=== PATIENT | female | born 1960 | race Caucasian/White ===

== ENCOUNTER 2024-02-24 10:11 | Outpatient (OUT) | payer OTHER, SELFPAY ==
--- NOTE | 2024-02-24 10:29 | XR_ITS ---
The [address] [address] Patient Name: ALBERT ABREU MRN: [id number] date: 1960 Sex: F Assigned Patient Location: [facility] Current Patient Location: Accession/Order Number: [id number] Exam Date: 02/24/2024 10:23 Report Date: 02/25/2024 11:29 At the request of: ROLAND GOMEZ Procedure: XR abdomen 1V EXAMINATION: XR abdomen 1V HISTORY: Kidney Stone COMPARISON: XR KUB 02/27/2022 FINDINGS: KIDNEY/URETER - RIGHT: 5 mm stone projecting over right kidney. KIDNEY/URETER - LEFT: No visible renal or ureteral calcifications. PELVIS: No visible ureteral stones. Stable pelvic calcifications compatible with phleboliths. BOWEL: No abnormal dilation or deviation. BONES: Scoliotic curvature of spine. No appreciable acute abnormality. OTHER: Negative. No abnormal gaseous collections. XR/XR abdomen 1V IMPRESSION: 1. Right nephrolithiasis (5 mm stone suspected within right kidney). Electronically authenticated by: ISRRAEL COOPER Date: 02/25/2024 11:29
== END 2024-02-24 10:12 | disposition home or self-care (01) ==
LOC: RAD 10:16
PROVIDERS: PCP Internal Medicine; Visit Provider Urology
DX: N20.0 Calculus of kidney (principal)
CPT/HCPCS: 74018

== ENCOUNTER 2024-04-04 07:58 | Outpatient (OUT) | payer OTHER, SELFPAY ==
--- NOTE | 2024-04-04 08:02 | ECG_ITS ---
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
--- OUTSIDE RECORDS SUMMARY | 2024-04-04 08:09 | XMS_ITS | CCD ---
Author Organization [facility] Care Team Providers Care Remarketing Rep Name Role Phone Adrian Oneal Jr Attending Provider Juma Buckner Primary Care Provider [phone] Samm Palmer Primary Care Provider [phone] JUMA BUCKNER Primary Care Physician PATRICIA, DR WATKINS Admitting Unavailable VELEZ, DR WATKINS Attending Unavailable VELEZ, DR WATKINS Consulting Unavailable VELEZ, DR WATKINS Attending Unavailable VELEZ, DR WATKINS Consulting Unavailable VELEZ, DR WATKINS Admitting Unavailable HARSH, DR GREEN Primary Care Unavailable KENNETH, DR ISRRAEL Barksdale Consulting Unavailable GILLES ROD Consulting Unavailable VELEZ, DR WATKINS Admitting Unavailable HARSH, DR GREEN Primary Care Unavailable VELEZ, DR WATKINS Attending Unavailable VELEZ, DR WATKINS Consulting Unavailable VELEZ, DR WATKINS Admitting Unavailable BALL, DR GREEN Primary Care Unavailable VELEZ, DR WATKINS Attending Unavailable VELEZ, DR WATKINS Consulting Unavailable BALL, DR GREEN Referring Unavailable BALL, DR GREEN Primary Care Unavailable VELEZ, DR WATKINS Admitting Unavailable VELEZ, DR WATKINS Attending Unavailable VELEZ, DR WATKINS Consulting Unavailable ZIEBER, DR ISRRAEL Barksdale Consulting Unavailable Juma Buckner DO Primary Care Provider Karina Carlson Unavailable Juma Buckner DO Primary Care Provider Juma Buckner Unavailable NAN SARABIA Attending Unavailable RYAN DANIELS Referring Unavailable JUMA BUCKNER Primary Care Unavailable RYAN DANIELS Referring Unavailable JUMA BUCKNER Primary Care Unavailable Wu VELEZ Attending Unavailable Wu VELEZ Attending Unavailable Wu VELEZ Attending Unavailable Allergies Allergy Classification Reported Allergen(s) Allergy Type Date of Onset Reaction(s) Facility Cephalosporins (antibiotic) (1 source) Cephalexin Drug Allergy 1 [facility] (10 sources) Cephalexin; Translations: [cephalexin] Drug Allergy 7 Unknown, Weal (disorder) [facility] (5 sources) Cephalexin; Translations: [Keflex] Drug Allergy [facility] Repository Medications Current Medications Medication Drug Class(es) Dates Sig (Normalized) Sig (Original) Calcium (6 sources) Phosphate Binder, Calcium Start: 10-27-2019 Calcium Calcium, Oral, Daily Start Date: 10/27/19 Status: Ordered Calcium Active calcium carbonate 1250 mg / cholecalciferol 0.01 mg oral tablet (1 source) Vitamin D Start: 02-14-2021 Calcium Carbonate-Vitamin D3 (Calcium 500 + D) 500 mg(1,250mg) -400 unit Tablet Active 2 TAB PO Daily at bedtime February 14, 2021 10:30am Dexamethasone / Neomycin / Polymyxin B (3 sources) Aminoglycoside Antibacterial, Polymyxin-class Antibacterial, Corticosteroid Start: 10-28-2022 Maxitrol 3.5-13374-8 .1 apply directly under left eyelashes Ophthalmic Three times a day for 5 days Oct, Active Start: 10-28-2022 Maxitrol 3.5-1 0000-0.1 apply directly under left eyelashes Ophthalmic Three times a day for 5 days Oct, Active ibuprofen 600 mg oral tablet (1 source) Nonsteroidal Anti-inflammatory Drug Start: 11-07-2019 take 400 mg by mouth once daily Ibuprofen Active 400 MG PO Daily November 07, 2019 4:08pm potassium citrate 10 meq extended release oral tablet (1 source) Start: 02-29-2024 End: 02-23-2025 potassium CITRATE 10 mEq ER Tab 20 mEq, 2 tab(s), Oral, BID for 30 day(s), 120 tab(s), Refill(s) , [id number], 165, cm, 02/29/24 11:29:00 EDT, Height/Length Dosing, 58.5, kg, 02/29/24 11:29:00 EDT, Weight Dosing Start Date: 02/29/24 Stop Date: 02/23/25 Status: Ordered Vitamin D (2 sources) Start: 08-06-2022 Vitamin D International_Un it, Oral, qWeek Start Date: 08/06/22 Status: Ordered Completed/Discontinued Medications Medication Drug Class(es) Dates Sig (Normalized) Sig (Original) anastrozole 1 mg oral tablet (5 sources) Aromatase Inhibitor Start: 11-07-2019 anastrozole (ARIMIDEX) 1 mg tablet TAKE 1 TABLET DAILY 90 tablet 3 01/30/2021 Active Comment on above: TAKE 1 TABLET DAILY Calcium Carbonate / vitamin D3 (4 sources) CALCIUM CARBONATE/VITAMIN D3 (CALCIUM + D ORAL) Take by mouth. 0 Active Comment on above: Take by mouth. cefuroxime 500 mg oral tablet (3 sources) Cephalosporin Antibacterial Start: 01-18-2016 take 1 tablet by mouth twice daily Ceftin 500 MG 1 tablet Orally Twice a day for 10 day(s) January, Not-Taking cephalexin 500 mg oral tablet (3 sources) Cephalosporin Antibacterial Start: 04-19-2015 take 1 capsule by mouth four times daily Keflex 500 MG 1 capsule Orally Four times a day with probiotics for 10 day(s) Apr, Not-Taking cetirizine hydrochloride 10 mg oral tablet (3 sources) Histamine-1 Receptor Antagonist Start: 01-18-2016 take 1 tablet by mouth once daily as needed ZyrTEC Allergy 10 MG 1 tablet as needed Orally Once a day for 30 day(s) January, Not-Taking ciprofloxacin 500 mg oral tablet (1 source) Quinolone Antimicrobial Start: 11-07-2019 End: 02-14-2021 take 500 mg by mouth every twelve hours Ciprofloxacin Hcl Discontinued 500 MG PO Q12H 6 November 07, 2019 6:27pm February 14, 2021 10:32am K-Effervescent 25 mEq oral tablet, effervescent (1 source) Start: 08-06-2022 take 1 tablet by mouth twice daily K-Effervescent 25 mEq oral tablet, effervescent 25 mEq = 1 tab(s), Oral, BID, # 180 tab(s), Refills(s) 3, Pharmacy: [facility] #[id number], 165, cm, 08/06/22 15:18:00 EST, Height/Length Dosing, 56, kg, 08/06/22 15:18:00 EST, Weight Dosing Start Date: 08/06/22 Status: Ordered ketorolac tromethamine 10 mg oral tablet (1 source) Nonsteroidal Anti-inflammatory Drug, Cyclooxygenase Inhibitor Start: 11-07-2019 End: 02-14-2021 take 10 mg by mouth every six hours Ketorolac Discontinued 10 MG PO Q6H 10 15 November 07, 2019 6:27pm February 14, 2021 10:31am nitrofurantoin, macrocrystals 25 mg / nitrofurantoin, monohydrate 75 mg oral capsule (1 source) Nitrofuran Antibacterial Start: 11-07-2019 End: 02-14-2021 take 100 mg by mouth twice daily Nitrofurantoin Monohyd/M-Cryst Discontinued 100 MG PO Twice daily November 07, 2019 4:08pm February 14, 2021 10:31am potassium bicarbonate 25 meq effervescent oral tablet (4 sources) Start: 03-30-2023 KLOR-CON/EF 25 mEq disintegrating tablet predniSONE (3 sources) prednisone Not-Taking tamsulosin hydrochloride 0.4 mg oral capsule (1 source) alpha-Adrenergic Baldo Start: 11-07-2019 End: 02-14-2021 take 0.4 mg by mouth once daily Tamsulosin Discontinued 0.4 MG PO Daily November 07, 2019 4:08pm February 14, 2021 10:31am Problems Active Problems Problem Classification Problem Date Documented Da te Episodic/Chronic Abdominal pain (3 sources) Lower abdominal pain 10-27-2019 Episodic Calculus of urinary tract (16 sources) Kidney stone; Translations: [Calculus of kidney] Onset: 03-12-2022 Episodic Cancer of breast (11 sources) Malignant neoplasm of upper-outer quadrant of female breast; Translations: [Malignant neoplasm of upper-outer quadrant of right female breast] Onset: 09-16-2018 09-16-2018 Chronic Genitourinary symptoms and ill-defined conditions (13 sources) Microscopic hematuria; Translations: [Asymptomatic microscopic hematuria] Onset: 04-15-2021 Episodic Inflammation; infection of eye (except that caused by tuberculosis or sexually transmitteddisease) (1 source) Unspecified acute conjunctivitis, left eye Episodic Joint disorders and dislocations; trauma-related (3 sources) Loose body in knee; Translations: [Loose body in knee, unspecified knee] Chronic Osteoporosis (2 sources) Senile osteoporosis; Translations: [Age-related osteoporosis without current pathological fracture] Chronic Other bone disease and musculoskeletal deformities (3 sources) Other specified disorders of bone density and structure, other site; Translations: [Osteopenia of lumbar spine] Episodic Other circulatory disease (1 source) Elevated blood-pressure reading, without diagnosis of hypertension Episodic Other diseases of kidney and ureters (3 sources) Hydronephrosis due to ureteral obstruction 11-03-2019 Episodic Other screening for suspected conditions (not mental disorders or infectious disease) (1 source) Patient encounter status; Translations: [Encounter for screening mammogram for malignant neoplasm of breast] 04-27-2023 Episodic Other skin disorders (1 source) Localized swelling, mass and lump, unspecified Episodic Residual codes; unclassified (1 source) Estrogen receptor positive status [ER+] Episodic Unclassified (3 sources) Asymptomatic microscopic hematuria 12-04-2020 Past or Other Problems Problem Classification Problem Date Documented Da te Episodic/Chronic Cancer of breast (1 source) Personal history of malignant neoplasm of breast; Translations: [PERS HX MALIGNANT NEOPLASM BREAST] Onset: 04-15-2021 Episodic Other bone disease and musculoskeletal deformities (4 sources) Osteopenia; Translations: [Other specified disorders of bone density and structure, unspecified site] Onset: 09-18-2018 09-18-2018 Episodic Results Test Name Value Interpretation Reference Range Facility Ambulatory Visit Summaryon 0 02-29-2024 Ambulatory Visit Summary JO-ANN ROBERTS :1960 Visit Date:02/29/2024 Ambulatory Visit Instructions Your Diagnosis Kidney stones Asymptomatic microscopic hematuria Tests Performed XR Abdomen 1 View -- Results Pending -- Please visit your patient portal for your results or contact your primary care physician. Your Care Team Attending Physician - Wu VELEZ MD Primary Care Physician - JUMA BUCKNER DO This Is Your Medications List potassium citrate (potassium CITRATE 10 mEq ER Tab) Contact prescribing physician if questions or concerns Non-Formulary Medication (Calcium) ergocalciferol (Vitamin D) [Image Removed: STOP]Stop taking these medications potassium bicarbonate (K-Effervescent 25 mEq oral tablet, effervescent) Procedures Performed ESWL of kidney (2021), Cystoscopy (11/07/2019), Appendectomy, Breast, Tonsillectomy. Discharge Vitals Temperature (Temporal Artery) 37 ?C Heart Rate (Peripheral) 69 Respiratory Rate 16 Blood Pressure 124/84 Height 165 cm Height 65 in Weight 58.5 kg Weight 128.7 lb BMI 21.49 What to do next You Need to Schedule the Following Appointments Follow Up with PATRICIA STRICKLAND, TIM Herbert When: Comments: 1 yr w/ PATRICIA Where: [facility] [address], [place] [address] [phone] Medications What How Much When Instructions New potassium citrate (potassium CITRATE 10 mEq ER Tab) 2 Tablets By Mouth 2 times a day Duration: 30 Days Refills: 11 Pickup at [facility] #[id number] Unchanged ergocalciferol (Vitamin D) By Mouth Every week Contact prescribing physician if questions or concerns Unchanged Non-Formulary Medication (Calcium) By Mouth Every day Contact prescribing physician if questions or concerns Pharmacy Information [facility] #[id number]: [id number], [place] [phone] What How Much When Comments Stop Taking potassium bicarbonate (K-Effervescent 25 mEq oral tablet, effervescent) 1 Tablets By Mouth 2 times a day Allergies Keflex (Hives) Problems Ongoing - Any problem that you are currently receiving treatment for. Asymptomatic microscopic hematuria Breast cancer Dysuria Gross hematuria Hydronephrosis with urinary obstruction due to ureteral calculus Kidney stones Lower abdominal pain Microscopic hematuria Ureteral stone Patient Survey You may receive a survey via text or e-mail asking about your office visit. Please share your experience with us by completing your survey. We appreciate your feedback and thank you for choosing us for your care. Education Materials Dietary Guidelines to Help Prevent Kidney Stones Kidney stones are deposits of minerals and salts that form inside your kidneys. Your risk of developing kidney stones may be greater depending on your diet, your lifestyle, the medicines you take, and whether you have certain medical conditions. Most people can lower their risks of developing kidney stones by following these dietary guidelines. Your dietitian may give you more specific instructions depending on your overall health and the type of kidney stones you tend to develop. What are tips for following this plan? Reading food labels ? Choose foods with no salt added or low-salt labels. Limit your salt (sodium) intake to less than 1,500 mg a day. ? Choose foods with calcium for each meal and snack. Try to eat about 300 mg of calcium at each meal. Foods that contain 200?500 mg of calcium a serving include: ? 8 oz (237 mL) of milk, calcium-fortifiednon -dairy milk, and calcium-fortifiedfru it juice. Calcium-fortified means that calcium has been added to these drinks. ? 8 oz (237 mL) of kefir, yogurt, and soy yogurt. ? 4 oz (114 g) of tofu. ? 1 oz (28 g) of cheese. ? 1 cup (150 g) of dried figs. ? 1 cup (91 g) of cooked broccoli. ? One 3 oz (85 g) can of sardines or mackerel. Most people need 1,000?1,500 mg of calcium a day. Talk to your dietitian about how much calcium is recommended for you. Shopping ? Buy plenty of fresh fruits and vegetables. Most people do not need to avoid fruits and vegetables, even if these foods contain nutrients that may contribute to kidney stones. ? When shopping for convenience foods, choose: ? Whole pieces of fruit. ? Pre-made salads with dressing on the side. ? Low-fat fruit and yogurt smoothies. ? Avoid buying frozen meals or prepared deli foods. These can be high in sodium. ? Look for foods with live cultures, such as yogurt and kefir. ? Choose high-fiber grains, such as whole-wheat breads, oat bran, and wheat cereals. Cooking ? Do not add salt to food when cooking. Place a salt shaker on the table and allow each person to add their own salt to taste. ? Use vegetable protein, such as beans, textured vegetable protein (TVP), or tofu, instead of meat in pasta, casseroles, and soups. Meal planning ? Eat (more content not included)... Normal [facility] Patient Educationon 02-29-20 Patient Education Nephrology Dietary Guidelines to Help Prevent Kidney Stones Kidney stones are deposits of minerals and salts that form inside your kidneys. Your risk of developing kidney stones may be greater depending on your diet, your lifestyle, the medicines you take, and whether you have certain medical conditions. Most people can lower their risks of developing kidney stones by following these dietary guidelines. Your dietitian may give you more specific instructions depending on your overall health and the type of kidney stones you tend to develop. What are tips for following this plan? Reading food labels ? Choose foods with no salt added or low-salt labels. Limit your salt (sodium) intake to less than 1,500 mg a day. ? Choose foods with calcium for each meal and snack. Try to eat about 300 mg of calcium at each meal. Foods that contain 200?500 mg of calcium a serving include: ? 8 oz (237 mL) of milk, calcium-fortifiednon -dairy milk, and calcium-fortifiedfru it juice. Calcium-fortified means that calcium has been added to these drinks. ? 8 oz (237 mL) of kefir, yogurt, and soy yogurt. ? 4 oz (114 g) of tofu. ? 1 oz (28 g) of cheese. ? 1 cup (150 g) of dried figs. ? 1 cup (91 g) of cooked broccoli. ? One 3 oz (85 g) can of sardines or mackerel. Most people need 1,000?1,500 mg of calcium a day. Talk to your dietitian about how much calcium is recommended for you. Shopping ? Buy plenty of fresh fruits and vegetables. Most people do not need to avoid fruits and vegetables, even if these foods contain nutrients that may contribute to kidney stones. ? When shopping for convenience foods, choose: ? Whole pieces of fruit. ? Pre-made salads with dressing on the side. ? Low-fat fruit and yogurt smoothies. ? Avoid buying frozen meals or prepared deli foods. These can be high in sodium. ? Look for foods with live cultures, such as yogurt and kefir. ? Choose high-fiber grains, such as whole-wheat breads, oat bran, and wheat cereals. Cooking ? Do not add salt to food when cooking. Place a salt shaker on the table and allow each person to add their own salt to taste. ? Use vegetable protein, such as beans, textured vegetable protein (TVP), or tofu, instead of meat in pasta, casseroles, and soups. Meal planning ? Eat less salt, if told by your dietitian. To do this: ? Avoid eating processed or pre-made food. ? Avoid eating fast food. ? Eat less animal protein, including cheese, meat, poultry, or fish, if told by your dietitian. To do this: ? Limit the number of times you have meat, poultry, fish, or cheese each week. Eat a diet free of meat at least 2 days a week. ? Eat only one serving each day of meat, poultry, fish, or seafood. ? When you prepare animal proteins, cut pieces into small portion sizes. For most meat and fish, one serving is about the size of the palm of your hand. ? Eat at least five servings of fresh fruits and vegetables each day. To do this: ? Keep fruits and vegetables on hand for snacks. ? Eat one piece of fruit or a handful of berries with breakfast. ? Have a salad and fruit at lunch. ? Have two kinds of vegetables at dinner. ? You may be told to limit foods that are high in a substance called oxalate. These include: ? Spinach (cooked), rhubarb, beets, sweet potatoes, and [place]i chard. ? Peanuts. ? Potato chips, tongan fries, and baked potatoes with skin on. ? Nuts and nut products. ? Chocolate. ? If you regularly take a diuretic medicine, make sure to eat at least 1 or 2 servings of fruits or vegetables that are high in potassium each day. These include: ? Avocado. ? Banana. ? [place], prune, carrot, or tomato juice. ? Baked potato. ? Cabbage. ? Beans and split peas. Lifestyle ? Drink enough fluid to keep your urine pale yellow. This is the most important thing you can do. Spread your fluid intake throughout the day. ? If you drink alcohol: ? Limit how much you have to: ? 0?1 drink a day for women who are not . ? 0?2 drinks a day for men. ? Know how much alcohol is in your drink. In the [place] one drink equals one 12 oz bottle of beer (355 mL), one 5 oz glass of wine (148 mL), or one 1? oz glass of hard liquor (44 mL). ? Lose weight if told by your health care provider. Work with your dietitian to find an eating plan and weight loss strategies that work best for you. General information ? Talk to your health care provider and dietitian about taking daily supplements. Depending on your health and the cause of your kidney stones, you may be told: ? Do not take high-dose supplements of vitamin C (1,000 mg a day or more). ? To take a calcium supplement. ? To take a daily probiotic supplement. ? To take other supplements such as magnesium, fish oil, or vitamin B6. ? Take uhna-eaf-zbhelhd and prescription medicines only as told by your health care provider. These include supplements. What foods sh (more content not included)... Normal [facility] Urology Office/Clinic Noteon 02-29-2024 Urology Office/Clinic Note Chief Complaint kidney stones and asymptomatic microhematuria HPI Staff 1 yr with KUB @ [facility] 02/24/24 due to kidney stones. Previous DX: asymptomatic microscopic hematuria, dysuria, gross hematuria, hydronephrosis with urinary obstruction due to ureteral calculus, kidney stones, lower abdominal pain, microscopic hematuria, ureteral stone. S/P ESWL 04/11/21. Started Effer-K 25mEq BID at prior OV. Electrolyte panel was not done. Could not find any pertaining labs from PCP ([facility], [facility], or [facility] [place] either. Dysuria: no Incomplete bladder emptying: no Hematuria: no Frequency: no Urgency: no Nocturia: 1x Stream: no straining or intermittency Leaking: no Post void dripping: no Wearing pads/ Depends: no Urge incontinence: no Stress incontinence: no Incontinence without Sensory Awareness: no Abdominal pain: no Flank pain: no Sexual complaints: no History of Present Illness Tests reviewed: reviewed UA, KUB I have reviewed the previous health record information and history for this patient from Dr. Velez. I have reviewed and verified the staff HPI to be accurate for this encounter. Review of Systems PHQ Score Initial Depression Screen Score: 0 SCORE ROS - Provider Constitutional: denies weight loss, denies hot flashes. Eyes: denies eye problems. Gastrointestinal: denies nausea, denies vomiting. Cardiovascular: denies chest pain or angina. Integumentary: no dryness Musculoskeletal: denies musculoskeletal symptoms. ENMT: denies otolaryngeal symptoms. Respiratory: no shortness of breath. Heme/Lymph: denies easy bleeding tendency, denies easy bruising tendency. Psychiatric: no confusion, no anxiety. Genitourinary: See HPI. Physical Exam Vitals & Measurements T: 37 ?C(Temporal Artery) HR: 69(Peripheral) RR: 16 BP: 124/84 HT: 65 in HT: 165 cm WT: 58.5 kg WT: 128.7 lb BMI: 21.49 General Appearance: alert , no acute distress, well nourished, well developed female. Assessment/Plan 1. Kidney stones (N20.0: Calculus of kidney) S/P L ESWL 04/11/21. KUB 02/28/22 - A small stone projecting over inferior pole of the right kidney, not measured. Met workup 04/01/22: Volume - 2024, slightly low. Citric acid - 265, low. Oxalates - 28. Calcium normal. KUB 02/24/24 TBH - 5 mm R renal stone. Started on Effer-K 25mEq bid at prior OV. Has only been taking this once per day. Eden bloated when she took bid. Advised pt this can be taken in pills vs effervescent tabs. States she is interested in trying this. Reviewed imaging results. Has stable R renal stone. No indication for intervention at this time but can consider if pt prefers more aggressive management. Drinks 4 cups of water per day. Recommended pt to increase fluid intake to ten to twelve 16oz bottles a day; preferably water, clear pop, and sugar free lemonade. -Switch Effer-K to potassium citrate 10mEq bid. Rx sent to [facility]. -Increase water intake -KUB in 1 year -Consider R ESWL in future. Pt to call if she wishes to proceed. The procedure risks, benefits, details and treatment alternatives have been discussed with the patient. These include blood in the urine, infection, bleeding around the kidney, kidney bruising, inability to break up the stone, need for blood transfusion, blockage from stone fragments, and need for additional procedures, among others. Full informed consent has been obtained. Will order General anesthesia. 2. Asymptomatic microscopic hematuria (R31.21: Asymptomatic microscopic hematuria) Chronic. UA today shows moderate (large) blood. Follow-up With When Contact Information PATRICIA STRICKLAND, Wu Barksdale, [facility] [address], [place] [phone] Additional Instructions: 1 yr w/ KUB Patient Education Dietary Guidelines to Help Prevent Kidney Stones Nella Guillory, personally scribed for Dr. Velez on 02/29/2024 11:56:08. . Documentation recorded by the scribe, Nella Carrillo, accurately reflects the services(s) I performed and decisions made by me. Authenticated by Dr. Velez on 02/29/2024 12:00:25. Problem List/Past Medical History Ongoing Asymptomatic microscopic hematuria Breast cancer Dysuria Gross hematuria Hydronephrosis with urinary obstruction due to ureteral calculus Kidney stones Lower abdominal pain Microscopic hematuria Ureteral stone Historical No qualifying data Procedure/Surgical History ESWL of kidney (2021), Cystoscopy (11/07/2019), Appendectomy, Breast, Tonsillectomy. Medications Calcium, Oral, Daily K-Effervescent 25 mEq oral tablet, effervescent, 25 mEq= 1 tab(s), Oral, BID, 3 refills Vitamin D, Oral, qWeek Allergies Keflex (Hives) Social History Alcohol - Denies Alcohol Use, 12/04/2020 Substance Abuse - Denies Substance Abuse, 12/04/2020 Tobacco - Denies Tobacco Use, 12/04/2020 Never (less than 100 in lifetime) Tobacco Use:. Never Smokeless Tobacco Use:. Household (more content not included)... [facility] Comment on above: Result Comment: Elec tronically Signed By: Wu VELEZ MD\.br\Date and Time Signed: 02/29/24 12:00 EDT\.br\Electronically Co-Signed By: Nella Carrillo\.br\Date and Time Co-Signed: 02/29/24 11:56 EDT [facility] - MIS [id number] #[id number] [facility] [facility] CNOVSP Visit (SP) Office ([place]) JO-ANN ROBERTS ([id number]) 1960 F Date Time Provider Department 07/16/23 3:15 PM NAN SARABIA During your visit today, we recorded the following information about you: Temperature Pulse Respiration Blood pressure 97.5 degrees 80/minute 16/minute 159/70 Weight Height 58.2 kg 1.651 m Nan Sarabia MD 07/17/2023 5:54 AM Signed PATIENT NAME: Jo-Ann Roberts DATE: 07/16/2023 PRIMARY CARE PHYSICIAN: Dr. Loi Rios OTHER PHYSICIANS: Dr. Harrison, Dr. White Portions of this encounter note have been copied from my note from 06/16/2022 and has been updated where appropriate, and reflect my current medical decision making from today. CC: This is a 63 year old female with a history of breast cancer, seen for scheduled follow-up (prior patient of Dr. Birmingham). INTERIM HISTORY: Since the patient's last visit here she noticed a cyst near the proximal joint of her right fifth finger several months ago. It is not tender and has no signs of infection. Otherwise she has had no significant medical changes. When seen by her PCP to discuss options for osteoporosis treatment it was elected to continue with vitamin D/calcium and exercise. Plans will be to consider adding an antiresorptive agent if her bone density worsens. The patient has noticed no changes in her breasts. No unusual pain or other systemic symptoms. MEDICATIONS: anastrozole (ARIMIDEX) 1 mg tablet TAKE 1 TABLET DAILY CALCIUM CARBONATE/VITAMIN D3 (CALCIUM + D ORAL) Take by mouth. ALLERGIES: Keflex [Cephalexin] PAST MEDICAL HISTORY: PAST MEDICAL HISTORY Diagnosis Date Breast cancer (HCC) Right; ER+ [place]- PAST SURGICAL HISTORY: PAST SURGICAL HISTORY Procedure Laterality Date APPENDECTOMY BREAST BIOPSY LUMPECTOMY/RADIOTHER APY DIAG MAMM/A10 TONSILLECTOMY HX REVIEW OF SYSTEMS: General: No weight loss, malaise or fevers. HEENT: Negative for frequent or significant headaches. No changes in hearing or vision, no nose bleeds or other nasal problems. Respiratory: Negative for cough, wheezing or shortness of breath. Cardiovascular: Negative for chest pain, leg swelling or palpitations. GI: Negative for abdominal discomfort, blood in stools or black stools or change in bowel habits. : No history of dysuria, frequency or incontinence. Musculoskeletal: Negative for: joint pain or swelling, back pain and muscle pain. Skin: Negative for lesions, rash and itching. Hematolgy/Lymphology : Negative for prolonged bleeding, bruising easily or swollen nodes. Neuro: No history of headaches, syncope, paralysis, seizures or tremors. PHYSICAL EXAM: Vitals: BP 159/70 Pulse 80 Temp 36.4 ?C (97.5 ?F) Resp 16 Ht 165.1 cm (5' 5 ) Wt 58.2 kg (128 lb 3.2 oz) SpO2 100% BMI 21.33 kg/m? Exam limited to gross visualization where appropriate due to COVID-19. Gen.: This is an age-appropriate patient in no acute distress. Head: Appears atraumatic with no visible lesions. Eyes: Pupils equally round and reactive to light, extraocular muscles are intact. Neck: Supple. Mouth: Mucous membranes appeared to be moist. Respiratory: Appears to be respiring comfortably. Neurologic: Nonfocal to gross visualization. Alert and oriented ?3. Psychiatric: No evidence of inappropriate anxiety or depression. Skin: Visible areas of skin without rash, lesions, wounds or petechiae. Breast examination revealed cystic breasts bilaterally, otherwise no suspicious findings LABORATORY DATA: Hemoglobin (g/dL) Date Value 06/17/2021 13.0 Hematocrit (%) Date Value 06/17/2021 39.1 WBC (k/uL) Date Value 06/17/2021 5.28 Platelet Count (k/uL) Date Value 06/17/2021 197 RADIOLOGY/OTHER STUDIES: 05/04/2023 Bilateral diagnostic mammogram ([facility]) Stable postsurgical change in the right breast. No mammographic evidence of malignancy.. Routine follow-up in 1 year recommended. 05/02/2022 Bone density DEXA ([facility]) Osteoporosis. Max T score -2.6 left femoral neck, left femur, and right femur. ASSESSMENT/PLAN: 1. 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 Status post lumpectomy and sentinel node procedure 01/06/2012. Final pathology: primary tumor 1 cm, 1 of 2 sentinel nodes involved with micrometastases. Postop the patient received adjuvant chemotherapy with docetaxel and cyclophosphamide ?4 cycles February 2012 through April 2012. She subsequently received adjuvant radiation therapy. Status post adjuvant hormonal therapy with Anastrozole x 9 years May 2012 through June 2021. Currently no evidence disease. At this time would recommend cont (more content not included)... Normal [facility] CNPNon 07-16-2023 CNPN Telephone (NCCAP) JO-ANN ROBERTS ([id number]) 1960 F Date Time Provider Department 07/16/23 NAN SARABIA During your visit today, we recorded the following information about you: Ayala James 07/16/2023 3:[address] new DEXA order. I believe the DXA Forearm is incorrect? Thanks! Ryan Chirinos APRN.HEIDI 07/17/2023 11:40 AM Signed New order placed. Ryan Daniels APRN.CNP Allergies As of Date: 07/16/2023 Noted Allergy Reaction KEFLEX (CEPHALEXIN) 01/14/2017 16 - Unknown Date Reviewed: 07/16/2023 Reviewed by: Akua Jorge MA - Fully Assessed Reason for Visit: Orders [681] Primary Visit Diagnosis:Osteopenia of multiple sites [M85.89] Order(s):DXA-AXIAL SKELETON [[id number]] Order #: [id number] FUTURE Prescriptions as of 07/17/2023 - KLOR-CON/EF 25 mEq disintegrating tablet - anastrozole (ARIMIDEX) 1 mg tablet TAKE 1 TABLET DAILY - CALCIUM CARBONATE/VITAMIN D3 (CALCIUM + D ORAL) Take by mouth. Problem List As Of Date 07/16/2023 Noted Resolved Breast CA (HCC) [C50.919] 09/02/2012 09/16/2018 Malignant neoplasm of upper-outer quadrant of r*09/16/2018 Osteopenia [M85.80] 09/18/2018 Encounter Status:Closed by [facility]) LOISJO-ANN MORENO ([id number]) 1960 F Date Time Provider Department 04/27/23 DIPTI ULLOA During your visit today, we recorded the following information about you: Dipti Ulloa RN 04/27/2023 1:21 PM Signed Patient is scheduled for aida diagnostic memo. Per their protocol since she is so far out from diagnosis they need a aida screening ordered with a screening dx. Dipti Ulloa RN ' BRM: Order pended for signature. PSS: Please fax to [phone] Thanks. KALEIGH Rodriguez Tiffany 04/27/2023 2:22 PM Signed Will fax over order thanks Ayala Schreiber 04/27/2023 4:23 PM Signed Received order at front desk person. Faxed order April 27, 2023 4:23 PM Ayala James Allergies As of Date: 04/27/2023 Noted Allergy Reaction KEFLEX (CEPHALEXIN) 01/14/2017 16 - Unknown Date Reviewed: 06/16/2022 Reviewed by: Arina Smith - Fully Assessed Reason for Visit: Orders [681] Primary Visit Diagnosis:Encounter for screening mammogram for malignant neoplasm of breast [Z12.31] Order(s):MEMO SCREENING [[id number]] Order #: [id number] FUTURE Prescriptions as of 04/27/2023 - anastrozole (ARIMIDEX) 1 mg tablet TAKE 1 TABLET DAILY - CALCIUM CARBONATE/VITAMIN D3 (CALCIUM + D ORAL) Take by mouth. Problem List As Of Date 04/27/2023 Noted Resolved Breast CA (HCC) [C50.919] 09/02/2012 09/16/2018 Malignant neoplasm of upper-outer quadrant of r*09/16/2018 Osteopenia [M85.80] 09/18/2018 Encounter Status:Closed by DIPTI ULLOA on 04/27/23 [facility] OX[facility]ATE 24HR URINEon 022 Oxalates, Urine 14 mg/L Normal Undefined [facility] Comment on above: Performed By: #### U NICHOLE 24 #### [facility] [address] [address] [address] Lizzette Braga Oxalates, Urine 24hr 28 mg/24 hr Normal 4-31 [facility] Comment on above: Performed By: #### U NICHOLE 24 #### [facility] [address] [place] [address] Dr. Lizzette Braga CITRATE URINE 24HRon 022 Citric Acid, U, 24hr 265 mg/24 hr Critically low 320-1240 [facility] Comment on above: Result Comment: This test was developed and its performance characteristics determined by [facility]. It has not been cleared or approved by the Food and Drug Administration. Performed By: #### U NICHOLE 24 #### [facility] [address] [address] [address] Lizzette Braga Citric Acid, Urine 131 mg/L Normal Undefined [facility] Comment on above: Performed By: #### U NICHOLE 24 #### [facility] [address] [address] [address] Lizzette Braga MAGNESIUM 24HR URINEon 04-03 Magnesium 24hr Urine 68.9 mg/24 hr Normal 12.0-293.0 [facility] Comment on above: Performed By: #### U NICHOLE 24 #### [facility] [address] [address] [address] Lizzette Braga Magnesium UR 3.4 mg/dL Normal Not Estab. [facility] Comment on above: Performed By: #### U NICHOLE 24 #### [facility] [address] [place] [address] Dr. Lizzette Braga PHOSPHORUS 24HR URINEon 07-2 8-2022 Phosphorus, Urine 21.6 mg/dL Normal Not Estab. [facility] Comment on above: Performed By: #### U NICHOLE 24 #### [facility] [address] [place] [address] Dr. Lizzette Braga Phosphorus, Urine 24hr 437 mg/24 hr Normal 261-1078 [facility] Comment on above: Performed By: #### U NICHOLE 24 #### [facility] [address] [place] [address] Dr. Lizzette Braga URIC ACID 24 HR URINEon 07- Uric Acid, Urine 19.0 mg/dL Normal Not Estab. [facility] Comment on above: Performed By: #### U NICHOLE 24 #### [facility] [address] [place] [address] Dr. Lizzette Braga Uric Acid, Urine 24hr 384.8 mg/24 hr Normal 142.3-713. 2 [facility] Comment on above: Performed By: #### U NICHOLE 24 #### [facility] [address] [place] [address] Dr. Lizzette Braga CALCIUM 24 HR URINEon 2021 CALC, 24 HR UR 141.8 mg/24 hr Normal 100.0-300.0 [facility] Comment on above: Performed By: #### U NICHOLE 24 #### [facility] [address] [place] [address] Dr. Lizzette Braga UR CALCIUM 7.0 mg/dL Normal 5.1-21.0 [facility] Comment on above: Performed By: #### U NICHOLE 24 #### [facility] [address] [place] [address] Dr. Lizzette Braga CREA 24 HR URINEon 2 CREA, 24 HR UR 896.06 mg/24 hr Normal 800.00-1,8 00.0 0 [facility] Comment on above: Performed By: #### U NICHOLE 24 #### [facility] [address] [place] [address] Dr. Lizzette Braga URINE CREAT 44.25 mg/dL Normal 20.00-300.00 [facility] Comment on above: Performed By: #### U NICHOLE 24 #### [facility] [address] [address] [address] Lizzette Braga PTH INTACTon 04-01-2022 PTH, Intact 36 pg/mL Normal 15-65 [facility] Comment on above: Performed By: #### U NICHOLE 24 #### [facility] [address] [place] [address] Dr. Lizzette Braga SODIUM 24 HR URINEon 022 NA, 24 HR UR 99 mmol/24 hr Normal 40-220 [facility] Comment on above: Performed By: #### U NICHOLE 24 #### [facility] [address] [place] [address] Dr. Lizzette Braga Sodium (U) [Moles/Vol] 49 mmol/L Normal 30-90 [facility] Comment on above: Performed By: #### U NICHOLE 24 #### [facility] [address] [place] [address] Dr. Lizzette Braga UR TOT VOL 2025 ml/24 HR Normal [facility] Comment on above: Performed By: #### U NICHOLE 24 #### [facility] [address] [place] [address] Dr. Lizzette Braga BUNon 03-31-2022 Urea nitrogen [Mass/Vol] 18.0 mg/dL Normal 7.0-18.0 [facility] Comment on above: Performed By: #### C O2, CA, URIC, NA, K, CREA, BUN, CL #### [facility] [address] [place] [address] Dr. Lizzette Braga CALCIUMon 03-31-2022 Calcium [Mass/Vol] 9.0 mg/dL Normal 8.5-10.1 [facility] Comment on above: Performed By: #### U NICHOLE 24 #### [facility] [address] [place] [address] Dr. Lizzette Braga CHLORIDEon 03-31-2022 Chloride [Moles/Vol] 105 mmol/L Normal 98-107 [facility] Comment on above: Performed By: #### C O2, CA, URIC, NA, K, CREA, BUN, CL #### [facility] [address] [address] [address] Lizzette Braga CO2on 03-31-2022 CO2 [Moles/Vol] 27.7 mmol/L Normal 21.0-32.0 [facility] Comment on above: Performed By: #### C O2, CA, URIC, NA, K, CREA, BUN, CL #### [facility] [address] [address] [address] Lizzette Braga CREATININEon 03-31-2022 Creatinine [Mass/Vol] 0.96 mg/dL Normal 0.55-1.02 [facility] Comment on above: Performed By: #### C O2, CA, URIC, NA, K, CREA, BUN, CL #### [facility] [address] [address] [address] Lizzette Braga EGFR-AF CANADIAN >60 Normal >=60 [facility] Comment on above: Performed By: #### C O2, CA, URIC, NA, K, CREA, BUN, CL #### [facility] [address] [place] [address] Dr. Lizzette Braga EGFR-NON AF CANADIAN 59 mL/min/1.73m2 Critically low >=60 [facility] Comment on above: Performed By: #### C O2, CA, URIC, NA, K, CREA, BUN, CL #### [facility] [address] [place] [address] Dr. Lizzette Braga NAon 03-31-2022 Sodium [Moles/Vol] 141 mmol/L Normal 136-145 [facility] Comment on above: Performed By: #### C O2, CA, URIC, NA, K, CREA, BUN, CL #### [facility] [address] [address] [address] Lizzette Braga POTASSIUMon 03-31-2022 Potassium [Moles/Vol] 4.1 mmol/L Normal 3.5-5.1 [facility] Comment on above: Performed By: #### C O2, CA, URIC, NA, K, CREA, BUN, CL #### [facility] [address] [place] [address] Dr. Lizzette Braga URIC ACID SERUMon 03-31-2022 Urate [Mass/Vol] 3.0 mg/dL Normal 2.6-6.0 [facility] Comment on above: Performed By: #### C O2, CA, URIC, NA, K, CREA, BUN, CL #### [facility] [address] [address] [address] Lizzette Braga XR KUB 1 VIEWon 02-28-2022 XR KUB 1 VIEW EXAMINATION: XR KUB 1 VIEW HISTORY: Kidney stone follow-up COMPARISON: XR KUB 2021 FINDINGS: KIDNEY/URETER - RIGHT: Small stone projecting over inferior pole of right kidney. KIDNEY/URETER - LEFT: No visible renal or ureteral calcifications. PELVIS: Stable pelvic calcifications compatible with phleboliths and atherosclerotic disease. BOWEL: No abnormal dilation or deviation. BONES: No acute abnormality. OTHER: Negative. No abnormal gaseous collections. IMPRESSION: 1. Right nephrolithiasis. Electronically authenticated by: ISRRAEL COOPER Date: 2022-02-28 06:17 Normal [facility] CALCULI, URINARYon 1 2,8 Dihydroxyadenine Normal [facility] Comment on above: Performed By: #### U NICHOLE 24 #### [facility] [address] [place] [address] Dr. Lizzette Braga Ammonium Acid Urate Normal [facility] Comment on above: Performed By: #### U NICHOLE 24 #### [facility] [address] [place] [address] Dr. Lizzette Braga Bilirubin Ql (U) Normal [facility] Comment on above: Performed By: #### U NICHOLE 24 #### [facility] [address] [place] [address] Dr. Lizzette Braga Ca Oxalate Dihydrate 20 % Normal [facility] Comment on above: Performed By: #### U NICHOLE 24 #### [facility] [address] [place] [address] Dr. Lizzette Braga CaHPO4 (Brushite) Normal [facility] Comment on above: Performed By: #### U NICHOLE 24 #### [facility] [address] [place] [address] Dr. Lizzette Braga Calcium Bilirubinate [facility] Comment on above: Performed By: #### U NICHOLE 24 #### [facility] [address] [address] [address] Lizzette Braga Calcium Carbonate [facility] Comment on above: Performed By: #### U NICHOLE 24 #### [facility] [address] [address] [address] Lizzette Braga Calcium Oxalate Monohydrate 80 % [facility] Comment on above: Performed By: #### U NICHOLE 24 #### [facility] [address] [address] [address] Lizzette Braga Calcium Palmitate [facility] Comment on above: Performed By: #### U NICHOLE 24 #### [facility] [address] [address] [address] Lizzette Braga Calcium Phosphate [facility] Comment on above: Performed By: #### U NICHOLE 24 #### [facility] [address] [address] [address] Lizzette Braga Calcium Stearate [facility] Comment on above: Performed By: #### U NICHOLE 24 #### [facility] [address] [address] [address] Lizzette Braga Carbonate Apatite [facility] Comment on above: Performed By: #### U NICHOLE 24 #### [facility] [address] [address] [address] Lizzette Braga Cellular Material [facility] Comment on above: Performed By: #### U NICHOLE 24 #### [facility] [address] [address] [address] Lizzette Braga Cholesterol [facility] Comment on above: Performed By: #### U NICHOLE 24 #### [facility] [address] [address] [address] Lizzette Andrews (U) Brown [facility] Comment on above: Performed By: #### U NICHOLE 24 #### [facility] [address] [address] [address] Lizzette Braga Comment [facility] Comment on above: Performed By: #### U NICHOLE 24 #### [facility] [address] [address] [address] Lizzette Braga Comment: Comment Normal [facility] Comment on above: Result Comment: Lyle carias questions regarding Calculi Analysis contact [facility] at: [phone]. Performed By: #### U NICHOLE 24 #### [facility] [address] [address] [address] Lizzette Braga Composition Comment Normal [facility] Comment on above: Result Comment: Perc entage (Represents the % composition) Performed By: #### U NICHOLE 24 #### [facility] [address] [address] [address] Lizzette Braga Cystine Normal [facility] Comment on above: Performed By: #### U NICHOLE 24 #### [facility] [address] [place] [address] Dr. Lizzette Braga Disclaimer: Comment Normal [facility] Comment on above: Result Comment: This test was developed and its performance characteristics determined by [facility]. It has not been cleared or approved by the Food and Drug Administration. Performed By: #### U NICHOLE 24 #### [facility] [address] [address] [address] Lizzette Braga Dried Blood Normal [facility] Comment on above: Performed By: #### U NICHOLE 24 #### [facility] [address] [place] [address] Dr. Lizzette Braga Drug or Metabolite Normal [facility] Comment on above: Performed By: #### U NICHOLE 24 #### [facility] [address] [address] [address] Lizzette Braga Hydroxyapatite Normal [facility] Comment on above: Performed By: #### U NICHOLE 24 #### [facility] [address] [place] [address] Dr. Lizzette Braga Mg NH4 PO4 (Struvite) Normal [facility] Comment on above: Performed By: #### U NICHOLE 24 #### [facility] [address] [place] [address] Dr. Lizzette Braga MgHPO4 (Newberyite) Normal [facility] Comment on above: Performed By: #### U NICHOLE 24 #### [facility] [address] [address] [address] Lizzette Braga Other component(s) Normal [facility] Comment on above: Performed By: #### U NICHOLE 24 #### [facility] [address] [address] [address] Lizzette Braga PDF . Normal [facility] Comment on above: Performed By: #### U NICHOLE 24 #### [facility] [address] [address] [address] Lizzette Braga Photo Comment [facility] Comment on above: Result Comment: Phot ograph will follow under a separate cover Performed By: #### U NICHOLE 24 #### [facility] [address] [place] [address] Dr. Lizzette Braga Please note: Comment [facility] Comment on above: Result Comment: Calc romelia report will follow via computer, mail or hookman delivery. Performed By: #### U NICHOLE 24 #### [facility] [address] [place] [address] Dr. Lizzette Braga Size 3x3 [facility] Comment on above: Result Comment: Mult iple pieces received. Dimensions of the largest piece reported. Performed By: #### U NICHOLE 24 #### [facility] [address] [place] [address] Dr. Lizzette Braga Sodium Acid Urate Normal [facility] Comment on above: Performed By: #### U NICHOLE 24 #### [facility] [address] [address] [address] Lizzette Braga Source Comment [facility] Comment on above: Result Comment: Not provided Performed By: #### U NICHOLE 24 #### [facility] [address] [address] [address] Lizzette Braga Triamterene [facility] Comment on above: Performed By: #### U NICHOLE 24 #### [facility] [address] [place] [address] Dr. Lizzette Braga Uric Acid [facility] Comment on above: Performed By: #### U NICHOLE 24 #### [facility] [address] [address] [address] Lizzette Braga Uric Acid Dihydrate Normal [facility] Comment on above: Performed By: #### U NICHOLE 24 #### [facility] [address] [address] [address] Lizzette Braga Weight 84 mg Normal [facility] Comment on above: Performed By: #### U NICHOLE 24 #### [facility] [address] [address] [address] Lizzette Braga Xanthine Normal [facility] Comment on above: Performed By: #### U NICHOLE 24 #### [facility] [address] [address] [address] Lizzette Braga XR KUB 1 VIEWon 2021 XR KUB 1 VIEW EXAMINATION: XR KUB 1 VIEW HISTORY: Urolithiasis ; left kidney stone COMPARISON: XR KUB 03/14/2021 FINDINGS: KIDNEY/URETER - RIGHT: A few small stones project over the right kidney. KIDNEY/URETER - LEFT: 7 mm stone versus collection of stones projecting over left kidney. PELVIS: No convincing ureteral stones. Pelvic calcifications favor phleboliths and atherosclerotic plaque. BOWEL: No abnormal dilation. Large amount of stool within colon. BONES: No acute abnormality. OTHER: Negative. No abnormal gaseous collections. IMPRESSION: 1. Bilateral nephrolithiasis, not significantly changed. Electronically authenticated by: ISRRAEL COOPER Date: 2021 07:38 Normal [facility] XR KUBon 02-27-2021 XR KUB [facility] [place] [address] [place] [address] XRay Report Signed Patient: Jo-Ann Roberts MR#: [id number] : 1960 Acct:[id number] Age/Sex: 60 / F ADM Date: 02/27/21 Loc: MD Room: Type: [facility] Attending Dr: Adrina Oneal Jr, MD Ordering Provider: Adrian Oneal Jr, MD, FACS Date of Service: 02/27/21 XR/XR KUB: Ureteral Stone, Kidney stone Copies to: Adrian Oneal Jr, MD, FACS XR KUB 02/27/2021 1:44 PM SIGNS AND SYMPTOMS: Microscopic hematuria, left-sided lithotripsyscheduled , left ureteral stone. PROTOCOL: Frontal radiograph of the abdomen COMPARISON: None FINDINGS: There is a dextro convex curvature of the lumbar spine. There is a radiodense stone adjacent to the left L4 transverse process measuring 11 mm in greatest dimension. Vascular consultation is are present in the pelvis. XR/XR KUB IMPRESSION: There is a radiodense stone adjacent to the left L4 transverse process measuring 11 mm. Impression dictated by: Eric White M.D.02/27/2021 2:07 PM Dictation Location: [facility]- Transcribed By: SANTIAGO 02/27/211406 Dictated By: Eric White II, MD 02/27/211405 Signed By: 02/27/211406 Normal [facility] COVID-19 FRon 02-25-2021 SARS-CoV-2 (COVID-19) RNA TREVOR+probe Ql (Unsp spec) Negative Normal Negative [facility] Comment on above: Order Comment: Healt hcare Worker?: N Result Comment: Testing for SARS-CoV-2 by RT-PCR This test was developed and its performance characteristics determined by [facility], [employer]) and validated at the [facility]. This test has not been FDA cleared or approved. This test has been authorized by FDA under an Emergency Use Authorization (EUA). This test has been validated in accordance with the FDA's Guidance Document (Policy for Diagnostics Testing in Laboratories Certified to Perform High Complexity Testing under CLIA prior to Emergency Use Authorization for Coronavirus Disease-2019 during the Public Health Emergency) issued on December 08, 2019. This test is only authorized for the duration of time the declaration that circumstances exist justifying the authorization of the emergency use of in vitro diagnostic tests for detection of SARS-CoV-2 virus and/or diagnosis of COVID-19 infection under section 564(b)(1) of the Act, 21 U.S.C. 360bbb-3(b)(1), unless the authorization is terminated or revoked sooner. PERFORMED BY: [place] [address] [place] [address] PATHOLOGIST SPECIALTIES OPERATOR DARIA JAQUEZ M.D. Performed By: #### C OVID 19 [facility] #### [facility] [address] COVID-19 Positive/Negativeon 02-25-2021 SARS-CoV-2 (COVID-19) N gene TREVOR+probe Ql (Resp) Negative Negative [facility] Comment on above: Testing for SARS-CoV -2 by RT-PCRThis test was developed and its performance characteristics determined by [facility], [employer] ([employer]) and validated at the [facility]. This test has not been FDA cleared or approved. This test has been authorized by FDA under an Emergency Use Authorization (EUA). This test has been validated in accordance with the FDA's Guidance Document (Policy for Diagnostics Testing in Laboratories Certified to Perform High Complexity Testing under CLIA prior to Emergency Use Authorization for Coronavirus Disease-2019 during the Public Health Emergency) issued on December 08, 2019. This test is only authorized for the duration of time the declaration that circumstances exist justifying the authorization of the emergency use of in vitro diagnostic tests for detection of SARS-CoV-2 virus and/or diagnosis of COVID-19 infection under section 564(b)(1) of the Act, 21 U.S.C. 360bbb-3(b)(1), unless the authorization is terminated or revoked sooner. Basic Metabolic Panelon 02-05 Calcium [Mass/Vol] 9.5 mg/dL Normal 8.2-10.2 [facility] Comment on above: Result Comment: PERF ORMED BY: [facility] [address] [place] [address] PATHOLOGIST SPECIALTIES OPERATOR DARIA JAQUEZ M.D. Performed By: #### B MP, CBC #### [facility] [address] [place] [address] [place] Chloride [Moles/Vol] 100 mmol/L Normal 95-[address] [facility] Comment on above: Performed By: #### B MP, CBC #### [facility] [address] [place] [id number] [place] CO2 [Moles/Vol] 24.7 mmol/L Normal 22.0-30.0 [facility] Comment on above: Performed By: #### B MP, CBC #### [facility] [address] Creatinine [Mass/Vol] 0.89 mg/dL Normal 0.44-1.03 [facility] Comment on above: Performed By: #### B MP, CBC #### [address] Estimated GFR ( Lori > 60 Normal [facility] Comment on above: Result Comment: GFR estimated reference range: According to KDOQI guidelines, <60 ml/min/1.73m2 is sufficient to diagnose a patient with chronic kidney disease. Performed By: #### B MP, CBC #### [facility] [address] Estimated GFR (Non- Am > 60 Normal [facility] Comment on above: Performed By: #### B MP, CBC #### [address] Glucose [Mass/Vol] 93 mg/dL Normal 70-100 [facility] Comment on above: Result Comment: [place] om Glucose Reference Range is dependent on time and content of last meal. Glucose of more than 200 mg/dL in a nonstressed, ambulatory subject supports the diagnosis of Diabetes Mellitus. ADA recommended reference range Performed By: #### B MP, CBC #### [place] [address] [place] Potassium [Moles/Vol] 4.2 mmol/L Normal 3.5-5.1 [facility] Comment on above: Performed By: #### B MP, CBC #### [facility] [address] [place] [id number] [place] Sodium [Moles/Vol] 139 mmol/L Normal 136-146 [facility] Comment on above: Performed By: #### B MP, CBC #### [address] Urea nitrogen [Mass/Vol] 20 mg/dL Normal 9-23 [facility] Comment on above: Performed By: #### B MP, CBC #### [facility] [address] [place] [address] [place] Basophils Auto (Bld) [#/Vol] on 02-14-2021 Basophils (Bld) [#/Vol] 0.0 10*3/uL 0.0-0.2 [facility] Basophils/100 WBC Auto (Bld) on 02-14-2021 Basophils/100 WBC (Bld) 0.5 % [facility] Blood hemoglobin measurement (mass/volume)on 02-14-2021 Hemoglobin (Bld) [Mass/Vol] 14.3 g/dL 11.8-15.4 [facility] Blood leukocytes automated c ount (number/volume)on 02-14-2021 WBC (Bld) [#/Vol] 5.0 10*3/uL 4.5-11.0 [facility] Complete Blood Count Auto Di ffon 02-14-2021 Basophils (Bld) [#/Vol] 0.0 10*3/uL Normal 0.0-0.2 [facility] Comment on above: Result Comment: PERF ORMED BY: [place] [address] PATHOLOGIST SPECIALTIES OPERATOR DARIA JAQUEZ M.D. Performed By: #### B MP, CBC #### [address] Basophils/100 WBC (Bld) 0.5 % Normal . [facility] Comment on above: Performed By: #### B MP, CBC #### [place] [address] [place] Eosinophils (Bld) [#/Vol] 0.1 10*3/uL Normal 0.0-0.45 [facility] Comment on above: Performed By: #### B MP, CBC #### [place] [address] [place] Eosinophils/100 WBC (Bld) 1.3 % Normal . [facility] Comment on above: Performed By: #### B MP, CBC #### [place] [address] [place] Erythrocyte distribution width (RBC) [Ratio] 12.8 % Normal 11.9-15.3 [facility] Comment on above: Performed By: #### B MP, CBC #### [address] Hematocrit (Bld) [Volume fraction] 42.9 % Normal 34.0-46.4 [facility] Comment on above: Performed By: #### B MP, CBC #### [address] Hemoglobin (Bld) [Mass/Vol] 14.3 g/dL Normal 11.8-15.4 [facility] Comment on above: Performed By: #### B MP, CBC #### [address] Lymphocytes (Bld) [#/Vol] 1.0 10*3/uL Normal 1.00-4.8 [facility] Comment on above: Performed By: #### B MP, CBC #### [address] Lymphocytes/100 WBC (Bld) 19.9 % Normal . [facility] Comment on above: Performed By: #### B MP, CBC #### [address] MCH (RBC) [Entitic mass] 31.1 pg Normal 24.7-34.3 [facility] Comment on above: Performed By: #### B MP, CBC #### [address] MCV (RBC) [Entitic vol] 93.0 fL Normal 80-100 [facility] Comment on above: Performed By: #### B MP, CBC #### [address] Mean Corpuscular HGB Conc 33.5 g/dL Normal 32.0-35.0 [facility] Comment on above: Performed By: #### B MP, CBC #### [address] Monocytes (Bld) [#/Vol] 0.4 10*3/uL Normal 0.0-0.8 [facility] Comment on above: Performed By: #### B MP, CBC #### [facility] [address] [place] [address] [place] Monocytes/100 WBC (Bld) 7.1 % Normal . [facility] Comment on above: Performed By: #### B MP, CBC #### [facility] [address] [place] [address] [place] Neutrophils (Bld) [#/Vol] 3.6 10*3/uL Normal 1.8-7.7 [facility] Comment on above: Performed By: #### B MP, CBC #### [facility] [address] Neutrophils/100 WBC (Bld) 71.2 % Normal . [facility] Comment on above: Performed By: #### B MP, CBC #### [facility] [address] [place] [address] [place] Nucleated RBC/100 WBC (Bld) [Ratio] 0.3 % Normal 0-0.5 [facility] Comment on above: Performed By: #### B MP, CBC #### [facility] [address] [place] [address] [place] Platelet mean volume (Bld) [Entitic vol] 10.2 fL Normal 6.3-10.7 [facility] Comment on above: Performed By: #### B MP, CBC #### [facility] [address] [place] [address] [place] Platelets (Bld) [#/Vol] 198 10*3/uL Normal 150-450 [facility] Comment on above: Performed By: #### B MP, CBC #### [facility] [address] [place] [address] [place] RBC (Bld) [#/Vol] 4.61 10*6/uL Normal 3.60-5.00 [facility] Comment on above: Performed By: #### B MP, CBC #### [facility] [address] [place] [address] [place] WBC (Bld) [#/Vol] 5.0 10*3/uL Normal 4.5-11.0 [facility] Comment on above: Performed By: #### B MP, CBC #### [address] Creatinine and Glomerular fi ltration rate.predicted panel (S/P/Bld)on 02-14-2021 Creatinine [Mass/Vol] 0.89 mg/dL 0.44-1.03 [facility] ECG 12 lead ECGon 02-14-2021 ECG 12 lead ECG [facility] [place] [address] [place] [address] Electrocardiograph Report Signed Patient: Jo-Ann Roberts MR#: [id number] : [id number] Acct:[id number] Age/Sex: 60 / F ADM Date: 02/14/21 Loc: Room: Type: [facility] Attending Dr: Adrian Oneal Jr, MD Ordering Provider: Adrian Oneal Jr, MD, [facility] Date of Service: 02/14/21 ECG/ECG 12 lead ECG: PST urology surgery Copies to: Test Reason : Blood Pressure : / mmHG Vent. Rate : 067 BPM Atrial Rate : 067 BPM P-R Int : 096 ms QRS Dur : 102 ms QT Int : 392 ms P-R-T Axes : 106 076 074 degrees QTc Int : 414 ms Sinus rhythm with short [place] Otherwise normal ECG When compared with ECG of 07-NOV-2019 14:31, No significant change was found Confirmed by RALEIGH VOGEL MD ([id number]) on 02/14/2021 9:41:34 PM Referred By: LUIS ENRIQUE Electronically Signed By:RALEIGH VOGEL MD Transcribed By: AZEB Dictated By: Raleigh Vogel MD 02/14/21 1029 Signed By: 02/14/21 5977 Normal [facility] Eosinophils Auto (Bld) [#/Vo l]on 02-14-2021 Eosinophils (Bld) [#/Vol] 0.1 10*3/uL 0.0-0.45 [facility] Eosinophils/100 WBC Auto (Bl d)on 02-14-2021 Eosinophils/100 WBC (Bld) 1.3 % [facility] Erythrocyte distribution wid th Auto (RBC) [Ratio]on 02-14-2021 Erythrocyte distribution width (RBC) [Ratio] 12.8 % 11.9-15.3 [facility] Estimated glomerular filtrat ion rate (GFR) non- Americanon 02-14-2021 GFR/1.73 sq M.predicted among non-blacks MDRD (S/P/Bld) [Vol rate/Area] > 60 mL/Min [facility] Hematocrit Auto (Bld) [Volum e fraction]on 02-14-2021 Hematocrit (Bld) [Volume fraction] 42.9 % 34.0-46.4 [facility] Laboratory - Hematology and Cell countson 02-14-2021 Nucleated RBC/100 WBC (Bld) [Ratio] 0.3 % 0-0.5 [facility] Lymphocytes Auto (Bld) [#/Vo l]on 02-14-2021 Lymphocytes (Bld) [#/Vol] 1.0 10*3/uL 1.00-4.8 [facility] Lymphocytes/100 WBC Auto (Bl d)on 02-14-2021 Lymphocytes/100 WBC (Bld) 19.9 % [facility] MCH Auto (RBC) [Entitic mass ]on 02-14-2021 MCH (RBC) [Entitic mass] 31.1 pg 24.7-34.3 [facility] MCHC Auto (RBC) [Mass/Vol]on 02-14-2021 MCHC (RBC) [Mass/Vol] 33.5 g/dL 32.0-35.0 [facility] MCV Auto (RBC) [Entitic vol] on 02-14-2021 MCV (RBC) [Entitic vol] 93.0 fL 80-100 [facility] Monocytes Auto (Bld) [#/Vol] on 02-14-2021 Monocytes (Bld) [#/Vol] 0.4 10*3/uL 0.0-0.8 [facility] Monocytes/100 WBC Auto (Bld) on 02-14-2021 Monocytes/100 WBC (Bld) 7.1 % [facility] Neutrophils Auto (Bld) [#/Vo l]on 02-14-2021 Neutrophils (Bld) [#/Vol] 3.6 10*3/uL 1.8-7.7 [facility] Neutrophils/100 WBC Auto (Bl d)on 02-14-2021 Neutrophils/100 WBC (Bld) 71.2 % [facility] No Panel Informationon 02-14 Estimated GFR () > 60 mL/Min [facility] Comment on above: GFR estimated refere nce range: According to KDOQI guidelines, <60 ml/min/1.73m2 is sufficient to diagnose a patient with chronic kidney disease. Pharmacy Creatinine Clearance (Chem N/A [facility] Platelet mean volume Auto (B ld) [Entitic vol]on 02-14-2021 Platelet mean volume (Bld) [Entitic vol] 10.2 fL 6.3-10.7 [facility] Platelets Auto (Bld) [#/Vol] on 02-14-2021 Platelets (Bld) [#/Vol] 198 10*3/uL 150-450 [facility] RBC Auto (Bld) [#/Vol]on RBC (Bld) [#/Vol] 4.61 10*6/uL 3.60-5.00 [facility] Serum or plasma calcium macario urement (mass/volume)on 02-14-2021 Calcium [Mass/Vol] 9.5 mg/dL 8.2-10.2 [facility] Serum or plasma chloride tylor surement (moles/volume)on 02-14-2021 Chloride [Moles/Vol] 100 mmol/L 95-114 [facility] Serum or plasma glucose macario urement (mass/volume)on 02-14-2021 Glucose [Mass/Vol] 93 mg/dL 70-100 [facility] Comment on above: ADA recommended refe rence rangeRandom Glucose Reference Range is dependent on time and content of last meal. Glucose of more than 200 mg/dL in a nonstressed, ambulatory subject supports the diagnosis of Diabetes Mellitus. Serum or plasma potassium me asurement (moles/volume)on 02-14-2021 Potassium [Moles/Vol] 4.2 mmol/L 3.5-5.1 [facility] Serum or plasma sodium measu rement (moles/volume)on 02-14-2021 Sodium [Moles/Vol] 139 mmol/L 136-146 [facility] Serum or plasma total carbon dioxide measurement (moles/volume)on 02-14-2021 CO2 [Moles/Vol] 24.7 mmol/L 22.0-30.0 [facility] Serum or plasma urea nitroge n measurement (mass/volume)on 02-14-2021 Urea nitrogen [Mass/Vol] 20 mg/dL 05-30 [facility] Vital Signs Date Time Vital Sign Value Performing Clinician Facility 02-29-2024 11:18-0400 Blood Pressure Location Wu VELEZ [facility] 02-29-2024 11:18-0400 Body temperature 98.6 [degF] Wu VELEZ [facility] 02-29-2024 11:18-0400 Diastolic blood pressure 84 mm[Hg] Wu VELEZ [facility] 02-29-2024 11:18-0400 Heart rate 69 /min Wu VELEZ [facility] 02-29-2024 11:18-0400 Respiratory rate 16 /min Wu VELEZ [facility] 02-29-2024 11:18-0400 Systolic blood pressure 124 mm[Hg] [facility] 07-16-2023 14:59-0500 Body height 165.1 cm Nan Sarabia MD Work Phone: [facility] 07-16-2023 14:59-0500 Body temperature 97.5 [degF] Nan Sarabia MD Work Phone: [facility] 07-16-2023 14:59-0500 Body weight 58.15 kg Nan Sarabia MD Work Phone: [facility] 07-16-2023 14:59-0500 Diastolic blood pressure 70 mm[Hg] Nan Sarabia MD Work Phone: [facility] 07-16-2023 14:59-0500 Heart rate 80 /min Nan Sarabia MD Work Phone: [facility] 07-16-2023 14:59-0500 Respiratory rate 16 /min Nan Sarabia MD Work Phone: [facility] 07-16-2023 14:59-0500 SaO2% (BldA) [Mass fraction] 100 % Nan Sarabia MD Work Phone: [facility] 07-16-2023 14:59-0500 Systolic blood pressure 159 mm[Hg] Nan Sarabia MD Work Phone: [facility] 06-19-2023 14:45-0400 Body height 161.29 cm Juma Ball Other [facility] Other 06-19-2023 14:45-0400 Body mass index (BMI) [Ratio] 22.14 kg/m2 Juma Ball Other [facility] Other 06-19-2023 14:45-0400 Body weight 57.61 kg Juma Ball Other [facility] Other 06-19-2023 14:45-0400 Diastolic blood pressure 79 mm[Hg] Juma Ball Other [facility] Other 06-19-2023 14:45-0400 Respiratory rate 12 /min Juma Ball Other [facility] Other 06-19-2023 14:45-0400 Systolic blood pressure 156 mm[Hg] Juma Ball Other [facility] Other 10-28-2022 16:30-0500 Body height 161.29 cm Karina Carlson Other [facility] Other 10-28-2022 16:30-0500 Body mass index (BMI) [Ratio] 21.97 kg/m2 Karina Carlson Other [facility] Other 10-28-2022 16:30-0500 Body temperature 97.3 [degF] Karina Carlson Other [facility] Other 10-28-2022 16:30-0500 Body weight 57.15 kg Karina Carlson Other [facility] Other 10-28-2022 16:30-0500 Respiratory rate 19 /min Karina Carlson Other [facility] Other 10-28-2022 16:30-0500 SaO2% (BldA) [Mass fraction] Karina Carlson Other [facility] Other 08-06-2022 15:15-0500 Blood Pressure Location [facility] 08-06-2022 15:15-0500 Diastolic blood pressure 80 mm[Hg] [facility] 08-06-2022 15:15-0500 Heart rate 72 /min Wu VELE[facility] 08-06-2022 15:15-0500 Systolic blood pressure 141 mm[Hg] Wu VELEZ [facility] 06-16-2022 15:31-0400 Body height 165.1 cm Nan Sarabia MD Work Phone: [facility] 06-16-2022 15:31-0400 Body temperature 97.39 [degF] Nan Sarabia MD Work Phone: [facility] 06-16-2022 15:31-0400 Body weight 55.97 kg Nan Sarabia MD Work Phone: [facility] 06-16-2022 15:31-0400 Diastolic blood pressure 67 mm[Hg] Nan Sarabia MD Work Phone: [facility] 06-16-2022 15:31-0400 Heart rate 82 /min Nan Sarabia MD Work Phone: [facility] 06-16-2022 15:31-0400 Respiratory rate 16 /min Nan Sarabia MD Work Phone: [facility] 06-16-2022 15:31-0400 SaO2% (BldA) [Mass fraction] 99 % Nan Sarabia MD Work Phone: [facility] 06-16-2022 15:31-0400 Systolic blood pressure 147 mm[Hg] Nan Sarabia MD Work Phone: [facility] 03-12-2022 10:42-0400 Blood Pressure Location Wu VELEZ [facility] 03-12-2022 10:42-0400 Diastolic blood pressure 89 mm[Hg] Wu VELEZ [facility] 03-12-2022 10:42-0400 Heart rate 85 /min Wu VELEZ [facility] 03-12-2022 10:42-0400 Respiratory rate 16 /min Wu VELEZ [facility] 03-12-2022 10:42-0400 Systolic blood pressure 139 mm[Hg] [facility] Candido Encounters Encounter Date Encounter Type Care Provider Facility Start: 03-03-2025 ambulatory Wu VELEZ Facili ty:[facility] Start: 04-14-2024 ambulatory Wu VELEZ Facili ty:[id number] Start: 02-29-2024 End: 02-29-2024 ambulatory Wu VELEZ Facility:[facility] Start: 02-29-2024 End: 02-29-2024 Patient encounter procedure [facility] Start: 07-17-2023 End: 07-17-2023 ambulatory Juma Buckner Other [facility] Other Start: 07-17-2023 Telephone encounter Juma Buckner [facility] Start: 07-16-2023 End: 07-17-2023 [facility] Start: 07-16-2023 End: 07-16-2023 ambulatory Nan Sarabia MD Work Phone: Hematology/Oncology Comment on above: Malignant neoplasm o f upper-outer quadrant of right breast in female, estrogen receptor positive (HCC) (Primary Dx); Age-related osteoporosis without current pathological fracture Start: 07-16-2023 End: 07-16-2023 Patient encounter procedure Nan Sarabia MD Work Phone: [facility] Start: 06-19-2023 End: 06-19-2023 ambulatory Juma Buckner Other [facility] Other Start: 06-19-2023 Encounter for genera l adult medical examination without abnormal findings Juma Buckner [facility] Start: 06-19-2023 Periodic preventive med est patient 40-64yrs Juma Buckner [facility] Start: 04-27-2023 Telephone encounter 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 Comment on above: Orders Start: 10-28-2022 End: 10-28-2022 ambulatory Karina Aldo Other [facility] Other Start: 10-28-2022 Office outpatient ne w 20 minutes Karina Aldo [facility] Start: 08-06-2022 End: 08-06-2022 Patient encounter procedure Wu VELEZ [facility] Start: 06-16-2022 End: 06-16-2022 ambulatory Nan Sarabia MD Work Phone: Hematology/Oncology Comment on above: Malignant neoplasm o f upper-outer quadrant of right breast in female, estrogen receptor positive (HCC) (Primary Dx); Age-related osteoporosis without current pathological fracture Start: 06-16-2022 End: 06-16-2022 Patient encounter procedure Nan Sarabia MD Work Phone: [facility] Start: 04-01-2022 End: 04-01-[address] WU VELEZ Facility:[facility] Start: 03-31-2022 End: 04-01-[address] WU VELEZ Facility:[facility] Start: 03-12-2022 End: 03-12-2022 Patient encounter procedure Wu VELEZ [facility] Start: 02-27-2022 End: 02-28-[address] JUMA BUCKNER Facility:[facility] Start: 01-27-2022 Refill yRan Daniels APRN.CNP Work Phone: Hematology/Oncology Comment on above: Refill Request Start: 04-26-2021 End: 04-26-[address] WU VELEZ Facility:[facility] Start: 2021 End: [address] WU VELEZ Facility:[facility] Start: 02-25-2021 End: 02-25-2021 Patient encounter procedure Adrian Oneal Jr Work Phone: -Pre-Surgical Testing Start: 02-14-2021 End: 02-14-2021 Patient encounter procedure Adrian Oneal Jr Work Phone: -Pre-Surgical Testing Procedures Date Procedure Procedure Detail Performing Clinician Start: 05-02-2022 Mammography Dipti shearer RN Start: 06-17-2021 Adult depression scr eening assessment Ryan Daniels SCREEN PRINTING PRESS OPERATOR.CONVEYOR LINE BAKERY WORKER Work Phone: Start: 04-30-2021 Mammography Ryan ledesma SCREEN PRINTING PRESS OPERATOR.CONVEYOR LINE BAKERY WORKER Work Phone: Start: 2021 Extracorporeal shock wave lithotripsy of calculus of kidney Wu VELEZ Start: 11-07-2019 Cystoscopy Wu MATHEWS Appendectomy Wu VELEZ Breast structure (cele dy structure) Wu VELEZ Tonsillectomy Wu VELEZ Plan of Treatment Date Care Activity Detail Author Start: 06-17-2024 DIABETES SCREEN DIABETES SCREEN [facility] Start: 06-17-2024 Diabetes Screening Diabetes Screenin g [facility] Start: 05-04-2024 Mammography Mammogram Screening [facility] Start: 05-08-2023 Influenza vaccination C [facility] Start: 05-02-2023 Mammography MAMMOGRAM [facility] Start: 09-07-2022 DEPRESSION ASSESSMENT DEPRESSION ASS [facility] Start: 06-17-2022 Adult depression screening assessment DEPRESSION SCREENING [facility] Start: 05-08-2022 Influenza vaccination C [facility] Start: 04-30-2022 Mammography MAMMOGRAM [facility] Start: 09-07-2021 [facility] Start: 2020 RSV Vaccine (1 - 1-d ose 60+ series) RSV Vaccine (1 - 1-dose 60+ series) [facility] Start: 2010 SHINGRIX VACCINE (1 of 2) SHINGRIX VACCINE (1 of 2) [facility] Start: 2005 COLOGUARD (FIT-DNA) COLOGUARD (FIT-D NA) [facility] Start: 2005 Colonoscopy COLONOSCOPY [facility] Start: 2005 COLORECTAL CANCER SCREENING COLORECTAL CANCER SCREENING [facility] Start: [address] COLONOGRAPHY [facility] Start: 2005 FECAL OCCULT BLOOD FECAL OCCULT BLOO D [facility] Start: 2005 Lipid 1996 panel - S gisell or Plasma Lipid Screening [facility] Start: 2005 LIPID SCREEN LIPID SCREEN [facility] Start: 2005 SIGMOIDOSCOPY SIGMOIDOSCOPY [facility] Start: 1990 HPV TESTING HPV TESTING [facility] Start: 1981 PAP TESTING PAP TESTING [facility] Start: 1979 Urine microalbumin profile [facility] Start: 1978 HEPATITIS C SCREENING HEPATITIS C SC REENING [facility] Start: 1978 HIV SCREENING HIV SCREENING [facility] Start: 1966 PNEUMOCOCCAL (1 - PCV) PNEUMOCOCCAL (1 - PCV) [facility] Start: 1965 COVID-19 VACCINE (#1) COVID-19 VACCI NE (#1) [facility] Start: 1960 COVID-19 VACCINE (#1) COVID-19 VACCI NE (#1) [facility] End: 07-16-2023 Diagnostic mammography computer-aided detcj bi [facility] DI[facility]NOST[facility]AT Radiology Routine Malignant neoplasm of upper-outer quadrant of right breast in female, estrogen receptor positive (HCC) 1 Occurrences starting 06/16/2022 until 07/16/2023 [facility] Work Phone: Comment on above: 1 Occurrences starti ng 06/16/2022 until 07/16/2023 End: 08-14-2024 DXA-FOREARM SKELETON DXA-FOREARM SKELETON Radiology Routine Age-related osteoporosis without current pathological fracture Malignant neoplasm of upper-outer quadrant of right breast in female, estrogen receptor positive (HCC) 1 Occurrences starting 07/16/2023 until 08/14/2024 [facility] Work Phone: Comment on above: 1 Occurrences starti ng 07/16/2023 until 08/14/2024 End: 05-26-2024 MEMO SCREENING MEMO SCREENING Radiology Routine Encounter for screening mammogram for malignant neoplasm of breast 1 Occurrences starting 04/27/2023 until 05/26/2024 [facility] Work Phone: Comment on above: 1 Occurrences starti ng 04/27/2023 until 05/26/2024 End: 08-14-2024 MEMO SCREENING W FAISAL MEMO SCREENING W FAISAL Radiology Routine Age-related osteoporosis without current pathological fracture Malignant neoplasm of upper-outer quadrant of right breast in female, estrogen receptor positive (HCC) 1 Occurrences starting 07/16/2023 until 08/14/2024 [facility] Work Phone: Comment on above: 1 Occurrences starti ng 07/16/2023 until 08/14/2024 [facility] Payers Date Payer Category Payer Unknown [id number] 2012 Unknown MMO MMO [employer] [id number] 2012-Present [phone] [address] [place] [address] PPO [id number] 1960 Unknown [id number] 1960 Unknown [id number] 1960 Unknown [id number] 1960 Unknown [id number] 1960 Unknown [id number] 1960 Unknown [id number] 1960 Unknown [id number] 1959 Unknown [id number] Self-pay Self Pay [id number] Social History Date Type Detail Facility Start: 02-14-2021 End: 02-29-2024 Tobacco smoking status NHIS Never smoked tobacco (finding) [facility] Start: 1960 Sex Assigned At Female F [facility] Start: 04-25-2014 Tobacco use and exposure Smokeless tobacco non-user [facility] Start: 06-17-2021 End: 06-16-2022 Alcohol intake Current non-drinker of alcohol (finding) [facility] Start: 1960 Sex Assigned At Not on file C [facility] Start: 06-16-2022 End: 07-16-2023 Sex Assigned At Female [facility] Start: 06-06-2022 End: 06-16-2022 Exposure to SARS-CoV-2 (event) Not sure [facility] Tobacco smoking status Never [facility] Start: 06-16-2022 End: 07-16-2023 History of Social function [facility] Functional Status Date Assessment Result Facility 02-29-2024 Functional Status N/A [facility] 08-06-2022 Functional Status N/A [facility] 03-12-2022 Functional Status N/A [facility] Clinical Notes 09-02-2012 to 02-29-2024 Note Date & Type Note Facility 02-29-2024 Hospital Discharg e instructions Patient Education 02/29/2024 11:52:33 Dietary Guidelines to Help Prevent Kidney Stones Dietary Guidelines to Help Prevent Kidney Stones Kidney stones are deposits of minerals and salts that form inside your kidneys. Your risk of developing kidney stones may be greater depending on your diet, your lifestyle, the medicines you take, and whether you have certain medical conditions. Most people can lower their risks of developing kidney stones by following these dietary guidelines. Your dietitian may give you more specific instructions depending on your overall health and the type of kidney stones you tend to develop. What are tips for following this plan? Reading food labels Choose foods with no salt added or low-salt labels. Limit your salt (sodium) intake to less than 1,500 mg a day. Choose foods with calcium for each meal and snack. Try to eat about 300 mg of calcium at each meal. Foods that contain 200 500 mg of calcium a serving include: ?8 oz (237 mL) of milk, xjlkcfo-peoeftbbiagq-cxjav milk, and calcium-fortifiedfruit juice. Calcium-fortified means that calcium has been added to these drinks. ?8 oz (237 mL) of kefir, yogurt, and soy yogurt. ?4 oz (114 g) of tofu. ?1 oz (28 g) of cheese. ?1 cup (150 g) of dried figs. ?1 cup (91 g) of cooked broccoli. ?One 3 oz (85 g) can of sardines or mackerel. Most people need 1,000 1,500 mg of calcium a day. Talk to your dietitian about how much calcium is recommended for you. Shopping Buy plenty of fresh fruits and vegetables. Most people do not need to avoid fruits and vegetables, even if these foods contain nutrients that may contribute to kidney stones. When shopping for convenience foods, choose: ?Whole pieces of fruit. ?Pre-made salads with dressing on the side. ?Low-fat fruit and yogurt smoothies. Avoid buying frozen meals or prepared deli foods. These can be high in sodium. Look for foods with live cultures, such as yogurt and kefir. Choose high-fiber grains, such as whole-wheat breads, oat bran, and wheat cereals. Cooking Do not add salt to food when cooking. Place a salt shaker on the table and allow each person to add their own salt to taste. Use vegetable protein, such as beans, textured vegetable protein (TVP), or tofu, instead of meat in pasta, casseroles, and soups. Meal planning Eat less salt, if told by your dietitian. To do this: ?Avoid eating processed or pre-made food. ?Avoid eating fast food. Eat less animal protein, including cheese, meat, poultry, or fish, if told by your dietitian. To do this: ?Limit the number of times you have meat, poultry, fish, or cheese each week. Eat a diet free of meat at least 2 days a week. ?Eat only one serving each day of meat, poultry, fish, or seafood. ?When you prepare animal proteins, cut pieces into small portion sizes. For most meat and fish, one serving is about the size of the palm of your hand. Eat at least five servings of fresh fruits and vegetables each day. To do this: ?Keep fruits and vegetables on hand for snacks. ?Eat one piece of fruit or a handful of berries with breakfast. ?Have a salad and fruit at lunch. ?Have two kinds of vegetables at dinner. You may be told to limit foods that are high in a substance called oxalate. These include: ?Spinach (cooked), rhubarb, beets, sweet potatoes, and [place]i chard. ?Peanuts. ?Potato chips, tongan fries, and baked potatoes with skin on. ?Nuts and nut products. ?Chocolate. If you regularly take a diuretic medicine, make sure to eat at least 1 or 2 servings of fruits or vegetables that are high in potassium each day. These include: ?Avocado. ?Banana. ?[place], prune, carrot, or tomato juice. ?Baked potato. ?Cabbage. ?Beans and split peas. Lifestyle Drink enough fluid to keep your urine pale yellow. This is the most important thing you can do. Spread your fluid intake throughout the day. If you drink alcohol: ?Limit how much you have to: ?0 1 drink a day for women who are not . ?0 2 drinks a day for men. ?Know how much alcohol is in your drink. In the [place] one drink equals one 12 oz bottle of beer (355 mL), one 5 oz glass of wine (148 mL), or one 1 oz glass of hard liquor (44 mL). Lose weight if told by your health care provider. Work with your dietitian to find an eating plan and weight loss strategies that work best for you. General information Talk to your health care provider and dietitian about taking daily supplements. Depending on your health and the cause of your kidney stones, you may be told: ?Do not take high-dose supplements of vitamin C (1,000 mg a day or more). ?To take a calcium supplement. ?To take a daily probiotic supplement. ?To take other supplements such as magnesium, fish oil, or vitamin B6. Take ewlr-dcy-vypucdq and prescription medicines only as told by your health care provider. These include supplements. What foods should I limit? Limit your intake of the following foods, or eat them as told by your dietitian. Vegetables Spinach. Rhubarb. Beets. Canned vegetables. Pickles. Olives. Baked potatoes with skin. Grains Wheat bran. Baked goods. Salted crackers. Cereals high in sugar. Meats and other proteins Nuts. Nut butters. Large portions of meat, poultry, or fish. Salted, precooked, or cured meats, such as sausages, meat loaves, and hot dogs. Dairy Cheeses. Beverages Regular soft drinks. Regular vegetable juice. Seasonings and condiments Seasoning blends with salt. Salad dressings. Soy sauce. Ketchup. Barbecue sauce. Other foods Canned soups. Canned pasta sauce. Casseroles. Pizza. Lasagna. Frozen meals. Potato chips. Haitian fries. The items listed above may not be a complete list of foods and beverages you should limit. Contact a dietitian for more information. What foods should I avoid? Talk to your dietitian about specific foods you should avoid based on the type of kidney stones you have and your overall health. Fruits Grapefruit. The item listed above may not be a complete list of foods and beverages you should avoid. Contact a dietitian for more information. Summary Kidney stones are deposits of minerals and salts that form inside your kidneys. You can lower your risk of kidney stones by making changes to your diet. The most important thing you can do is drink enough fluid. Drink enough fluid to keep your urine pale yellow. Talk to your dietitian about how much calcium you should have each day, and eat less salt and animal protein as told by your dietitian. This information is not intended to replace advice given to you by your health care provider. Make sure you discuss any questions you have with your health care provider. Document Revised: 12/04/2022 Document Reviewed: 12/04/2022 [employer] Patient Education 2022 [employer]. Follow Up Care 08/06/2022 16:16:25 With:PATRICIA STRICKLAND, TIM Herbert Address: [facility] [address] [place] [address]- [phone] When: Unknown Comments:1 yr w/ KUB [facility] 07-17-2023 Evaluation note Encounter Date Diagnosis Assessment Notes Jul, Malignant neoplasm of upper-outer quadrant of right female breast (ICD-10 - C50.411) Lumpectomy 2011, adjuvent chemotherapy, adjuvent radiation therapy, completed 9 years hormone therapy Jul, Estrogen receptor positive status [ER+] (ICD-10 - Z17.0) [facility] Other [id number] Nurse Note* Akua Jorge MA - 07/16/2023 3:02 PM EST Patient would like opinion on right hand pinky finger she has a bump her PCP looked at it said it was probably a cyst but she would still like your opinion, it has not changed at all. Akua Jorge MA documented [facility] NoteHNO ID: [id number] Author: Nan Sarabia MD Service: ? Author Type: Physician Type: Progress Notes Filed: 07/17/2023 5:54 AM Note Text: PATIENT NAME: Jo-Ann Roberts DATE: 07/16/2023 PRIMARY CARE PHYSICIAN: Dr. Loi Rios OTHER PHYSICIANS: Dr. Harrison, Dr. White Portions of this encounter note have been copied from my note from 06/16/2022 and has been updated where appropriate, and reflect my current medical decision making from today. CC: This is a 63 year old female with a history of breast cancer, seen for scheduled follow-up (prior patient of Dr. Birmingham). INTERIM HISTORY: Since the patient's last visit here she noticed a cyst near the proximal joint of her right fifth finger several months ago. It is not tender and has no signs of infection. Otherwise she has had no significant medical changes. When seen by her PCP to discuss options for osteoporosis treatment it was elected to continue with vitamin D/calcium and exercise. Plans will be to consider adding an antiresorptive agent if her bone density worsens. The patient has noticed no changes in her breasts. No unusual pain or other systemic symptoms. MEDICATIONS: anastrozole (ARIMIDEX) 1 mg tablet TAKE 1 TABLET DAILY CALCIUM CARBONATE/VITAMIN D3 (CALCIUM + D ORAL) Take by mouth. ALLERGIES: Keflex [Cephalexin] PAST MEDICAL HISTORY: PAST MEDICAL HISTORY Diagnosis Date Breast cancer (HCC) Right; ER+ [place]- PAST SURGICAL HISTORY: PAST SURGICAL HISTORY Procedure Laterality Date APPENDECTOMY BREAST BIOPSY LUMPECTOMY/RADIOTHERAPY DIAG MAMM/A10 TONSILLECTOMY HX REVIEW OF SYSTEMS: General: No weight loss, malaise or fevers. HEENT: Negative for frequent or significant headaches. No changes in hearing or vision, no nose bleeds or other nasal problems. Respiratory: Negative for cough, wheezing or shortness of breath. Cardiovascular: Negative for chest pain, leg swelling or palpitations. GI: Negative for abdominal discomfort, blood in stools or black stools or change in bowel habits. : No history of dysuria, frequency or incontinence. Musculoskeletal: Negative for: joint pain or swelling, back pain and muscle pain. Skin: Negative for lesions, rash and itching. Hematolgy/Lymphology: Negative for prolonged bleeding, bruising easily or swollen nodes. Neuro: No history of headaches, syncope, paralysis, seizures or tremors. PHYSICAL EXAM: Vitals: BP 159/70 Pulse 80 Temp 36.4 ?C (97.5 ?F) Resp 16 Ht 165.1 cm (5' 5 ) Wt 58.2 kg (128 lb 3.2 oz) SpO2 100% BMI 21.33 kg/m? Exam limited to gross visualization where appropriate due to COVID-19. Gen.: This is an age-appropriate patient in no acute distress. Head: Appears atraumatic with no visible lesions. Eyes: Pupils equally round and reactive to light, extraocular muscles are intact. Neck: Supple. Mouth: Mucous membranes appeared to be moist. Respiratory: Appears to be respiring comfortably. Neurologic: Nonfocal to gross visualization. Alert and oriented ?3. Psychiatric: No evidence of inappropriate anxiety or depression. Skin: Visible areas of skin without rash, lesions, wounds or petechiae. Breast examination revealed cystic breasts bilaterally, otherwise no suspicious findings LABORATORY DATA: Hemoglobin (g/dL) Date Value 06/17/2021 13.0 Hematocrit (%) Date Value 06/17/2021 39.1 WBC (k/uL) Date Value 06/17/2021 5.28 Platelet Count (k/uL) Date Value 06/17/2021 197 RADIOLOGY/OTHER STUDIES: 05/04/2023 Bilateral diagnostic mammogram ([facility]) Stable postsurgical change in the right breast. No mammographic evidence of malignancy.. Routine follow-up in 1 year recommended. 05/02/2022 Bone density DEXA ([facility]) Osteoporosis. Max T score -2.6 left femoral neck, left femur, and right femur. ASSESSMENT/PLAN: 1. 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 Status post lumpectomy and sentinel node procedure 01/06/2012. Final pathology: primary tumor 1 cm, 1 of 2 sentinel nodes involved with micrometastases. Postop the patient received adjuvant chemotherapy with docetaxel and cyclophosphamide ?4 cycles February 2012 through April 2012. She subsequently received adjuvant radiation therapy. Status post adjuvant hormonal therapy with Anastrozole x 9 years May 2012 through June 2021. Currently no evidence disease. At this time would recommend continued routine surveillance. Per patient request I will see her back in 1 year for follow-up. We will arrange for her yearly surveillance mammogram to be done in April 2024. We will further evaluate as needed if suspicious signs or symptoms develop. 2 Osteoporosis- ICD9: 733.90, ICD10: M85.80 Osteopenia (more content not included)...[facility]11-09-2023 History of Present illness Narrative* Nan Sarabia MD - 07/16/2023 7:56 AM EST PATIENT NAME: Jo-Ann Roberts DATE: 07/16/2023 PRIMARY CARE PHYSICIAN: Dr. Loi Rios OTHER PHYSICIANS: Dr. Harrison, Dr. White Portions of this encounter note have been copied from my note from 06/16/2022 and has been updated where appropriate, and reflect my current medical decision making from today. CC: This is a 63 year old female with a history of breast cancer, seen for scheduled follow-up (prior patient of Dr. Birmingham). INTERIM HISTORY: Since the patient's last visit here she noticed a cyst near the proximal joint of her right fifth finger several months ago. It is not tender and has no signs of infection. Otherwiseshe has had no significant medical changes. When seen by her PCP to discuss options for osteoporosis treatment it was elected to continue with vitamin D/calcium and exercise. Plans will be to consider adding an antiresorptive agent if her bonedensity worsens. The patient has noticed no changes in her breasts. No unusual pain or other systemic symptoms. MEDICATIONS: anastrozole (ARIMIDEX) 1 mg tablet TAKE 1 TABLET DAILY CALCIUM CARBONATE/VITAMIN D3 (CALCIUM + D ORAL) Take by mouth. ALLERGIES: Keflex [Cephalexin] PAST MEDICAL HISTORY: PAST MEDICAL HISTORY Diagnosis Date Breast cancer (HCC) Right; ER+ [place]- PAST SURGICAL HISTORY: PAST SURGICAL HISTORY Procedure Laterality Date APPENDECTOMY BREAST BIOPSY LUMPECTOMY/RADIOTHERAPY DIAG MAMM/A10 TONSILLECTOMY HX REVIEW OF SYSTEMS: General: No weight loss, malaise or fevers. HEENT: Negative for frequent or significant headaches. No changes in hearing or vision, no nose bleeds or other nasal problems. Respiratory: Negative for cough, wheezing or shortness of breath. Cardiovascular: Negative for chest pain, leg swelling or palpitations. GI: Negative for abdominal discomfort, blood in stools or black stools or change in bowel habits. : No history of dysuria, frequency or incontinence. Musculoskeletal: Negative for: joint pain or swelling, back pain and muscle pain. Skin: Negative for lesions, rash and itching. Hematolgy/Lymphology: Negative for prolonged bleeding, bruising easily or swollen nodes. Neuro: No history of headaches, syncope, paralysis, seizures or tremors. PHYSICAL EXAM: Vitals: BP 159/70 Pulse 80 Temp 36.4 C (97.5 F) Resp 16 Ht 165.1 cm (5' 5 ) Wt 58.2 kg (128 lb 3.2 oz) SpO2 100% BMI 21.33 kg/m Exam limited to gross visualization where appropriate due to COVID-19. Gen.: This is an age-appropriate patient in no acute distress. Head: Appears atraumatic with no visible lesions. Eyes: Pupils equally round and reactive to light, extraocular muscles are intact. Neck: Supple. Mouth: Mucous membranes appeared to be moist. Respiratory: Appears to be respiring comfortably. Neurologic: Nonfocal to gross visualization. Alert and oriented 3. Psychiatric: No evidence of inappropriate anxiety or depression. Skin: Visible areas of skin without rash, lesions, wounds or petechiae. Breast examination revealed cystic breasts bilaterally, otherwise no suspicious findings LABORATORY DATA: Hemoglobin (g/dL) Date Value 06/17/2021 13.0 Hematocrit (%) Date Value 06/17/2021 39.1 WBC (k/uL) Date Value 06/17/2021 5.28 Platelet Count (k/uL) Date Value 06/17/2021 197 RADIOLOGY/OTHER STUDIES: 05/04/2023 Bilateral diagnostic mammogram ([facility]) Stable postsurgical change in the right breast. No mammographic evidence of malignancy.. Routine follow-up in 1 year recommended. 05/02/2022 Bone density DEXA ([facility]) Osteoporosis. Max T score -2.6 left femoral neck, left femur, and right femur. ASSESSMENT/PLAN: 1. 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 Status post lumpectomy and sentinel node procedure 01/06/2012. Final pathology: primary tumor 1 cm, 1 of 2 sentinel nodes involved with micrometastases. Postop the patient received adjuvant chemotherapy with docetaxel and cyclophosphamide 4 cycles February2012 through April 2012. She subsequently received adjuvant radiation therapy. Status post adjuvant hormonal therapy with Anastrozole x 9 years May 2012 through June 2021. Currently no evidence disease. At this time would recommend continued routine surveillance. Per patient request I will see her back in 1 year for follow-up. We will arrange for her yearly surveillance mammogram to be done in April 2024. We will further evaluate as needed if suspicious signs or symptoms develop. 2 Osteoporosis- ICD9: 733.90, ICD10: M85.80 Osteopenia diagnosed September 2015 and the patient started Calcium and Vitamin D supplements plus weight bearing exercise as tolerated. Follow-up bone density exam April 2022 revealed progressive bone loss consistent with osteoporosis. Options for management were discussed including starting an oral antiresorptive agent such as Fosamax or Boniva, starting parenteral treatment with Reclast (given IV yearly) or Prolia (given subcu every 6 months), or starting Evista. The patient requested to holdoff on further intervention at this time. Repeat bone density April 2024. The patient appears to have a small cyst near the base of her right fifth finger. She will observe for now. She will contact her PCP for referral to hand surgery if the lesion increases in size or become symptomatic. Nan Sarabia MD CC: Dr. Buckner [facility] Evaluation note* Encounter Date Diagnosis Assessment Notes Treatment Notes Treatment Clinical Notes Jun, Wellness examination (ICD-10 - Z00.00) Healthy diet and exercise. Reviewed age-appropriate preventive testing recommended. Jun, Elevated BP without diagnosis of hypertension (ICD-10 - R03.0) This patient is instructed to consume a healthy, low-fat, low-salt diet. They are also encouraged to continue exercise to achieve/maintain a normal BMI. Patient is instructed on home BP measurements: - rest for 5 minutes w/o talking- positioned w/ feet on floor and arm supported- average best 2/3 readings w/ goal < 135/85 _update office w/ results Jun, Osteopenia of lumbar spine (ICD-10 - M85.88) Calcium and Vit D supplements. Weight bearing exercises Repeat DEXA and if worsening T score would initiate bisphosphonate therapy Jun, Nephrolithiasis (ICD-10 - N20.0) Push fliuds. No recent episodes of ureteral colic 13 Jun, 2023 Subcutaneous mass (ICD-10 - R22.9) Benign appearance but worrisome to the patient. Recommend referral for excision. [facility] Other 08-21-2023 Miscellaneous Notes* Telephone Encounter - Ayala James - 04/27/2023 4:23 PM EDT Received order at front desk person. Faxed order April 27, 2023 4:23 PM Ayala James * Telephone Encounter - Sheila Muir - 04/27/2023 2:22 PM EDT Will fax over order karen Camarena * Telephone Encounter - Dipti Ulloa RN - 04/27/2023 1:14 PM EDT Patient is scheduled for aida diagnostic memo. Per their protocol since she is so far out from diagnosis they need a aiad screening ordered with a screening dx. Dipti Ulloa RN ' BRM: Order pended for signature. PSS: Please fax to [phone] Thanks. Dipti Ulloa RN documented [facility] Evaluation note* Encounter Date Diagnosis Assessment Notes Treatment Notes Treatment Clinical Notes Oct, Acute bacterial conjunctivitis of left eye (ICD-10 - H10.32) Use medication as directed. Recommend discarding makeup if applicable. Need to wash linens on bed. If you wear contacts dispose of them or if not disposable then must thoroughly decontaminate the contacts before wearing them again. Contact eye doctor if symptoms are not improved by Thursday. If any changes in vision occurs then recommend going to ER immediately, Conjunctivitis material was printed [facility] Other 11-30-2022 Hospital Discharge instructions Patient Education 08/06/2022 13:10:54 Dietary Guidelines to Help Prevent Kidney Stones Dietary Guidelines to Help Prevent Kidney Stones Kidney stones are deposits of minerals and salts that form inside your kidneys. Your risk of developing kidney stones may be greater depending on your diet, your lifestyle, the medicines you take, and whether you have certain medical conditions. Most people can reduce their chances of developing kidney stones by following the instructions below. Depending on your overall health and the type of kidney stones you tend to develop, your dietitian may give you more specific instructions. What are tips for following this plan? Reading food labels Choose foods with no salt added or low-salt labels. Limit your sodium intake to less than 1500 mg per day. Choose foods with calcium for each meal and snack. Try to eat about 300 mg of calcium at each meal.Foods that contain 200 500 mg of calcium per serving include: ?8 oz (237 ml) of milk, fortified nondairy milk, and fortified fruit juice. ?8 oz (237 ml) of kefir, yogurt, and soy yogurt. ?4 oz (118 ml) of tofu. ?1 oz of cheese. ?1 cup (300 g) of dried figs. ?1 cup (91 g) of cooked broccoli. ?1 3 oz can of sardines or mackerel. Most people need 1000 to 1500 mg of calcium each day. Talk to your dietitian about how much calciumis recommended for you. Shopping Buy plenty of fresh fruits and vegetables. Most people do not need to avoid fruits and vegetables, even if they contain nutrients that may contribute to kidney stones. When shopping for convenience foods, choose: ?Whole pieces of fruit. ?Premade salads with dressing on the side. ?Low-fat fruit and yogurt smoothies. Avoid buying frozen meals or prepared deli foods. Look for foods with live cultures, such as yogurt and kefir. Cooking Do not add salt to food when cooking. Place a salt shaker on the table and allow each person to addhis or her own salt to taste. Use vegetable protein, such as beans, textured vegetable protein (TVP), or tofu instead of meat in pasta, casseroles, and soups. Meal planning Eat less salt, if told by your dietitian. To do this: ?Avoid eating processed or premade food. ?Avoid eating fast food. Eat less animal protein, including cheese, meat, poultry, or fish, if told by your dietitian. To dothis: ?Limit the number of times you have meat, poultry, fish, or cheese each week. Eat a diet free of meat at least 2 days a week. ?Eat only one serving each day of meat, poultry, fish, or seafood. ?When you prepare animal protein, cut pieces into small portion sizes. For most meat and fish, one serving is about the size of one deck of cards. Eat at least 5 servings of fresh fruits and vegetables each day. To do this: ?Keep fruits and vegetables on hand for snacks. ?Eat 1 piece of fruit or a handful of berries with breakfast. ?Have a salad and fruit at lunch. ?Have two kinds of vegetables at dinner. Limit foods that are high in a substance called oxalate. These include: ?Spinach. ?Rhubarb. ?Beets. ?Potato chips and tongan fries. ?Nuts. If you regularly take a diuretic medicine, make sure to eat at least 1 2 fruits or vegetables high in potassium each day. These include: ?Avocado. ?Banana. ?[place], prune, carrot, or tomato juice. ?Baked potato. ?Cabbage. ?Beans and split peas. General instructions Drink enough fluid to keep your urine clear or pale yellow. This is the most important thing you can do. Talk to your health care provider and dietitian about taking daily supplements. Depending on your health and the cause of your kidney stones, you may be advised: ?Not to take supplements with vitamin C. ?To take a calcium supplement. ?To take a daily probiotic supplement. ?To take other supplements such as magnesium, fish oil, or vitamin B6. Take all medicines and supplements as told by your health care provider. Limit alcohol intake to no more than 1 drink a day for non women and 2 drinks a day for men. One drink equals 12 oz of beer, 5 oz of wine, or 1 oz of hard liquor. Lose weight if told by your health care provider. Work with your dietitian to find strategies and an eating plan that works best for you. What foods are not recommended? Limit your intake of the following foods, or as told by your dietitian. Talk to your dietitian about specific foods you should avoid based on the type of kidney stones and your overall health. Grains Breads. Bagels. Rolls. Baked goods. Salted crackers. Cereal. Pasta. Vegetables Spinach. Rhubarb. Beets. Canned vegetables. Pickles. Olives. Meats and other protein foods Nuts. Nut butters. Large portions of meat, poultry, or fish. Salted or cured meats. Deli meats. Hotdogs. Sausages. Dairy Cheese. Beverages Regular soft drinks. Regular vegetable juice. Seasonings and other foods Seasoning blends with salt. Salad dressings. Canned soups. Soy sauce. Ketchup. Barbecue sauce. Canned pasta sauce. Casseroles. Pizza. Lasagna. Frozen meals. Potato chips. Haitian fries. Summary You can reduce your risk of kidney stones by making changes to your diet. The most important thing you can do is drink enough fluid. You should drink enough fluid to keep your urine clear or pale yellow. Ask your health care provider or dietitian how much protein from animal sources you should eat eachday, and also how much salt and calcium you should have each day. This information is not intended to replace advice given to you by your health care provider. Make sure you discuss any questions you have with your health care provider. Document Released: 12/19/2011 Document Revised: 12/14/2019 Document Reviewed: 08/04/2017 [employer] Patient Education 2020 [employer]. Follow Up Care 04/30/2022 15:39:48 With:PATRICIA STRICKLAND, Wu Barksdale, URL Address: [facility] [address], [place] [id number]- When: Unknown [facility] 10-10-2022 History of Present illness Narrative* Nan Sarabia MD - 06/16/2022 8:13 AM EDT PATIENT NAME: Jo-Ann Roberts DATE: 06/16/2022 PRIMARY CARE PHYSICIAN: Dr. Loi Rios OTHER PHYSICIANS: Dr. Harrison, Dr. White Portions of this encounter note have been copied from my note from 06/17/2021 and has been updated where appropriate, and reflect my current medical decision making from today. CC: This is a 62 year old female with a history of breast cancer, seen for scheduled follow-up (prior patient of Dr. Birmingham). INTERIM HISTORY: Since the patient's last visit here she discontinued anastrozole in June 2021 after 9 years of therapy. Clinically she feels well at this time. She denies any unusual bone pain orother systemic symptoms. Her recent surveillance recent mammogram was stable, but repeat bone density exam revealed progressive bone loss consistent with osteoporosis. MEDICATIONS: anastrozole (ARIMIDEX) 1 mg tablet TAKE 1 TABLET DAILY CALCIUM CARBONATE/VITAMIN D3 (CALCIUM + D ORAL) Take by mouth. ALLERGIES: Keflex [Cephalexin] PAST MEDICAL HISTORY: PAST MEDICAL HISTORY Diagnosis Date Breast cancer (HCC) Right; ER+ [place]- PAST SURGICAL HISTORY: PAST SURGICAL HISTORY Procedure Laterality Date APPENDECTOMY BREAST BIOPSY LUMPECTOMY/RADIOTHERAPY DIAG MAMM/A10 TONSILLECTOMY HX REVIEW OF SYSTEMS: General: No weight loss, malaise or fevers. HEENT: Negative for frequent or significant headaches. No changes in hearing or vision, no nose bleeds or other nasal problems. Respiratory: Negative for cough, wheezing or shortness of breath. Cardiovascular: Negative for chest pain, leg swelling or palpitations. GI: Negative for abdominal discomfort, blood in stools or black stools or change in bowel habits. : No history of dysuria, frequency or incontinence. Musculoskeletal: Negative for: joint pain or swelling, back pain and muscle pain. Skin: Negative for lesions, rash and itching. Hematolgy/Lymphology: Negative for prolonged bleeding, bruising easily or swollen nodes. Neuro: No history of headaches, syncope, paralysis, seizures or tremors. PHYSICAL EXAM: Vitals: BP 147/67 Pulse 82 Temp 36.3 C (97.4 F) (Temporal) Resp 16 Ht 165.1 cm (5' 5 ) Wt56 kg (123 lb 6.4 oz) SpO2 99% BMI 20.53 kg/m Exam limited to gross visualization where appropriate due to COVID-19. Gen.: This is an age-appropriate patient in no acute distress. Head: Appears atraumatic with no visible lesions. Eyes: Pupils equally round and reactive to light, extraocular muscles are intact. Neck: Supple. Mouth: Mucous membranes appeared to be moist. Respiratory: Appears to be respiring comfortably. Neurologic: Nonfocal to gross visualization. Alert and oriented 3. Psychiatric: No evidence of inappropriate anxiety or depression. Skin: Visible areas of skin without rash, lesions, wounds or petechiae. Breast examination revealed cystic breasts bilaterally, otherwise no suspicious findings LABORATORY DATA: Hemoglobin (g/dL) Date Value 06/17/2021 13.0 Hematocrit (%) Date Value 06/17/2021 39.1 WBC (k/uL) Date Value 06/17/2021 5.28 Platelet Count (k/uL) Date Value 06/17/2021 197 RADIOLOGY/OTHER STUDIES: 05/02/2022 Bone density DEXA ([facility]) Osteoporosis. Max T score -2.6 left femoral neck, left femur, and right femur. And left femur 05/02/2022 Bilateral diagnostic mammogram ([facility]) Stable postsurgical change in the right breast. No mammographic evidence of malignancy or significant change. Routine follow-up in 1 year recommended. ASSESSMENT/PLAN: 1. 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 Status post lumpectomy and sentinel node procedure 01/06/2012. Final pathology: primary tumor 1 cm, 1 of 2 sentinel nodes involved with micrometastases. Postop the patient received adjuvant chemotherapy with docetaxel and cyclophosphamide 4 cycles February2012 through April 2012. She subsequently received adjuvant radiation therapy. Adjuvant hormonal therapy with Anastrozole started May 2012 and discontinued June 2021. Currently no evidence d isease. At this time I will see the patient on a yearly basis for follow-up and labs. We will arrange for asurveillance mammogram to be done each April. We will further evaluate as needed if suspicious signs or symptoms develop. 2 Osteoporosis- ICD9: 733.90, ICD10: M85.80 Osteopenia diagnosed September 2015 and the patient started Calcium and Vitamin D supplements and weight bearing exercise as tolerated. Follow-up bone density exam April 2022 revealed progressive boneloss consistent with osteoporosis. Options for management were discussed including starting an oralantiresorptive agent such as Fosamax or Boniva, or starting parenteral treatment with Reclast (given IV yearly) or Prolia (given subcu every 6 months). I suggested that she contact her PCP to discussthese options and proceed with treatment. If parental therapy recommended we can arrange to be given at our office. Nan Sarabia MD CC: [facility] Buckner [facility] Discharge instructions Patient Education 03/12/2022 11:25:34 Kidney Stones Kidney Stones Kidney stones are solid, rock-like deposits that form inside of the kidneys. The kidneys are a pairof organs that make urine. A kidney stone may form in a kidney and move into other parts of the urinary tract, including the tubes that connect the kidneys to the bladder (ureters), the bladder, and the tube that carries urine out of the body (urethra). As the stone moves through these areas, it can cause intense pain and block the flow of urine. Kidney stones are created when high levels of certain minerals are found in the urine. The stones are usually passed out of the body through urination, but in some cases, medical treatment may be needed to remove them. What are the causes? Kidney stones may be caused by: A condition in which certain glands produce too much parathyroid hormone (primary hyperparathyroidism), which causes too much calcium buildup in the blood. A buildup of uric acid crystals in the bladder (hyperuricosuria). Uric acid is a chemical that the body produces when you eat certain foods. It usually exits the body in the urine. Narrowing (stricture) of one or both of the ureters. A kidney blockage that is present at (congenital obstruction). Past surgery on the kidney or the ureters, such as gastric bypass surgery. What increases the risk? The following factors may make you more likely to develop this condition: Having had a kidney stone in the past. Having a family history of kidney stones. Not drinking enough water. Eating a diet that is high in protein, salt (sodium), or sugar. Being overweight or obese. What are the signs or symptoms? Symptoms of a kidney stone may include: Pain in the side of the abdomen, right below the ribs (flank pain). Pain usually spreads (radiates)to the groin. Needing to urinate frequently or urgently. Painful urination. Blood in the urine (hematuria). Nausea. Vomiting. Fever and chills. How is this diagnosed? This condition may be diagnosed based on: Your symptoms and medical history. A physical exam. Blood tests. Urine tests. These may be done before and after the stone passes out of your body through urination. Imaging tests, such as a CT scan, abdominal X-ray, or ultrasound. A procedure to examine the inside of the bladder (cystoscopy). How is this treated? Treatment for kidney stones depends on the size, location, and makeup of the stones. Kidney stones will often pass out of the body through urination. You may need to: Increase your fluid intake to help pass the stone. In some cases, you may be given fluids through an IV and may need to be monitored at the hospital. Take medicine for pain. Make changes in your diet to help prevent kidney stones from coming back. Sometimes, medical procedures are needed to remove a kidney stone. This may involve: A procedure to break up kidney stones using: ?A focused beam of light (laser therapy). ?Shock waves (extracorporeal shock wave lithotripsy). Surgery to remove kidney stones. This may be needed if you have severe pain or have stones that block your urinary tract. Follow these instructions at home: Medicines Take qhet-pqv-jcyvnok and prescription medicines only as told by your health care provider. Ask your health care provider if the medicine prescribed to you requires you to avoid driving or using heavy machinery. Eating and drinking Drink enough fluid to keep your urine pale yellow. You may be instructed to drink at least 8 10 glasses of water each day. This will help you pass the kidney stone. If directed, change your diet. This may include: ?Limiting how much sodium you eat. ?Eating more fruits and vegetables. ?Limiting how much animal protein such as red meat, poultry, fish, and eggs you eat. Follow instructions from your health care provider about eating or drinking restrictions. General instructions Collect urine samples as told by your health care provider. You may need to collect a urine sample: ?24 hours after you pass the stone. ?8 12 weeks after passing the kidney stone, and every 6 12 months after that. Strain your urine every time you urinate, for as long as directed. Use the strainer that your health care provider recommends. Do not throw out the kidney stone after passing it. Keep the stone so it can be tested by your health care provider. Testing the makeup of your kidney stone may help prevent you from getting kidney stones in the future. Keep all follow-up visits as told by your health care provider. This is important. You may need follow-up X-rays or ultrasounds to make sure that your stone has passed. How is this prevented? To prevent another kidney stone: Drink enough fluid to keep your urine pale yellow. This is the best way to prevent kidney stones. Eat a healthy diet and follow recommendations from your health care provider about foods to avoid. You may be instructed to eat a low-protein diet. Recommendations vary depending on the type of kidney stone that you have. Maintain a healthy weight. Where to find more information National Kidney Foundation (NKF): www.kidney.org U[employer] Foundation (UCF): www.urologyhealth.org Contact a health care provider if: You have pain that gets worse or does not get better with medicine. Get help right away if: You have a fever or chills. You develop severe pain. You develop new abdominal pain. You faint. You are unable to urinate. Summary Kidney stones are solid, rock-like deposits that form inside of the kidneys. Kidney stones can cause nausea, vomiting, blood in the urine, abdominal pain, and the urge to urinate frequently. Treatment for kidney stones depends on the size, location, and makeup of the stones. Kidney stones will often pass out of the body through urination. Kidney stones can be prevented by drinking enough fluids, eating a healthy diet, and maintaining a healthy weight. This information is not intended to replace advice given to you by your health care provider. Make sure you discuss any questions you have with your health care provider. Document Released: 08/24/2006 Document Revised: 01/10/2020 Document Reviewed: 01/10/2020 [employer]IM Patient Education 2019 [employer]. Follow Up Care 02/13/2022 09:45:15 With:PATRICIA STRICKLAND, TIM Herbert Address: [facility] [address] , [place] [address]- When:3 months Comments:w/metabolic workup [facility] 05-23-2022 Miscellaneous Notes* Telephone Encounter - Ryan Daniels APRN.CNP - 01/27/2022 4:44 PM EDT The following approved medication requests have been refused. Refused Prescriptions Disp Refills anastrozole (ARIMIDEX) 1 mg tablet [Pharmacy Med Name: ANASTROZOLE TABS 1MG] 90 tablet 3 Sig: TAKE 1 TABLET DAILY OFELIA: No Refused By: RYAN DANIELS Reason for Refusal: A Refill not appropriate Ryan Daniels APRN.[employer] [facility] History of Past illness Narrative* Problem Noted Date Resolved Date Breast CA 09/02/2012 09/16/2018 Overview: Right; ER+ [place]-; HER2 - documented as of this encounter (statuses as of 01/28/2022) [facility] History of Past illness Narrative* Problem Noted Date Resolved Date Breast CA 09/02/2012 09/16/2018 Overview: Right; ER+ [place]-; HER2 - documented as of this encounter (statuses as of 06/17/2022) [address]27-2012 History of Past illness Narrative* Problem Noted Date Diagnosed Date Resolved Date Breast CA 09/02/2012 09/16/2018 Overview: Right; ER+ [place]-; HER2 - documented as of this encounter (statuses as of 04/28/2023) [place] [address]-27-2012 History of Past illness Narrative* Problem Noted Date Diagnosed Date Resolved Date Breast CA 09/02/2012 09/16/2018 Overview: Right; ER+ [place]-; HER2 - documented as of this encounter (statuses as of 07/17/2023) [facility] Future Appointments Appointment Date:06/23/2022 03:00:00 PM Scheduled Provider:Wu VELEZ MD Location:[facility] Appointment Type:URO Office Visit [facility] Evaluation + Plan note Future Appointments Appointment Date:08/10/2023 02:45:00 PM Scheduled Provider:Wu VELEZ MD Location:[facility] Appointment Type:URO Office Visit [facility] [place] [employer] Evaluation + Plan note Future Appointments Appointment Date:03/03/2025 08:45:00 AM Scheduled Provider:Wu VELEZ MD Location:[facility] Appointment Type:URO Office Visit [facility] evaluation noteNo assessment information available [facility] Diagnosis Malignant neoplasm of upper-outer quadrant of right breast in female, estrogen receptor positive (HCC)- Primary Age-related osteoporosis without current pathological fracture Senile osteoporosis documented in this encounter [facility] note* Diagnosis Encounter for screening mammogram for malignant neoplasm of breast- Primary Other screening mammogram documented in this encounter [facility] note* Diagnosis Malignant neoplasm of upper-outer quadrant of right breast in female, estrogen receptor positive (HCC)- Primary Age-related osteoporosis without current pathological fracture Senile osteoporosis documented in this encounter [facility] general Narrative - Reported* Type Description Date Medical History Breast cancer Surgical History appendectomy Surgical History tonsillectomy Surgical History lumpectomy, right breast x2 201 2 Hospitalization History see above surgical histo [employer] Other History general Narrative - Reported* Type Description Date Medical History Breast cancer Medical History Nephrolithiasis Medical History Osteopenia of lumbar spine Surgical History appendectomy Surgical History tonsillectomy Surgical History lumpectomy, right breast x2 201 2 Hospitalization History see above surgical histo ry [facility] Other Hospital course Narrative No data available for this section [facility] [employer] [facility] note No data available for this section [facility] [employer] Reason for referral (narrative)* Diagnostic Procedure Only (Routine) - Pending Review Specialty Diagnoses / Procedures Referred By Contac t Referred To Contact [facility] Diagnoses Malignant neoplasm of upper-outer quadrant of right breast in female, estrogen receptor positive (HCC) Procedures MEMO DIAGNOSTIC BILAT DIAGNOSTIC MAMMOGRAPHY COMPUTER-AIDED DETCJ Nan Miranda MD [address] [place] [address] [place] [address] [facility] [address] [place] [phone] Referral ID Status Reason Start Date Expiration Date Visits Requested Visits Authorized [id number] Pending Review Auto-Generat ed Referral 07/16/2023 1 1 T [facility] for referral (narrative)* Diagnostic Procedure Only (Routine) - Pending Review Specialty Diagnoses / Procedures Referred By Contac t Referred To Contact [facility] Diagnoses Encounter for screening mammogram for malignant neoplasm of breast Procedures MEMO SCREENING SCREENING MAMMOGRAPHY BI 2-VIEW BREAST INC Nan Chau MD [address] [place] [address] [place] [address] [facility] [address] [place] [phone] Referral ID Status Reason Start Date Expiration Date Visits Requested Visits Authorized [id number] Pending Review Auto-Generat ed Referral 04/27/2023 05/26/2024 1 1 T [facility] for referral (narrative)* Diagnostic Procedure Only (Routine) - Pending Review Specialty Diagnoses / Procedures Referred By Contac t Referred To Contact XR IMAGING Diagnoses Age-related osteoporosis without current pathological fracture Malignant neoplasm of upper-outer quadrant of right breast in female, estrogen receptor positive (HCC) Procedures DXA-FOREARM SKELETON DXA BONE DENSITY STUDY 1/>SITES APPENDICLR Nan Morales MD [address] [place] [address] [place] [address] X[facility] Imaging [facility] Referral ID Status Reason Start Date Expiration Date Visits Requested Visits Authorized [id number] Pending Review Auto-Generat ed Referral 07/16/2023 08/14/2024 1 1 * Diagnostic Procedure Only (Routine) - Pending Review Specialty Diagnoses / Procedures Referred By Contac t Referred To Contact [facility] Diagnoses Age-related osteoporosis without current pathological fracture Malignant neoplasm of upper-outer quadrant of right breast in female, estrogen receptor positive (HCC) Procedures MEMO SCREENING W FAISAL SCREENING DIGITAL BREAST TOMOSYNTHESIS BI SCREENING MAMMOGRAPHY BI 2-VIEW BREAST INC Nan Chau MD [address] [place] [address] [place] [address] [facility] [address] [place] [id number] Referral ID Status Reason Start Date Expiration Date Visits Requested Visits Authorized [id number] Pending Review Auto-Generat ed Referral 07/16/2023 08/14/2024 1 1 [facility] Chief Complaint and Reason for Visit Chief Complaint kidney stone kidney stone Family History No Family History Records Found Relationship Condition Age at Onset Recorded Date/T haylee father Hypertension Unknown Congestive heart failure Unknown Advance Directives No Advanced Directives Records Found Advance Directive Response Recorded Date/ Time Advance Directives No October 10:23am Summary Purpose Additional Source Comments Goals (unrecognized section and content) Goals may be documented in a n alternate section No data available for this section No data available for this sectionNo InformationNo InformationNo Information No data available for this section INFORMATION SOURCE (unrecogn ized section and content) DATE CREATED AUTHOR 10/24/2021 [facility] DATE CREATED AUTHOR AUTHOR'S ORGANIZ ATION 04/08/2022 [facility] DATE CREATED AUTHOR AUTHOR'S ORGANIZ ATION 07/18/2023 [facility] DATE CREATED AUTHOR AUTHOR'S ORGANIZ ATION 03/05/2024 [facility] Source Comments (unrecognize d section and content) In the event this informatio n is protected by the Federal Confidentiality of Alcohol and Drug Abuse Patient Records regulations: The Federal rules restrict any use of the information to criminally investigate or prosecute any alcohol or drug abuse patient.[facility] the event this information is protected by the Federal Confidentiality of Alcohol and Drug Abuse Patient Records regulations: The Federal rules restrict any use of the information to criminally investigate or prosecute any alcohol or drug abuse patient.[facility] the event this information is protected by the Federal Confidentiality of Alcohol and Drug Abuse Patient Records regulations: The Federal rules restrict any use of the information to criminally investigate or prosecute any alcohol or drug abuse patient.[facility] the event this information is protected by the Federal Confidentiality of Alcohol and Drug Abuse Patient Records regulations: The Federal rules restrict any use of the information to criminally investigate or prosecute any alcohol or drug abuse patient.[facility] Reason for Visit (unrecogniz ed section and content) Reason Comments Refill Request Reason Comments Breast Cancer Reason Comments Orders Reason Comments Breast Cancer 1 year follow up Care Teams (unrecognized sec tion and content) Remarketing Rep Relationship Specialty Start Date End Date Samm Palmer PCP - General Family Practice 01/15/12 Remarketing Rep Relationship Specialty Start Date End Date Juma Buckner, DO [address] [place] [address] PCP - General Internal Medicine 06/16/22 Remarketing Rep Relationship Specialty Start Date End Date Juma Buckner, DO [address] [place] [address] PCP - General Internal Medicine 06/16/22 Remarketing Rep Relationship Specialty Start Date End Date Juma Buckner DO [address] [place], [place] [id number] PCP - General Internal Medicine 06/16/22 FOR RECORDS PERTAINING TO PATIENTS WHO ARE OR HAVE BEEN ENROLLED IN A CHEMICAL DEPENDENCY/SUBSTANCEABUSE PROGRAM, SOME INFORMATION MAY BE OMITTED. This clinical summary was aggregated from multiple sources. Caution should be exercised in using it in the provision of clinical care. This summary normalizes information from multiple sources, and as a consequence, information in this document may materially change the coding, format and clinical context of patient data. In addition, data may be omitted in some cases. CLINICAL DECISIONS SHOULD BE BASED ON THE PRIMARY CLINICAL RECORDS. [employer] [facility]. provides no warranty or guarantee of the accuracy or completeness of information in this document.
--- NOTE | 2024-04-04 08:43 | P.GSHP_ITS ---
History of Present Illness History of Present Illness Chief complaint: right kidney stone Narrative: Patient presents for preadmission testing. The patient reports a history of kidney stones. The patient states she had a regularly scheduled follow-up and her KUB demonstrated a right-sided stone. The patient states she has no symptoms. She denies nausea, vomiting, dysuria, hematuria, flank pain, abdominal pain, or any other complaints. Review of Systems ROS Narrative REVIEW OF SYSTEMS: Negative except as stated in HPI, ten or more systems reviewed. Constitutional: No fever, chills, weakness ENT: No sore throat or epistaxis Cardiovascular: No edema, chest pain, palpitations, or activity intolerance Respiratory: No shortness of breath, cough, or wheezing Musculoskeletal: No joint pain or swelling Gastrointestinal: No abdominal pain, constipation, diarrhea, or vomiting Genitourinary: No dysuria or hematuria Neurological: No numbness, tingling, weakness, or headache Psychiatric: No mood changes PFSH PFSH Medical History (Updated 04/04/24 @ 08:27 by Malina Garcia NP) Breast cancer ?C50.919 - Malignant neoplasm of unspecified site of unspecified female breast (ICD-10) Menopause ?Z78.0 - Asymptomatic menopausal state (ICD-10) Kidney stones ?N20.0 - Calculus of kidney (ICD-10) S/P extracorporeal shock wave therapy ?Z98.890 - Other specified postprocedural states (ICD-10) Surgical History (Updated 04/04/24 @ 08:27 by Malina Garcia NP) History of tonsillectomy ?Z90.89 - Acquired absence of other organs (ICD-10) History of appendectomy ?Z90.49 - Acquired absence of other specified parts of digestive tract (ICD- 10) History of breast biopsy ?Z98.890 - Other specified postprocedural states (ICD-10) S/P breast lumpectomy ?Z98.890 - Other specified postprocedural states (ICD-10) Family History (Updated 04/04/24 @ 08:27 by Malina Garcia NP) Other Family history of COPD (chronic obstructive pulmonary disease) Family history of aneurysm Family history of heart disease Family history of hypertension Social History (Updated 04/04/24 @ 08:22 by Malina Garcia NP) Within the past year, how often did you have a drink containing alcohol: never Score interpretation: A score less than 3 is consistent with normal alcohol consumption. Smoking status: Never smoker Non-prescribed substance use: denies use Previous occupational history: [employer] Highest level of school completed/degree received: Bachelor's degree Meds Home Medications and Allergies Home Medications ?Medication ?Instructions ?Recorded ?Confirmed ?Type calcium 100 mg capsule mg PO 04/04/24 History cholecalciferol (vitamin D3) 25 25 mcg PO DAILY 04/04/24 04/04/24 History mcg (1,000 unit) capsule potassium citrate 10 mEq (1,080 20 meq PO BID 04/04/24 04/04/24 History mg) tablet,extended release Allergies Allergy/AdvReac Type Severity Reaction Status Date / Time cephalexin [From Keflex] Allergy Hives Verified 04/04/24 08:20 Exam Narrative Exam Narrative: Constitutional: Awake, alert, comfortable, well-appearing, nontoxic, interactive, vital signs as charted Head: Normocephalic, atraumatic Neck: Supple, normal appearance, normal range of motion, no meningeal signs, no lymphadenopathy Respiratory: No respiratory distress, breath sounds clear Cardiovascular: Regular rate and rhythm, strong and regular heart tones Abdomen: Nontender, normal bowel sounds, soft, no CVA tenderness Musculoskeletal: Normal gait, no swelling or edema Skin: No rashes or induration, no lesions, only visible skin inspected Neuro: No neurological deficits, normal sensation Psychiatric: Oriented ?3, normal affect Assessment and Plan Assessment and Plan (1) Kidney stones: Plan Right ESWL scheduled with Dr. Velez April 14, 2024.
[2024-04-04 08:46] LABS: Basophils Percent Auto 1.5 % (0.2-2.0); Eosinophils Absolute Auto 0.1 10^3/uL (0.0-0.7); Hematocrit 42.8 % (36.0-48.0); Hemoglobin 14.2 g/dL (12.0-16.0); Immature Granulocytes Abs Auto 0.01 10^3/uL (0.00-0.03); Immature Granulocytes Pct Auto 0.4 % (0.0-0.5); Lymphocytes Absolute Auto 0.9 10^3/uL (1.2-3.8); Lymphocytes Percent Auto 33.3 % (20.5-60.0); Mean Corpuscular HGB Conc 33.2 g/dL (29.9-35.2); Mean Corpuscular Volume 93.4 fL (81.0-99.0); Mean Platelet Volume 10.9 fL (9.5-13.5); Monocytes Absolute Auto 0.4 10^3/uL (0.3-0.8); Neutrophils Absolute Auto 1.3 10^3/uL (1.4-6.5); Neutrophils Percent Auto 46.8 % (43.0-75.0); Platelet Count 198 10^3/uL (150-450); Red Blood Count 4.58 10^6/uL (4.20-5.40); White Blood Count 2.7 10^3/uL (4.0-11.0)
[2024-04-04 09:04] LABS: INR 1.13; Partial Thromboplastin Time 29.7 sec (22.3-36.2); Prothrombin Time 11.8 sec (9.0-11.6)
[2024-04-04 09:12] LABS: Anion Gap 12.4; BUN Creatinine Ratio 25.8; Calcium 8.9 mg/dL (8.5-10.1); Carbon Dioxide 27.6 mmol/L (21.0-32.0); Chloride 104 mmol/L (98-107); Estimated GFR (African America >60 (>=60); Estimated GFR (Non-African Ame 58 (>=60); Glucose 92 mg/dL (74-106); Sodium 140 mmol/L (136-145)
== END 2024-04-04 07:59 | disposition home or self-care (01) ==
LOC: PST 07:59
PROVIDERS: PCP Internal Medicine; Visit Provider Urology
DX: Z01.810 Encounter for preprocedural cardiovascular examination (principal); Z01.812 Encounter for preprocedural laboratory examination; Z01.818 Encounter for other preprocedural examination; N20.0 Calculus of kidney
CPT/HCPCS: 80048; 85025; 85610; 85730; 93005; G0463

== ENCOUNTER 2024-04-13 13:49 | Outpatient (OUT) | payer OTHER, SELFPAY ==
[2024-04-13 14:06] LABS: Basophils Percent Auto 0.7 % (0.2-2.0); Eosinophils Absolute Auto 0.1 10^3/uL (0.0-0.7); Eosinophils Percent Auto 1.2 % (0.9-7.0); Hemoglobin 13.6 g/dL (12.0-16.0); Immature Granulocytes Abs Auto 0.01 10^3/uL (0.00-0.03); Immature Granulocytes Pct Auto 0.2 % (0.0-0.5); Lymphocytes Absolute Auto 1.1 10^3/uL (1.2-3.8); Lymphocytes Percent Auto 18.8 % (20.5-60.0); Mean Corpuscular HGB Conc 33.2 g/dL (29.9-35.2); Mean Corpuscular Hemoglobin 31.3 pg (26.7-34.0); Mean Corpuscular Volume 94.5 fL (81.0-99.0); Mean Platelet Volume 11.2 fL (9.5-13.5); Monocytes Absolute Auto 0.3 10^3/uL (0.3-0.8); Monocytes Percent Auto 5.4 % (1.7-12.0); Neutrophils Absolute Auto 4.2 10^3/uL (1.4-6.5); Neutrophils Percent Auto 73.7 % (43.0-75.0); Platelet Count 199 10^3/uL (150-450); Red Blood Count 4.34 10^6/uL (4.20-5.40); Red Cell Distribution Width 12.1 % (11.0-15.0); White Blood Count 5.7 10^3/uL (4.0-11.0)
[2024-04-13 14:17] LABS: Erythrocyte Sedimentation Rate 6 mm/hr (<=30)
[2024-04-13 14:32] LABS: C Reactive Protein <0.50 mg/dL (<=0.50)
[2024-04-14 14:09] LABS: ANA Direct Negative (Negative)
== END 2024-04-13 13:50 | disposition home or self-care (01) ==
LOC: LAB 13:51
PROVIDERS: PCP Internal Medicine; Visit Provider Internal Medicine
DX: D72.819 Decreased white blood cell count, unspecified (principal)
CPT/HCPCS: 36415; 85025; 85652; 86038; 86140

== ENCOUNTER 2024-04-14 08:31 | Day surgery (SDC) | payer OTHER, SELFPAY ==
[2024-04-04 08:41] VITALS: BP 145/80; PULSE 70; TEMP 36.6; O2SAT 100; BMI 21.9
[2024-04-14] VITALS (10 sets, daily range): BP systolic 126–174; BP diastolic 73–98; PULSE 67–82; TEMP 36.1–36.4; O2SAT 95–99; BMI 21.9
--- NOTE | 2024-04-14 08:30 | XR_ITS ---
The [address] [address] Patient Name: ALBERT ABREU MRN: [id number] date: 1960 Sex: F Assigned Patient Location: [facility] Current Patient Location: Accession/Order Number: [id number] Exam Date: 04/14/2024 08:40 Report Date: 04/18/2024 13:51 At the request of: ROLAND GOMEZ Procedure: XR abdomen 1V EXAMINATION: XR abdomen 1V HISTORY: kidney stones COMPARISON: 02/24/2024 FINDINGS: KIDNEY/URETER - RIGHT: Stable 5 mm right mid pole nephrolith KIDNEY/URETER - LEFT: No visible renal or ureteral calcifications. PELVIS: No visible ureteral calcifications. Any visible calcifications favor phleboliths. BOWEL: No abnormal dilation or deviation. BONES: Rotatory dextroscoliosis centered at L2. Degenerative spondylosis OTHER: Negative. No abnormal gaseous collections. XR/XR abdomen 1V IMPRESSION: Stable right 5 mm nephrolith Electronically authenticated by: JOSH MORTON Date: 04/18/2024 13:51
--- OUTSIDE RECORDS SUMMARY | 2024-04-14 08:35 | XMS_ITS | CCD ---
Author Organization [facility] Care Team Providers Care [employer] Name Role Phone Adrian Oneal Jr Attending Provider [phone] Juma Buckner Primary Care Provider Samm Palmer Primary Care Provider [phone] JUMA BUCKNER Primary Care Physician PATRICIA, DR [...] (antibiotic) (1 source) Cephalexin Drug Allergy 1 [facility] (10 sources) Cephalexin; Translations: [cephalexin] Drug Allergy 7 Unknown, Weal (disorder) [facility] (5 sources) Cephalexin; Translations: [Keflex] Drug Allergy [facility] Repository Medications Current Medications Medication Drug [...] Antibacterial, Polymyxin-class Antibacterial, Corticosteroid Start: 10-28-2022 Maxitrol 3.5-53395-2 .1 apply directly under left eyelashes Ophthalmic [...] for 30 day(s), 120 tab(s), Refill(s) , [id number], 165, cm, 02/29/24 11:29:00 EDT, Height/Length Dosing, [...] BID, # 180 tab(s), Refills(s) 3, Pharmacy: [facility] #[id number], 165, cm, 08/06/22 15:18:00 EST, Height/Length Dosing, [...] [facility] [address], [place] [address] [phone] Medications What How Much When Instructions New potassium citrate (potassium CITRATE 10 mEq ER Tab) 2 Tablets By Mouth 2 times a day Duration: 30 Days Refills: 11 Pickup at [facility] #[id number] Unchanged ergocalciferol (Vitamin D) By Mouth Every week Contact prescribing physician if questions or concerns Unchanged Non-Formulary Medication (Calcium) By Mouth Every day Contact prescribing physician if questions or concerns Pharmacy Information [facility] #[id number]: [address] [place], [place] [id number] [phone] What How Much When Comments Stop Taking [...] ? Eat (more content not included)... Normal [facility] Patient Educationon 02-29-20 Patient Education Nephrology Dietary [...] Spinach (cooked), rhubarb, beets, sweet potatoes, and Cymraes chard. ? Peanuts. ? Potato chips, israeli fries, and baked potatoes with skin on. ? Nuts and nut products. ? Chocolate. ? If you regularly take a diuretic medicine, make sure to eat at least 1 or 2 servings of fruits or vegetables that are high in potassium each day. These include: ? Avocado. ? Banana. ? Hyde, prune, carrot, or tomato juice. ? Baked [...] fish oil, or vitamin B6. ? Take xcot-paa-btudaix and prescription medicines only as told by your health care provider. These include supplements. What foods sh (more content not included)... Normal [facility] Urology Office/Clinic Noteon 02-29-2024 Urology Office/Clinic Note Chief Complaint kidney stones and asymptomatic microhematuria HPI Staff 1 yr with KUB @ [facility] 02/24/24 due to kidney stones. Previous DX: asymptomatic microscopic hematuria, dysuria, gross hematuria, hydronephrosis with urinary obstruction due to ureteral calculus, kidney stones, lower abdominal pain, microscopic hematuria, ureteral stone. S/P ESWL 04/11/21. Started Effer-K 25mEq BID at prior OV. Electrolyte panel was not done. Could not find any pertaining labs from PCP ([facility], [facility], or [facility] either. Dysuria: no Incomplete bladder emptying: no [...] only been taking this once per day. [place] bloated when she took bid. Advised pt [...] [facility] [address], [place] [address]- [phone] Additional Instructions: 1 yr w/ KUB Patient [...] Tobacco Use:. Household (more content not included)... [facility] Comment on above: Result Comment: Elec tronically Signed By: Wu VELEZ MD\.br\Date and Time Signed: 02/29/24 12:00 EDT\.br\Electronically Co-Signed By: Nella Carrillo\.br\Date and Time Co-Signed: 02/29/24 11:56 EDT [facility] - MIS [phone] [id number] #[id number] [facility] CNOVSPon 07-16-2023 CNOVSP Visit (SP) Office (HE[place]) JO-ANN ROBERTS ([id number]) 1960 F Date Time Provider Department 07/16/23 [...] Diagnosis Date Breast cancer (HCC) Right; ER+ DE- PAST SURGICAL HISTORY: PAST SURGICAL HISTORY Procedure [...] 197 RADIOLOGY/OTHER STUDIES: 05/04/2023 Bilateral diagnostic mammogram ([facility]) Stable postsurgical change in the right breast. No mammographic evidence of malignancy.. Routine follow-up in 1 year recommended. 05/02/2022 Bone density DEXA ([employer]) Osteoporosis. Max T score -2.6 left femoral neck, left femur, and right femur. ASSESSMENT/PLAN: 1. 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 Normal [facility] CNPNon 07-16-2023 CNPN Telephone (NCCAP) JO-ANN ROBERTS ([id number]) 1960 F Date Time Provider Department 07/16/23 [...] Diagnosis:Osteopenia of multiple sites [M85.89] Order(s):DXA-AXIAL SKELETON [2180125] Order #: [id number] FUTURE Prescriptions as of 07/17/2023 - KLOR-CON/EF 25 mEq disintegrating tablet - anastrozole (ARIMIDEX) 1 mg tablet TAKE 1 TABLET DAILY - CALCIUM CARBONATE/VITAMIN D3 (CALCIUM + D ORAL) Take by mouth. Problem List As Of Date 07/16/2023 Noted Resolved Breast CA (HCC) [C50.919] 09/02/2012 09/16/2018 Malignant neoplasm of upper-outer quadrant of r*09/16/2018 Osteopenia [M85.80] 09/18/2018 Encounter Status:Closed by [facility] (HE[facility]) LOISJO-ANN MORENO ([id number]) 1960 F Date Time Provider Department 04/27/23 [...] pended for signature. PSS: Please fax to [phone] Thanks. KALEIGH Rodriguez Tiffany 04/27/2023 2:22 PM Signed Will fax over order thanks Ayala Schreiber 04/27/2023 4:23 PM Signed Received order at front desk host. Faxed order April 27, 2023 4:23 PM Ayala James Allergies As of Date: 04/27/2023 Noted Allergy Reaction KEFLEX (CEPHALEXIN) 01/14/2017 16 - Unknown Date Reviewed: 06/16/2022 Reviewed by: Arina Smith - Fully Assessed Reason for Visit: Orders [681] Primary Visit Diagnosis:Encounter for screening mammogram for malignant neoplasm of breast [Z12.31] Order(s):MEMO SCREENING [5193981] Order #: [id number] FUTURE Prescriptions as of 04/27/2023 - anastrozole (ARIMIDEX) 1 mg tablet TAKE 1 TABLET DAILY - CALCIUM CARBONATE/VITAMIN D3 (CALCIUM + D ORAL) Take by mouth. Problem List As Of Date 04/27/2023 Noted Resolved Breast CA (HCC) [C50.919] 09/02/2012 09/16/2018 Malignant neoplasm of upper-outer quadrant of r*09/16/2018 Osteopenia [M85.80] 09/18/2018 Encounter Status:Closed by DIPTI ULLOA on 04/27/23 [facility] OXALATE 24HR URINEon 022 Oxalates, Urine 14 mg/L Normal Undefined [facility] Comment on above: Performed By: #### U NICHOLE 24 #### [facility] [address] [address] [address] Lizzette Braga Oxalates, Urine 24hr 28 mg/24 hr Normal 4-31 [facility] Comment on above: Performed By: #### U NICHOLE 24 #### [facility] [address] [place] [address] Dr. Lizzette Braga CITRATE URINE 24HRon 022 Citric Acid, U, 24hr 265 mg/24 hr Critically low 320-1240 [facility] Comment on above: Result Comment: This test was developed and its performance characteristics determined by [employer]. It has not been cleared or approved by the Food and Drug Administration. Performed By: #### U NICHOLE 24 #### [facility] [address] [address] [address] Lizzette Braga Citric Acid, Urine 131 mg/L Normal Undefined [facility] Comment on above: Performed By: #### U NICHOLE 24 #### [facility] [address] [address] [address] Lizzette Braga MAGNESIUM 24HR URINEon 04-03 Magnesium 24hr Urine 68.9 mg/24 hr Normal 12.0-293.0 [facility] Comment on above: Performed By: #### U NICHOLE 24 #### [facility] [address] [address] [address] Lizzette Braga Magnesium UR 3.4 mg/dL Normal Not Estab. [facility] Comment on above: Performed By: #### U NICHOLE 24 #### [facility] [address] [place] [address] Dr. Lizzette Braga PHOSPHORUS 24HR URINEon 07-2 8-2022 Phosphorus, Urine 21.6 mg/dL Normal Not Estab. The [facility] Comment on above: Performed By: #### U NICHOLE 24 #### [facility] [address] [place] [address] Dr. Lizzette Braga Phosphorus, Urine 24hr 437 mg/24 hr Normal 261-1078 [facility] Comment on above: Performed By: #### U NICHOLE 24 #### [facility] [address] [place] [address] Dr. Lizzette Braga URIC ACID 24 HR URINEon 07- Uric Acid, Urine 19.0 mg/dL Normal Not Estab. The [facility] Comment on above: Performed By: #### U NICHOLE 24 #### [facility] [address] [place] [address] Dr. Lizzette Braga Uric Acid, Urine 24hr 384.8 mg/24 hr Normal 142.3-713. 2 [facility] Comment on above: Performed By: #### U NICHOLE 24 #### [facility] [address] [place] [address] Dr. Lizzette Braga CALCIUM 24 HR URINEon 2021 CALC, 24 HR UR 141.8 mg/24 hr Normal 100.0-300.0 [facility] Comment on above: Performed By: #### U NICHOLE 24 #### [facility] [address] [place] [address] Dr. Lizzette Braga UR CALCIUM 7.0 mg/dL Normal 5.1-21.0 [facility] Comment on above: Performed By: #### U NICHOLE 24 #### [facility] [address] [place] [address] Dr. Lizzette Braga CREA 24 HR URINEon 2 CREA, 24 HR UR 896.06 mg/24 hr Normal 800.00-1,8 00.0 0 [facility] Comment on above: Performed By: #### U NICHOLE 24 #### [facility] [address] [place] [address] Dr. Lizzette Braga URINE CREAT 44.25 mg/dL Normal 20.00-300.00 [facility] Comment on above: Performed By: #### U NICHOLE 24 #### [facility] [address] [address] [address] Lizzette Braga PTH INTACTon 04-01-2022 PTH, Intact 36 pg/mL Normal 15-65 [facility] Comment on above: Performed By: #### U NICHOLE 24 #### [facility] [address] [place] [address] Dr. Lizzette Braga SODIUM 24 HR URINEon 022 NA, 24 HR UR 99 mmol/24 hr Normal 40-220 [facility] Comment on above: Performed By: #### U NICHOLE 24 #### [facility] [address] [place] [address] Dr. Lizzette Braga Sodium (U) [Moles/Vol] 49 mmol/L Normal 30-90 [facility] Comment on above: Performed By: #### U NICHOLE 24 #### [facility] [address] [place] [address] Dr. Lizzette Braga UR TOT VOL 2025 ml/24 HR Normal [facility] Comment on above: Performed By: #### U NICHOLE 24 #### [facility] [address] [place] [address] Dr. Lizzette Braga BUNon 03-31-2022 Urea nitrogen [Mass/Vol] 18.0 mg/dL Normal 7.0-18.0 [facility] Comment on above: Performed By: #### C O2, CA, URIC, NA, K, CREA, BUN, CL #### [facility] [address] [place] [address] Dr. Lizzette Braga CALCIUMon 03-31-2022 Calcium [Mass/Vol] 9.0 mg/dL Normal 8.5-10.1 [facility] Comment on above: Performed By: #### U NICHOLE 24 #### [facility] [address] [place] [address] Dr. Lizzette Braga CHLORIDEon 03-31-2022 Chloride [Moles/Vol] 105 mmol/L Normal 98-107 [facility] Comment on above: Performed By: #### C O2, CA, URIC, NA, K, CREA, BUN, CL #### [facility] [address] [address] [address] Lizzette Braga CO2on 03-31-2022 CO2 [Moles/Vol] 27.7 mmol/L Normal 21.0-32.0 [facility] Comment on above: Performed By: #### C O2, CA, URIC, NA, K, CREA, BUN, CL #### [facility] [address] [address] [address] Lizzette Braga CREATININEon 03-31-2022 Creatinine [Mass/Vol] 0.96 mg/dL Normal 0.55-1.02 [facility] Comment on above: Performed By: #### C O2, CA, URIC, NA, K, CREA, BUN, CL #### [facility] [address] [address] [address] Lizzette Braga EGFR-AF BELGIAN >60 Normal >=60 [facility] Comment on above: Performed By: #### C O2, CA, URIC, NA, K, CREA, BUN, CL #### [facility] [address] [place] [address] Dr. Lizzette Braga EGFR-NON AF BELGIAN 59 mL/min/1.73m2 Critically low >=60 [facility] Comment on above: Performed By: #### C O2, CA, URIC, NA, K, CREA, BUN, CL #### [facility] [address] [place] [address] Dr. Lizzette Braga NAon 03-31-2022 Sodium [Moles/Vol] 141 mmol/L Normal 136-145 [facility] Comment on above: Performed By: #### C O2, CA, URIC, NA, K, CREA, BUN, CL #### [facility] [address] [address] [address] Lizzette Braga POTASSIUMon 03-31-2022 Potassium [Moles/Vol] 4.1 mmol/L Normal 3.5-5.1 [facility] Comment on above: Performed By: #### C O2, CA, URIC, NA, K, CREA, BUN, CL #### [facility] [address] [place] [address] Dr. Lizzette Braga URIC ACID SERUMon 03-31-2022 Urate [Mass/Vol] 3.0 mg/dL Normal 2.6-6.0 [facility] Comment on above: Performed By: #### C O2, CA, URIC, NA, K, CREA, BUN, CL #### [facility] [address] [address] [address] Lizzette Braga XR KUB 1 VIEWon [...] by: ISRRAEL COOPER Date: 2022-02-28 06:17 Normal [facility] CALCULI, URINARYon 1 2,8 Dihydroxyadenine Normal [facility] Comment on above: Performed By: #### U NICHOLE 24 #### [facility] [address] [place] [address] Dr. Lizzette Braga Ammonium Acid Urate Normal [facility] Comment on above: Performed By: #### U NICHOLE 24 #### [facility] [address] [place] [address] Dr. Lizzette Braga Bilirubin Ql (U) Normal [facility] Comment on above: Performed By: #### U NICHOLE 24 #### [facility] [address] [place] [address] Dr. Lizzette Braga Ca Oxalate Dihydrate 20 % Normal [facility] Comment on above: Performed By: #### U NICHOLE 24 #### [facility] [address] [place] [address] Dr. Lizzette Braga CaHPO4 (Brushite) Normal [facility] Comment on above: Performed By: #### U NICHOLE 24 #### [facility] [address] [place] [address] Dr. Lizzette Braga Calcium Bilirubinate [facility] Comment on above: Performed By: #### U NICHOLE 24 #### [facility] [address] [address] [address] Lizzette Braga Calcium Carbonate [facility] Comment on above: Performed By: #### U NICHOLE 24 #### [facility] [address] [address] [address] Lizzette Braga Calcium Oxalate Monohydrate 80 % [facility] Comment on above: Performed By: #### U NICHOLE 24 #### [facility] [address] [address] [address] Lizzette Braga Calcium Palmitate [facility] Comment on above: Performed By: #### U NICHOLE 24 #### [facility] [address] [address] [address] Lizzette Braga Calcium Phosphate [facility] Comment on above: Performed By: #### U NICHOLE 24 #### [facility] [address] [address] [address] Lizzette Braga Calcium Stearate [facility] Comment on above: Performed By: #### U NICHOLE 24 #### [facility] [address] [address] [address] Lizzette Braga Carbonate Apatite [facility] Comment on above: Performed By: #### U NICHOLE 24 #### [facility] [address] [address] [address] Lizzette Braga Cellular Material [facility] Comment on above: Performed By: #### U NICHOLE 24 #### [facility] [address] [address] [address] Lizzette Braga Cholesterol [facility] Comment on above: Performed By: #### U NICHOLE 24 #### [facility] [address] [address] [address] Lizzette Andrews (U) Brown [facility] Comment on above: Performed By: #### U NICHOLE 24 #### [facility] [address] [address] [address] Lizzette Braga Comment [facility] Comment on above: Performed By: #### U NICHOLE 24 #### [facility] [address] [address] [address] Lizzette Braga Comment: Comment Normal [facility] Comment on above: Result Comment: Lyle carias questions regarding Calculi Analysis contact [facility] at: [phone]. Performed By: #### U NICHOLE 24 #### [facility] [address] [address] [address] Lizzette Braga Composition Comment Normal [facility] Comment on above: Result Comment: Perc entage (Represents the % composition) Performed By: #### U NICHOLE 24 #### [facility] [address] [address] [address] Lizzette Braga Cystine Normal [facility] Comment on above: Performed By: #### U NICHOLE 24 #### [facility] [address] [place] [address] Dr. Lizzette Braga Disclaimer: Comment Normal [facility] Comment on above: Result Comment: This test was developed and its performance characteristics determined by [employer]. It has not been cleared or approved by the Food and Drug Administration. Performed By: #### U NICHOLE 24 #### [facility] [address] [address] [address] Lizzette Braga Dried Blood Normal [facility] Comment on above: Performed By: #### U NICHOLE 24 #### [facility] [address] [place] [address] Dr. Lizzette Braga Drug or Metabolite Normal [facility] Comment on above: Performed By: #### U NICHOLE 24 #### [facility] [address] [address] [address] Lizzette Braga Hydroxyapatite Normal [facility] Comment on above: Performed By: #### U NICHOLE 24 #### [facility] [address] [place] [address] Dr. Lizzette Braga Mg NH4 PO4 (Struvite) Normal [facility] Comment on above: Performed By: #### U NICHOLE 24 #### [facility] [address] [place] [address] Dr. Lizzette Braga MgHPO4 (Newberyite) Normal [facility] Comment on above: Performed By: #### U NICHOLE 24 #### [facility] [address] [address] [address] Lizzette Braga Other component(s) Normal [facility] Comment on above: Performed By: #### U NICHOLE 24 #### [facility] [address] [address] [address] Lizzette Braga PDF . Normal [facility] Comment on above: Performed By: #### U NICHOLE 24 #### [facility] [address] [address] [address] Lizzette Braga Photo Comment [facility] Comment on above: Result Comment: Phot ograph will follow under a separate cover Performed By: #### U NICOHLE 24 #### [facility] [address] [place] [address] Dr. Lizzette Braga Please note: Comment [facility] Comment on above: Result Comment: Calc romelia report will follow via computer, mail or aviation metalsmith delivery. Performed By: #### U NICHOLE 24 #### [facility] [address] [place] [address] Dr. Lizzette Braga Size 3x3 [facility] Comment on above: Result Comment: Mult iple pieces received. Dimensions of the largest piece reported. Performed By: #### U NICHOLE 24 #### [facility] [address] [place] [address] Dr. Lizzette Braga Sodium Acid Urate Normal [facility] Comment on above: Performed By: #### U NICHOLE 24 #### [facility] [address] [address] [address] Lizzette Braga Source Comment [facility] Comment on above: Result Comment: Not provided Performed By: #### U NICHOLE 24 #### [facility] [address] [address] [address] Lizzette Braga [employer] [facility] Comment on above: Performed By: #### U NICHOLE 24 #### [facility] [address] [place] [address] Dr. Lizzette Braga Uric Acid [facility] Comment on above: Performed By: #### U NICHOLE 24 #### [facility] [address] [address] [address] Lizzette Braga Uric Acid Dihydrate Normal [facility] Comment on above: Performed By: #### U NICHOLE 24 #### [facility] [address] [address] [address] Lizzette Braga Weight 84 mg Normal [facility] Comment on above: Performed By: #### U NICHOLE 24 #### [facility] [address] [address] [address] Lizzette Braga Xanthine Normal [facility] Comment on above: Performed By: #### U NICHOLE 24 #### [facility] [address] [address] [address] Lizzette Braga XR KUB 1 VIEWon [...] by: ISRRAEL COOPER Date: 2021 07:38 Normal [facility] XR KUBon 02-27-2021 XR KUB [facility] [place] [address] [place] [address] XRay Report Signed Patient: Jo-Ann Roberts MR#: [id number] 822 : 1960 Acct:[id number] Age/Sex: 60 / F ADM Date: 02/27/21 Loc: [place] Room: Type: [facility] Attending Dr: Adrian Oneal Jr, MD Ordering [...] Eric White M.D.02/27/2021 2:07 PM Dictation Location: [facility]- Transcribed By: SANTIAGO 02/27/211406 Dictated By: Eric White II, MD 02/27/211405 Signed By: 02/27/211406 Normal [facility] COVID-19 FRon 02-25-2021 SARS-CoV-2 (COVID-19) RNA TREVOR+probe Ql (Unsp spec) Negative Normal Negative [facility] Comment on above: Order Comment: Healt hcare Worker?: N Result Comment: Testing for SARS-CoV-2 by RT-PCR This test was developed and its performance characteristics determined by [facility], [employer] and validated at the [facility]. This test has not been FDA cleared [...] is terminated or revoked sooner. PERFORMED BY: [address] [address] [place] [address] PATHOLOGIST PALLIATIVE CARE SPECIALIST DARIA JAQUEZ M.D. Performed By: #### C OVID 19 [facility] #### [facility] [address] COVID-19 Positive/Negativeon 02-25-2021 SARS-CoV-2 (COVID-19) N gene TREVOR+probe Ql (Resp) Negative Negative [facility] Comment on above: Testing for SARS-CoV -2 by RT-PCRThis test was developed and its performance characteristics determined by [facility], [employer] and validated at the [facility]. This test has not been FDA cleared [...] 02-05 Calcium [Mass/Vol] 9.5 mg/dL Normal 8.2-10.2 [facility] Comment on above: Result Comment: PERF ORMED BY: [facility] [address] [place] [address] PATHOLOGIST PALLIATIVE CARE SPECIALIST DARIA JAQUEZ M.D. Performed By: #### B MP, CBC #### [facility] [facility] [address] [place] [address] [place] Chloride [Moles/Vol] 100 mmol/L Normal 95-114 [facility] Comment on above: Performed By: #### B MP, CBC #### [facility] [address] [place] [id number] [place] CO2 [Moles/Vol] 24.7 mmol/L Normal 22.0-30.0 [facility] Comment on above: Performed By: #### B MP, CBC #### [facility] [address] Creatinine [Mass/Vol] 0.89 mg/dL Normal 0.44-1.03 [facility] Comment on above: Performed By: #### B MP, CBC #### [address] Estimated GFR ( Lori > 60 Normal [facility] Comment on above: Result Comment: GFR estimated reference range: According to KDOQI guidelines, <60 ml/min/1.73m2 is sufficient to diagnose a patient with chronic kidney disease. Performed By: #### B MP, CBC #### [facility] [address] Estimated GFR (Non- Am > 60 Normal [facility] Comment on above: Performed By: #### B MP, CBC #### [address] Glucose [Mass/Vol] 93 mg/dL Normal 70-100 [facility] Comment on above: Result Comment: Mobile om Glucose Reference Range is dependent on time and content of last meal. Glucose of more than 200 mg/dL in a nonstressed, ambulatory subject supports the diagnosis of Diabetes Mellitus. ADA recommended reference range Performed By: #### B MP, CBC #### [place] [address] [place] Potassium [Moles/Vol] 4.2 mmol/L Normal 3.5-5.1 [facility] Comment on above: Performed By: #### B MP, CBC #### [facility] [address] [place] [id number] [place] Sodium [Moles/Vol] 139 mmol/L Normal 136-146 [facility] Comment on above: Performed By: #### B MP, CBC #### [address] Urea nitrogen [Mass/Vol] 20 mg/dL Normal 9-23 [facility] Comment on above: Performed By: #### B MP, CBC #### [facility] [address] [place] [address] [place] Basophils Auto (Bld) [#/Vol] on 02-14-2021 Basophils (Bld) [#/Vol] 0.0 10*3/uL 0.0-0.2 [facility] Basophils/100 WBC Auto (Bld) on 02-14-2021 Basophils/100 WBC (Bld) 0.5 % [facility] Blood hemoglobin measurement (mass/volume)on 02-14-2021 Hemoglobin (Bld) [Mass/Vol] 14.3 g/dL 11.8-15.4 [facility] Blood leukocytes automated c ount (number/volume)on 02-14-2021 WBC (Bld) [#/Vol] 5.0 10*3/uL 4.5-11.0 [facility] Complete Blood Count Auto Di ffon 02-14-2021 Basophils (Bld) [#/Vol] 0.0 10*3/uL Normal 0.0-0.2 [facility] Comment on above: Result Comment: PERF ORMED BY: [place] [address] PATHOLOGIST PALLIATIVE CARE SPECIALIST DARIA JAQUEZ M.D. Performed By: #### B MP, CBC #### [address] Basophils/100 WBC (Bld) 0.5 % Normal . [facility] Comment on above: Performed By: #### B MP, CBC #### [place] [address] [place] Eosinophils (Bld) [#/Vol] 0.1 10*3/uL Normal 0.0-0.45 [facility] Comment on above: Performed By: #### B MP, CBC #### [place] [address] [place] Eosinophils/100 WBC (Bld) 1.3 % Normal . [facility] Comment on above: Performed By: #### B MP, CBC #### [place] [address] [place] Erythrocyte distribution width (RBC) [Ratio] 12.8 % Normal 11.9-15.3 [facility] Comment on above: Performed By: #### B MP, CBC #### [address] Hematocrit (Bld) [Volume fraction] 42.9 % Normal 34.0-46.4 [facility] Comment on above: Performed By: #### B MP, CBC #### [address] Hemoglobin (Bld) [Mass/Vol] 14.3 g/dL Normal 11.8-15.4 [facility] Comment on above: Performed By: #### B MP, CBC #### [address] Lymphocytes (Bld) [#/Vol] 1.0 10*3/uL Normal 1.00-4.8 [facility] Comment on above: Performed By: #### B MP, CBC #### [address] Lymphocytes/100 WBC (Bld) 19.9 % Normal . [facility] Comment on above: Performed By: #### B MP, CBC #### [address] MCH (RBC) [Entitic mass] 31.1 pg Normal 24.7-34.3 [facility] Comment on above: Performed By: #### B MP, CBC #### [address] MCV (RBC) [Entitic vol] 93.0 fL Normal 80-100 [facility] Comment on above: Performed By: #### B MP, CBC #### [address] Mean Corpuscular HGB Conc 33.5 g/dL Normal 32.0-35.0 [facility] Comment on above: Performed By: #### B MP, CBC #### [address] Monocytes (Bld) [#/Vol] 0.4 10*3/uL Normal 0.0-0.8 [facility] Comment on above: Performed By: #### B MP, CBC #### [facility] [address] [place] [address] [place] Monocytes/100 WBC (Bld) 7.1 % Normal . [facility] Comment on above: Performed By: #### B MP, CBC #### [facility] [address] [place] [address] [place] Neutrophils (Bld) [#/Vol] 3.6 10*3/uL Normal 1.8-7.7 [facility] Comment on above: Performed By: #### B MP, CBC #### [facility] [address] Neutrophils/100 WBC (Bld) 71.2 % Normal . [facility] Comment on above: Performed By: #### B MP, CBC #### [facility] [address] [place] [address] [place] Nucleated RBC/100 WBC (Bld) [Ratio] 0.3 % Normal 0-0.5 [facility] Comment on above: Performed By: #### B MP, CBC #### [facility] [address] [place] [address] [place] Platelet mean volume (Bld) [Entitic vol] 10.2 fL Normal 6.3-10.7 [facility] Comment on above: Performed By: #### B MP, CBC #### [facility] [address] [place] [address] [place] Platelets (Bld) [#/Vol] 198 10*3/uL Normal 150-450 [facility] Comment on above: Performed By: #### B MP, CBC #### [facility] [address] [place] [address] [place] RBC (Bld) [#/Vol] 4.61 10*6/uL Normal 3.60-5.00 [facility] Comment on above: Performed By: #### B MP, CBC #### [facility] [address] [place] [address] [place] WBC (Bld) [#/Vol] 5.0 10*3/uL Normal 4.5-11.0 [facility] Comment on above: Performed By: #### B MP, CBC #### [address] Creatinine and Glomerular fi ltration rate.predicted panel (S/P/Bld)on 02-14-2021 Creatinine [Mass/Vol] 0.89 mg/dL 0.44-1.03 [facility] ECG 12 lead ECGon 02-14-2021 ECG 12 lead ECG [facility] Main [place] [address] [place] [address] Electrocardiograph Report Signed Patient: Jo-Ann Roberts MR#: [id number] : [id number] Acct:[id number] Age/Sex: 60 / F ADM Date: 02/14/21 Loc: Room: Type: [facility] Attending Dr: Adrian Oneal Jr, MD Ordering Provider: Adrian Oneal Jr, MD, [facility] Date of Service: 02/14/21 ECG/ECG 12 lead ECG: PST urology surgery Copies to: Test Reason : Blood Pressure : / mmHG Vent. Rate : 067 BPM Atrial Rate : 067 BPM P-R Int : 096 ms QRS Dur : 102 ms QT Int : 392 ms P-R-T Axes : 106 076 074 degrees QTc Int : 414 ms Sinus rhythm with short DE Otherwise normal ECG When compared with ECG of 07-NOV-2019 14:31, No significant change was found Confirmed by RALEIGH VOGEL MD ([id number]) on 02/14/2021 9:41:34 PM Referred By: LUIS ENRIQUE Electronically Signed By:RALEIGH VOGEL MD Transcribed By: AZEB Dictated By: Raleigh Vogel MD 02/14/21 102 Signed By: 02/14/21 3423 Normal [facility] Eosinophils Auto (Bld) [#/Vo l]on 02-14-2021 Eosinophils (Bld) [#/Vol] 0.1 10*3/uL 0.0-0.45 [facility] Eosinophils/100 WBC Auto (Bl d)on 02-14-2021 Eosinophils/100 WBC (Bld) 1.3 % [facility] Erythrocyte distribution wid th Auto (RBC) [Ratio]on 02-14-2021 Erythrocyte distribution width (RBC) [Ratio] 12.8 % 11.9-15.3 [facility] Estimated glomerular filtrat ion rate (GFR) non- Americanon 02-14-2021 GFR/1.73 sq M.predicted among non-blacks MDRD (S/P/Bld) [Vol rate/Area] > 60 mL/Min [facility] Hematocrit Auto (Bld) [Volum e fraction]on 02-14-2021 Hematocrit (Bld) [Volume fraction] 42.9 % 34.0-46.4 [facility] Laboratory - Hematology and Cell countson 02-14-2021 Nucleated RBC/100 WBC (Bld) [Ratio] 0.3 % 0-0.5 [facility] Lymphocytes Auto (Bld) [#/Vo l]on 02-14-2021 Lymphocytes (Bld) [#/Vol] 1.0 10*3/uL 1.00-4.8 [facility] Lymphocytes/100 WBC Auto (Bl d)on 02-14-2021 Lymphocytes/100 WBC (Bld) 19.9 % [facility] MCH Auto (RBC) [Entitic mass ]on 02-14-2021 MCH (RBC) [Entitic mass] 31.1 pg 24.7-34.3 [facility] MCHC Auto (RBC) [Mass/Vol]on 02-14-2021 MCHC (RBC) [Mass/Vol] 33.5 g/dL 32.0-35.0 [facility] MCV Auto (RBC) [Entitic vol] on 02-14-2021 MCV (RBC) [Entitic vol] 93.0 fL 80-100 [facility] Monocytes Auto (Bld) [#/Vol] on 02-14-2021 Monocytes (Bld) [#/Vol] 0.4 10*3/uL 0.0-0.8 [facility] Monocytes/100 WBC Auto (Bld) on 02-14-2021 Monocytes/100 WBC (Bld) 7.1 % [facility] Neutrophils Auto (Bld) [#/Vo l]on 02-14-2021 Neutrophils (Bld) [#/Vol] 3.6 10*3/uL 1.8-7.7 [facility] Neutrophils/100 WBC Auto (Bl d)on 02-14-2021 Neutrophils/100 WBC (Bld) 71.2 % [facility] No Panel Informationon 02-14 Estimated GFR () > 60 mL/Min [facility] Comment on above: GFR estimated refere nce range: According to KDOQI guidelines, <60 ml/min/1.73m2 is sufficient to diagnose a patient with chronic kidney disease. Pharmacy Creatinine Clearance (Chem N/A [facility] Platelet mean volume Auto (B ld) [Entitic vol]on 02-14-2021 Platelet mean volume (Bld) [Entitic vol] 10.2 fL 6.3-10.7 [facility] Platelets Auto (Bld) [#/Vol] on 02-14-2021 Platelets (Bld) [#/Vol] 198 10*3/uL 150-450 [facility] RBC Auto (Bld) [#/Vol]on RBC (Bld) [#/Vol] 4.61 10*6/uL 3.60-5.00 [facility] Serum or plasma calcium macario urement (mass/volume)on 02-14-2021 Calcium [Mass/Vol] 9.5 mg/dL 8.2-10.2 [facility] Serum or plasma chloride tylor surement (moles/volume)on 02-14-2021 Chloride [Moles/Vol] 100 mmol/L 95-114 [facility] Serum or plasma glucose macario urement (mass/volume)on 02-14-2021 Glucose [Mass/Vol] 93 mg/dL 70-100 [facility] Comment on above: ADA recommended refe rence [...] (moles/volume)on 02-14-2021 Sodium [Moles/Vol] 139 mmol/L 136-146 [facility] Serum or plasma total carbon dioxide measurement (moles/volume)on 02-14-2021 CO2 [Moles/Vol] 24.7 mmol/L 22.0-30.0 [facility] Serum or plasma urea nitroge n measurement (mass/volume)on 02-14-2021 Urea nitrogen [Mass/Vol] 20 mg/dL 05-30 [facility] Vital Signs Date Time Vital Sign Value Performing Clinician Facility 02-29-2024 11:18-0400 Blood Pressure Location Wu VELEZ [facility] 02-29-2024 11:18-0400 Body temperature 98.6 [degF] Wu VELEZ [facility] 02-29-2024 11:18-0400 Diastolic blood pressure 84 mm[Hg] Wu VELEZ [facility] 02-29-2024 11:18-0400 Heart rate 69 /min Wu VELEZ [facility] 02-29-2024 11:18-0400 Respiratory rate 16 /min Wu VELEZ [facility] 02-29-2024 11:18-0400 Systolic blood pressure 124 mm[Hg] Wu VELE[facility] 07-16-2023 14:59-0500 Body height 165.1 cm Nan Sarabia MD Work Phone: [facility] 07-16-2023 14:59-0500 Body temperature 97.5 [degF] Nan Sarabia MD Work Phone: [facility] 07-16-2023 14:59-0500 Body weight 58.15 kg Nan Sarabia MD Work Phone: [facility] 07-16-2023 14:59-0500 Diastolic blood pressure 70 mm[Hg] Nan Sarabia MD Work Phone: [facility] 07-16-2023 14:59-0500 Heart rate 80 /min Nan Sarabia MD Work Phone: [facility] 07-16-2023 14:59-0500 Respiratory rate 16 /min Nan Sarabia MD Work Phone: [facility] 07-16-2023 14:59-0500 SaO2% (BldA) [Mass fraction] 100 % Nan Sarabia MD Work Phone: [facility] 07-16-2023 14:59-0500 Systolic blood pressure 159 mm[Hg] Nan Sarabia MD Work Phone: [facility] 06-19-2023 14:45-0400 Body height 161.29 cm Juma Ball Other [facility] Other 06-19-2023 14:45-0400 Body mass index (BMI) [Ratio] 22.14 kg/m2 Juma Ball Other [facility] Other 06-19-2023 14:45-0400 Body weight 57.61 kg Juma Ball Other [facility] Other 06-19-2023 14:45-0400 Diastolic blood pressure 79 mm[Hg] Juma Ball Other [facility] Other 06-19-2023 14:45-0400 Respiratory rate 12 /min Juma Ball Other [facility] Other 06-19-2023 14:45-0400 Systolic blood pressure 156 mm[Hg] Juma Ball Other [facility] Other 10-28-2022 16:30-0500 Body height 161.29 cm Karina Carlson Other [facility] Other 10-28-2022 16:30-0500 Body mass index (BMI) [Ratio] 21.97 kg/m2 Karina Carlson Other [facility] Other 10-28-2022 16:30-0500 Body temperature 97.3 [degF] Karina Carlson Other [facility] Other 10-28-2022 16:30-0500 Body weight 57.15 kg Karina Carlson Other [facility] Other 10-28-2022 16:30-0500 Respiratory rate 19 /min Karina Carlson Other [facility] Other 10-28-2022 16:30-0500 SaO2% (BldA) [Mass fraction] Karina Carlson Other [facility] Other 08-06-2022 15:15-0500 Blood Pressure Location Wu VELE[facility] 08-06-2022 15:15-0500 Diastolic blood pressure 80 mm[Hg] Wu VELEZ [facility] 08-06-2022 15:15-0500 Heart rate 72 /min Wu VELEZ [facility] 08-06-2022 15:15-0500 Systolic blood pressure 141 mm[Hg] Wu VELEZ [facility] 06-16-2022 15:31-0400 Body height 165.1 cm Nan Sarabia MD Work Phone: [facility] 06-16-2022 15:31-0400 Body temperature 97.39 [degF] Nan Sarabia MD Work Phone: [facility] 06-16-2022 15:31-0400 Body weight 55.97 kg Nan Sarabia MD Work Phone: [facility] 06-16-2022 15:31-0400 Diastolic blood pressure 67 mm[Hg] Nan Sarabia MD Work Phone: [facility] 06-16-2022 15:31-0400 Heart rate 82 /min Nan Sarabia MD Work Phone: [facility] 06-16-2022 15:31-0400 Respiratory rate 16 /min Nan Sarabia MD Work Phone: [facility] 06-16-2022 15:31-0400 SaO2% (BldA) [Mass fraction] 99 % Nan Sarabia MD Work Phone: [facility] 06-16-2022 15:31-0400 Systolic blood pressure 147 mm[Hg] Nan Sarabia MD Work Phone: [facility] 03-12-2022 10:42-0400 Blood Pressure Location Wu VELEZ [facility] 03-12-2022 10:42-0400 Diastolic blood pressure 89 mm[Hg] Wu VELEZ [facility] 03-12-2022 10:42-0400 Heart rate 85 /min Wu VELEZ [facility] 03-12-2022 10:42-0400 Respiratory rate 16 /min Wu VELEZ [facility] 03-12-2022 10:42-0400 Systolic blood pressure 139 mm[Hg] [facility] Encounters Encounter Date Encounter Type Care Provider Facility Start: 03-03-2025 ambulatory Wu VELEZ Facili ty:[facility] [place] Start: 04-14-2024 ambulatory Wu VELZE Facili ty:[id number] Start: 02-29-2024 End: 02-29-2024 ambulatory Wu VELEZ Facility:[facility] Start: 02-29-2024 End: 02-29-2024 Patient encounter procedure [facility] Start: 07-17-2023 End: 07-17-2023 ambulatory Juma Buckner Other [facility] Other Start: 07-17-2023 Telephone encounter Juma Buckner [facility] Start: 07-16-2023 End: 07-17-2023 [facility] Start: 07-16-2023 End: 07-16-2023 ambulatory Nan Sarabia MD Work Phone: Hematology/Oncology Comment on above: Malignant neoplasm o f upper-outer quadrant of right breast in female, estrogen receptor positive (HCC) (Primary Dx); Age-related osteoporosis without current pathological fracture Start: 07-16-2023 End: 07-16-2023 Patient encounter procedure Nan Sarabia MD Work Phone: [facility] Start: 06-19-2023 End: 06-19-2023 ambulatory Juma Buckner Other [facility] Other Start: 06-19-2023 Encounter for genera l adult medical examination without abnormal findings Juma Buckner [facility] Start: 06-19-2023 Periodic preventive med est patient 40-64yrs Juma Buckner [facility] Start: 04-27-2023 Telephone encounter Dipti Ulloa last repairer/Oncology Comment on above: Orders Start: 10-28-2022 End: 10-28-2022 ambulatory Karina Aldo Other [facility] Other Start: 10-28-2022 Office outpatient ne w 20 minutes Karina Aldo [facility] Start: 08-06-2022 End: 08-06-2022 Patient encounter procedure Wu VELEZ [facility] Start: 06-16-2022 End: 06-16-2022 ambulatory Nan Sarabia MD Work Phone: Hematology/Oncology Comment on above: Malignant neoplasm o f upper-outer quadrant of right breast in female, estrogen receptor positive (HCC) (Primary Dx); Age-related osteoporosis without current pathological fracture Start: 06-16-2022 End: 06-16-2022 Patient encounter procedure Nan Sarabia MD Work Phone: [facility] Start: 04-01-2022 End: 04-01-[address] WU VELEZ Facility:[facility] Start: 03-31-2022 End: 04-01-[address] WU VELEZ Facility:[facility] Start: 03-12-2022 End: 03-12-2022 Patient encounter procedure Wu VELEZ [facility] Start: 02-27-2022 End: 02-28-[address] JUMA BUCKNER Facility:[facility] Start: 01-27-2022 Refill Ryan Daniels APRN.CNP Work Phone: Hematology/Oncology Comment on above: Refill Request Start: 04-26-2021 End: 04-26-[address] WU VLEEZ Facility:[facility] Start: 2021 End: [address] WU VELEZ Facility:[facility] Start: 02-25-2021 End: 02-25-2021 Patient encounter procedure Adrian Oneal Jr Work Phone: -Pre-Surgical Testing Start: 02-14-2021 End: 02-14-2021 Patient encounter procedure Adrian Oneal Jr Work Phone: -Pre-Surgical Testing Procedures Date Procedure Procedure Detail Performing Clinician Start: 05-02-2022 Mammography Dipti shearer RN Start: 06-17-2021 Adult depression scr eening assessment Ryan Daniels AIRFRAME TECHNICAL OFFICER.COMPUTER NETWORKER Work Phone: Start: 04-30-2021 Mammography Ryan ledesma AIRFRAME TECHNICAL OFFICER.COMPUTER NETWORKER Work Phone: Start: 2021 Extracorporeal shock wave lithotripsy of calculus of kidney Wu VELEZ Start: 11-07-2019 Cystoscopy Wu MATHEWS Appendectomy Wu VELEZ Breast structure (cele dy structure) Wu VELEZ Tonsillectomy Wu VELEZ Plan of Treatment Date Care Activity Detail Author Start: 06-17-2024 DIABETES SCREEN DIABETES SCREEN [facility] Start: 06-17-2024 Diabetes Screening Diabetes Screenin g [facility] Start: 05-04-2024 Mammography Mammogram Screening [facility] Start: 05-08-2023 Influenza vaccination [facility] Start: 05-02-2023 Mammography MAMMOGRAM [facility] Start: 09-07-2022 DEPRESSION ASSESSMENT DEPRESSION ASS [facility] Start: 06-17-2022 Adult depression screening assessment DEPRESSION SCREENING [facility] Start: 05-08-2022 Influenza vaccination C [facility] Start: 04-30-2022 Mammography MAMMOGRAM [facility] Start: 09-07-2021 [facility] Start: 2020 RSV Vaccine (1 - 1-d ose 60+ series) RSV Vaccine (1 - 1-dose 60+ series) [facility] Start: 2010 SHINGRIX VACCINE (1 of 2) SHINGRIX VACCINE (1 of 2) [facility] Start: 2005 COLOGUARD (FIT-DNA) COLOGUARD (FIT-D NA) [facility] Start: 2005 Colonoscopy COLONOSCOPY [facility] Start: 2005 COLORECTAL CANCER SCREENING COLORECTAL CANCER SCREENING [facility] Start: [address] COLONOGRAPHY [facility] Start: 2005 FECAL OCCULT BLOOD FECAL OCCULT BLOO D [facility] Start: 2005 Lipid 1996 panel - S gisell or Plasma Lipid Screening [facility] Start: 2005 LIPID SCREEN LIPID SCREEN [facility] Start: 2005 SIGMOIDOSCOPY SIGMOIDOSCOPY [facility] Start: 1990 HPV TESTING HPV TESTING [facility] Start: 1981 PAP TESTING PAP TESTING [facility] Start: 1979 Urine microalbumin profile [facility] Start: 1978 HEPATITIS C SCREENING HEPATITIS C SC REENING [facility] Start: 1978 HIV SCREENING HIV SCREENING [facility] Start: 1966 PNEUMOCOCCAL (1 - PCV) PNEUMOCOCCAL (1 - PCV) [facility] Start: 1965 COVID-19 VACCINE (#1) COVID-19 VACCI NE (#1) [facility] Start: 1960 COVID-19 VACCINE (#1) COVID-19 VACCI NE (#1) [facility] End: 07-16-2023 Diagnostic mammography computer-aided detcj bi MEMO DIAGNOSTIC BILAT Radiology Routine Malignant neoplasm of upper-outer quadrant of right breast in female, estrogen receptor positive (HCC) 1 Occurrences starting 06/16/2022 until 07/16/2023 [facility] Work Phone: Comment on above: 1 Occurrences starti ng 06/16/2022 until 07/16/2023 End: 08-14-2024 DXA-FOREARM SKELETON DXA-FOREARM SKELETON Radiology Routine Age-related osteoporosis without current pathological fracture Malignant neoplasm of upper-outer quadrant of right breast in female, estrogen receptor positive (HCC) 1 Occurrences starting 07/16/2023 until 08/14/2024 [facility] Work Phone: Comment on above: 1 Occurrences starti ng 07/16/2023 until 08/14/2024 End: 05-26-2024 MEMO SCREENING MEMO SCREENING Radiology Routine Encounter for screening mammogram for malignant neoplasm of breast 1 Occurrences starting 04/27/2023 until 05/26/2024 [facility] Work Phone: Comment on above: 1 Occurrences starti ng 04/27/2023 until 05/26/2024 End: 08-14-2024 MEMO SCREENING W FAISAL MEMO SCREENING W FAISAL Radiology Routine Age-related osteoporosis without current pathological fracture Malignant neoplasm of upper-outer quadrant of right breast in female, estrogen receptor positive (HCC) 1 Occurrences starting 07/16/2023 until 08/14/2024 [facility] Work Phone: Comment on above: 1 Occurrences starti ng 07/16/2023 until 08/14/2024 [facility] Payers Date Payer Category Payer Unknown [id number] 2012 Unknown MMO MMO [employer] [id number] 2012-Present [phone] [address] [place] [address] PPO [id number] 1960 Unknown [id number] 1960 Unknown [id number] 1960 Unknown [id number] 1960 Unknown [id number] 1960 Unknown [id number] 1960 Unknown [id number] 1960 Unknown [id number] 1959 Unknown [id number] Self-pay Self Pay [id number] Social History Date Type Detail Facility Start: 02-14-2021 End: 02-29-2024 Tobacco smoking status NHIS Never smoked tobacco (finding) [facility] Start: 1960 Sex Assigned At Female F [facility] Start: 04-25-2014 Tobacco use and exposure Smokeless tobacco non-user [facility] Start: 06-17-2021 End: 06-16-2022 Alcohol intake Current non-drinker of alcohol (finding) [facility] Start: 1960 Sex Assigned At Not on file [facility] Start: 06-16-2022 End: 07-16-2023 Sex Assigned At Female [facility] Start: 06-06-2022 End: 06-16-2022 Exposure to SARS-CoV-2 (event) Not sure [facility] Tobacco smoking status Never [facility] Start: 06-16-2022 End: 07-16-2023 History of Social function [facility] Functional Status Date Assessment Result Facility 02-29-2024 Functional Status N/A [facility] 08-06-2022 Functional Status N/A [facility] 03-12-2022 Functional Status N/A [facility] Clinical Notes 09-02-2012 to 02-29-2024 Note [...] include: ?8 oz (237 mL) of milk, xymuaim-gqdapgmvabri-rcoqs milk, and calcium-fortifiedfruit juice. Calcium-fortified means that [...] ?Spinach (cooked), rhubarb, beets, sweet potatoes, and Cymraes chard. ?Peanuts. ?Potato chips, israeli fries, and baked potatoes with skin on. ?Nuts and nut products. ?Chocolate. If you regularly take a diuretic medicine, make sure to eat at least 1 or 2 servings of fruits or vegetables that are high in potassium each day. These include: ?Avocado. ?Banana. ?Hyde, prune, carrot, or tomato juice. ?Baked potato. [...] magnesium, fish oil, or vitamin B6. Take pzek-zpi-wgycisj and prescription medicines only as told by [...] Casseroles. Pizza. Lasagna. Frozen meals. Potato chips. Armenian fries. The items listed above may not [...] provider. Document Revised: 12/04/2022 Document Reviewed: 12/04/2022 [employer] Patient Education 2022 Biomedical Innovation. Follow Up Care 08/06/2022 16:16:25 With:PATRICIA STRICKLAND, TIM Herbert Address: [facility] [address] [place] [address]- [phone] When: Unknown Comments:1 yr w/ KUB [facility] 07-17-2023 Evaluation note Encounter Date Diagnosis Assessment Notes Jul, Malignant neoplasm of upper-outer quadrant of right female breast (ICD-10 - C50.411) Lumpectomy 2011, adjuvent chemotherapy, adjuvent radiation therapy, completed 9 years hormone therapy Jul, Estrogen receptor positive status [ER+] (ICD-10 - Z17.0) [facility] Other [id number] Nurse Note* Akua Jorge MA - 07/16/2023 3:02 PM EST Patient would like opinion on right hand pinky finger she has a bump her PCP looked at it said it was probably a cyst but she would still like your opinion, it has not changed at all. Akua Jorge MA documented [facility]23 NoteHNO ID: [id number] Author: Nan Sarabia MD Service: ? Author [...] Diagnosis Date Breast cancer (HCC) Right; ER+ DE- PAST SURGICAL HISTORY: PAST SURGICAL HISTORY Procedure [...] 197 RADIOLOGY/OTHER STUDIES: 05/04/2023 Bilateral diagnostic mammogram ([employer]) Stable postsurgical change in the right breast. No mammographic evidence of malignancy.. Routine follow-up in 1 year recommended. 05/02/2022 Bone density DEXA ([employer]) Osteoporosis. Max T score -2.6 left femoral neck, left femur, and right femur. ASSESSMENT/PLAN: 1. 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 No mammographic evidence of malignancy.. Routine follow-up in 1 year recommended. 05/02/2022 Bone density DEXA ([employer]) Osteoporosis. Max T score -2.6 left femoral neck, left femur, and right femur. ASSESSMENT/PLAN: 1. 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 Buckner documented in this encounterK[facility]-13-[facility]23 Evaluation note* Encounter Date Diagnosis Assessment Notes [...] to the patient. Recommend referral for excision. [facility] Other 08-21-2023 Miscellaneous Notes* Telephone Encounter - Ayala James - 04/27/2023 4:23 PM EDT Received order at front desk host. Faxed order April 27, 2023 4:23 PM [...] pended for signature. PSS: Please fax to [phone] Thanks. Dipti Ulloa RN documented in this encounterK[facility]02-21-2023 Evaluation note* Encounter Date Diagnosis Assessment Notes [...] to ER immediately, Conjunctivitis material was printed [facility] Other 11-30-2022 Hospital Discharge instructions Patient Education [...] include: ?Spinach. ?Rhubarb. ?Beets. ?Potato chips and israeli fries. ?Nuts. If you regularly take a diuretic medicine, make sure to eat at least 1 2 fruits or vegetables high in potassium each day. These include: ?Avocado. ?Banana. ?Hyde, prune, carrot, or tomato juice. ?Baked potato. [...] Casseroles. Pizza. Lasagna. Frozen meals. Potato chips. Armenian fries. Summary You can reduce your risk [...] 12/19/2011 Document Revised: 12/14/2019 Document Reviewed: 08/04/2017 [employer] Patient Education 2020 Biomedical Innovation. Follow Up Care 04/30/2022 15:39:48 With:PATRICIA STRICKLAND, Wu Barksdale, URL Address: [facility] [address], [place] [address]- When: Unknown [facility] 10-10-2022 History of Present illness Narrative* [...] Diagnosis Date Breast cancer (HCC) Right; ER+ DE- PAST SURGICAL HISTORY: PAST SURGICAL HISTORY Procedure [...] 197 RADIOLOGY/OTHER STUDIES: 05/02/2022 Bone density DEXA ([employer]) Osteoporosis. Max T score -2.6 left femoral neck, left femur, and right femur. And left femur 05/02/2022 Bilateral diagnostic mammogram ([employer]) Stable postsurgical change in the right breast. No mammographic evidence of malignancy or significant change. Routine follow-up in 1 year recommended. ASSESSMENT/PLAN: 1. 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 Buckner documented in this encounterK[facility]07-06-2022 Hospital Discharge instructions Patient Education 03/12/2022 11:25:34 [...] Follow these instructions at home: Medicines Take kbrj-wfd-mbdfmjb and prescription medicines only as told by [...] 08/24/2006 Document Revised: 01/10/2020 Document Reviewed: 01/10/2020 [employer] Patient Education 2019 Biomedical Innovation. Follow Up Care 02/13/2022 09:45:15 With:PATRICIA STRICKLAND, TIM Herbert Address: [facility] [address] , [place] [address]- When:3 months Comments:w/metabolic workup [facility] 05-23-2022 Miscellaneous Notes* Telephone Encounter - Ryan Daniels APRN.CNP - 01/27/2022 4:44 PM EDT The following approved medication requests have been refused. Refused Prescriptions Disp Refills anastrozole (ARIMIDEX) 1 mg tablet [Pharmacy Med Name: ANASTROZOLE TABS 1MG] 90 tablet 3 Sig: TAKE 1 TABLET DAILY OFELIA: No Refused By: RYAN DANIELS Reason for Refusal: A Refill not appropriate Ryan Daniels APRN.COMPUTER NETWORKER documented in this encounterK[facility]12-27-2012 History of Past illness Narrative* Problem Noted Date Resolved Date Breast CA 09/02/2012 09/16/2018 Overview: Right; ER+ DE-; HER2 - documented as of this encounter (statuses as of 01/28/2022) [facility] History of Past illness Narrative* Problem Noted Date Resolved Date Breast CA 09/02/2012 09/16/2018 Overview: Right; ER+ DE-; HER2 - documented as of this encounter (statuses as of 06/17/2022) [address]27-2012 History of Past illness Narrative* Problem Noted Date Diagnosed Date Resolved Date Breast CA 09/02/2012 09/16/2018 Overview: Right; ER+ DE-; HER2 - documented as of this encounter (statuses as of 04/28/2023) [place] [address]-27-2012 History of Past illness Narrative* Problem Noted Date Diagnosed Date Resolved Date Breast CA 09/02/2012 09/16/2018 Overview: Right; ER+ DE-; HER2 - documented as of this encounter (statuses as of 07/17/2023) [facility] Future Appointments Appointment Date:06/23/2022 03:00:00 PM Scheduled Provider:Wu VELEZ MD Location:[facility] Appointment Type:URO Office Visit [facility] Evaluation + Plan note Future Appointments Appointment Date:08/10/2023 02:45:00 PM Scheduled Provider:Wu VELEZ MD Location:[facility] Appointment Type:URO Office Visit [facility] [place] [facility] Evaluation + Plan note Future Appointments Appointment Date:03/03/2025 08:45:00 AM Scheduled Provider:Wu VELEZ MD Location:[facility] Appointment Type:URO Office Visit [facility] evaluation noteNo assessment information available [facility]* Diagnosis Malignant neoplasm of upper-outer quadrant of right breast in female, estrogen receptor positive (HCC)- Primary Age-related osteoporosis without current pathological fracture Senile osteoporosis documented in this encounter [facility] note* Diagnosis Encounter for screening mammogram for malignant neoplasm of breast- Primary Other screening mammogram documented in this encounter [facility] note* Diagnosis Malignant neoplasm of upper-outer quadrant of right breast in female, estrogen receptor positive (HCC)- Primary Age-related osteoporosis without current pathological fracture Senile osteoporosis documented in this encounter [facility] general Narrative - Reported* Type Description Date Medical History Breast cancer Surgical History appendectomy Surgical History tonsillectomy Surgical History lumpectomy, right breast x2 201 2 Hospitalization History see above surgical histo LISNR Other History general Narrative - Reported* Type Description Date Medical History Breast cancer Medical History Nephrolithiasis Medical History Osteopenia of lumbar spine Surgical History appendectomy Surgical History tonsillectomy Surgical History lumpectomy, right breast x2 201 2 Hospitalization History see above surgical histo ry [facility] Other Hospital course Narrative No data available for this section [facility] [place] [facility] Progress note No data available for this section [facility] [employer] Reason for referral (narrative)* Diagnostic Procedure Only (Routine) - Pending Review Specialty Diagnoses / Procedures Referred By Contac t Referred To Contact [facility] Diagnoses Malignant neoplasm of upper-outer quadrant of right breast in female, estrogen receptor positive (HCC) Procedures MEMO DIAGNOSTIC BILAT DIAGNOSTIC MAMMOGRAPHY COMPUTER-AIDED DETCJ Nan Miranda MD [address] [place] [address] [place] [address] [facility] [address] [place] [phone] Referral ID Status Reason Start Date Expiration Date Visits Requested Visits Authorized [id number] Pending Review Auto-Generat ed Referral 07/16/2023 1 1 T [facility] for referral (narrative)* Diagnostic Procedure Only (Routine) - Pending Review Specialty Diagnoses / Procedures Referred By Contac t Referred To Contact [facility] Diagnoses Encounter for screening mammogram for malignant neoplasm of breast Procedures MEMO SCREENING SCREENING MAMMOGRAPHY BI 2-VIEW BREAST INC Nan Chau MD [address] [place] [address] [place] [address] [facility] [address] [place] [phone] Referral ID Status Reason Start Date Expiration Date Visits Requested Visits Authorized [id number] Pending Review Auto-Generat ed Referral 04/27/2023 05/26/2024 1 1 T [facility] for referral (narrative)* Diagnostic Procedure Only (Routine) - Pending Review Specialty Diagnoses / Procedures Referred By Contac t Referred To Contact XR IMAGING Diagnoses Age-related osteoporosis without current pathological fracture Malignant neoplasm of upper-outer quadrant of right breast in female, estrogen receptor positive (HCC) Procedures DXA-FOREARM SKELETON DXA BONE DENSITY STUDY 1/>SITES APPENDICLR Nan Morales MD [address] [place] [address] [place] [address] [facility] Referral ID Status Reason Start Date Expiration Date Visits Requested Visits Authorized [id number] Pending Review Auto-Generat ed Referral 07/16/2023 08/14/2024 [...] BI 2-VIEW BREAST INC Nan Chau MD [address] [place] [address] [place] [address] [facility] [address] [place] [phone] Referral ID Status Reason Start Date Expiration Date Visits Requested Visits Authorized [id number] Pending Review Auto-Generat ed Referral 07/16/2023 08/14/2024 1 1 [facility] Chief Complaint and Reason for Visit Chief [...] section and content) DATE CREATED AUTHOR 10/24/2021 [facility] DATE CREATED AUTHOR AUTHOR'S ORGANIZ ATION 04/08/2022 [facility] DATE CREATED AUTHOR AUTHOR'S ORGANIZ ATION 07/18/2023 [facility] DATE CREATED AUTHOR AUTHOR'S ORGANIZ ATION 03/05/2024 [facility] Source Comments (unrecognize d section and content) In the event this informatio n is protected by the Federal Confidentiality of Alcohol and Drug Abuse Patient Records regulations: The Federal rules restrict any use of the information to criminally investigate or prosecute any alcohol or drug abuse patient.[facility] the event this information is protected by the Federal Confidentiality of Alcohol and Drug Abuse Patient Records regulations: The Federal rules restrict any use of the information to criminally investigate or prosecute any alcohol or drug abuse patient.[facility] the event this information is protected by the Federal Confidentiality of Alcohol and Drug Abuse Patient Records regulations: The Federal rules restrict any use of the information to criminally investigate or prosecute any alcohol or drug abuse patient.[facility] the event this information is protected by the Federal Confidentiality of Alcohol and Drug Abuse Patient Records regulations: The Federal rules restrict any use of the information to criminally investigate or prosecute any alcohol or drug abuse patient.[facility] Reason for Visit (unrecogniz ed section and content) Reason Comments Refill Request Reason Comments Breast Cancer Reason Comments Orders Reason Comments Breast Cancer 1 year follow up Care Teams (unrecognized sec tion and content) [employer] As[employer] Relationship Specialty Start Date End Date Samm Palmer PCP - General Family Practice 01/15/12 [employer] Relationship Specialty Start Date End Date Juma Buckner, DO [address] [place] [address] PCP - General Internal Medicine 06/16/22 [employer] Relationship Specialty Start Date End Date Juma Buckner, DO [address] [place] [address] PCP - General Internal Medicine 06/16/22 [employer] Relationship Specialty Start Date End Date Juma Buckner DO [address] [place], [place] [id number] PCP - General Internal Medicine 06/16/22 FOR [...] BE BASED ON THE PRIMARY CLINICAL RECORDS. [facility]. provides no warranty or guarantee of the accuracy or completeness of information in this document.
[2024-04-14] MEDS: CIPROFLOXACIN IN 5 % DEXTROSE 400 MG/200 ML PREMIX 200 MG IV (09:18)
[2024-04-14] MEDS: LACTATED RINGER'S SOLUTION 1,000 ML 50 ML IV (09:18)
--- NOTE | 2024-04-14 10:17 | P.URON_ITS ---
Urology Surgery Operative Note Operative Note Procedure Date: 04/14/24 Time Out Performed: yes Pre-op Diagnosis: Right nephrolithiasis Post-op Diagnosis: same as pre-op Procedures performed: 1. Right ESWL. Anesthesia: General-LMA Primary Surgeon: Wu Velez Complications: None Estimated blood loss (mL): 0 Findings: Nonobstructing right renal calculus; approximately 6 to 7 mm Specimens: None Drains: None Indications for Procedures: This lady has recurrent nephrolithiasis now on her right side. It is a nonobstructing 6 to 7 mm stone. She now presents for right ESWL. She has signed an informed consent after risks were explained. Some of these risks include bleeding, perinephric hematoma, infection and anesthesia to name a few. Detailed description of Procedure: The patient was brought to the Operating Room and placed on Siemens electromagnetic lithotripsy treatment table in the supine position. SCDs were placed on their lower extremities and turned on and functioning during the entire case. Timeout was done by all parties in the room. We all agreed upon the patient's identification and the planned procedures for this patient. General Anesthesia was then administered via LMA. Treatment head was then brought to the patient's right side. While using flourscopy the stone was identified and lined up into the crosshairs. We then began applying shocks at power level 2.0. We increased to a maximum power level of 3.5. 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 It did not start to actually fragment and dispersing until about 1500 shocks were administered. At around 2000 shocks she began experiencing ectopy. We change position but the ectopy persisted and therefore we stopped the procedure temporarily. We then started the procedure back up after she was fully gated. We then finished our last thousand shocks while being gated. This was very safe. Fluoroscopy revealed that the stone slowly was fragmenting. We applied a total of 3000 shocks. Our last fluoroscopic image revealed some remaining formed stone albeit very light in density. She was then transferred to a rkiel bed and wheeled to PACU in stable condition.
--- NOTE | 2024-04-14 11:28 | PC.NURSE ---
Denies urge to void
--- NOTE | 2024-04-14 11:48 | PC.NURSE ---
Up to bathroom and voided dark red urine with tiny clots noted; strained and negative fo calculi
== END 2024-04-14 11:47 | disposition home or self-care (01) ==
PROVIDERS: PCP Internal Medicine; Visit Provider Urology
PROC: (CPT 873; principal; 2024-04-14 09:40)
DX: N20.0 Calculus of kidney (principal); Z85.3 Personal history of malignant neoplasm of breast; R31.9 Hematuria, unspecified
CPT/HCPCS: 50590; 36415; 74018; J0744; J1885; J2250; J2405; J2704; J3010

== ENCOUNTER 2024-04-22 09:02 | Outpatient (OUT) | payer OTHER, SELFPAY ==
--- NOTE | 2024-04-22 09:10 | XR_ITS ---
The [address] [address] Patient Name: ALBERT ABREU MRN: [id number] date: 1960 Sex: F Assigned Patient Location: [facility] Current Patient Location: Accession/Order Number: [id number] Exam Date: 04/22/2024 09:10 Report Date: 04/25/2024 10:13 At the request of: ROLAND GOMEZ Procedure: XR abdomen 1V EXAMINATION: XR abdomen 1V HISTORY: Kidney Stones N20.0 COMPARISON: XR abdomen 04/14/2024 FINDINGS: KIDNEY/URETER - RIGHT: Stable 6 cm stone projecting over right kidney. KIDNEY/URETER - LEFT: No visible renal or ureteral calcifications. PELVIS: New 6 mm hyperdensity projecting over midline mid to lower pelvis. Stable lower right pelvic calcifications favoring phleboliths. BOWEL: No abnormal dilation or deviation. BONES: No acute abnormality. OTHER: Negative. No abnormal gaseous collections. XR/XR abdomen 1V IMPRESSION: 1. Grossly stable right nephrolithiasis. 2. New 6 mm calcification projecting over midline lower pelvis of uncertain etiology. This could represent a new bladder stone or bowel content. Electronically authenticated by: ISRRAEL COOPER Date: 04/25/2024 10:13
--- OUTSIDE RECORDS SUMMARY | 2024-04-22 09:12 | XMS_ITS | CCD ---
Author Organization [facility] Care Team Providers Care 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 Name Role Phone Adrian Oneal Jr Attending Provider [phone] Juma Buckner Primary Care Provider Samm Palmer Primary Care Provider [phone] JUMA BUCKNER Primary Care Physician PATRICIA, DR WATKINS Admitting Unavailable VELEZ, DR WATKINS Attending Unavailable VELEZ, DR WATKINS Consulting Unavailable VELEZ, DR WATKINS Attending Unavailable VELEZ, DR WATKINS Consulting Unavailable VELEZ, DR WATKINS Admitting Unavailable BALL, DR GREEN Primary Care Unavailable KENNETH, DR ISRRAEL Barksdale Consulting Unavailable GILLES ROD Consulting Unavailable VELEZ, DR WATKINS Admitting Unavailable DUDLEY, DR GREEN Primary Care Unavailable VELEZ, DR WATKINS Attending Unavailable PATRICIA, DR WATKINS Consulting Unavailable VELEZ, DR WATKINS [...] VELEZ Attending Unavailable Wu VELEZ Attending Unavailable DO Juma Buckner Primary Care Provider [phone] DO Juma Buckner Attending Provider Juma Buckner Attending Unavailable Juma Buckner Primary Care Unavailable Juma Buckner Admitting Unavailable Allergies Allergy Classification Reported Allergen(s) Allergy Type Date of Onset Reaction(s) Facility Cephalosporins (antibiotic) (1 source) Cephalexin Drug Allergy 1 [facility] (10 sources) Cephalexin; Translations: [cephalexin] Drug Allergy 7 Unknown, Weal (disorder) [facility] (5 sources) Cephalexin; Translations: [Keflex] Drug Allergy [facility] Repository (1 source) Cephalexin Drug Allergy 3 [facility] Repository Medications Current Medications Medication Drug Class(es) Dates Sig (Normalized) Sig (Original) Calcium (6 sources) Phosphate Binder, Calcium Start: 10-27-2019 Calcium Calcium, Oral, Daily Start Date: 10/27/19 Status: Ordered Calcium Active calcium carbonate 1250 mg / cholecalciferol 0.01 mg oral tablet (2 sources) Vitamin D Start: 02-14-2021 Calcium Carbonate-Vitamin D3 (Calcium 500 + D) 500 mg(1,250mg) -400 unit Tablet Active 2 TAB PO Daily at bedtime February 14, 2021 10:30am ciprofloxacin 500 mg oral tablet (3 sources) Quinolone Antimicrobial Start: 02-27-2021 take 1 tablet by mouth every twelve hours Ciprofloxacin Hcl (Cipro) 500 mg tablet Active 500 MG PO Q12H 6 February 27, 2021 12:00am Start: 11-07-2019 End: 02-14-2021 take 500 mg by mouth every twelve hours Ciprofloxacin Hcl Discontinued 500 MG PO Q12H November 07, 2019 6:27pm February 14, 2021 10:32am Dexamethasone / Neomycin / Polymyxin B (3 sources) Aminoglycoside Antibacterial, Polymyxin-class Antibacterial, Corticosteroid Start: 10-28-2022 Maxitrol 3.5-43405-1.1 apply directly under left eyelashes Ophthalmic Three times a day for 5 days Oct, Active Start: 10-28-2022 Maxitrol 3.5-1 0000-0.1 apply directly under left eyelashes Ophthalmic Three times a day for 5 days Oct, Active ibuprofen 600 mg oral tablet (2 sources) Nonsteroidal Anti-inflammatory Drug Start: 11-07-2019 take 400 mg by mouth once daily Ibuprofen Active 400 MG PO Daily November 07, 2019 4:08pm ketorolac tromethamine 10 mg oral tablet (3 sources) Nonsteroidal Anti-inflammatory Drug, Cyclooxygenase Inhibitor Start: 02-27-2021 take 10 mg by mouth every six hours Ketorolac Active 10 MG PO Q6H 20 5 February 27, 2021 12:00am Start: 11-07-2019 End: 02-14-2021 take 10 mg by mouth every six hours Ketorolac Discontinued 10 MG PO Q6H 10 15 November 07, 2019 6:27pm February 14, 2021 10:31am potassium citrate 10 meq extended release oral tablet (1 source) Start: 02-29-2024 End: 02-23-2025 potassium CITRATE 10 mEq ER Tab 20 mEq, 2 tab(s), Oral, BID for 30 day(s), 120 tab(s), Refill(s) 11, [id number], 165, cm, 02/29/24 11:29:00 EDT, Height/Length Dosing, 58.5, kg, 02/29/24 11:29:00 EDT, Weight Dosing Start Date: 02/29/24 Stop Date: 02/23/25 Status: Ordered Vitamin D (2 sources) Start: 08-06-2022 Vitamin D Inte rnational_Unit, Oral, qWeek Start Date: 08/06/22 Status: Ordered Completed/Discontinued Medications Medication Drug Class(es) Dates Sig (Normalized) Sig (Original) anastrozole 1 mg oral tablet (6 sources) Aromatase Inhibitor Start: 11-07-2019 anastrozole (ARIMIDEX) [...] a day for 30 day(s) January, Not-Taking K-Effervescent 25 mEq oral tablet, effervescent (1 source) Start: 08-06-2022 take 1 tablet by mouth twice daily K-Effervescent 25 mEq oral tablet, effervescent 25 mEq = 1 tab(s), Oral, BID, # 180 tab(s), Refills(s) 3, Pharmacy: [id number], 165, cm, 08/06/22 15:18:00 EST, Height/Length Dosing, 56, kg, 08/06/22 15:18:00 EST, Weight Dosing Start Date: 08/06/22 Status: Ordered nitrofurantoin, macrocrystals 25 mg / nitrofurantoin, monohydrate 75 mg oral capsule (2 sources) Nitrofuran Antibacterial Start: 11-07-2019 End: 02-14-2021 take 100 mg by mouth twice daily Nitrofurantoin Monohyd/M-Cryst Discontinued 100 MG PO Twice daily November 07, 2019 4:08pm February 14, 2021 10:31am potassium bicarbonate 25 meq effervescent oral tablet (4 sources) Start: 03-30-2023 KLOR-CON/EF 25 mEq disintegrating tablet predniSONE (3 sources) prednisone Not-Taking tamsulosin hydrochloride 0.4 mg oral capsule (2 sources) alpha-Adrenergic Baldo Start: 11-07-2019 End: 02-14-2021 take 0.4 mg by mouth once daily Tamsulosin Discontinued 0.4 MG PO Daily November 07, 2019 4:08pm February 14, 2021 10:31am Problems Active Problems Problem Classification Problem Date Documented Da te Episodic/Chronic Abdominal pain (3 sources) Lower abdominal pain 10-27-2019 Episodic Calculus of urinary tract (17 sources) Kidney stone; Translations: [Calculus of kidney] Onset: 03-12-2022 Episodic Cancer of breast (11 sources) Malignant neoplasm of upper-outer quadrant of female breast; Translations: [Malignant neoplasm of upper-outer quadrant of right female breast] Onset: 09-16-2018 09-16-2018 Chronic Diseases of white blood cells (1 source) Leukopenia; Translations: [Decreased white blood cell count, unspecified] 04-12-2024 Chronic Genitourinary symptoms and ill-defined conditions (13 [...] Test Name Value Interpretation Reference Range Facility Basophils Auto (Bld) [#/Vol] on 04-13-2024 Basophils (Bld) [#/Vol] 0.0 10 3/uL 0.0-0.1 [facility] Basophils/100 WBC Auto (Bld) on 04-13-2024 Basophils/100 WBC (Bld) 0.7 % 0.2-2.0 [facility] Eosinophils/100 WBC Auto (Bl d)on 04-13-2024 Eosinophils/100 WBC (Bld) 1.2 % 0.9-7.0 [facility] Erythrocyte distribution wid th Auto (RBC) [Ratio]on 04-13-2024 Erythrocyte distribution width (RBC) [Ratio] 12.1 % 11.0-15.0 [facility] Hematocrit Auto (Bld) [Volum e fraction]on 04-13-2024 Hematocrit (Bld) [Volume fraction] 41.0 % 36.0-48.0 [facility] Hemoglobin [Mass/volume] in Bloodon 04-13-2024 Hemoglobin (Bld) [Mass/Vol] 13.6 g/dL 12.0-16.0 [facility] Chip 04-13-2024 L Specimen: [id number] Received: 04/18/24 Status: GEMA Oneill Num: [id number] Spec Type: Impression Subm Dr: Juma Buckner DO Tissues: PATHPER Procedures: PATHREVIEW Age/ Patient Sex Location Account Attending Physician ArmandoJo-Ann 64/F LABELL [id number] Juma Buckner DO SPEC NUM: [id number] RECD: 04/18/24 STATUS: GEMA ONEILL NUM: [id number] GILA: 04/13/[address]: Juma Buckner DO ENTERED: 04/18/[address] [facility] DR: SPEC TYPE: Impression DEPT: MALENA Alvarez ENTERED BY: [id number] RECV BY: [id number] ORDERED: PATHREVIEW ORDERED: PATHREVIEW Pathologist Review Abnormal CBC for peripheral blood smear review: -Mild lymphocytopenia -No any other abnormality in all other hematologic indices -No morphological abnormality of the leukocyte population, and only occasional reactive lymphocytes seen Comment: -The smear review correspond well with the readings of the hematologic analyzer. -The cause of mild lymphocytopenia in this early elderly female patient is not clear in this case. Lymphocytopenia in general can be associated with leukemia, sepsis, immunodeficiency diseases, lupus, HIV infection, radiation therapy, and drug related changes including adrenocorticosteroids , and antineoplastics. Continuous clinical correlations are suggested CPT: 77690 -------- -------- Specimen: [id number] Received: 04/18/24 Status: GEMA Quintanaariel Num: [id number] Spec Type: Impression Subm Dr: Juma Buckner DO Tissues: PATHPER Procedures: PATHREVIEW -------- Patient: Jo-Ann Roberts [id number] (Continued) -------- Signed (signature on file) Yue Braga MD 04/18/242006 Normal [facility] Laboratory - Hematology and Cell countson 04-13-2024 ESR (Bld) [Velocity] 6 mm/h <=30 [facility] Immature granulocytes/100 WBC (Bld) 0.2 % 0.0-0.5 [facility] Leukocytes [#/volume] correc noe for nucleated erythrocytes in Blood by Automated counon 04-13-2024 WBC corrected for nucl RBC Auto (Bld) [#/Vol] 5.7 10 3/uL 4.0-11.0 [facility] Lymphocytes Auto (Bld) [#/Vo l]on 04-13-2024 Lymphocytes (Bld) [#/Vol] 1.1 10 3/uL Low 1.2-3.8 [facility] Lymphocytes/100 WBC Auto (Bl d)on 04-13-2024 Lymphocytes/100 WBC (Bld) 18.8 % Low 20.5-60.0 [facility] MCH Auto (RBC) [Entitic mass ]on 04-13-2024 MCH (RBC) [Entitic mass] 31.3 pg 26.7-34.0 [facility] MCHC Auto (RBC) [Mass/Vol]on 04-13-2024 MCHC (RBC) [Mass/Vol] 33.2 g/dL 29.9-35.[address] [facility] MCV Auto (RBC) [Entitic vol] on 04-13-2024 MCV (RBC) [Entitic vol] 94.5 fL 81.0-99.0 [facility] Monocytes Auto (Bld) [#/Vol] on 04-13-2024 Monocytes (Bld) [#/Vol] 0.3 10 3/uL 0.3-0.8 [facility] Monocytes/100 WBC Auto (Bld) on 04-13-2024 Monocytes/100 WBC (Bld) 5.4 % 1.7-12.0 [facility] Neutrophils Auto (Bld) [#/Vo l]on 04-13-2024 Neutrophils (Bld) [#/Vol] 4.2 10 3/uL 1.4-6.5 [facility] Neutrophils/100 WBC Auto (Bl d)on 04-13-2024 Neutrophils/100 WBC (Bld) 73.7 % 43.0-75.0 [facility] No Panel Informationon 04-13 C-Reactive Protein, Quantitative <0.50 mg/dL <=0.50 [facility] Eosinophils # (Auto) 0.1 10 3/uL 0.0-0.[address] [facility] Immature Granulocyte # (Auto) 0.01 10 3/uL 0.00-0.03 [facility] Platelet mean volume Auto (B ld) [Entitic vol]on 04-13-2024 Platelet mean volume (Bld) [Entitic vol] 11.2 fL 9.5-13.5 [facility] Platelets Auto (Bld) [#/Vol] on 04-13-2024 Platelets (Bld) [#/Vol] 199 10 3/uL 150-450 [facility] RBC Auto (Bld) [#/Vol]on RBC (Bld) [#/Vol] 4.34 10 6/uL 4.20-5.40 [facility] Serum or plasma free cefurox haylee measurement (mass/volume)on 04-13-2024 Cefuroxime free [Mass/Vol] Negative Negative [facility] Comment on above: Performed at: [facility] [employer] [address] [id number] Director: Dima Sosa PhD, Phone: [phone] Activated partial thrombopla stin time (aPTT) in platelet poor plasma by coagulation aon 04-04-2024 aPTT Coag (PPP) [Time] 29.7 s 22.3-36.2 [facility] Basophils Auto (Bld) [#/Vol] on 04-04-2024 Basophils (Bld) [#/Vol] 0.0 10 3/uL 0.0-0.1 [facility] Basophils/100 WBC Auto (Bld) on 04-04-2024 Basophils/100 WBC (Bld) 1.5 % 0.2-2.0 [facility] Eosinophils/100 WBC Auto (Bl d)on 04-04-2024 Eosinophils/100 WBC (Bld) 3.0 % 0.9-7.0 [facility] Erythrocyte distribution wid th Auto (RBC) [Ratio]on 04-04-2024 Erythrocyte distribution width (RBC) [Ratio] 12.0 % 11.0-15.0 [facility] Estimated glomerular filtrat ion rate (GFR) non- Americanon 04-04-2024 GFR/1.73 sq M.predicted among non-blacks MDRD (S/P/Bld) [Vol rate/Area] 58 mL/min/{1.73_m2} Low >=60 [facility] Hematocrit Auto (Bld) [Volum e fraction]on 04-04-2024 Hematocrit (Bld) [Volume fraction] 42.8 % 36.0-48.0 [facility] Hemoglobin [Mass/volume] in Bloodon 04-04-2024 Hemoglobin (Bld) [Mass/Vol] 14.2 g/dL 12.0-16.0 [facility] INR in Platelet poor plasma by Coagulation assayon 04-04-2024 INR Coag (PPP) [Relative time] 1.13 {INR} [facility] Comment on above: DESIRED INR:2.0-3.0 CONDITIONS NOT LISTED BELOW2.5-3.5 FOR PROSTHETIC HEART VALVE REPLACEMENT2.5-3.5 RECURRENT THROMBOSIS Laboratory - Chemistry and C hemistry - challengeon 04-04-2024 Calcium [Mass/Vol] 8.9 mg/dL 8.5-10.1 [facility] Chloride [Moles/Vol] 104 mmol/L 98-107 [facility] CO2 [Moles/Vol] 27.6 mmol/L 21.0-32.0 [facility] Creatinine [Mass/Vol] 0.97 mg/dL 0.55-1.[address] [facility] GFR/1.73 sq M.predicted MDRD (S/P/Bld) [Vol rate/Area] mL/min/{1.73_m2} >=60 [facility] Glucose [Mass/Vol] 92 mg/dL 74-106 [facility] Potassium [Moles/Vol] 4.0 mmol/L 3.5-5.[address] [facility] Sodium [Moles/Vol] 140 mmol/L 136-145 [facility] Urea nitrogen [Mass/Vol] 25.0 mg/dL High 7.0-18.0 [facility] Urea nitrogen/Creatinine [Mass ratio] 25.8 mg/mg [facility] Laboratory - Hematology and Cell countson 04-04-2024 Immature granulocytes/100 WBC (Bld) 0.4 % 0.0-0.5 [facility] Leukocytes [#/volume] correc noe for nucleated erythrocytes in Blood by Automated counon 04-04-2024 WBC corrected for nucl RBC Auto (Bld) [#/Vol] 2.7 10 3/uL Low 4.0-11.0 [facility] Lymphocytes Auto (Bld) [#/Vo l]on 04-04-2024 Lymphocytes (Bld) [#/Vol] 0.9 10 3/uL Low 1.2-3.8 [facility] Lymphocytes/100 WBC Auto (Bl d)on 04-04-2024 Lymphocytes/100 WBC (Bld) 33.3 % 20.5-60.0 [facility] MCH Auto (RBC) [Entitic mass ]on 04-04-2024 MCH (RBC) [Entitic mass] 31.0 pg 26.7-34.0 [facility] MCHC Auto (RBC) [Mass/Vol]on 04-04-2024 MCHC (RBC) [Mass/Vol] 33.2 g/dL 29.9-35.[address] [facility] MCV Auto (RBC) [Entitic vol] on 04-04-2024 MCV (RBC) [Entitic vol] 93.4 fL 81.0-99.0 [facility] Monocytes Auto (Bld) [#/Vol] on 04-04-2024 Monocytes (Bld) [#/Vol] 0.4 10 3/uL 0.3-0.8 [facility] Monocytes/100 WBC Auto (Bld) on 04-04-2024 Monocytes/100 WBC (Bld) 15.0 % High 1.7-12.0 [facility] Neutrophils Auto (Bld) [#/Vo l]on 04-04-2024 Neutrophils (Bld) [#/Vol] 1.3 10 3/uL Low 1.4-6.5 [facility] Neutrophils/100 WBC Auto (Bl d)on 04-04-2024 Neutrophils/100 WBC (Bld) 46.8 % 43.0-75.0 [facility] No Panel Informationon 04-04 Eosinophils # (Auto) 0.1 10 3/uL 0.0-0.[address] [facility] Immature Granulocyte # (Auto) 0.01 10 3/uL 0.00-0.03 [facility] Platelet mean volume Auto (B ld) [Entitic vol]on 04-04-2024 Platelet mean volume (Bld) [Entitic vol] 10.9 fL 9.5-13.5 [facility] Platelets Auto (Bld) [#/Vol] on 04-04-2024 Platelets (Bld) [#/Vol] 198 10 3/uL 150-450 [facility] Prothrombin time (PT)on 03-08 PT Coag (PPP) [Time] 11.8 s High 9.0-11.6 [facility] RBC Auto (Bld) [#/Vol]on RBC (Bld) [#/Vol] 4.58 10 6/uL 4.20-5.40 [facility] Serum or plasma anion gap de terminationon 04-04-2024 Anion gap [Moles/Vol] 12.4 mmol/L [facility] Ambulatory Visit Summaryon 0 02-29-2024 Ambulatory Visit Summary DONALD ROBERTSMarielle Barnett :1960 Visit Date:02/29/2024 Ambulatory Visit Instructions Your Diagnosis Kidney stones Asymptomatic microscopic hematuria Tests Performed XR Abdomen 1 View -- Results Pending -- Please visit your patient portal for your results or contact your primary care physician. Your Care Team Attending Physician - PATRICIA STRICKLAND, Wu Barksdale Primary Care Physician - JUMA BUCKNER DO [...] [facility] [address], [place] [phone] Medications What How Much When Instructions New potassium citrate (potassium CITRATE 10 mEq ER Tab) 2 Tablets By Mouth 2 times a day Duration: 30 Days Refills: 11 Pickup at [facility] #72288 Unchanged ergocalciferol (Vitamin D) By Mouth Every week Contact prescribing physician if questions or concerns Unchanged Non-Formulary Medication (Calcium) By Mouth Every day Contact prescribing physician if questions or concerns Pharmacy Information [facility] #[id number]: [address], [place] [phone] What How Much When Comments Stop Taking [...] ? 8 oz (237 mL) of milk, calcium-fortifiednon- dairy milk, and calcium-fortifiedfrui t juice. Calcium-fortified means that calcium has been [...] ? Eat (more content not included)... Normal [facility] Patient Educationon 02-29-20 Patient Education Nephrology [...] ? 8 oz (237 mL) of milk, calcium-fortifiednon- dairy milk, and calcium-fortifiedfrui t juice. Calcium-fortified means that calcium has been [...] Spinach (cooked), rhubarb, beets, sweet potatoes, and Angolan chard. ? Peanuts. ? Potato chips, sudanese fries, and baked potatoes with skin on. ? Nuts and nut products. ? Chocolate. ? If you regularly take a diuretic medicine, make sure to eat at least 1 or 2 servings of fruits or vegetables that are high in potassium each day. These include: ? Avocado. ? Banana. ? [place], prune, carrot, or tomato juice. ? Baked [...] fish oil, or vitamin B6. ? Take ajvw-pys-pxhiqqx and prescription medicines only as told by your health care provider. These include supplements. What foods sh (more content not included)... Normal [facility] Urology Office/Clinic Noteon 02-29-2024 Urology Office/Clinic Note Chief Complaint kidney stones and asymptomatic microhematuria HPI Staff 1 yr with [facility] @ [facility] 02/24/24 due to kidney stones. Previous DX: asymptomatic microscopic hematuria, dysuria, gross hematuria, hydronephrosis with urinary obstruction due to ureteral calculus, kidney stones, lower abdominal pain, microscopic hematuria, ureteral stone. S/P ESWL 04/11/21. Started Effer-K 25mEq BID at prior OV. Electrolyte panel was not done. Could not find any pertaining labs from PCP ([facility], [facility] either. Dysuria: no Incomplete bladder emptying: no [...] only been taking this once per day. [place] bloated when she took bid. Advised pt [...] [facility] [address], [place] [phone] Additional Instructions: 1 yr w/ [facility] Patient Education Dietary Guidelines to Help Prevent Kidney Stones INella, personally scribed for Dr. Velez on 02/29/2024 [...] Tobacco Use:. Household (more content not included)... [facility] Comment on above: Result Comment: Elec tronically Signed By: Wu VELEZ MD\.br\Date and Time Signed: 02/29/24 12:00 EDT\.br\Electronically Co-Signed By: Nella Carrillo.br\Date and Time Co-Signed: 02/29/24 11:56 EDT RAD - MISCon 02-25-2024 RAD - MISC [id number] .[id number] [facility] CNOVSPon 07-16-2023 CNOVSP Visit (SP) Office (HE[place]) JO-ANN [id number]) 1960 F Date Time Provider Department 07/16/23 3:15 PM NAN SARABIA During your visit today, we recorded the following information about you: Temperature Pulse Respiration Blood pressure 97.5 degrees 80/minute 16/minute 159/70 Weight Height 58.2 kg 1.651 maddi Nan Sarabia MD 07/17/2023 5:54 AM Signed [...] Diagnosis Date Breast cancer (HCC) Right; ER+ [place]- PAST SURGICAL HISTORY: PAST SURGICAL HISTORY Procedure Laterality Date APPENDECTOMY BREAST BIOPSY LUMPECTOMY/RADIOTHERA PY DIAG MAMM/A10 TONSILLECTOMY HX REVIEW OF SYSTEMS: [...] 197 RADIOLOGY/OTHER STUDIES: 05/04/2023 Bilateral diagnostic mammogram ([facility]) Stable postsurgical change in the right breast. No mammographic evidence of malignancy.. Routine follow-up in 1 year recommended. 05/02/2022 Bone density DEXA ([facility]) Osteoporosis. Max T score -2.6 left femoral neck, left femur, and right femur. ASSESSMENT/PLAN: 1. 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 Normal [facility] CNPNon 07-16-2023 CNPN Telephone (NCCAP) JO-ANN ROBERTS ([id number]) 1960 F Date Time Provider Department 07/16/23 NAN SARABIA During your visit today, we recorded the following information about you: Ayala James 07/16/2023 3:[address] new DEXA order. I believe the DXA Forearm is incorrect? Thanks! Ryan Chirinos APRN.BIOCHEMISTRY PROFESSOR 07/17/2023 11:40 AM Signed New order placed. Ryan Daniels APRN.BIOCHEMISTRY PROFESSOR Allergies As of Date: 07/16/2023 Noted Allergy Reaction KEFLEX (CEPHALEXIN) 01/14/2017 16 - Unknown Date Reviewed: 07/16/2023 Reviewed by: Akua Jorge MA - Fully Assessed Reason for Visit: Orders [681] Primary Visit Diagnosis:Osteopenia of multiple sites [M85.89] Order(s):DXA-AXIAL SKELETON [[id number]] Order #: [id number] FUTURE Prescriptions as of 07/17/2023 - KLOR-CON/EF 25 mEq disintegrating tablet - anastrozole (ARIMIDEX) 1 mg tablet TAKE 1 TABLET DAILY - CALCIUM CARBONATE/VITAMIN D3 (CALCIUM + D ORAL) Take by mouth. Problem List As Of Date 07/16/2023 Noted Resolved Breast CA (HCC) [C50.919] 09/02/2012 09/16/2018 Malignant neoplasm of upper-outer quadrant of r*09/16/2018 Osteopenia [M85.80] 09/18/2018 Encounter Status:Closed by AYALA JAMES on 07/17/23 [facility] CNPMerle 04-27-2023 CNPN Telephone (HEMT[facility]) JO-ANN ROBERTS ([id number]) 1960 F Date Time Provider Department 04/27/23 [...] pended for signature. PSS: Please fax to [phone] Thanks. 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 Faxed order April 27, 2023 4:23 PM Ayala James Allergies As of Date: 04/27/2023 Noted Allergy Reaction KEFLEX (CEPHALEXIN) 01/14/2017 16 - Unknown Date Reviewed: 06/16/2022 Reviewed by: Arina Smith - Fully Assessed Reason for Visit: Orders [681] Primary Visit Diagnosis:Encounter for screening mammogram for malignant neoplasm of breast [Z12.31] Order(s):MEMO SCREENING [[id number]] Order #: [id number] FUTURE Prescriptions as of 04/27/2023 - anastrozole (ARIMIDEX) 1 mg tablet TAKE 1 TABLET DAILY - CALCIUM CARBONATE/VITAMIN D3 (CALCIUM + D ORAL) Take by mouth. Problem List As Of Date 04/27/2023 Noted Resolved Breast CA (HCC) [C50.919] 09/02/2012 09/16/2018 Malignant neoplasm of upper-outer quadrant of r*09/16/2018 Osteopenia [M85.80] 09/18/2018 Encounter Status:Closed by DIPTI ULLOA on 04/27/23 Normal [facility] OXALATE 24HR URINEon 022 Oxalates, Urine 14 mg/L Normal Undefined [facility] Comment on above: Performed By: #### U NICHOLE 24 #### [facility] [address] [place] [address] Dr. Lizzette Braga Oxalates, Urine 24hr 28 mg/24 hr Normal 4-31 [facility] Comment on above: Performed By: #### U NICHOLE 24 #### [facility] [address] [place] [address] Dr. Lizzette Braga CITRATE URINE 24HRon 022 Citric Acid, U, 24hr 265 mg/24 hr Critically low 320-1240 [facility] Comment on above: Result Comment: This test was developed and its performance characteristics determined by [facility]. It has not been cleared or approved by the Food and Drug Administration. Performed By: #### U NICHOLE 24 #### [facility] [address] [place] [address] Dr. Lizzette Braga Citric Acid, Urine 131 mg/L Normal Undefined [facility] Comment on above: Performed By: #### U NICHOLE 24 #### [facility] [address] [place] [address] Dr. Lizzette Braga MAGNESIUM 24HR URINEon 04-03 Magnesium 24hr Urine 68.9 mg/24 hr Normal 12.0-293.0 [facility] Comment on above: Performed By: #### U NICHOLE 24 #### [facility] [address] [place] [address] Dr. Lizzette Braga Magnesium UR 3.4 mg/dL Normal Not Estab. [facility] Comment on above: Performed By: #### U NICHOLE 24 #### [facility] [address] [address] [address] Lizzette Braga PHOSPHORUS 24HR URINEon 03-08 Phosphorus, Urine 21.6 mg/dL Normal Not Estab. [facility] Comment on above: Performed By: #### U NICHOLE 24 #### [facility] [address] [place] [address] Dr. Lizzette Braga Phosphorus, Urine 24hr 437 mg/24 hr Normal 261-1078 [facility] Comment on above: Performed By: #### U NICHOLE 24 #### [facility] [address] [place] [address] Dr. Lizzette Braga URIC ACID 24 HR URINEon 03-08 Uric Acid, Urine 19.0 mg/dL Normal Not Estab. [facility] Comment on above: Performed By: #### U NICHOLE 24 #### [facility] [address] [place] [address] Dr. Lizzette Braga Uric Acid, Urine 24hr 384.8 mg/24 hr Normal 142.3-713. 2 [facility] Comment on above: Performed By: #### U NICHOLE 24 #### [facility] [address] [place] [address] Dr. Lizzette Braga CALCIUM 24 HR URINEon 2021 CALC, 24 HR UR 141.8 mg/24 hr Normal 100.0-300.0 [facility] Comment on above: Performed By: #### U NICHOLE 24 #### [facility] [address] [place] [address] Dr. Lizzette Braga UR CALCIUM 7.0 mg/dL Normal 5.1-21.0 [facility] Comment on above: Performed By: #### U NICHOLE 24 #### [facility] [address] [place] [address] Dr. Lizzette Braga CREA 24 HR URINEon 2 CREA, 24 HR UR 896.06 mg/24 hr Normal 800.00-1,8 00.0 0 [facility] Comment on above: Performed By: #### U NICHOLE 24 #### [facility] [address] [place] [address] Dr. Lizzette Braga URINE CREAT 44.25 mg/dL Normal 20.00-300.00 [facility] Comment on above: Performed By: #### U NICHOLE 24 #### [facility] [address] [place] [address] Dr. Lizzette Braga PTH INTACTon 04-01-2022 PTH, Intact 36 pg/mL Normal 15-65 [facility] Comment on above: Performed By: #### U NICHOLE 24 #### [facility] [address] [place] [address] Dr. Lizzette Braga SODIUM 24 HR URINEon 022 NA, 24 HR UR 99 mmol/24 hr Normal 40-220 [facility] Comment on above: Performed By: #### U NICHOLE 24 #### [facility] [address] [place] [address] Dr. Lizzette Braga Sodium (U) [Moles/Vol] 49 mmol/L Normal 30-90 [facility] Comment on above: Performed By: #### U NICHOLE 24 #### [facility] [address] [place] [address] Dr. Lizzette Braga UR TOT VOL 2025 ml/[address] [facility] Comment on above: Performed By: #### U NICHOLE 24 #### [facility] [address] [place] [address] Dr. Lizzette Braga BUNon 03-31-2022 Urea nitrogen [Mass/Vol] 18.0 mg/dL Normal 7.0-18.0 [facility] Comment on above: Performed By: #### C O2, CA, URIC, NA, K, CREA, BUN, CL #### [facility] [address] [place] [address] Dr. Lizzette Braga CALCIUMon 03-31-2022 Calcium [Mass/Vol] 9.0 mg/dL Normal 8.5-10.1 [facility] Comment on above: Performed By: #### U NICHOLE 24 #### [facility] [address] [place] [address] Dr. Lizzette Braga CHLORIDEon 03-31-2022 Chloride [Moles/Vol] 105 mmol/L Normal 98-107 [facility] Comment on above: Performed By: #### C O2, CA, URIC, NA, K, CREA, BUN, CL #### [facility] [address] [address] [address] Lizzette Braga CO2on 03-31-2022 CO2 [Moles/Vol] 27.7 mmol/L Normal 21.0-32.0 [facility] Comment on above: Performed By: #### C O2, CA, URIC, NA, K, CREA, BUN, CL #### [facility] [address] [address] [address] Lizzette Braga CREATININEon 03-31-2022 Creatinine [Mass/Vol] 0.96 mg/dL Normal 0.55-1.02 [facility] Comment on above: Performed By: #### C O2, CA, URIC, NA, K, CREA, BUN, CL #### [facility] [address] [place] [address] Dr. Lizzette Braga EGFR-AF AUSTRIAN >60 Normal >=60 [facility] Comment on above: Performed By: #### C O2, CA, URIC, NA, K, CREA, BUN, CL #### [facility] [address] [place] [address] Dr. Lizzette Braga EGFR-NON AF AUSTRIAN 59 mL/min/1.73m2 Critically low >=60 [facility] Comment on above: Performed By: #### C O2, CA, URIC, NA, K, CREA, BUN, CL #### [facility] [address] [place] [address] Dr. Lizzette Braga NAon 03-31-2022 Sodium [Moles/Vol] 141 mmol/L Normal 136-145 [facility] Comment on above: Performed By: #### C O2, CA, URIC, NA, K, CREA, BUN, CL #### [facility] [address] [place] [address] Dr. Lizzette Braga POTASSIUMon 03-31-2022 Potassium [Moles/Vol] 4.1 mmol/L Normal 3.5-5.1 [facility] Comment on above: Performed By: #### C O2, CA, URIC, NA, K, CREA, BUN, CL #### [facility] [address] [address] [address] Lizzette Braga URIC ACID SERUMon 03-31-2022 Urate [Mass/Vol] 3.0 mg/dL Normal 2.6-6.0 [facility] Comment on above: Performed By: #### C O2, CA, URIC, NA, K, CREA, BUN, CL #### [facility] [address] [address] [address] Lizzette Braga XR KUB 1 VIEWon [...] by: ISRRAEL COOPER Date: 2022-02-28 06:17 Normal [facility] CALCULI, URINARYon 1 2,8 Dihydroxyadenine Normal [facility] Comment on above: Performed By: #### U NICHOLE 24 #### [facility] [address] [place] [address] Dr. Lizzette Braga Ammonium Acid Urate Normal [facility] Comment on above: Performed By: #### U NICHOLE 24 #### [facility] [address] [address] [address] Lizzette Braga Bilirubin Ql (U) Normal [facility] Comment on above: Performed By: #### U NICHOLE 24 #### [facility] [address] [address] [address] Lizzette Braga Ca Oxalate Dihydrate 20 % Normal [facility] Comment on above: Performed By: #### U NICHOLE 24 #### [facility] [address] [address] [address] Lizzette Braga CaHPO4 (Brushite) Normal [facility] Comment on above: Performed By: #### U NICHOLE 24 #### [facility] [address] [address] [address] Lizzette Braga Calcium Bilirubinate Normal [facility] Comment on above: Performed By: #### U NICHOLE 24 #### [facility] [address] [address] [address] Lizzette Braga Calcium Carbonate Normal [facility] Comment on above: Performed By: #### U NICHOLE 24 #### [facility] [address] [address] [address] Lizzette Braga Calcium Oxalate Monohydrate 80 % [facility] Comment on above: Performed By: #### U NICHOLE 24 #### [facility] [address] [address] [address] Lizzette Braga Calcium Palmitate [facility] Comment on above: Performed By: #### U NICHOLE 24 #### [facility] [address] [address] [address] Lizzette Braga Calcium Phosphate [facility] Comment on above: Performed By: #### U NICHOLE 24 #### [facility] [address] [address] [address] Lizzette Braga Calcium Stearate [facility] Comment on above: Performed By: #### U NICHOLE 24 #### [facility] [address] [address] [address] Lizzette Braga Carbonate Apatite [facility] Comment on above: Performed By: #### U NICHOLE 24 #### [facility] [address] [address] [address] Lizzette Braga Cellular Material [facility] Comment on above: Performed By: #### U NICHOLE 24 #### [facility] [address] [address] [address] Lizzette Braga Cholesterol [facility] Comment on above: Performed By: #### U NICHOLE 24 #### [facility] [address] [address] [address] Lizzette Braga Color (U) Brown [facility] Comment on above: Performed By: #### U NICHOLE 24 #### [facility] [address] [address] [address] Lizzette Braga Comment Normal [facility] Comment on above: Performed By: #### U NICHOLE 24 #### [facility] [address] [address] [address] Lizzette Braga Comment: Comment Normal [facility] Comment on above: Result Comment: Lyle carias questions regarding Calculi Analysis contact [facility] at: [phone]. Performed By: #### U NICHOLE 24 #### [facility] [address] [address] [address] Lizzette Braga Composition Comment Normal [facility] Comment on above: Result Comment: Perc entage (Represents the % composition) Performed By: #### U NICHOLE 24 #### [facility] [address] [place] [address] Dr. Lizzette Braga Cystine Normal [facility] Comment on above: Performed By: #### U NICHOLE 24 #### [facility] [address] [address] [address] Lizzette Braga Disclaimer: Comment Normal [facility] Comment on above: Result Comment: This test was developed and its performance characteristics determined by [facility]. It has not been cleared or approved by the Food and Drug Administration. Performed By: #### U NICHOLE 24 #### [facility] [address] [place] [address] Dr. Lizzette Braga Dried Blood Normal [facility] Comment on above: Performed By: #### U NICHOLE 24 #### [facility] [address] [address] [address] Lizzette Braga Drug or Metabolite Normal [facility] Comment on above: Performed By: #### U NICHOLE 24 #### [facility] [address] [address] [address] Lizzette Braga Hydroxyapatite Normal [facility] Comment on above: Performed By: #### U NICHOLE 24 #### [facility] [address] [place] [address] Dr. Lizzette Braga Mg NH4 PO4 (Struvite) Normal [facility] Comment on above: Performed By: #### U NICHOLE 24 #### [facility] [address] [address] [address] Lizzette Braga MgHPO4 ([facility]) Normal [facility] Comment on above: Performed By: #### U NICHOLE 24 #### [facility] [address] [address] [address] Lizzette Braga Other component(s) Normal [facility] Comment on above: Performed By: #### U NICHOLE 24 #### [facility] [address] [address] [address] Lizzette Braga PDF . Normal [facility] Comment on above: Performed By: #### U NICHOLE 24 #### [facility] [address] [address] [address] Lizzette Braga Photo Comment [facility] Comment on above: Result Comment: Phot ograph will follow under a separate cover Performed By: #### U NICHOLE 24 #### [facility] [address] [place] [address] Dr. Lizzetet Braga Please note: Comment [facility] Comment on above: Result Comment: Calc romelia report will follow via computer, mail or national facilities manager delivery. Performed By: #### U NICHOLE 24 #### [facility] [address] [place] [address] Dr. Lizzette Braga Size 3x3 [facility] Comment on above: Result Comment: Mult iple pieces received. Dimensions of the largest piece reported. Performed By: #### U NICHOLE 24 #### [facility] [address] [place] [address] Dr. Lizzette Braga Sodium Acid Urate Normal [facility] Comment on above: Performed By: #### U NICHOLE 24 #### [facility] [address] [address] [address] Lizzette Braga Source Comment [facility] Comment on above: Result Comment: Not provided Performed By: #### U NICHOLE 24 #### [facility] [address] [place] [address] Dr. Lizzette Braga Triamterene [facility] Comment on above: Performed By: #### U NICHOLE 24 #### [facility] [address] [address] [address] Lizzette Braga Uric Acid Normal [facility] Comment on above: Performed By: #### U NICHOLE 24 #### [facility] [address] [place] [address] Dr. Lizzette Braga Uric Acid Dihydrate Normal [facility] Comment on above: Performed By: #### U NICHOLE 24 #### [facility] [address] [address] [address] Lizzette Braga Weight 84 mg Normal [facility] Comment on above: Performed By: #### U NICHOLE 24 #### [facility] [address] [place] [address] Dr. Lizzette Braga Xanthine Normal [facility] Comment on above: Performed By: #### U NICHOLE 24 #### [facility] [address] [place] [address] Dr. Lizzette Braga XR KUB 1 VIEWon [...] by: ISRRAEL COOPER Date: 2021 07:38 Normal [facility] COVID-19 Positive/Negativeon 02-25-2021 SARS-CoV-2 (COVID-19) N gene TREVOR+probe Ql (Resp) Negative Negative [facility] Comment on above: Testing for SARS-CoV -2 by RT-PCRThis test was developed and its performance characteristics determined by [employer] ([employer]) and validated at the [facility]. This test has not been FDA [...] the authorization is terminated or revoked sooner. Basophils Auto (Bld) [#/Vol] on 02-14-2021 Basophils (Bld) [#/Vol] 0.0 10*3/uL 0.0-0.2 [facility] Basophils/100 WBC Auto (Bld) on 02-14-2021 Basophils/100 WBC (Bld) 0.5 % [facility] Blood hemoglobin measurement (mass/volume)on 02-14-2021 Hemoglobin (Bld) [Mass/Vol] 14.3 g/dL 11.8-15.4 [facility] Blood leukocytes automated c ount (number/volume)on 02-14-2021 WBC (Bld) [#/Vol] 5.0 10*3/uL 4.5-11.[address] [facility] Creatinine and Glomerular fi ltration rate.predicted panel (S/P/Bld)on 02-14-2021 Creatinine [Mass/Vol] 0.89 mg/dL 0.44-1.03 [facility] Eosinophils Auto (Bld) [#/Vo l]on 02-14-2021 Eosinophils (Bld) [#/Vol] 0.1 10*3/uL 0.0-0.45 [facility] Eosinophils/100 WBC Auto (Bl d)on 02-14-2021 Eosinophils/100 WBC (Bld) 1.3 % [facility] Erythrocyte distribution wid th Auto (RBC) [Ratio]on 02-14-2021 Erythrocyte distribution width (RBC) [Ratio] 12.8 % 11.9-15.3 [facility] Estimated glomerular filtrat ion rate (GFR) non- Americanon 02-14-2021 GFR/1.73 sq M.predicted among non-blacks MDRD (S/P/Bld) [Vol rate/Area] > 60 mL/Min [facility] Hematocrit Auto (Bld) [Volum e fraction]on 02-14-2021 Hematocrit (Bld) [Volume fraction] 42.9 % 34.0-46.4 [facility] Laboratory - Hematology and Cell countson 02-14-2021 Nucleated RBC/100 WBC (Bld) [Ratio] 0.3 % 0-0.5 [facility] Lymphocytes Auto (Bld) [#/Vo l]on 02-14-2021 Lymphocytes (Bld) [#/Vol] 1.0 10*3/uL 1.00-4.8 [facility] Lymphocytes/100 WBC Auto (Bl d)on 02-14-2021 Lymphocytes/100 WBC (Bld) 19.9 % [facility] MCH Auto (RBC) [Entitic mass ]on 02-14-2021 MCH (RBC) [Entitic mass] 31.1 pg 24.7-34.3 [facility] MCHC Auto (RBC) [Mass/Vol]on 02-14-2021 MCHC (RBC) [Mass/Vol] 33.5 g/dL 32.0-35.0 [facility] MCV Auto (RBC) [Entitic vol] on 02-14-2021 MCV (RBC) [Entitic vol] 93.0 fL 80-100 [facility] Monocytes Auto (Bld) [#/Vol] on 02-14-2021 Monocytes (Bld) [#/Vol] 0.4 10*3/uL 0.0-0.8 [facility] Monocytes/100 WBC Auto (Bld) on 02-14-2021 Monocytes/100 WBC (Bld) 7.1 % [facility] Neutrophils Auto (Bld) [#/Vo l]on 02-14-2021 Neutrophils (Bld) [#/Vol] 3.6 10*3/uL 1.8-7.7 [facility] Neutrophils/100 WBC Auto (Bl d)on 02-14-2021 Neutrophils/100 WBC (Bld) 71.2 % [facility] No Panel Informationon 02-14 Estimated GFR () > 60 mL/Min [facility] Comment on above: GFR estimated refere nce range: According to KDOQI guidelines, <60 ml/min/1.73m2 is sufficient to diagnose a patient with chronic kidney disease. Pharmacy Creatinine Clearance (Chem N/A [facility] Platelet mean volume Auto (B ld) [Entitic vol]on 02-14-2021 Platelet mean volume (Bld) [Entitic vol] 10.2 fL 6.3-10.7 [facility] Platelets Auto (Bld) [#/Vol] on 02-14-2021 Platelets (Bld) [#/Vol] 198 10*3/uL 150-450 [facility] RBC Auto (Bld) [#/Vol]on RBC (Bld) [#/Vol] 4.61 10*6/uL 3.60-5.00 [facility] Serum or plasma calcium macario urement (mass/volume)on 02-14-2021 Calcium [Mass/Vol] 9.5 mg/dL 8.2-10.[address] [facility] Serum or plasma chloride tylor surement (moles/volume)on 02-14-2021 Chloride [Moles/Vol] 100 mmol/L 95-114 [facility] Serum or plasma glucose macario urement (mass/volume)on 02-14-2021 Glucose [Mass/Vol] 93 mg/dL 70-[address] [facility] Comment on above: ADA recommended refe rence rangeRandom Glucose Reference Range is dependent on time and content of last meal. Glucose of more than 200 mg/dL in a nonstressed, ambulatory subject supports the diagnosis of Diabetes Mellitus. Serum or plasma potassium me asurement (moles/volume)on 02-14-2021 Potassium [Moles/Vol] 4.2 mmol/L 3.5-5.1 [facility] Serum or plasma sodium measu rement (moles/volume)on 02-14-2021 Sodium [Moles/Vol] 139 mmol/L 136-[address] [facility] Serum or plasma total carbon dioxide measurement (moles/volume)on 02-14-2021 CO2 [Moles/Vol] 24.7 mmol/L 22.0-30.0 [facility] Serum or plasma urea nitroge n measurement (mass/volume)on 02-14-2021 Urea nitrogen [Mass/Vol] 20 mg/dL 05-30 [facility] Vital Signs Date Time Vital Sign Value Performing Clinician Facility 02-29-2024 11:18-0400 Blood Pressure Location Wu VELEZ [facility] 02-29-2024 11:18-0400 Body temperature 98.6 [degF] Wu VELEZ [facility] 02-29-2024 11:18-0400 Diastolic blood pressure 84 mm[Hg] Wu VELEZ [facility] 02-29-2024 11:18-0400 Heart rate 69 /min Wu VELEZ [facility] 02-29-2024 11:18-0400 Respiratory rate 16 /min Wu VELEZ [facility] 02-29-2024 11:18-0400 Systolic blood pressure 124 mm[Hg] Wu VELEZ [facility] 07-16-2023 14:59-0500 Body height 165.1 cm Nan Sarabia MD Work Phone: [facility] 07-16-2023 14:59-0500 Body temperature 97.5 [degF] Nan Sarabia MD Work Phone: [facility] 07-16-2023 14:59-0500 Body weight 58.15 kg Nan Sarabia MD Work Phone: [facility] 07-16-2023 14:59-0500 Diastolic blood pressure 70 mm[Hg] Nan Sarabia MD Work Phone: [facility] 07-16-2023 14:59-0500 Heart rate 80 /min Nan Sarabia MD Work Phone: [facility] 07-16-2023 14:59-0500 Respiratory rate 16 /min aNn Sarabia MD Work Phone: [facility] 07-16-2023 14:59-0500 SaO2% (BldA) [Mass fraction] 100 % Nan Sarabia MD Work Phone: [facility] 07-16-2023 14:59-0500 Systolic blood pressure 159 mm[Hg] Nan Sarabia MD Work Phone: [facility] 06-19-2023 14:45-0400 Body height 161.29 cm Juma Ball Other [facility] Other 06-19-2023 14:45-0400 Body mass index (BMI) [Ratio] 22.14 kg/m2 Juma Ball Other [facility] Other 06-19-2023 14:45-0400 Body weight 57.61 kg Juma Ball Other [facility] Other 06-19-2023 14:45-0400 Diastolic blood pressure 79 mm[Hg] Juma Ball Other [facility] Other 06-19-2023 14:45-0400 Respiratory rate 12 /min Juma Ball Other [facility] Other 06-19-2023 14:45-0400 Systolic blood pressure 156 mm[Hg] Juma Ball Other [facility] Other 10-28-2022 16:30-0500 Body height 161.29 cm Karina Carlson Other [facility] Other 10-28-2022 16:30-0500 Body mass index (BMI) [Ratio] 21.97 kg/m2 Karina Aldo Other [facility] Other 10-28-2022 16:30-0500 Body temperature 97.3 [degF] Karina Carlson Other [facility] Other 10-28-2022 16:30-0500 Body weight 57.15 kg Karina Carlson Other [facility] Other 10-28-2022 16:30-0500 Respiratory rate 19 /min Karina Carlson Other [facility] Other 10-28-2022 16:30-0500 SaO2% (BldA) [Mass fraction] Karina Carlson Other [facility] Other 08-06-2022 15:15-0500 Blood Pressure Location Wu [facility] 08-06-2022 15:15-0500 Diastolic blood pressure 80 mm[Hg] Wu VELEZ [facility] 08-06-2022 15:15-0500 Heart rate 72 /min Wu VELEZ [facility] 08-06-2022 15:15-0500 Systolic blood pressure 141 mm[Hg] Wu VELE[facility] 06-16-2022 15:31-0400 Body height 165.1 cm Nan Sarabia MD Work Phone: [facility] 06-16-2022 15:31-0400 Body temperature 97.39 [degF] Nan Sarabia MD Work Phone: [facility] 06-16-2022 15:31-0400 Body weight 55.97 kg Nan Sarabia MD Work Phone: [facility] 06-16-2022 15:31-0400 Diastolic blood pressure 67 mm[Hg] Nan Sarabia MD Work Phone: [facility] 06-16-2022 15:31-0400 Heart rate 82 /min Nan Sarabia MD Work Phone: [facility] 06-16-2022 15:31-0400 Respiratory rate 16 /min Nan Sarabia MD Work Phone: [facility] 06-16-2022 15:31-0400 SaO2% (BldA) [Mass fraction] 99 % Nan Sarabia MD Work Phone: [facility] 06-16-2022 15:31-0400 Systolic blood pressure 147 mm[Hg] Nan Sarabia MD Work Phone: [facility] 03-12-2022 10:42-0400 Blood Pressure Location Wu VELEZ [facility] 03-12-2022 10:42-0400 Diastolic blood pressure 89 mm[Hg] Wu VELEZ [facility] 03-12-2022 10:42-0400 Heart rate 85 /min Wu VELEZ [facility] 03-12-2022 10:42-0400 Respiratory rate 16 /min Wu VELEZ [facility] 03-12-2022 10:42-0400 Systolic blood pressure 139 mm[Hg] Wu VELEZ [facility] Encounters Encounter Date Encounter Type Care Provider Facility Start: 03-03-2025 ambulatory Wu Apolonia VELEZ Facili ty:MARSHA Nelson Start: 04-13-2024 Non-patient / Non-visit DO Loi Buckner Work Phone: [facility] Work Phone: Start: 04-13-2024 End: 04-13-2024 ambulatory Wu VELEZ [id number] Start: 04-13-2024 End: 04-13-2024 Departed Referred DO Juma Dudley Work Phone: [facility] Start: 04-04-2024 Non-patient / Non-visit DO Loi april Buckner Work Phone: [facility] [employer] Work Phone: Start: 02-29-2024 End: 02-29-2024 ambulatory Wu VELEZ Facility:[facility] [place] Start: 02-29-2024 End: 02-29-2024 Patient encounter procedure Wu VELEZ [facility] [place] Start: 07-17-2023 End: 07-17-2023 ambulatory Juma Dudley Other [facility] Other Start: 07-17-2023 Telephone encounter Juma Buckner [facility] Start: 07-16-2023 End: 07-17-2023 ambulatory RYAN DANIELS Facility:[facility] Start: 07-16-2023 End: 07-16-2023 ambulatory Nan Sarabia MD Work Phone: Hematology/Oncology Comment on above: Malignant neoplasm o f upper-outer quadrant of right breast in female, estrogen receptor positive (HCC) (Primary Dx); Age-related osteoporosis without current pathological fracture Start: 07-16-2023 End: 07-16-2023 Patient encounter procedure Nan Sarabia MD Work Phone: [facility] Start: 06-19-2023 End: 06-19-2023 ambulatory Juma Buckner Other [facility] Other Start: 06-19-2023 Encounter for genera l adult medical examination without abnormal findings Juma Buckner [facility] Start: 06-19-2023 Periodic preventive med est patient 40-64yrs Juma Dudley [facility] Start: 04-27-2023 Telephone encounter Dipti Ulloa RN Hematology/Oncology Comment on above: Orders Start: 10-28-2022 End: 10-28-2022 ambulatory Karina Aldo Other [facility] Other Start: 10-28-2022 Office outpatient ne w 20 minutes Karina Carlson [facility] Start: 08-06-2022 End: 08-06-2022 Patient encounter procedure Wu VELEZ [facility] Start: 06-16-2022 End: 06-16-2022 ambulatory Nan Sarabia MD Work Phone: Hematology/Oncology Comment on above: Malignant neoplasm o f upper-outer quadrant of right breast in female, estrogen receptor positive (HCC) (Primary Dx); Age-related osteoporosis without current pathological fracture Start: 06-16-2022 End: 06-16-2022 Patient encounter procedure Nan Sarabia MD Work Phone: [facility] Start: 04-01-2022 End: 04-01-[address] WU VELEZ Facility:[facility] Start: 03-31-2022 End: 04-01-[address] WU VELEZ Facility:[facility] Start: 03-12-2022 End: 03-12-2022 Patient encounter procedure Wu VELEZ [facility] Start: 02-27-2022 End: 02-28-[address] JUMA BUCKNER Facility:[facility] Start: 01-27-2022 Luz Daniels APRN.CNP Work Phone: Hematology/Oncology Comment on [...] Adult depression scr eening assessment Ryan Daniels AIRLINE COUNTER AGENT.BIOCHEMISTRY PROFESSOR Work Phone: Start: 04-30-2021 Mammography Ryan ledesma AIRLINE COUNTER AGENT.BIOCHEMISTRY PROFESSOR Work Phone: Start: 2021 Extracorporeal shock wave lithotripsy of calculus of kidney Wu VELEZ Start: 11-07-2019 Cystoscopy Wu MATHEWS Appendectomy Wu VELEZ Breast structure (cele dy structure) Wu VELEZ Tonsillectomy Wu VELEZ Plan of Treatment Date Care Activity Detail Author Start: 06-17-2024 DIABETES SCREEN DIABETES SCREEN [facility] Start: 06-17-2024 Diabetes Screening Diabetes Screenin g [facility] Start: 05-04-2024 Mammography Mammogram Screening [facility] Start: 05-08-2023 Influenza vaccination [facility] Start: 05-02-2023 Mammography MAMMOGRAM [facility] Start: 09-07-2022 DEPRESSION ASSESSMENT DEPRESSION ASS ESSMENT [facility] Start: 06-17-2022 Adult depression screening assessment DEPRESSION SCREENING [facility] Start: 05-08-2022 Influenza vaccination [facility] Start: 04-30-2022 Mammography MAMMOGRAM [facility] Start: 09-07-2021 DEPRESSION ASSESSMENT DEPRESSION ASS ESSMENT [facility] Start: 2020 RSV Vaccine (1 - 1-d ose 60+ series) RSV Vaccine (1 - 1-dose 60+ series) [facility] Start: 2010 SHINGRIX VACCINE (1 of 2) SHINGRIX VACCINE (1 of 2) [facility] Start: 2005 COLOGUARD (FIT-DNA) COLOGUARD (FIT-D NA) [facility] Start: 2005 Colonoscopy COLONOSCOPY [facility] Start: 2005 COLORECTAL CANCER SCREENING COLORECTAL CANCER SCREENING [facility] Start: [address] COLONOGRAPHY [facility] Start: 2005 FECAL OCCULT BLOOD FECAL OCCULT BLOO D [facility] Start: 2005 Lipid 1996 panel - S gisell or Plasma Lipid Screening [facility] Start: 2005 LIPID SCREEN LIPID SCREEN [facility] Start: 2005 SIGMOIDOSCOPY SIGMOIDOSCOPY [facility] Start: 1990 HPV TESTING HPV TESTING [facility] Start: 1981 PAP TESTING PAP TESTING [facility] Start: 1979 Urine microalbumin profile [facility] Start: 1978 HEPATITIS C SCREENING HEPATITIS C SC REENING [facility] Start: 1978 HIV SCREENING HIV SCREENING [facility] Start: 1966 PNEUMOCOCCAL (1 - PCV) PNEUMOCOCCAL (1 - PCV) [facility] Start: 1965 COVID-19 VACCINE (#1) COVID-19 VACCI NE (#1) [facility] Start: 1960 COVID-19 VACCINE (#1) COVID-19 VACCI NE (#1) [facility] End: 07-16-2023 Diagnostic mammography computer-aided detcj bi MEMO DIAGNOSTIC BILAT Radiology Routine Malignant neoplasm of upper-outer quadrant of right breast in female, estrogen receptor positive (HCC) 1 Occurrences starting 06/16/2022 until 07/16/2023 [facility] Work Phone: Comment on above: 1 Occurrences starti ng 06/16/2022 until 07/16/2023 End: 08-14-2024 DXA-FOREARM SKELETON DXA-FOREARM SKELETON Radiology Routine Age-related osteoporosis without current pathological fracture Malignant neoplasm of upper-outer quadrant of right breast in female, estrogen receptor positive (HCC) 1 Occurrences starting 07/16/2023 until 08/14/2024 [facility] Work Phone: Comment on above: 1 Occurrences starti ng 07/16/2023 until 08/14/2024 End: 05-26-2024 MEMO SCREENING MEMO SCREENING Radiology Routine Encounter for screening mammogram for malignant neoplasm of breast 1 Occurrences starting 04/27/2023 until 05/26/2024 [facility] Work Phone: Comment on above: 1 Occurrences starti ng 04/27/2023 until 05/26/2024 End: 08-14-2024 MEMO SCREENING W FAISAL MEMO SCREENING W FAISAL Radiology Routine Age-related osteoporosis without current pathological fracture Malignant neoplasm of upper-outer quadrant of right breast in female, estrogen receptor positive (HCC) 1 Occurrences starting 07/16/2023 until 08/14/2024 [facility] Work Phone: Comment on above: 1 Occurrences starti ng 07/16/2023 until 08/14/2024 [facility] Payers Date Payer Category Payer Self-pay [id number] 2016 Unknown [id number] 2012 Unknown MMO MMO [employer] [id number] 2012-Present [phone] [address] [place] [address] O [id number] 1960 Unknown [id number] 1960 Unknown [id number] 1960 Unknown [id number] 1960 Unknown [id number] 1960 Unknown [id number] 1960 Unknown [id number] 1960 Unknown [id number] 1959 Unknown [id number] Unknown [id number] Social History Date Type Detail Facility Start: 02-14-2021 End: 06-17-2023 Tobacco smoking status NHIS Never smoked tobacco (finding) [facility] Start: 1960 Sex Assigned At Female [facility] Start: 04-25-2014 Tobacco use and exposure Smokeless tobacco non-user [facility] Start: 06-17-2021 End: 06-16-2022 Alcohol intake Current non-drinker of alcohol (finding) [facility] Start: 1960 Sex Assigned At Not on file [facility] Start: 06-16-2022 End: 07-16-2023 Sex Assigned At Female [facility] Start: 06-06-2022 End: 06-16-2022 Exposure to SARS-CoV-2 (event) Not sure [facility] Tobacco smoking status Never [facility] Start: 06-16-2022 End: 07-16-2023 History of Social function [facility] Functional Status Date Assessment Result Facility 02-29-2024 Functional Status N/A [facility] 08-06-2022 Functional Status N/A [facility] 03-12-2022 Functional Status N/A [facility] Clinical Notes 09-02-2012 to 02-29-2024 Note Date [...] include: ?8 oz (237 mL) of milk, ustzbax-spciiqldxbkg-aujmd milk, and calcium-fortifiedfruit juice. Calcium-fortified means that [...] ?Spinach (cooked), rhubarb, beets, sweet potatoes, and Angolan chard. ?Peanuts. ?Potato chips, sudanese fries, and baked potatoes with skin on. ?Nuts and nut products. ?Chocolate. If you regularly take a diuretic medicine, make sure to eat at least 1 or 2 servings of fruits or vegetables that are high in potassium each day. These include: ?Avocado. ?Banana. ?[place], prune, carrot, or tomato juice. ?Baked potato. [...] magnesium, fish oil, or vitamin B6. Take hcem-tyz-qioupmq and prescription medicines only as told by [...] Casseroles. Pizza. Lasagna. Frozen meals. Potato chips. Thai fries. The items listed above may not [...] provider. Document Revised: 12/04/2022 Document Reviewed: 12/04/2022 [employer] Patient Education 2022 [employer]. Follow Up Care 08/06/2022 16:16:25 With:PATRICIA STRICKLAND, Wu Barksdale, URL Address: [facility] [address], [place] [address] [phone] When: Unknown Comments:1 yr w/ PATRICIA [facility] 07-17-2023 Evaluation note Encounter Date Diagnosis Assessment Notes Jul, Malignant neoplasm of upper-outer quadrant of right female breast (ICD-10 - C50.411) Lumpectomy 2011, adjuvent chemotherapy, adjuvent radiation therapy, completed 9 years hormone therapy Jul, Estrogen receptor positive status [ER+] (ICD-10 - Z17.0) [facility] Other [id number] Nurse Note* Akua Jorge MA - 07/16/2023 3:02 PM EST Patient would like opinion on right hand pinky finger she has a bump her PCP looked at it said it was probably a cyst but she would still like your opinion, it has not changed at all. Akua Jorge MA documented in this encounterH[facility]11-[facility]-2023 NoteHNO ID: [id number] Author: Nan Sarabia MD Service: ? Author [...] Diagnosis Date Breast cancer (HCC) Right; ER+ NJ- PAST SURGICAL HISTORY: PAST SURGICAL HISTORY Procedure [...] 197 RADIOLOGY/OTHER STUDIES: 05/04/2023 Bilateral diagnostic mammogram ([facility]) Stable postsurgical change in the right breast. No mammographic evidence of malignancy.. Routine follow-up in 1 year recommended. 05/02/2022 Bone density DEXA ([facility]) Osteoporosis. Max T score -2.6 left femoral neck, left femur, and right femur. ASSESSMENT/PLAN: 1. 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 No mammographic evidence of malignancy.. Routine follow-up in 1 year recommended. 05/02/2022 Bone density DEXA ([facility]) Osteoporosis. Max T score -2.6 left femoral neck, left femur, and right femur. ASSESSMENT/PLAN: 1. 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 Buckner documented in this encounterH[facility] Evaluation note* Encounter Date Diagnosis Assessment [...] fliuds. No recent episodes of ureteral colic Jun, Subcutaneous mass (ICD-10 - R22.9) Benign appearance but worrisome to the patient. Recommend referral for excision. 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 Faxed order April 27, 2023 4:23 PM [...] pended for signature. PSS: Please fax to [phone] Thanks. Dipti Ulloa RN documented in this encounterHocking [facility]02-21-2023 Evaluation note* Encounter Date Diagnosis Assessment [...] to ER immediately, Conjunctivitis material was printed [facility] Other 11-30-2022 Hospital Discharge instructions Patient Education [...] include: ?Spinach. ?Rhubarb. ?Beets. ?Potato chips and sudanese fries. ?Nuts. If you regularly take a diuretic medicine, make sure to eat at least 1 2 fruits or vegetables high in potassium each day. These include: ?Avocado. ?Banana. ?[place], prune, carrot, or tomato juice. ?Baked potato. [...] Casseroles. Pizza. Lasagna. Frozen meals. Potato chips. Thai fries. Summary You can reduce your risk [...] 12/19/2011 Document Revised: 12/14/2019 Document Reviewed: 08/04/2017 [employer] Patient Education 2020 [employer]. Follow Up Care 04/30/2022 15:39:48 With:PATRICIA STRICKLAND, Wu Barksdale, URL Address: [facility] [address] , [place] [address]- When: Unknown [facility] 10-10-2022 History of Present illness Narrative* Nan [...] Diagnosis Date Breast cancer (HCC) Right; ER+ NJ- PAST SURGICAL HISTORY: PAST SURGICAL HISTORY Procedure [...] 197 RADIOLOGY/OTHER STUDIES: 05/02/2022 Bone density DEXA ([facility]) Osteoporosis. Max T score -2.6 left femoral neck, left femur, and right femur. And left femur 05/02/2022 Bilateral diagnostic mammogram ([facility]) Stable postsurgical change in the right breast. No mammographic evidence of malignancy or significant change. Routine follow-up in 1 year recommended. ASSESSMENT/PLAN: 1. 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 Buckner documented in this encounterHocking [facility]07-[facility] Hospital Discharge instructions Patient Education 03/12/2022 [...] Follow these instructions at home: Medicines Take yjap-olh-ydjmctu and prescription medicines only as told by [...] 08/24/2006 Document Revised: 01/10/2020 Document Reviewed: 01/10/2020 [employer] Patient Education 2019 [employer]. Follow Up Care 02/13/2022 09:45:15 With:PATRICIA STRICKLAND, Wu Barksdale, URL Address: [facility] [address] , [place] [address]- When:3 months Comments:w/metabolic workup [facility] 05-23-2022 Miscellaneous Notes* Telephone Encounter - Ryan Daniels APRN.CNP - 01/27/2022 4:44 PM EDT The following approved medication requests have been refused. Refused Prescriptions Disp Refills anastrozole (ARIMIDEX) 1 mg tablet [Pharmacy Med Name: ANASTROZOLE TABS 1MG] 90 tablet 3 Sig: TAKE 1 TABLET DAILY OFELIA: No Refused By: RYAN DANIELS Reason for Refusal: A Refill not appropriate Ryan Daniels APRN.BIOCHEMISTRY PROFESSOR documented in this encounterHocking [facility]12-27-2012 History of Past illness Narrative* Problem Noted Date Resolved Date Breast CA 09/02/2012 09/16/2018 Overview: Right; ER+ NJ-; HER2 - documented as of this encounter (statuses as of 01/28/2022) [facility]12-27-2012 History of Past illness Narrative* Problem Noted Date Resolved Date Breast CA 09/02/2012 09/16/2018 Overview: Right; ER+ [place]-; HER2 - documented as of this encounter (statuses as of 06/17/2022) [facility]12-27-2012 History of Past illness Narrative* Problem Noted Date Diagnosed Date Resolved Date Breast CA 09/02/2012 09/16/2018 Overview: Right; ER+ [place]-; HER2 - documented as of this encounter (statuses as of 04/28/2023) [place] [id number] History of Past illness Narrative* Problem Noted Date Diagnosed Date Resolved Date Breast CA 09/02/2012 09/16/2018 Overview: Right; ER+ [place]-; HER2 - documented as of this encounter (statuses as of 07/17/2023) [facility] Appointment Date:06/23/2022 03:00:00 PM Scheduled Provider:Wu [facility]Z [facility] Office Visit [facility] Evaluation + Plan note Future Appointments Appointment Date:08/10/2023 02:45:00 PM Scheduled Provider:Wu VELEZ MD [facility] Type:URO Office Visit [facility] Evaluation + Plan note Future Appointments Appointment Date:03/03/2025 08:45:00 AM Scheduled Provider:Wu VELEZ MD Location:[facility] Appointment Type:URO Office Visit [facility] evaluation noteNo assessment information available [facility] Diagnosis Malignant neoplasm of upper-outer quadrant of right breast in female, estrogen receptor positive (HCC)- Primary Age-related osteoporosis without current pathological fracture Senile osteoporosis documented in this encounter [facility]* Diagnosis Encounter for screening mammogram for malignant neoplasm of breast- Primary Other screening mammogram [facility] Diagnosis Malignant neoplasm of upper-outer quadrant of right breast in female, estrogen receptor positive (HCC)- Primary Age-related osteoporosis without current pathological fracture Senile osteoporosis [facility] Narrative - Reported* Type Description Date Medical History Breast cancer Surgical History appendectomy Surgical History tonsillectomy Surgical History lumpectomy, right breast x2 201 2 Hospitalization History see above surgical histo ry [facility] Other History general Narrative - Reported* Type Description Date Medical History Breast cancer Medical History Nephrolithiasis Medical History Osteopenia of lumbar spine Surgical History appendectomy Surgical History tonsillectomy Surgical History lumpectomy, right breast x2 201 2 Hospitalization History see above surgical histo ry [place] [employer] Other Hospital course Narrative No data available for this section [facility] [facility] note No data available for this section [facility] Reason for referral (narrative)* Diagnostic Procedure Only (Routine) - Pending Review Specialty Diagnoses / Procedures Referred By Contac t Referred To Contact [facility] Diagnoses Malignant neoplasm of upper-outer quadrant of right breast in female, estrogen receptor positive (HCC) Procedures MEMO DIAGNOSTIC BILAT DIAGNOSTIC MAMMOGRAPHY COMPUTER-AIDED DETCJ Nan Miranda MD [address] [place] [address] [place] [address] [facility] [place] [address] Referral ID Status Reason Start Date Expiration Date Visits Requested Visits Authorized [id number] Pending Review Auto-Generat ed Referral 07/16/2023 1 1 T [facility] for referral (narrative)* Diagnostic Procedure Only (Routine) - Pending Review Specialty Diagnoses / Procedures Referred By Contac t Referred To Contact [facility] Diagnoses Encounter for screening mammogram for malignant neoplasm of breast Procedures MEMO SCREENING SCREENING MAMMOGRAPHY BI 2-VIEW BREAST INC CAD Nan Sarabia MD [address] [place] [address] [place] [address] [facility] [id number] Referral ID Status Reason Start Date Expiration Date Visits Requested Visits Authorized [id number] Pending Review Auto-Generat ed Referral 04/27/2023 05/26/2024 1 1 T [facility] for referral (narrative)* Diagnostic Procedure Only (Routine) - Pending Review Specialty Diagnoses / Procedures Referred By Contac t Referred To Contact XR IMAGING Diagnoses Age-related osteoporosis without current pathological fracture Malignant neoplasm of upper-outer quadrant of right breast in female, estrogen receptor positive (HCC) Procedures DXA-FOREARM SKELETON DXA BONE DENSITY STUDY 1/>SITES APPENDICLR Nan Morales MD [address] [place] [address] [place] [address] [place] [id number] Referral ID Status Reason Start Date Expiration Date Visits Requested Visits Authorized [id number] Pending Review Auto-Generat ed Referral 07/16/2023 08/14/2024 [...] BI 2-VIEW BREAST INC Nan Chau MD [address] [place] [address] [place] [address] [facility] [address] [place] [address] Referral ID Status Reason Start Date Expiration Date Visits Requested Visits Authorized [id number] Pending Review Auto-Generat ed Referral 07/16/2023 08/14/2024 1 1 [facility] Chief Complaint and Reason for Visit Chief Complaint kidney stone kidney stone Chief Complaint Unknown Family History No Family History Records Found Relationship Condition Age at Onset Recorded Date/T haylee father Hypertension Unknown Congestive heart failure Unknown Relationship Condition Age at Onset Recorded Date/T haylee father Hypertension Unknown Congestive heart failure Unknown father Heart disease Unknown Unknown Hernia Unknown Advance Directives No Advanced Directives Records Found Advance Directive Response Recorded Date/ Time Advance Directives No October 10:23am Summary Purpose Additional Source Comments Goals (unrecognized section and content) Goals may be documented in a n alternate section No data available for this section No data available for this sectionNo InformationNo InformationNo Information No data available for this sectionGoals may be documented in an alternate section Source Comments (unrecognize d section and content) In the event this informatio n is protected by the Federal Confidentiality of Alcohol and Drug Abuse Patient Records regulations: The Federal rules restrict any use of the information to criminally investigate or prosecute any alcohol or drug abuse patient.[facility] HospitalIn the event this information is protected by the Federal Confidentiality of Alcohol and Drug Abuse Patient Records regulations: The Federal rules restrict any use of the information to criminally investigate or prosecute any alcohol or drug abuse patient.[facility] HospitalIn the event this information is protected by the Federal Confidentiality of Alcohol and Drug Abuse Patient Records regulations: The Federal rules restrict any use of the information to criminally investigate or prosecute any alcohol or drug abuse patient.[facility] HospitalIn the event this information is protected by the Federal Confidentiality of Alcohol and Drug Abuse Patient Records regulations: The Federal rules restrict any use of the information to criminally investigate or prosecute any alcohol or drug abuse patient.[facility] Reason for Visit (unrecogniz ed section and content) Reason Comments Refill Request Reason Comments Breast Cancer Reason Comments Orders Reason Comments Breast Cancer 1 year follow up Care Teams (unrecognized sec tion and 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) 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 Relationship Specialty Start Date End Date Samm Palmer PCP - General Family Practice 01/15/12 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 Relationship Specialty Start Date End Date Juma Buckner DO [address] [place] [address] PCP - General Internal Medicine 06/16/22 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 Relationship Specialty Start Date End Date Juma Buckner DO [address] [place] [address] PCP - General Internal Medicine 06/16/22 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 Relationship Specialty Start Date End Date Juma Buckner DO [address] [place] [address] PCP - General Internal Medicine 06/16/22 Team Status: Active Member Role Status Dates Juma Buckner DO Primary Care Provider Active Team Status: Active Member Role Status Dates Juma Buckner DO Primary Care Provider Active Start: April 04, 2024 Wu Velez MD Attending Provider Active St art: April 04, 2024 Team Status: Inactive Member Role Status Dates Juma Buckner DO Primary Care Provide r, Attending Provider Active Start: April 13, 2024 End: April 13, 2024 Team Status: Active Member Role Status Dates Juma Buckner DO Primary Care Provide r, Attending Provider Active Start: April 13, 2024 INFORMATION SOURCE (unrecogn ized section and content) DATE CREATED AUTHOR 04/08/2022 [facility] DATE CREATED AUTHOR AUTHOR'S ORGANIZ ATION 07/18/2023 [facility] DATE CREATED AUTHOR AUTHOR'S ORGANIZ ATION 03/05/2024 [facility] DATE CREATED AUTHOR AUTHOR'S ORGANIZ ATION 04/20/2024 [facility] FOR RECORDS PERTAINING TO PATIENTS WHO ARE [...] BE BASED ON THE PRIMARY CLINICAL RECORDS. [facility] provides no warranty or guarantee of the accuracy or completeness of information in this document.
== END 2024-04-22 09:03 | disposition home or self-care (01) ==
LOC: RAD 09:04
PROVIDERS: PCP Internal Medicine; Visit Provider Urology
DX: N20.0 Calculus of kidney (principal)
CPT/HCPCS: 74018

== ENCOUNTER 2024-05-16 12:30 | Outpatient (OUT) | payer OTHER, SELFPAY ==
--- OUTSIDE RECORDS SUMMARY | 2024-05-16 12:41 | XMS_ITS | CCD ---
Author Organization [facility] Care Team Providers Care 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 Name Role Phone Adrian Oneal Jr Attending Provider [phone] Juma Buckner Primary Care Provider [phone] Samm Palmer Primary Care Provider JUMA BUCKNER Primary Care Physician PATRICIA, DR [...] Unavailable DO Juma Buckner Primary Care Provider DO Juma Buckner Attending Provider Juma Buckner Attending Unavailable Juma Buckner Primary Care Unavailable Juma Buckner Admitting Unavailable Allergies Allergy Classification Reported Allergen(s) Allergy Type Date of Onset Reaction(s) Facility Cephalosporins (antibiotic) (1 source) Cephalexin Drug Allergy 1 [facility] (10 sources) Cephalexin; Translations: [cephalexin] Drug Allergy 7 Unknown, Weal (disorder) [facility] (5 sources) Cephalexin; Translations: [Keflex] Drug Allergy [facility] (1 source) Cephalexin Drug Allergy 3 [facility] Rep[facility] Medications Current Medications Medication Drug [...] Antibacterial, Polymyxin-class Antibacterial, Corticosteroid Start: 10-28-2022 Maxitrol 3.5-23889-0.1 apply directly under left eyelashes Ophthalmic Three [...] for 30 day(s), 120 tab(s), Refill(s) 11, [id number], 165, cm, 02/29/24 11:29:00 EDT, Height/Length Dosing, [...] BID, # 180 tab(s), Refills(s) 3, Pharmacy: [facility] #[id number], 165, cm, 08/06/22 15:18:00 EST, Height/Length Dosing, [...] Basophils (Bld) [#/Vol] 0.0 10 3/uL 0.0-0.1 [facility] Basophils/100 WBC Auto (Bld) on 04-13-2024 Basophils/100 WBC (Bld) 0.7 % 0.2-2.0 [facility] Eosinophils/100 WBC Auto (Bl d)on 04-13-2024 Eosinophils/100 WBC (Bld) 1.2 % 0.9-7.0 [facility] Erythrocyte distribution wid th Auto (RBC) [Ratio]on 04-13-2024 Erythrocyte distribution width (RBC) [Ratio] 12.1 % 11.0-15.0 [facility] Hematocrit Auto (Bld) [Volum e fraction]on 04-13-2024 Hematocrit (Bld) [Volume fraction] 41.0 % 36.0-48.0 [facility] Hemoglobin [Mass/volume] in Bloodon 04-13-2024 Hemoglobin (Bld) [Mass/Vol] 13.6 g/dL 12.0-16.0 [facility] Chip 04-13-2024 L Specimen: [id number] Received: 04/18/24 Status: GEMA Oneill Num: [id number] Spec Type: Impression Subm Dr: Juma Buckner DO Tissues: PATHPER Procedures: PATHREVIEW Age/ Patient Sex Location Account Attending Physician ArmandoJo-Ann 64/F LABELL [id number] Juma Buckner DO SPEC NUM: [id number] RECD: 04/18/24 STATUS: GEMA ONEILL NUM: [id number] GILA: 04/13/[address]: Juma Buckner DO ENTERED: 04/18/[address] [facility] [address]: SPEC TYPE: Impression DEPT: MALENA Alvarez ENTERED BY: [id number] RECV BY: [id number] ORDERED: PATHREVIEW ORDERED: PATHREVIEW Pathologist Review Abnormal [...] antineoplastics. Continuous clinical correlations are suggested CPT: 62501 -------- -------- Specimen: [id number] Received: 04/18/24 Status: GEMA Quintanaariel Num: [id number] Spec Type: Impression Subm Dr: Juma Buckner DO Tissues: PATHPER Procedures: PATHREVIEW -------- Patient: Jo-Ann Roberts [id number] (Continued) -------- Signed (signature on file) Yue Braga MD 04/18/242006 Normal [facility] Laboratory - Hematology and Cell countson 04-13-2024 ESR (Bld) [Velocity] 6 mm/h <=30 [facility] Immature granulocytes/100 WBC (Bld) 0.2 % 0.0-0.5 [facility] Leukocytes [#/volume] correc noe for nucleated erythrocytes in Blood by Automated counon 04-13-2024 WBC corrected for nucl RBC Auto (Bld) [#/Vol] 5.7 10 3/uL 4.0-11.0 [facility] Lymphocytes Auto (Bld) [#/Vo l]on 04-13-2024 Lymphocytes (Bld) [#/Vol] 1.1 10 3/uL Low 1.2-3.8 [facility] Lymphocytes/100 WBC Auto (Bl d)on 04-13-2024 Lymphocytes/100 WBC (Bld) 18.8 % Low 20.5-60.0 [facility] MCH Auto (RBC) [Entitic mass ]on 04-13-2024 MCH (RBC) [Entitic mass] 31.3 pg 26.7-34.0 [facility] MCHC Auto (RBC) [Mass/Vol]on 04-13-2024 MCHC (RBC) [Mass/Vol] 33.2 g/dL 29.9-35.2 [facility] MCV Auto (RBC) [Entitic vol] on 04-13-2024 MCV (RBC) [Entitic vol] 94.5 fL 81.0-99.0 [facility] Monocytes Auto (Bld) [#/Vol] on 04-13-2024 Monocytes (Bld) [#/Vol] 0.3 10 3/uL 0.3-0.8 [facility] Monocytes/100 WBC Auto (Bld) on 04-13-2024 Monocytes/100 WBC (Bld) 5.4 % 1.7-12.0 [facility] Neutrophils Auto (Bld) [#/Vo l]on 04-13-2024 Neutrophils (Bld) [#/Vol] 4.2 10 3/uL 1.4-6.5 [facility] Neutrophils/100 WBC Auto (Bl d)on 04-13-2024 Neutrophils/100 WBC (Bld) 73.7 % 43.0-75.0 [facility] No Panel Informationon 04-13 C-Reactive Protein, Quantitative <0.50 mg/dL <=0.50 [facility] Eosinophils # (Auto) 0.1 10 3/uL 0.0-0.7 [facility] Immature Granulocyte # (Auto) 0.01 10 3/uL 0.00-0.03 [facility] Platelet mean volume Auto (B ld) [Entitic vol]on 04-13-2024 Platelet mean volume (Bld) [Entitic vol] 11.2 fL 9.5-13.5 [facility] Platelets Auto (Bld) [#/Vol] on 04-13-2024 Platelets (Bld) [#/Vol] 199 10 3/uL 150-450 [facility] RBC Auto (Bld) [#/Vol]on RBC (Bld) [#/Vol] 4.34 10 6/uL 4.20-5.40 [facility] Serum or plasma free cefurox haylee measurement (mass/volume)on 04-13-2024 Cefuroxime free [Mass/Vol] Negative Negative [facility] Comment on above: Performed at: [employer] [facility] [employer] [address] [id number] Director: Dima Sosa PhD, Phone: [phone] Activated partial thrombopla stin time (aPTT) in platelet poor plasma by coagulation aon 04-04-2024 aPTT Coag (PPP) [Time] 29.7 s 22.3-36.2 [facility] Basophils Auto (Bld) [#/Vol] on 04-04-2024 Basophils (Bld) [#/Vol] 0.0 10 3/uL 0.0-0.1 [facility] Basophils/100 WBC Auto (Bld) on 04-04-2024 Basophils/100 WBC (Bld) 1.5 % 0.2-2.0 [facility] Eosinophils/100 WBC Auto (Bl d)on 04-04-2024 Eosinophils/100 WBC (Bld) 3.0 % 0.9-7.0 [facility] Erythrocyte distribution wid th Auto (RBC) [Ratio]on 04-04-2024 Erythrocyte distribution width (RBC) [Ratio] 12.0 % 11.0-15.0 [facility] Estimated glomerular filtrat ion rate (GFR) non- Americanon 04-04-2024 GFR/1.73 sq M.predicted among non-blacks MDRD (S/P/Bld) [Vol rate/Area] 58 mL/min/{1.73_m2} Low >=60 [facility] Hematocrit Auto (Bld) [Volum e fraction]on 04-04-2024 Hematocrit (Bld) [Volume fraction] 42.8 % 36.0-48.0 [facility] Hemoglobin [Mass/volume] in Bloodon 04-04-2024 Hemoglobin (Bld) [Mass/Vol] 14.2 g/dL 12.0-16.0 [facility] INR in Platelet poor plasma by Coagulation assayon 04-04-2024 INR Coag (PPP) [Relative time] 1.13 {INR} [facility] Comment on above: DESIRED INR:2.0-3.0 CONDITIONS NOT LISTED BELOW2.5-3.5 FOR PROSTHETIC HEART VALVE REPLACEMENT2.5-3.5 RECURRENT THROMBOSIS Laboratory - Chemistry and C hemistry - challengeon 04-04-2024 Calcium [Mass/Vol] 8.9 mg/dL 8.5-10.1 [facility] Chloride [Moles/Vol] 104 mmol/L 98-107 [facility] CO2 [Moles/Vol] 27.6 mmol/L 21.0-32.0 [facility] Creatinine [Mass/Vol] 0.97 mg/dL 0.55-1.02 [facility] GFR/1.73 sq M.predicted MDRD (S/P/Bld) [Vol rate/Area] mL/min/{1.73_m2} >=60 [facility] Glucose [Mass/Vol] 92 mg/dL 74-106 [facility] Potassium [Moles/Vol] 4.0 mmol/L 3.5-5.1 [facility] Sodium [Moles/Vol] 140 mmol/L 136-145 [facility] Urea nitrogen [Mass/Vol] 25.0 mg/dL High 7.0-18.0 [facility] Urea nitrogen/Creatinine [Mass ratio] 25.8 mg/mg [facility] Laboratory - Hematology and Cell countson 04-04-2024 Immature granulocytes/100 WBC (Bld) 0.4 % 0.0-0.5 [facility] Leukocytes [#/volume] correc noe for nucleated erythrocytes in Blood by Automated counon 04-04-2024 WBC corrected for nucl RBC Auto (Bld) [#/Vol] 2.7 10 3/uL Low 4.0-11.0 [facility] Lymphocytes Auto (Bld) [#/Vo l]on 04-04-2024 Lymphocytes (Bld) [#/Vol] 0.9 10 3/uL Low 1.2-3.8 [facility] Lymphocytes/100 WBC Auto (Bl d)on 04-04-2024 Lymphocytes/100 WBC (Bld) 33.3 % 20.5-60.0 [facility] MCH Auto (RBC) [Entitic mass ]on 04-04-2024 MCH (RBC) [Entitic mass] 31.0 pg 26.7-34.0 [facility] MCHC Auto (RBC) [Mass/Vol]on 04-04-2024 MCHC (RBC) [Mass/Vol] 33.2 g/dL 29.9-35.2 [facility] MCV Auto (RBC) [Entitic vol] on 04-04-2024 MCV (RBC) [Entitic vol] 93.4 fL 81.0-99.0 [facility] Monocytes Auto (Bld) [#/Vol] on 04-04-2024 Monocytes (Bld) [#/Vol] 0.4 10 3/uL 0.3-0.8 [facility] Monocytes/100 WBC Auto (Bld) on 04-04-2024 Monocytes/100 WBC (Bld) 15.0 % High 1.7-12.0 [facility] Neutrophils Auto (Bld) [#/Vo l]on 04-04-2024 Neutrophils (Bld) [#/Vol] 1.3 10 3/uL Low 1.4-6.5 [facility] Neutrophils/100 WBC Auto (Bl d)on 04-04-2024 Neutrophils/100 WBC (Bld) 46.8 % 43.0-75.0 [facility] No Panel Informationon 04-04 Eosinophils # (Auto) 0.1 10 3/uL 0.0-0.7 [facility] Immature Granulocyte # (Auto) 0.01 10 3/uL 0.00-0.03 [facility] Platelet mean volume Auto (B ld) [Entitic vol]on 04-04-2024 Platelet mean volume (Bld) [Entitic vol] 10.9 fL 9.5-13.5 [facility] Platelets Auto (Bld) [#/Vol] on 04-04-2024 Platelets (Bld) [#/Vol] 198 10 3/uL 150-450 [facility] Prothrombin time (PT)on 03-08 PT Coag (PPP) [Time] 11.8 s High 9.0-11.6 [facility] RBC Auto (Bld) [#/Vol]on RBC (Bld) [#/Vol] 4.58 10 6/uL 4.20-5.40 [facility] Serum or plasma anion gap de terminationon 04-04-2024 Anion gap [Moles/Vol] 12.4 mmol/L [facility] Ambulatory Visit Summaryon 0 02-29-2024 Ambulatory [...] [facility] [address], [place] [address] [phone] Medications What How Much When Instructions New potassium citrate (potassium CITRATE 10 mEq ER Tab) 2 Tablets By Mouth 2 times a day Duration: 30 Days Refills: 11 Pickup at [facility] #[id number] Unchanged ergocalciferol (Vitamin D) By Mouth Every week Contact prescribing physician if questions or concerns Unchanged Non-Formulary Medication (Calcium) By Mouth Every day Contact prescribing physician if questions or concerns Pharmacy Information [facility] #[id number]: [address] [place], [place] [id number] [phone] What How Much When Comments Stop Taking [...] ? Eat (more content not included)... Normal [facility] Patient Educationon 02-29-20 Patient Education Nephrology Dietary [...] Spinach (cooked), rhubarb, beets, sweet potatoes, and Kittitian chard. ? Peanuts. ? Potato chips, central african fries, and baked potatoes with skin on. ? Nuts and nut products. ? Chocolate. ? If you regularly take a diuretic medicine, make sure to eat at least 1 or 2 servings of fruits or vegetables that are high in potassium each day. These include: ? Avocado. ? Banana. ? Sampson, prune, carrot, or tomato juice. ? Baked [...] fish oil, or vitamin B6. ? Take iccr-guf-dukncjf and prescription medicines only as told by your health care provider. These include supplements. What foods sh (more content not included)... Normal [facility] Urology Office/Clinic Noteon 02-29-2024 Urology Office/Clinic Note Chief Complaint kidney stones and asymptomatic microhematuria HPI Staff 1 yr with KUB @ [facility] 02/24/24 due to kidney stones. Previous DX: asymptomatic microscopic hematuria, dysuria, gross hematuria, hydronephrosis with urinary obstruction due to ureteral calculus, kidney stones, lower abdominal pain, microscopic hematuria, ureteral stone. S/P ESWL 04/11/21. Started Effer-K 25mEq BID at prior OV. Electrolyte panel was not done. Could not find any pertaining labs from PCP ([facility], [facility], [facility] either. Dysuria: no Incomplete bladder emptying: no [...] only been taking this once per day. [place] bloated when she took bid. Advised pt [...] [facility] [address], [place] [address] [phone] Additional Instructions: 1 yr w/ KUB Patient [...] Tobacco Use:. Household (more content not included)... [facility] Comment on above: Result Comment: Elec tronically Signed By: Wu VELEZ MD\.br\Date and Time Signed: 02/29/24 12:00 EDT\.br\Electronically Co-Signed By: Nella Carrillo.br\Date and Time Co-Signed: 02/29/24 11:56 EDT RAD - MISCon 02-25-2024 RAD - MISC [id number] [facility] CNOVSPon 07-16-2023 CNOVSP Visit (SP) Office (HEMASA) JO-ANN [id number]) 1960 F Date Time Provider Department 07/16/23 [...] Diagnosis Date Breast cancer (HCC) Right; ER+ WA- PAST SURGICAL HISTORY: PAST SURGICAL HISTORY Procedure [...] 197 RADIOLOGY/OTHER STUDIES: 05/04/2023 Bilateral diagnostic mammogram ([facility]) Stable postsurgical change in the right breast. No mammographic evidence of malignancy.. Routine follow-up in 1 year recommended. 05/02/2022 Bone density DEXA ([facility]) Osteoporosis. Max T score -2.6 left femoral neck, left femur, and right femur. ASSESSMENT/PLAN: 1. 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 Normal [facility] CNPNon 07-16-2023 CNPN Telephone (NCCAP) JO-ANN ROBERTS ([id number]) 1960 F Date Time Provider Department 07/16/23 NAN SARABIA During your visit today, we recorded the following information about you: Ayala James 07/16/2023 3:[address] new DEXA order. I believe the DXA Forearm is incorrect? Thanks! Ryan Chirinos APRN.COATER OPERATOR INSULATION BOARD 07/17/2023 11:40 AM Signed New order placed. Ryan Daniels APRN.COATER OPERATOR INSULATION BOARD Allergies As of Date: 07/16/2023 Noted Allergy Reaction KEFLEX (CEPHALEXIN) 01/14/2017 16 - Unknown Date Reviewed: 07/16/2023 Reviewed by: Akua Jorge MA - Fully Assessed Reason for Visit: Orders [681] Primary Visit Diagnosis:Osteopenia of multiple sites [M85.89] Order(s):DXA-AXIAL SKELETON [[id number]] Order #: [id number] FUTURE Prescriptions as of 07/17/2023 - KLOR-CON/EF 25 mEq disintegrating tablet - anastrozole (ARIMIDEX) 1 mg tablet TAKE 1 TABLET DAILY - CALCIUM CARBONATE/VITAMIN D3 (CALCIUM + D ORAL) Take by mouth. Problem List As Of Date 07/16/2023 Noted Resolved Breast CA (HCC) [C50.919] 09/02/2012 09/16/2018 Malignant neoplasm of upper-outer quadrant of r*09/16/2018 Osteopenia [M85.80] 09/18/2018 Encounter Status:Closed by AYALA JAMES on 07/17/23 [facility] CNPMerle 04-27-2023 CNPN Telephone (HEMTSA) JO-ANN ROBERTS ([id number]) 1960 F Date Time Provider Department 04/27/23 [...] pended for signature. PSS: Please fax to [phone] Thanks. 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 Faxed order April 27, 2023 4:23 PM Ayala James Allergies As of Date: 04/27/2023 Noted Allergy Reaction KEFLEX (CEPHALEXIN) 01/14/2017 16 - Unknown Date Reviewed: 06/16/2022 Reviewed by: Arina Smith - Fully Assessed Reason for Visit: Orders [681] Primary Visit Diagnosis:Encounter for screening mammogram for malignant neoplasm of breast [Z12.31] Order(s):MEMO SCREENING [[id number]] Order #: [id number] FUTURE Prescriptions as of 04/27/2023 - anastrozole (ARIMIDEX) 1 mg tablet TAKE 1 TABLET DAILY - CALCIUM CARBONATE/VITAMIN D3 (CALCIUM + D ORAL) Take by mouth. Problem List As Of Date 04/27/2023 Noted Resolved Breast CA (HCC) [C50.919] 09/02/2012 09/16/2018 Malignant neoplasm of upper-outer quadrant of r*09/16/2018 Osteopenia [M85.80] 09/18/2018 Encounter Status:Closed by DIPTI ULLOA on 04/27/23 [facility] OXALATE 24HR URINEon 022 Oxalates, Urine 14 mg/L Normal Undefined [facility] Comment on above: Performed By: #### U NICHOLE 24 #### [facility] [address] [place] [address] Dr. Lizzette Braga Oxalates, Urine 24hr 28 mg/24 hr Normal 4-31 [facility] Comment on above: Performed By: #### U NICHOLE 24 #### [facility] [address] [place] [address] Dr. Lizzette Braga CITRATE URINE 24HRon 022 Citric Acid, U, 24hr 265 mg/24 hr Critically low 320-1240 [facility] Comment on above: Result Comment: This test was developed and its performance characteristics determined by [facility]. It has not been cleared or approved by the Food and Drug Administration. Performed By: #### U NICHOLE 24 #### [facility] [address] [place] [address] Dr. Lizzette Braga Citric Acid, Urine 131 mg/L Normal Undefined [facility] Comment on above: Performed By: #### U NICHOLE 24 #### [facility] [address] [place] [address] Dr. Lizzette Braga MAGNESIUM 24HR URINEon 04-03 Magnesium 24hr Urine 68.9 mg/24 hr Normal 12.0-293.0 T [facility] Comment on above: Performed By: #### U NCIHOLE 24 #### [facility] [address] [place] [address] Dr. Lizzette Braga Magnesium UR 3.4 mg/dL Normal Not Estab. [facility] Comment on above: Performed By: #### U NICHOLE 24 #### [facility] [address] [address] [address] Lizzette Braga PHOSPHORUS 24HR URINEon 03-08 Phosphorus, Urine 21.6 mg/dL Normal Not Estab. [facility] Comment on above: Performed By: #### U NICHOLE 24 #### [facility] [address] [place] [address] Dr. Lizzette Braga Phosphorus, Urine 24hr 437 mg/24 hr Normal 261-1078 [facility] Comment on above: Performed By: #### U NICHOLE 24 #### [facility] [address] [place] [address] Dr. Lizzette Braga URIC ACID 24 HR URINEon 03-08 Uric Acid, Urine 19.0 mg/dL Normal Not Estab. The [facility] Comment on above: Performed By: #### U NICHOLE 24 #### [facility] [address] [place] [address] Dr. Lizzette Braga Uric Acid, Urine 24hr 384.8 mg/24 hr Normal 142.3-713. 2 [facility] Comment on above: Performed By: #### U NICHOLE 24 #### [facility] [address] [place] [address] Dr. Lizzette Braga CALCIUM 24 HR URINEon 2021 CALC, 24 HR UR 141.8 mg/24 hr Normal 100.0-300.0 [facility] Comment on above: Performed By: #### U NICHOLE 24 #### [facility] [address] [place] [address] Dr. Lizzette Braga UR CALCIUM 7.0 mg/dL Normal 5.1-21.0 [facility] Comment on above: Performed By: #### U NICHOLE 24 #### [facility] [address] [place] [address] Dr. Lizzette Braga CREA 24 HR URINEon 2 CREA, 24 HR UR 896.06 mg/24 hr Normal 800.00-1,8 00.0 0 [facility] Comment on above: Performed By: #### U NICHOLE 24 #### [facility] [address] [place] [address] Dr. Lizzette Braga URINE CREAT 44.25 mg/dL Normal 20.00-300.00 [facility] Comment on above: Performed By: #### U NICHOLE 24 #### [facility] [address] [place] [address] Dr. Lizzette Braga PTH INTACTon 04-01-2022 PTH, Intact 36 pg/mL Normal 15-65 [facility] Comment on above: Performed By: #### U NICHOLE 24 #### [facility] [address] [place] [address] Dr. Lizzette Braga SODIUM 24 HR URINEon 022 NA, 24 HR UR 99 mmol/24 hr Normal 40-220 [facility] Comment on above: Performed By: #### U NICHOLE 24 #### [facility] [address] [place] [address] Dr. Lizzette Braga Sodium (U) [Moles/Vol] 49 mmol/L Normal 30-90 [facility] Comment on above: Performed By: #### U NICHOLE 24 #### [facility] [address] [place] [address] Dr. Lizzette Braga UR TOT VOL 2025 ml/24 HR Normal [facility] Comment on above: Performed By: #### U NICHOLE 24 #### [facility] [address] [place] [address] Dr. Lizzette Braga BUNon 03-31-2022 Urea nitrogen [Mass/Vol] 18.0 mg/dL Normal 7.0-18.0 [facility] Comment on above: Performed By: #### C O2, CA, URIC, NA, K, CREA, BUN, CL #### [facility] [address] [place] [address] Dr. Lizzette Braga CALCIUMon 03-31-2022 Calcium [Mass/Vol] 9.0 mg/dL Normal 8.5-10.1 [facility] Comment on above: Performed By: #### U NICHOLE 24 #### [facility] [address] [place] [address] Dr. Lizzette Braga CHLORIDEon 03-31-2022 Chloride [Moles/Vol] 105 mmol/L Normal 98-107 [facility] Comment on above: Performed By: #### C O2, CA, URIC, NA, K, CREA, BUN, CL #### [facility] [address] [address] [address] Lizzette Braga CO2on 03-31-2022 CO2 [Moles/Vol] 27.7 mmol/L Normal 21.0-32.[address] [facility] Comment on above: Performed By: #### C O2, CA, URIC, NA, K, CREA, BUN, CL #### [facility] [address] [address] [address] Lizzette Braga CREATININEon 03-31-2022 Creatinine [Mass/Vol] 0.96 mg/dL Normal 0.55-1.02 [facility] Comment on above: Performed By: #### C O2, CA, URIC, NA, K, CREA, BUN, CL #### [facility] [address] [place] [address] Dr. Lizzette Braga EGFR-AF AUSTRIAN >60 Normal >=[address] [facility] Comment on above: Performed By: #### C O2, CA, URIC, NA, K, CREA, BUN, CL #### [facility] [address] [place] [address] Dr. Lizzette Braga EGFR-NON AF AUSTRIAN 59 mL/min/1.73m2 Critically low >=60 [facility] Comment on above: Performed By: #### C O2, CA, URIC, NA, K, CREA, BUN, CL #### [facility] [address] [place] [address] Dr. Lizzette Braga NAon 03-31-2022 Sodium [Moles/Vol] 141 mmol/L Normal 136-145 [facility] Comment on above: Performed By: #### C O2, CA, URIC, NA, K, CREA, BUN, CL #### [facility] [address] [place] [address] Dr. Lizzette Braga POTASSIUMon 03-31-2022 Potassium [Moles/Vol] 4.1 mmol/L Normal 3.5-5.1 [facility] Comment on above: Performed By: #### C O2, CA, URIC, NA, K, CREA, BUN, CL #### [facility] [address] [address] [address] Lizzette Braga URIC ACID SERUMon 03-31-2022 Urate [Mass/Vol] 3.0 mg/dL Normal 2.6-6.[address] [facility] Comment on above: Performed By: #### C O2, CA, URIC, NA, K, CREA, BUN, CL #### [facility] [address] [address] [address] Lizzette Braga XR KUB 1 VIEWon [...] ISRRAEL COOPER Date: 2022-02-28 06:17 Normal [facility] CALCULI, URINARYon 1 2,8 Dihydroxyadenine Normal [facility] Comment on above: Performed By: #### U NICHOLE 24 #### [facility] [address] [place] [address] Dr. Lizzette Braga Ammonium Acid Urate Normal [facility] Comment on above: Performed By: #### U NICHOLE 24 #### [facility] [address] [address] [address] Lizzette Braga Bilirubin Ql (U) Normal [facility] Comment on above: Performed By: #### U NICHOLE 24 #### [facility] [address] [address] [address] Lizzette Braga Ca Oxalate Dihydrate 20 % Normal [facility] Comment on above: Performed By: #### U NICHOLE 24 #### [facility] [address] [address] [address] Lizzette Braga CaHPO4 (Brushite) Normal [facility] Comment on above: Performed By: #### U NICHOLE 24 #### [facility] [address] [address] [address] Lizzette Braga Calcium Bilirubinate Normal [facility] Comment on above: Performed By: #### U NICHOLE 24 #### [facility] [address] [address] [address] Lizzette Braga Calcium Carbonate Normal [facility] Comment on above: Performed By: #### U NICHOLE 24 #### [facility] [address] [address] [address] Lizzette Braga Calcium Oxalate Monohydrate 80 % [facility] Comment on above: Performed By: #### U NICHOLE 24 #### [facility] [address] [address] [address] Lizzette Braga Calcium Palmitate [facility] Comment on above: Performed By: #### U NICHOLE 24 #### [facility] [facility] [address] [address] [address] Lizzette Braga Calcium Phosphate [facility] Comment on above: Performed By: #### U NICHOLE 24 #### [facility] [address] [address] [address] Lizzette Braga Calcium Stearate [facility] Comment on above: Performed By: #### U NICHOLE 24 #### [facility] [address] [address] [address] Lizzette Braga Carbonate Apatite [facility] Comment on above: Performed By: #### U NICHOLE 24 #### [facility] [address] [address] [address] Lizzette Braga Cellular Material [facility] Comment on above: Performed By: #### U NICHOLE 24 #### [facility] [address] [address] [address] Lizzette Braga Cholesterol [facility] Comment on above: Performed By: #### U NICHOLE 24 #### [facility] [address] [address] [address] Lizzette Braga Color (U) Brown [facility] Comment on above: Performed By: #### U NICHOLE 24 #### [facility] [address] [address] [address] Lizzette Braga Comment Normal [facility] Comment on above: Performed By: #### U NICHOLE 24 #### [facility] [address] [address] [address] Lizzette Braga Comment: Comment Normal [facility] Comment on above: Result Comment: Lyle carias questions regarding Calculi Analysis contact [facility] at: [phone]. Performed By: #### U NICHOLE 24 #### [facility] [address] [address] [address] Lizzette Braga Composition Comment Normal [facility] Comment on above: Result Comment: Perc entage (Represents the % composition) Performed By: #### U NICHOLE 24 #### [facility] [address] [place] [address] Dr. Lizzette Braga Cystine Normal [facility] Comment on above: Performed By: #### U NICHOLE 24 #### [facility] [address] [address] [address] Lizzette Braga Disclaimer: Comment Normal [facility] Comment on above: Result Comment: This test was developed and its performance characteristics determined by [facility]. It has not been cleared or approved by the Food and Drug Administration. Performed By: #### U NICHOLE 24 #### [facility] [address] [place] [address] Dr. Lizzette Braga Dried Blood Normal [facility] Comment on above: Performed By: #### U NICHOLE 24 #### [facility] [address] [address] [address] Lizzette Braga Drug or Metabolite Normal [facility] Comment on above: Performed By: #### U NICHOLE 24 #### [facility] [address] [address] [address] Lizzette Braga Hydroxyapatite Normal [facility] Comment on above: Performed By: #### U NICHOLE 24 #### [facility] [address] [place] [address] Dr. Lizzette Braga Mg NH4 PO4 (Struvite) Normal [facility] Comment on above: Performed By: #### U NICHOLE 24 #### [facility] [address] [address] [address] Lizzette Braga MgHPO4 (Formerly [facility]) Normal [facility] Comment on above: Performed By: #### U NICHOLE 24 #### [facility] [address] [address] [address] Lizzette Braga Other component(s) Normal [facility] Comment on above: Performed By: #### U NICHOLE 24 #### [facility] [address] [address] [address] Lizzette Braga PDF . Normal [facility] Comment on above: Performed By: #### U NICHOLE 24 #### [facility] [address] [address] [address] Lizzette Braga Photo Comment [facility] Comment on above: Result Comment: Phot ograph will follow under a separate cover Performed By: #### U NICHOLE 24 #### [facility] [address] [place] [address] Dr. Lizzette Braga Please note: Comment [facility] Comment on above: Result Comment: Calc romelia report will follow via computer, mail or look out tower fire watcher delivery. Performed By: #### U NICHOLE 24 #### [facility] [address] [place] [address] Dr. Lzizette Braga Size 3x3 [facility] Comment on above: Result Comment: Mult iple pieces received. Dimensions of the largest piece reported. Performed By: #### U NICHOLE 24 #### [facility] [address] [place] [address] Dr. Lizzette Braga Sodium Acid Urate Normal [facility] Comment on above: Performed By: #### U NICHOLE 24 #### [facility] [address] [address] [address] Lizzette Braga Source Comment [facility] Comment on above: Result Comment: Not provided Performed By: #### U NICHOLE 24 #### [facility] [address] [place] [address] Dr. Lizzette Braga Triamterene [facility] Comment on above: Performed By: #### U NICHOLE 24 #### [facility] [address] [address] [address] Lizzette Braga Uric Acid Normal [facility] Comment on above: Performed By: #### U NICHOLE 24 #### [facility] [address] [place] [address] Dr. Lizzette Braga Uric Acid Dihydrate Normal [facility] Comment on above: Performed By: #### U NICHOLE 24 #### [facility] [address] [address] [address] Lizzette Braga Weight 84 mg Normal [facility] Comment on above: Performed By: #### U NICHOLE 24 #### [facility] [address] [place] [address] Dr. Lizzette Braga Xanthine Normal [facility] Comment on above: Performed By: #### U NICHOLE 24 #### [facility] [address] [place] [address] Dr. Lizzette Braga XR KUB 1 VIEWon [...] by: ISRRAEL COOPER Date: 2021 07:38 Normal [facility] COVID-19 Positive/Negativeon 02-25-2021 SARS-CoV-2 (COVID-19) N gene TREVOR+probe Ql (Resp) Negative Negative [facility] Comment on above: Testing for SARS-CoV -2 by RT-PCRThis test was developed and its performance characteristics determined by [employer] ([employer]) and validated at the [facility]. This test has not been FDA [...] (Bld) [#/Vol] 0.0 10*3/uL 0.0-0.2 [facility] Basophils/100 WBC Auto (Bld) on 02-14-2021 Basophils/100 WBC (Bld) 0.5 % [facility] Blood hemoglobin measurement (mass/volume)on 02-14-2021 Hemoglobin (Bld) [Mass/Vol] 14.3 g/dL 11.8-15.4 [facility] Blood leukocytes automated c ount (number/volume)on 02-14-2021 WBC (Bld) [#/Vol] 5.0 10*3/uL 4.5-11.0 [facility] Creatinine and Glomerular fi ltration rate.predicted panel (S/P/Bld)on 02-14-2021 Creatinine [Mass/Vol] 0.89 mg/dL 0.44-1.03 [facility] Eosinophils Auto (Bld) [#/Vo l]on 02-14-2021 Eosinophils (Bld) [#/Vol] 0.1 10*3/uL 0.0-0.45 [facility] Eosinophils/100 WBC Auto (Bl d)on 02-14-2021 Eosinophils/100 WBC (Bld) 1.3 % [facility] Erythrocyte distribution wid th Auto (RBC) [Ratio]on 02-14-2021 Erythrocyte distribution width (RBC) [Ratio] 12.8 % 11.9-15.3 [facility] Estimated glomerular filtrat ion rate (GFR) non- Americanon 02-14-2021 GFR/1.73 sq M.predicted among non-blacks MDRD (S/P/Bld) [Vol rate/Area] > 60 mL/Min [facility] Hematocrit Auto (Bld) [Volum e fraction]on 02-14-2021 Hematocrit (Bld) [Volume fraction] 42.9 % 34.0-46.4 [facility] Laboratory - Hematology and Cell countson 02-14-2021 Nucleated RBC/100 WBC (Bld) [Ratio] 0.3 % 0-0.5 [facility] Lymphocytes Auto (Bld) [#/Vo l]on 02-14-2021 Lymphocytes (Bld) [#/Vol] 1.0 10*3/uL 1.00-4.8 [facility] Lymphocytes/100 WBC Auto (Bl d)on 02-14-2021 Lymphocytes/100 WBC (Bld) 19.9 % [facility] MCH Auto (RBC) [Entitic mass ]on 02-14-2021 MCH (RBC) [Entitic mass] 31.1 pg 24.7-34.3 [facility] MCHC Auto (RBC) [Mass/Vol]on 02-14-2021 MCHC (RBC) [Mass/Vol] 33.5 g/dL 32.0-35.0 [facility] MCV Auto (RBC) [Entitic vol] on 02-14-2021 MCV (RBC) [Entitic vol] 93.0 fL 80-100 [facility] Monocytes Auto (Bld) [#/Vol] on 02-14-2021 Monocytes (Bld) [#/Vol] 0.4 10*3/uL 0.0-0.8 [facility] Monocytes/100 WBC Auto (Bld) on 02-14-2021 Monocytes/100 WBC (Bld) 7.1 % [facility] Neutrophils Auto (Bld) [#/Vo l]on 02-14-2021 Neutrophils (Bld) [#/Vol] 3.6 10*3/uL 1.8-7.7 [facility] Neutrophils/100 WBC Auto (Bl d)on 02-14-2021 Neutrophils/100 WBC (Bld) 71.2 % [facility] No Panel Informationon 02-14 Estimated GFR () > 60 mL/Min [facility] Comment on above: GFR estimated refere nce range: According to KDOQI guidelines, <60 ml/min/1.73m2 is sufficient to diagnose a patient with chronic kidney disease. Pharmacy Creatinine Clearance (Chem N/A [facility] Platelet mean volume Auto (B ld) [Entitic vol]on 02-14-2021 Platelet mean volume (Bld) [Entitic vol] 10.2 fL 6.3-10.7 [facility] Platelets Auto (Bld) [#/Vol] on 02-14-2021 Platelets (Bld) [#/Vol] 198 10*3/uL 150-450 [facility] RBC Auto (Bld) [#/Vol]on RBC (Bld) [#/Vol] 4.61 10*6/uL 3.60-5.[address] [facility] Serum or plasma calcium macario urement (mass/volume)on 02-14-2021 Calcium [Mass/Vol] 9.5 mg/dL 8.2-10.2 [facility] Serum or plasma chloride tylor surement (moles/volume)on 02-14-2021 Chloride [Moles/Vol] 100 mmol/L 95-114 [facility] Serum or plasma glucose macario urement (mass/volume)on 02-14-2021 Glucose [Mass/Vol] 93 mg/dL 70-100 [facility] Comment on above: ADA recommended refe rence rangeRandom Glucose Reference Range is dependent on time and content of last meal. Glucose of more than 200 mg/dL in a nonstressed, ambulatory subject supports the diagnosis of Diabetes Mellitus. Serum or plasma potassium me asurement (moles/volume)on 02-14-2021 Potassium [Moles/Vol] 4.2 mmol/L 3.5-5.1 [facility] Serum or plasma sodium measu rement (moles/volume)on 02-14-2021 Sodium [Moles/Vol] 139 mmol/L 136-146 [facility] Serum or plasma total carbon dioxide measurement (moles/volume)on 02-14-2021 CO2 [Moles/Vol] 24.7 mmol/L 22.0-30.0 [facility] Serum or plasma urea nitroge n measurement (mass/volume)on 02-14-2021 Urea nitrogen [Mass/Vol] 20 mg/dL 05-30 [facility] Vital Signs Date Time Vital Sign Value Performing Clinician Facility 02-29-2024 11:18-0400 Blood Pressure Location Wu VELEZ [facility] 02-29-2024 11:18-0400 Body temperature 98.6 [degF] Wu VELEZ [facility] 02-29-2024 11:18-0400 Diastolic blood pressure 84 mm[Hg] Wu VELEZ [facility] 02-29-2024 11:18-0400 Heart rate 69 /min Wu VELEZ [facility] 02-29-2024 11:18-0400 Respiratory rate 16 /min Wu VELEZ [facility] 02-29-2024 11:18-0400 Systolic blood pressure 124 mm[Hg] Wu VELEZ [facility] 07-16-2023 14:59-0500 Body height 165.1 cm Nan Sarabia MD Work Phone: [facility] 07-16-2023 14:59-0500 Body temperature 97.5 [degF] Nan Sarabia MD Work Phone: [facility] 07-16-2023 14:59-0500 Body weight 58.15 kg Nan Sarabia MD Work Phone: [facility] 07-16-2023 14:59-0500 Diastolic blood pressure 70 mm[Hg] Nan Sarabia MD Work Phone: [facility] 07-16-2023 14:59-0500 Heart rate 80 /min Nan Sarabia MD Work Phone: [facility] 07-16-2023 14:59-0500 Respiratory rate 16 /min Nan Sarabia MD Work Phone: [facility] 07-16-2023 14:59-0500 SaO2% (BldA) [Mass fraction] 100 % Nan Sarabia MD Work Phone: [facility] 07-16-2023 14:59-0500 Systolic blood pressure 159 mm[Hg] Nan Sarabia MD Work Phone: [facility] 06-19-2023 14:45-0400 Body height 161.29 cm Juma Ball Other [employer] Other 06-19-2023 14:45-0400 Body mass index (BMI) [Ratio] 22.14 kg/m2 Juma Ball Other [employer] Other 06-19-2023 14:45-0400 Body weight 57.61 kg Juma Ball Other [employer] Other 06-19-2023 14:45-0400 Diastolic blood pressure 79 mm[Hg] Juma Ball Other [employer] Other 06-19-2023 14:45-0400 Respiratory rate 12 /min Juma Ball Other [employer] Other 06-19-2023 14:45-0400 Systolic blood pressure 156 mm[Hg] Juma Ball Other [employer] Other 10-28-2022 16:30-0500 Body height 161.29 cm Karina Carlson Other [employer] Other 10-28-2022 16:30-0500 Body mass index (BMI) [Ratio] 21.97 kg/m2 Karina Aldo Other [employer] Other 10-28-2022 16:30-0500 Body temperature 97.3 [degF] Karina Carlson Other [employer] Other 10-28-2022 16:30-0500 Body weight 57.15 kg Karina Carlson Other [employer] Other 10-28-2022 16:30-0500 Respiratory rate 19 /min Karina Carlson Other [employer] Other 10-28-2022 16:30-0500 SaO2% (BldA) [Mass fraction] Karina Carlson Other [employer] Other 08-06-2022 15:15-0500 Blood Pressure Location Wu VELEZ [facility] 08-06-2022 15:15-0500 Diastolic blood pressure 80 mm[Hg] Wu VELEZ [facility] 08-06-2022 15:15-0500 Heart rate 72 /min Wu VELEZ [facility] 08-06-2022 15:15-0500 Systolic blood pressure 141 mm[Hg] Wu VELEZ [facility] 06-16-2022 15:31-0400 Body height 165.1 cm Nan Sarabia MD Work Phone: [facility] 06-16-2022 15:31-0400 Body temperature 97.39 [degF] Nan Sarabia MD Work Phone: [facility] 06-16-2022 15:31-0400 Body weight 55.97 kg Nan Sarabia MD Work Phone: [facility] 06-16-2022 15:31-0400 Diastolic blood pressure 67 mm[Hg] Nan Sarabia MD Work Phone: [facility] 06-16-2022 15:31-0400 Heart rate 82 /min Nan Sarabia MD Work Phone: [facility] 06-16-2022 15:31-0400 Respiratory rate 16 /min Nan Sarabia MD Work Phone: [facility] 06-16-2022 15:31-0400 SaO2% (BldA) [Mass fraction] 99 % Nan Sarabia MD Work Phone: [facility] 06-16-2022 15:31-0400 Systolic blood pressure 147 mm[Hg] Nan Sarabia MD Work Phone: [facility] 03-12-2022 10:42-0400 Blood Pressure Location Wu VELEZ [facility] 03-12-2022 10:42-0400 Diastolic blood pressure 89 mm[Hg] Wu VELEZ [facility] 03-12-2022 10:42-0400 Heart rate 85 /min Wu VELEZ [facility] 03-12-2022 10:42-0400 Respiratory rate 16 /min Wu VELEZ [facility] 03-12-2022 10:42-0400 Systolic blood pressure 139 mm[Hg] Wu VELEZ [facility] Encounters Encounter Date Encounter Type Care Provider Facility Start: 03-03-2025 ambulatory Wu Apolonia VELEZ Facili ty:[facility] Start: 04-13-2024 Non-patient / Non-visit DO Loi Buckner Work Phone: [facility] Work Phone: Start: 04-13-2024 End: 04-13-2024 ambulatory Wu VELEZ Facility::[id number] Start: 04-13-2024 End: 04-13-2024 Departed Referred DO Juma Dudley Work Phone: [facility] Start: 04-04-2024 Non-patient / Non-visit DO Loi april Buckner Work Phone: [facility] Work Phone: Start: 02-29-2024 End: 02-29-2024 ambulatory Wu VELEZ Facility:[facility] Start: 02-29-2024 End: 02-29-2024 Patient encounter procedure Wu VELEZ [facility] Start: 07-17-2023 End: 07-17-2023 ambulatory Juma Dudley Other [facility] [email or web address] Other Start: 07-17-2023 Telephone encounter Juma Buckner [facility] Start: 07-16-2023 End: 07-17-2023 ambulatory RYAN DANIELS Facility:[facility] Start: 07-16-2023 End: 07-16-2023 ambulatory Nan Sarabia MD Work Phone: Hematology/Oncology Comment on above: Malignant neoplasm o f upper-outer quadrant of right breast in female, estrogen receptor positive (HCC) (Primary Dx); Age-related osteoporosis without current pathological fracture Start: 07-16-2023 End: 07-16-2023 Patient encounter procedure Nan Sarabia MD Work Phone: [facility] Start: 06-19-2023 End: 06-19-2023 ambulatory Juma Buckner Other [employer] Other Start: 06-19-2023 Encounter for genera l adult medical examination without abnormal findings Juma Buckner [facility] Start: 06-19-2023 Periodic preventive med est patient 40-64yrs Juma Dudley [facility] Start: 04-27-2023 Telephone encounter Dipti Ulloa RN Hematology/Oncology Comment on above: Orders Start: 10-28-2022 End: 10-28-2022 ambulatory Karina Aldo Other [employer] Other Start: 10-28-2022 Office outpatient ne w 20 minutes Karina Carlson [facility] Start: 08-06-2022 End: 08-06-2022 Patient encounter procedure Wu VELEZ [facility] Start: 06-16-2022 End: 06-16-2022 ambulatory Nan [...] encounter procedure Wu VELEZ [facility] Start: 02-27-2022 End: 02-28-[address] [...] Adult depression scr eening assessment Ryan Daniels CHIEF WRITER[employer] Work Phone: Start: 04-30-2021 Mammography Ryan ledesma CHIEF WRITER[employer] Work Phone: Start: 2021 Extracorporeal shock wave lithotripsy of calculus of kidney Wu VELEZ Start: 11-07-2019 Cystoscopy Wu MATHEWS Appendectomy Wu VELEZ Breast structure (cele dy structure) Wu VELEZ Tonsillectomy Wu VELEZ Plan of Treatment Date Care Activity Detail Author Start: 06-17-2024 DIABETES SCREEN DIABETES SCREEN [facility] Start: 06-17-2024 Diabetes Screening Diabetes Screenin g [facility] Start: 05-04-2024 Mammography Mammogram Screening [facility] Start: 05-08-2023 Influenza vaccination C [facility] Start: 05-02-2023 Mammography MAMMOGRAM [facility] Start: 09-07-2022 DEPRESSION ASSESSMENT DEPRESSION ASS ESSMENT [facility] Start: 06-17-2022 Adult depression screening assessment DEPRESSION SCREENING [facility] Start: 05-08-2022 Influenza vaccination C [facility] Start: 04-30-2022 Mammography MAMMOGRAM [facility] Start: 09-07-2021 DEPRESSION ASSESSMENT DEPRESSION ASS ESSMENT [facility] Start: 2020 RSV Vaccine (1 - 1-d ose 60+ series) RSV Vaccine (1 - 1-dose 60+ series) [facility] Start: 2010 SHINGRIX VACCINE (1 of 2) SHINGRIX VACCINE (1 of 2) [facility] Start: 2005 COLOGUARD (FIT-DNA) COLOGUARD (FIT-D NA) [facility] Start: 2005 Colonoscopy COLONOSCOPY [facility] Start: 2005 COLORECTAL CANCER SCREENING COLORECTAL CANCER SCREENING [facility] Start: [address] COLONOGRAPHY [facility] Start: 2005 FECAL OCCULT BLOOD FECAL OCCULT BLOO D [facility] Start: 2005 Lipid 1996 panel - S gisell or Plasma Lipid Screening [facility] Start: 2005 LIPID SCREEN LIPID SCREEN [facility] Start: 2005 SIGMOIDOSCOPY SIGMOIDOSCOPY [facility] Start: 1990 HPV TESTING HPV TESTING [facility] Start: 1981 PAP TESTING PAP TESTING [facility] Start: 1979 Urine microalbumin profile [facility] Start: 1978 HEPATITIS C SCREENING HEPATITIS C SC REENING [facility] Start: 1978 HIV SCREENING HIV SCREENING [facility] Start: 1966 PNEUMOCOCCAL (1 - PCV) PNEUMOCOCCAL (1 - PCV) [facility] Start: 1965 COVID-19 VACCINE (#1) COVID-19 VACCI NE (#1) [facility] Start: 1960 COVID-19 VACCINE (#1) COVID-19 VACCI NE (#1) [facility] End: 07-16-2023 Diagnostic mammography computer-aided detcj bi [facility] Radiology Routine Malignant neoplasm of upper-outer quadrant of right breast in female, estrogen receptor positive (HCC) 1 Occurrences starting 06/16/2022 until 07/16/2023 [facility] Work Phone: Comment on above: 1 Occurrences starti ng 06/16/2022 until 07/16/2023 End: 08-14-2024 DXA-FOREARM SKELETON DXA-FOREARM SKELETON Radiology Routine Age-related osteoporosis without current pathological fracture Malignant neoplasm of upper-outer quadrant of right breast in female, estrogen receptor positive (HCC) 1 Occurrences starting 07/16/2023 until 08/14/2024 [facility] Work Phone: Comment on above: 1 Occurrences starti ng 07/16/2023 until 08/14/2024 End: 05-26-2024 MEMO SCREENING MEMO SCREENING Radiology Routine Encounter for screening mammogram for malignant neoplasm of breast 1 Occurrences starting 04/27/2023 until 05/26/2024 [facility] Work Phone: Comment on above: 1 Occurrences starti ng 04/27/2023 until 05/26/2024 End: 08-14-2024 MEMO SCREENING W FAISAL MEMO SCREENING W FAISAL Radiology Routine Age-related osteoporosis without current pathological fracture Malignant neoplasm of upper-outer quadrant of right breast in female, estrogen receptor positive (HCC) 1 Occurrences starting 07/16/2023 until 08/14/2024 [facility] Work Phone: Comment on above: 1 Occurrences starti ng 07/16/2023 until 08/14/2024 [facility] Payers Date Payer Category Payer Self-pay [id number] 2016 Unknown [id number] 2012 Unknown MMO MMO [employer] [id number] 2012-Present [phone] [address] [place] [address] O [id number] 1960 Unknown [id number] 1960 Unknown [id number] 1960 Unknown [id number] 1960 Unknown [id number] 1960 Unknown [id number] 1960 Unknown [id number] 1960 Unknown [id number] 1959 Unknown [id number] Unknown [id number] Social History Date Type Detail Facility Start: 02-14-2021 End: 06-17-2023 Tobacco smoking status NHIS Never smoked tobacco (finding) [facility] Start: 1960 Sex Assigned At Female [facility] Start: 04-25-2014 Tobacco use and exposure Smokeless tobacco non-user [facility] Start: 06-17-2021 End: 06-16-2022 Alcohol intake Current non-drinker of alcohol (finding) [facility] Start: 1960 Sex Assigned At Not on file [facility] Start: 06-16-2022 End: 07-16-2023 Sex Assigned At Female [facility] Start: 06-06-2022 End: 06-16-2022 Exposure to SARS-CoV-2 (event) Not sure [facility] Tobacco smoking status Never [facility] Start: 06-16-2022 End: 07-16-2023 History of Social function [facility] Functional Status Date Assessment Result Facility 02-29-2024 Functional Status N/A [facility] 08-06-2022 Functional Status N/A [facility] 03-12-2022 Functional Status N/A [facility] Clinical Notes 09-02-2012 to 02-29-2024 Note [...] include: ?8 oz (237 mL) of milk, kpvlldf-nokwswzkzivq-wclpl milk, and calcium-fortifiedfruit juice. Calcium-fortified means that [...] ?Spinach (cooked), rhubarb, beets, sweet potatoes, and Kitt[place] chard. ?Peanuts. ?Potato chips, central african fries, and baked potatoes with skin on. ?Nuts and nut products. ?Chocolate. If you regularly take a diuretic medicine, make sure to eat at least 1 or 2 servings of fruits or vegetables that are high in potassium each day. These include: ?Avocado. ?Banana. ?Sampson, prune, carrot, or tomato juice. ?Baked potato. [...] magnesium, fish oil, or vitamin B6. Take xrtk-ozu-sijxfrn and prescription medicines only as told by [...] Casseroles. Pizza. Lasagna. Frozen meals. Potato chips. German fries. The items listed above may not [...] provider. Document Revised: 12/04/2022 Document Reviewed: 12/04/2022 [employer] Patient Education 2022 [employer]. Follow Up Care 08/06/2022 16:16:25 With:PATRICIA STRICKLAND, Wu Barksdale, URL Address: [facility] [address], [place] [address]- [phone] When: Unknown Comments:1 yr w/ PATRICIA [facility] 07-17-2023 Evaluation note Encounter Date Diagnosis Assessment Notes Jul, Malignant neoplasm of upper-outer quadrant of right female breast (ICD-10 - C50.411) Lumpectomy 2011, adjuvent chemotherapy, adjuvent radiation therapy, completed 9 years hormone therapy Jul, Estrogen receptor positive status [ER+] (ICD-10 - Z17.0) [facility] Other [id number] Nurse Note* Akua Jorge MA - 07/16/2023 3:02 PM EST Patient would like opinion on right hand pinky finger she has a bump her PCP looked at it said it was probably a cyst but she would still like your opinion, it has not changed at all. Akua Jogre MA documented in this [facility]23 NoteHNO ID: [id number] Author: Nan Sarabia MD Service: ? Author [...] Diagnosis Date Breast cancer (HCC) Right; ER+ WA- PAST SURGICAL HISTORY: PAST SURGICAL HISTORY Procedure [...] 197 RADIOLOGY/OTHER STUDIES: 05/04/2023 Bilateral diagnostic mammogram ([facility]) Stable postsurgical change in the right breast. No mammographic evidence of malignancy.. Routine follow-up in 1 year recommended. 05/02/2022 Bone density DEXA ([facility]) Osteoporosis. Max T score -2.6 left femoral neck, left femur, and right femur. ASSESSMENT/PLAN: 1. 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 No mammographic evidence of malignancy.. Routine follow-up in 1 year recommended. 05/02/2022 Bone density DEXA ([facility]) Osteoporosis. Max T score -2.6 left femoral neck, left femur, and right femur. ASSESSMENT/PLAN: 1. 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 Buckner documented in this encounterSal[facility]10-13-2023 Evaluation note* Encounter Date Diagnosis Assessment Notes [...] to the patient. Recommend referral for excision. 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 Faxed order April 27, 2023 4:23 PM [...] pended for signature. PSS: Please fax to [phone] Thanks. Dipti Ulloa RN documented in this encounterSalem [facility] Center02-21-2023 Evaluation note* Encounter Date Diagnosis Assessment Notes [...] to ER immediately, Conjunctivitis material was printed [facility] Other 11-30-2022 Hospital Discharge instructions Patient Education [...] include: ?Spinach. ?Rhubarb. ?Beets. ?Potato chips and central african fries. ?Nuts. If you regularly take a diuretic medicine, make sure to eat at least 1 2 fruits or vegetables high in potassium each day. These include: ?Avocado. ?Banana. ?Sampson, prune, carrot, or tomato juice. ?Baked potato. [...] Casseroles. Pizza. Lasagna. Frozen meals. Potato chips. German fries. Summary You can reduce your risk [...] 12/19/2011 Document Revised: 12/14/2019 Document Reviewed: 08/04/2017 [employer] Patient Education 2020 [employer] Benefits. Follow Up Care 04/30/2022 15:39:48 With:PATRICIA STRICKLAND, Wu Barksdale, URL Address: [facility] [address] , [place] [address]- When: Unknown [facility] History of Present illness Narrative* [...] Diagnosis Date Breast cancer (HCC) Right; ER+ WA- PAST SURGICAL HISTORY: PAST SURGICAL HISTORY Procedure [...] 197 RADIOLOGY/OTHER STUDIES: 05/02/2022 Bone density DEXA ([facility]) Osteoporosis. Max T score -2.6 left femoral neck, left femur, and right femur. And left femur 05/02/2022 Bilateral diagnostic mammogram ([facility]) Stable postsurgical change in the right breast. No mammographic evidence of malignancy or significant change. Routine follow-up in 1 year recommended. ASSESSMENT/PLAN: 1. 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 Buckner documented in this encounterSalem [facility]07-06-2022 Hospital Discharge instructions Patient Education 03/12/2022 11:25:34 [...] Follow these instructions at home: Medicines Take gtug-aai-jmcvayu and prescription medicines only as told by [...] 08/24/2006 Document Revised: 01/10/2020 Document Reviewed: 01/10/2020 [employer] Patient Education 2019 [employer] Benefits. Follow Up Care 02/13/2022 09:45:15 With:PATRICIA STRICKLAND, Wu Barksdale, URL Address: [facility] [address] , [place] [address]- When:3 months Comments:w/metabolic workup [facility] 05-23-2022 Miscellaneous Notes* Telephone Encounter - Ryan Daniels APRN.CNP - 01/27/2022 4:44 PM EDT The following approved medication requests have been refused. Refused Prescriptions Disp Refills anastrozole (ARIMIDEX) 1 mg tablet [Pharmacy Med Name: ANASTROZOLE TABS 1MG] 90 tablet 3 Sig: TAKE 1 TABLET DAILY OFELIA: No Refused By: RYAN DANIELS Reason for Refusal: A Refill not appropriate Ryan Daniels APRN.COATER OPERATOR INSULATION BOARD documented in this encounterSalem [facility] Center12-27-2012 History of Past illness Narrative* Problem Noted Date Resolved Date Breast CA 09/02/2012 09/16/2018 Overview: Right; ER+ WA-; HER2 - documented as of this encounter (statuses as of 01/28/2022) [facility] History of Past illness Narrative* Problem Noted Date Resolved Date Breast CA 09/02/2012 09/16/2018 Overview: Right; ER+ WA-; HER2 - documented as of this encounter (statuses as of 06/17/2022) [facility] History of Past illness Narrative* Problem Noted Date Diagnosed Date Resolved Date Breast CA 09/02/2012 09/16/2018 Overview: Right; ER+ WA-; HER2 - documented as of this encounter (statuses as of 04/28/2023) [place] [address]-27-2012 History of Past illness Narrative* Problem Noted Date Diagnosed Date Resolved Date Breast CA 09/02/2012 09/16/2018 Overview: Right; ER+ WA-; HER2 - documented as of this encounter (statuses as of 07/17/2023) [facility]ments Appointment Date:06/23/2022 03:00:00 PM Scheduled Provider:Wu VELEZ [facility] Office Visit [facility] Evaluation + Plan note Future Appointments Appointment Date:08/10/2023 02:45:00 PM Scheduled Provider:Wu VELEZ MD [facility] Type:URO Office Visit [facility] Evaluation + Plan note Future Appointments Appointment Date:03/03/2025 08:45:00 AM Scheduled Provider:Wu VELEZ MD Location:[facility] Appointment Type:URO Office Visit [facility] evaluation noteNo assessment information available [facility] Diagnosis Malignant neoplasm of upper-outer quadrant of right breast in female, estrogen receptor positive (HCC)- Primary Age-related osteoporosis without current pathological fracture Senile osteoporosis documented in this encounter [facility]* Diagnosis Encounter for screening mammogram for malignant neoplasm of breast- Primary Other screening mammogram [facility]* Diagnosis Malignant neoplasm of upper-outer quadrant of right breast in female, estrogen receptor positive (HCC)- Primary Age-related osteoporosis without current pathological fracture Senile osteoporosis [facility] Narrative - Reported* Type Description Date Medical History Breast cancer Surgical History appendectomy Surgical History tonsillectomy Surgical History lumpectomy, right breast x2 201 2 Hospitalization History see above surgical histo ry [facility] Other History general Narrative - Reported* Type Description Date Medical History Breast cancer Medical History Nephrolithiasis Medical History Osteopenia of lumbar spine Surgical History appendectomy Surgical History tonsillectomy Surgical History lumpectomy, right breast x2 201 2 Hospitalization History see above surgical histo ry [employer] Other Hospital course Narrative No data available for this section [facility] note No data available for this section [facility] Reason for referral (narrative)* Diagnostic Procedure Only (Routine) - Pending Review Specialty Diagnoses / Procedures Referred By Contac t Referred To Contact [facility] Diagnoses Malignant neoplasm of upper-outer quadrant of right breast in female, estrogen receptor positive (HCC) Procedures MEMO DIAGNOSTIC BILAT DIAGNOSTIC MAMMOGRAPHY COMPUTER-AIDED DETCJ Nan Miranda MD [address] [place] [address] [place] [address] [facility] [place] [address] Referral ID Status Reason Start Date Expiration Date Visits Requested Visits Authorized [id number] Pending Review Auto-Generat ed Referral 07/16/2023 1 1 T [facility] for referral (narrative)* Diagnostic Procedure Only (Routine) - Pending Review Specialty Diagnoses / Procedures Referred By Contac t Referred To Contact [facility] Diagnoses Encounter for screening mammogram for malignant neoplasm of breast Procedures MEMO SCREENING SCREENING MAMMOGRAPHY BI 2-VIEW BREAST INC CAD Nan Sarabia MD [address] [place] [address] [place] [address] [facility] [employer] [address] Referral ID Status Reason Start Date Expiration Date Visits Requested Visits Authorized [id number] Pending Review Auto-Generat ed Referral 04/27/2023 05/26/2024 1 1 T [facility] for referral (narrative)* Diagnostic Procedure Only (Routine) - Pending Review Specialty Diagnoses / Procedures Referred By Contac t Referred To Contact XR IMAGING Diagnoses Age-related osteoporosis without current pathological fracture Malignant neoplasm of upper-outer quadrant of right breast in female, estrogen receptor positive (HCC) Procedures DXA-FOREARM SKELETON DXA BONE DENSITY STUDY 1/>SITES APPENDICLR Nan Morales MD [address] [place] [address] [place] [address] [place] [address] Referral ID Status Reason Start Date Expiration Date Visits Requested Visits Authorized [id number] Pending Review Auto-Generat ed Referral 07/16/2023 08/14/2024 [...] BI 2-VIEW BREAST INC Nan Chau MD [address] [place] [address] [place] [address] [facility] [address] [place] [address] Referral ID Status Reason Start Date Expiration Date Visits Requested Visits Authorized [id number] Pending Review Auto-Generat ed Referral 07/16/2023 08/14/2024 1 1 [facility] Chief Complaint and Reason for Visit Chief [...] or prosecute any alcohol or drug abuse patient.[facility] CenterIn the event this information is protected by the Federal Confidentiality of Alcohol and Drug Abuse Patient Records regulations: The Federal rules restrict any use of the information to criminally investigate or prosecute any alcohol or drug abuse patient.[facility] CenterIn the event this information is protected by the Federal Confidentiality of Alcohol and Drug Abuse Patient Records regulations: The Federal rules restrict any use of the information to criminally investigate or prosecute any alcohol or drug abuse patient.[facility] CenterIn the event this information is protected by the Federal Confidentiality of Alcohol and Drug Abuse Patient Records regulations: The Federal rules restrict any use of the information to criminally investigate or prosecute any alcohol or drug abuse patient.[facility] Reason for Visit (unrecogniz ed section and content) Reason Comments Refill Request Reason Comments Breast Cancer Reason Comments Orders Reason Comments Breast Cancer 1 year follow up Care Teams (unrecognized sec tion and content) 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 Relationship Specialty Start Date End Date Samm Palmer PCP - General Family Practice 01/15/12 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 Relationship Specialty Start Date End Date Juma Buckner DO [address] [place] [address] PCP - General Internal Medicine 06/16/22 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 Relationship Specialty Start Date End Date Juma Buckner DO [address] [place] [address] PCP - General Internal Medicine 06/16/22 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 Relationship Specialty Start Date End Date Juma Buckner DO [address] [place] [address] PCP - General Internal Medicine 06/16/22 Team [...] DATE CREATED AUTHOR AUTHOR'S ORGANIZ ATION 07/18/2023 [facility] DATE CREATED AUTHOR AUTHOR'S ORGANIZ ATION 03/05/2024 [facility] DATE CREATED AUTHOR AUTHOR'S ORGANIZ ATION 04/20/2024 [facility] FOR RECORDS PERTAINING TO PATIENTS WHO [...] BE BASED ON THE PRIMARY CLINICAL RECORDS. [facility]. provides no warranty or guarantee of the accuracy or completeness of information in this document.
== END 2024-05-16 12:31 | disposition home or self-care (01) ==
LOC: PST 12:30
PROVIDERS: PCP Internal Medicine; Visit Provider Urology
DX: Z01.818 Encounter for other preprocedural examination (principal); N20.0 Calculus of kidney; R31.9 Hematuria, unspecified; Z85.3 Personal history of malignant neoplasm of breast

== ENCOUNTER 2024-05-26 10:00 | Day surgery (SDC) | payer OTHER, SELFPAY ==
[2024-05-26] VITALS (11 sets, daily range): BP systolic 125–158; BP diastolic 67–86; PULSE 74–90; TEMP 36.1–36.9; O2SAT 96–100; BMI 21.9
--- NOTE | 2024-05-26 | FL_ITS ---
[address] [address] Patient Name: ALBERT ABREU MRN: [id number] date: 1960 Sex: F Assigned Patient Location: SURGOUT Current Patient Location: ED.MAIN Accession/Order Number: [id number] Exam Date: 05/26/2024 12:10 Report Date: 06/01/2024 10:13 At the request of: ROLAND GOMEZ Procedure: FL fluoroscopy <1hr NON-READ EXAM: FL fluoroscopy <1hr NON-READ HISTORY: TECHNIQUE: FINDINGS: Please see Operative Report. Electronically authenticated by: RADIOLOGIST NO Date: 06/01/2024 10:13
--- OUTSIDE RECORDS SUMMARY | 2024-05-26 10:22 | XMS_ITS | CCD ---
Author Organization [facility] Care Team Providers Care Splash Line Operator Name Role Phone Adrian Oneal Jr Attending Provider Juma Buckner Primary Care Provider Samm Palmer Primary Care Provider JUMA BUCKNER [...] DO Primary Care Provider Juma Buckner Unavailable Roland VELEZ Attending Unavailable Roland VELEZ Attending Unavailable Roland VELEZ Attending Unavailable DO Juma Buckner Primary Care Provider DO Juma Buckner Attending Provider Juma Buckner Attending Unavailable Juma Buckner Primary Care Unavailable Juma Buckner Admitting Unavailable Juma Buckner DO Primary Care Provider JUMA BUCKNER Primary Care Unavailable LIBORIO SARABIA Attending Unavailable RYAN DANIELS Referring Unavailable JUMA BUCKNER Primary Care Unavailable RYAN DANIELS Referring Unavailable Allergies Allergy Classification Reported Allergen(s) Allergy Type Date of Onset Reaction(s) Facility Cephalosporins (antibiotic) (1 source) Cephalexin Drug Allergy 1 [facility] (12 sources) Cephalexin; Translations: [cephalexin] Drug Allergy 7 Unknown, Weal (disorder) [facility] (5 sources) Cephalexin; Translations: [Keflex] Drug Allergy [facility] Repository (1 source) Cephalexin Drug Allergy 3 [facility] Repository Medications Current Medications Medication Drug Class(es) Dates Sig (Normalized) Sig (Original) anastrozole 1 mg oral tablet (8 sources) Aromatase Inhibitor Start: 11-07-2019 anastrozole (ARIMIDEX) 1 mg tablet TAKE 1 TABLET DAILY 90 tablet 3 01/30/2021 Active Comment on above: TAKE 1 TABLET DAILY Calcium (6 sources) Phosphate Binder, Calcium Start: 10-27-2019 Calcium Calcium, Oral, Daily Start Date: 10/27/19 Status: Ordered Calcium Active calcium carbonate 1250 mg / cholecalciferol 0.01 mg oral tablet (2 sources) Vitamin D Start: 02-14-2021 Calcium Carbon ate-Vitamin D3 (Calcium 500 + D) 500 mg(1,250mg) -400 unit Tablet Active 2 TAB PO Daily at bedtime February 14, 2021 10:30am Calcium Carbonate / vitamin D3 (6 sources) CALCIUM CARBONAT E/VITAMIN D3 (CALCIUM + D ORAL) Take by mouth. Active CALCIUM CARBONAT E/VITAMIN D3 (CALCIUM + D ORAL) Take by mouth. 0 Active Comment on above: Take by mouth. ciprofloxacin 500 mg oral tablet (3 sources) Quinolone Antimicrobial Start: 02-28-20 take 1 tablet by mouth every twelve hours Ciprofloxacin Hcl (Cipro) 500 mg tablet Active 500 MG PO Q12H February 27, 2021 12:00am Start: 11-07-2019 End: 02-14-2021 take 500 mg by mouth every twelve hours Ciprofloxacin Hcl Discontinued 500 MG PO Q12H November 07, 2019 6:27pm February 14, 2021 10:32am Dexamethasone / Neomycin / Polymyxin B (3 sources) Aminoglycoside Antibacterial, Polymyxin-class Antibacterial, Corticosteroid Start: 10-28-2022 Maxitrol 3.5-52878-8.1 apply directly under left eyelashes Ophthalmic Three [...] Ketorolac Active 10 MG PO Q6H 20 February 27, 2021 12:00am Start: 11-07-2019 End: 02-14-2021 take 10 mg by mouth every six hours Ketorolac Discontinued 10 MG PO Q6H 10 November 07, 2019 6:27pm February 14, 2021 10:31am potassium bicarbonate 25 meq effervescent oral tablet (6 sources) Start: 03-30-2023 KLOR-CON/EF 25 mEq disintegrating tablet 03/30/2023 Active potassium citrate 10 meq extended release oral tablet (1 source) Start: 02-29-2024 End: 02-23-2025 potassium CITRATE 10 mEq ER Tab 20 mEq, 2 tab(s), Oral, BID for 30 day(s), 120 tab(s), Refill(s) [address] [place] [address] [id number], 165, cm, 02/29/24 11:29:00 EDT, Height/Length Dosing, 58.5, kg, 02/29/24 11:29:00 EDT, Weight Dosing Start Date: 02/29/24 Stop Date: 02/23/25 Status: Ordered Vitamin D (2 sources) Start: 08-06-2022 Vitamin D Inte rnational_Unit, Oral, qWeek Start Date: 08/06/22 Status: Ordered Completed/Discontinued Medications Medication Drug Class(es) Dates Sig (Normalized) Sig (Original) cefuroxime 500 mg oral tablet (3 sources) [...] BID, # 180 tab(s), Refills(s) 3, Pharmacy: [facility] #[id number], 165, cm, 08/06/22 15:18:00 EST, Height/Length Dosing, 56, kg, 08/06/22 15:18:00 EST, Weight Dosing Start Date: 08/06/22 Status: Ordered nitrofurantoin, macrocrystals 25 mg / nitrofurantoin, monohydrate 75 mg oral capsule (2 sources) Nitrofuran Antibacterial Start: 11-07-2019 End: 02-14-2021 take 100 mg by mouth twice daily Nitrofurantoin Monohyd/M-Cryst Discontinued 100 MG PO Twice daily November 07, 2019 4:08pm February 14, 2021 10:31am predniSONE (3 sources) prednisone Not-Taking tamsulosin hydrochloride [...] kidney] Onset: 03-12-2022 Episodic Cancer of breast (15 sources) Malignant neoplasm of upper-outer quadrant of female breast; Translations: [Malignant neoplasm of upper-outer quadrant of right female breast] Onset: 09-02-2012 Resolved: 09-16-2018 09-16-2018 Chronic Diseases of white blood [...] Episodic Other bone disease and musculoskeletal deformities (6 sources) Osteopenia; Translations: [Other specified disorders of bone density and structure, unspecified site] Onset: 09-18-2018 09-18-2018 Episodic Results Test Name Value Interpretation Reference Range [facility]MovieSet[facility] LOISALBERT Ericka ([id number]) 1960 F Date Time Provider Department 05/20/24 AUDRA ANDREWS During your visit today, we recorded the following information about you: Audra Andrews RN 05/20/2024 10:30 AM Signed [facility] called for DX code to be added to screening mammogram order. Z12.31 added and faxed to requested # [phone]. Pt is scheduled next week. Audra Andrews RN Allergies As of Date: 05/20/2024 Noted Allergy Reaction KEFLEX (CEPHALEXIN) 01/14/2017 16 - Unknown Date Reviewed: 07/17/2023 Reviewed by: Ryan Daniels APRN.PRESCHOOL ASSOCIATE TEACHER - Fully Assessed Reason for Visit: DX code for screening mammogram needed [Other] Prescriptions as of 05/20/2024 - KLOR-CON/EF 25 mEq disintegrating tablet - anastrozole (ARIMIDEX) 1 mg tablet TAKE 1 TABLET DAILY - CALCIUM CARBONATE/VITAMIN D3 (CALCIUM + D ORAL) Take by mouth. Problem List As Of Date 05/20/2024 Noted Resolved Breast CA (HCC) [C50.919] 09/02/2012 09/16/2018 Malignant neoplasm of upper-outer quadrant of r*09/16/2018 Osteopenia [M85.80] 09/18/2018 Encounter Status:Closed by AUDRA ANDREWS on 05/20/24 Normal [facility] Basophils Auto (Bld) [#/Vol] on 04-13-2024 Basophils (Bld) [#/Vol] 0.0 10 3/uL 0.0-0.1 [facility] Basophils/100 WBC Auto (Bld) on 04-13-2024 Basophils/100 WBC (Bld) 0.7 % 0.2-2.0 [facility] Eosinophils/100 WBC Auto (Bl d)on 04-13-2024 Eosinophils/100 WBC (Bld) 1.2 % 0.9-7.0 [facility] Erythrocyte distribution wid th Auto (RBC) [Ratio]on 04-13-2024 Erythrocyte distribution width (RBC) [Ratio] 12.1 % 11.0-15.0 [facility] Hematocrit Auto (Bld) [Volum e fraction]on 04-13-2024 Hematocrit (Bld) [Volume fraction] 41.0 % 36.0-48.0 [facility] Hemoglobin [Mass/volume] in Bloodon 04-13-2024 Hemoglobin (Bld) [Mass/Vol] 13.6 g/dL 12.0-16.0 [facility] Chip 04-13-2024 L Specimen: [id number] Received: 04/18/24 Status: GEAM Oneill Num: [id number] Spec Type: Impression Subm Dr: Juma Buckner DO Tissues: PATHPER Procedures: PATHREVIEW Age/ Patient Sex Location Account Attending Physician Albert Roberts 64/F LABELL [id number] Juma Buckner DO SPEC NUM: [id number] RECD: 04/18/24 STATUS: GEMA ONEILL NUM: [id number] GILA: 04/13/[address]: Juma Buckner DO ENTERED: 04/18/[address] [facility] [address]: SPEC TYPE: Impression DEPT: MALENA Alvarez ENTERED BY: [id number] RECV BY: [id number] ORDERED: PATHREVIEW ORDERED: PATHREVIEW Pathologist Review Abnormal [...] antineoplastics. Continuous clinical correlations are suggested CPT: 23856 -------- -------- Specimen: [id number] Received: 04/18/24 Status: GEMA Quintanaariel Num: [id number] Spec Type: Impression Subm Dr: Juma Buckner DO Tissues: PATHPER Procedures: PATHREVIEW -------- Patient: Albert Roberts [id number] (Continued) -------- Signed (signature on file) Yue Braga MD 04/18/242006 Normal [facility] - Hematology and Cell countson 04-13-2024 ESR (Bld) [Velocity] 6 mm/h <=30 [facility] Immature granulocytes/100 WBC (Bld) 0.2 % 0.0-0.5 [facility] Leukocytes [#/volume] correc noe for nucleated erythrocytes in Blood by Automated counon 04-13-2024 WBC corrected for nucl RBC Auto (Bld) [#/Vol] 5.7 10 3/uL 4.0-11.0 [facility] Lymphocytes Auto (Bld) [#/Vo l]on 04-13-2024 Lymphocytes (Bld) [#/Vol] 1.1 10 3/uL Low 1.2-3.8 [facility] Lymphocytes/100 WBC Auto (Bl d)on 04-13-2024 Lymphocytes/100 WBC (Bld) 18.8 % Low 20.5-60.0 [facility] MCH Auto (RBC) [Entitic mass ]on 04-13-2024 MCH (RBC) [Entitic mass] 31.3 pg 26.7-34.0 [facility] MCHC Auto (RBC) [Mass/Vol]on 04-13-2024 MCHC (RBC) [Mass/Vol] 33.2 g/dL 29.9-35.2 [facility] MCV Auto (RBC) [Entitic vol] on 04-13-2024 MCV (RBC) [Entitic vol] 94.5 fL 81.0-99.0 [facility] Monocytes Auto (Bld) [#/Vol] on 04-13-2024 Monocytes (Bld) [#/Vol] 0.3 10 3/uL 0.3-0.8 [facility] Monocytes/100 WBC Auto (Bld) on 04-13-2024 Monocytes/100 WBC (Bld) 5.4 % 1.7-12.0 [facility] Neutrophils Auto (Bld) [#/Vo l]on 04-13-2024 Neutrophils (Bld) [#/Vol] 4.2 10 3/uL 1.4-6.5 [facility] Neutrophils/100 WBC Auto (Bl d)on 04-13-2024 Neutrophils/100 WBC (Bld) 73.7 % 43.0-75.0 [facility] No Panel Informationon 04-13 C-Reactive Protein, Quantitative <0.50 mg/dL <=0.50 [facility] Eosinophils # (Auto) 0.1 10 3/uL 0.0-0.7 [facility] Immature Granulocyte # (Auto) 0.01 10 3/uL 0.00-0.03 [facility] Platelet mean volume Auto (B ld) [Entitic vol]on 04-13-2024 Platelet mean volume (Bld) [Entitic vol] 11.2 fL 9.5-13.5 [facility] Platelets Auto (Bld) [#/Vol] on 04-13-2024 Platelets (Bld) [#/Vol] 199 10 3/uL 150-450 [facility] RBC Auto (Bld) [#/Vol]on RBC (Bld) [#/Vol] 4.34 10 6/uL 4.20-5.[address] [facility] Serum or plasma free cefurox haylee measurement (mass/volume)on 04-13-2024 Cefuroxime free [Mass/Vol] Negative Negative [facility] Comment on above: Performed at: [facility] [place] [id number] Director: Dima Sosa PhD, Phone: [phone] Activated partial thrombopla stin time (aPTT) in platelet poor plasma by coagulation aon 04-04-2024 aPTT Coag (PPP) [Time] 29.7 s 22.3-36.2 [facility] Basophils Auto (Bld) [#/Vol] on 04-04-2024 Basophils (Bld) [#/Vol] 0.0 10 3/uL 0.0-0.1 [facility] Basophils/100 WBC Auto (Bld) on 04-04-2024 Basophils/100 WBC (Bld) 1.5 % 0.2-2.0 [facility] Eosinophils/100 WBC Auto (Bl d)on 04-04-2024 Eosinophils/100 WBC (Bld) 3.0 % 0.9-7.0 [facility] Erythrocyte distribution wid th Auto (RBC) [Ratio]on 04-04-2024 Erythrocyte distribution width (RBC) [Ratio] 12.0 % 11.0-15.0 [facility] Estimated glomerular filtrat ion rate (GFR) non- Americanon 04-04-2024 GFR/1.73 sq M.predicted among non-blacks MDRD (S/P/Bld) [Vol rate/Area] 58 mL/min/{1.73_m2} Low >=60 [facility] Hematocrit Auto (Bld) [Volum e fraction]on 04-04-2024 Hematocrit (Bld) [Volume fraction] 42.8 % 36.0-48.0 [facility] Hemoglobin [Mass/volume] in Bloodon 04-04-2024 Hemoglobin (Bld) [Mass/Vol] 14.2 g/dL 12.0-16.0 [facility] INR in Platelet poor plasma by Coagulation assayon 04-04-2024 INR Coag (PPP) [Relative time] 1.13 {INR} [facility] Comment on above: DESIRED INR:2.0-3.0 CONDITIONS NOT LISTED BELOW2.5-3.5 FOR PROSTHETIC HEART VALVE REPLACEMENT2.5-3.5 RECURRENT THROMBOSIS Laboratory - Chemistry and C hemistry - challengeon 04-04-2024 Calcium [Mass/Vol] 8.9 mg/dL 8.5-10.1 [facility] Chloride [Moles/Vol] 104 mmol/L 98-107 [facility] CO2 [Moles/Vol] 27.6 mmol/L 21.0-32.0 [facility] Creatinine [Mass/Vol] 0.97 mg/dL 0.55-1.02 [facility] GFR/1.73 sq M.predicted MDRD (S/P/Bld) [Vol rate/Area] mL/min/{1.73_m2} >=60 [facility] Glucose [Mass/Vol] 92 mg/dL 74-106 [facility] Potassium [Moles/Vol] 4.0 mmol/L 3.5-5.1 [facility] Sodium [Moles/Vol] 140 mmol/L 136-145 [facility] Urea nitrogen [Mass/Vol] 25.0 mg/dL High 7.0-18.0 [facility] Urea nitrogen/Creatinine [Mass ratio] 25.8 mg/mg [facility] Laboratory - Hematology and Cell countson 04-04-2024 Immature granulocytes/100 WBC (Bld) 0.4 % 0.0-0.5 [facility] Leukocytes [#/volume] correc noe for nucleated erythrocytes in Blood by Automated counon 04-04-2024 WBC corrected for nucl RBC Auto (Bld) [#/Vol] 2.7 10 3/uL Low 4.0-11.0 [facility] Lymphocytes Auto (Bld) [#/Vo l]on 04-04-2024 Lymphocytes (Bld) [#/Vol] 0.9 10 3/uL Low 1.2-3.8 [facility] Lymphocytes/100 WBC Auto (Bl d)on 04-04-2024 Lymphocytes/100 WBC (Bld) 33.3 % 20.5-60.0 [facility] MCH Auto (RBC) [Entitic mass ]on 04-04-2024 MCH (RBC) [Entitic mass] 31.0 pg 26.7-34.0 [facility] MCHC Auto (RBC) [Mass/Vol]on 04-04-2024 MCHC (RBC) [Mass/Vol] 33.2 g/dL 29.9-35.2 [facility] MCV Auto (RBC) [Entitic vol] on 04-04-2024 MCV (RBC) [Entitic vol] 93.4 fL 81.0-99.0 [facility] Monocytes Auto (Bld) [#/Vol] on 04-04-2024 Monocytes (Bld) [#/Vol] 0.4 10 3/uL 0.3-0.8 [facility] Monocytes/100 WBC Auto (Bld) on 04-04-2024 Monocytes/100 WBC (Bld) 15.0 % High 1.7-12.0 [facility] Neutrophils Auto (Bld) [#/Vo l]on 04-04-2024 Neutrophils (Bld) [#/Vol] 1.3 10 3/uL Low 1.4-6.5 [facility] Neutrophils/100 WBC Auto (Bl d)on 04-04-2024 Neutrophils/100 WBC (Bld) 46.8 % 43.0-75.0 [facility] No Panel Informationon 04-04 Eosinophils # (Auto) 0.1 10 3/uL 0.0-0.7 [facility] Immature Granulocyte # (Auto) 0.01 10 3/uL 0.00-0.03 [facility] Platelet mean volume Auto (B ld) [Entitic vol]on 04-04-2024 Platelet mean volume (Bld) [Entitic vol] 10.9 fL 9.5-13.5 [facility] Platelets Auto (Bld) [#/Vol] on 04-04-2024 Platelets (Bld) [#/Vol] 198 10 3/uL 150-450 [facility] Prothrombin time (PT)on 03-08 PT Coag (PPP) [Time] 11.8 s High 9.0-11.6 [facility] RBC Auto (Bld) [#/Vol]on RBC (Bld) [#/Vol] 4.58 10 6/uL 4.20-5.[address] [facility] Serum or plasma anion gap de terminationon 04-04-2024 Anion gap [Moles/Vol] 12.4 mmol/L [facility] Ambulatory Visit Summaryon 0 02-29-2024 Ambulatory Visit Summary ALBERT ROBERTS :1960 Visit Date:02/29/2024 Ambulatory Visit Instructions Your Diagnosis Kidney stones Asymptomatic microscopic hematuria Tests Performed XR Abdomen 1 View -- Results Pending -- Please visit your patient portal for your results or contact your primary care physician. Your Care Team Attending Physician - Roland VELEZ MD Primary Care Physician - JUMA [...] [facility] [address], [place] [address]- [phone] Medications What How Much When Instructions New potassium citrate (potassium CITRATE 10 mEq ER Tab) 2 Tablets By Mouth 2 times a day Duration: 30 Days Refills: 11 Pickup at [facility] #[id number] Unchanged ergocalciferol (Vitamin D) By Mouth Every week Contact prescribing physician if questions or concerns Unchanged Non-Formulary Medication (Calcium) By Mouth Every day Contact prescribing physician if questions or concerns Pharmacy Information [facility] #[id number]: [address] [place], [place] [phone] What How Much When Comments Stop Taking [...] ? Eat (more content not included)... Normal [facility] Patient Educationon 02-29-20 Patient Education Nephrology Dietary [...] Spinach (cooked), rhubarb, beets, sweet potatoes, and Wallisian chard. ? Peanuts. ? Potato chips, puerto rican fries, and baked potatoes with skin on. ? Nuts and nut products. ? Chocolate. ? If you regularly take a diuretic medicine, make sure to eat at least 1 or 2 servings of fruits or vegetables that are high in potassium each day. These include: ? Avocado. ? Banana. ? [place], prune, carrot, or tomato juice. ? Baked [...] fish oil, or vitamin B6. ? Take emmo-fez-dwfcpwi and prescription medicines only as told by your health care provider. These include supplements. What foods sh (more content not included)... Normal [facility] Urology Office/Clinic Noteon 02-29-2024 Urology Office/Clinic Note Chief Complaint kidney stones and asymptomatic microhematuria HPI Staff 1 yr with [facility] @ [facility] 02/24/24 due to kidney stones. Previous DX: asymptomatic microscopic hematuria, dysuria, gross hematuria, hydronephrosis with urinary obstruction due to ureteral calculus, kidney stones, lower abdominal pain, microscopic hematuria, ureteral stone. S/P ESWL 04/11/21. Started Effer-K 25mEq BID at prior OV. Electrolyte panel was not done. Could not find any pertaining labs from PCP ([facility], [facility], [facility] either. Dysuria: no Incomplete [...] only been taking this once per day. Egan bloated when she took bid. Advised pt [...] Follow-up With When Contact Information PATRICIA STRICKLAND, Roland Barksdale, URL [facility] [address], [place] [address]- [phone] Additional Instructions: 1 yr w/ [facility] Patient Education Dietary Guidelines to Help Prevent Kidney Stones Nella Guillory, personally scribed for Dr. Velez on 02/29/2024 11:56:08. . Documentation recorded by the scribeNella, accurately reflects the services(s) I performed and [...] Tobacco Use:. Household (more content not included)... [facility] Comment on above: Result Comment: Elec tronically Signed By: Roland VELEZ MD\.br\Date and Time Signed: 02/29/24 12:00 EDT\.br\Electronically Co-Signed By: Nella Carrillo\.br\Date and Time Co-Signed: 02/29/24 11:56 EDT RAD - MISCon 02-25-2024 RAD - MISC [id number] .[id number] [facility] CNOVSPon 07-16-2023 CNOVSP Visit (SP) Office ([place]) ALBERT ROBERTS ([id number]) 1960 F Date Time Provider Department 07/16/23 3:15 PM LIBORIO SARABIA During your visit today, we recorded the following information about you: Temperature Pulse Respiration Blood pressure 97.5 degrees 80/minute 16/minute 159/70 Weight Height 58.2 kg 1.651 m Liborio Sarabia MD 07/17/2023 5:54 AM Signed PATIENT NAME: Albert Roberts DATE: 07/16/2023 PRIMARY CARE PHYSICIAN: Dr. [...] Diagnosis Date Breast cancer (HCC) Right; ER+ TX- PAST SURGICAL HISTORY: PAST SURGICAL HISTORY Procedure [...] 197 RADIOLOGY/OTHER STUDIES: 05/04/2023 Bilateral diagnostic mammogram ([facility]) Stable postsurgical change in the right breast. No mammographic evidence of malignancy.. Routine follow-up in 1 year recommended. 05/02/2022 Bone density DEXA ([facility]) Osteoporosis. Max T score -2.6 left femoral neck, left femur, and right femur. ASSESSMENT/PLAN: 1. 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 Normal [facility] CNPNon 07-16-2023 CNPN Telephone (NCCAP) ALBERT ROBERTS ([id number]) 1960 F Date Time Provider Department 07/16/23 LIBORIO SARABIA NCCAMY During your visit today, we recorded the following information about you: Abiodun James 07/16/2023 3:[address] new DEXA order. I believe the DXA Forearm is incorrect? Thanks! Ryan Chirinos APRN.HEIDI 07/17/2023 11:40 AM Signed New order placed. Ryan Daniels APRN.HEIDI Allergies As of Date: 07/16/2023 Noted Allergy Reaction KEFLEX (CEPHALEXIN) 01/14/2017 16 - Unknown Date Reviewed: 07/16/2023 Reviewed by: Akua Jorge MA - Fully Assessed Reason for Visit: Orders [681] Primary Visit Diagnosis:Osteopenia of multiple sites [M85.89] Order(s):DXA-AXIAL SKELETON [[id number]] Order #: [id number] FUTURE Prescriptions as of 07/17/2023 - KLOR-CON/EF 25 mEq disintegrating tablet - anastrozole (ARIMIDEX) 1 mg tablet TAKE 1 TABLET DAILY - CALCIUM CARBONATE/VITAMIN D3 (CALCIUM + D ORAL) Take by mouth. Problem List As Of Date 07/16/2023 Noted Resolved Breast CA (HCC) [C50.919] 09/02/2012 09/16/2018 Malignant neoplasm of upper-outer quadrant of r*09/16/2018 Osteopenia [M85.80] 09/18/2018 Encounter Status:Closed by ABIODUN JAMES on 07/17/23 [facility] OXALATE 24HR URINEon 022 Oxalates, Urine 14 mg/L Normal Undefined [facility] Comment on above: Performed By: #### U NICHOLE 24 #### [facility] [address] [address] [address] Lizzette Braga Oxalates, Urine 24hr 28 mg/24 hr Normal 4-31 [facility] Comment on above: Performed By: #### U NICHOLE 24 #### [facility] [address] [address] [address] Lizzette Braga CITRATE URINE 24HRon 022 Citric Acid, U, 24hr 265 mg/24 hr Critically low 320-1240 [facility] Comment on above: Result Comment: This test was developed and its performance characteristics determined by [employer]. It has not been cleared or approved by the Food and Drug Administration. Performed By: #### U NICHOLE 24 #### [facility] [address] [address] [address] Lizzette Braga Citric Acid, Urine 131 mg/L Normal Undefined [facility] Comment on above: Performed By: #### U NICHOLE 24 #### [facility] [address] [place] [address] Dr. Lizzette Braga MAGNESIUM 24HR URINEon 04-03 Magnesium 24hr Urine 68.9 mg/24 hr Normal 12.0-293.0 T [facility] Comment on above: Performed By: #### U NICHOLE 24 #### [facility] [address] [place] [address] Dr. Lizzette Braga Magnesium UR 3.4 mg/dL Normal Not Estab. [facility] Comment on above: Performed By: #### U NICHOLE 24 #### [facility] [address] [place] [address] Dr. Lizzette Braga PHOSPHORUS 24HR URINEon 03-08 Phosphorus, Urine 21.6 mg/dL Normal Not Estab. [facility] Comment on above: Performed By: #### U NICHOLE 24 #### [facility] [address] [place] [address] Dr. Lizzette Braga Phosphorus, Urine 24hr 437 mg/24 hr Normal 261-1078 [facility] Comment on above: Performed By: #### U NICHOLE 24 #### [facility] [address] [place] [address] Dr. Lizzette Braga URIC ACID 24 HR URINEon 03-08 Uric Acid, Urine 19.0 mg/dL Normal Not Estab. [facility] Comment on above: Performed By: #### U NICHOLE 24 #### [facility] [address] [place] [address] Dr. Lizzette Braga Uric Acid, Urine 24hr 384.8 mg/24 hr Normal 142.3-713. 2 [facility] Comment on above: Performed By: #### U NICHOLE 24 #### [facility] [address] [place] [address] Dr. Lizzette Braga CALCIUM 24 HR URINEon 2021 CALC, 24 HR UR 141.8 mg/24 hr Normal 100.0-300.0 [facility] Comment on above: Performed By: #### U NICHOLE 24 #### [facility] [address] [place] [address] Dr. Lizzette Braga UR CALCIUM 7.0 mg/dL Normal 5.1-21.0 [facility] Comment on above: Performed By: #### U NICHOLE 24 #### [facility] [address] [place] [address] Dr. Lizzette Braga CREA 24 HR URINEon 2 CREA, 24 HR UR 896.06 mg/24 hr Normal 800.00-1,8 00.0 0 [facility] Comment on above: Performed By: #### U NICHOLE 24 #### [facility] [address] [place] [address] Dr. Lizzette Braga URINE CREAT 44.25 mg/dL Normal 20.00-300.00 [facility] Comment on above: Performed By: #### U NICHOLE 24 #### [facility] [address] [place] [address] Dr. Lizzette Braga PTH INTACTon 04-01-2022 PTH, Intact 36 pg/mL Normal 15-65 [facility] Comment on above: Performed By: #### U NICHOLE 24 #### [facility] [address] [place] [address] Dr. Lizzette Braga SODIUM 24 HR URINEon 022 NA, 24 HR UR 99 mmol/24 hr Normal 40-[address] [facility] Comment on above: Performed By: #### U NICHOLE 24 #### [facility] [address] [place] [address] Dr. Lizzette Braga Sodium (U) [Moles/Vol] 49 mmol/L Normal 30-90 [facility] Comment on above: Performed By: #### U NICHOLE 24 #### [facility] [address] [place] [address] Dr. Lizzette Braga UR TOT VOL 2025 ml/24 HR Normal [facility] Comment on above: Performed By: #### U NICHOLE 24 #### [facility] [address] [place] [address] Dr. Lizzette Braga BUNon 03-31-2022 Urea nitrogen [Mass/Vol] 18.0 mg/dL Normal 7.0-18.0 [facility] Comment on above: Performed By: #### C O2, CA, URIC, NA, K, CREA, BUN, CL #### [facility] [address] [place] [address] Dr. Lizzette Braga CALCIUMon 03-31-2022 Calcium [Mass/Vol] 9.0 mg/dL Normal 8.5-10.1 [facility] Comment on above: Performed By: #### U NICHOLE 24 #### [facility] [address] [place] [address] Dr. Lizzette Braga CHLORIDEon 03-31-2022 Chloride [Moles/Vol] 105 mmol/L Normal 98-107 [facility] Comment on above: Performed By: #### C O2, CA, URIC, NA, K, CREA, BUN, CL #### [facility] [address] [place] [address] Dr. Lizzette Braga CO2on 03-31-2022 CO2 [Moles/Vol] 27.7 mmol/L Normal 21.0-32.0 [facility] Comment on above: Performed By: #### C O2, CA, URIC, NA, K, CREA, BUN, CL #### [facility] [address] [place] [address] Dr. Lizzette Braga CREATININEon 03-31-2022 Creatinine [Mass/Vol] 0.96 mg/dL Normal 0.55-1.02 [facility] Comment on above: Performed By: #### C O2, CA, URIC, NA, K, CREA, BUN, CL #### [facility] [address] [address] [address] Lizzette Braga EGFR-AF RWANDAN >60 Normal >=60 [facility] Comment on above: Performed By: #### C O2, CA, URIC, NA, K, CREA, BUN, CL #### [facility] [address] [place] [address] Dr. Lizzette Braga EGFR-NON AF RWANDAN 59 mL/min/1.73m2 Critically low >=60 [facility] Comment on above: Performed By: #### C O2, CA, URIC, NA, K, CREA, BUN, CL #### [facility] [address] [place] [address] Dr. Lizzette Braga NAon 03-31-2022 Sodium [Moles/Vol] 141 mmol/L Normal 136-145 [facility] Comment on above: Performed By: #### C O2, CA, URIC, NA, K, CREA, BUN, CL #### [facility] [address] [place] [address] Dr. Lizzette Braga POTASSIUMon 03-31-2022 Potassium [Moles/Vol] 4.1 mmol/L Normal 3.5-5.1 [facility] Comment on above: Performed By: #### C O2, CA, URIC, NA, K, CREA, BUN, CL #### [facility] [address] [place] [address] Dr. Lizzette Braga URIC ACID SERUMon 03-31-2022 Urate [Mass/Vol] 3.0 mg/dL Normal 2.6-6.0 [facility] Comment on above: Performed By: #### C O2, CA, URIC, NA, K, CREA, BUN, CL #### [facility] [address] [place] [address] Dr. Lizzette Braga XR KUB 1 VIEWon [...] ISRRAEL COOPER Date: 2022-02-28 06:17 Normal [facility] CALCULI, URINARYon 1 2,8 Dihydroxyadenine Normal [facility] Comment on above: Performed By: #### U NICHOLE 24 #### [facility] [address] [place] [address] Dr. Lizzette Braga Ammonium Acid Urate Normal [facility] Comment on above: Performed By: #### U NICHOLE 24 #### [facility] [address] [place] [address] Dr. Lizzette Braga Bilirubin Ql (U) Normal [facility] Comment on above: Performed By: #### U NICHOLE 24 #### [facility] [address] [address] [address] Lizzette Braga Ca Oxalate Dihydrate 20 % Normal [facility] Comment on above: Performed By: #### U NICHOLE 24 #### [facility] [address] [address] [address] Lizzette Braga CaHPO4 (Brushite) Normal [facility] Comment on above: Performed By: #### U NICHOLE 24 #### [facility] [address] [place] [address] Dr. Lizzette Braga Calcium Bilirubinate Normal [facility] Comment on above: Performed By: #### U NICHOLE 24 #### [facility] [address] [address] [address] Lizzette Braga Calcium Carbonate Normal [facility] Comment on above: Performed By: #### U NICHLOE 24 #### [facility] [address] [place] [address] Dr. Lizzette Braga Calcium Oxalate Monohydrate 80 % [facility] Comment on above: Performed By: #### U NICHOLE 24 #### [facility] [address] [address] [address] Lizzette Braga Calcium Palmitate Normal [facility] Comment on above: Performed By: #### U NICHOLE 24 #### [facility] [address] [address] [address] Lizzette Braga Calcium Phosphate [facility] Comment on above: Performed By: #### U NICHOLE 24 #### [facility] [address] [place] [address] Dr. Lizzette Braga Calcium Stearate [facility] Comment on above: Performed By: #### U NICHOLE 24 #### [facility] [address] [place] [address] Dr. Lizzette Braga Carbonate Apatite [facility] Comment on above: Performed By: #### U NICHOLE 24 #### [facility] [address] [place] [address] Dr. Lizzette Braga Cellular Material [facility] Comment on above: Performed By: #### U NICHOLE 24 #### [facility] [address] [address] [address] Lizzette Braga Cholesterol [facility] Comment on above: Performed By: #### U NICHOLE 24 #### [facility] [address] [place] [address] Dr. Lizzette Braga Color (U) Brown Normal [facility] Comment on above: Performed By: #### U NICHOLE 24 #### [facility] [address] [place] [address] Dr. Lizzette Braga Comment [facility] Comment on above: Performed By: #### U NICHOLE 24 #### [facility] [address] [place] [address] Dr. Lizzette Braga Comment: Comment Normal [facility] Comment on above: Result Comment: Lyle carias questions regarding Calculi Analysis contact [facility] at: [phone]. Performed By: #### U NICHOLE 24 #### [facility] [address] [place] [address] Dr. Lizzette Braga Composition Comment Normal [facility] Comment on above: Result Comment: Perc entage (Represents the % composition) Performed By: #### U NICHOLE 24 #### [facility] [address] [place] [address] Dr. Lizzette Braga Cystine Normal [facility] Comment on above: Performed By: #### U NICHOLE 24 #### [facility] [address] [place] [address] Dr. Lizzette Braga Disclaimer: Comment Normal [facility] Comment on above: Result Comment: This test was developed and its performance characteristics determined by [facility]. It has not been cleared or approved by the Food and Drug Administration. Performed By: #### U NICHOLE 24 #### [facility] [address] [place] [address] Dr. Lizzette Braga Dried Blood Normal [facility] Comment on above: Performed By: #### U NICHOLE 24 #### [facility] [address] [place] [address] Dr. Lizzette Braga Drug or Metabolite Normal [facility] Comment on above: Performed By: #### U NICHOLE 24 #### [facility] [address] [place] [address] Dr. Lizzette Braga Hydroxyapatite Normal [facility] Comment on above: Performed By: #### U NICHOLE 24 #### [facility] [address] [place] [address] Dr. Lizzette Braga Mg NH4 PO4 (Struvite) [facility] Comment on above: Performed By: #### U NICHOLE 24 #### [facility] [address] [place] [address] Dr. Lizzette Braga MgHPO4 (Newberyite) Normal [facility] Comment on above: Performed By: #### U NICHOLE 24 #### [facility] [address] [address] [address] Lizzette Braga Other component(s) Normal [facility] Comment on above: Performed By: #### U NICHOLE 24 #### [facility] [address] [address] [address] Lizzette Braga PDF . Normal [facility] Comment on above: Performed By: #### U NICHOLE 24 #### [facility] [address] [address] [address] Lizzette Braga Photo Comment [facility] Comment on above: Result Comment: Phot ograph will follow under a separate cover Performed By: #### U NICHOLE 24 #### [facility] [address] [address] [address] Lizzette Braga Please note: Comment [facility] Comment on above: Result Comment: Calc romelia report will follow via computer, mail or catholic priest delivery. Performed By: #### U NICHOLE 24 #### [facility] [address] [place] [address] Dr. Lizzette Braga Size 3x3 [facility] Comment on above: Result Comment: Mult iple pieces received. Dimensions of the largest piece reported. Performed By: #### U NICHOLE 24 #### [facility] [address] [place] [address] Dr. Lizzette Braga Sodium Acid Urate Normal [facility] Comment on above: Performed By: #### U NICHOLE 24 #### [facility] [address] [address] [address] Lizzette Braga Source Comment [facility] Comment on above: Result Comment: Not provided Performed By: #### U NICHOLE 24 #### [facility] [address] [place] [address] Dr. Lizzette Braga Triamterene [facility] Comment on above: Performed By: #### U NICHOLE 24 #### [facility] [address] [place] [address] Dr. Lizzette Braga Uric Acid [facility] Comment on above: Performed By: #### U NICHOLE 24 #### [facility] [address] [place] [address] Dr. Lizzette Braga Uric Acid Dihydrate Normal [facility] Comment on above: Performed By: #### U NICHOLE 24 #### [facility] [address] [place], [place] [address] Dr. Lizzette Braga Weight 84 mg Normal [facility] Comment on above: Performed By: #### U NICHOLE 24 #### [facility] [address] [place], [place] [address] Dr. Lizzette Braga Xanthine Normal [facility] Comment on above: Performed By: #### U NICHOLE 24 #### [facility] [address] [place], [place] [address] Dr. Lizzette Braga XR KUB 1 VIEWon [...] by: ISRRAEL COOPER Date: 2021 07:38 Normal [facility] COVID-19 Positive/Negativeon 02-25-2021 SARS-CoV-2 (COVID-19) N gene TREVOR+probe Ql (Resp) Negative Negative [facility] Comment on above: Testing for SARS-CoV -2 by RT-PCRThis test was developed and its performance characteristics determined by [employer] ([employer]) and validated at the [facility]. This test has not been FDA [...] 10*3/uL 0.0-0.2 [facility] Basophils/100 WBC Auto (Bld) on 02-14-2021 Basophils/100 WBC (Bld) 0.5 % [facility] Blood hemoglobin measurement (mass/volume)on 02-14-2021 Hemoglobin (Bld) [Mass/Vol] 14.3 g/dL 11.8-15.4 [facility] Blood leukocytes automated c ount (number/volume)on 02-14-2021 WBC (Bld) [#/Vol] 5.0 10*3/uL 4.5-11.0 [facility] Creatinine and Glomerular fi ltration rate.predicted panel (S/P/Bld)on 02-14-2021 Creatinine [Mass/Vol] 0.89 mg/dL 0.44-1.03 [facility] Eosinophils Auto (Bld) [#/Vo l]on 02-14-2021 Eosinophils (Bld) [#/Vol] 0.1 10*3/uL 0.0-0.45 [facility] Eosinophils/100 WBC Auto (Bl d)on 02-14-2021 Eosinophils/100 WBC (Bld) 1.3 % [facility] Erythrocyte distribution wid th Auto (RBC) [Ratio]on 02-14-2021 Erythrocyte distribution width (RBC) [Ratio] 12.8 % 11.9-15.3 [facility] Estimated glomerular filtrat ion rate (GFR) non- Americanon 02-14-2021 GFR/1.73 sq M.predicted among non-blacks MDRD (S/P/Bld) [Vol rate/Area] > 60 mL/Min [facility] Hematocrit Auto (Bld) [Volum e fraction]on 02-14-2021 Hematocrit (Bld) [Volume fraction] 42.9 % 34.0-46.4 [facility] Laboratory - Hematology and Cell countson 02-14-2021 Nucleated RBC/100 WBC (Bld) [Ratio] 0.3 % 0-0.5 [facility] Lymphocytes Auto (Bld) [#/Vo l]on 02-14-2021 Lymphocytes (Bld) [#/Vol] 1.0 10*3/uL 1.00-4.8 [facility] Lymphocytes/100 WBC Auto (Bl d)on 02-14-2021 Lymphocytes/100 WBC (Bld) 19.9 % [facility] MCH Auto (RBC) [Entitic mass ]on 02-14-2021 MCH (RBC) [Entitic mass] 31.1 pg 24.7-34.3 [facility] MCHC Auto (RBC) [Mass/Vol]on 02-14-2021 MCHC (RBC) [Mass/Vol] 33.5 g/dL 32.0-35.0 [facility] MCV Auto (RBC) [Entitic vol] on 02-14-2021 MCV (RBC) [Entitic vol] 93.0 fL 80-100 [facility] Monocytes Auto (Bld) [#/Vol] on 02-14-2021 Monocytes (Bld) [#/Vol] 0.4 10*3/uL 0.0-0.8 [facility] Monocytes/100 WBC Auto (Bld) on 02-14-2021 Monocytes/100 WBC (Bld) 7.1 % [facility] Neutrophils Auto (Bld) [#/Vo l]on 02-14-2021 Neutrophils (Bld) [#/Vol] 3.6 10*3/uL 1.8-7.7 [facility] Neutrophils/100 WBC Auto (Bl d)on 02-14-2021 Neutrophils/100 WBC (Bld) 71.2 % [facility] No Panel Informationon 02-14 Estimated GFR () > 60 mL/Min [facility] Comment on above: GFR estimated refere nce range: According to KDOQI guidelines, <60 ml/min/1.73m2 is sufficient to diagnose a patient with chronic kidney disease. Pharmacy Creatinine Clearance (Chem N/A [facility] Platelet mean volume Auto (B ld) [Entitic vol]on 02-14-2021 Platelet mean volume (Bld) [Entitic vol] 10.2 fL 6.3-10.7 [facility] Platelets Auto (Bld) [#/Vol] on 02-14-2021 Platelets (Bld) [#/Vol] 198 10*3/uL 150-450 [facility] RBC Auto (Bld) [#/Vol]on RBC (Bld) [#/Vol] 4.61 10*6/uL 3.60-5.00 [facility] Serum or plasma calcium macario urement (mass/volume)on 02-14-2021 Calcium [Mass/Vol] 9.5 mg/dL 8.2-10.2 [facility] Serum or plasma chloride tylor surement (moles/volume)on 02-14-2021 Chloride [Moles/Vol] 100 mmol/L 95-114 [facility] Serum or plasma glucose macario urement (mass/volume)on 02-14-2021 Glucose [Mass/Vol] 93 mg/dL 70-100 [facility] Comment on above: ADA recommended refe rence rangeRandom Glucose Reference Range is dependent on time and content of last meal. Glucose of more than 200 mg/dL in a nonstressed, ambulatory subject supports the diagnosis of Diabetes Mellitus. Serum or plasma potassium me asurement (moles/volume)on 02-14-2021 Potassium [Moles/Vol] 4.2 mmol/L 3.5-5.1 [facility] Serum or plasma sodium measu rement (moles/volume)on 02-14-2021 Sodium [Moles/Vol] 139 mmol/L 136-146 [facility] Serum or plasma total carbon dioxide measurement (moles/volume)on 02-14-2021 CO2 [Moles/Vol] 24.7 mmol/L 22.0-30.0 [facility] Serum or plasma urea nitroge n measurement (mass/volume)on 02-14-2021 Urea nitrogen [Mass/Vol] 20 mg/dL 9-23 [facility] Vital Signs Date Time Vital Sign Value Performing Clinician Facility 02-29-2024 11:18-0400 Blood Pressure Location Roland VELEZ [facility] 02-29-2024 11:18-0400 Body temperature 98.6 [degF] Roland VELEZ [facility] 02-29-2024 11:18-0400 Diastolic blood pressure 84 mm[Hg] Roland VELEZ [facility] 02-29-2024 11:18-0400 Heart rate 69 /min Roland VELEZ [facility] 02-29-2024 11:18-0400 Respiratory rate 16 /min Roland VELEZ [facility] 02-29-2024 11:18-0400 Systolic blood pressure 124 mm[Hg] Roland VELEZ [facility] 07-16-2023 14:59-0500 Body height 165.1 cm Liborio Sarabia MD Work Phone: [facility] 07-16-2023 14:59-0500 Body temperature 97.5 [degF] Liborio Sarabia MD Work Phone: [facility] 07-16-2023 14:59-0500 Body weight 58.15 kg Liborio Sarabia MD Work Phone: [facility] 07-16-2023 14:59-0500 Diastolic blood pressure 70 mm[Hg] Liborio Sarabia MD Work Phone: [facility] 07-16-2023 14:59-0500 Heart rate 80 /min Liborio Sarabia MD Work Phone: [facility] 07-16-2023 14:59-0500 Respiratory rate 16 /min Liborio Sarabia MD Work Phone: [facility] 07-16-2023 14:59-0500 SaO2% (BldA) [Mass fraction] 100 % Liborio Sarabia MD Work Phone: [facility] 07-16-2023 14:59-0500 Systolic blood pressure 159 mm[Hg] Liborio Sarabia MD Work Phone: [facility] 06-19-2023 14:45-0400 Body height 161.29 cm Juma Ball Other [employer] Other 06-19-2023 14:45-0400 Body mass index (BMI) [Ratio] 22.14 kg/m2 Juma Ball Other [employer] Other 06-19-2023 14:45-0400 Body weight 57.61 kg Juma Ball Other [employer] Other 06-19-2023 14:45-0400 Diastolic blood pressure 79 mm[Hg] Juma Ball Other [employer] Other 06-19-2023 14:45-0400 Respiratory rate 12 /min Juma Ball Other [employer] Other 06-19-2023 14:45-0400 Systolic blood pressure 156 mm[Hg] Juma Ball Other [employer] Other 10-28-2022 16:30-0500 Body height 161.29 cm Karina Carlson Other [employer] Other 10-28-2022 16:30-0500 Body mass index (BMI) [Ratio] 21.97 kg/m2 Karina Carlson Other [employer] Other 10-28-2022 16:30-0500 Body temperature 97.3 [degF] Karina Carlson Other [employer] Other 10-28-2022 16:30-0500 Body weight 57.15 kg Karina Carlson Other [employer] Other 10-28-2022 16:30-0500 Respiratory rate 19 /min Karina Carlson Other [employer] Other 10-28-2022 16:30-0500 SaO2% (BldA) [Mass fraction] Karina Carlson Other [employer] Other 08-06-2022 15:15-0500 Blood Pressure Location Roland VELEZ [facility] 08-06-2022 15:15-0500 Diastolic blood pressure 80 mm[Hg] Roland VELEZ [facility] 08-06-2022 15:15-0500 Heart rate 72 /min Roland VELEZ [facility] 08-06-2022 15:15-0500 Systolic blood pressure 141 mm[Hg] Roland VELEZ [facility] 06-16-2022 15:31-0400 Body height 165.1 cm Liborio Sarabia MD Work Phone: [facility] 06-16-2022 15:31-0400 Body temperature 97.39 [degF] Liborio Sarabia MD Work Phone: [facility] 06-16-2022 15:31-0400 Body weight 55.97 kg Liborio Sarabia MD Work Phone: [facility] 06-16-2022 15:31-0400 Diastolic blood pressure 67 mm[Hg] Liborio Sarabia MD Work Phone: [facility] 06-16-2022 15:31-0400 Heart rate 82 /min Liborio Sarabia MD Work Phone: [facility] 06-16-2022 15:31-0400 Respiratory rate 16 /min Liborio Sarabia MD Work Phone: [facility] 06-16-2022 15:31-0400 SaO2% (BldA) [Mass fraction] 99 % Liborio Sarabia MD Work Phone: [facility] 06-16-2022 15:31-0400 Systolic blood pressure 147 mm[Hg] Liborio Sarabia MD Work Phone: [facility] 03-12-2022 10:42-0400 Blood Pressure Location Rolandmari VELEZ [facility] 03-12-2022 10:42-0400 Diastolic blood pressure 89 mm[Hg] Roland VELEZ [facility] 03-12-2022 10:42-0400 Heart rate 85 /min Roland VELEZ [facility] 03-12-2022 10:42-0400 Respiratory rate 16 /min Roland VELEZ [facility] 03-12-2022 10:42-0400 Systolic blood pressure 139 mm[Hg] Roland VELEZ [facility] Encounters Encounter Date Encounter Type Care Provider Facility Start: 03-03-2025 ambulatory Roland Dominguezi ty:[facility] Start: 05-20-2024 End: 05-20-2024 Patient encounter procedure [facility] Provider [facility] Department Start: 05-20-2024 End: 05-20-2024 Telephone encounter Audra Andrews nurse intern/Oncology Comment on above: DX code for screenin g mammogram needed Start: 04-13-2024 Non-patient / Non-visit DO Loi Buckner Work Phone: [facility] [employer] Work Phone: Start: 04-13-2024 End: 04-13-2024 ambulatory Roland VELEZ Facility:[id number] Start: 04-13-2024 End: 04-13-2024 Departed Referred DO Juma Harsh Work Phone: [facility] Start: 04-04-2024 Non-patient / Non-visit DO Loi Buckner Work Phone: [facility] [employer] Work Phone: Start: 02-29-2024 End: 02-29-2024 ambulatory Roland VELEZ Facility:[facility] [employer] Start: 02-29-2024 End: 02-29-2024 Patient encounter procedure Roland VELEZ [facility] Start: 07-17-2023 End: 07-17-2023 ambulatory Juma Harsh Other [facility] [employer] Other Start: 07-17-2023 Telephone encounter Juma Buckner [facility] Start: 07-16-2023 End: 07-16-2023 Patient encounter procedure Liborio Sarabia MD Work Phone: [facility] Start: 07-16-2023 End: 07-16-2023 ambulatory Liborio Sarabia MD Work Phone: Hematology/Oncology Comment on above: Malignant neoplasm o f upper-outer quadrant of right breast in female, estrogen receptor positive (HCC) (Primary Dx); Age-related osteoporosis without current pathological fracture Start: 06-19-2023 End: 06-19-2023 ambulatory Juma Buckner Other [employer] Other Start: 06-19-2023 Encounter for genera l adult medical examination without abnormal findings Juma Buckner [facility] Start: 06-19-2023 Periodic preventive med est patient 40-64yrs Juma Harsh [facility] Start: 04-27-2023 Telephone encounter Dipti Baumann RN Hematology/Oncology Comment on above: Orders Start: 10-28-2022 End: 10-28-2022 ambulatory Karina Carlson Other [employer] Other Start: 10-28-2022 Office outpatient ne w 20 minutes Karina Carlson [facility] Start: 08-06-2022 End: 08-06-2022 Patient encounter procedure Roland VELEZ [facility] [employer] Start: 06-16-2022 End: 06-16-2022 ambulatory Liborio Sarabia MD Work Phone: Hematology/Oncology Comment on above: Malignant neoplasm o f upper-outer quadrant of right breast in female, estrogen receptor positive (HCC) (Primary Dx); Age-related osteoporosis without current pathological fracture Start: 06-16-2022 End: 06-16-2022 Patient encounter procedure Liborio Sarabia MD Work Phone: [facility] Start: 04-01-2022 End: 04-01-2022 ambulatory DR ROLAND VELEZ Facility:H1 Start: 03-31-2022 End: 04-01-[address] ROLAND VELEZ Facility:[facility]1 Start: 03-12-2022 End: 03-12-2022 Patient encounter procedure Roland VELEZ [facility] [employer] Start: 02-27-2022 End: 02-28-[address] JUMA BUCKNER Facility:[facility]1 Start: 01-27-2022 Refill Ryna Daniels APRN.CNP Work Phone: Hematology/Oncology Comment on above: Refill Request Start: 04-26-2021 End: 04-26-[address] ROLAND VELEZ Facility:[facility]1 Start: 2021 End: [address] ROLAND VELEZ Facility:[facility]1 Start: 02-25-2021 End: 02-25-2021 Patient encounter procedure Adrian Oneal Jr Work Phone: -Pre-Surgical Testing Start: 02-14-2021 End: 02-14-2021 Patient encounter procedure Adrian Oneal Jr Work Phone: -Pre-Surgical Testing Procedures Date Procedure Procedure Detail Performing Clinician Start: 05-02-2022 Mammography Dipti shearer RN Start: 06-17-2021 Adult depression scr eening assessment Ryan Daniels DISTRIBUTION COLLECTION OPERATOR.PRESCHOOL ASSOCIATE TEACHER Work Phone: Start: 04-30-2021 Mammography Ryan ledesma DISTRIBUTION COLLECTION OPERATOR.PRESCHOOL ASSOCIATE TEACHER Work Phone: Start: 2021 Extracorporeal shock wave lithotripsy of calculus of kidney Roland VELEZ Start: 11-07-2019 Cystoscopy Roland MATHEWS Appendectomy Roland VELEZ Breast structure (cele dy structure) Roland VELEZ Tonsillectomy Roland VELEZ Plan of Treatment Date Care Activity Detail Author Start: 07-14-2024 End: 07-14-2024 Follow-up encounter 07/14/2024 3:45 PM EST Visit (SP) Office Hematology/Oncology [address] [place] [address] Liborio Sarabia MD [address] [place] [address] 1 year follow up Hematology/Oncology Comment on above: 1 year follow up Start: 07-14-2024 End: 07-14-2024 Patient encounter procedure 07/14/2024 3:30 PM EST Office Visit [facility] [address] [place] [address] 1 year follow up [facility] Comment on above: 1 year follow up Start: 06-17-2024 DIABETES SCREEN DIABETES SCREEN [facility] Start: 06-17-2024 Diabetes Screening Diabetes Screenin g [facility] Start: 05-08-2024 Covid-19 Vaccine ( season) Covid-19 Vaccine ( season) [facility] Start: 05-08-2024 Influenza vaccination Influenza Vacc ine (#1) [facility] Start: 05-04-2024 Mammography Mammogram Screening [facility] Start: 05-04-2024 Screening for malign ant neoplasm of breast Mammogram Screening [facility] Start: 04-10-2024 Screening for malign ant neoplasm of colon [facility] Start: 05-08-[address] [facility] Start: 05-02-2023 Mammography MAMMOGRAM [facility] Start: 09-07-2022 DEPRESSION ASSESSMENT DEPRESSION ASS [facility] Start: 06-17-2022 Adult depression screening assessment DEPRESSION SCREENING [facility] Start: 05-08-[address] [facility] Start: 04-30-2022 Mammography MAMMOGRAM [facility] Start: 09-07-2021 [facility] Start: 2020 RSV Vaccine (1 - 1-d ose 60+ series) RSV Vaccine (1 - 1-dose 60+ series) [facility] Start: 2010 SHINGRIX VACCINE (1 of 2) SHINGRIX VACCINE (1 of 2) [facility] Start: 2005 COLOGUARD (FIT-DNA) COLOGUARD (FIT-D NA) [facility] Start: 2005 Colonoscopy COLONOSCOPY [facility] Start: 2005 COLORECTAL CANCER SCREENING COLORECTAL CANCER SCREENING [facility] Start: [address] COLONOGRAPHY [facility] Start: 2005 FECAL OCCULT BLOOD FECAL OCCULT BLOO D [facility] Start: 2005 Lipid 1996 panel - S gisell or Plasma Lipid Screening [facility] Start: 2005 Lipid panel Lipid Screening [facility] Start: 2005 LIPID SCREEN LIPID SCREEN [facility] Start: 2005 Screening for malign ant neoplasm of colon [facility] Start: 2005 SIGMOIDOSCOPY SIGMOIDOSCOPY [facility] Start: 1990 HPV TESTING HPV TESTING [facility] Start: 1981 PAP TESTING PAP TESTING [facility] Start: 1981 Screening for malign ant neoplasm of cervix Cervical Cancer Screening [facility] Start: 1979 Urine microalbumin profile [facility] Start: 1978 Anxiety Screening Anxiety Screening [facility] Start: 1978 Depression Screening Depression Scre ening [facility] Start: 1978 HEPATITIS C SCREENING HEPATITIS C [facility] Start: 1978 Hepatitis C screening Hepatitis C [facility] Start: 1978 HIV SCREENING HIV SCREENING [facility] Start: 1978 HIV screening HIV Screening [facility] Start: 1966 PNEUMOCOCCAL (1 - PCV) PNEUMOCOCCAL (1 - PCV) [facility] Start: 1965 COVID-19 VACCINE (#1) COVID-19 VACCI NE (#1) [facility] Start: 1960 COVID-19 VACCINE (#1) COVID-19 VACCI NE (#1) [facility] End: 07-16-2023 Diagnostic mammography computer-aided detcj bi MEMO DIAGNOSTIC BILAT Radiology Routine Malignant neoplasm of upper-outer quadrant of right breast in female, estrogen receptor positive (HCC) 1 Occurrences starting 06/16/2022 until 07/16/2023 [facility] Work Phone: Comment on above: 1 Occurrences starti ng 06/16/2022 until 07/16/2023 End: 08-14-2024 DXA-FOREARM SKELETON DXA-FOREARM SKELETON Radiology Routine Age-related osteoporosis without current pathological fracture Malignant neoplasm of upper-outer quadrant of right breast in female, estrogen receptor positive (HCC) 1 Occurrences starting 07/16/2023 until 08/14/2024 [facility] Work Phone: Comment on above: 1 Occurrences starti ng 07/16/2023 until 08/14/2024 End: 05-26-2024 MEMO SCREENING MEMO SCREENING Radiology Routine Encounter for screening mammogram for malignant neoplasm of breast 1 Occurrences starting 04/27/2023 until 05/26/2024 [facility] Work Phone: Comment on above: 1 Occurrences starti ng 04/27/2023 until 05/26/2024 End: 08-14-2024 MEMO SCREENING W FAISAL MEMO SCREENING W FAISAL Radiology Routine Age-related osteoporosis without current pathological fracture Malignant neoplasm of upper-outer quadrant of right breast in female, estrogen receptor positive (HCC) 1 Occurrences starting 07/16/2023 until 08/14/2024 [facility] Work Phone: Comment on above: 1 Occurrences starti ng 07/16/2023 until 08/14/2024 [facility] Payers Date Payer Category Payer Self-pay [id number] 2016 Unknown [id number] 2012 Unknown MMO MMO [employer] [id number] 2012-Present [phone] [address] [place] [address] PPO [id number] 1960 Unknown [id number] 1960 Unknown [id number] 1960 Unknown [id number] 1960 Unknown [id number] 1960 Unknown [id number] 1960 Unknown [id number] 1960 Unknown [id number] 1959 Unknown [id number] Unknown [id number] Social History Date Type Detail Facility Start: 04-25-2014 End: 02-14-2021 Tobacco smoking status NHIS Never smoked tobacco (finding) [facility] Start: 1960 Sex Assigned At Female [facility] Start: 04-25-2014 Tobacco use and exposure Smokeless tobacco non-user [facility] Start: 06-17-2021 End: 06-16-2022 Alcohol intake Current non-drinker of alcohol (finding) [facility] Start: 1960 Sex Assigned At Not on file [facility] Start: 06-16-2022 End: 07-16-2023 Sex Assigned At Female [facility] Start: 06-06-2022 End: 06-16-2022 Exposure to SARS-CoV-2 (event) Not sure [facility] Tobacco smoking status Never [facility] Start: 06-16-2022 End: 07-16-2023 History of Social function [facility] Functional Status Date Assessment Result Facility 02-29-2024 Functional Status N/A [facility] 08-06-2022 Functional Status N/A [facility] 03-12-2022 Functional Status N/A [facility] Clinical Notes 09-02-2012 to 05-20-2024 Telephone Encounter - Audra Andrews RN - 05/20/2024 10:29 AM EDTTelephone Encounter - Audra Andrews RN - 05/20/2024 10:29 AM EDT Note Date & Type Note Facility 05-20-2024 Telephone encount er Note [facility] called for DX code to be added to screening mammogram order. Z12.31 added and faxed to requested # [phone]. Pt is scheduled next week. Audra Andrews RN [facility] 05-20-2024 Miscellaneous Notes Formattin g of this note might be different from the original. [facility] called for DX code to be added to screening mammogram order. Z12.31 added and faxed to requested # [phone]. Pt is scheduled next week. Audra Andrews RN documented in this encounter [facility] 02-29-2024 Hospital Discharg e instructions Patient Education [...] include: ?8 oz (237 mL) of milk, ypzzluw-ajpgkafjmjlu-gaxod milk, and calcium-fortifiedfruit juice. Calcium-fortified means that [...] ?Spinach (cooked), rhubarb, beets, sweet potatoes, and Wallisian chard. ?Peanuts. ?Potato chips, puerto rican fries, and baked potatoes with skin on. ?Nuts and nut products. ?Chocolate. If you regularly take a diuretic medicine, make sure to eat at least 1 or 2 servings of fruits or vegetables that are high in potassium each day. These include: ?Avocado. ?Banana. ?[place], prune, carrot, or tomato juice. ?Baked potato. [...] magnesium, fish oil, or vitamin B6. Take tezn-qkx-jbhgydz and prescription medicines only as told by [...] Casseroles. Pizza. Lasagna. Frozen meals. Potato chips. Latvian fries. The items listed above may not [...] provider. Document Revised: 12/04/2022 Document Reviewed: 12/04/2022 [employer] Patient Education 2022 [employer]. Follow Up Care 08/06/2022 16:16:25 With:PATRICIA STRICKLAND, Roland Barksdale, URL Address: [facility] [address] , [place] [address]- [phone] When: Unknown Comments:1 yr w/ PATRICIA [facility] 07-17-2023 Evaluation note Encounter Date Diagnosis Assessment Notes Jul, Malignant neoplasm of upper-outer quadrant of right female breast (ICD-10 - C50.411) Lumpectomy 2011, adjuvent chemotherapy, adjuvent radiation therapy, completed 9 years hormone therapy Jul, Estrogen receptor positive status [ER+] (ICD-10 - Z17.0) [employer] Other [id number] Nurse Note* Akua Jorge MA - 07/16/2023 3:02 PM EST Patient would like opinion on right hand pinky finger she has a bump her PCP looked at it said it was probably a cyst but she would still like your opinion, it has not changed at all. Akua Jorge MA documented [facility]23 NoteHNO ID: [id number] Author: Liborio Sarabia MD Service: ? Author Type: Physician Type: Progress Notes Filed: 07/17/2023 5:54 AM Note Text: PATIENT NAME: Albert Roberts DATE: 07/16/2023 PRIMARY CARE PHYSICIAN: Dr. [...] Diagnosis Date Breast cancer (HCC) Right; ER+ TX- PAST SURGICAL HISTORY: PAST SURGICAL HISTORY Procedure [...] 197 RADIOLOGY/OTHER STUDIES: 05/04/2023 Bilateral diagnostic mammogram ([employer]) Stable postsurgical change in the right breast. No mammographic evidence of malignancy.. Routine follow-up in 1 year recommended. 05/02/2022 Bone density DEXA ([employer]) Osteoporosis. Max T score -2.6 left femoral neck, left femur, and right femur. ASSESSMENT/PLAN: 1. 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 [...] Diagnosis Date Breast cancer (HCC) Right; ER+ TX- PAST SURGICAL HISTORY: PAST SURGICAL HISTORY Procedure [...] 197 RADIOLOGY/OTHER STUDIES: 05/04/2023 Bilateral diagnostic mammogram ([employer]) Stable postsurgical change in the right breast. No mammographic evidence of malignancy.. Routine follow-up in 1 year recommended. 05/02/2022 Bone density DEXA ([employer]) Osteoporosis. Max T score -2.6 left femoral neck, left femur, and right femur. ASSESSMENT/PLAN: 1. 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 Liborio Sarabia MD CC: Dr. Buckner documented in this encounterGlen[facility]10-13-2023 Evaluation note* Encounter Date Diagnosis Assessment [...] to the patient. Recommend referral for excision. [employer] Other 08-21-2023 Miscellaneous Notes* Telephone Encounter - Abiodun James - 04/27/2023 4:23 PM EDT Received order at front desk administrator. Faxed order April 27, 2023 4:23 PM Abiodun James * Telephone Encounter - Sheila Muir - 04/27/2023 2:22 PM EDT Will fax over kelle Camarena * Telephone Encounter - Dipti Baumann RN - 04/27/2023 1:14 PM EDT Patient is scheduled for aida diagnostic memo. Per their protocol since she is so far out from diagnosis they need a aida screening ordered with a screening dx. Dipti Baumann RN ' BRM: Order pended for signature. PSS: Please fax to [phone] Thanks. Dipti Baumann RN documented in this encounterGlen[facility] Hospital02-21-2023 Evaluation note* Encounter Date Diagnosis Assessment [...] to ER immediately, Conjunctivitis material was printed [employer] Other 11-30-2022 Hospital Discharge instructions Patient Education [...] include: ?Spinach. ?Rhubarb. ?Beets. ?Potato chips and puerto rican fries. ?Nuts. If you regularly take a diuretic medicine, make sure to eat at least 1 2 fruits or vegetables high in potassium each day. These include: ?Avocado. ?Banana. ?[place], prune, carrot, or tomato juice. ?Baked potato. [...] Casseroles. Pizza. Lasagna. Frozen meals. Potato chips. Latvian fries. Summary You can reduce your risk [...] 12/19/2011 Document Revised: 12/14/2019 Document Reviewed: 08/04/2017 [employer] Patient Education 2020 [employer]. Follow Up Care 04/30/2022 15:39:48 With:PATRICIA STRICKLAND, Roland Barksdale, URL Address: [facility] [address], [place] [address]- When: Unknown [facility] 10-10-2022 History of Present illness Narrative* Liborio Sarabia MD - 06/16/2022 8:13 AM EDT PATIENT NAME: Albert Roberts DATE: 06/16/2022 PRIMARY CARE PHYSICIAN: Dr. [...] Diagnosis Date Breast cancer (HCC) Right; ER+ TX- PAST SURGICAL HISTORY: PAST SURGICAL HISTORY Procedure [...] 197 RADIOLOGY/OTHER STUDIES: 05/02/2022 Bone density DEXA ([employer]) Osteoporosis. Max T score -2.6 left femoral neck, left femur, and right femur. And left femur 05/02/2022 Bilateral diagnostic mammogram ([employer]) Stable postsurgical change in the right breast. No mammographic evidence of malignancy or significant change. Routine follow-up in 1 year recommended. ASSESSMENT/PLAN: 1. Malignant neoplasm of upper-outer quadrant of right breast in female, estrogen receptor positive(HCC) - ICD9: 174.4, V86.0, ICD10: C50.411, Z17.0 Stage I (T1, N1mic, M0) high-grade, ER/TX positive HER-2 negative ductal carcinoma of the [...] arrange to be given at our office. Liborio Sarabia MD CC: Dr. Buckner documented in this encounterGlen[facility] Hospital07-06-[facility]22 Hospital Discharge instructions Patient Education 03/12/2022 [...] Follow these instructions at home: Medicines Take cvdw-sxk-gixddcr and prescription medicines only as told by [...] 08/24/2006 Document Revised: 01/10/2020 Document Reviewed: 01/10/2020 [employer] Patient Education 2020 [employer]. Follow Up Care 02/13/2022 09:45:15 With:PATRICIA STRICKLAND, TIM Herbert Address: [facility] [address] , [place] [address]- When:3 months Comments:w/metabolic workup [facility] 05-23-2022 Miscellaneous Notes* Telephone Encounter - Ryan Daniels APRN.CNP - 01/27/2022 4:44 PM EDT The following approved medication requests have been refused. 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 TEACHER documented in this encounterGlen[facility]12-27-2012 History of Past illness Narrative* Problem Noted Date Resolved Date Breast CA 09/02/2012 09/16/2018 Overview: Right; ER+ TX-; HER2 - documented as of this encounter (statuses as of 01/28/2022) [facility] History of Past illness Narrative* Problem Noted Date Resolved Date Breast CA 09/02/2012 09/16/2018 Overview: Right; ER+ TX-; HER2 - documented as of this encounter (statuses as of 06/17/2022) [facility] History of Past illness Narrative* Problem Noted Date Diagnosed Date Resolved Date Breast CA 09/02/2012 09/16/2018 Overview: Right; ER+ TX-; HER2 - documented as of this encounter (statuses as of 04/28/2023) [facility] History of Past illness Narrative* Problem Noted Date Diagnosed Date Resolved Date Breast CA 09/02/2012 09/16/2018 Overview: Right; ER+ TX-; HER2 - documented as of this encounter (statuses as of 07/17/2023) [facility] Future Appointments Appointment Date:06/23/2022 03:00:00 PM Scheduled Provider:Roland VELEZ MD Location:[facility] Appointment Type:URO Office Visit [facility] Evaluation + Plan note Future Appointments Appointment Date:08/10/2023 02:45:00 PM Scheduled Provider:Roland VELEZ MD Location:[facility] Appointment Type:URO Office Visit [facility] Evaluation + Plan note Future Appointments Appointment Date:03/03/2025 08:45:00 AM Scheduled Provider:Roland VELEZ MD Location:[facility] Appointment Type:URO Office Visit [facility] evaluation noteNo assessment information available [facility]* Diagnosis Malignant neoplasm of upper-outer quadrant of right breast in female, estrogen receptor positive (HCC)- Primary Age-related osteoporosis without current pathological fracture Senile osteoporosis documented in this encounter [facility]* Diagnosis Encounter for screening mammogram for malignant neoplasm of breast- Primary Other screening mammogram documented in this encounter [facility]* Diagnosis Malignant neoplasm of upper-outer quadrant of right breast in female, estrogen receptor positive (HCC)- Primary Age-related osteoporosis without current pathological fracture Senile osteoporosis documented in this encounter [facility] general Narrative - Reported* Type Description Date Medical History Breast cancer Surgical History appendectomy Surgical History tonsillectomy Surgical History lumpectomy, right breast x2 201 2 Hospitalization History see above surgical histo ry [employer] Other History general Narrative - Reported* Type Description Date Medical History Breast cancer Medical History Nephrolithiasis Medical History Osteopenia of lumbar spine Surgical History appendectomy Surgical History tonsillectomy Surgical History lumpectomy, right breast x2 201 2 Hospitalization History see above surgical histo ry [employer] Other Hospital course Narrative No data available for this section [facility] [employer] note No data available for this section [facility] [employer] Reason for referral (narrative)* Diagnostic Procedure Only (Routine) - Pending Review Specialty Diagnoses / Procedures Referred By Contac t Referred To Contact [facility] Diagnoses Malignant neoplasm of upper-outer quadrant of right breast in female, estrogen receptor positive (HCC) Procedures MEMO DIAGNOSTIC BILAT DIAGNOSTIC MAMMOGRAPHY COMPUTER-AIDED DETCJ Liborio Miranda MD [address] [place] [address] [place] [address] [place] [phone] Referral ID Status Reason Start Date Expiration Date Visits Requested Visits Authorized [id number] Pending Review Auto-Generat ed Referral 2 07/16/[address] [facility] for referral (narrative)* Diagnostic Procedure Only (Routine) - Pending Review Specialty Diagnoses / Procedures Referred By Eliezer augustine Referred To Contact [facility] Diagnoses Encounter for screening mammogram for malignant neoplasm of breast Procedures MEMO SCREENING SCREENING MAMMOGRAPHY BI 2-VIEW BREAST INC Liborio Chau MD [address] [place] [address] [place] [address] [facility] [address] [place] [address] Referral ID Status Reason Start Date Expiration Date Visits Requested Visits Authorized [id number] Pending Review Auto-Generat ed Referral 04/27/2023 05/26/[address] [facility] for referral (narrative)* Diagnostic Procedure Only (Routine) - Pending Review Specialty Diagnoses / Procedures Referred By Contac t Referred To Contact XR IMAGING Diagnoses Age-related osteoporosis without current pathological fracture Malignant neoplasm of upper-outer quadrant of right breast in female, estrogen receptor positive (HCC) Procedures DXA-FOREARM SKELETON DXA BONE DENSITY STUDY 1/>SITES APPENDICLR Liborio Morales MD [address] [place] [address] [place] [address] [place] [id number] Referral ID Status Reason Start Date Expiration Date Visits Requested Visits Authorized [id number] Pending Review Auto-Generat ed Referral 07/16/2023 08/14/2024 [...] BI SCREENING MAMMOGRAPHY BI 2-VIEW BREAST INC Liborio Chau MD [address] [place] [address] [place] [address] [facility] [address] [place] [address] Referral ID Status Reason Start Date Expiration Date Visits Requested Visits Authorized [id number] Pending Review Auto-Generat ed Referral 07/16/2023 08/14/2024 1 1 [facility] Chief Complaint and Reason for Visit [...] or prosecute any alcohol or drug abuse patient.[facility] HospitalIn the event this information is protected by the Federal Confidentiality of Alcohol and Drug Abuse Patient Records regulations: The Federal rules restrict any use of the information to criminally investigate or prosecute any alcohol or drug abuse patient.[facility] HospitalIn the event this information is protected by the Federal Confidentiality of Alcohol and Drug Abuse Patient Records regulations: The Federal rules restrict any use of the information to criminally investigate or prosecute any alcohol or drug abuse patient.[facility] HospitalIn the event this information is protected by the Federal Confidentiality of Alcohol and Drug Abuse Patient Records regulations: The Federal rules restrict any use of the information to criminally investigate or prosecute any alcohol or drug abuse patient.[facility] HospitalIn the event this information is protected by the Federal Confidentiality of Alcohol and Drug Abuse Patient Records regulations: The Federal rules restrict any use of the information to criminally investigate or prosecute any alcohol or drug abuse patient.[facility] HospitalIn the event this information is protected by the Federal Confidentiality of Alcohol and Drug Abuse Patient Records regulations: The Federal rules restrict any use of the information to criminally investigate or prosecute any alcohol or drug abuse patient.[facility] Reason for Visit (unrecogniz ed section and content) Reason Comments Refill Request Reason Comments Breast Cancer Reason Comments Orders Reason Comments Breast Cancer 1 year follow up Reason Comments DX code for screening mammogram needed Care Teams (unrecognized sec tion and content) Splash Line Operator Relationship Specialty Start Date End Date Samm Palmer PCP - General Family Practice 01/15/12 Splash Line Operator Relationship Specialty Start Date End Date Juma Buckner DO [address] [facility] [place] [address] PCP - General Internal Medicine 06/16/22 Splash Line Operator Relationship Specialty Start Date End Date Juma Buckner DO [address] [facility] [place] [address] PCP - General Internal Medicine 06/16/22 Splash Line Operator Relationship Specialty Start Date End Date Juma Buckner DO [address] [facility] [place] [address] PCP - General Internal Medicine 06/16/22 Team Status: Active Member Role Status Dates Juma Buckner DO Primary Care Provider Active Team Status: Active Member Role Status Dates Juma Buckner DO Primary Care Provider Active Start: April 04, 2024 Roland Velez MD Attending Provider Active St art: April 04, 2024 Team Status: Inactive Member Role Status Dates Juma Buckner DO Primary Care Provide r, Attending Provider Active Start: April 13, 2024 End: April 13, 2024 Team Status: Active Member Role Status Dates Juma Buckner DO Primary Care Provide r, Attending Provider Active Start: April 13, 2024 Splash Line Operator Relationship Specialty Start Date End Date Juma Buckner DO [address] [facility] [place] [address] PCP - General Internal Medicine 06/16/22 Splash Line Operator Relationship Specialty Start Date End Date Juma Buckner DO [address] [facility] [place] [address] PCP - General Internal Medicine 06/16/22 INFORMATION SOURCE (unrecogn ized section and content) DATE CREATED AUTHOR 04/08/2022 [facility] DATE CREATED AUTHOR AUTHOR'S ORGANIZ ATION 03/05/2024 [facility] DATE CREATED AUTHOR AUTHOR'S ORGANIZ ATION 04/20/2024 [facility] DATE CREATED AUTHOR AUTHOR'S GORGEJENARO ATION 05/22/2024 [facility] FOR RECORDS PERTAINING TO PATIENTS WHO ARE [...] BE BASED ON THE PRIMARY CLINICAL RECORDS. [facility]. provides no warranty or guarantee of the accuracy or completeness of information in this document.
[2024-05-26] MEDS: LACTATED RINGER'S SOLUTION 1,000 ML 50 ML IV (10:53)
[2024-05-26] MEDS: CIPROFLOXACIN 400 MG/200 ML D5W PREMIX 200 MG IV (11:56)
--- NOTE | 2024-05-26 12:48 | P.URON_ITS ---
Urology Surgery Operative Note Operative Note Procedure Date: 05/26/24 Time Out Performed: yes Pre-op Diagnosis: Right nephrolithiasis Post-op Diagnosis: same as pre-op Procedures performed: 1. Urethral dilation with Shilo sounds to 32 Albanian. 2. Cystoscopy. 3. Right ureteroscopy. 4. Right pyeloscopy. 5. Placement of 4.9 Albanian variable length right ureteral stent Anesthesia: General-LMA Primary Surgeon: Wu Velez Complications: None Estimated blood loss (mL): 5 Findings: 1. Severe urethral stenosis. 2. 5 to 6 mm right lower pole renal calculus embedded and not accessible Specimens: None Drains: 4.9 Albanian variable length right ureteral stent Indications for Procedures: This lady underwent a right ESWL for a 5 to 6 mm right renal calculus. The stone did not seem to fragment. She now presents for definitive ureteroscopic stone manipulation and possible stent placement. She has signed an informed consent after risks were explained. Detailed description of Procedure: The patient was brought to the operating room and placed on the operating room table in the supine position. SCDs were placed on the lower extremities and turned on and functioning during the entire case. Timeout was done by all parties in the room. We all agreed upon the patient's identification and the planned procedures for this patient. Genn. anesthesia was then administered. The patient was then repositioned into the modified dorsal lithotomy position. All pressure points were satisfactorily padded. Genitalia were sterilely prepped and draped in usual fashion. I started by attempting to pass a 22 Albanian Olympus cystoscope per urethra. I was unable due to her severe urethral stenosis. There was essentially no opening. I used Shilo sounds and dilated her up to 32 Albanian. The urethra bled because it was dry from atrophic vaginitis. I then passed the scope in the bladder. Panendoscopy revealed no evidence of any tumors or stones. While using fluoroscopy I could see a stone up in her kidney. I passed a Glidewire through the scope and up the ureter into the kidney. The scope was removed. I then passed a 10/12 ureteral access sheath over the wire and up the ureter to the L5 position. The stylette and wire were then removed. I then passed a flexible ureteroscope through the access sheath into the ureter and up into the kidney. I scoped within all of her upper mid and lower pole calyces. No stones were identified in the upper and mid calyces. While in the lower calyx I was able to get the scope right to the stone with fluoroscopic assistance. The stone was not visible through the scope but we could tell we are looking right towards it while using fluoroscopy. This stone was still embedded within the renal papilla and there was no access to it. I was unable to safely crack up and remove this stone. The scope was then removed. I then slid a Glidewire through the access sheath up into the kidney and removed the sheath. The cystoscope was backloaded over the wire and passed into the bladder. I then slid a 4.9 Albanian variable length stent over the wire up to the kidney. The wire was removed and there were good curls in the kidney and in the bladder. The bladder was drained of its contents and the scope was then removed. She was then transferred to a [facility] bed and wheeled to PACU in stable condition.
== END 2024-05-26 14:00 | disposition home or self-care (01) ==
PROVIDERS: PCP Internal Medicine; Visit Provider Urology
PROC: (CPT 910; principal; 2024-05-26 10:50)
DX: N20.0 Calculus of kidney (principal); N35.92 Unspecified urethral stricture, female; R31.9 Hematuria, unspecified; Z85.3 Personal history of malignant neoplasm of breast; Z87.442 Personal history of urinary calculi
CPT/HCPCS: 52332; 52351; 76000; J0744; J1100; J1885; J2250; J2405; J2704; J3010

== ENCOUNTER 2024-05-28 10:06 | Emergency (ER) | payer OTHER, SELFPAY ==
--- OUTSIDE RECORDS SUMMARY | 2024-05-28 10:12 | XMS_ITS | CCD ---
Author Organization [facility] Care Team Providers Care Mining Manager Name Role Phone Adrian Oneal Jr Attending Provider [phone] Juma Buckner Primary Care Provider [phone] Samm Palmer Primary Care Provider [phone] JUMA BUCKNER Primary Care Physician PATRICIA, DR [...] Unavailable DO Juma Buckner Primary Care Provider [phone] DO Juma Buckner Attending Provider [phone] Juma Buckner Attending Unavailable Juma Buckner Primary Care Unavailable Juma Buckner Admitting Unavailable Juma Buckner DO Primary Care Provider JUMA BUCKNER Primary Care Unavailable LIBORIO SARABIA Attending Unavailable RYAN DANIELS Referring Unavailable JUMA BUCKNER Primary Care Unavailable RYAN DANIELS Referring Unavailable Allergies Allergy Classification Reported Allergen(s) Allergy Type Date of Onset Reaction(s) Facility Cephalosporins (antibiotic) (1 source) Cephalexin Drug Allergy 1 [facility] (12 sources) Cephalexin; Translations: [cephalexin] Drug Allergy 7 Unknown, Weal (disorder) [facility] (5 sources) Cephalexin; Translations: [Keflex] Drug Allergy [facility]ository (1 source) Cephalexin Drug Allergy 3 [facility] Repository Medications Current Medications Medication Drug Class(es) [...] Antibacterial, Polymyxin-class Antibacterial, Corticosteroid Start: 10-28-2022 Maxitrol 3.5-84724-9.1 apply directly under left eyelashes Ophthalmic Three [...] BID for 30 day(s), 120 tab(s), Refill(s) [address] [place] [address] [facility] #[id number], 165, cm, 02/29/24 11:29:00 EDT, Height/Length Dosing, [...] BID, # 180 tab(s), Refills(s) 3, Pharmacy: [facility] #[id number], 165, cm, 08/06/22 15:18:00 EST, Height/Length Dosing, [...] Test Name Value Interpretation Reference Range [facility] ([email or web address].[id number]) LOISALBERT Ericka ([id number]) 1960 F Date Time Provider Department 05/20/24 AUDRA ANDREWS During your visit today, we recorded the following information about you: Audra Andrews RN 05/20/2024 10:30 AM Signed [facility] called for DX code to be added to screening mammogram order. Z12.31 added and faxed to requested # [phone]. Pt is scheduled next week. Audra Andrews RN Allergies As of Date: 05/20/2024 Noted Allergy Reaction KEFLEX (CEPHALEXIN) 01/14/2017 16 - Unknown Date Reviewed: 07/17/2023 Reviewed by: Ryan Daniels APRN.SHIRRING TENDER - Fully Assessed Reason for Visit: DX [...] Status:Closed by AUDRA ANDREWS on 05/20/24 Normal [facility] Basophils Auto (Bld) [#/Vol] on 04-13-2024 Basophils (Bld) [#/Vol] 0.0 10 3/uL 0.0-0.1 [facility] Basophils/100 WBC Auto (Bld) on 04-13-2024 Basophils/100 WBC (Bld) 0.7 % 0.2-2.0 [facility] Eosinophils/100 WBC Auto (Bl d)on 04-13-2024 Eosinophils/100 WBC (Bld) 1.2 % 0.9-7.0 [facility] Erythrocyte distribution wid th Auto (RBC) [Ratio]on 04-13-2024 Erythrocyte distribution width (RBC) [Ratio] 12.1 % 11.0-15.0 [facility] Hematocrit Auto (Bld) [Volum e fraction]on 04-13-2024 Hematocrit (Bld) [Volume fraction] 41.0 % 36.0-48.0 [facility] Hemoglobin [Mass/volume] in Bloodon 04-13-2024 Hemoglobin (Bld) [Mass/Vol] 13.6 g/dL 12.0-16.0 [facility] Chip 04-13-2024 L Specimen: [id number] Received: 04/18/24 Status: GEMA Oneill Num: [id number] Spec Type: Impression Subm Dr: Juma Buckner DO Tissues: PATHPER Procedures: PATHREVIEW Age/ Patient Sex Location Account Attending Physician Albert Roberts 64/F LABELL [id number] Juma Buckner DO SPEC NUM: [id number] RECD: 04/18/24 STATUS: GEMA ONEILL NUM: [id number] GILA: 04/13/[address]: Juma Buckner DO ENTERED: 04/18/[address] [facility] [address]: SPEC TYPE: Impression DEPT: MALENA Alvarez ENTERED BY: [id number] RECV BY: [id number] ORDERED: PATHREVIEW ORDERED: PATHREVIEW Pathologist Review Abnormal [...] antineoplastics. Continuous clinical correlations are suggested CPT: 35508 -------- -------- Specimen: [id number] Received: 04/18/24 Status: GEMA Quintanaariel Num: [id number] Spec Type: Impression Subm Dr: Juma Buckner DO Tissues: PATHPER Procedures: PATHREVIEW -------- Patient: Albert Roberts [id number] (Continued) -------- Signed (signature on file) Yue Braga MD 04/18/242006 Normal [facility] - Hematology and Cell countson 04-13-2024 ESR (Bld) [Velocity] 6 mm/h <=[address] [facility] Immature granulocytes/100 WBC (Bld) 0.2 % 0.0-0.5 [facility] Leukocytes [#/volume] correc noe for nucleated erythrocytes in Blood by Automated counon 04-13-2024 WBC corrected for nucl RBC Auto (Bld) [#/Vol] 5.7 10 3/uL 4.0-11.0 [facility] Lymphocytes Auto (Bld) [#/Vo l]on 04-13-2024 Lymphocytes (Bld) [#/Vol] 1.1 10 3/uL Low 1.2-3.8 [facility] Lymphocytes/100 WBC Auto (Bl d)on 04-13-2024 Lymphocytes/100 WBC (Bld) 18.8 % Low 20.5-60.0 [facility] MCH Auto (RBC) [Entitic mass ]on 04-13-2024 MCH (RBC) [Entitic mass] 31.3 pg 26.7-34.0 [facility] MCHC Auto (RBC) [Mass/Vol]on 04-13-2024 MCHC (RBC) [Mass/Vol] 33.2 g/dL 29.9-35.2 [facility] MCV Auto (RBC) [Entitic vol] on 04-13-2024 MCV (RBC) [Entitic vol] 94.5 fL 81.0-99.0 [facility] Monocytes Auto (Bld) [#/Vol] on 04-13-2024 Monocytes (Bld) [#/Vol] 0.3 10 3/uL 0.3-0.8 [facility] Monocytes/100 WBC Auto (Bld) on 04-13-2024 Monocytes/100 WBC (Bld) 5.4 % 1.7-12.0 [facility] Neutrophils Auto (Bld) [#/Vo l]on 04-13-2024 Neutrophils (Bld) [#/Vol] 4.2 10 3/uL 1.4-6.5 [facility] Neutrophils/100 WBC Auto (Bl d)on 04-13-2024 Neutrophils/100 WBC (Bld) 73.7 % 43.0-75.0 [facility] No Panel Informationon 04-13 C-Reactive Protein, Quantitative <0.50 mg/dL <=0.50 [facility] Eosinophils # (Auto) 0.1 10 3/uL 0.0-0.7 [facility] Immature Granulocyte # (Auto) 0.01 10 3/uL 0.00-0.03 [facility] Platelet mean volume Auto (B ld) [Entitic vol]on 04-13-2024 Platelet mean volume (Bld) [Entitic vol] 11.2 fL 9.5-13.5 [facility] Platelets Auto (Bld) [#/Vol] on 04-13-2024 Platelets (Bld) [#/Vol] 199 10 3/uL 150-450 [facility] RBC Auto (Bld) [#/Vol]on RBC (Bld) [#/Vol] 4.34 10 6/uL 4.20-5.40 [facility] Serum or plasma free cefurox haylee measurement (mass/volume)on 04-13-2024 Cefuroxime free [Mass/Vol] Negative Negative [facility] Comment on above: Performed at: [facility] [employer] [place] [id number] Director: Dima Sosa PhD, Phone: [phone] Activated partial thrombopla stin time (aPTT) in platelet poor plasma by coagulation aon 04-04-2024 aPTT Coag (PPP) [Time] 29.7 s 22.3-36.2 [facility] Basophils Auto (Bld) [#/Vol] on 04-04-2024 Basophils (Bld) [#/Vol] 0.0 10 3/uL 0.0-0.1 [facility] Basophils/100 WBC Auto (Bld) on 04-04-2024 Basophils/100 WBC (Bld) 1.5 % 0.2-2.0 [facility] Eosinophils/100 WBC Auto (Bl d)on 04-04-2024 Eosinophils/100 WBC (Bld) 3.0 % 0.9-7.0 [facility] Erythrocyte distribution wid th Auto (RBC) [Ratio]on 04-04-2024 Erythrocyte distribution width (RBC) [Ratio] 12.0 % 11.0-15.0 [facility] Estimated glomerular filtrat ion rate (GFR) non- Americanon 04-04-2024 GFR/1.73 sq M.predicted among non-blacks MDRD (S/P/Bld) [Vol rate/Area] 58 mL/min/{1.73_m2} Low >=60 [facility] Hematocrit Auto (Bld) [Volum e fraction]on 04-04-2024 Hematocrit (Bld) [Volume fraction] 42.8 % 36.0-48.0 [facility] Hemoglobin [Mass/volume] in Bloodon 04-04-2024 Hemoglobin (Bld) [Mass/Vol] 14.2 g/dL 12.0-16.0 [facility] INR in Platelet poor plasma by Coagulation assayon 04-04-2024 INR Coag (PPP) [Relative time] 1.13 {INR} [facility] Comment on above: DESIRED INR:2.0-3.0 CONDITIONS NOT LISTED BELOW2.5-3.5 FOR PROSTHETIC HEART VALVE REPLACEMENT2.5-3.5 RECURRENT THROMBOSIS Laboratory - Chemistry and C hemistry - challengeon 04-04-2024 Calcium [Mass/Vol] 8.9 mg/dL 8.5-10.1 [facility] Chloride [Moles/Vol] 104 mmol/L 98-[address] [facility] CO2 [Moles/Vol] 27.6 mmol/L 21.0-32.0 [facility] Creatinine [Mass/Vol] 0.97 mg/dL 0.55-1.02 [facility] GFR/1.73 sq M.predicted MDRD (S/P/Bld) [Vol rate/Area] mL/min/{1.73_m2} >=60 [facility] Glucose [Mass/Vol] 92 mg/dL 74-106 [facility] Potassium [Moles/Vol] 4.0 mmol/L 3.5-5.1 [facility] Sodium [Moles/Vol] 140 mmol/L 136-145 [facility] Urea nitrogen [Mass/Vol] 25.0 mg/dL High 7.0-18.0 [facility] Urea nitrogen/Creatinine [Mass ratio] 25.8 mg/mg [facility] Laboratory - Hematology and Cell countson 04-04-2024 Immature granulocytes/100 WBC (Bld) 0.4 % 0.0-0.5 [facility] Leukocytes [#/volume] correc noe for nucleated erythrocytes in Blood by Automated counon 04-04-2024 WBC corrected for nucl RBC Auto (Bld) [#/Vol] 2.7 10 3/uL Low 4.0-11.0 [facility] Lymphocytes Auto (Bld) [#/Vo l]on 04-04-2024 Lymphocytes (Bld) [#/Vol] 0.9 10 3/uL Low 1.2-3.8 [facility] Lymphocytes/100 WBC Auto (Bl d)on 04-04-2024 Lymphocytes/100 WBC (Bld) 33.3 % 20.5-60.0 [facility] MCH Auto (RBC) [Entitic mass ]on 04-04-2024 MCH (RBC) [Entitic mass] 31.0 pg 26.7-34.0 [facility] MCHC Auto (RBC) [Mass/Vol]on 04-04-2024 MCHC (RBC) [Mass/Vol] 33.2 g/dL 29.9-35.2 [facility] MCV Auto (RBC) [Entitic vol] on 04-04-2024 MCV (RBC) [Entitic vol] 93.4 fL 81.0-99.0 [facility] Monocytes Auto (Bld) [#/Vol] on 04-04-2024 Monocytes (Bld) [#/Vol] 0.4 10 3/uL 0.3-0.8 [facility] Monocytes/100 WBC Auto (Bld) on 04-04-2024 Monocytes/100 WBC (Bld) 15.0 % High 1.7-12.0 [facility] Neutrophils Auto (Bld) [#/Vo l]on 04-04-2024 Neutrophils (Bld) [#/Vol] 1.3 10 3/uL Low 1.4-6.5 [facility] Neutrophils/100 WBC Auto (Bl d)on 04-04-2024 Neutrophils/100 WBC (Bld) 46.8 % 43.0-75.0 [facility] No Panel Informationon 04-04 Eosinophils # (Auto) 0.1 10 3/uL 0.0-0.7 [facility] Immature Granulocyte # (Auto) 0.01 10 3/uL 0.00-0.03 [facility] Platelet mean volume Auto (B ld) [Entitic vol]on 04-04-2024 Platelet mean volume (Bld) [Entitic vol] 10.9 fL 9.5-13.5 [facility] Platelets Auto (Bld) [#/Vol] on 04-04-2024 Platelets (Bld) [#/Vol] 198 10 3/uL 150-450 [facility] Prothrombin time (PT)on 03-08 PT Coag (PPP) [Time] 11.8 s High 9.0-11.[address] [facility] RBC Auto (Bld) [#/Vol]on RBC (Bld) [#/Vol] 4.58 10 6/uL 4.20-5.40 [facility] Serum or plasma anion gap de terminationon 04-04-2024 Anion gap [Moles/Vol] 12.4 mmol/L [facility] Ambulatory Visit Summaryon 0 02-29-2024 Ambulatory [...] [facility] [address], [place] [address]- [phone] Medications What How Much When Instructions New potassium citrate (potassium CITRATE 10 mEq ER Tab) 2 Tablets By Mouth 2 times a day Duration: 30 Days Refills: 11 Pickup at [facility] #[id number] Unchanged ergocalciferol (Vitamin D) By Mouth Every week Contact prescribing physician if questions or concerns Unchanged Non-Formulary Medication (Calcium) By Mouth Every day Contact prescribing physician if questions or concerns Pharmacy Information [facility] #[id number]: [address], [place] [phone] What How Much When Comments Stop Taking [...] ? Eat (more content not included)... Normal [facility] Patient Educationon 02-29-20 Patient Education Nephrology [...] Spinach (cooked), rhubarb, beets, sweet potatoes, and Cambodian chard. ? Peanuts. ? Potato chips, qatari fries, and baked potatoes with skin on. ? Nuts and nut products. ? Chocolate. ? If you regularly take a diuretic medicine, make sure to eat at least 1 or 2 servings of fruits or vegetables that are high in potassium each day. These include: ? Avocado. ? Banana. ? Hardin, prune, carrot, or tomato juice. ? Baked [...] fish oil, or vitamin B6. ? Take qign-cho-nrqmved and prescription medicines only as told by your health care provider. These include supplements. What foods sh (more content not included)... Normal [facility] Urology Office/Clinic Noteon 02-29-2024 Urology Office/Clinic Note Chief Complaint kidney stones and asymptomatic microhematuria HPI Staff 1 yr with KUB @ [facility] 02/24/24 due to kidney stones. Previous DX: asymptomatic microscopic hematuria, dysuria, gross hematuria, hydronephrosis with urinary obstruction due to ureteral calculus, kidney stones, lower abdominal pain, microscopic hematuria, ureteral stone. S/P ESWL 04/11/21. Started Effer-K 25mEq BID at prior OV. Electrolyte panel was not done. Could not find any pertaining labs from PCP ([facility], [facility] [place] either. Dysuria: no Incomplete bladder emptying: no [...] only been taking this once per day. [place] bloated when she took bid. Advised pt [...] [facility] [address], [place] [address]- [phone] Additional Instructions: 1 yr w/ KUB Patient [...] Tobacco Use:. Household (more content not included)... [facility] Comment on above: Result Comment: Elec tronically Signed By: Roland VELEZ MD\.br\Date and Time Signed: 02/29/24 12:00 EDT\.br\Electronically Co-Signed By: Nella Carrillo\.br\Date and Time Co-Signed: 02/29/24 11:56 EDT RAD - MISCon 02-25-2024 RAD - MISC [id number] [facility] CNOVSPon 07-16-2023 CNOVSP Visit (SP) Office (HEMAS[facility]) ALBERT ROBERTS ([id number]) 1960 F Date Time Provider Department 07/16/23 [...] Diagnosis Date Breast cancer (HCC) Right; ER+ AL- PAST SURGICAL HISTORY: PAST SURGICAL HISTORY Procedure [...] 197 RADIOLOGY/OTHER STUDIES: 05/04/2023 Bilateral diagnostic mammogram ([employer]) Stable postsurgical change in the right breast. No mammographic evidence of malignancy.. Routine follow-up in 1 year recommended. 05/02/2022 Bone density DEXA ([employer]) Osteoporosis. Max T score -2.6 left femoral neck, left femur, and right femur. ASSESSMENT/PLAN: 1. 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 Normal [facility] CNPNon 07-16-2023 CNPN Telephone (NCCAP) ALBERT ROBERTS ([id number]) 1960 F Date Time Provider Department 07/16/23 LIBORIO SARABIA NCCAMY During your visit today, we recorded the following information about you: Abiodun James 07/16/2023 3:[address] new DEXA order. I believe the DXA Forearm is incorrect? Thanks! Ryan Chirinos APRN.HEIDI 07/17/2023 11:40 AM Signed New order placed. Ryan Daniesl APRN.HEIDI Allergies As of Date: 07/16/2023 Noted Allergy Reaction KEFLEX (CEPHALEXIN) 01/14/2017 16 - Unknown Date Reviewed: 07/16/2023 Reviewed by: Akua Jorge MA - Fully Assessed Reason for Visit: Orders [681] Primary Visit Diagnosis:Osteopenia of multiple sites [M85.89] Order(s):DXA-AXIAL SKELETON [[id number]] Order #: [id number] FUTURE Prescriptions as of 07/17/2023 - KLOR-CON/EF [...] Status:Closed by ABIODUN JAMES on 07/17/23 Normal [facility] OXALATE 24HR URINEon 022 Oxalates, Urine 14 mg/L Normal Undefined [facility] Comment on above: Performed By: #### U NICHOLE 24 #### [facility] [address] [place] [address] [address] Lizzette Braga Oxalates, Urine 24hr 28 mg/24 hr Normal 4-31 [facility] Comment on above: Performed By: #### U NICHOLE 24 #### [facility] [address] [place] [address] [address] Lizzette Braga CITRATE URINE 24HRon 022 Citric Acid, U, 24hr 265 mg/24 hr Critically low 320-1240 [facility] Comment on above: Result Comment: This test was developed and its performance characteristics determined by [employer]. It has not been cleared or approved by the Food and Drug Administration. Performed By: #### U NICHOLE 24 #### [facility] [address] [place] [address] [address] Lizzette Braga Citric Acid, Urine 131 mg/L Normal Undefined [facility] Comment on above: Performed By: #### U NICHOLE 24 #### [facility] [address] [place] [address] Dr. Lizzette Braga MAGNESIUM 24HR URINEon 04-03 Magnesium 24hr Urine 68.9 mg/24 hr Normal 12.0-293.0 T [facility] Comment on above: Performed By: #### U NICHOLE 24 #### [facility] [address] [place] [address] Dr. Lizzette Braga Magnesium UR 3.4 mg/dL Normal Not Estab. [facility] Comment on above: Performed By: #### U NICHOLE 24 #### [facility] [address] [place] [address] Dr. Lizzette Braga PHOSPHORUS 24HR URINEon 03-08 Phosphorus, Urine 21.6 mg/dL Normal Not Estab. [facility] Comment on above: Performed By: #### U NICHOLE 24 #### [facility] [address] [place] [address] Dr. Lizzette Braga Phosphorus, Urine 24hr 437 mg/24 hr Normal 261-1078 [facility] Comment on above: Performed By: #### U NICHOLE 24 #### [facility] [address] [place] [address] Dr. Lizzette Braga URIC ACID 24 HR URINEon 03-08 Uric Acid, Urine 19.0 mg/dL Normal Not Estab. [facility] Comment on above: Performed By: #### U NICHOLE 24 #### [facility] [address] [place] [address] Dr. Lizzette Braga Uric Acid, Urine 24hr 384.8 mg/24 hr Normal 142.3-713. 2 [facility] Comment on above: Performed By: #### U NICHOLE 24 #### [facility] [address] [place] [address] Dr. Lizzette Braga CALCIUM 24 HR URINEon 2021 CALC, 24 HR UR 141.8 mg/24 hr Normal 100.0-300.0 [facility] Comment on above: Performed By: #### U NICHOLE 24 #### [facility] [address] [place] [address] Dr. Lizzette Braga UR CALCIUM 7.0 mg/dL Normal 5.1-21.0 [facility] Comment on above: Performed By: #### U NICHOLE 24 #### [facility] [address] [place] [address] Dr. Lizzette Braga CREA 24 HR URINEon 2 CREA, 24 HR UR 896.06 mg/24 hr Normal 800.00-1,8 00.0 0 [facility] Comment on above: Performed By: #### U NICHOLE 24 #### [facility] [address] [place] [address] Dr. Lizzette Braga URINE CREAT 44.25 mg/dL Normal 20.00-300.[address] [facility] Comment on above: Performed By: #### U NICHOLE 24 #### [facility] [address] [place] [address] Dr. Lizzette Braga PTH INTACTon 04-01-2022 PTH, Intact 36 pg/mL Normal 15-65 [facility] Comment on above: Performed By: #### U NICHOLE 24 #### [facility] [address] [place] [address] Dr. iLzzette Braga SODIUM 24 HR URINEon 022 NA, 24 HR UR 99 mmol/24 hr Normal 40-220 [facility] Comment on above: Performed By: #### U NICHOLE 24 #### [facility] [address] [place] [address] Dr. Lizzette Braga Sodium (U) [Moles/Vol] 49 mmol/L Normal 30-90 [facility] Comment on above: Performed By: #### U NICHOLE 24 #### [facility] [address] [place] [address] Dr. Lizzette Braga UR TOT VOL 2025 ml/24 HR Normal [facility] Comment on above: Performed By: #### U NICHOLE 24 #### [facility] [address] [place] [address] Dr. Lizzette Braga BUNon 03-31-2022 Urea nitrogen [Mass/Vol] 18.0 mg/dL Normal 7.0-18.0 [facility] Comment on above: Performed By: #### C O2, CA, URIC, NA, K, CREA, BUN, CL #### [facility] [address] [place] [address] Dr. Lizzette Braga CALCIUMon 03-31-2022 Calcium [Mass/Vol] 9.0 mg/dL Normal 8.5-10.1 [facility] Comment on above: Performed By: #### U NICHOLE 24 #### [facility] [address] [place] [address] Dr. Lizzette Braga CHLORIDEon 03-31-2022 Chloride [Moles/Vol] 105 mmol/L Normal 98-107 [facility] Comment on above: Performed By: #### C O2, CA, URIC, NA, K, CREA, BUN, CL #### [facility] [address] [place] [address] Dr. Lizzette Braga CO2on 03-31-2022 CO2 [Moles/Vol] 27.7 mmol/L Normal 21.0-32.0 [facility] Comment on above: Performed By: #### C O2, CA, URIC, NA, K, CREA, BUN, CL #### [facility] [address] [place] [address] Dr. Lizzette Braga CREATININEon 03-31-2022 Creatinine [Mass/Vol] 0.96 mg/dL Normal 0.55-1.02 [facility] Comment on above: Performed By: #### C O2, CA, URIC, NA, K, CREA, BUN, CL #### [facility] [address] [address] [address] Lizzette Braga EGFR-AF MONGOLIAN >60 Normal >=60 [facility] Comment on above: Performed By: #### C O2, CA, URIC, NA, K, CREA, BUN, CL #### [facility] [address] [place] [address] Dr. Lizzette Braga EGFR-NON AF MONGOLIAN 59 mL/min/1.73m2 Critically low >=60 [facility] Comment on above: Performed By: #### C O2, CA, URIC, NA, K, CREA, BUN, CL #### [facility] [address] [place] [address] Dr. Lizzette Braga NAon 03-31-2022 Sodium [Moles/Vol] 141 mmol/L Normal 136-145 [facility] Comment on above: Performed By: #### C O2, CA, URIC, NA, K, CREA, BUN, CL #### [facility] [address] [place] [address] Dr. Lizzette Braga POTASSIUMon 03-31-2022 Potassium [Moles/Vol] 4.1 mmol/L Normal 3.5-5.1 [facility] Comment on above: Performed By: #### C O2, CA, URIC, NA, K, CREA, BUN, CL #### [facility] [address] [place] [address] Dr. Lizzette Braga URIC ACID SERUMon 03-31-2022 Urate [Mass/Vol] 3.0 mg/dL Normal 2.6-6.0 [facility] Comment on above: Performed By: #### C O2, CA, URIC, NA, K, CREA, BUN, CL #### [facility] [address] [place] [address] Dr. Lizzette Braga XR KUB 1 VIEWon [...] ISRRAEL COOPER Date: 2022-02-28 06:17 Normal [facility] CALCULI, URINARYon 1 2,8 Dihydroxyadenine Normal [facility] Comment on above: Performed By: #### U NICHOLE 24 #### [facility] [address] [place] [address] Dr. Lizzette Braga Ammonium Acid Urate Normal [facility] Comment on above: Performed By: #### U NICHOLE 24 #### [facility] [address] [place] [address] Dr. Lizzette Braga Bilirubin Ql (U) Normal [facility] Comment on above: Performed By: #### U NICHOLE 24 #### [facility] [address] [address] [address] Lizzette Braga Ca Oxalate Dihydrate 20 % Normal [facility] Comment on above: Performed By: #### U NICHOLE 24 #### [facility] [address] [address] [address] Lizzette Braga CaHPO4 (Brushite) Normal [facility] Comment on above: Performed By: #### U NICHOLE 24 #### [facility] [address] [place] [address] Dr. Lizzette Braga Calcium Bilirubinate Normal [facility] Comment on above: Performed By: #### U NICHOLE 24 #### [facility] [address] [address] [address] Lizzette rBaga Calcium Carbonate Normal [facility] Comment on above: Performed By: #### U NICHOLE 24 #### [facility] [address] [place] [address] Dr. Lizzette Braga Calcium Oxalate Monohydrate 80 % [facility] Comment on above: Performed By: #### U NICHOLE 24 #### [facility] [address] [address] [address] Lizzette Braga Calcium Palmitate Normal [facility] Comment on above: Performed By: #### U NICHOLE 24 #### [facility] [address] [address] [address] Lizzette Braga Calcium Phosphate [facility] Comment on above: Performed By: #### U NICHOLE 24 #### [facility] [address] [place] [address] Dr. Lizzette Braga Calcium Stearate [facility] Comment on above: Performed By: #### U NICHOLE 24 #### [facility] [address] [place] [address] Dr. Lizzette Braga Carbonate Apatite [facility] Comment on above: Performed By: #### U NICHOLE 24 #### [facility] [address] [place] [address] Dr. Lizzette Braga Cellular Material [facility] Comment on above: Performed By: #### U NICHOLE 24 #### [facility] [address] [address] [address] Lizz[address] Br[address] Cholesterol [facility] Comment on above: Performed By: #### U NICHOLE 24 #### [facility] [address] [place] [address] Dr. Lizzette Braga Color (U) Brown Normal [facility] Comment on above: Performed By: #### U NICHOLE 24 #### [facility] [address] [place] [address] Dr. L[address] Br[address] Comment [facility] Comment on above: Performed By: #### U NICHOLE 24 #### [facility] [address] [place] [address] Dr. Lizzette Braga Comment: Comment Normal [facility] Comment on above: Result Comment: Lyle carias questions regarding Calculi Analysis contact [facility] at: [phone]. Performed By: #### U NICHOLE 24 #### [facility] [address] [place] [address] Dr. Lizzette Braga Composition Comment Normal [facility] Comment on above: Result Comment: Perc entage (Represents the % composition) Performed By: #### U NICHOLE 24 #### [facility] [address] [place] [address] Dr. Lizzette Braga Cystine Normal [facility] Comment on above: Performed By: #### U NICHOLE 24 #### [facility] [address] [place] [address] Dr. Lizzette Braga Disclaimer: Comment Normal [facility] Comment on above: Result Comment: This test was developed and its performance characteristics determined by [facility]. It has not been cleared or approved by the Food and Drug Administration. Performed By: #### U NICHOLE 24 #### [facility] [address] [place] [address] Dr. Lizzette Braga Dried Blood Normal [facility] Comment on above: Performed By: #### U NICHOLE 24 #### [facility] [address] [place] [address] Dr. Lizzette Braga Drug or Metabolite Normal [facility] Comment on above: Performed By: #### U NICHOLE 24 #### [facility] [address] [place] [address] Dr. Lizzette Braga Hydroxyapatite Normal [facility] Comment on above: Performed By: #### U NICHOLE 24 #### [facility] [address] [place] [address] Dr. Lizzette Braga Mg NH4 PO4 (Struvite) [facility] Comment on above: Performed By: #### U NICHOLE 24 #### [facility] [address] [place] [address] Dr. Lizzette Braga MgHPO4 (Newberyite) Normal [facility] Comment on above: Performed By: #### U NICHOLE 24 #### [facility] [address] [address] [address] Lizzette Braga Other component(s) Normal [facility] Comment on above: Performed By: #### U NICHOLE 24 #### [facility] [address] [address] [address] Lizzette Braga PDF . Normal [facility] Comment on above: Performed By: #### U NICHOLE 24 #### [facility] [address] [address] [address] Lizzette Braga Photo Comment [facility] Comment on above: Result Comment: Phot ograph will follow under a separate cover Performed By: #### U NICHOLE 24 #### [facility] [address] [address] [address] Lizzette Braga Please note: Comment [facility] Comment on above: Result Comment: Calc romelia report will follow via computer, mail or acute care certified nursing assistant delivery. Performed By: #### U NICHOLE 24 #### [facility] [address] [place] [address] Dr. Lizzette Braga Size 3x3 [facility] Comment on above: Result Comment: Mult iple pieces received. Dimensions of the largest piece reported. Performed By: #### U NICHOLE 24 #### [facility] [address] [place] [address] Dr. Lizzette Braga Sodium Acid Urate Normal [facility] Comment on above: Performed By: #### U NICHOLE 24 #### [facility] [address] [address] [address] Lizzette Braga Source Comment [facility] Comment on above: Result Comment: Not provided Performed By: #### U NICHOLE 24 #### [facility] [address] [place] [address] Dr. [address] Braga Tri[address]terene [facility] Comment on above: Performed By: #### U NICHOLE 24 #### [facility] [address] [place] [address] Dr. Lizzette Braga Uric Acid [facility] Comment on above: Performed By: #### U NICHOLE 24 #### [facility] [address] [place] [address] Dr. Lizzette Braga Uric Acid Dihydrate Normal [facility] Comment on above: Performed By: #### U NICHOLE 24 #### [facility] [address] [place], [place] [address] Dr. Lizzette Braga Weight 84 mg Normal [facility] Comment on above: Performed By: #### U NICHOLE 24 #### [facility] [address] [place], [place] [address] Dr. Lizzette Braga Xanthine Normal [facility] Comment on above: Performed By: #### U NICHOLE 24 #### [facility] [address] [place], [place] [address] Dr. Lizzette Braga XR KUB 1 VIEWon [...] by: ISRRAEL COOPER Date: 2021 07:38 Normal [facility] COVID-19 Positive/Negativeon 02-25-2021 SARS-CoV-2 (COVID-19) N gene TREVOR+probe Ql (Resp) Negative Negative [facility] Comment on above: Testing for SARS-CoV -2 by RT-PCRThis test was developed and its performance characteristics determined by [employer] and validated at the [facility]. This test has not been [...] 02-14-2021 Basophils (Bld) [#/Vol] 0.0 10*3/uL 0.0-0.2 [facility] Basophils/100 WBC Auto (Bld) on 02-14-2021 Basophils/100 WBC (Bld) 0.5 % [facility] Blood hemoglobin measurement (mass/volume)on 02-14-2021 Hemoglobin (Bld) [Mass/Vol] 14.3 g/dL 11.8-15.4 [facility] Blood leukocytes automated c ount (number/volume)on 02-14-2021 WBC (Bld) [#/Vol] 5.0 10*3/uL 4.5-11.0 [facility] Creatinine and Glomerular fi ltration rate.predicted panel (S/P/Bld)on 02-14-2021 Creatinine [Mass/Vol] 0.89 mg/dL 0.44-1.03 [facility] Eosinophils Auto (Bld) [#/Vo l]on 02-14-2021 Eosinophils (Bld) [#/Vol] 0.1 10*3/uL 0.0-0.45 [facility] Eosinophils/100 WBC Auto (Bl d)on 02-14-2021 Eosinophils/100 WBC (Bld) 1.3 % [facility] Erythrocyte distribution wid th Auto (RBC) [Ratio]on 02-14-2021 Erythrocyte distribution width (RBC) [Ratio] 12.8 % 11.9-15.3 [facility] Estimated glomerular filtrat ion rate (GFR) non- Americanon 02-14-2021 GFR/1.73 sq M.predicted among non-blacks MDRD (S/P/Bld) [Vol rate/Area] > 60 mL/Min [facility] Hematocrit Auto (Bld) [Volum e fraction]on 02-14-2021 Hematocrit (Bld) [Volume fraction] 42.9 % 34.0-46.4 [facility] - Hematology and Cell countson 02-14-2021 Nucleated RBC/100 WBC (Bld) [Ratio] 0.3 % 0-0.5 [facility] Lymphocytes Auto (Bld) [#/Vo l]on 02-14-2021 Lymphocytes (Bld) [#/Vol] 1.0 10*3/uL 1.00-4.8 [facility] Lymphocytes/100 WBC Auto (Bl d)on 02-14-2021 Lymphocytes/100 WBC (Bld) 19.9 % [facility] MCH Auto (RBC) [Entitic mass ]on 02-14-2021 MCH (RBC) [Entitic mass] 31.1 pg 24.7-34.3 [facility] MCHC Auto (RBC) [Mass/Vol]on 02-14-2021 MCHC (RBC) [Mass/Vol] 33.5 g/dL 32.0-35.0 [facility] MCV Auto (RBC) [Entitic vol] on 02-14-2021 MCV (RBC) [Entitic vol] 93.0 fL 80-100 [facility] Monocytes Auto (Bld) [#/Vol] on 02-14-2021 Monocytes (Bld) [#/Vol] 0.4 10*3/uL 0.0-0.8 [facility] Monocytes/100 WBC Auto (Bld) on 02-14-2021 Monocytes/100 WBC (Bld) 7.1 % [facility] Neutrophils Auto (Bld) [#/Vo l]on 02-14-2021 Neutrophils (Bld) [#/Vol] 3.6 10*3/uL 1.8-7.7 [facility] Neutrophils/100 WBC Auto (Bl d)on 02-14-2021 Neutrophils/100 WBC (Bld) 71.2 % [facility] No Panel Informationon 02-14 Estimated GFR () > 60 mL/Min [facility] Comment on above: GFR estimated refere nce range: According to KDOQI guidelines, <60 ml/min/1.73m2 is sufficient to diagnose a patient with chronic kidney disease. Pharmacy Creatinine Clearance (Chem N/A [facility] Platelet mean volume Auto (B ld) [Entitic vol]on 02-14-2021 Platelet mean volume (Bld) [Entitic vol] 10.2 fL 6.3-10.7 [facility] Platelets Auto (Bld) [#/Vol] on 02-14-2021 Platelets (Bld) [#/Vol] 198 10*3/uL 150-450 [facility] RBC Auto (Bld) [#/Vol]on RBC (Bld) [#/Vol] 4.61 10*6/uL 3.60-5.00 [facility] Serum or plasma calcium macario urement (mass/volume)on 02-14-2021 Calcium [Mass/Vol] 9.5 mg/dL 8.2-10.2 [facility] Serum or plasma chloride tylor surement (moles/volume)on 02-14-2021 Chloride [Moles/Vol] 100 mmol/L 95-114 [facility] Serum or plasma glucose macario urement (mass/volume)on 02-14-2021 Glucose [Mass/Vol] 93 mg/dL 70-100 [facility] Comment on above: ADA recommended refe rence rangeRandom Glucose Reference Range is dependent on time and content of last meal. Glucose of more than 200 mg/dL in a nonstressed, ambulatory subject supports the diagnosis of Diabetes Mellitus. Serum or plasma potassium me asurement (moles/volume)on 02-14-2021 Potassium [Moles/Vol] 4.2 mmol/L 3.5-5.1 [facility] Serum or plasma sodium measu rement (moles/volume)on 02-14-2021 Sodium [Moles/Vol] 139 mmol/L 136-146 [facility] Serum or plasma total carbon dioxide measurement (moles/volume)on 02-14-2021 CO2 [Moles/Vol] 24.7 mmol/L 22.0-30.0 [facility] Serum or plasma urea nitroge n measurement (mass/volume)on 02-14-2021 Urea nitrogen [Mass/Vol] 20 mg/dL 9-23 [facility] Vital Signs Date Time Vital Sign Value Performing Clinician Facility 02-29-2024 11:18-0400 Blood Pressure Location Roland VELEZ [facility] 02-29-2024 11:18-0400 Body temperature 98.6 [degF] Roland VELEZ [facility] 02-29-2024 11:18-0400 Diastolic blood pressure 84 mm[Hg] Roland VELEZ [facility] 02-29-2024 11:18-0400 Heart rate 69 /min Roland VELEZ [facility] 02-29-2024 11:18-0400 Respiratory rate 16 /min Roland VELEZ [facility] 02-29-2024 11:18-0400 Systolic blood pressure 124 mm[Hg] Roland VELEZ [facility] 07-16-2023 14:59-0500 Body height 165.1 cm Liborio Sarabia MD Work Phone: [facility] 07-16-2023 14:59-0500 Body temperature 97.5 [degF] Liborio Sarabia MD Work Phone: [facility] 07-16-2023 14:59-0500 Body weight 58.15 kg Liborio Sarabia MD Work Phone: [facility] 07-16-2023 14:59-0500 Diastolic blood pressure 70 mm[Hg] Liborio Sarabia MD Work Phone: [facility] 07-16-2023 14:59-0500 Heart rate 80 /min Liborio Sarabia MD Work Phone: [facility] 07-16-2023 14:59-0500 Respiratory rate 16 /min Liborio Sarabia MD Work Phone: [facility] 07-16-2023 14:59-0500 SaO2% (BldA) [Mass fraction] 100 % Liborio Sarabia MD Work Phone: [facility] 07-16-2023 14:59-0500 Systolic blood pressure 159 mm[Hg] Liborio Sarabia MD Work Phone: [facility] 06-19-2023 14:45-0400 Body height 161.29 cm Juma Ball Other [facility] Other 06-19-2023 14:45-0400 Body mass index (BMI) [Ratio] 22.14 kg/m2 Juma Ball Other [facility] Other 06-19-2023 14:45-0400 Body weight 57.61 kg Juma Ball Other [facility] Other 06-19-2023 14:45-0400 Diastolic blood pressure 79 mm[Hg] Juma Ball Other [facility] Other 06-19-2023 14:45-0400 Respiratory rate 12 /min Juma Ball Other [facility] Other 06-19-2023 14:45-0400 Systolic blood pressure 156 mm[Hg] Juma Ball Other [facility] Other 10-28-2022 16:30-0500 Body height 161.29 cm Karina Carlson Other [facility] Other 10-28-2022 16:30-0500 Body mass index (BMI) [Ratio] 21.97 kg/m2 Karina Carlson Other [facility] Other 10-28-2022 16:30-0500 Body temperature 97.3 [degF] Karina Carlson Other [facility] Other 10-28-2022 16:30-0500 Body weight 57.15 kg Karina Carlson Other [facility] Other 10-28-2022 16:30-0500 Respiratory rate 19 /min Karina Carlson Other [facility] Other 10-28-2022 16:30-0500 SaO2% (BldA) [Mass fraction] Karina Carlson Other [facility] Other 08-06-2022 15:15-0500 Blood Pressure Location Roland VELEZ [facility] 08-06-2022 15:15-0500 Diastolic blood pressure 80 mm[Hg] Roland VELEZ [facility] 08-06-2022 15:15-0500 Heart rate 72 /min Roland VELEZ [facility] 08-06-2022 15:15-0500 Systolic blood pressure 141 mm[Hg] Roland VELEZ [facility] 06-16-2022 15:31-0400 Body height 165.1 cm Liborio Sarabia MD Work Phone: [facility] 06-16-2022 15:31-0400 Body temperature 97.39 [degF] Liborio Sarabia MD Work Phone: [facility] 06-16-2022 15:31-0400 Body weight 55.97 kg Liborio Sarabia MD Work Phone: [facility] 06-16-2022 15:31-0400 Diastolic blood pressure 67 mm[Hg] Liborio Sarabia MD Work Phone: [facility] 06-16-2022 15:31-0400 Heart rate 82 /min Liborio Sarabia MD Work Phone: [facility] 06-16-2022 15:31-0400 Respiratory rate 16 /min Liborio Sarabia MD Work Phone: [facility] 06-16-2022 15:31-0400 SaO2% (BldA) [Mass fraction] 99 % Liborio Sarabia MD Work Phone: [facility] 06-16-2022 15:31-0400 Systolic blood pressure 147 mm[Hg] Liborio Sarabia MD Work Phone: [facility] 03-12-2022 10:42-0400 Blood Pressure Location Rolandmari VELEZ [facility] 03-12-2022 10:42-0400 Diastolic blood pressure 89 mm[Hg] Roland VELEZ [facility] 03-12-2022 10:42-0400 Heart rate 85 /min Roland VELEZ [facility] 03-12-2022 10:42-0400 Respiratory rate 16 /min Roland VELEZ [facility] 03-12-2022 10:42-0400 Systolic blood pressure 139 mm[Hg] Roland VELEZ [facility] Encounters Encounter Date Encounter Type Care Provider Facility Start: 03-03-2025 ambulatory Roland Dominguezi ty:[facility] Start: 05-20-2024 End: 05-20-2024 Patient encounter procedure [facility] Provider [facility] Department Start: 05-20-2024 End: 05-20-2024 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 Comment on above: DX code for screenin g mammogram needed Start: 04-13-2024 Non-patient / Non-visit DO Loi Buckner Work Phone: [facility] [employer] Work Phone: Start: 04-13-2024 End: 04-13-2024 ambulatory Roland VELEZ Facility:[id number] Start: 04-13-2024 End: 04-13-2024 Departed Referred DO Juma Harsh Work Phone: [facility] Start: 04-04-2024 Non-patient / Non-visit DO Loi Buckner Work Phone: [facility] [employer] Work Phone: Start: 02-29-2024 End: 02-29-2024 ambulatory Roland VELEZ Facility:[facility] [place] Start: 02-29-2024 End: 02-29-2024 Patient encounter procedure Roland VELEZ [facility] Start: 07-17-2023 End: 07-17-2023 ambulatory Juma Harsh Other [facility] [employer] Other Start: 07-17-2023 Telephone encounter Juma Buckner [facility] Start: 07-16-2023 End: 07-16-2023 Patient encounter procedure Liborio Sarabia MD Work Phone: [facility] Start: 07-16-2023 End: 07-16-2023 ambulatory Liborio Sarabia MD Work Phone: Hematology/Oncology Comment on above: Malignant neoplasm o f upper-outer quadrant of right breast in female, estrogen receptor positive (HCC) (Primary Dx); Age-related osteoporosis without current pathological fracture Start: 06-19-2023 End: 06-19-2023 ambulatory Juma Buckner Other [facility] Other Start: 06-19-2023 Encounter for genera l adult medical examination without abnormal findings Juma Buckner [facility] Start: 06-19-2023 Periodic preventive med est patient 40-64yrs Juma Harsh [facility] Start: 04-27-2023 Telephone encounter Dipti Baumann RN Hematology/Oncology Comment on above: Orders Start: 10-28-2022 End: 10-28-2022 ambulatory Karina Carlson Other [facility] Other Start: 10-28-2022 Office outpatient ne w 20 minutes Karina Carlson [facility] Start: 08-06-2022 End: 08-06-2022 Patient encounter procedure Roland VELEZ [facility] [employer] Start: 06-16-2022 End: 06-16-2022 ambulatory Liborio Sarabia [...] encounter procedure Roland VELEZ [facility] [employer] Start: 02-27-2022 End: 02-28-[address] JUMA [...] Adult depression scr eening assessment Ryan Daniels NEWSPAPER MANAGER.SHIRRING TENDER Work Phone: Start: 04-30-2021 Mammography Ryan ledesma NEWSPAPER MANAGER.SHIRRING TENDER Work Phone: Start: 2021 Extracorporeal shock wave lithotripsy of calculus of kidney Roland VELEZ Start: 11-07-2019 Cystoscopy Roland MATHEWS Appendectomy Roland VELEZ Breast structure (cele dy structure) Roland VELEZ Tonsillectomy Roland VELEZ Plan of Treatment Date Care Activity Detail Author Start: 07-14-2024 End: 07-14-2024 Follow-up encounter 07/14/2024 3:45 PM EST Visit (SP) Office Hematology/Oncology [address] [place] [address] Liborio Sarabia MD [address] [place] [address] 1 year follow up Hematology/Oncology Comment on above: 1 year follow up Start: 07-14-2024 End: 07-14-2024 Patient encounter procedure 07/14/2024 3:30 PM EST Office Visit [facility] [address] [place] [address] 1 year follow up [facility] Comment on above: 1 year follow up Start: 06-17-2024 DIABETES SCREEN DIABETES SCREEN [facility] Start: 06-17-2024 Diabetes Screening Diabetes Screenin g [facility] Start: 05-08-2024 Covid-19 Vaccine ( season) Covid-19 Vaccine ( season) [facility] Start: 05-08-2024 Influenza vaccination Influenza Vacc ine (#1) [facility] Start: 05-04-2024 Mammography Mammogram Screening [facility] Start: 05-04-2024 Screening for malign ant neoplasm of breast Mammogram Screening [facility] Start: 04-10-2024 Screening for malign ant neoplasm of colon [facility] Start: 05-08-2023 Influenza vaccination C [facility] Start: 05-02-2023 Mammography MAMMOGRAM [facility] Start: 09-07-2022 DEPRESSION ASSESSMENT DEPRESSION ASS [facility] Start: 06-17-2022 Adult depression screening assessment DEPRESSION SCREENING [facility] Start: 05-08-2022 Influenza vaccination C [facility] Start: 04-30-2022 Mammography MAMMOGRAM [facility] Start: 09-07-2021 DEPRESSION ASSESSMENT DEPRESSION ASS [facility] Start: 2020 RSV Vaccine (1 - 1-d ose 60+ series) RSV Vaccine (1 - 1-dose 60+ series) [facility] Start: 2010 SHINGRIX VACCINE (1 of 2) SHINGRIX VACCINE (1 of 2) [facility] Start: 2005 COLOGUARD (FIT-DNA) COLOGUARD (FIT-D NA) [facility] Start: 2005 Colonoscopy COLONOSCOPY [facility] Start: 2005 COLORECTAL CANCER SCREENING COLORECTAL CANCER SCREENING [facility] Start: [address] COLONOGRAPHY [facility] Start: 2005 FECAL OCCULT BLOOD FECAL OCCULT BLOO D [facility] Start: 2005 Lipid 1996 panel - S gisell or Plasma Lipid Screening [facility] Start: 2005 Lipid panel Lipid Screening [facility] Start: 2005 LIPID SCREEN LIPID SCREEN [facility] Start: 2005 Screening for malign ant neoplasm of colon [facility] Start: 2005 SIGMOIDOSCOPY SIGMOIDOSCOPY [facility] Start: 1990 HPV TESTING HPV TESTING [facility] Start: 1981 PAP TESTING PAP TESTING [facility] Start: 1981 Screening for malign ant neoplasm of cervix Cervical Cancer Screening [facility] Start: 1979 Urine microalbumin profile [facility] Start: 1978 Anxiety Screening Anxiety Screening [facility] Start: 1978 Depression Screening Depression Scre ening [facility] Start: 1978 HEPATITIS C SCREENING HEPATITIS C [facility] Start: 1978 Hepatitis C screening Hepatitis C [facility] Start: 1978 HIV SCREENING HIV SCREENING [facility] Start: 1978 HIV screening HIV Screening [facility] Start: 1966 PNEUMOCOCCAL (1 - PCV) PNEUMOCOCCAL (1 - PCV) [facility] Start: 1965 COVID-19 VACCINE (#1) COVID-19 VACCI NE (#1) [facility] Start: 1960 COVID-19 VACCINE (#1) COVID-19 VACCI NE (#1) [facility] End: 07-16-2023 Diagnostic mammography computer-aided detcj bi MEMO DIAGNOSTIC BILAT Radiology Routine Malignant neoplasm of upper-outer quadrant of right breast in female, estrogen receptor positive (HCC) 1 Occurrences starting 06/16/2022 until 07/16/2023 [facility] [facility] Work Phone: Comment on above: 1 Occurrences starti ng 06/16/2022 until 07/16/2023 End: 08-14-2024 DXA-FOREARM SKELETON DXA-FOREARM SKELETON Radiology Routine Age-related osteoporosis without current pathological fracture Malignant neoplasm of upper-outer quadrant of right breast in female, estrogen receptor positive (HCC) 1 Occurrences starting 07/16/2023 until 08/14/2024 [facility] Work Phone: Comment on above: 1 Occurrences starti ng 07/16/2023 until 08/14/2024 End: 05-26-2024 MEMO SCREENING MEMO SCREENING Radiology Routine Encounter for screening mammogram for malignant neoplasm of breast 1 Occurrences starting 04/27/2023 until 05/26/2024 [facility] Work Phone: Comment on above: 1 Occurrences starti ng 04/27/2023 until 05/26/2024 End: 08-14-2024 MEMO SCREENING W FAISAL MEMO SCREENING W FAISAL Radiology Routine Age-related osteoporosis without current pathological fracture Malignant neoplasm of upper-outer quadrant of right breast in female, estrogen receptor positive (HCC) 1 Occurrences starting 07/16/2023 until 08/14/2024 [facility] Work Phone: Comment on above: 1 Occurrences starti ng 07/16/2023 until 08/14/2024 [facility] Payers Date Payer Category Payer Self-pay [id number] 2016 Unknown [id number] 2012 Unknown MMO MMO [employer] [id number] 2012-Present [phone] [address] [place] [address] PPO [id number] 1960 Unknown [id number] 1960 Unknown [id number] 1960 Unknown [id number] 1960 Unknown [id number] 1960 Unknown [id number] 1960 Unknown [id number] 1960 Unknown [id number] 1959 Unknown [id number] Unknown [id number] Social History Date Type Detail Facility Start: 04-25-2014 End: 02-14-2021 Tobacco smoking status NHIS Never smoked tobacco (finding) [facility] Start: 1960 Sex Assigned At Female [facility] Start: 04-25-2014 Tobacco use and exposure Smokeless tobacco non-user [facility] Start: 06-17-2021 End: 06-16-2022 Alcohol intake Current non-drinker of alcohol (finding) [facility] Start: 1960 Sex Assigned At Not on file [facility] Start: 06-16-2022 End: 07-16-2023 Sex Assigned At Female [facility] Start: 06-06-2022 End: 06-16-2022 Exposure to SARS-CoV-2 (event) Not sure [facility] Tobacco smoking status Never [facility] Start: 06-16-2022 End: 07-16-2023 History of Social function [facility] Functional Status Date Assessment Result Facility 02-29-2024 Functional Status N/A [facility] 08-06-2022 Functional Status N/A [facility] 03-12-2022 Functional Status N/A [facility] Clinical Notes 09-02-2012 to 05-20-2024 Telephone Encounter - Audra Andrews RN - 05/20/2024 10:29 AM EDTTelephone Encounter - Audra Andrews RN - 05/20/2024 10:29 AM EDT Note Date & Type Note Facility 05-20-2024 Telephone encount er Note [facility] called for DX code to be added to screening mammogram order. Z12.31 added and faxed to requested # [phone]. Pt is scheduled next week. Audra Andrews RN [facility] 05-20-2024 Miscellaneous Notes Formattin g of this note might be different from the original. [facility] called for DX code to be added to screening mammogram order. Z12.31 added and faxed to requested # [phone]. Pt is scheduled next week. Audra Andrews RN documented in this encounter [facility] 02-29-2024 Hospital Discharg e instructions Patient Education [...] include: ?8 oz (237 mL) of milk, gocvbiu-kjidjmzwrsol-tugvu milk, and calcium-fortifiedfruit juice. Calcium-fortified means that [...] ?Spinach (cooked), rhubarb, beets, sweet potatoes, and Cambodian chard. ?Peanuts. ?Potato chips, qatari fries, and baked potatoes with skin on. ?Nuts and nut products. ?Chocolate. If you regularly take a diuretic medicine, make sure to eat at least 1 or 2 servings of fruits or vegetables that are high in potassium each day. These include: ?Avocado. ?Banana. ?Hardin, prune, carrot, or tomato juice. ?Baked potato. [...] magnesium, fish oil, or vitamin B6. Take kvob-pub-eqbwrbw and prescription medicines only as told by [...] Casseroles. Pizza. Lasagna. Frozen meals. Potato chips. Samoan fries. The items listed above may not [...] provider. Document Revised: 12/04/2022 Document Reviewed: 12/04/2022 [employer] Patient Education 2022 [employer]. Follow Up Care 08/06/2022 16:16:25 With:PATRICIA STRICKLAND, Roland Barksdale, URL Address: [facility] [address] , [place] [address]- [phone] When: Unknown Comments:1 yr w/ PATRICIA [facility] 07-17-2023 Evaluation note Encounter Date Diagnosis Assessment Notes Jul, Malignant neoplasm of upper-outer quadrant of right female breast (ICD-10 - C50.411) Lumpectomy 2011, adjuvent chemotherapy, adjuvent radiation therapy, completed 9 years hormone therapy Jul, Estrogen receptor positive status [ER+] (ICD-10 - Z17.0) [facility] Other [id number] Nurse Note* Akua Jorge MA - 07/16/2023 3:02 PM EST Patient would like opinion on right hand pinky finger she has a bump her PCP looked at it said it was probably a cyst but she would still like your opinion, it has not changed at all. Akua Jorge MA documented in this encounterUniversity [facility]als [facility]11-09-2023 NoteHNO ID: [id number] Author: Liborio Sarabia MD Service: ? Author [...] Diagnosis Date Breast cancer (HCC) Right; ER+ AL- PAST SURGICAL HISTORY: PAST SURGICAL HISTORY Procedure [...] 197 RADIOLOGY/OTHER STUDIES: 05/04/2023 Bilateral diagnostic mammogram ([employer]) Stable postsurgical change in the right breast. No mammographic evidence of malignancy.. Routine follow-up in 1 year recommended. 05/02/2022 Bone density DEXA ([employer]) Osteoporosis. Max T score -2.6 left femoral neck, left femur, and right femur. ASSESSMENT/PLAN: 1. 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 No mammographic evidence of malignancy.. Routine follow-up in 1 year recommended. 05/02/2022 Bone density DEXA ([employer]) Osteoporosis. Max T score -2.6 left femoral neck, left femur, and right femur. ASSESSMENT/PLAN: 1. 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 Buckner documented in this encounterUniversity [facility]10-13-2023 Evaluation note* Encounter Date Diagnosis [...] to the patient. Recommend referral for excision. [facility] Other 08-21-2023 Miscellaneous Notes* Telephone Encounter - Abiodun James - 04/27/2023 4:23 PM EDT Received order at front desk coordinator. Faxed order April 27, 2023 4:23 PM [...] pended for signature. PSS: Please fax to [phone] Thanks. Dipti Baumann RN documented in this encounterUniversity Hospitals [facility]02-21-2023 Evaluation note* Encounter Date Diagnosis [...] to ER immediately, Conjunctivitis material was printed [facility] Other 11-30-2022 Hospital Discharge instructions Patient Education [...] include: ?Spinach. ?Rhubarb. ?Beets. ?Potato chips and qatari fries. ?Nuts. If you regularly take a diuretic medicine, make sure to eat at least 1 2 fruits or vegetables high in potassium each day. These include: ?Avocado. ?Banana. ?Hardin, prune, carrot, or tomato juice. ?Baked potato. [...] Casseroles. Pizza. Lasagna. Frozen meals. Potato chips. Samoan fries. Summary You can reduce your risk [...] 12/19/2011 Document Revised: 12/14/2019 Document Reviewed: 08/04/2017 [employer] Patient Education 2020 [employer]. Follow Up Care 04/30/2022 15:39:48 With:PATRICIA STRICKLAND, Roland Barksdale, URL Address: [facility] [address], [place] [address]- When: Unknown [facility] 10-10-2022 History of Present illness [...] Diagnosis Date Breast cancer (HCC) Right; ER+ AL- PAST SURGICAL HISTORY: PAST SURGICAL HISTORY Procedure [...] 197 RADIOLOGY/OTHER STUDIES: 05/02/2022 Bone density DEXA ([employer]) Osteoporosis. Max T score -2.6 left femoral neck, left femur, and right femur. And left femur 05/02/2022 Bilateral diagnostic mammogram ([employer]) Stable postsurgical change in the right breast. No mammographic evidence of malignancy or significant change. Routine follow-up in 1 year recommended. ASSESSMENT/PLAN: 1. 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 Buckner documented in this encounterUniversity Hospitals [facility]07-06-2022 Hospital Discharge instructions Patient Education [...] Follow these instructions at home: Medicines Take czzg-hvk-fncdrps and prescription medicines only as told by [...] 08/24/2006 Document Revised: 01/10/2020 Document Reviewed: 01/10/2020 [employer] Patient Education 2020 [employer]. Follow Up Care 02/13/2022 09:45:15 With:PATRICIA STRICKLAND, TIM Herbert Address: [facility] [address] , [place] [address]- When:3 months Comments:w/metabolic workup [facility] [place] 05-23-2022 Miscellaneous Notes* Telephone Encounter - Ryan Daniels APRN.CNP - 01/27/2022 4:44 PM EDT The following approved medication requests have been refused. Refused Prescriptions Disp Refills anastrozole (ARIMIDEX) 1 mg tablet [Pharmacy Med Name: ANASTROZOLE TABS 1MG] 90 tablet 3 Sig: TAKE 1 TABLET DAILY OFELIA: No Refused By: RYAN DANIELS Reason for Refusal: A Refill not appropriate Ryan Daniels APRN.SHIRRING TENDER documented in this encounterUniversity Hospitals Geneva [facility] Center12-27-2012 History of Past illness Narrative* Problem Noted Date Resolved Date Breast CA 09/02/2012 09/16/2018 Overview: Right; ER+ AL-; HER2 - documented as of this encounter (statuses as of 01/28/2022) [facility]12-27-[facility] History of Past illness Narrative* Problem Noted Date Resolved Date Breast CA 09/02/2012 09/16/2018 Overview: Right; ER+ AL-; HER2 - documented as of this encounter (statuses as of 06/17/2022) [facility]12-27-2012 History of Past illness Narrative* Problem Noted Date Diagnosed Date Resolved Date Breast CA 09/02/2012 09/16/2018 Overview: Right; ER+ AL-; HER2 - documented as of this encounter (statuses as of 04/28/2023) [facility]12-[facility] History of Past illness Narrative* Problem Noted Date Diagnosed Date Resolved Date Breast CA 09/02/2012 09/16/2018 Overview: Right; ER+ AL-; HER2 - documented as of this encounter (statuses as of 07/17/2023) [facility] Future Appointments Appointment Date:06/23/2022 03:00:00 PM Scheduled Provider:Roland VELEZ MD Location:[facility] Appointment Type:URO Office Visit [facility] Evaluation + Plan note Future Appointments Appointment Date:08/10/2023 02:45:00 PM Scheduled Provider:Roland VELEZ MD Location:[facility] Appointment Type:URO Office Visit [facility] Evaluation + Plan note Future Appointments Appointment Date:03/03/2025 08:45:00 AM Scheduled Provider:Roland VELEZ MD Location:[facility] Appointment Type:URO Office Visit [facility] evaluation noteNo assessment information available [facility] Diagnosis Malignant neoplasm of upper-outer quadrant of right breast in female, estrogen receptor positive (HCC)- Primary Age-related osteoporosis without current pathological fracture Senile osteoporosis documented in this encounter [facility]* Diagnosis Encounter for screening mammogram for malignant neoplasm of breast- Primary Other screening mammogram documented in this encounter [facility]* Diagnosis Malignant neoplasm of upper-outer quadrant of right breast in female, estrogen receptor positive (HCC)- Primary Age-related osteoporosis without current pathological fracture Senile osteoporosis documented in this encounter [facility] general Narrative - Reported* Type Description Date Medical History Breast cancer Surgical History appendectomy Surgical History tonsillectomy Surgical History lumpectomy, right breast x2 201 2 Hospitalization History see above surgical histo ry [facility] Other History general Narrative - Reported* Type Description Date Medical History Breast cancer Medical History Nephrolithiasis Medical History Osteopenia of lumbar spine Surgical History appendectomy Surgical History tonsillectomy Surgical History lumpectomy, right breast x2 201 2 Hospitalization History see above surgical histo ry [facility] Other Hospital course Narrative No data available for this section [facility] [employer] note No data available for this section [facility] [place] Ryla Reason for referral (narrative)* Diagnostic Procedure Only (Routine) - Pending Review Specialty Diagnoses / Procedures Referred By Contac t Referred To Contact [facility] Diagnoses Malignant neoplasm of upper-outer quadrant of right breast in female, estrogen receptor positive (HCC) Procedures MEMO DIAGNOSTIC BILAT DIAGNOSTIC MAMMOGRAPHY COMPUTER-AIDED DETCJ Liborio Miranda MD [address] [place] [address] [place] [address] [place] [phone] Referral ID Status Reason Start Date Expiration Date Visits Requested Visits Authorized [id number] Pending Review Auto-Generat ed Referral 2 07/16/2023 1 1 [facility] for referral (narrative)* Diagnostic Procedure Only (Routine) - Pending Review Specialty Diagnoses / Procedures Referred By Eliezer augustine Referred To Contact [facility] Diagnoses Encounter for screening mammogram for malignant neoplasm of breast Procedures MEMO SCREENING SCREENING MAMMOGRAPHY BI 2-VIEW BREAST INC Liborio Chau MD [address] [place] [address] [place] [address] [facility] [address] [place] [address] Referral ID Status Reason Start Date Expiration Date Visits Requested Visits Authorized [id number] Pending Review Auto-Generat ed Referral 04/27/2023 05/26/2024 1 1 [facility] for referral (narrative)* Diagnostic Procedure Only (Routine) - Pending Review Specialty Diagnoses / Procedures Referred By Contac t Referred To Contact XR IMAGING Diagnoses Age-related osteoporosis without current pathological fracture Malignant neoplasm of upper-outer quadrant of right breast in female, estrogen receptor positive (HCC) Procedures DXA-FOREARM SKELETON DXA BONE DENSITY STUDY 1/>SITES APPENDICLR Liborio Morales MD [address] [place] [address] [place] [address] [place] [address] Referral ID Status Reason Start Date Expiration Date Visits Requested Visits Authorized [id number] Pending Review Auto-Generat ed Referral 07/16/2023 08/14/2024 [...] BI 2-VIEW BREAST INC Liborio Chau MD [address] [place] [address] [place] [address] [facility] [address] [place] [address] Referral ID Status Reason Start Date Expiration Date Visits Requested Visits Authorized [id number] Pending Review Auto-Generat ed Referral 07/16/2023 08/14/2024 1 1 [facility] Chief Complaint and Reason for [...] or prosecute any alcohol or drug abuse patient.[facility] CenterIn the event this information is protected by the Federal Confidentiality of Alcohol and Drug Abuse Patient Records regulations: The Federal rules restrict any use of the information to criminally investigate or prosecute any alcohol or drug abuse patient.[facility] CenterIn the event this information is protected by the Federal Confidentiality of Alcohol and Drug Abuse Patient Records regulations: The Federal rules restrict any use of the information to criminally investigate or prosecute any alcohol or drug abuse patient.[facility] CenterIn the event this information is protected by the Federal Confidentiality of Alcohol and Drug Abuse Patient Records regulations: The Federal rules restrict any use of the information to criminally investigate or prosecute any alcohol or drug abuse patient.[facility] CenterIn the event this information is protected by the Federal Confidentiality of Alcohol and Drug Abuse Patient Records regulations: The Federal rules restrict any use of the information to criminally investigate or prosecute any alcohol or drug abuse patient.[facility] CenterIn the event this information is protected by the Federal Confidentiality of Alcohol and Drug Abuse Patient Records regulations: The Federal rules restrict any use of the information to criminally investigate or prosecute any alcohol or drug abuse patient.[facility] Reason for Visit (unrecogniz ed section and content) Reason Comments Refill Request Reason Comments Breast Cancer Reason Comments Orders Reason Comments Breast Cancer 1 year follow up Reason Comments DX code for screening mammogram needed Care Teams (unrecognized sec tion and content) Mining Manager Relationship Specialty Start Date End Date Samm Palmer PCP - General Family Practice 01/15/12 Mining Manager Relationship Specialty Start Date End Date Juma Buckner DO [address] [place] [address] PCP - General Internal Medicine 06/16/22 Mining Manager Relationship Specialty Start Date End Date Juma Buckner DO [address] [place] [address] PCP - General Internal Medicine 06/16/22 Mining Manager Relationship Specialty Start Date End Date Juma Buckner DO [address] [place] [address] PCP - General Internal Medicine 06/16/22 Team [...] Attending Provider Active Start: April 13, 2024 Mining Manager Relationship Specialty Start Date End Date Juma Buckner DO [address] [place] [address] PCP - General Internal Medicine 06/16/22 Mining Manager Relationship Specialty Start Date End Date Juma Buckner DO [address] [place] [address] PCP - General Internal Medicine 06/16/22 INFORMATION SOURCE (unrecogn ized section and content) DATE CREATED AUTHOR 04/08/2022 [facility] DATE CREATED AUTHOR AUTHOR'S ORGANIZ ATION 03/05/2024 [facility] DATE CREATED AUTHOR AUTHOR'S ORGANIZ ATION 04/20/2024 [facility] DATE CREATED AUTHOR AUTHOR'S GORGEJENARO ATION 05/22/2024 [facility] FOR RECORDS PERTAINING TO PATIENTS WHO [...] BE BASED ON THE PRIMARY CLINICAL RECORDS. [employer] [facility]. provides no warranty or guarantee of the accuracy or completeness of information in this document.
[2024-05-28 10:13] VITALS: BP 172/90; PULSE 87; TEMP 37.1; O2SAT 99; BMI 21.5
--- NOTE | 2024-05-28 10:14 | CT_ITS ---
[address] [address] Patient Name: ALBERT ABREU MRN: [id number] date: 1960 Sex: F Assigned Patient Location: ER Current Patient Location: .[facility] Accession/Order Number: [id number] Exam Date: 05/28/2024 10:35 Report Date: 05/28/2024 13:02 At the request of: MARCELLA DOWLING Procedure: CT abdomen pelvis wo con EXAM: CT abdomen pelvis wo con HISTORY: Stent placed 2 days ago, abdominal pain. COMPARISON: None. TECHNIQUE: Dose reduction techniques were achieved by using automated exposure control and/or adjustment of mA and/or kV according to patient size and/or use of iterative reconstruction technique. Noncontrast CT of the abdomen/pelvis. FINDINGS: Mild left basilar platelike atelectasis. Right lung base is clear. Heart size is normal. Multiple cysts of the liver. The largest cyst of the right lobe of the liver measures 3.5 cm. Spleen is normal. Right nephroureteral stent in expected position. No left hydronephrosis or hydroureter. Uterus and ovaries are unremarkable by this technique. Pancreas is normal. Gallbladder is normal. Distal esophagus, stomach, and duodenum are normal. Nonobstructive stone of the right kidney inferior pole measuring 6 mm. Punctate nonobstructive stone of the right kidney interpolar region (3/44). Small fat-containing periumbilical hernia. No acute osseous abnormality. Normal alignment of the bilateral hip joints. Moderate disc degeneration at L4-L5 and L5-S1. Moderate facet joint arthropathy at L4-L5. Vertebral body height is preserved. No acute osseous abnormality. CT/CT abdomen pelvis wo con IMPRESSION: 1. Right nephroureteral stent in expected position. No right hydronephrosis. 2. No left hydronephrosis. No left hydroureter. No left nephroureterolithiasis. 3. No bladder stones. 4. No acute osseous abnormality. Electronically authenticated by: CARLOTTA DAVID Date: 05/28/2024 13:02
--- NOTE | 2024-05-28 10:15 | ED_ITS ---
HPI - Abdominal Pain General Chief Complaint: Abdominal Pain Stated Complaint: RIGHT FLANK PAIN, VOMITING, POST OP Time Seen by Provider: 05/28/24 10:09 History of Present Illness HPI narrative: 64-year-old female presents to the emergency department for abdominal pain. She is complaining of pain going in the right lower part of her abdomen to her right lateral side. She had a ureteral stent placed on that side 2 days ago. No gross hematuria or fever or injury. She is not complaining of flank pain. She is taking an antibiotic, Macrobid. Related Data Home Medications ?Medication ?Instructions ?Recorded ?Confirmed calcium 100 mg capsule mg PO 04/04/24 cholecalciferol (vitamin D3) 25 25 mcg PO DAILY 04/04/24 05/26/24 mcg (1,000 unit) capsule potassium citrate 10 mEq (1,080 20 meq PO BID 04/04/24 05/26/24 mg) tablet,extended release Previous Rx's ?Medication ?Instructions ?Recorded nitrofurantoin 100 mg PO DAILY #14 caps 05/26/24 monohydrate/macrocrystals 100 mg capsule (Macrobid) ciprofloxacin HCl 250 mg tablet 250 mg PO BID #14 tabs 05/28/24 (Cipro) Allergies Allergy/AdvReac Type Severity Reaction Status Date / Time cephalexin [From Keflex] Allergy Hives Verified 05/28/24 10:15 Review of Systems ROS Narrative A ten point review of systems is negative except as noted above. [facility] Medical History (Updated 05/28/24 @ 12:00 by Gilbert Collazo MD) Breast cancer ?C50.919 - Malignant neoplasm of unspecified site of unspecified female breast (ICD-10) Menopause ?Z78.0 - Asymptomatic menopausal state (ICD-10) Kidney stones ?N20.0 - Calculus of kidney (ICD-10) S/P extracorporeal shock wave therapy ?Z98.890 - Other specified postprocedural states (ICD-10) Surgical History (Updated 04/14/24 @ 08:57 by Radha Iqbal) History of lithotripsy ?Z98.890 - Other specified postprocedural states (ICD-10) History of tonsillectomy ?Z90.89 - Acquired absence of other organs (ICD-10) History of appendectomy ?Z90.49 - Acquired absence of other specified parts of digestive tract (ICD- 10) History of breast biopsy ?Z98.890 - Other specified postprocedural states (ICD-10) S/P breast lumpectomy ?Z98.890 - Other specified postprocedural states (ICD-10) Family History (Updated 04/04/24 @ 08:27 by Malina Garcia NP) Other Family history of COPD (chronic obstructive pulmonary disease) Family history of aneurysm Family history of heart disease Family history of hypertension Social History (Updated 04/04/24 @ 08:22 by Malina Garcia NP) Within the past year, how often did you have a drink containing alcohol: never Score interpretation: A score less than 3 is consistent with normal alcohol consumption. Smoking status: Never smoker Non-prescribed substance use: denies use Previous occupational history: [employer] Highest level of school completed/degree received: Bachelor's degree Little interest or pleasure in doing things: not at all Feeling down, depressed, or hopeless: not at all Exam Narrative Exam Narrative: Nurses note and vital signs reviewed and patient is not hypoxic. General: The patient appears well and in no apparent distress. Skin: Warm, dry, no pallor noted. There is no rash noted. Head: Normocephalic, atraumatic Eye: Normal conjunctiva, no drainage Ears, Nose, Mouth, and Throat: oral mucosa is moist. Nares patent. Cardiovascular: Regular Rate and Rhythm Respiratory: Patient is in no distress, no accessory muscle use, lungs are clear to auscultation, no wheezing, rales or rhonchi Back: non-tender GI: Soft and nondistended. No apparent tenderness on palpation Musculoskeletal: The patient has no evidence of calf tenderness, no pitting edema, symmetrical pulses noted bilaterally Neurological: A&O, normal speech Psychiatric: Cooperative Constitutional Vital Signs, click to edit/add: Last Vital Signs Temp 98.7 F 05/28/24 10:13 Pulse 87 05/28/24 10:13 Resp 20 05/28/24 10:13 BP 146/76 H 05/28/24 11:07 Pulse Ox 99 05/28/24 10:13 O2 Del Method Room Air 05/28/24 10:13 Course Vital Signs Vital signs: Vital Signs Temperature 98.7 F 05/28/24 10:13 Pulse Rate 87 05/28/24 10:13 Respiratory Rate 05/28/24 10:13 Blood Pressure 172/90 H 05/28/24 10:13 Pulse Oximetry 99 05/28/24 10:13 Oxygen Delivery Method Room Air 05/28/24 10:13 Temperature 98.7 F 05/28/24 10:13 Pulse Rate 87 05/28/24 10:13 Respiratory Rate 05/28/24 10:13 Blood Pressure 146/76 H 05/28/24 11:07 Pulse Oximetry 99 05/28/24 10:13 Oxygen Delivery Method Room Air 05/28/24 10:13 MDM - Abdominal Pain MDM Narrative Medical decision making narrative: CAT scan shows appropriate stent placement and UA shows no evidence of UTI. The patient thinks that her symptoms might be due to the Macrobid that she has been taking because it seems to happen shortly after taking it. We will discontinue the Macrobid and switch to Cipro. She will follow-up with her established urologist. Treatment diagnosis and follow-up were discussed with the patient. Differential Diagnosis Differential diagnosis: Likely abdominal pain, calculus of kidney, constipation and other (UTI) Lab Data Attestation: I reviewed the patient's lab results. Labs: Lab Results 05/28/24 05/28/24 Range/Units 10:15 10:20 WBC 9.4 (4.0-11.0) 10^3/uL RBC 5.22 (4.20-5.40) 10^6/uL Hgb 15.9 (12.0-16.0) g/dL Hct 48.2 H (36.0-48.0) % MCV 92.3 (81.0-99.0) fL MCH 30.5 (26.7-34.0) pg MCHC 33.0 (29.9-35.2) g/dL RDW 11.9 (11.0-15.0) % Plt Count 268 (150-450) 10^3/uL MPV 11.5 (9.5-13.5) fL Neut % (Auto) 79.6 H (43.0-75.0) % Lymph % (Auto) 12.6 L (20.5-60.0) % [place] % (Auto) 7.2 (1.7-12.0) % Eos % (Auto) 0.0 L (0.9-7.0) % Baso % (Auto) 0.4 (0.2-2.0) % Neut # (Auto) 7.5 H (1.4-6.5) 10^3/uL Lymph # (Auto) 1.2 (1.2-3.8) 10^3/uL [place] # (Auto) 0.7 (0.3-0.8) 10^3/uL Eos # (Auto) 0.0 (0.0-0.7) 10^3/uL Baso # (Auto) 0.0 (0.0-0.1) 10^3/uL Abs Immat Gran (auto) 0.02 (0.00-0.03) 10^3/uL Imm/Tot Granulo (auto) 0.2 (0.0-0.5) % Sodium 138 (136-145) mmol/L Potassium 3.4 L (3.5-5.1) mmol/L Chloride 99 (98-107) mmol/L Carbon Dioxide 28.1 (21.0-32.0) mmol/L Anion Gap 14.3 BUN 20.0 H (7.0-18.0) mg/dL Creatinine 1.12 H (0.55-1.02) mg/dL Est GFR ( Amer) 59 L (>=60) Est GFR (Non-Af Amer) 49 L (>=60) BUN/Creatinine Ratio 17.9 Glucose 109 H (74-106) mg/dL Calcium 9.7 (8.5-10.1) mg/dL Urine Color Dk red A (YELLOW) Urine Clarity Clear (CLEAR) Urine pH Color interference A (5.0-9.0) Ur Specific [place] 1.025 (1.005-1.025) Urine Protein Color interference A (NEG/TRACE) mg/dL Urine Glucose (UA) Color interference A (NEGATIVE) mg/dL Urine Ketones Color interference A (NEGATIVE) mg/dL Urine Occult Blood Color interference A (NEGATIVE) Urine Nitrite Color interference A (NEGATIVE) Urine Bilirubin Color interference A (NEGATIVE) Urine Urobilinogen Color interference A (0.2-1.0) EU/dL Ur Leukocyte Esterase Color interference A (NEGATIVE) Urine RBC >100 A (0-2) #/HPF Urine WBC 2-5 A (NONE SEEN) #/HPF Ur Squamous Epith Cells Rare (NONE/RARE) #/LPF Urine Crystals None seen (None Seen) #/HPF Urine Bacteria Small A (NONE SEEN) #/HPF Urine Casts None seen (NONE SEEN) #/LPF Urine Mucus Trace A (NONE SEEN) Ur Culture Indicated? Yes Imaging Data CT scan - abdomen: Radiologist's impression: ITS Impressions Abdomen/Pelvis CT 05/28/24 10:14 IMPRESSION: 1. Right nephroureteral stent in expected position. No right hydronephrosis. 2. No left hydronephrosis. No left hydroureter. No left nephroureterolithiasis. 3. No bladder stones. 4. No acute osseous abnormality. Electronically authenticated by: CARLOTTA DAVID Date: 05/28/2024 11:56 Discharge Plan Discharge Chief Complaint: Abdominal Pain Clinical Impression: Abdominal pain Patient Disposition: Home, Self-Care Time of Disposition Decision: 12:00 Condition: Good Mode of Transportation: Private Vehicle Prescriptions / Home Meds: New ciprofloxacin HCl [Cipro] 250 mg tablet 250 mg PO BID Qty: 14 0RF No Action potassium citrate 10 mEq (1,080 mg) tablet extended release 20 meq PO BID calcium 100 mg capsule PO cholecalciferol (vitamin D3) 25 mcg (1,000 unit) capsule 25 mcg PO DAILY nitrofurantoin monohyd/m-cryst [Macrobid] 100 mg capsule 100 mg PO DAILY Qty: 14 0RF Print Language: Ghanaian Instructions: Abdominal Pain (ED) Additional Instructions: Discontinue the nitrofurantoin and follow-up with Dr. Velez. Referrals: Juma Buckner DO [Primary Care Provider] - 1 week
[2024-05-28] MEDS: ONDANSETRON PF 4 MG/2 ML VIAL IV (10:28)
[2024-05-28] MEDS: MORPHINE SULFATE 4 MG/ML VIAL IV (10:28)
[2024-05-28 10:40] LABS: Basophils Percent Auto 0.4 % (0.2-2.0); Hematocrit 48.2 % (36.0-48.0); Hemoglobin 15.9 g/dL (12.0-16.0); Immature Granulocytes Abs Auto 0.02 10^3/uL (0.00-0.03); Immature Granulocytes Pct Auto 0.2 % (0.0-0.5); Lymphocytes Absolute Auto 1.2 10^3/uL (1.2-3.8); Lymphocytes Percent Auto 12.6 % (20.5-60.0); Mean Corpuscular Hemoglobin 30.5 pg (26.7-34.0); Mean Corpuscular Volume 92.3 fL (81.0-99.0); Mean Platelet Volume 11.5 fL (9.5-13.5); Monocytes Absolute Auto 0.7 10^3/uL (0.3-0.8); Monocytes Percent Auto 7.2 % (1.7-12.0); Neutrophils Absolute Auto 7.5 10^3/uL (1.4-6.5); Neutrophils Percent Auto 79.6 % (43.0-75.0); Platelet Count 268 10^3/uL (150-450); Red Blood Count 5.22 10^6/uL (4.20-5.40); Red Cell Distribution Width 11.9 % (11.0-15.0); White Blood Count 9.4 10^3/uL (4.0-11.0)
[2024-05-28 10:43] LABS: Clarity Urine CLEAR (CLEAR); Specific Gravity Urine 1.025 (1.005-1.025)
[2024-05-28 10:44] LABS: Bilirubin Urine COLOR INTERFERENCE (NEGATIVE); Blood Urine COLOR INTERFERENCE (NEGATIVE); Color Urine DK RED (YELLOW); Glucose Urine UA COLOR INTERFERENCE mg/dL (NEGATIVE); Ketones Urine COLOR INTERFERENCE mg/dL (NEGATIVE); Leukocyte Esterase Urine COLOR INTERFERENCE (NEGATIVE); Nitrite Urine COLOR INTERFERENCE (NEGATIVE); Protein Urine COLOR INTERFERENCE mg/dL (NEG/TRACE); Urobilinogen Urine COLOR INTERFERENCE EU/dL (0.2-1.0); pH Urine COLOR INTERFERENCE (5.0-9.0)
[2024-05-28 10:51] LABS: RBC Urine >100 #/HPF (0-2)
[2024-05-28 10:52] LABS: Bacteria Urine SMALL #/HPF (NONE SEEN); Mucus Urine TRACE (NONE SEEN); Squamous Epithelial Cell Urine RARE #/LPF (NONE/RARE)
[2024-05-28 10:52] LABS: Anion Gap 14.3; BUN Creatinine Ratio 17.9; Calcium 9.7 mg/dL (8.5-10.1); Carbon Dioxide 28.1 mmol/L (21.0-32.0); Chloride 99 mmol/L (98-107); Estimated GFR (African America 59 (>=60); Estimated GFR (Non-African Ame 49 (>=60); Glucose 109 mg/dL (74-106); Potassium 3.4 mmol/L (3.5-5.1); Sodium 138 mmol/L (136-145)
[2024-05-28 10:53] LABS: Cast Seen? NONE SEEN #/LPF (NONE SEEN); Crystals Seen? None Seen #/HPF (None Seen); Urine Culture Indicated YES
[2024-05-28 11:07] VITALS: BP 146/76
--- NOTE | 2024-05-28 11:48 | PC.NURSE ---
pt resting in bed comfortably, at bedside. pt has no pain or nausea. awaiting CT scan results still. denies any needs, call light in reach
== END 2024-05-28 12:14 | disposition home or self-care (01) ==
PROVIDERS: Emergency Provider Emergency Medicine; PCP Internal Medicine
DX: R10.9 Unspecified abdominal pain (principal); Z96.0 Presence of urogenital implants; Z98.890 Other specified postprocedural states
CPT/HCPCS: 36415; 74176; 80048; 81001; 85025; 87086; 96374; 96375; 99285; J2270; J2405

== ENCOUNTER 2024-08-01 07:35 | Outpatient (OUT) | payer OTHER, SELFPAY ==
--- OUTSIDE RECORDS SUMMARY | 2024-07-30 09:39 | XMS_ITS | CCD ---
Author Organization [facility] Care Team Providers Care Printed Circuit Boards Inspector Name Role Phone Adrian Oneal Jr Attending Provider Juma Buckner Primary Care Provider Samm Palmer Primary Care Provider [phone] JUMA BUCKNER Primary Care Physician PATRICIA, DR [...] DO Primary Care Provider Juma Buckner Unavailable DO Juma Buckner Primary Care Provider [phone] DO Juma Buckner Attending Provider [phone] Juma uBckner Attending Unavailable Juma Buckner Primary Care Unavailable Juma Buckner Admitting Unavailable Juma Buckner DO Primary Care Provider RYAN DANIELS Referring Unavailable JUMA BUCKNER Primary Care Unavailable LIBORIO SARABIA Attending Unavailable LIBORIO SARABIA Referring Unavailable Roland VELEZ Attending Unavailable Roland VELEZ Attending Unavailable Roland VELEZ Attending Unavailable Roland VELEZ Referring Unavailable Roland VELEZ Attending Unavailable Roland VELEZ Attending Unavailable DIPTI TOVAR Attending Unavailable JUMA BUCKNER Primary Care Unavailable JUMA BUCKNER Primary Care Unavailable LIBORIO SARABIA Attending Unavailable Allergies Allergy Classification Reported Allergen(s) Allergy Type Date of Onset Reaction(s) Facility Cephalosporins (antibiotic) (1 source) Cephalexin Drug Allergy 1 [facility] (17 sources) Cephalexin; Translations: [cephalexin] Drug Allergy 7 Unknown, Weal (disorder) [facility] (5 sources) Cephalexin; Translations: [Keflex] Drug Allergy [facility] Repository (1 source) Cephalexin Drug Allergy 3 [facility] Repository Medications Current Medications Medication Drug Class(es) Dates Sig (Normalized) Sig (Original) anastrozole 1 mg oral tablet (11 sources) Aromatase Inhibitor Start: 11-07-2019 anastrozole (ARIMIDEX) 1 mg tablet TAKE 1 TABLET DAILY 90 tablet 3 01/30/2021 Active Comment on above: TAKE 1 TABLET DAILY Calcium (7 sources) Phosphate Binder, Calcium Start: 10-27-2019 Calcium Calcium, Oral, Daily Start Date: 10/27/19 Status: Ordered Calcium Active calcium carbonate 1250 mg / cholecalciferol 0.01 mg oral tablet (2 sources) Vitamin D Start: 02-14-2021 Calcium Carbon ate-Vitamin D3 (Calcium 500 + D) 500 mg(1,250mg) -400 unit Tablet Active 2 TAB PO Daily at bedtime February 14, 2021 10:30am Calcium Carbonate / vitamin D3 (9 sources) CALCIUM CARBONAT E/VITAMIN D3 (CALCIUM + [...] February 27, 2021 12:00am Start: 11-07-2019 End: 06-10-2021 take 500 mg by mouth every twelve hours Ciprofloxacin Hcl Discontinued 500 MG PO Q12H November 07, 2019 6:27pm February 14, 2021 10:32am Dexamethasone / Neomycin / Polymyxin B (3 sources) Aminoglycoside Antibacterial, Polymyxin-class Antibacterial, Corticosteroid Start: 10-28-2022 Maxitrol 3.5-05587-3.1 apply directly under left eyelashes Ophthalmic Three [...] potassium bicarbonate 25 meq effervescent oral tablet (9 sources) Start: 03-30-2023 KLOR-CON/EF 25 mEq disintegrating tablet 03/30/2023 Active potassium citrate 10 meq extended release oral tablet (2 sources) Start: 02-29-2024 End: 02-23-2025 potassium CITRATE 10 mEq ER Tab 20 mEq, 2 tab(s), Oral, BID for 30 day(s), 120 tab(s), [facility](s) , [id number], 165, cm, 02/29/24 11:29:00 EDT, Height/Length Dosing, 58.5, kg, 02/29/24 11:29:00 EDT, Weight Dosing Start Date: 02/29/24 Stop Date: 02/23/25 Status: Ordered Vitamin D (3 sources) Start: 08-06-2022 Vitamin D Inte rnational_Unit, [...] BID, # 180 tab(s), Refills(s) 3, Pharmacy: [id number], 165, cm, 08/06/22 15:18:00 EST, Height/Length Dosing, [...] Date Documented Da te Episodic/Chronic Abdominal pain (4 sources) Lower abdominal pain 10-27-2019 Episodic Calculus of urinary tract (20 sources) Kidney stone; Translations: [Calculus of kidney] Onset: 03-12-2022 Episodic Cancer of breast (20 sources) Malignant neoplasm of upper-outer quadrant of female breast; Translations: [Malignant neoplasm of upper-outer quadrant of right female breast] Onset: 09-02-2012 Resolved: 09-16-2018 09-16-2018 Chronic Diseases of white blood cells (1 source) Leukopenia; Translations: [Decreased white blood cell count, unspecified] 04-12-2024 Chronic Genitourinary symptoms and ill-defined conditions (16 sources) Microscopic hematuria; Translations: [Asymptomatic microscopic hematuria] Onset: 04-15-2021 Episodic Inflammation; infection of eye (except that caused by tuberculosis or sexually transmitteddisease) (1 source) Unspecified acute conjunctivitis, left eye Episodic Joint disorders and dislocations; trauma-related (3 sources) Loose body in knee; Translations: [Loose body in knee, unspecified knee] Chronic Menopausal disorders (2 sources) Atrophic vaginitis; Translations: [Postmenopausal atrophic vaginitis] Onset: 06-07-2024 Chronic Osteoporosis (2 sources) Senile osteoporosis; Translations: [Age-related osteoporosis without current pathological fracture] Chronic Other bone disease and musculoskeletal deformities (3 sources) Other specified disorders of bone density and structure, other site; Translations: [Osteopenia of lumbar spine] Episodic Other bone disease and musculoskeletal deformities (1 source) Other specified disorders of bone density and structure, multiple sites; Translations: [Other specified disorders of bone density and structure, multiple sites] Onset: 05-28-2024 Episodic Other circulatory disease (1 source) Elevated blood-pressure reading, without diagnosis of hypertension Episodic Other diseases of bladder and urethra (2 sources) Urethral stricture; Translations: [Unspecified urethral stricture, female] Onset: 06-07-2024 Episodic Other diseases of kidney and ureters (4 sources) Hydronephrosis due to ureteral obstruction 11-03-2019 Episodic Other injuries and conditions due to external causes (1 source) Foreign body in bladder; Translations: [Foreign body in bladder, initial encounter] Onset: 06-07-2024 Episodic Other screening for suspected conditions (not mental disorders or infectious disease) (3 sources) Patient encounter status; Translations: [Encounter for screening mammogram for malignant neoplasm of breast] Onset: 05-28-2024 04-27-2023 Episodic Other skin disorders (1 source) Localized swelling, mass and lump, unspecified Episodic Residual codes; unclassified (2 sources) Estrogen receptor positive status [ER+]; Translations: [Estrogen receptor positive status (ER+)] Onset: 05-28-2024 Episodic Unclassified (4 sources) Asymptomatic microscopic hematuria 12-04-2020 Past or Other Problems Problem Classification Problem Date Documented Da te Episodic/Chronic Cancer of breast (1 source) Personal history of malignant neoplasm of breast; Translations: [PERS HX MALIGNANT NEOPLASM BREAST] Onset: 04-15-2021 Episodic Other bone disease and musculoskeletal deformities (9 sources) Osteopenia; Translations: [Other specified disorders of bone density and structure, unspecified site] Onset: 09-18-2018 09-18-2018 Episodic Results Test Name Value Interpretation Reference Range Facility [facility] 07-15-2024 CNPN Telephone (HEMTSA) ALBERT ROBERTS ([id number]) 1960 F Date Time Provider Department 07/15/[address] [facility] During your visit today, we recorded the following information about you: Olivia Oneal RN 07/15/2024 1:27 PM Signed ----- Message from Liborio Sarabia MD sent at 07/15/2024 11:48 AM EST ----- Please inform the patient that surprisingly her tumor marker jumped slightly. Significance is unclear, and I would suggest that we repeat the lab in 4 weeks to document significance. Findings like this typically are false alarms. However, if the lab increases any further typically we would stage to rule out possible recurrence. Olivia Oneal RN 07/15/2024 1:28 PM Signed Called and left a VM message for patient to call back with results and Dr. Sarabia's recommendations. KALEIGH Michelle Tiffaney RN 07/15/2024 1:50 PM Signed Discussed results with patient. She verbalized understanding. PSS: Please schedule repeat CA27.29 for 08/11/24 at 4pm. Please put in comments patient gets out of school at 330 may be here before 4.(Patient is already aware of this appointment) BRM: Please sign pending lab order. KALEIGH Michelle Brittany 07/15/2024 3:33 PM Signed Patient has been added to schedule w/ notes documented. Ayala James Allergies As of Date: 07/15/2024 Noted Allergy Reaction KEFLEX (CEPHALEXIN) 01/14/2017 16 - Unknown Date Reviewed: 07/14/2024 Reviewed by: Julianne Oneal MA - Fully Assessed Primary Visit Diagnosis:Malignant neoplasm of upper-outer quadrant of right breast in female, estrogen receptor positive (HCC) [C50.411, Z17.0] Order(s):CA 27.29 BLOOD [[id number]] Order #: [id number] FUTURE Prescriptions as of 07/17/2024 - KLOR-CON/EF 25 mEq disintegrating tablet - anastrozole (ARIMIDEX) 1 mg tablet TAKE 1 TABLET DAILY - CALCIUM CARBONATE/VITAMIN D3 (CALCIUM + D ORAL) Take by mouth. Problem List As Of Date 07/15/2024 Noted Resolved Breast CA (HCC) [C50.919] 09/02/2012 09/16/2018 Malignant neoplasm of upper-outer quadrant of r*09/16/2018 Osteopenia [M85.80] 09/18/2018 Encounter Status:Closed by LIBORIO SARABIA on 07/17/24 Normal [facility] CBC W Auto Differential pane l (Bld)on 07-14-2024 Basophils (Bld) [#/Vol] 0.04 10*3/uL [facility] Basophils/100 WBC (Bld) 0.9 % [facility] Differential cell count method Nom (Bld) Auto [facility] Eosinophils (Bld) [#/Vol] 0.13 10*3/uL [facility] Eosinophils/100 WBC (Bld) 2.8 % [facility] Erythrocyte distribution width (RBC) [Ratio] 12.6 % 11.5 - 15.0 % [facility] Hematocrit (Bld) [Volume fraction] 42.0 % 36.0 - 46.0 % [facility] Hemoglobin (Bld) [Mass/Vol] 14.2 g/dL 11.5 - 15.5 g/dL [facility] Immature granulocytes (Bld) [#/Vol] [facility] Immature granulocytes/100 WBC (Bld) 0.2 % [facility] Lymphocytes (Bld) [#/Vol] 1.22 10*3/uL [facility] Lymphocytes/100 WBC (Bld) 26.6 % [facility] MCH (RBC) [Entitic mass] 30.9 pg 26.0 - 34.0 pg [facility] MCHC (RBC) [Mass/Vol] 33.8 g/dL 30.5 - 36.0 g/dL [facility] MCV (RBC) [Entitic vol] 91.5 fL 80.0 - 100.0 fL [facility] Monocytes (Bld) [#/Vol] 0.47 10*3/uL [facility] Monocytes/100 WBC (Bld) 10.3 % [facility] Neutrophils (Bld) [#/Vol] 2.71 10*3/uL [facility] Neutrophils/100 WBC (Bld) 59.2 % [facility] Nucleated RBC (Bld) [#/Vol] [facility] Nucleated RBC/100 WBC (Bld) [Ratio] 0.0 % /100 WBC [facility] Platelet mean volume (Bld) [Entitic vol] 10.6 fL 9.0 - 12.7 fL [facility] Platelets (Bld) [#/Vol] 220 10*3/uL [facility] RBC (Bld) [#/Vol] 4.59 10*6/uL 3.90 - 5.2 0 m/uL [facility] WBC (Bld) [#/Vol] 4.58 10*3/uL [facility] Basophils (Bld) [#/Vol] 0.04 10*3/uL Normal <0.11 [facility] Comment on above: Order Comment: Speci men Type: BLOOD SPECIMEN Ordering Facility: [facility] Address: [address] [place], [place] [address] Performed By: #### 5 7021-8 #### [facility] CLIA [id number] [address] [place] [address]051 Basophils/100 WBC (Bld) 0.9 % Normal [facility] Comment on above: Order Comment: Speci men Type: BLOOD SPECIMEN Ordering Facility: [facility] Address: [address] [place] [address] Performed By: #### 5 7021-8 #### [facility] CLIA [id number] [address] [place] [address]58 Differential cell count method Nom (Bld) Auto Normal [facility] Comment on above: Order Comment: Speci men Type: BLOOD SPECIMEN Ordering Facility: [facility] Address: [address] [place] [address] Performed By: #### 5 7021-8 #### [facility] CLIA [id number] [address] [place] [address] 33209 Eosinophils (Bld) [#/Vol] 0.13 10*3/uL Normal <0.46 [facility] Comment on above: Order Comment: Speci men Type: BLOOD SPECIMEN Ordering Facility: [facility] Address: [address] [place] [address] Performed By: #### 5 7021-8 #### [facility] CLIA [id number] [address] [place] [address] 94669 Eosinophils/100 WBC (Bld) 2.8 % Normal [facility] Comment on above: Order Comment: Speci men Type: BLOOD SPECIMEN Ordering Facility: [facility] Address: [address] [place] [address] Performed By: #### 5 7021-8 #### [facility] CLIA [id number] [address] [place] [address] 40268 Erythrocyte distribution width (RBC) [Ratio] 12.6 % Normal 11.5-15.0 [facility] Comment on above: Order Comment: Speci men Type: BLOOD SPECIMEN Ordering Facility: [facility] Address: [address] [place] [address] Performed By: #### 5 7021-8 #### [facility] CLIA [id number] [address] [place] [address] Hematocrit (Bld) [Volume fraction] 42.0 % Normal 36.0-46.0 [facility] Comment on above: Order Comment: Speci men Type: BLOOD SPECIMEN Ordering Facility: [facility] Address: [address] [place] [address] Performed By: #### 5 7021-8 #### [facility] CLIA [id number] [address] [place] [address] Hemoglobin (Bld) [Mass/Vol] 14.2 g/dL Normal 11.5-15.5 [facility] Comment on above: Order Comment: Speci men Type: BLOOD SPECIMEN Ordering Facility: [facility] Address: [address] [place] [address] Performed By: #### 5 7021-8 #### [facility] CLIA [id number] [address] [place] [address]8943 Immature granulocytes (Bld) [#/Vol] 10*3/uL Normal <0.10 [facility] Comment on above: Order Comment: Speci men Type: BLOOD SPECIMEN Ordering Facility: [facility] Address: [address] [place] [address] Performed By: #### 5 7021-8 #### [facility] CLIA [id number] [address] [place] [address] 23662 Immature granulocytes/100 WBC (Bld) 0.2 % Normal [facility] Comment on above: Order Comment: Speci men Type: BLOOD SPECIMEN Ordering Facility: [facility] Address: [address] [place] [address] Performed By: #### 5 7021-8 #### [facility] CLIA [id number] [address] [place] [address] 66253 Lymphocytes (Bld) [#/Vol] 1.22 10*3/uL Normal 1.00-4.00 [facility] Comment on above: Order Comment: Speci men Type: BLOOD SPECIMEN Ordering Facility: [facility] Address: [address] [place] [address] Performed By: #### 5 7021-8 #### [facility] CLIA [id number] [address] [place] [address] 74245 Lymphocytes/100 WBC (Bld) 26.6 % Normal [facility] Comment on above: Order Comment: Speci men Type: BLOOD SPECIMEN Ordering Facility: [facility] Address: [address] [place] [address] Performed By: #### 5 7021-8 #### [facility] CLIA [id number] [address] [place] [address] 79573 MCH (RBC) [Entitic mass] 30.9 pg Normal 26.0-34.0 [facility] Comment on above: Order Comment: Speci men Type: BLOOD SPECIMEN Ordering Facility: [facility] Address: [address] [place] [address] Performed By: #### 5 7021-8 #### [facility] CLIA [id number] [address] [place] [address] 35932 MCHC (RBC) [Mass/Vol] 33.8 g/dL Normal 30.5-36.0 [facility] Comment on above: Order Comment: Speci men Type: BLOOD SPECIMEN Ordering Facility: [facility] Address: [address] [place] [address] Performed By: #### 5 7021-8 #### [facility] CLIA [id number] [address] [place] [address] 90173 MCV (RBC) [Entitic vol] 91.5 fL Normal 80.0-100.0 [facility] Comment on above: Order Comment: Speci men Type: BLOOD SPECIMEN Ordering Facility: [facility] Address: [address] [place] [address] Performed By: #### 5 7021-8 #### [facility] CLIA [id number] [address] [place] [address] 88957 Monocytes (Bld) [#/Vol] 0.47 10*3/uL Normal <0.87 [facility] Comment on above: Order Comment: Speci men Type: BLOOD SPECIMEN Ordering Facility: [facility] Address: [address] [place] [id number] Performed By: #### 5 7021-8 #### [facility] CLIA [id number] [address] [place] [address] 59984 Monocytes/100 WBC (Bld) 10.3 % Normal [facility] Comment on above: Order Comment: Speci men Type: BLOOD SPECIMEN Ordering Facility: [facility] Address: [address] [place] [address] Performed By: #### 5 7021-8 #### [facility] CLIA [id number] [address] [place] [address] 74450 Neutrophils (Bld) [#/Vol] 2.71 10*3/uL Normal 1.45-7.50 [facility] Comment on above: Order Comment: Speci men Type: BLOOD SPECIMEN Ordering Facility: [facility] Address: [address] [place] [address] Performed By: #### 5 7021-8 #### [facility] CLIA [id number] [address] [place] [address] 83843 Neutrophils/100 WBC (Bld) 59.2 % Normal [facility] Comment on above: Order Comment: Speci men Type: BLOOD SPECIMEN Ordering Facility: [facility] Address: [address] [place] [address] Performed By: #### 5 7021-8 #### [facility] CLIA [id number] [address] [place] [address] 82015 Nucleated RBC (Bld) [#/Vol] 10*3/uL Normal <0.01 [facility] Comment on above: Order Comment: Speci men Type: BLOOD SPECIMEN Ordering Facility: [facility] Address: [address] [place] [address] Performed By: #### 5 7021-8 #### [facility] CLIA [id number] [address] [place] [address] Nucleated RBC/100 WBC (Bld) [Ratio] 0.0 /100 WBC Normal [facility] Comment on above: Order Comment: Speci men Type: BLOOD SPECIMEN Ordering Facility: [facility] Address: [address] [place] [address] Performed By: #### 5 7021-8 #### [facility] CLIA [id number] [address] [place] [address] Platelet mean volume (Bld) [Entitic vol] 10.6 fL Normal 9.0-12.7 [facility] Comment on above: Order Comment: Speci men Type: BLOOD SPECIMEN Ordering Facility: [facility] Address: [address] [place] [address] Performed By: #### 5 7021-8 #### [facility] CLIA [id number] [address] [place] [address] 49298 Platelets (Bld) [#/Vol] 220 10*3/uL Normal 150-400 [facility] Comment on above: Order Comment: Speci men Type: BLOOD SPECIMEN Ordering Facility: [facility] Address: [address] [place] [address] Performed By: #### 5 7021-8 #### [facility] CLIA [id number] [address] [place] [address] RBC (Bld) [#/Vol] 4.59 10*6/uL Normal 3.90-5.20 [facility] Comment on above: Order Comment: Speci men Type: BLOOD SPECIMEN Ordering Facility: [facility] Address: [address] [place] [address] Performed By: #### 5 7021-8 #### [facility] CLIA [id number] [address] [place] [address] WBC (Bld) [#/Vol] 4.58 10*3/uL Normal 3.70-11.00 [facility] Comment on above: Order Comment: Speci men Type: BLOOD SPECIMEN Ordering Facility: [facility] Address: [facility], [place] [address] Performed By: #### 5 7021-8 #### [facility] CLIA [id number] [address] [place] [address]70 CNOVSPon 07-14-2024 CNOVSP Visit (SP) Office ([place]) LOISALBERT MORENO ([id number]) 1960 F Date Time Provider Department 07/14/24 3:40 PM LIBORIO SARABIA During your visit today, we recorded the following information about you: Temperature Pulse Respiration Blood pressure 96.8 degrees 66/minute 16/minute 151/87 Weight Height 58.9 kg 1.651 m Liborio Sarabia MD 07/14/2024 9:26 PM Signed PATIENT NAME: Albert Roberts DATE: 07/14/2024 PRIMARY CARE PHYSICIAN: Dr. Loi Buckner OTHER PHYSICIANS: Dr. Harrison, Dr. White, Dr. Velez Portions of this encounter note have been copied from my note from 07/16/2023 and has been updated where appropriate, and reflect my current medical decision making from today. CC: This is a 64 year old female with a history of breast cancer, seen for scheduled follow-up (prior patient of Dr. Birmingham). INTERIM HISTORY: Since the patient's last visit here she apparently developed kidney stones. Currently asymptomatic with appropriate treatment. Otherwise she has had no significant medical changes. She has noticed no change in her breasts. No unusual pain or other systemic symptoms. MEDICATIONS: KLOR-CON/EF 25 mEq disintegrating tablet CALCIUM CARBONATE/VITAMIN D3 (CALCIUM + D ORAL) Take by mouth. anastrozole (ARIMIDEX) 1 mg tablet TAKE 1 TABLET DAILY (Patient not taking: Reported on 07/14/2024) ALLERGIES: Keflex [Cephalexin] PAST MEDICAL HISTORY: PAST MEDICAL HISTORY Diagnosis Date Breast cancer (HCC) Right; ER+ NV- PAST SURGICAL HISTORY: PAST SURGICAL HISTORY Procedure Laterality Date APPENDECTOMY BREAST BIOPSY LUMPECTOMY/RADIOTHERAP Y DIAG MAMM/A10 TONSILLECTOMY HX REVIEW OF SYSTEMS: [...] seizures or tremors. PHYSICAL EXAM: Vitals: BP 151/87 Pulse 66 Temp 36 ?C (96.8 ?F) (Temporal) Resp 16 Ht 165.1 cm (5' 5 ) Wt 58.9 kg (129 lb 13.6 oz) SpO2 100% BMI 21.61 kg/m? Exam limited to gross visualization where [...] findings LABORATORY DATA: Hemoglobin (g/dL) Date Value 07/14/2024 14.2 06/17/2021 13.0 Hematocrit (%) Date Value 07/14/2024 42.0 06/17/2021 39.1 WBC (k/uL) Date Value 07/14/2024 4.58 06/17/2021 5.28 Platelet Count (k/uL) Date Value 07/14/2024 220 06/17/2021 197 RADIOLOGY/OTHER STUDIES: 05/28/2024 Bilateral screening mammogram ([facility]) No mammographic evidence of malignancy.. Routine follow-up in 1 year recommended. 05/28/2024 Bone density DEXA ([facility]) Osteopenia. Max T score -2.4 left femoral neck, left femur, and right femur. ASSESSMENT/PLAN: 1. 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 Status post lumpectomy and sentinel node procedure 01/06/2012. Final pathology: primary tumor 1 cm, 1 of 2 sentinel nodes involved with micrometastases. Postop the patient received adjuvant chemotherapy with docetaxel plus cyclophosphamide ?4 cycles February 2012 through April 2012. She subsequently received adjuvant radiation therapy. Status post adjuvant hormonal therapy with Anastrozole x 9 years May 2012 through June 2021. Currently no evidence disease. At this time would recommend continued routine surveillance. Now that she is more than 12 years out from diagnosis she will follow-up with her PCP for further management. We did not (more content not included)... Normal [facility] Cancer Ag27-29 SerPl-aCncon 07-14-2024 Cancer Ag 27-29 Qn 48.5 [arb'U]/mL High <38.6 [facility] on above: Order Comment: Speci men Type: BLOOD SPECIMEN Ordering Facility: [facility] Address: [address] [place] [address] Result Comment: The CA27.29 test was performed using the Siemens [employer] XP chemiluminometric immunoassay method. Results obtained with different assay methods or kits cannot be used interchangeably. Performed By: #### 1 7842-6 #### [facility] CLIA [id number] [address] [place] [address] [place] [address] [place] Comprehensive metabolic 2000 panelOrdered By: Lisa Mayes on 07-14-2024 Albumin [Mass/Vol] 4.6 g/dL 3.9 - 4.9 g/dL [place] [facility] ALP [Catalytic activity/Vol] 87 U/L 34 - 123 U/L [facility] ALT [Catalytic activity/Vol] 14 U/L 7 - 38 U/L [facility] Anion gap [Moles/Vol] 11 mmol/L 8 - 15 mmol/L [facility] AST [Catalytic activity/Vol] 23 U/L 13 - 35 U/L [facility] Bilirubin [Mass/Vol] 0.4 mg/dL 0.2 - 1 .3 mg/dL [facility] Calcium [Mass/Vol] 9.7 mg/dL 8.5 - 10. 2 mg/dL [facility] Chloride [Moles/Vol] 102 mmol/L 98 - 10 7 mmol/L [facility] CO2 [Moles/Vol] 27 mmol/L 22 - 30 mmol/L [facility] Creatinine [Mass/Vol] 0.95 mg/dL 0.58 - 0.96 mg/dL [facility] GFR/1.73 sq M.predicted among non-blacks MDRD (S/P/Bld) [Vol rate/Area] 67 mL/min/{1.73_m2} - PINF [facility] Comment on above: Estimated Glomerular Filtration Rate (eGFR) is calculated using the 2020 CKD-EPI creatinine equation. This equation utilizes serum creatinine, sex, and age as parameters. The creatinine assay has traceable calibration to isotope dilution-mass spectrometry. Refer to KDIGO guidelines for clinical interpretation. In patients with unstable renal function, e.g. those with acute kidney injury, the eGFR may not accurately reflect actual GFR. Glucose [Mass/Vol] 97 mg/dL 74 - 99 mg/dL [facility] Comment on above: The [place] Diabete [place] Association (ADA) provides guidance for cutoff values for fasting glucose and random glucose. The ADA defines fasting as no caloric intake for at least 8 hours. Fasting plasma glucose results between 100 to 125 mg/dL indicate increased risk for diabetes (prediabetes). Fasting plasma glucose results greater than or equal to 126 mg/dL meet the criteria for diagnosis of diabetes. In the absence of unequivocal hyperglycemia, results should be confirmed by repeat testing. In a patient with classic symptoms of hyperglycemia or hyperglycemic crisis, random plasma glucose results greater than or equal to 200 mg/dL meet the criteria for diagnosis of diabetes. Reference: Standards of Medical Care in Diabetes 2016, [place] Diabetes Association. Diabetes Care. 2016.39(Suppl 1). Interpretation and review of laboratory results Normal [facility] Potassium [Moles/Vol] 4.2 mmol/L 3.7 - 5.1 mmol/L [facility] Protein [Mass/Vol] 6.6 g/dL 6.3 - 8.0 g/dL [facility] Sodium [Moles/Vol] 140 mmol/L 136 - 144 mmol/L [facility] Urea nitrogen [Mass/Vol] 20 mg/dL 7 - 21 mg/dL [facility] Comprehensive metabolic 2000 panelon 07-14-2024 Albumin [Mass/Vol] 4.6 g/dL Normal 3.9-4.9 [facility] Comment on above: Order Comment: Speci men Type: BLOOD SPECIMEN Ordering Facility: [facility] Address: [address] [place] [address] Performed By: #### 2 4323-8 #### [facility] CLIA [id number] [address] [place] [address] ALP [Catalytic activity/Vol] 87 U/L Normal 34-123 [facility] Comment on above: Order Comment: Speci men Type: BLOOD SPECIMEN Ordering Facility: [facility] Address: [address] [place] [address] Performed By: #### 2 4323-8 #### [facility] CLIA [id number] [address] [place] [address] ALT [Catalytic activity/Vol] 14 U/L Normal 7-38 [facility] Comment on above: Order Comment: Speci men Type: BLOOD SPECIMEN Ordering Facility: [facility] Address: [address] [place] [address] Performed By: #### 2 4323-8 #### [facility] CLIA [id number] [address] [place] [address] Anion gap [Moles/Vol] 11 mmol/L Normal 8-15 [facility] Comment on above: Order Comment: Speci men Type: BLOOD SPECIMEN Ordering Facility: [facility] Address: [address] [place] [address] Performed By: #### 2 4323-8 #### [facility] CLIA [id number] [address] [place] [address] AST [Catalytic activity/Vol] 23 U/L Normal 13-35 [facility] Comment on above: Order Comment: Speci men Type: BLOOD SPECIMEN Ordering Facility: [facility] Address: [address] [place] [id number] Performed By: #### 2 4323-8 #### [facility] CLIA [id number] [address] [place] [address] Bilirubin [Mass/Vol] 0.4 mg/dL Normal 0.2-1.3 [facility] Comment on above: Order Comment: Speci men Type: BLOOD SPECIMEN Ordering Facility: [facility] Address: [address] [place] [address] Performed By: #### 2 4323-8 #### [facility] CLIA [id number] [address] [place] [address] Calcium [Mass/Vol] 9.7 mg/dL Normal 8.5-10.2 [facility] Comment on above: Order Comment: Speci men Type: BLOOD SPECIMEN Ordering Facility: [facility] Address: [address] [place] [address] Performed By: #### 2 4323-8 #### [facility] CLIA [id number] [address] [place] [address] Chloride [Moles/Vol] 102 mmol/L Normal 98-107 [facility] Comment on above: Order Comment: Speci men Type: BLOOD SPECIMEN Ordering Facility: [facility] Address: [address] [place] [id number] Performed By: #### 2 4323-8 #### [facility] CLIA [id number] [address] [place] [address] CO2 [Moles/Vol] 27 mmol/L Normal 22-30 [facility] Comment on above: Order Comment: Speci men Type: BLOOD SPECIMEN Ordering Facility: [facility] Address: [address] [place] [address] Performed By: #### 2 4323-8 #### [facility] CLIA [id number] [address] [place] [address] Creatinine [Mass/Vol] 0.95 mg/dL Normal 0.58-0.96 [facility] Comment on above: Order Comment: Speci men Type: BLOOD SPECIMEN Ordering Facility: [facility] Address: [address] [place] [address] Performed By: #### 2 4323-8 #### [facility] CLIA [id number] [address] [place] [address] Creatinine and Glomerular filtration rate.predicted panel (S/P/Bld) 67 mL/min/1.73m??? Normal >=60 [facility] Comment on above: Order Comment: Igori men Type: BLOOD SPECIMEN Ordering Facility: [facility] Address: [address] [place] [address] Result Comment: Judy mated Glomerular Filtration Rate (eGFR) is calculated using the 2020 CKD-EPI creatinine equation. This equation utilizes serum creatinine, sex, and age as parameters. The creatinine assay has traceable calibration to isotope dilution-mass spectrometry. Refer to KDIGO guidelines for clinical interpretation. In patients with unstable renal function, e.g. those with acute kidney injury, the eGFR may not accurately reflect actual GFR. Performed By: #### 2 4323-8 #### [facility] CLIA [id number] [address] [place] [address] Glucose [Mass/Vol] 97 mg/dL Normal 74-99 [facility] Comment on above: Order Comment: Igori men Type: BLOOD SPECIMEN Ordering Facility: [facility] Address: [address] [id number] Result Comment: The [place] Diabetes Association (ADA) provides guidance for cutoff values for fasting glucose and random glucose. The ADA defines fasting as no caloric intake for at least 8 hours. Fasting plasma glucose results between 100 to 125 mg/dL indicate increased risk for diabetes (prediabetes). Fasting plasma glucose results greater than or equal to 126 mg/dL meet the criteria for diagnosis of diabetes. In the absence of unequivocal hyperglycemia, results should be confirmed by repeat testing. In a patient with classic symptoms of hyperglycemia or hyperglycemic crisis, random plasma glucose results greater than or equal to 200 mg/dL meet the criteria for diagnosis of diabetes. Reference: Standards of Medical Care in Diabetes 2016, [place] Diabetes Association. Diabetes Care. 2016.39(Suppl 1). Performed By: #### 2 4323-8 #### [facility] CLIA [id number] [address] [place] [address] Potassium [Moles/Vol] 4.2 mmol/L Normal 3.7-5.1 [facility] Comment on above: Order Comment: Speci men Type: BLOOD SPECIMEN Ordering Facility: [facility] Address: [address] [place] [address] Performed By: #### 2 4323-8 #### [facility] CLIA [id number] [address] [place] [address] Protein [Mass/Vol] 6.6 g/dL Normal 6.3-8.0 [facility] Comment on above: Order Comment: Speci men Type: BLOOD SPECIMEN Ordering Facility: [facility] Address: [address] [place], [place] [address] Performed By: #### 2 4323-8 #### [facility] CLIA [id number] [address] [place] [address] Sodium [Moles/Vol] 140 mmol/L Normal 136-144 [facility] Comment on above: Order Comment: Speci men Type: BLOOD SPECIMEN Ordering Facility: [facility] Address: [address] [place] [address] Performed By: #### 2 4323-8 #### [facility] CLIA [id number] [address] [place] [address] Urea nitrogen [Mass/Vol] 20 mg/dL Normal 7-21 [facility] Comment on above: Order Comment: Speci men Type: BLOOD SPECIMEN Ordering Facility: [facility] Address: [address] [place] [address] Performed By: #### 2 4323-8 #### [facility] CLIA [id number] [address] [place] [address] Ambulatory Visit Summaryon 1 Ambulatory Visit Summary Ambulatory Visit Summary ALBERT ROBERTS :1960 Visit Date:06/07/2024 Ambulatory Visit Instructions Your Diagnosis Foreign body in bladder Kidney stones Unspecified urethral stricture, female Vaginal atrophy Tests Performed XR Abdomen 1 View -- [...] concerns Non-Formulary Medication (Calcium) ergocalciferol (Vitamin D) Procedures Performed Cystoscopic removal of ureteric stent (06/07/2024), ESWL of kidney (2021), Cystoscopy (11/07/2019), Appendectomy, Breast, Tonsillectomy. Discharge Vitals Heart Rate (Peripheral) 96 Respiratory Rate 16 Blood Pressure 128/84 Weight 58.5 kg Weight 128.7 lb What to do next Scheduled Follow-Up Appointments Thursday 9:00 AM EST With: DIPTI TOVAR PA-C Where: [facility] [address] [id number]- Thursday 8:45 AM EDT With: Roland VELEZ MD Where: [facility] [address] [address]- You Need to Schedule the Following Appointments Follow Up with Roland VELEZ MD, URL When: Where: [facility] [address] [place] [phone] Medications What How Much When Instructions Unchanged potassium citrate (potassium CITRATE 10 mEq ER Tab) 2 Tablets By Mouth 2 times a day Duration: 30 Days Unchanged ergocalciferol (Vitamin D) By Mouth Every week Contact prescribing physician if questions or concerns Unchanged Non-Formulary Medication (Calcium) By Mouth Every day Contact prescribing physician if questions or concerns Medications and Immunizations Administered Given lidocaine Top 2% Gel w/Appl 6 mL, 6 mL, Topical. For: Foreign body in bladder Allergies Keflex (Hives) Problems Ongoing - Any problem that you are currently receiving treatment for. Asymptomatic microscopic hematuria Breast cancer Dysuria Gross hematuria Hydronephrosis with urinary obstruction due to ureteral calculus Kidney stones Lower abdominal pain Microscopic hematuria Unspecified urethral stricture, female Ureteral stone Vaginal atrophy Patient Survey You may receive a survey via text or e-mail asking about your office visit. Please share your experience with us by completing your survey. We appreciate your feedback and thank you for choosing us for your care. Education Materials 24-Hour Urine Collection Why am I having this test? A 24-hour urine specimen is a lab test that requires you to collect all of your urine for an entire day. This is sometimes called a timed urine test. It can provide more information than a single urine sample. There are many reasons to have this test. Your health care provider may order the test to check for or monitor the following conditions: ? High blood pressure. ? Kidney disease. ? Kidney stones. ? Urinary tract infections. ? . ? Diabetes. How do I prepare for this test? ? You may be asked to follow a special diet during or before the collection period. Follow any instructions from your health care provider. If no special instructions are given, you may eat and drink normally. ? Take hhbv-jqm-nsomcpw and prescription medicines only as told by your health care provider. ? Let your health care provider know about any medicines that you are taking, including tzgp-zwo-dzivvgt medicines, vitamins, herbs, and supplements. ? Choose a collection day when you can be at home or when you have a place to store the urine. All urine must be collected during the testing period. How do I do a 24-hour urine collection? ? When you get up in the morning, urinate in the toilet and flush. Write down the time. This will be your start time on the day of collection and your end time on the next morning. ? From the start time on, all of your urine should be kept in the collection jug that you received from the lab. ? If the jug that is given to you already has liquid in it, that is okay. Do not throw out the liquid or rinse out the jug. ? Urinate into a specimen container, such as a urinal or field that sits over the toilet. Pour the urine from the container into the collection jug. Be careful not to spill any of the urine. Use the equipment provided by the lab. ? Do not let any toilet paper or stool (feces) get into the jug. This will contaminate the sample. ? Stop collecting your urine 24 hours after you started. Collect the last specimen as close as possible to the end o (more content not included)... Normal [facility] Urology Office/Clinic Noteon 06-07-2024 Urology Office/Clinic Note Urology Office/Clinic Note Chief Complaint Cysto, right stent removal HPI Staff Cysto Rt stent removal ABX TAKEN History of Present Illness Tests reviewed: reviewed KUB, operative reports I have reviewed the previous health record [...] See HPI. Physical Exam Vitals & Measurements HR: 96(Peripheral) RR: 16 BP: 128/84 WT: 58.5 kg WT: 128.7 lb General Appearance: alert , no acute distress, well nourished, well developed female. Procedure Operative Information Anesthesia Type: Local Procedure: Local Cystoscopy with Stent Removal Complications: None Surgical risks, benefits, details of the procedure have been explained to the patient. Full informed consent has been obtained. Intraoperative Information Prepped: Patient is placed in modified dorso/lithotomy position. The patient was prepped with the Betadine solution. Anesthesia: 2% Xylocaine Jelly per urethra. Procedure: Cystoscopy and right stent removal. The flexible Cystoscope was passed in retrograde fashion into the bladder without difficulty. The bladder was viewed in entirety and found to be without tumors or stones. Mild inflammation was seen surrounding the orifice with the stent seen protruding from it. The stent was then grasped and removed in its entirety. Specimens Removed: None Postoperative Information The patient tolerated the procedure well and was subsequently discharged home. Assessment/Plan 1. Foreign body in bladder (T19.1XXA: Foreign body in bladder, initial encounter) S/p Cysto/UD, R URS, R pyeloscopy, R stent placement 05/26/24. Pt had IO cysto/R stent removal without complications today. Prophy abx taken prior. -See #2 2. Kidney stones (N20.0: Calculus of kidney) S/P L ESWL 04/11/21. KUB 02/28/22 - A small stone projecting over inferior pole of the right kidney, not measured. Met workup 04/01/22: Volume - 2024, slightly low. Citric acid - 265, low. Oxalates - 28. Calcium normal. KUB 02/24/24 [facility] - 5 mm R renal stone. [1] S/p R ESWL 04/14/24 (6-7mm nonobstructing R renal calculus). KUB 04/22/24 [facility] - Stable 6mm (vs 6cm on report) stone projecting over R kidney. S/p Cysto/UD, R URS, R pyeloscopy, R stent placement 05/26/24 - Severe urethral stenosis, 5-6mm RLP renal calculus embedded and not accessible. Switched from Effer-K to potassium citrate 10mEq bid at prior OV (felt bloated when she took Effer-K bid). Discussed repeating metabolic workup to evaluate efficacy of medical management for stone prevention. Pt willing to proceed. -Increase water intake -Cont potassium citrate -F/u in 4 mos w/ KUB and metabolic workup. 3. Unspecified urethral stricture, female (N35.92: Unspecified urethral stricture, female) S/p Cysto/UD, R URS, R pyeloscopy, R stent placement 05/26/24 - Severe urethral stenosis, dilated to 32Fr. 4. Vaginal atrophy (N95.2: Postmenopausal atrophic vaginitis) Noted at time of Cysto/UD, R URS, R pyeloscopy, R stent placement 05/26/24. Follow-up With When Contact Information Roland VELEZ MD, URL [facility] [address], [place] [address]- [phone] Additional Instructions: 4 mos w/ KUB and metabolic workup Patient Education 24-Hour Urine Collection Kidney Stones, Cdxz-xh-Xfek I, Nella Carrillo, personally scribed for Dr. Velez on 06/07/2024 15:59:39. . Documentation recorded by the scribeNella, accurately reflects the services(s) I performed and decisions made by me. Authenticated by Dr. Velez on 06/07/2024 16:02:14. Problem List/Past Medical History Ongoing Asymptomatic microscopic hematuria Breast cancer Dysuria Gross hematuria Hydronephrosis with urinary obstruction due to ureteral calculus Kidney stones Lower abdominal pain Microscopic hematuria Unspecified urethral stricture, female Ureteral stone Vaginal atrophy Historical No qualifying data Procedure/Surgical History Cystoscopic removal of ureteric stent (06/07/2024), ESWL of kidney (2021), Cystoscopy (11/07/2019), Appendectomy, Breast, Tonsillectomy. Medications Calcium, Oral, Daily potassium CITRATE 10 mEq ER Tab, 20 mEq= 2 tab(s), Oral, BID, 11 refills Vitamin D, Oral, qWeek Allergies Keflex (Hives) Social History Alcohol - De (more content not included)... 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 Computer aided detection was utilized. FINDINGS: The breasts are heterogeneously dense, which may obscure small masses. Stable post therapeutic changes right breast. Negative for malignancy. IMPRESSION: No mammographic evidence of malignancy. BI-RADS: BI-RADS 2 - Benign Recommendation: Routine screening mammogram in 1 year. Finalized by All Li MD on 05/30/2024 10:35 AM 2 c MAMM 1 YR Normal [facility] DEXA SCAN CENTRAL SKELETALon 05-29-2024 DEXA SCAN CENTRAL SKELETAL DEXA SCAN CENTRAL SKELETAL CLINICAL INFORMATION: Osteopenia of multiple sites. , Post menopausal, TECHNIQUE: Dual X-ray Absorptiometry (DXA) was performed. COMPARISON: 05/02/2022 FINDINGS: LUMBAR SPINE (L1-L4): BMD is 1 gm/cm2. T-score is -1.4. LEFT FEMORAL NECK: BMD is 0.74 gm/cm2. T-score is -2.2. LEFT TOTAL FEMUR: BMD is 0.71 gm/cm2. T-score is -2.4. RIGHT FEMORAL NECK: BMD is 0.76 gm/cm2. T-score is -2. RIGHT TOTAL FEMUR: BMD is 0.7 gm/cm2. T-score is -2.4. The estimated 10-year probability for a major osteoporotic fracture (utilizing FRAX) is 10.3% and for a hip fracture is 1.8%. IMPRESSION: The exam is considered to be osteopenic by the National Osteoporosis Foundation guidelines. Recommend consideration for initiation of therapy. WHO CLASSIFICATION: Normal: T-score -1.0 or above Osteopenia: T-score -1.1 to < 2.5 Osteoporosis: T-score -2.5 or lower Secondary causes of bone loss should be evaluated if clinically indicated since the etiology of low BMD cannot be determined by BMD measurement alone. The current National Osteoporosis Foundation guide recommends treating patients with FRAX ten year risk scores of greater than or equal to 3% for hip fracture or greater than or equal to 20% for major osteoporotic fracture, to reduce their fracture risk. Finalized by Prasanna Arellano MD on 05/29/2024 3:48 PM Normal [facility] CNPNon 05-20-2024 CNPN Telephone (HEMASA) ALBERT ROBERTS ([id number]) 1960 F Date Time Provider Department 05/20/24 AUDRA ANDREWS During your visit today, we recorded the following information about you: Audra Andrews RN 05/20/2024 10:30 AM Signed [facility] called for DX code to be added to screening mammogram order. Z12.31 added and faxed to requested # [phone]. Pt is scheduled next week. Audra Andrews RN Allergies As of Date: 05/20/2024 Noted Allergy Reaction KEFLEX (CEPHALEXIN) 01/14/2017 16 - Unknown Date Reviewed: 07/17/2023 Reviewed by: Ryan Daniels APRN.STRUCTURAL WELDER - Fully Assessed Reason for Visit: DX [...] Status:Closed by AUDRA ANDREWS on 05/20/24 Normal [facility] Basophils Auto (Bld) [#/Vol] on 04-13-2024 Basophils (Bld) [#/Vol] 0.0 10 3/uL 0.0-0.1 [facility] Basophils/100 WBC Auto (Bld) on 04-13-2024 Basophils/100 WBC (Bld) 0.7 % 0.2-2.0 [facility] Eosinophils/100 WBC Auto (Bl d)on 04-13-2024 Eosinophils/100 WBC (Bld) 1.2 % 0.9-7.0 [facility] Erythrocyte distribution wid th Auto (RBC) [Ratio]on 04-13-2024 Erythrocyte distribution width (RBC) [Ratio] 12.1 % 11.0-15.0 [facility] Hematocrit Auto (Bld) [Volum e fraction]on 04-13-2024 Hematocrit (Bld) [Volume fraction] 41.0 % 36.0-48.0 [facility] Hemoglobin [Mass/volume] in Bloodon 04-13-2024 Hemoglobin (Bld) [Mass/Vol] 13.6 g/dL 12.0-16.0 [facility] Chip 04-13-2024 L Specimen: [id number] Received: 04/18/24 Status: GEMA Oneill Num: [id number] Spec Type: Impression Subm Dr: Juma Buckner DO Tissues: PATHPER Procedures: PATHREVIEW Age/ Patient Sex Location Account Attending Physician Albert Roberts 64/F LABELL [id number] Juma Buckner DO SPEC NUM: [id number] RECD: 04/18/24 STATUS: DAVIDLeonela ONEILL NUM: [id number] GILA: 04/13/[address]: Juma Buckner DO ENTERED: 04/18/[address] [facility] [address]: SPEC TYPE: Impression DEPT: MALENA Alvarez ENTERED BY: [id number] RECV BY: [id number] ORDERED: PATHREVIEW ORDERED: PATHREVIEW Pathologist Review Abnormal [...] radiation therapy, and drug related changes including adrenocorticosteroids, and antineoplastics. Continuous clinical correlations are suggested CPT: 57350 ---- ---- Specimen: [id number] Received: 04/18/24 Status: GEMA Oneill Num: [id number] Spec Type: Impression Subm Dr: Juma Buckner DO Tissues: PATHPER Procedures: PATHREVIEW ---- Patient: Albert Roberts [id number] (Continued) ---- Signed (signature on file) Yue Braga MD 04/18/242006 Normal [facility] - Hematology and Cell countson 04-13-2024 ESR (Bld) [Velocity] 6 mm/h <=30 [facility] Immature granulocytes/100 WBC (Bld) 0.2 % 0.0-0.5 [facility] Leukocytes [#/volume] correc noe for nucleated erythrocytes in Blood by Automated counon 04-13-2024 WBC corrected for nucl RBC Auto (Bld) [#/Vol] 5.7 10 3/uL 4.0-11.0 [facility] Lymphocytes Auto (Bld) [#/Vo l]on 04-13-2024 Lymphocytes (Bld) [#/Vol] 1.1 10 3/uL Low 1.2-3.8 [facility] Lymphocytes/100 WBC Auto (Bl d)on 04-13-2024 Lymphocytes/100 WBC (Bld) 18.8 % Low 20.5-60.0 [facility] MCH Auto (RBC) [Entitic mass ]on 04-13-2024 MCH (RBC) [Entitic mass] 31.3 pg 26.7-34.0 [facility] [facility] Auto (RBC) [Mass/Vol]on 04-13-2024 MCHC (RBC) [Mass/Vol] 33.2 g/dL 29.9-35.2 [facility] MCV Auto (RBC) [Entitic vol] on 04-13-2024 MCV (RBC) [Entitic vol] 94.5 fL 81.0-99.0 [facility] Monocytes Auto (Bld) [#/Vol] on 04-13-2024 Monocytes (Bld) [#/Vol] 0.3 10 3/uL 0.3-0.8 [facility] Monocytes/100 WBC Auto (Bld) on 04-13-2024 Monocytes/100 WBC (Bld) 5.4 % 1.7-12.0 [facility] Neutrophils Auto (Bld) [#/Vo l]on 04-13-2024 Neutrophils (Bld) [#/Vol] 4.2 10 3/uL 1.4-6.5 [facility] Neutrophils/100 WBC Auto (Bl d)on 04-13-2024 Neutrophils/100 WBC (Bld) 73.7 % 43.0-75.0 [facility] No Panel Informationon 04-13 C-Reactive Protein, Quantitative <0.50 mg/dL <=0.50 [facility] Eosinophils # (Auto) 0.1 10 3/uL 0.0-0.7 [facility] Immature Granulocyte # (Auto) 0.01 10 3/uL 0.00-0.03 [facility] Platelet mean volume Auto (B ld) [Entitic vol]on 04-13-2024 Platelet mean volume (Bld) [Entitic vol] 11.2 fL 9.5-13.5 [facility] Platelets Auto (Bld) [#/Vol] on 04-13-2024 Platelets (Bld) [#/Vol] 199 10 3/uL 150-450 [facility] RBC Auto (Bld) [#/Vol]on RBC (Bld) [#/Vol] 4.34 10 6/uL 4.20-5.40 [facility] Serum or plasma free cefurox haylee measurement (mass/volume)on 04-13-2024 Cefuroxime free [Mass/Vol] Negative Negative [facility] Comment on above: Performed at: [facility] [place] [id number] Director: Dima Sosa PhD, Phone: [phone] Activated partial thrombopla stin time (aPTT) in platelet poor plasma by coagulation aon 04-04-2024 aPTT Coag (PPP) [Time] 29.7 s 22.3-36.2 [facility] Basophils Auto (Bld) [#/Vol] on 04-04-2024 Basophils (Bld) [#/Vol] 0.0 10 3/uL 0.0-0.1 [facility] Basophils/100 WBC Auto (Bld) on 04-04-2024 Basophils/100 WBC (Bld) 1.5 % 0.2-2.0 [facility] Eosinophils/100 WBC Auto (Bl d)on 04-04-2024 Eosinophils/100 WBC (Bld) 3.0 % 0.9-7.0 [facility] Erythrocyte distribution wid th Auto (RBC) [Ratio]on 04-04-2024 Erythrocyte distribution width (RBC) [Ratio] 12.0 % 11.0-15.0 [facility] Estimated glomerular filtrat ion rate (GFR) non- Americanon 04-04-2024 GFR/1.73 sq M.predicted among non-blacks MDRD (S/P/Bld) [Vol rate/Area] 58 mL/min/{1.73_m2} Low >=60 [facility] Hematocrit Auto (Bld) [Volum e fraction]on 04-04-2024 Hematocrit (Bld) [Volume fraction] 42.8 % 36.0-48.0 [facility] Hemoglobin [Mass/volume] in Bloodon 04-04-2024 Hemoglobin (Bld) [Mass/Vol] 14.2 g/dL 12.0-16.0 [facility] INR in Platelet poor plasma by Coagulation assayon 04-04-2024 INR Coag (PPP) [Relative time] 1.13 {INR} [facility] Comment on above: DESIRED INR:2.0-3.0 CONDITIONS NOT LISTED BELOW2.5-3.5 FOR PROSTHETIC HEART VALVE REPLACEMENT2.5-3.5 RECURRENT THROMBOSIS Laboratory - Chemistry and C hemistry - challengeon 04-04-2024 Calcium [Mass/Vol] 8.9 mg/dL 8.5-10.1 [facility] Chloride [Moles/Vol] 104 mmol/L 98-107 [facility] CO2 [Moles/Vol] 27.6 mmol/L 21.0-32.0 [facility] Creatinine [Mass/Vol] 0.97 mg/dL 0.55-1.02 [facility] GFR/1.73 sq M.predicted MDRD (S/P/Bld) [Vol rate/Area] mL/min/{1.73_m2} >=60 [facility] Glucose [Mass/Vol] 92 mg/dL 74-106 [facility] Potassium [Moles/Vol] 4.0 mmol/L 3.5-5.1 [facility] Sodium [Moles/Vol] 140 mmol/L 136-145 [facility] Urea nitrogen [Mass/Vol] 25.0 mg/dL High 7.0-18.0 [facility] Urea nitrogen/Creatinine [Mass ratio] 25.8 mg/mg [facility] Laboratory - Hematology and Cell countson 04-04-2024 Immature granulocytes/100 WBC (Bld) 0.4 % 0.0-0.5 [facility] Leukocytes [#/volume] correc noe for nucleated erythrocytes in Blood by Automated counon 04-04-2024 WBC corrected for nucl RBC Auto (Bld) [#/Vol] 2.7 10 3/uL Low 4.0-11.0 [facility] Lymphocytes Auto (Bld) [#/Vo l]on 04-04-2024 Lymphocytes (Bld) [#/Vol] 0.9 10 3/uL Low 1.2-3.8 [facility] Lymphocytes/100 WBC Auto (Bl d)on 04-04-2024 Lymphocytes/100 WBC (Bld) 33.3 % 20.5-60.0 [facility] MCH Auto (RBC) [Entitic mass ]on 04-04-2024 MCH (RBC) [Entitic mass] 31.0 pg 26.7-34.0 [facility] MCHC Auto (RBC) [Mass/Vol]on 04-04-2024 MCHC (RBC) [Mass/Vol] 33.2 g/dL 29.9-35.2 [facility] MCV Auto (RBC) [Entitic vol] on 04-04-2024 MCV (RBC) [Entitic vol] 93.4 fL 81.0-99.0 [facility] Monocytes Auto (Bld) [#/Vol] on 04-04-2024 Monocytes (Bld) [#/Vol] 0.4 10 3/uL 0.3-0.8 [facility] Monocytes/100 WBC Auto (Bld) on 04-04-2024 Monocytes/100 WBC (Bld) 15.0 % High 1.7-12.0 [facility] Neutrophils Auto (Bld) [#/Vo l]on 04-04-2024 Neutrophils (Bld) [#/Vol] 1.3 10 3/uL Low 1.4-6.5 [facility] Neutrophils/100 WBC Auto (Bl d)on 04-04-2024 Neutrophils/100 WBC (Bld) 46.8 % 43.0-75.0 [facility] No Panel Informationon 04-04 Eosinophils # (Auto) 0.1 10 3/uL 0.0-0.7 [facility] Immature Granulocyte # (Auto) 0.01 10 3/uL 0.00-0.03 [facility] Platelet mean volume Auto (B ld) [Entitic vol]on 04-04-2024 Platelet mean volume (Bld) [Entitic vol] 10.9 fL 9.5-13.5 [facility] Platelets Auto (Bld) [#/Vol] on 04-04-2024 Platelets (Bld) [#/Vol] 198 10 3/uL 150-450 [facility] Prothrombin time (PT)on 03-08 PT Coag (PPP) [Time] 11.8 s High 9.0-11.6 [facility] RBC Auto (Bld) [#/Vol]on RBC (Bld) [#/Vol] 4.58 10 6/uL 4.20-5.40 [facility] Serum or plasma anion gap de terminationon 04-04-2024 Anion gap [Moles/Vol] 12.4 mmol/L [facility] Ambulatory Visit Summaryon 0 02-29-2024 Ambulatory Visit Summary ALBERT ROBERTS :1960 Visit Date:02/29/2024 Ambulatory Visit Instructions Your Diagnosis Kidney stones Asymptomatic microscopic hematuria Tests Performed XR Abdomen 1 View -- Results Pending -- Please visit your patient portal for your results or contact your primary care physician. Your Care Team Attending Physician - PATRICIA STRICKLAND, Roland Barksdale Primary Care Physician - JUMA BUCKNER [...] [facility] [address], [place] [address] [phone] Medications What How Much When Instructions New potassium citrate (potassium CITRATE 10 mEq ER Tab) 2 Tablets By Mouth 2 times a day Duration: 30 Days Refills: 11 Pickup at [facility] #[id number] Unchanged ergocalciferol (Vitamin D) By Mouth Every week Contact prescribing physician if questions or concerns Unchanged Non-Formulary Medication (Calcium) By Mouth Every day Contact prescribing physician if questions or concerns Pharmacy Information [facility] #[id number]: [address] [place], [place] [id number] [phone] What How Much When Comments Stop Taking [...] ? 8 oz (237 mL) of milk, dlbgonb-qggvmsmmivjc-c airy milk, and calcium-fortifiedfruit juice. Calcium-fortified means that [...] included)... Normal [facility] Patient Educationon 02-29-20 Patient Education Nephrology Dietary [...] ? 8 oz (237 mL) of milk, statdvk-hzvbxyxjetzs-k airy milk, and calcium-fortifiedfruit juice. Calcium-fortified means that [...] Spinach (cooked), rhubarb, beets, sweet potatoes, and [place] chard. ? Peanuts. ? Potato chips, citizen of [place] fries, and baked potatoes with skin on. ? Nuts and nut products. ? Chocolate. ? If you regularly take a diuretic medicine, make sure to eat at least 1 or 2 servings of fruits or vegetables that are high in potassium each day. These include: ? Avocado. ? Banana. ? Vigo, prune, carrot, or tomato juice. ? Baked [...] fish oil, or vitamin B6. ? Take fufm-lcw-mbjantf and prescription medicines only as told by your health care provider. These include supplements. What foods sh (more content not included)... Normal [facility] Urology Office/Clinic Noteon 02-29-2024 Urology Office/Clinic Note Chief Complaint kidney stones and asymptomatic microhematuria HPI Staff 1 yr with KUB @ [facility] 02/24/24 due to kidney stones. Previous DX: asymptomatic microscopic hematuria, dysuria, gross hematuria, hydronephrosis with urinary obstruction due to ureteral calculus, kidney stones, lower abdominal pain, microscopic hematuria, ureteral stone. S/P ESWL 04/11/21. Started Effer-K 25mEq BID at prior OV. Electrolyte panel was not done. Could not find any pertaining labs from PCP ([facility], [facility], or [facility] either. Dysuria: no Incomplete bladder emptying: [...] only been taking this once per day. [place] bloated when she took bid. Advised pt [...] Roland Barksdale, URL [facility] [address] , [place] [address]- [phone] Additional Instructions: 1 yr w/ KUB Patient Education Dietary Guidelines to Help Prevent Kidney Stones I, Nella Carrillo, personally scribed for Dr. Velez on 02/29/2024 11:56:08. . Documentation recorded by the saqibibedd, Nella Carrillo, accurately reflects the services(s) I [...] Tobacco Use:. Household (more content not included)... Normal [facility] Comment on above: Result Comment: Elec tronically Signed By: Roland VELEZ MD\.br\Date and Time Signed: 02/29/24 12:00 EDT\.br\Electronically Co-Signed By: Nella Carrillobr\Date and Time Co-Signed: 02/29/24 11:56 EDT RAD - MISCon 02-25-2024 RAD - MISC [id number] Normal [facility] OXALATE 24HR URINEon 022 Oxalates, Urine 14 mg/L Normal Undefined [facility] Comment on above: Performed By: #### U NICHOLE 24 #### [facility] [address] [place] [address] Dr. Lizzette Braga Oxalates, Urine 24hr 28 mg/24 hr Normal 4- [facility] Comment on above: Performed By: #### U NICHOLE 24 #### [facility] [address] [address] [address] Lizzette Braga CITRATE URINE 24HRon 022 Citric Acid, U, 24hr 265 mg/24 hr Critically low 320-1240 [facility] Comment on above: Result Comment: This test was developed and its performance characteristics determined by [facility]. It has not been cleared or approved by the Food and Drug Administration. Performed By: #### U NICHOLE 24 #### [facility] [address] [address] [address] Lizzette Braga Citric Acid, Urine 131 mg/L Normal Undefined [facility] Comment on above: Performed By: #### U NICHOLE 24 #### [facility] [address] [place] [address] Dr. Lizzette Braga MAGNESIUM 24HR URINEon 04-03 Magnesium 24hr Urine 68.9 mg/24 hr Normal 12.0-293.0 [facility] Comment on above: Performed By: #### U NICHOLE 24 #### [facility] [address] [place] [address] Dr. Lizzette Braga Magnesium UR 3.4 mg/dL Normal Not Estab. [facility] Comment on above: Performed By: #### U NICHOLE 24 #### [facility] [address] [place] [address] Dr. Lizzette Braga PHOSPHORUS 24HR URINEon 03-08 Phosphorus, Urine 21.6 mg/dL Normal Not Estab. [facility] Comment on above: Performed By: #### U NICHOLE 24 #### [facility] [address] [place] [address] Dr. Lizzette Braga Phosphorus, Urine 24hr 437 mg/24 hr Normal 261-1078 [facility] Comment on above: Performed By: #### U NICHOLE 24 #### [facility] [address] [place] [address] Dr. Lizzette Braga URIC ACID 24 HR URINEon 03-08 Uric Acid, Urine 19.0 mg/dL Normal Not Estab. The [facility] Comment on above: Performed By: #### U NICHOLE 24 #### [facility] [address] [place] [address] Dr. Lizzette Brgaa Uric Acid, Urine 24hr 384.8 mg/24 hr Normal 142.3-713. 2 [facility] Comment on above: Performed By: #### U NICHOLE 24 #### [facility] [address] [place] [address] Dr. Lizzette Braga CALCIUM 24 HR URINEon 2021 CALC, 24 HR UR 141.8 mg/24 hr Normal 100.0-300.0 [place] Comment on above: Performed By: #### U NICHOLE 24 #### [facility] [address] [place] [address] Dr. Lizzette Braga UR CALCIUM 7.0 mg/dL Normal 5.1-21.0 [facility] Comment on above: Performed By: #### U NICHOLE 24 #### [facility] [address] [place] [address] Dr. Lizzette Braga CREA 24 HR URINEon 2 CREA, 24 HR UR 896.06 mg/24 hr Normal 800.00-1,8 00.0 0 [facility] Comment on above: Performed By: #### U NICHOLE 24 #### [facility] [address] [place] [address] Dr. Lizzette Braga URINE CREAT 44.25 mg/dL Normal 20.00-300.00 [facility] Comment on above: Performed By: #### U NICHOLE 24 #### [facility] [address] [place] [address] Dr. Lizzette Braga PTH INTACTon 04-01-2022 PTH, Intact 36 pg/mL Normal 15-65 [facility] Comment on above: Performed By: #### U NICHOLE 24 #### [facility] [address] [place] [address] Dr. Lizzette Braga SODIUM 24 HR URINEon 022 NA, 24 HR UR 99 mmol/24 hr Normal 40-220 [facility] Comment on above: Performed By: #### U NICHOLE 24 #### [facility] [address] [place] [address] Dr. Lizzette Braga Sodium (U) [Moles/Vol] 49 mmol/L Normal 30-90 [facility] Comment on above: Performed By: #### U NICHOLE 24 #### [facility] [address] [place] [address] Dr. Lizzette Braga UR TOT VOL 2025 ml/24 HR Normal [facility] Comment on above: Performed By: #### U NICHOLE 24 #### [facility] [address] [place] [address] Dr. Lizzette Braga BUNon 03-31-2022 Urea nitrogen [Mass/Vol] 18.0 mg/dL Normal 7.0-18.0 [facility] Comment on above: Performed By: #### C O2, CA, URIC, NA, K, CREA, BUN, CL #### [facility] [address] [place] [address] Dr. Lizzette Braga CALCIUMon 03-31-2022 Calcium [Mass/Vol] 9.0 mg/dL Normal 8.5-10.1 [facility] Comment on above: Performed By: #### U NICHOLE 24 #### [facility] [address] [place] [address] Dr. Lizzette Braga CHLORIDEon 03-31-2022 Chloride [Moles/Vol] 105 mmol/L Normal 98-107 [facility] Comment on above: Performed By: #### C O2, CA, URIC, NA, K, CREA, BUN, CL #### [facility] [address] [place] [address] Dr. Lizzette Braga CO2on 03-31-2022 CO2 [Moles/Vol] 27.7 mmol/L Normal 21.0-32.0 [facility] Comment on above: Performed By: #### C O2, CA, URIC, NA, K, CREA, BUN, CL #### [facility] [address] [place] [address] Dr. Lizzette Braga CREATININEon 03-31-2022 Creatinine [Mass/Vol] 0.96 mg/dL Normal 0.55-1.02 [facility] Comment on above: Performed By: #### C O2, CA, URIC, NA, K, CREA, BUN, CL #### [facility] [address] [address] [address] Lizzette Braga EGFR-AF BURKINAN >60 Normal >=60 [facility] Comment on above: Performed By: #### C O2, CA, URIC, NA, K, CREA, BUN, CL #### [facility] [address] [address] [address] Lizzette Braga EGFR-NON AF BURKINAN 59 mL/min/1.73m2 Critically low >=60 [facility] Comment on above: Performed By: #### C O2, CA, URIC, NA, K, CREA, BUN, CL #### [facility] [address] [place] [address] Dr. Lizzette Braga NAon 03-31-2022 Sodium [Moles/Vol] 141 mmol/L Normal 136-145 [facility] Comment on above: Performed By: #### C O2, CA, URIC, NA, K, CREA, BUN, CL #### [facility] [address] [place] [address] Dr. Lizzette Braga POTASSIUMon 03-31-2022 Potassium [Moles/Vol] 4.1 mmol/L Normal 3.5-5.1 [facility] Comment on above: Performed By: #### C O2, CA, URIC, NA, K, CREA, BUN, CL #### [facility] [address] [address] [address] Lizzette Braga URIC ACID SERUMon 03-31-2022 Urate [Mass/Vol] 3.0 mg/dL Normal 2.6-6.0 [facility] Comment on above: Performed By: #### C O2, CA, URIC, NA, K, CREA, BUN, CL #### [facility] [address] [place] [address] Dr. Lizzette Braga XR KUB 1 VIEWon [...] ISRRAEL COOPER Date: 2022-02-28 06:17 Normal [facility] CALCULI, URINARYon 1 2,8 Dihydroxyadenine Normal [facility] Comment on above: Performed By: #### U NICHOLE 24 #### [facility] [address] [address] [address] Lizzette Braga Ammonium Acid Urate Normal [place] Comment on above: Performed By: #### U NICHOLE 24 #### [facility] [address] [place] [address] Dr. Lizzette Braga Bilirubin Ql (U) Normal [facility] Comment on above: Performed By: #### U NICHOLE 24 #### [facility] [address] [address] [address] Lizzette Braga Ca Oxalate Dihydrate 20 % Normal [facility] Comment on above: Performed By: #### U NICHOLE 24 #### [facility] [address] [address] [address] Lizzette Braga CaHPO4 (Brushite) Normal [facility] Comment on above: Performed By: #### U NICHOLE 24 #### [facility] [address] [address] [address] Lizzette Braga Calcium Bilirubinate Normal [facility] Comment on above: Performed By: #### U NICHOLE 24 #### [facility] [address] [address] [address] Lizzette Braga Calcium Carbonate Normal [facility] Comment on above: Performed By: #### U NICHOLE 24 #### [facility] [address] [address] [address] Lizzette Braga Calcium Oxalate Monohydrate 80 % [facility] Comment on above: Performed By: #### U NICHOLE 24 #### [facility] [address] [place] [address] Dr. Lizzette Braga Calcium Palmitate Normal [facility] Comment on above: Performed By: #### U NICHOLE 24 #### [facility] [address] [address] [address] Lizzette Braga Calcium Phosphate Normal [facility] Comment on above: Performed By: #### U NICHOLE 24 #### [facility] [address] [address] [address] Lizzette Braga Calcium Stearate Normal [facility] Comment on above: Performed By: #### U NICHOLE 24 #### [facility] [address] [address] [address] Lizzette Braga Carbonate Apatite Normal [facility] Comment on above: Performed By: #### U NICHOLE 24 #### [facility] [address] [address] [address] Lizzette Braga Cellular Material Normal [facility] Comment on above: Performed By: #### U NICHOLE 24 #### [facility] [address] [address] [address] Lizzette Braga Cholesterol [facility] Comment on above: Performed By: #### U NICHOLE 24 #### [facility] [address] [address] [address] Lizzette Braga Color (U) Brown Normal [facility] Comment on above: Performed By: #### U NICHOLE 24 #### [facility] [address] [address] [address] Lizzette Braga Comment [facility] Comment on above: Performed By: #### U NICHOLE 24 #### [facility] [address] [address] [address] Lizzette Braga Comment: Comment Normal [facility] Comment on above: Result Comment: Lyle carias questions regarding Calculi Analysis contact [facility] at: [phone]. Performed By: #### U NICHOLE 24 #### [facility] [address] [place] [address] Dr. Lizzette Braga Composition Comment [facility] Comment on above: Result Comment: Perc entage (Represents the % composition) Performed By: #### U NICHOLE 24 #### [facility] [address] [address] [address] Lizzette Braga Cystine Normal [facility] Comment on above: Performed By: #### U NICHOLE 24 #### [facility] [address] [place] [address] Dr. Lizzette Braga Disclaimer: Comment Normal [facility] Comment on above: Result Comment: This test was developed and its performance characteristics determined by [facility]. It has not been cleared or approved by the Food and Drug Administration. Performed By: #### U NICHOLE 24 #### [facility] [address] [address] [address] Lizzette Braga Dried Blood [facility] Comment on above: Performed By: #### U NICHOLE 24 #### [facility] [address] [place] [address] Dr. Lizzette Braga Drug or Metabolite [facility] Comment on above: Performed By: #### U NICHOLE 24 #### [facility] [address] [place] [address] Dr. Lizzette Braga Hydroxyapatite [facility] Comment on above: Performed By: #### U NICHOLE 24 #### [facility] [address] [place] [address] Dr. Lizzette Braga Mg NH4 PO4 (Struvite) [facility] Comment on above: Performed By: #### U NICHOLE 24 #### [facility] [address] [place] [address] Dr. Lizzette Braga MgHPO4 (New[place]ite) Normal [place] Comment on above: Performed By: #### U NICHOLE 24 #### [facility] [address] [place] [address] Dr. Lizzette Braga Other component(s) Normal [facility] Comment on above: Performed By: #### U NICHOLE 24 #### [facility] [address] [place] [address] Dr. Lizzette Braga PDF . Normal [facility] Comment on above: Performed By: #### U NICHOLE 24 #### [facility] [address] [place] [address] Dr. Lizzette Braga Photo Comment Normal [facility] Comment on above: Result Comment: Phot ograph will follow under a separate cover Performed By: #### U NICHOLE 24 #### [facility] [address] [address] [address] Lizzette Braga Please note: Comment Normal [facility] Comment on above: Result Comment: Calc romelia report will follow via computer, mail or technology analyst delivery. Performed By: #### U NICHOLE 24 #### [facility] [address] [address] [address] Lizzette Braga Size 3x3 Normal [facility] Comment on above: Result Comment: Mult iple pieces received. Dimensions of the largest piece reported. Performed By: #### U NICHOLE 24 #### [facility] [address] [address] [address] Lizzette Braga Sodium Acid Urate [facility] Comment on above: Performed By: #### U NICHOLE 24 #### [facility] [address] [place] [address] Dr. Lizzette Braga Source Comment Normal [facility] Comment on above: Result Comment: Not provided Performed By: #### U NICHOLE 24 #### [facility] [address] [address] [address] Lizzette Braga Triamterene [facility] Comment on above: Performed By: #### U NICHOLE 24 #### [facility] [address] [address] [address] Lizzette Braga Uric Acid [facility] Comment on above: Performed By: #### U NICHOLE 24 #### [facility] [address] [address] [address] Lizzette Braga Uric Acid Dihydrate Normal [place] Comment on above: Performed By: #### U NICHOLE 24 #### [facility] [address] [address] [address] Lizzette Braga Weight 84 mg [facility] Comment on above: Performed By: #### U NICHOLE 24 #### [facility] [address] [address] [address] Lizzette Braga Xanthine [facility] Comment on above: Performed By: #### U NICHOLE 24 #### [facility] [id number] Lizzette Braga XR KUB 1 VIEWon [...] by: ISRRAEL COOPER Date: 2021 07:38 Normal [facility] COVID-19 Positive/Negativeon 02-25-2021 SARS-CoV-2 (COVID-19) N gene TREVOR+probe Ql (Resp) Negative Negative [facility] Comment on above: Testing for SARS-CoV -2 by RT-PCRThis test was developed and its performance characteristics determined by [employer] ([employer]) and validated at the [facility]. This test has not been FDA cleared [...] 02-14-2021 Basophils (Bld) [#/Vol] 0.0 10*3/uL 0.0-0.2 [facility] Basophils/100 WBC Auto (Bld) on 02-14-2021 Basophils/100 WBC (Bld) 0.5 % [facility] Blood hemoglobin measurement (mass/volume)on 02-14-2021 Hemoglobin (Bld) [Mass/Vol] 14.3 g/dL 11.8-15.4 [facility] Blood leukocytes automated c ount (number/volume)on 02-14-2021 WBC (Bld) [#/Vol] 5.0 10*3/uL 4.5-11.0 [facility] Creatinine and Glomerular fi ltration rate.predicted panel (S/P/Bld)on 02-14-2021 Creatinine [Mass/Vol] 0.89 mg/dL 0.44-1.03 [facility] Eosinophils Auto (Bld) [#/Vo l]on 02-14-2021 Eosinophils (Bld) [#/Vol] 0.1 10*3/uL 0.0-0.45 [facility] Eosinophils/100 WBC Auto (Bl d)on 02-14-2021 Eosinophils/100 WBC (Bld) 1.3 % [facility] Erythrocyte distribution wid th Auto (RBC) [Ratio]on 02-14-2021 Erythrocyte distribution width (RBC) [Ratio] 12.8 % 11.9-15.3 [facility] Estimated glomerular filtrat ion rate (GFR) non- Americanon 02-14-2021 GFR/1.73 sq M.predicted among non-blacks MDRD (S/P/Bld) [Vol rate/Area] > 60 mL/Min [facility] Hematocrit Auto (Bld) [Volum e fraction]on 02-14-2021 Hematocrit (Bld) [Volume fraction] 42.9 % 34.0-46.4 [facility] Laboratory - Hematology and Cell countson 02-14-2021 Nucleated RBC/100 WBC (Bld) [Ratio] 0.3 % 0-0.5 [facility] Lymphocytes Auto (Bld) [#/Vo l]on 02-14-2021 Lymphocytes (Bld) [#/Vol] 1.0 10*3/uL 1.00-4.8 [facility] Lymphocytes/100 WBC Auto (Bl d)on 02-14-2021 Lymphocytes/100 WBC (Bld) 19.9 % [facility] MCH Auto (RBC) [Entitic mass ]on 02-14-2021 MCH (RBC) [Entitic mass] 31.1 pg 24.7-34.3 [facility] MCHC Auto (RBC) [Mass/Vol]on 02-14-2021 MCHC (RBC) [Mass/Vol] 33.5 g/dL 32.0-35.0 [facility] MCV Auto (RBC) [Entitic vol] on 02-14-2021 MCV (RBC) [Entitic vol] 93.0 fL 80-100 [facility] Monocytes Auto (Bld) [#/Vol] on 02-14-2021 Monocytes (Bld) [#/Vol] 0.4 10*3/uL 0.0-0.8 [facility] Monocytes/100 WBC Auto (Bld) on 02-14-2021 Monocytes/100 WBC (Bld) 7.1 % [facility] Neutrophils Auto (Bld) [#/Vo l]on 02-14-2021 Neutrophils (Bld) [#/Vol] 3.6 10*3/uL 1.8-7.7 [facility] Neutrophils/100 WBC Auto (Bl d)on 02-14-2021 Neutrophils/100 WBC (Bld) 71.2 % [facility] No Panel Informationon 02-14 Estimated GFR () > 60 mL/Min [facility] Comment on above: GFR estimated refere nce range: According to KDOQI guidelines, <60 ml/min/1.73m2 is sufficient to diagnose a patient with chronic kidney disease. Pharmacy Creatinine Clearance (Chem N/A [facility] Platelet mean volume Auto (B ld) [Entitic vol]on 02-14-2021 Platelet mean volume (Bld) [Entitic vol] 10.2 fL 6.3-10.7 [facility] Platelets Auto (Bld) [#/Vol] on 02-14-2021 Platelets (Bld) [#/Vol] 198 10*3/uL 150-450 [facility] RBC Auto (Bld) [#/Vol]on RBC (Bld) [#/Vol] 4.61 10*6/uL 3.60-5.00 [facility] Serum or plasma calcium macario urement (mass/volume)on 02-14-2021 Calcium [Mass/Vol] 9.5 mg/dL 8.2-10.2 [facility] Serum or plasma chloride tylor surement (moles/volume)on 02-14-2021 Chloride [Moles/Vol] 100 mmol/L 95-114 [facility] Serum or plasma glucose macario urement (mass/volume)on 02-14-2021 Glucose [Mass/Vol] 93 mg/dL 70-100 [facility] Comment on above: ADA recommended refe rence rangeRandom Glucose Reference Range is dependent on time and content of last meal. Glucose of more than 200 mg/dL in a nonstressed, ambulatory subject supports the diagnosis of Diabetes Mellitus. Serum or plasma potassium me asurement (moles/volume)on 02-14-2021 Potassium [Moles/Vol] 4.2 mmol/L 3.5-5.1 [facility] Serum or plasma sodium measu rement (moles/volume)on 02-14-2021 Sodium [Moles/Vol] 139 mmol/L 136-146 [facility] Serum or plasma total carbon dioxide measurement (moles/volume)on 02-14-2021 CO2 [Moles/Vol] 24.7 mmol/L 22.0-30.0 [facility] Serum or plasma urea nitroge n measurement (mass/volume)on 02-14-2021 Urea nitrogen [Mass/Vol] 20 mg/dL 9- [facility] Vital Signs Date Time Vital Sign Value Performing Clinician Facility 07-14-2024 15:26-0500 Body height 165.1 cm Liborio Sarabia MD Work Phone: [facility] 07-14-2024 15:26-0500 Body mass index (BMI) [Ratio] 21.61 kg/m2 Liborio Sarabia MD Work Phone: [facility] 07-14-2024 15:26-0500 Body temperature 96.8 [degF] Liborio Sarabia MD Work Phone: [facility] 07-14-2024 15:26-0500 Body weight 58.9 kg Liborio Sarabia MD Work Phone: [facility] 07-14-2024 15:26-0500 Diastolic blood pressure 87 mm[Hg] Liborio Sarabia MD Work Phone: [facility] 07-14-2024 15:26-0500 Heart rate 66 /min Liborio Sarabia MD Work Phone: [facility] 07-14-2024 15:26-0500 Respiratory rate 16 /min Liborio Sarabia MD Work Phone: [facility] 07-14-2024 15:26-0500 SaO2% (BldA) [Mass fraction] 100 % Liborio Sarabia MD Work Phone: [facility] 07-14-2024 15:26-0500 Systolic blood pressure 151 mm[Hg] Liborio Sarabia MD Work Phone: [facility] 06-07-2024 15:31-0400 Blood Pressure Location Roland VELEZ [facility] 06-07-2024 15:31-0400 Diastolic blood pressure 84 mm[Hg] Roland VELEZ [facility] 06-07-2024 15:31-0400 Heart rate 96 /min Roland VELEZ [facility] 06-07-2024 15:31-0400 Respiratory rate 16 /min Roland VELEZ [facility] 06-07-2024 15:31-0400 Systolic blood pressure 128 mm[Hg] Roland VELEZ [facility] 02-29-2024 11:18-0400 Blood Pressure Location Roland VELEZ [facility] 02-29-2024 11:18-0400 Body temperature 98.6 [degF] Roland VELEZ [facility] 02-29-2024 11:18-0400 Diastolic blood pressure 84 mm[Hg] Roland VELEZ [facility] 02-29-2024 11:18-0400 Heart rate 69 /min Rolandmari VELEZ [facility] 02-29-2024 11:18-0400 Respiratory rate 16 /min Roland VELEZ [facility] 02-29-2024 11:18-0400 Systolic blood pressure 124 mm[Hg] Roland VELEZ [facility] 07-16-2023 14:59-0500 Body height 165.1 cm Liborio Sarabia MD Work Phone: [facility] 07-16-2023 14:59-0500 Body temperature 97.5 [degF] Lbiorio Sarabia MD Work Phone: [facility] 07-16-2023 14:59-0500 Body weight 58.15 kg Liborio Sarabia MD Work Phone: [facility] 07-16-2023 14:59-0500 Diastolic blood pressure 70 mm[Hg] Liborio Sarabia MD Work Phone: [facility] 07-16-2023 14:59-0500 Heart rate 80 /min Liborio Sarabia MD Work Phone: [facility] 07-16-2023 14:59-0500 Respiratory rate 16 /min Liborio Sarabia MD Work Phone: [facility] 07-16-2023 14:59-0500 SaO2% (BldA) [Mass fraction] 100 % Liborio Sarabia MD Work Phone: [facility] 07-16-2023 14:59-0500 Systolic blood pressure 159 mm[Hg] Liborio Sarabia MD Work Phone: [facility] 06-19-2023 14:45-0400 Body height 161.29 cm Juma Ball Other [employer] Other 06-19-2023 14:45-0400 Body mass index (BMI) [Ratio] 22.14 kg/m2 Juma Ball Other [employer] Other 06-19-2023 14:45-0400 Body weight 57.61 kg Juma Ball Other [employer] Other 06-19-2023 14:45-0400 Diastolic blood pressure 79 mm[Hg] Juma Ball Other [employer] Other 06-19-2023 14:45-0400 Respiratory rate 12 /min Juma Ball Other [employer] Other 06-19-2023 14:45-0400 Systolic blood pressure 156 mm[Hg] Juma Ball Other [employer] Other 10-28-2022 16:30-0500 Body height 161.29 cm Karina Carlson Other [employer] Other 10-28-2022 16:30-0500 Body mass index (BMI) [Ratio] 21.97 kg/m2 Karina Carlson Other [employer] Other 10-28-2022 16:30-0500 Body temperature 97.3 [degF] Karina Carlson Other [employer] Other 10-28-2022 16:30-0500 Body weight 57.15 kg Karina Carlson Other [employer] Other 10-28-2022 16:30-0500 Respiratory rate 19 /min Karina Carlson Other [employer] Other 10-28-2022 16:30-0500 SaO2% (BldA) [Mass fraction] Karina Carlson Other [employer] Other 08-06-2022 15:15-0500 Blood Pressure Location Roland VELEZ [facility] 08-06-2022 15:15-0500 Diastolic blood pressure 80 mm[Hg] Roland VELEZ [facility] 08-06-2022 15:15-0500 Heart rate 72 /min Roland VELEZ [facility] 08-06-2022 15:15-0500 Systolic blood pressure 141 mm[Hg] Roland VELEZ [facility] 06-16-2022 15:31-0400 Body height 165.1 cm Liborio Sarabia MD Work Phone: [facility] 06-16-2022 15:31-0400 Body temperature 97.39 [degF] Liborio Sarabia MD Work Phone: [facility] 06-16-2022 15:31-0400 Body weight 55.97 kg Liborio Sarabia MD Work Phone: [facility] 06-16-2022 15:31-0400 Diastolic blood pressure 67 mm[Hg] Liborio Sarabia MD Work Phone: [facility] 06-16-2022 15:31-0400 Heart rate 82 /min Liborio Sarabia MD Work Phone: [facility] 06-16-2022 15:31-0400 Respiratory rate 16 /min Liborio Sarabia MD Work Phone: [facility] 06-16-2022 15:31-0400 SaO2% (BldA) [Mass fraction] 99 % Liborio Sarabia MD Work Phone: [facility] 06-16-2022 15:31-0400 Systolic blood pressure 147 mm[Hg] Liborio Sarabia MD Work Phone: [facility] 03-12-2022 10:42-0400 Blood Pressure Location Roland VELEZ [facility] 03-12-2022 10:42-0400 Diastolic blood pressure 89 mm[Hg] Roland VELEZ [facility] 03-12-2022 10:42-0400 Heart rate 85 /min Roland VELEZ [facility] 03-12-2022 10:42-0400 Respiratory rate 16 /min Roland VELEZ [facility] 03-12-2022 10:42-0400 Systolic blood pressure 139 mm[Hg] Roland VELEZ [facility] Encounters Encounter Date Encounter Type Care Provider Facility Start: 03-03-2025 ambulatory Roland Dominguezi ty:[facility] Start: 08-30-2024 ambulatory DIPTI Andersen ty:[facility] Start: 07-15-2024 End: 07-15-2024 ambulatory Liborio Sarabia MD Work Phone: Hematology/Oncology Comment on above: Concern Start: 07-15-2024 End: 07-17-2024 Telephone encounter Olivia Oneal RN Hematology/Oncology Start: 07-14-2024 End: 07-14-2024 ambulatory JUMA BUCKNER Facility:[facility] Start: 07-14-2024 End: 07-14-2024 Office outpatient visit 15 minutes Liborio Sarabia MD Work Phone: Hematology/Oncology Comment on above: Malignant neoplasm o f upper-outer quadrant of right breast in female, estrogen receptor positive (HCC) (Primary Dx); Encounter for screening mammogram for malignant neoplasm of breast Start: 06-07-2024 End: 06-07-2024 ambulatory Roland VELEZ Facility:[facility] Start: 06-07-2024 End: 06-07-2024 Patient encounter procedure Roland VELEZ [facility] Start: 05-28-2024 End: 05-28-2024 ambulatory [facility] Start: 05-26-2024 End: 05-26-2024 ambulatory Roland VELEZ Facility:[facility]:[id number] Start: 05-20-2024 End: 05-20-2024 Patient encounter procedure [facility] Provider [facility] Start: 05-20-2024 End: 05-20-2024 Telephone encounter Audra Andrews RN Hematology/Oncology Comment on above: DX code for screenin g mammogram needed Start: 04-13-2024 Non-patient / Non-visit DO Loi Buckner [facility] Phone[facility] Work Phone: Start: 04-13-2024 End: 04-14-2024 ambulatory DO Juma Buckner Work Phone: [facility] Work Phone: Start: 04-13-2024 End: 04-13-2024 Departed Referred DO Juma Buckner Work Phone: [facility] Start: 04-04-2024 Non-patient / Non-visit DO Loi Buckner Work Phone: [facility] Work Phone: Start: 02-29-2024 End: 02-29-2024 ambulatory [facility] Start: 02-29-2024 End: 02-29-2024 Patient encounter procedure Roland VELEZ [facility] Start: 07-17-2023 End: 07-17-2023 ambulatory Juma Buckner Other [employer] Other Start: 07-17-2023 Telephone encounter Juma Buckner [facility] Start: 07-16-2023 End: 07-16-2023 ambulatory Liborio Sarabia MD Work Phone: Hematology/Oncology Comment on above: Malignant neoplasm o f upper-outer quadrant of right breast in female, estrogen receptor positive (HCC) (Primary Dx); Age-related osteoporosis without current pathological fracture Start: 07-16-2023 End: 07-16-2023 Patient encounter procedure Liborio Sarabia MD Work Phone: [facility] Start: 06-19-2023 End: 06-19-2023 ambulatory Juma Buckner Other [employer] Other Start: 06-19-2023 Encounter for genera l adult medical examination without abnormal findings Juma Buckner [facility] Start: 06-19-2023 Periodic preventive med est patient 40-64yrs Juma Buckner [facility] Start: 04-27-2023 Telephone encounter Dipti Baumann RN Hematology/Oncology Comment on above: Orders Start: 10-28-2022 End: 10-28-2022 ambulatory Karina Carlson Other [employer] Other Start: 10-28-2022 Office outpatient ne w 20 minutes Karina Carlson [facility] Start: 08-06-2022 End: 08-06-2022 Patient encounter procedure Roland VELEZ [facility] Start: 06-16-2022 End: 06-16-2022 ambulatory Liborio Sarabia [...] Patient encounter procedure Roland VELEZ [facility] Start: 02-27-2022 End: 02-28-[address] [...] Date Procedure Procedure Detail Performing Clinician Start: 06-07-2024 Cystoscopic removal of ureteric stent Roland VELEZ Start: 05-02-2022 Mammography Dipti shearer RN Start: 06-17-2021 Adult depression scr eening assessment Ryan Daniels ACCOUNT 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 MANAGER.STRU[employer]URAL WELDER Work Phone: Start: 04-30-2021 Mammography Ryan ledesma ACCOUNT GENERAL MANAGER.STRUCTURAL WELDER Work Phone: Start: 2021 Extracorporeal shock wave lithotripsy of calculus of kidney Roland VELEZ Start: 11-07-2019 Cystoscopy Roland JESUS JORGEKatherin Appendectomy Roland VELEZ Breast structure (cele dy structure) Roland VELEZ Tonsillectomy Roland VELEZ Plan of Treatment Date Care Activity Detail Author Start: 2035 RSV Vaccine (1 - 1-d ose 75+ series) RSV Vaccine (1 - 1-dose 75+ series) [facility] Start: 07-14-2027 Diabetes Screening Diabetes Screenin g [facility] Start: 05-28-2025 Screening for malign ant neoplasm of breast Mammogram Screening [facility] Start: 08-11-2024 End: 08-11-2024 Patient encounter procedure 08/11/2024 4:00 PM EST Office Visit [facility] [address] [place] [address] [place] [address] [facility] Comment on above: LAB Start: 08-11-2024 End: 11-10-2024 Cancer Ag 27-29 [Units/volume] in Serum or Plasma CA 27.29 BLOOD Lab Routine Malignant neoplasm of upper-outer quadrant of right breast in female, estrogen receptor positive (HCC) Expected: 08/11/2024, Expires: 11/10/2024 [facility] Work Phone: Comment on above: Expected: 08/11/2024 , Expires: 11/10/2024 Start: 07-14-2024 End: 07-14-2024 Follow-up encounter 07/14/2024 3:45 PM EST Visit (SP) Office Hematology/Oncology [address] [place] [address] Liborio Sarabia MD [address] [place] [address] [place] [address] 1 year follow up Hematology/Oncology Comment on above: 1 year follow up Start: 07-14-2024 End: 07-14-2024 Patient encounter procedure 07/14/2024 3:30 PM EST Office Visit [facility] [address] [place] [place] [address] 1 year follow up [facility] Comment on above: 1 year follow up Start: 07-14-2024 End: 10-13-2024 Cancer Ag 27-29 [Units/volume] in Serum or Plasma [facility] Work Phone: Comment on above: Expected: 07/14/2024 , Expires: 10/13/2024 Start: 06-17-2024 DIABETES SCREEN DIABETES SCREEN [facility] Start: 06-17-2024 Diabetes Screening Diabetes Screenin g [facility] Start: 05-08-2024 Covid-19 Vaccine ( season) Covid-19 Vaccine ( season) [facility] Start: 05-08-2024 Covid-19 Vaccine ( season) Covid-19 Vaccine ( season) [facility] Start: 05-08-2024 Influenza vaccination Influenza Vacc ine (#1) [facility] Start: 05-04-2024 Mammography Mammogram Screening [facility] Start: 05-04-2024 Screening for malign ant neoplasm of breast Mammogram Screening [facility] Start: 04-10-2024 Screening for malign ant neoplasm of colon [facility] Start: 05-08-2023 Influenza vaccination C [facility] Start: 05-02-2023 Mammography MAMMOGRAM [facility] Start: 09-07-2022 DEPRESSION ASSESSMENT DEPRESSION ASS [facility] Start: 06-17-2022 Adult depression screening assessment DEPRESSION SCREENING [facility] Start: 05-08-2022 Influenza vaccination C [facility] Start: 04-30-2022 Mammography MAMMOGRAM [facility] Start: 09-07-2021 [facility] Start: 2020 RSV Vaccine (1 - 1-d ose 60+ series) RSV Vaccine (1 - 1-dose 60+ series) [facility] Start: 2010 SHINGRIX VACCINE (1 of 2) SHINGRIX VACCINE (1 of 2) [facility] Start: 2005 COLOGUARD (FIT-DNA) COLOGUARD (FIT-D NA) [facility] Start: 2005 Colonoscopy COLONOSCOPY [facility] Start: 2005 COLORECTAL CANCER SCREENING COLORECTAL CANCER SCREENING [facility] Start: [address] COLONOGRAPHY [facility] Start: 2005 FECAL OCCULT BLOOD FECAL OCCULT BLOO D [facility] Start: 2005 Lipid 1996 panel - S gisell or Plasma Lipid Screening [facility] Start: 2005 Lipid panel Lipid Screening [facility] Start: 2005 LIPID SCREEN LIPID SCREEN [facility] Start: 2005 Screening for malign ant neoplasm of colon [facility] Start: 2005 SIGMOIDOSCOPY SIGMOIDOSCOPY [facility] Start: 1990 HPV TESTING HPV TESTING [facility] Start: 1981 PAP TESTING PAP TESTING [facility] Start: 1981 Screening for malign ant neoplasm of cervix Cervical Cancer Screening [facility] Start: 1979 Urine microalbumin profile [facility] Start: 1978 Anxiety Screening Anxiety Screening [facility] Start: 1978 Depression Screening Depression Scre ening [facility] Start: 1978 HEPATITIS C SCREENING HEPATITIS C [facility] Start: 1978 Hepatitis C screening Hepatitis C [facility] Start: 1978 HIV SCREENING HIV SCREENING [facility] Start: 1978 HIV screening HIV Screening [facility] Start: 1966 PNEUMOCOCCAL (1 - PCV) PNEUMOCOCCAL (1 - PCV) [facility] Start: 1965 COVID-19 VACCINE (#1) COVID-19 VACCI NE (#1) [facility] Start: 1960 COVID-19 VACCINE (#1) COVID-19 VACCI NE (#1) [facility] End: 07-16-2023 Diagnostic mammography computer-aided detcj bi [facility] Radiology Routine Malignant neoplasm of upper-outer quadrant of right breast in female, estrogen receptor positive (HCC) 1 Occurrences starting 06/16/2022 until 07/16/2023 [facility] Work Phone: Comment on above: 1 Occurrences starti ng 06/16/2022 until 07/16/2023 End: 08-14-2024 DXA-FOREARM SKELETON DXA-FOREARM SKELETON Radiology Routine Age-related osteoporosis without current pathological fracture Malignant neoplasm of upper-outer quadrant of right breast in female, estrogen receptor positive (HCC) 1 Occurrences starting 07/16/2023 until 08/14/2024 [facility] Work Phone: Comment on above: 1 Occurrences starti ng 07/16/2023 until 08/14/2024 End: 05-26-2024 MEMO SCREENING MEMO SCREENING Radiology Routine Encounter for screening mammogram for malignant neoplasm of breast 1 Occurrences starting 04/27/2023 until 05/26/2024 [facility] Work Phone: Comment on above: 1 Occurrences starti ng 04/27/2023 until 05/26/2024 End: 08-14-2024 MEMO SCREENING W FAISAL MEMO SCREENING W FAISAL Radiology Routine Age-related osteoporosis without current pathological fracture Malignant neoplasm of upper-outer quadrant of right breast in female, estrogen receptor positive (HCC) 1 Occurrences starting 07/16/2023 until 08/14/2024 [facility] Work Phone: Comment on above: 1 Occurrences starti ng 07/16/2023 until 08/14/2024 End: 08-13-2025 MG Breast Screening MEMO SCREENING Radiology Routine Encounter for screening mammogram for malignant neoplasm of breast 1 Occurrences starting 07/14/2024 until 08/13/2025 [facility] Comment on above: 1 Occurrences starti ng 07/14/2024 until 08/13/2025 [facility] Payers Date Payer Category Payer Self-pay [id number] 2016 Unknown [id number] 2012 Unknown MMO MMO [employer] [id number] 2012-Present [phone] [address] [place] [address] O [id number] 1960 Unknown [id number] 1960 Unknown [id number] 1960 Unknown [id number] 1960 Unknown [id number] 1960 Unknown [id number] [id number] 1960 Unknown [id number] [id number] 1960 Unknown [id number] [id number] 1960 Unknown [id number] [id number] 1960 Unknown [id number] [id number] 1960 Unknown [id number] [id number] 1960 Unknown [id number] [id number] 1960 Unknown [id number] [id number] 1960 Unknown [id number] [id number] 1959 Unknown [id number] Unknown [id number] Social History Date Type Detail Facility Start: 04-25-2014 End: 02-14-2021 Tobacco smoking status NHIS Never smoked tobacco (finding) [facility] [facility] Start: 1960 Sex Assigned At Female F [facility] Start: 04-25-2014 Tobacco use and exposure Smokeless tobacco non-user [facility] Start: 06-17-2021 End: 07-14-2024 Alcohol intake Current non-drinker of alcohol (finding) [facility] Start: 1960 Sex Assigned At Not on file [facility] Start: 06-16-2022 End: 07-16-2023 Sex Assigned At Female [facility] Start: 06-06-2022 End: 06-16-2022 Exposure to SARS-CoV-2 (event) Not sure [facility] Tobacco smoking status Never [facility] Start: 06-16-2022 End: 07-16-2023 History of Social function [facility] Functional Status Date Assessment Result Facility 06-07-2024 Functional Status N/A [facility] 02-29-2024 Functional Status N/A [facility] 08-06-2022 Functional Status N/A [facility] 03-12-2022 Functional Status N/A [facility] Clinical Notes 09-02-2012 to 07-15-2024 Telephone Encounter - Ayala James - 07/15/2024 3:33 PM ESTTelephone Encounter - Ayala James - 07/15/2024 3:33 PM ESTTelephone Encounter - Olivia Oneal RN - 07/15/2024 1:48 PM EST Note Date & Type Note Facility 07-15-2024 Telephone encounter Note Patient has been added to schedule w/ notes documented. Ayala James [facility] 07-15-2024 Miscellaneous Notes Patient has been added to schedule w/ notes documented. Ayala James Discussed results with patient. She verbalized understanding. PSS: Please schedule repeat CA27.29 for 08/11/24 at 4pm. Please put in comments patient gets out of school at 330 may be here before 4.(Patient is already aware of this appointment) BRM: Please sign pending lab order. Klever Oneal RN Called and left a VM message for patient to call back with results and Dr. Sarabia's recommendations. Klever Oneal RN ----- Message from Liborio Sarabia MD sent at 07/15/2024 11:48 AM EST ----- Please inform the patient that surprisingly her tumor marker jumped slightly. Significance is unclear, and I would suggest that we repeat the lab in 4 weeks to document significance. Findings like this typically are false alarms. However, if the lab increases any further typically we would stage to rule out possible recurrence. documented in this encounter [facility] 07-15-2024 Telephone encounter Note Discussed results with patient. She verbalized understanding. PSS: Please schedule repeat CA27.29 for 08/11/24 at 4pm. Please put in comments patient gets out of school at 330 may be here before 4.(Patient is already aware of this appointment) BRM: Please sign pending lab order. Klever Oneal RN [facility] 07-15-2024 Telephone encounter Note Called and left a VM message for patient to call back with results and Dr. Sarabia's recommendations. Klever Oneal RN [facility] 07-15-2024 Telephone encounter Note ----- Message from Liborio Sarabia MD sent at 07/15/2024 11:48 AM [facility] ----- Please inform the patient that surprisingly her tumor marker jumped slightly. Significance is unclear, and I would suggest that we repeat the lab in 4 weeks to document significance. Findings like this typically are false alarms. However, if the lab increases any further typically we would stage to rule out possible recurrence. [facility] 07-13-2024 Note HNO ID: [id number] Author: LIBORIO SARABIA MD Service: ? Author Type: Physician Type: Progress Notes Filed: 07/14/2024 21:26 Note Text: PATIENT NAME: Albert Roberts DATE: 07/14/2024 PRIMARY CARE PHYSICIAN: Dr. Loi Buckner OTHER PHYSICIANS: Dr. Harrison, Dr. White, Dr. Velez Portions of this encounter note have been copied from my note from 07/16/2023 and has been updated where appropriate, and reflect my current medical decision making from today. CC: This is a 64 year old female with a history of breast cancer, seen for scheduled follow-up (prior patient of Dr. Birmingham). INTERIM HISTORY: Since the patient's last visit here she apparently developed kidney stones. Currently asymptomatic with appropriate treatment. Otherwise she has had no significant medical changes. She has noticed no change in her breasts. No unusual pain or other systemic symptoms. MEDICATIONS: KLOR-CON/EF 25 mEq disintegrating tablet CALCIUM CARBONATE/VITAMIN D3 (CALCIUM + D ORAL) Take by mouth. anastrozole (ARIMIDEX) 1 mg tablet TAKE 1 TABLET DAILY (Patient not taking: Reported on 07/14/2024) ALLERGIES: Keflex [Cephalexin] PAST MEDICAL HISTORY: PAST MEDICAL HISTORY Diagnosis Date Breast cancer (HCC) Right; ER+ NV- PAST SURGICAL HISTORY: PAST SURGICAL HISTORY Procedure [...] seizures or tremors. PHYSICAL EXAM: Vitals: BP 151/87 Pulse 66 Temp 36 ?C (96.8 ?F) (Temporal) Resp 16 Ht 165.1 cm (5' 5 ) Wt 58.9 kg (129 lb 13.6 oz) SpO2 100% BMI 21.61 kg/m? Exam limited to gross visualization where [...] findings LABORATORY DATA: Hemoglobin (g/dL) Date Value 07/14/2024 14.2 06/17/2021 13.0 Hematocrit (%) Date Value 07/14/2024 42.0 06/17/2021 39.1 WBC (k/uL) Date Value 07/14/2024 4.58 06/17/2021 5.28 Platelet Count (k/uL) Date Value 07/14/2024 220 06/17/2021 197 RADIOLOGY/OTHER STUDIES: 05/28/2024 Bilateral screening mammogram ([facility]) No mammographic evidence of malignancy.. Routine follow-up in 1 year recommended. 05/28/2024 Bone density DEXA ([facility]) Osteopenia. Max T score -2.4 left femoral neck, left femur, and right femur. ASSESSMENT/PLAN: 1. 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 Status post lumpectomy and sentinel node procedure 01/06/2012. Final pathology: primary tumor 1 cm, 1 of 2 sentinel nodes involved with micrometastases. Postop the patient received adjuvant chemotherapy with docetaxel plus cyclophosphamide ?4 cycles February 2012 through April 2012. She subsequently received adjuvant radiation therapy. Status post adjuvant hormonal therapy with Anastrozole x 9 years May 2012 through June 2021. Currently no evidence disease. At this time would recommend continued routine surveillance. Now that she is more than 12 years out from diagnosis she will follow-up with her PCP for further management. We did not schedule return visit here, but would be happy to see her in the future if we can be of assistance. We will order her next mammogram to be done May 2025. The patient will request that her PCP order subsequent mammograms. 2 Osteoporosis- ICD9: 733.90, ICD10: M85.80 Osteopenia diagnosed September 2015 and the (more content not included)... [facility] 07-13-2024 History of Presen t illness Narrative PATIENT NAME: Albert Roberts DATE: 07/14/2024 PRIMARY CARE PHYSICIAN: Dr. Loi Buckner OTHER PHYSICIANS: Dr. Harrison, Dr. White, Dr. Velez Portions of this encounter note have been copied from my note from 07/16/2023 and has been updated where appropriate, and reflect my current medical decision making from today. CC: This is a 64 year old female with a history of breast cancer, seen for scheduled follow-up (prior patient of Dr. Birmingham). INTERIM HISTORY: Since the patient's last visit here she apparently developed kidney stones. Currently asymptomatic with appropriate treatment. Otherwise she has had no significant medical changes. She has noticed no change in her breasts. No unusual pain or other systemic symptoms. MEDICATIONS: KLOR-CON/EF 25 mEq disintegrating tablet CALCIUM CARBONATE/VITAMIN D3 (CALCIUM + D ORAL) Take by mouth. anastrozole (ARIMIDEX) 1 mg tablet TAKE 1 TABLET DAILY (Patient not taking: Reported on 07/14/2024) ALLERGIES: Keflex [Cephalexin] PAST MEDICAL HISTORY: PAST MEDICAL HISTORY Diagnosis Date Breast cancer (HCC) Right; ER+ NV- PAST SURGICAL HISTORY: PAST SURGICAL HISTORY Procedure [...] seizures or tremors. PHYSICAL EXAM: Vitals: BP 151/87 Pulse 66 Temp 36 C (96.8 F) (Temporal) Resp 16 Ht 165.1 cm (5' 5 ) Wt 58.9 kg (129 lb 13.6 oz) SpO2 100% BMI 21.61 kg/m Exam limited to gross visualization where [...] findings LABORATORY DATA: Hemoglobin (g/dL) Date Value 07/14/2024 14.2 06/17/2021 13.0 Hematocrit (%) Date Value 07/14/2024 42.0 06/17/2021 39.1 WBC (k/uL) Date Value 07/14/2024 4.58 06/17/2021 5.28 Platelet Count (k/uL) Date Value 07/14/2024 220 06/17/2021 197 RADIOLOGY/OTHER STUDIES: 05/28/2024 Bilateral screening mammogram ([facility]) No mammographic evidence of malignancy.. Routine follow-up in 1 year recommended. 05/28/2024 Bone density DEXA ([facility]) Osteopenia. Max T score -2.4 left femoral neck, left femur, and right femur. ASSESSMENT/PLAN: 1. 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 Status post lumpectomy and sentinel node procedure 01/06/2012. Final pathology: primary tumor 1 cm, 1 of 2 sentinel nodes involved with micrometastases. Postop the patient received adjuvant chemotherapy with docetaxel plus cyclophosphamide 4 cycles February 2012 through April 2012. She subsequently received adjuvant radiation therapy. Status post adjuvant hormonal therapy with Anastrozole x 9 years May 2012 through June 2021. Currently no evidence disease. At this time would recommend continued routine surveillance. Now that she is more than 12 years out from diagnosis she will follow-up with her PCP for further management. We did not schedule return visit here, but would be happy to see her in the future if we can be of assistance. We will order her next mammogram to be done May 2025. The patient will request that her PCP order subsequent mammograms. 2 Osteoporosis- ICD9: 733.90, ICD10: M85.80 Osteopenia [...] or starting Evista. The patient requested to hold off on further intervention at this time. Repeat bone density April 2024 slightly improved. For now she will continue observation with a repeat bone density in 2 to 3 years. Liborio Sarabia MD CC: Dr. Buckner documented in this encounter [facility] 06-07-2024 Hospital Discharg e instructions Patient Education 06/07/2024 15:59:18 24-Hour Urine Collection 24-Hour Urine Collection Why am I having this test? A 24-hour urine specimen is a lab test that requires you to collect all of your urine for an entire day. This is sometimes called a timed urine test. It can provide more information than a single urine sample. There are many reasons to have this test. Your health care provider may order the test to check for or monitor the following conditions: High blood pressure. Kidney disease. Kidney stones. Urinary tract infections. . Diabetes. How do I prepare for this test? You may be asked to follow a special diet during or before the collection period. Follow any instructions from your health care provider. If no special instructions are given, you may eat and drink normally. Take envt-rsn-rgoepbs and prescription medicines only as told by your health care provider. Let your health care provider know about any medicines that you are taking, including ilra-bsi-ygbkvku medicines, vitamins, herbs, and supplements. Choose a collection day when you can be at home or when you have a place to store the urine. All urine must be collected during the testing period. How do I do a 24-hour urine collection? When you get up in the morning, urinate in the toilet and flush. Write down the time. This will be your start time on the day of collection and your end time on the next morning. From the start time on, all of your urine should be kept in the collection jug that you received from the lab. If the jug that is given to you already has liquid in it, that is okay. Do not throw out the liquid or rinse out the jug. Urinate into a specimen container, such as a urinal or field that sits over the toilet. Pour the urine from the container into the collection jug. Be careful not to spill any of the urine. Use the equipment provided by the lab. Do not let any toilet paper or stool (feces) get into the jug. This will contaminate the sample. Stop collecting your urine 24 hours after you started. Collect the last specimen as close as possible to the end of the 24-hour period. Keep the jug cool in an ice chest or keep it in the refrigerator during collection. When the 24-hour collection is complete, take the jug to the lab as soon as possible. Keep the jug cool in an ice chest while you are bringing it to the lab. What do the results mean? Talk with your health care provider about what your results mean. Questions to ask your health care provider Ask your health care provider, or the department that is doing the test: When will my results be ready? How will I get my results? What are my treatment options? What other tests do I need? What are my next steps? Summary A 24-hour urine specimen is a lab test that requires you to collect all of your urine for an entire day. When you get up in the morning, urinate in the toilet and flush. Write down the time. For the next 24 hours, collect all of your urine in the collection jug that you received from the lab. Keep the jug cool while collecting the urine and while bringing it back to the lab. Take the jug of urine back to the lab as soon as possible after the collection period has ended. This information is not intended to replace advice given to you by your health care provider. Make sure you discuss any questions you have with your health care provider. Document Revised: 02/28/2022 Document Reviewed: 02/28/2022 [employer] Patient Education 2023 [employer]. 06/07/2024 15:56:06 Kidney Stones, Swou-if-Soio Kidney Stones Kidney stones are rock-like masses that form inside of the kidneys. Kidneys are organs that make pee (urine). A kidney stone may move into other parts of the urinary tract, including: The tubes that connect the kidneys to the bladder (ureters). The bladder. The tube that carries urine out of the body (urethra). Kidney stones can cause very bad pain and can block the flow of pee. The stone usually leaves your body through your pee. A doctor may need to take out the stone. What are the causes? Kidney stones may be caused by: Too much calcium in the body. This may be caused by too much parathyroid hormone in the blood. Uric acid crystals in the bladder. The body makes uric acid when you eat certain foods. Narrowing of one or both of the ureters. A kidney blockage that you were born with. Past surgery on the kidney or the ureters. What increases the risk? You are more likely to develop this condition if: You have had a kidney stone in the past. Other people in your family have had kidney stones. You do not drink enough water. You eat a diet that is high in protein, salt (sodium), or sugar. You are very overweight (obese). What are the signs or symptoms? Symptoms of a kidney stone may include: Pain in the side of the belly, right below the ribs. Pain usually spreads to the groin. Needing to pee often or right away. Pain when peeing. Blood in your pee. Feeling like you may vomit (nauseous). Vomiting. Fever and chills. How is this treated? Treatment depends on the size, location, and makeup of the kidney stones. The stones will often pass out of the body when you pee. You may need to: Drink more fluid to help pass the stone. ?In some cases, you may be given fluids through an IV tube at the hospital. Take medicine for pain. Change your diet to help keep kidney stones from coming back. Sometimes, you may need: A procedure to break up kidney stones using a beam of light (laser) or shock waves. Surgery to remove the kidney stones. Follow these instructions at home: Medicines Take wofv-jgz-muctxlg and prescription medicines only as told by your doctor. Ask your doctor if the medicine prescribed to you requires you to avoid driving or using machinery. Eating and drinking Drink enough fluid to keep your pee pale yellow. ?You may be told to drink at least 8 10 glasses of water each day. This will help you pass the stone. If told by your doctor, change your diet. You may be told to: ?Limit how much salt you eat. ?Eat more fruits and vegetables. ?Limit how much meat, poultry, fish, and eggs you eat. Follow instructions from your doctor about what you may eat and drink. General instructions Collect pee samples as told by your doctor. You may need to collect a pee sample: ?24 hours after a stone comes out. ?8 12 weeks after a stone comes out, and every 6 12 months after that. Strain your pee every time you pee. Use the strainer that your doctor recommends. Do not throw out the stone. Keep it so that it can be tested by your doctor. Keep all follow-up visits. You may need X-rays and ultrasounds to make sure the stone has come out. How is this prevented? To prevent another kidney stone: Drink enough fluid to keep your pee pale yellow. This is the best way to prevent kidney stones. Eat healthy foods. Avoid certain foods as told by your doctor. You may be told to eat less protein. Stay at a healthy weight. Where to find more information National Kidney Foundation (NKF): kidney.org [facility] (UCF): urologyhealth.org Contact a doctor if: You have pain that gets worse or does not get better with medicine. Get help right away if: You have a fever or chills. You get very bad pain. You get new pain in your belly. You faint. You cannot pee. This information is not intended to replace advice given to you by your health care provider. Make sure you discuss any questions you have with your health care provider. Document Revised: 04/17/2023 Document Reviewed: 04/17/2023 [employer] Patient Education 2023 [employer]. Follow Up Care 06/01/2024 11:18:05 With:PATRICIA STRICKLAND, Roland Barksdale, URL Address: [facility] [address] , [place] [phone] When: Unknown [facility] 06-07-2024 Note Patient Education Urology 24-Hour Urine Collection Why am I having this test? A 24-hour urine specimen is a lab test that requires you to collect all of your urine for an entire day. This is sometimes called a timed urine test. It can provide more information than a single urine sample. There are many reasons to have this test. Your health care provider may order the test to check for or monitor the following conditions: ? High blood pressure. ? Kidney disease. ? Kidney stones. ? Urinary tract infections. ? . ? Diabetes. How do I prepare for this test? ? You may be asked to follow a special diet during or before the collection period. Follow any instructions from your health care provider. If no special instructions are given, you may eat and drink normally. ? Take achd-fml-lhmvkcy and prescription medicines only as told by your health care provider. ? Let your health care provider know about any medicines that you are taking, including srjj-ibq-uzgfzgg medicines, vitamins, herbs, and supplements. ? Choose a collection day when you can be at home or when you have a place to store the urine. All urine must be collected during the testing period. How do I do a 24-hour urine collection? ? When you get up in the morning, urinate in the toilet and flush. Write down the time. This will be your start time on the day of collection and your end time on the next morning. ? From the start time on, all of your urine should be kept in the collection jug that you received from the lab. ? If the jug that is given to you already has liquid in it, that is okay. Do not throw out the liquid or rinse out the jug. ? Urinate into a specimen container, such as a urinal or field that sits over the toilet. Pour the urine from the container into the collection jug. Be careful not to spill any of the urine. Use the equipment provided by the lab. ? Do not let any toilet paper or stool (feces) get into the jug. This will contaminate the sample. ? Stop collecting your urine 24 hours after you started. Collect the last specimen as close as possible to the end of the 24-hour period. ? Keep the jug cool in an ice chest or keep it in the refrigerator during collection. ? When the 24-hour collection is complete, take the jug to the lab as soon as possible. Keep the jug cool in an ice chest while you are bringing it to the lab. What do the results mean? Talk with your health care provider about what your results mean. Questions to ask your health care provider Ask your health care provider, or the department that is doing the test: ? When will my results be ready? ? How will I get my results? ? What are my treatment options? ? What other tests do I need? ? What are my next steps? Summary ? A 24-hour urine specimen is a lab test that requires you to collect all of your urine for an entire day. ? When you get up in the morning, urinate in the toilet and flush. Write down the time. For the next 24 hours, collect all of your urine in the collection jug that you received from the lab. ? Keep the jug cool while collecting the urine and while bringing it back to the lab. ? Take the jug of urine back to the lab as soon as possible after the collection period has ended. This information is not intended to replace advice given to you by your health care provider. Make sure you discuss any questions you have with your health care provider. Document Revised: 02/28/2022 Document Reviewed: 02/28/2022 [employer] Patient Education ? 2023 [employer]. Kidney Stones Kidney stones are rock-like masses that form inside of the kidneys. Kidneys are organs that make pee (urine). A kidney stone may move into other parts of the urinary tract, including: ? The tubes that connect the kidneys to the bladder (ureters). ? The bladder. ? The tube that carries urine out of the body (urethra). Kidney stones can cause very bad pain and can block the flow of pee. The stone usually leaves your body through your pee. A doctor may need to take out the stone. What are the causes? Kidney stones may be caused by: ? Too much calcium in the body. This may be caused by too much parathyroid hormone in the blood. ? Uric acid crystals in the bladder. The body makes uric acid when you eat certain foods. ? Narrowing of one or both of the ureters. ? A kidney blockage that you were born with. ? Past surgery on the kidney or the ureters. What increases the risk? You are more likely to develop this condition if: ? You have had a kidney stone in the past. ? Other people in your family have had kidney stones. ? You do not drink enough water. ? You eat a diet that is high in protein, salt (sodium), or sugar. ? You are very overweight (obese). What are the signs or symptoms? Symptoms of a kidney stone may include: ? Pain in the side of the belly, right below the ribs. Pain usually spreads to (more content not included)... [facility] 05-20-2024 Telephone encounter Note [facility] called for DX code to be added to screening mammogram order. Z12.31 added and faxed to requested # [phone]. Pt is scheduled next week. Audra Andrews RN [facility] 05-20-2024 Miscellaneous Notes [facility] called for DX code to be added to screening mammogram order. Z12.31 added and faxed to requested # [phone]. Pt is scheduled next week. Audra Andrews RN documented in this encounter [facility] 02-29-2024 Hospital Discharg e instructions Patient [...] include: ?8 oz (237 mL) of milk, tsnqlyp-ysmezefqlydd-toewf milk, and calcium-fortifiedfruit juice. Calcium-fortified means that [...] ?Spinach (cooked), rhubarb, beets, sweet potatoes, and [place] chard. ?Peanuts. ?Potato chips, [place] fries, and baked potatoes with skin on. ?Nuts and nut products. ?Chocolate. If you regularly take a diuretic medicine, make sure to eat at least 1 or 2 servings of fruits or vegetables that are high in potassium each day. These include: ?Avocado. ?Banana. ?Vigo, prune, carrot, or tomato juice. ?Baked potato. [...] magnesium, fish oil, or vitamin B6. Take rkya-stw-aqnghqd and prescription medicines only as told by [...] Casseroles. Pizza. Lasagna. Frozen meals. Potato chips. [place] fries. The items listed above may not [...] provider. Document Revised: 12/04/2022 Document Reviewed: 12/04/2022 [employer] Patient Education 2022 [employer]. Follow Up Care 08/06/2022 16:16:25 With:PATRICIA STRICKLAND, Roland Barksdale, URL Address: [facility] [address], [place] [phone] When: Unknown Comments:1 yr w/ PATRICIA [facility] 07-17-2023 Evaluation note Encounter Date Diagnosis Assessment Notes Jul, Malignant neoplasm of upper-outer quadrant of right female breast (ICD-10 - C50.411) Lumpectomy 2011, adjuvent chemotherapy, adjuvent radiation therapy, completed 9 years hormone therapy Jul, Estrogen receptor positive status [ER+] (ICD-10 - Z17.0) [employer] Other [id number] Nurse Note* Akua Jorge MA - 07/16/2023 3:02 PM EST Patient would like opinion on right hand pinky finger she has a bump her PCP looked at it said it was probably a cyst but she would still like your opinion, it has not changed at all. Akua Jorge MA documented in [facility] History of Present illness Narrative* Liborio [...] Diagnosis Date Breast cancer (HCC) Right; ER+ NV- PAST SURGICAL HISTORY: PAST SURGICAL HISTORY Procedure [...] 197 RADIOLOGY/OTHER STUDIES: 05/04/2023 Bilateral diagnostic mammogram ([facility]) Stable postsurgical change in the right breast. No mammographic evidence of malignancy.. Routine follow-up in 1 year recommended. 05/02/2022 Bone density DEXA ([facility]) Osteoporosis. Max T score -2.6 left femoral neck, left femur, and right femur. ASSESSMENT/PLAN: 1. 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 Buckner documented in this encounterKeenan [facility]10-[facility]23 Evaluation note* Encounter Date Diagnosis Assessment [...] to the patient. Recommend referral for excision. [employer] Other 08-21-2023 Miscellaneous Notes* Telephone Encounter - Ayala James - 04/27/2023 4:23 PM EDT Received order at front desk auxiliary. Faxed order April 27, 2023 4:23 PM Ayala James * Telephone Encounter - Sheila Muir - 04/27/2023 2:22 PM EDT Will fax over order karen Camarena * Telephone Encounter - Dipti Baumann RN - 04/27/2023 1:14 PM EDT Patient is scheduled for aida diagnostic memo. Per their protocol since she is so far out from diagnosis they need a aida screening ordered with a screening dx. Dipti Baumann RN ' BRM: Order pended for signature. PSS: Please fax to [phone] Thanks. Dipti Baumann RN documented in this encounterKeenan [facility] Hospital02-21-2023 Evaluation note* Encounter Date Diagnosis Assessment [...] to ER immediately, Conjunctivitis material was printed [employer] Other 11-30-2022 Hospital Discharge instructions Patient [...] include: ?Spinach. ?Rhubarb. ?Beets. ?Potato chips and citizen of [place] fries. ?Nuts. If you regularly take a diuretic medicine, make sure to eat at least 1 2 fruits or vegetables high in potassium each day. These include: ?Avocado. ?Banana. ?Vigo, prune, carrot, or tomato juice. ?Baked potato. [...] Casseroles. Pizza. Lasagna. Frozen meals. Potato chips. [place] fries. Summary You can reduce your risk [...] 12/19/2011 Document Revised: 12/14/2019 Document Reviewed: 08/04/2017 [employer] Patient Education 2019 [employer]. Follow Up Care 04/30/2022 15:39:48 With:PATRICIA STRICKLAND, Roland Barksdale, URL Address: [facility] [address] [place] [address]- When: Unknown [facility] 10-10-2022 History of Present illness [...] Diagnosis Date Breast cancer (HCC) Right; ER+ NV- PAST SURGICAL HISTORY: PAST SURGICAL HISTORY Procedure [...] 197 RADIOLOGY/OTHER STUDIES: 05/02/2022 Bone density DEXA ([facility]) Osteoporosis. Max T score -2.6 left femoral neck, left femur, and right femur. And left femur 05/02/2022 Bilateral diagnostic mammogram ([facility]) Stable postsurgical change in the right breast. No mammographic evidence of malignancy or significant change. Routine follow-up in 1 year recommended. ASSESSMENT/PLAN: 1. 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 Buckner documented in this encounterKeenan [facility]07-[facility]22 Hospital Discharge instructions Patient Education 03/12/2022 [...] Follow these instructions at home: Medicines Take qsor-fiq-mzbrrew and prescription medicines only as told by [...] 08/24/2006 Document Revised: 01/10/2020 Document Reviewed: 01/10/2020 [employer] Patient Education 2019 [employer]. Follow Up Care 02/13/2022 09:45:15 With:PATRICIA STRICKLAND, Roland Barksdale, URL Address: [facility] [address] , [place] [address]- When:3 months Comments:w/metabolic workup [facility] 05-23-2022 Miscellaneous Notes* Telephone Encounter - Ryan Daniels APRN.CNP - 01/27/2022 4:44 PM EDT The following approved medication requests have been refused. Refused Prescriptions Disp Refills anastrozole (ARIMIDEX) 1 mg tablet [Pharmacy Med Name: ANASTROZOLE TABS 1MG] 90 tablet 3 Sig: TAKE 1 TABLET DAILY OFELIA: No Refused By: RYAN DANIELS Reason for Refusal: A Refill not appropriate Ryan Daniels APRN.CNP documented in this encounterKeenan [facility] Hospital12-27-2012 History of Past illness Narrative* Problem Noted Date Resolved Date Breast CA 09/02/2012 09/16/2018 Overview: Right; ER+ NV-; HER2 - documented as of this encounter (statuses as of 01/28/2022) [facility] of Past illness Narrative* Problem Noted Date Resolved Date Breast CA 09/02/2012 09/16/2018 Overview: Right; ER+ NV-; HER2 - documented as of this encounter (statuses as of 06/17/2022) [facility] of Past illness Narrative* Problem Noted Date Diagnosed Date Resolved Date Breast CA 09/02/2012 09/16/2018 Overview: Right; ER+ NV-; HER2 - documented as of this encounter (statuses as of 04/28/2023) [facility] of Past illness Narrative* Problem Noted Date Diagnosed Date Resolved Date Breast CA 09/02/2012 09/16/2018 Overview: Right; ER+ NV-; HER2 - documented as of this encounter (statuses as of 07/17/2023) [facility] Future Appointments Appointment Date:06/23/2022 03:00:00 PM Scheduled Provider:Roland VELEZ MD Location:[facility] Appointment Type:URO Office Visit [facility] Evaluation + Plan note Future Appointments Appointment Date:08/10/2023 02:45:00 PM Scheduled Provider:Roland VELEZ MD Location:[facility] Appointment Type:URO Office Visit [facility] Evaluation + Plan note Future Appointments Appointment Date:03/03/2025 08:45:00 AM Scheduled Provider:Roland VELEZ MD Location:[facility] Appointment Type:URO Office Visit [facility] evaluation + Plan note Future Appointments Appointment Date:08/30/2024 09:00:00 AM Scheduled Provider:DIPTI TOVAR PA-C Location:[facility] Appointment Type:URO Office Visit Appointment Date:03/03/2025 08:45:00 AM Scheduled Provider:Rol[facility]Z [facility] Office Visit [facility] Evaluation noteNo assessment information available [facility] Diagnosis Malignant neoplasm of upper-outer quadrant of right breast in female, estrogen receptor positive (HCC)- Primary Age-related osteoporosis without current pathological fracture Senile osteoporosis documented in this encounter [facility] note* Diagnosis Encounter for screening mammogram for malignant neoplasm of breast- Primary Other screening mammogram documented in this encounter [facility] note* Diagnosis Malignant neoplasm of upper-outer quadrant of right breast in female, estrogen receptor positive (HCC)- Primary Age-related osteoporosis without current pathological fracture Senile osteoporosis documented in this encounter [facility] note* Diagnosis Malignant neoplasm of upper-outer quadrant of right breast in female, estrogen receptor positive (HCC)- Primary Encounter for screening mammogram for malignant neoplasm of breast Other screening mammogram documented in this encounter [facility] note* Diagnosis Malignant neoplasm of upper-outer quadrant of right breast in female, estrogen receptor positive (HCC)- Primary documented in this encounter [facility] general Narrative - Reported* Type Description Date Medical History Breast cancer Surgical History appendectomy Surgical History tonsillectomy Surgical History lumpectomy, right breast x2 201 2 Hospitalization History see above surgical histo [facility] Other History general Narrative - Reported* Type Description Date Medical History Breast cancer Medical History Nephrolithiasis Medical History Osteopenia of lumbar spine Surgical History appendectomy Surgical History tonsillectomy Surgical History lumpectomy, right breast x2 201 2 Hospitalization History see above surgical histo [facility] Other Hospital course Narrative No data available for this section [facility] note No data available for this section [facility] Reason for referral (narrative)* Diagnostic Procedure Only (Routine) - Pending Review Specialty Diagnoses / Procedures Referred By Contac t Referred To Contact [facility] Diagnoses Malignant neoplasm of upper-outer quadrant of right breast in female, estrogen receptor positive (HCC) Procedures MEMO DIAGNOSTIC BILAT DIAGNOSTIC MAMMOGRAPHY COMPUTER-AIDED DETCJ Liborio Miranda MD [address] [place] [address] [place] [address] [facility] [address] [place] [phone] Referral ID Status Reason Start Date Expiration Date Visits Requested Visits Authorized [id number] Pending Review Auto-Generat ed Referral 07/16/2023 1 1 [facility] for referral (narrative)* Diagnostic Procedure Only (Routine) - Pending Review Specialty Diagnoses / Procedures Referred By Contac t Referred To Contact [facility] Diagnoses Encounter for screening mammogram for malignant neoplasm of breast Procedures MEMO SCREENING SCREENING MAMMOGRAPHY BI 2-VIEW BREAST INC Liborio Chau MD [address] [place] [address] [place] [address] [facility] [address] [place] [address] Referral ID Status Reason Start Date Expiration Date Visits Requested Visits Authorized [id number] Pending Review Auto-Generat ed Referral 04/27/2023 05/26/2024 1 1 [facility] for referral (narrative)* Diagnostic Procedure Only (Routine) - Pending Review Specialty Diagnoses / Procedures Referred By Contac t Referred To Contact XR IMAGING Diagnoses Age-related osteoporosis without current pathological fracture Malignant neoplasm of upper-outer quadrant of right breast in female, estrogen receptor positive (HCC) Procedures DXA-FOREARM SKELETON DXA BONE DENSITY STUDY 1/>SITES APPENDICLR Liborio Morales MD [address] [place] [address] [place] [address] [place] [address] Referral ID Status Reason Start Date Expiration Date Visits Requested Visits Authorized [id number] Pending Review Auto-Generat ed Referral 07/16/2023 08/14/2024 [...] BI 2-VIEW BREAST INC Liborio Chau MD [address] [place] [address] [place] [address] [facility] [address] [place] [address] Referral ID Status Reason Start Date Expiration Date Visits Requested Visits Authorized [id number] Pending Review Auto-Generat ed Referral 07/16/2023 08/14/[address] [facility] Diagnostic Procedure Only (Routine) - New Request Specialty Diagnoses / Procedures Referred By Contac t Referred To Contact [facility] Diagnoses Encounter for screening mammogram for malignant neoplasm of breast Procedures MEMO SCREENING SCREENING MAMMOGRAPHY BI 2-VIEW BREAST INC CAD Liborio Sarabia MD [address] [place] [address] [place] [address] [facility] [address] [place] [address] Referral ID Status Reason Start Date Expiration Date Visits Requested Visits Authorized [id number] New Request Auto-Generat ed Referral 07/14/2024 08/13/[address] [facility] Chief Complaint and Reason for Visit [...] may be documented in an alternate section No data available for this section Source Comments (unrecognize d section and content) In the event this informatio n is protected by the Federal Confidentiality of Alcohol and Drug Abuse Patient Records regulations: The Federal rules restrict any use of the information to criminally investigate or prosecute any alcohol or drug abuse patient.[facility] HospitalIn the event this information is protected by the Federal Confidentiality of Alcohol and Drug Abuse Patient Records regulations: The Federal rules restrict any use of the information to criminally investigate or prosecute any alcohol or drug abuse patient.[facility] HospitalIn the event this information is protected by the Federal Confidentiality of Alcohol and Drug Abuse Patient Records regulations: The Federal rules restrict any use of the information to criminally investigate or prosecute any alcohol or drug abuse patient.[facility] HospitalIn the event this information is protected by the Federal Confidentiality of Alcohol and Drug Abuse Patient Records regulations: The Federal rules restrict any use of the information to criminally investigate or prosecute any alcohol or drug abuse patient.[facility] HospitalIn the event this information is protected by the Federal Confidentiality of Alcohol and Drug Abuse Patient Records regulations: The Federal rules restrict any use of the information to criminally investigate or prosecute any alcohol or drug abuse patient.[facility] HospitalIn the event this information is protected by the Federal Confidentiality of Alcohol and Drug Abuse Patient Records regulations: The Federal rules restrict any use of the information to criminally investigate or prosecute any alcohol or drug abuse patient.[facility] HospitalIn the event this information is protected by the Federal Confidentiality of Alcohol and Drug Abuse Patient Records regulations: The Federal rules restrict any use of the information to criminally investigate or prosecute any alcohol or drug abuse patient.[facility] HospitalIn the event this information is protected by the Federal Confidentiality of Alcohol and Drug Abuse Patient Records regulations: The Federal rules restrict any use of the information to criminally investigate or prosecute any alcohol or drug abuse patient.[facility] HospitalIn the event this information is protected by the Federal Confidentiality of Alcohol and Drug Abuse Patient Records regulations: The Federal rules restrict any use of the information to criminally investigate or prosecute any alcohol or drug abuse patient.[facility] Reason for Visit (unrecogniz ed section and content) Reason Comments Refill Request Reason Comments Breast Cancer Reason Comments Orders Reason Comments Breast Cancer 1 year follow up Reason Comments DX code for screening mammogram needed Reason Comments Breast Cancer Follow up Care Teams (unrecognized sec tion and content) [employer] Relationship Specialty Start Date End Date Samm Palmer PCP - General Family Practice 01/15/12 [employer] Bo[employer] Inspector Relationship Specialty Start Date End Date Juma Buckner DO [address] [place] [address] PCP - General Internal Medicine 06/16/22 [employer] Bo[employer] Inspector Relationship Specialty Start Date End Date Juma Buckner DO [address] [place] [address] PCP - General Internal Medicine 06/16/22 [employer] Boards Inspector Relationship Specialty Start Date End Date Juma Buckner DO [address] [place] [address] PCP - General Internal Medicine 06/16/22 Team [...] Attending Provider Active Start: April 13, 2024 [employer] Boards Inspector Relationship Specialty Start Date End Date Juma Buckner DO [address] [place] [address] PCP - General Internal Medicine 06/16/22 [employer] Boards Inspector Relationship Specialty Start Date End Date Juma Buckner DO [address] [place] [address] PCP - General Internal Medicine 06/16/22 [employer] Boards Inspector Relationship Specialty Start Date End Date Juma Buckner DO [address] [place] [address] PCP - General Internal Medicine 06/16/22 [employer] Boards Inspector Relationship Specialty Start Date End Date Juma Buckner DO [address] [place] [address] PCP - General Internal Medicine 06/16/22 INFORMATION SOURCE (unrecogn ized section and content) DATE CREATED AUTHOR 04/08/2022 [facility] DATE CREATED AUTHOR AUTHOR'S ORGANIZ ATION 04/20/2024 [facility] DATE CREATED AUTHOR AUTHOR'S ORGANIZ ATION 05/30/2024 [facility] DATE CREATED AUTHOR AUTHOR'S ORGANIZ ATION 06/09/2024 [facility] DATE CREATED AUTHOR AUTHOR'S ORGANIZ ATION 07/18/2024 [facility] FOR RECORDS PERTAINING TO PATIENTS WHO [...] BE BASED ON THE PRIMARY CLINICAL RECORDS. [facility]. provides no warranty or guarantee of the accuracy or completeness of information in this document.
--- OUTSIDE RECORDS SUMMARY | 2024-08-01 07:56 | XMS_ITS | CCD ---
Author Organization [facility] Care Team Providers Care Glass Etcher Name Role Phone Adrian Oneal Jr Attending Provider Juma Buckner Primary Care Provider Samm Palmer Primary Care Provider [phone] JUMA BUCKNER Primary Care Physician [phone] PATRICIA, DR WATKINS Admitting Unavailable VELEZ, DR [...] (antibiotic) (1 source) Cephalexin Drug Allergy 1 [facility] (17 sources) Cephalexin; Translations: [cephalexin] Drug Allergy 7 Unknown, Weal (disorder) [facility] (5 sources) Cephalexin; Translations: [Keflex] Drug Allergy [facility] Repository (1 source) Cephalexin Drug Allergy 3 [facility] Repository Medications Current Medications Medication Drug [...] Antibacterial, Polymyxin-class Antibacterial, Corticosteroid Start: 10-28-2022 Maxitrol 3.5-96728-8.1 apply directly under left eyelashes Ophthalmic Three [...] for 30 day(s), 120 tab(s), [facility](s) , [id number], 165, cm, 02/29/24 11:29:00 EDT, Height/Length Dosing, [...] BID, # 180 tab(s), Refills(s) 3, Pharmacy: [facility] #[id number], 165, cm, 08/06/22 15:18:00 EST, Height/Length Dosing, [...] Test Name Value Interpretation Reference Range Facility [facility] 07-15-2024 CNPN Telephone (HEMTSA) ALBERT ROBERTS ([id number]) 1960 F Date Time Provider Department 07/15/24 [facility] During your visit today, we recorded the [...] positive (HCC) [C50.411, Z17.0] Order(s):CA 27.29 BLOOD [[id number]] Order #: [id number] FUTURE Prescriptions as of 07/17/2024 - KLOR-CON/EF [...] Status:Closed by LIBORIO SARABIA on 07/17/24 Normal [facility] CBC W Auto Differential pane l (Bld)on 07-14-2024 Basophils (Bld) [#/Vol] 0.04 10*3/uL [facility] Basophils/100 WBC (Bld) 0.9 % [facility] Differential cell count method Nom (Bld) Auto [facility] Eosinophils (Bld) [#/Vol] 0.13 10*3/uL [facility] Eosinophils/100 WBC (Bld) 2.8 % [facility] Erythrocyte distribution width (RBC) [Ratio] 12.6 % 11.5 - 15.0 % [facility] Hematocrit (Bld) [Volume fraction] 42.0 % 36.0 - 46.0 % [facility] Hemoglobin (Bld) [Mass/Vol] 14.2 g/dL 11.5 - 15.5 g/dL [facility] Immature granulocytes (Bld) [#/Vol] [facility] Immature granulocytes/100 WBC (Bld) 0.2 % [facility] Lymphocytes (Bld) [#/Vol] 1.22 10*3/uL [facility] Lymphocytes/100 WBC (Bld) 26.6 % [facility] MCH (RBC) [Entitic mass] 30.9 pg 26.0 - 34.0 pg [facility] MCHC (RBC) [Mass/Vol] 33.8 g/dL 30.5 - 36.0 g/dL [facility] MCV (RBC) [Entitic vol] 91.5 fL 80.0 - 100.0 fL [facility] Monocytes (Bld) [#/Vol] 0.47 10*3/uL [facility] Monocytes/100 WBC (Bld) 10.3 % [facility] Neutrophils (Bld) [#/Vol] 2.71 10*3/uL [facility] Neutrophils/100 WBC (Bld) 59.2 % [facility] Nucleated RBC (Bld) [#/Vol] [facility] Nucleated RBC/100 WBC (Bld) [Ratio] 0.0 % /100 WBC [facility] Platelet mean volume (Bld) [Entitic vol] 10.6 fL 9.0 - 12.7 fL [facility] Platelets (Bld) [#/Vol] 220 10*3/uL [facility] RBC (Bld) [#/Vol] 4.59 10*6/uL 3.90 - 5.2 0 m/uL [facility] WBC (Bld) [#/Vol] 4.58 10*3/uL [facility] Basophils (Bld) [#/Vol] 0.04 10*3/uL Normal <0.11 [facility] Comment on above: Order Comment: Speci men Type: BLOOD SPECIMEN [facility] Facility[facility] Address: [address] [place], [place] [address] Performed By: #### 5 7021-8 #### [facility] CLIA [id number] [address] [place] [address] 21736 Basophils/100 WBC (Bld) 0.9 % Normal [facility] Comment on above: Order Comment: Speci men Type: BLOOD SPECIMEN Ordering Facility: [facility] Address: [address] [place] [address] Performed By: #### 5 7021-8 #### [facility] CLIA [id number] [address] [place] [address] 37175 Differential cell count method Nom (Bld) Auto Normal [facility] Comment on above: Order Comment: Speci men Type: BLOOD SPECIMEN [facility] Address: [address] [place] [address] Performed By: #### 5 7021-8 #### [facility] CLIA [id number] [address] [place] [address] 32856 Eosinophils (Bld) [#/Vol] 0.13 10*3/uL Normal <0.46 [facility] Comment on above: Order Comment: Speci men Type: BLOOD SPECIMEN [facility]: [facility] Address: [address] [place] [address] Performed By: #### 5 7021-8 #### [facility] CLIA [id number] [address] [place] [address] 89946 Eosinophils/100 WBC (Bld) 2.8 % Normal [facility] Comment on above: Order Comment: Speci men Type: BLOOD SPECIMEN [facility]: [facility] Address: [address] [place] [address] Performed By: #### 5 7021-8 #### [facility] CLIA [id number] [address] [place] [address]122 Erythrocyte distribution width (RBC) [Ratio] 12.6 % Normal 11.5-15.0 [facility] Comment on above: Order Comment: Speci men Type: BLOOD SPECIMEN [facility] Address: [address] [place] [address] Performed By: #### 5 7021-8 #### [facility] CLIA [id number] [address] [place] [address] Hematocrit (Bld) [Volume fraction] 42.0 % Normal 36.0-46.0 [facility] Comment on above: Order Comment: Speci men Type: BLOOD SPECIMEN [facility] Address: [address] [place] [address] Performed By: #### 5 7021-8 #### [facility] CLIA [id number] [address] [place] [address]32 Hemoglobin (Bld) [Mass/Vol] 14.2 g/dL Normal 11.5-15.5 [facility] Comment on above: Order Comment: Speci men Type: BLOOD SPECIMEN [facility] Address: [address] [place] [address] Performed By: #### 5 7021-8 #### [facility] CLIA [id number] [address] [place] [address] 53525 Immature granulocytes (Bld) [#/Vol] 10*3/uL Normal <0.10 [facility] Comment on above: Order Comment: Speci men Type: BLOOD SPECIMEN [facility] Address: [address] [place] [address] Performed By: #### 5 7021-8 #### [facility] CLIA [id number] [address] [place] [address] 21294 Immature granulocytes/100 WBC (Bld) 0.2 % Normal [facility] Comment on above: Order Comment: Speci men Type: BLOOD SPECIMEN [facility] Address: [address] [place] [address] Performed By: #### 5 7021-8 #### [facility] CLIA [id number] [address] [place] [address] 99370 Lymphocytes (Bld) [#/Vol] 1.22 10*3/uL Normal 1.00-4.00 [facility] Comment on above: Order Comment: Speci men Type: BLOOD SPECIMEN Order[facility] Facility[facility] Address: [address] [place] [address] Performed By: #### 5 7021-8 #### [facility] CLIA [id number] [address] [place] [address] 38221 Lymphocytes/100 WBC (Bld) 26.6 % Normal [facility] Comment on above: Order Comment: Speci men Type: BLOOD SPECIMEN [facility] Address: [address] [place] [address] Performed By: #### 5 7021-8 #### [facility] CLIA [id number] [address] [place] [address] 65529 MCH (RBC) [Entitic mass] 30.9 pg Normal 26.0-34.0 [facility] Comment on above: Order Comment: Speci men Type: BLOOD SPECIMEN [facility] Address: [address] [place] [address] Performed By: #### 5 7021-8 #### [facility] CLIA [id number] [address] [place] [address] 11254 MCHC (RBC) [Mass/Vol] 33.8 g/dL Normal 30.5-36.0 [facility] Comment on above: Order Comment: Speci men Type: BLOOD SPECIMEN [facility] Address: [address] [place] [address] Performed By: #### 5 7021-8 #### [facility] CLIA [id number] [address] [place] [address] 02998 MCV (RBC) [Entitic vol] 91.5 fL Normal 80.0-100.0 [facility] Comment on above: Order Comment: Speci men Type: BLOOD SPECIMEN [facility] Address: [address] [place] [address] Performed By: #### 5 7021-8 #### [facility] CLIA [id number] [address] [place] [address] 30613 Monocytes (Bld) [#/Vol] 0.47 10*3/uL Normal <0.87 [facility] Comment on above: Order Comment: Speci men Type: BLOOD SPECIMEN [facility] Address: [address] [place] [id number] Performed By: #### 5 7021-8 #### [facility] CLIA [id number] [address] [place] [address] 77473 Monocytes/100 WBC (Bld) 10.3 % Normal [facility] Comment on above: Order Comment: Speci men Type: BLOOD SPECIMEN [facility] Address: [address] [place] [address] Performed By: #### 5 7021-8 #### [facility] CLIA [id number] [address] [place] [address] 00650 Neutrophils (Bld) [#/Vol] 2.71 10*3/uL Normal 1.45-7.50 [facility] Comment on above: Order Comment: Speci men Type: BLOOD SPECIMEN [facility] Address: [address] [place] [address] Performed By: #### 5 7021-8 #### [facility] CLIA [id number] [address] [place] [address] 63688 Neutrophils/100 WBC (Bld) 59.2 % Normal [facility] Comment on above: Order Comment: Speci men Type: BLOOD SPECIMEN [facility] Address: [address] [place] [address] Performed By: #### 5 7021-8 #### [facility] CLIA [id number] [address] [place] [address] 21992 Nucleated RBC (Bld) [#/Vol] 10*3/uL Normal <0.01 [facility] Comment on above: Order Comment: Speci men Type: BLOOD SPECIMEN [facility] Address: [address] [place] [address] Performed By: #### 5 7021-8 #### [facility] CLIA [id number] [address] [place] [address] Nucleated RBC/100 WBC (Bld) [Ratio] 0.0 /100 WBC Normal [facility] Comment on above: Order Comment: Speci men Type: BLOOD SPECIMEN [facility] Address: [address] [place] [address] Performed By: #### 5 7021-8 #### [facility] CLIA [id number] [address] [place] [address] Platelet mean volume (Bld) [Entitic vol] 10.6 fL Normal 9.0-12.7 [facility] Comment on above: Order Comment: Speci men Type: BLOOD SPECIMEN [facility] Address: [address] [place] [address] Performed By: #### 5 7021-8 #### [facility] CLIA [id number] [address] [place] [address] 41560 Platelets (Bld) [#/Vol] 220 10*3/uL Normal 150-400 [facility] Comment on above: Order Comment: Speci men Type: BLOOD SPECIMEN [facility] Address: [address] [place] [address] Performed By: #### 5 7021-8 #### [facility] CLIA [id number] [address] [place] [address] RBC (Bld) [#/Vol] 4.59 10*6/uL Normal 3.90-5.20 [facility] Comment on above: Order Comment: Speci men Type: BLOOD SPECIMEN [facility] Address: [address] [place] [address] Performed By: #### 5 7021-8 #### [facility] CLIA [id number] [address] [place] [address] WBC (Bld) [#/Vol] 4.58 10*3/uL Normal 3.70-11.00 [facility] Comment on above: Order Comment: Speci men Type: BLOOD SPECIMEN [facility] Address: [facility], [place] [address] Performed By: #### 5 7021-8 #### [facility] CLIA [id number] [address] [place] [address] 95524 CNOVSPon 07-14-2024 CNOVSP Visit (SP) Office (HEMASA) LOISALBERT MORENO ([id number]) 1960 F Date Time Provider Department 07/14/24 [...] Diagnosis Date Breast cancer (HCC) Right; ER+ NE- PAST SURGICAL HISTORY: PAST SURGICAL HISTORY Procedure [...] 197 RADIOLOGY/OTHER STUDIES: 05/28/2024 Bilateral screening mammogram ([facility]) No mammographic evidence of malignancy.. Routine follow-up in 1 year recommended. 05/28/2024 Bone density DEXA ([facility]) Osteopenia. Max T score -2.4 left femoral neck, left femur, and right femur. ASSESSMENT/PLAN: 1. 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 Normal [facility] Cancer Ag27-29 SerPl-aCncon 07-14-2024 Cancer Ag 27-29 Qn 48.5 [arb'U]/mL High <38.6 [facility] Comment on above: Order Comment: Speci men Type: BLOOD SPECIMEN [facility] Address: [address] [place] [address] Result Comment: The CA27.29 test was performed using the Siemens Undertoneaur XP chemiluminometric immunoassay method. Results obtained with different assay methods or kits cannot be used interchangeably. Performed By: #### 1 7842-6 #### [facility] CLIA [id number] [address] [place] [address] [place] [address] [place] Comprehensive metabolic 2000 panelOrdered By: Lisa Mayes on 07-14-2024 Albumin [Mass/Vol] 4.6 g/dL 3.9 - 4.9 g/dL [facility] ALP [Catalytic activity/Vol] 87 U/L 34 - 123 U/L [facility] ALT [Catalytic activity/Vol] 14 U/L 7 - 38 U/L [facility] Anion gap [Moles/Vol] 11 mmol/L 8 - 15 mmol/L [facility] AST [Catalytic activity/Vol] 23 U/L 13 - 35 U/L [facility] Bilirubin [Mass/Vol] 0.4 mg/dL 0.2 - 1 .3 mg/dL [facility] Calcium [Mass/Vol] 9.7 mg/dL 8.5 - 10. 2 mg/dL [facility] Chloride [Moles/Vol] 102 mmol/L 98 - 10 7 mmol/L [facility] CO2 [Moles/Vol] 27 mmol/L 22 - 30 mmol/L [facility] Creatinine [Mass/Vol] 0.95 mg/dL 0.58 - 0.96 mg/dL [facility] GFR/1.73 sq M.predicted among non-blacks MDRD (S/P/Bld) [Vol rate/Area] 67 mL/min/{1.73_m2} - PINF [facility] Comment on above: Estimated Glomerular Filtration [...] [Mass/Vol] 97 mg/dL 74 - 99 mg/dL [facility] Comment on above: The [place] Diab[employer] Association (ADA) provides guidance for [...] Standards of Medical Care in Diabetes 2016, [place] [employer]. Diabetes Care. 2016.39(Suppl 1). Interpretation and review of laboratory results Normal [facility] Potassium [Moles/Vol] 4.2 mmol/L 3.7 - 5.1 mmol/L [facility] Protein [Mass/Vol] 6.6 g/dL 6.3 - 8.0 g/dL [facility] Sodium [Moles/Vol] 140 mmol/L 136 - 144 mmol/L [facility] Urea nitrogen [Mass/Vol] 20 mg/dL 7 - 21 mg/dL [facility] Comprehensive metabolic 2000 panelon 07-14-2024 Albumin [Mass/Vol] 4.6 g/dL Normal 3.9-4.9 [facility] Comment on above: Order Comment: Speci men Type: BLOOD SPECIMEN [facility] Address: [address] [place] [address] Performed By: #### 2 4323-8 #### [facility] CLIA [id number] [address] [place] [address]7784 ALP [Catalytic activity/Vol] 87 U/L Normal 34-123 [facility] Comment on above: Order Comment: Speci men Type: BLOOD SPECIMEN [facility] Address: [address] [place] [address] Performed By: #### 2 4323-8 #### [facility] CLIA [id number] [address] [place] [address] 92095 ALT [Catalytic activity/Vol] 14 U/L Normal 7-38 [facility] Comment on above: Order Comment: Speci men Type: BLOOD SPECIMEN [facility] Address: [address] [place] [address] Performed By: #### 2 4323-8 #### [facility] CLIA [id number] [address] [place] [address] Anion gap [Moles/Vol] 11 mmol/L Normal 8-15 [facility] Comment on above: Order Comment: Speci men Type: BLOOD SPECIMEN [facility] Address: [address] [place] [address] Performed By: #### 2 4323-8 #### [facility] CLIA [id number] [address] [place] [address] AST [Catalytic activity/Vol] 23 U/L Normal 13-35 [facility] Comment on above: Order Comment: Speci men Type: BLOOD SPECIMEN [facility] Address: [address] [place] [place] [address] Performed By: #### 2 4323-8 #### [facility] CLIA [id number] [address] [place] [address] Bilirubin [Mass/Vol] 0.4 mg/dL Normal 0.2-1.3 [facility] Comment on above: Order Comment: Speci men Type: BLOOD SPECIMEN [facility] Address: [address] [place] [address] Performed By: #### 2 4323-8 #### [facility] CLIA [id number] [address] [place] [address] Calcium [Mass/Vol] 9.7 mg/dL Normal 8.5-10.2 [facility] Comment on above: Order Comment: Speci men Type: BLOOD SPECIMEN [facility] Address: [address] [place] [address] Performed By: #### 2 4323-8 #### [facility] CLIA [id number] [address] [place] [address] Chloride [Moles/Vol] 102 mmol/L Normal 98-107 [facility] Comment on above: Order Comment: Speci men Type: BLOOD SPECIMEN [facility] Address: [address] [place] [place] [id number] Performed By: #### 2 4323-8 #### [facility] CLIA [id number] [address] [place] [address] CO2 [Moles/Vol] 27 mmol/L Normal 22-30 [facility] Comment on above: Order Comment: Speci men Type: BLOOD SPECIMEN [facility] Address: [address] [place] [address] Performed By: #### 2 4323-8 #### [facility] CLIA [id number] [address] [place] [address] Creatinine [Mass/Vol] 0.95 mg/dL Normal 0.58-0.96 [facility] Comment on above: Order Comment: Speci men Type: BLOOD SPECIMEN [facility] Address: [address] [place] [address] Performed By: #### 2 4323-8 #### [facility] CLIA [id number] [address] [place] [address]65 Creatinine and Glomerular filtration rate.predicted panel (S/P/Bld) 67 mL/min/1.73m??? Normal >=60 [facility] Comment on above: Order Comment: Igori men Type: BLOOD SPECIMEN [facility] Address: [address] [place] [address] Result Comment: Judy mated Glomerular Filtration Rate [...] GFR. Performed By: #### 2 4323-8 #### [facility] CLIA [id number] [address] [place] [address] 17497 Glucose [Mass/Vol] 97 mg/dL Normal 74-99 [facility] Comment on above: Order Comment: Igori men Type: BLOOD SPECIMEN [facility] Address: [address] [id number] Result Comment: The [place] Diabetes Association (ADA) provides guidance for cutoff [...] Standards of Medical Care in Diabetes 2016, [place] [employer]. Diabetes Care. 2016.39(Suppl 1). Performed By: #### 2 4323-8 #### [facility] CLIA [id number] [address] [place] [address] Potassium [Moles/Vol] 4.2 mmol/L Normal 3.7-5.1 [facility] Comment on above: Order Comment: Speci men Type: BLOOD SPECIMEN [facility] Address: [address] [place] [address] Performed By: #### 2 4323-8 #### [facility] CLIA [id number] [address] [place] [address] 23814 Protein [Mass/Vol] 6.6 g/dL Normal 6.3-8.0 [facility] Comment on above: Order Comment: Speci men Type: BLOOD SPECIMEN [facility] Address: [address] [place], [place] [address] Performed By: #### 2 4323-8 #### [facility] CLIA [id number] [address] [place] [address] Sodium [Moles/Vol] 140 mmol/L Normal 136-144 [facility] Comment on above: Order Comment: Speci men Type: BLOOD SPECIMEN [facility] Address: [address] [place] [address] Performed By: #### 2 4323-8 #### [facility] CLIA [id number] [address] [place] [address] Urea nitrogen [Mass/Vol] 20 mg/dL Normal 7-21 [facility] Comment on above: Order Comment: Speci men Type: BLOOD SPECIMEN [facility] Address: [address] [place] [address] Performed By: #### 2 4323-8 #### [facility] CLIA [id number] [address] [place] [address] Ambulatory Visit Summaryon 1 Ambulatory Visit Summary [...] DIPTI TOVAR PA-C Where: [facility] [address] [id number]- Thursday 8:45 AM EDT With: Roland VELEZ MD Where: [facility] [address] [address]- You Need to Schedule the Following Appointments Follow Up with Roland VELEZ MD, URL When: Where: [facility] [address] [place] [phone] Medications What How Much When Instructions Unchanged [...] may eat and drink normally. ? Take ouxg-ncm-ynyrivj and prescription medicines only as told by your health care provider. ? Let your health care provider know about any medicines that you are taking, including mkvl-fdr-oxxrfkb medicines, vitamins, herbs, and supplements. ? Choose [...] o (more content not included)... Normal [facility] Urology Office/Clinic Noteon 06-07-2024 Urology Office/Clinic [...] [address], [place] [phone] Additional Instructions: 4 mos w/ KUB and metabolic workup Patient Education 24-Hour Urine Collection Kidney Stones, Zgme-ny-Pdfh I, Nella Carrillo, personally scribed for Dr. [...] - De (more content not included)... Normal [facility] Comment on above: Result Comment: Elec tronically Signed By: Roland VELEZ MD\.br\Date and Time Signed: 06/07/24 16:02 EDT\.br\Electronically Co-Signed By: Nella Carrillo\.br\Date and Time Co-Signed: 06/07/24 16:00 EDT MAMM SCREENING BILATERAL W C cane stripper 05-30-2024 MAMM SCREENING BILATERAL W CAD MAMM SCREENING BILATERAL W CAD ALBERT ROBERTS 1960 [id number] EXAM: MAMM SCREENING BILATERAL W CAD, 05/28/2024 9:30 AM CLINICAL INDICATIONS: Screening, Malignant neoplasm of upper-outer quadrant of right breast in female, estrogen receptor positive ([facility]); Screening mammogram for breast cancer COMPARISON: [...] AM 2 c MAMM 1 YR Normal [facility] DEXA SCAN CENTRAL SKELETALon 05-29-2024 DEXA SCAN [...] Arellano MD on 05/29/2024 3:48 PM Normal [facility] CNPNon 05-20-2024 CNPN Telephone (HEMASA) ALBERT ROBERTS ([id number]) 1960 F Date Time Provider Department 05/20/24 UADRA ANDREWS During your visit today, we recorded the following information about you: Audra Andrews RN 05/20/2024 10:30 AM Signed [facility] called for DX code to be added to screening mammogram order. Z12.31 added and faxed to requested # [phone]. Pt is scheduled next week. Audra Andrews RN Allergies As of Date: 05/20/2024 Noted Allergy Reaction KEFLEX (CEPHALEXIN) 01/14/2017 16 - Unknown Date Reviewed: 07/17/2023 Reviewed by: Ryan Daniels APRN.GLYCERIN SUPERVISOR - Fully Assessed Reason for Visit: DX [...] Status:Closed by AUDRA ANDREWS on 05/20/24 Normal [facility] Basophils Auto (Bld) [#/Vol] on 04-13-2024 Basophils (Bld) [#/Vol] 0.0 10 3/uL 0.0-0.1 [facility] Basophils/100 WBC Auto (Bld) on 04-13-2024 Basophils/100 WBC (Bld) 0.7 % 0.2-2.0 [facility] Eosinophils/100 WBC Auto (Bl d)on 04-13-2024 Eosinophils/100 WBC (Bld) 1.2 % 0.9-7.0 [facility] Erythrocyte distribution wid th Auto (RBC) [Ratio]on 04-13-2024 Erythrocyte distribution width (RBC) [Ratio] 12.1 % 11.0-15.0 [facility] Hematocrit Auto (Bld) [Volum e fraction]on 04-13-2024 Hematocrit (Bld) [Volume fraction] 41.0 % 36.0-48.0 [facility] Hemoglobin [Mass/volume] in Bloodon 04-13-2024 Hemoglobin (Bld) [Mass/Vol] 13.6 g/dL 12.0-16.0 [facility] Chip 04-13-2024 L Specimen: [id number] Received: 04/18/24 Status: GEMA Oneill Num: [id number] Spec Type: Impression Subm Dr: Juma Buckner DO Tissues: PATHPER Procedures: PATHREVIEW Age/ Patient Sex Location Account Attending Physician Albert Roberts 64/F [place] [id number] Juma Buckner DO SPEC NUM: [id number] RECD: 04/18/24 STATUS: DAVIDLeonela ONEILL NUM: [id number] GILA: 04/13/[address]: Juma Buckner DO ENTERED: 04/18/[address] [facility] [address]: SPEC TYPE: Impression DEPT: MALENA Alvarez ENTERED BY: [id number] RECV BY: [id number] ORDERED: PATHREVIEW ORDERED: PATHREVIEW Pathologist Review Abnormal [...] antineoplastics. Continuous clinical correlations are suggested CPT: 37182 ---- ---- Specimen: [id number] Received: 04/18/24 Status: GEMA Oneill Num: [id number] Spec Type: Impression Subm Dr: Juma Buckner DO Tissues: PATHPER Procedures: PATHREVIEW ---- Patient: Albert Roberts [id number] (Continued) ---- Signed (signature on file) Yue Braga MD 04/18/242006 Normal [facility] - Hematology and Cell countson 04-13-2024 ESR (Bld) [Velocity] 6 mm/h <=30 [facility] Immature granulocytes/100 WBC (Bld) 0.2 % 0.0-0.5 [facility] Leukocytes [#/volume] correc noe for nucleated erythrocytes in Blood by Automated counon 04-13-2024 WBC corrected for nucl RBC Auto (Bld) [#/Vol] 5.7 10 3/uL 4.0-11.0 [facility] Lymphocytes Auto (Bld) [#/Vo l]on 04-13-2024 Lymphocytes (Bld) [#/Vol] 1.1 10 3/uL Low 1.2-3.8 [facility] Lymphocytes/100 WBC Auto (Bl d)on 04-13-2024 Lymphocytes/100 WBC (Bld) 18.8 % Low 20.5-60.0 [facility] MCH Auto (RBC) [Entitic mass ]on 04-13-2024 MCH (RBC) [Entitic mass] 31.3 pg 26.7-34.0 [facility] MCHC Auto (RBC) [Mass/Vol]on 04-13-2024 MCHC (RBC) [Mass/Vol] 33.2 g/dL 29.9-35.2 [facility] MCV Auto (RBC) [Entitic vol] on 04-13-2024 MCV (RBC) [Entitic vol] 94.5 fL 81.0-99.0 [facility] Monocytes Auto (Bld) [#/Vol] on 04-13-2024 Monocytes (Bld) [#/Vol] 0.3 10 3/uL 0.3-0.8 [facility] Monocytes/100 WBC Auto (Bld) on 04-13-2024 Monocytes/100 WBC (Bld) 5.4 % 1.7-12.0 [facility] Neutrophils Auto (Bld) [#/Vo l]on 04-13-2024 Neutrophils (Bld) [#/Vol] 4.2 10 3/uL 1.4-6.5 [facility] Neutrophils/100 WBC Auto (Bl d)on 04-13-2024 Neutrophils/100 WBC (Bld) 73.7 % 43.0-75.0 [facility] No Panel Informationon 04-13 C-Reactive Protein, Quantitative <0.50 mg/dL <=0.50 [facility] Eosinophils # (Auto) 0.1 10 3/uL 0.0-0.7 [facility] Immature Granulocyte # (Auto) 0.01 10 3/uL 0.00-0.03 [facility] Platelet mean volume Auto (B ld) [Entitic vol]on 04-13-2024 Platelet mean volume (Bld) [Entitic vol] 11.2 fL 9.5-13.5 [facility] Platelets Auto (Bld) [#/Vol] on 04-13-2024 Platelets (Bld) [#/Vol] 199 10 3/uL 150-450 [facility] RBC Auto (Bld) [#/Vol]on RBC (Bld) [#/Vol] 4.34 10 6/uL 4.20-5.40 [facility] Serum or plasma free cefurox haylee measurement (mass/volume)on 04-13-2024 Cefuroxime free [Mass/Vol] Negative Negative [facility] Comment on above: Performed at: [facility] [place] [place] [id number] Director: Dima Sosa PhD, Phone: [phone] Activated partial thrombopla stin time (aPTT) in platelet poor plasma by coagulation aon 04-04-2024 aPTT Coag (PPP) [Time] 29.7 s 22.3-36.2 [facility] Basophils Auto (Bld) [#/Vol] on 04-04-2024 Basophils (Bld) [#/Vol] 0.0 10 3/uL 0.0-0.1 [facility] Basophils/100 WBC Auto (Bld) on 04-04-2024 Basophils/100 WBC (Bld) 1.5 % 0.2-2.0 [facility] Eosinophils/100 WBC Auto (Bl d)on 04-04-2024 Eosinophils/100 WBC (Bld) 3.0 % 0.9-7.0 [facility] Erythrocyte distribution wid th Auto (RBC) [Ratio]on 04-04-2024 Erythrocyte distribution width (RBC) [Ratio] 12.0 % 11.0-15.0 [facility] Estimated glomerular filtrat ion rate (GFR) non- Americanon 04-04-2024 GFR/1.73 sq M.predicted among non-blacks MDRD (S/P/Bld) [Vol rate/Area] 58 mL/min/{1.73_m2} Low >=60 [facility] Hematocrit Auto (Bld) [Volum e fraction]on 04-04-2024 Hematocrit (Bld) [Volume fraction] 42.8 % 36.0-48.0 [facility] Hemoglobin [Mass/volume] in Bloodon 04-04-2024 Hemoglobin (Bld) [Mass/Vol] 14.2 g/dL 12.0-16.0 [facility] INR in Platelet poor plasma by Coagulation assayon 04-04-2024 INR Coag (PPP) [Relative time] 1.13 {INR} [facility] Comment on above: DESIRED INR:2.0-3.0 CONDITIONS NOT LISTED BELOW2.5-3.5 FOR PROSTHETIC HEART VALVE REPLACEMENT2.5-3.5 RECURRENT THROMBOSIS Laboratory - Chemistry and C hemistry - challengeon 04-04-2024 Calcium [Mass/Vol] 8.9 mg/dL 8.5-10.1 [place] Chloride [Moles/Vol] 104 mmol/L 98-107 [facility] CO2 [Moles/Vol] 27.6 mmol/L 21.0-32.0 [facility] Creatinine [Mass/Vol] 0.97 mg/dL 0.55-1.02 [facility] GFR/1.73 sq M.predicted MDRD (S/P/Bld) [Vol rate/Area] mL/min/{1.73_m2} >=60 [facility] Glucose [Mass/Vol] 92 mg/dL 74-106 [place] Potassium [Moles/Vol] 4.0 mmol/L 3.5-5.1 [facility] Sodium [Moles/Vol] 140 mmol/L 136-145 [place] Urea nitrogen [Mass/Vol] 25.0 mg/dL High 7.0-18.0 [facility] Urea nitrogen/Creatinine [Mass ratio] 25.8 mg/mg [facility] Laboratory - Hematology and Cell countson 04-04-2024 Immature granulocytes/100 WBC (Bld) 0.4 % 0.0-0.5 [facility] Leukocytes [#/volume] correc noe for nucleated erythrocytes in Blood by Automated counon 04-04-2024 WBC corrected for nucl RBC Auto (Bld) [#/Vol] 2.7 10 3/uL Low 4.0-11.0 [facility] Lymphocytes Auto (Bld) [#/Vo l]on 04-04-2024 Lymphocytes (Bld) [#/Vol] 0.9 10 3/uL Low 1.2-3.8 [facility] Lymphocytes/100 WBC Auto (Bl d)on 04-04-2024 Lymphocytes/100 WBC (Bld) 33.3 % 20.5-60.0 [facility] MCH Auto (RBC) [Entitic mass ]on 04-04-2024 MCH (RBC) [Entitic mass] 31.0 pg 26.7-34.0 [facility] MCHC Auto (RBC) [Mass/Vol]on 04-04-2024 MCHC (RBC) [Mass/Vol] 33.2 g/dL 29.9-35.2 [facility] MCV Auto (RBC) [Entitic vol] on 04-04-2024 MCV (RBC) [Entitic vol] 93.4 fL 81.0-99.0 [facility] Monocytes Auto (Bld) [#/Vol] on 04-04-2024 Monocytes (Bld) [#/Vol] 0.4 10 3/uL 0.3-0.8 [facility] Monocytes/100 WBC Auto (Bld) on 04-04-2024 Monocytes/100 WBC (Bld) 15.0 % High 1.7-12.0 [facility] Neutrophils Auto (Bld) [#/Vo l]on 04-04-2024 Neutrophils (Bld) [#/Vol] 1.3 10 3/uL Low 1.4-6.5 [facility] Neutrophils/100 WBC Auto (Bl d)on 04-04-2024 Neutrophils/100 WBC (Bld) 46.8 % 43.0-75.0 [facility] No Panel Informationon 04-04 Eosinophils # (Auto) 0.1 10 3/uL 0.0-0.7 [facility] Immature Granulocyte # (Auto) 0.01 10 3/uL 0.00-0.03 [facility] Platelet mean volume Auto (B ld) [Entitic vol]on 04-04-2024 Platelet mean volume (Bld) [Entitic vol] 10.9 fL 9.5-13.5 [facility] Platelets Auto (Bld) [#/Vol] on 04-04-2024 Platelets (Bld) [#/Vol] 198 10 3/uL 150-450 [facility] Prothrombin time (PT)on 03-08 PT Coag (PPP) [Time] 11.8 s High 9.0-11.6 [facility] RBC Auto (Bld) [#/Vol]on RBC (Bld) [#/Vol] 4.58 10 6/uL 4.20-5.40 [facility] Serum or plasma anion gap de terminationon 04-04-2024 Anion gap [Moles/Vol] 12.4 mmol/L [facility] Ambulatory Visit Summaryon 0 02-29-2024 [...] [facility] [address], [place] [address]- [phone] Medications What How Much When Instructions New potassium citrate (potassium CITRATE 10 mEq ER Tab) 2 Tablets By Mouth 2 times a day Duration: 30 Days Refills: 11 Pickup at [facility] #[id number] Unchanged ergocalciferol (Vitamin D) By Mouth Every week Contact prescribing physician if questions or concerns Unchanged Non-Formulary Medication (Calcium) By Mouth Every day Contact prescribing physician if questions or concerns Pharmacy Information [facility] #[id number]: [address], [place] [id number] [phone] What How Much When Comments Stop Taking [...] ? 8 oz (237 mL) of milk, qlmymwc-uucbixhtaaql-e airy milk, and calcium-fortifiedfruit juice. Calcium-fortified means [...] ? Eat (more content not included)... Normal [facility] Patient Educationon 02-29-20 Patient Education [...] ? 8 oz (237 mL) of milk, lvbltpd-mltlyzznwmzf-f airy milk, and calcium-fortifiedfruit juice. Calcium-fortified means [...] Spinach (cooked), rhubarb, beets, sweet potatoes, and Spanish chard. ? Peanuts. ? Potato chips, namibian fries, and baked potatoes with skin on. ? Nuts and nut products. ? Chocolate. ? If you regularly take a diuretic medicine, make sure to eat at least 1 or 2 servings of fruits or vegetables that are high in potassium each day. These include: ? Avocado. ? Banana. ? [place], prune, carrot, or tomato juice. ? Baked [...] fish oil, or vitamin B6. ? Take wpod-akr-sdgmyyk and prescription medicines only as told by your health care provider. These include supplements. What foods sh (more content not included)... Normal [facility] Urology Office/Clinic Noteon 02-29-2024 Urology Office/Clinic Note Chief Complaint kidney stones and asymptomatic microhematuria HPI Staff 1 yr with KUB @ [facility] 02/24/24 due to kidney stones. Previous DX: asymptomatic microscopic hematuria, dysuria, gross hematuria, hydronephrosis with urinary obstruction due to ureteral calculus, kidney stones, lower abdominal pain, microscopic hematuria, ureteral stone. S/P ESWL 04/11/21. Started Effer-K 25mEq BID at prior OV. Electrolyte panel was not done. Could not find any pertaining labs from PCP ([facility], [facility], or [facility] either. Dysuria: no Incomplete bladder emptying: no [...] only been taking this once per day. [place] bloated when she took bid. Advised pt [...] [facility] [address] , [place] [address]- [phone] Additional Instructions: 1 yr w/ KUB Patient [...] Use:. Household (more content not included)... Normal [facility] Comment on above: Result Comment: Elec tronically Signed By: Roland VELEZ MD\.br\Date and Time Signed: 02/29/24 12:00 EDT\.br\Electronically Co-Signed By: Nella Carrillobr\Date and Time Co-Signed: 02/29/24 11:56 EDT RAD - MISCon 02-25-2024 RAD - MISC [id number] 0TIFF Normal [facility] OXALATE 24HR URINEon 022 Oxalates, Urine 14 mg/L Normal Undefined [facility] Comment on above: Performed By: #### U NICHOLE 24 #### [facility] [address] [place] [address] Dr. Lizzette Braga Oxalates, Urine 24hr 28 mg/24 hr Normal 4- [facility] Comment on above: Performed By: #### U NICHOLE 24 #### [facility] [address] [place] [address] [address] Lizzette Braga CITRATE URINE 24HRon 022 Citric Acid, U, 24hr 265 mg/24 hr Critically low 320-1240 [facility] Comment on above: Result Comment: This test was developed and its performance characteristics determined by [facility]. It has not been cleared or approved by the Food and Drug Administration. Performed By: #### U NICHOLE 24 #### [facility] [address] [place] [address] [address] Lizzette Braga Citric Acid, Urine 131 mg/L Normal Undefined [facility] Comment on above: Performed By: #### U NICHOLE 24 #### [facility] [address] [place] [address] Dr. Lizzette Braga MAGNESIUM 24HR URINEon 04-03 Magnesium 24hr Urine 68.9 mg/24 hr Normal 12.0-293.0 [facility] Comment on above: Performed By: #### U NICHOLE 24 #### [facility] [address] [place] [address] Dr. Lizzette Braga Magnesium UR 3.4 mg/dL Normal Not Estab. [facility] Comment on above: Performed By: #### U NICHOLE 24 #### [facility] [address] [place] [address] Dr. Lizzette Braga PHOSPHORUS 24HR URINEon 03-08 Phosphorus, Urine 21.6 mg/dL Normal Not Estab. [facility] Comment on above: Performed By: #### U NICHOLE 24 #### [facility] [address] [place] [address] Dr. Lizzette Braga Phosphorus, Urine 24hr 437 mg/24 hr Normal 261-1078 [facility] Comment on above: Performed By: #### U NICHOLE 24 #### [facility] [address] [place] [address] Dr. Lizzette Braga URIC ACID 24 HR URINEon 03-08 Uric Acid, Urine 19.0 mg/dL Normal Not Estab. [facility] Comment on above: Performed By: #### U NICHOLE 24 #### [facility] [address] [place] [address] Dr. Lizzette Braga Uric Acid, Urine 24hr 384.8 mg/24 hr Normal 142.3-713. 2 [facility] Comment on above: Performed By: #### U NICHOLE 24 #### [facility] [address] [place] [address] Dr. Lizzette Braga CALCIUM 24 HR URINEon 2021 CALC, 24 HR UR 141.8 mg/24 hr Normal 100.0-300.[address] [facility] Comment on above: Performed By: #### U NICHOLE 24 #### [facility] [address] [place] [address] Dr. Lizzette Braga UR CALCIUM 7.0 mg/dL Normal 5.1-21.0 [facility] Comment on above: Performed By: #### U NICHOLE 24 #### [facility] [address] [place] [address] Dr. Lizzette Braga CREA 24 HR URINEon 2 CREA, 24 HR UR 896.06 mg/24 hr Normal 800.00-1,8 00.0 0 [facility] Comment on above: Performed By: #### U NICHOLE 24 #### [facility] [address] [place] [address] Dr. Lizzette Braga URINE CREAT 44.25 mg/dL Normal 20.00-300.00 [facility] Comment on above: Performed By: #### U NICHOLE 24 #### [facility] [address] [place] [address] Dr. Lizzette Braga PTH INTACTon 04-01-2022 PTH, Intact 36 pg/mL Normal 15-65 [facility] Comment on above: Performed By: #### U NICHOLE 24 #### [facility] [address] [place] [address] Dr. Lizzette Braga SODIUM 24 HR URINEon 022 NA, 24 HR UR 99 mmol/24 hr Normal 40-220 [facility] Comment on above: Performed By: #### U NICHOLE 24 #### [facility] [address] [place] [address] Dr. Lizzette Braga Sodium (U) [Moles/Vol] 49 mmol/L Normal 30-90 [facility] Comment on above: Performed By: #### U NICHOLE 24 #### [facility] [address] [place] [address] Dr. Lizzette Braga UR TOT VOL 2025 ml/24 HR Normal [facility] Comment on above: Performed By: #### U NICHOLE 24 #### [facility] [address] [place] [address] Dr. Lizzette Braga BUNon 03-31-2022 Urea nitrogen [Mass/Vol] 18.0 mg/dL Normal 7.0-18.0 [facility] Comment on above: Performed By: #### C O2, CA, URIC, NA, K, CREA, BUN, CL #### [facility] [address] [place] [address] Dr. Lizzette Braga CALCIUMon 03-31-2022 Calcium [Mass/Vol] 9.0 mg/dL Normal 8.5-10.1 [facility] Comment on above: Performed By: #### U NICHOLE 24 #### [facility] [address] [place] [address] Dr. Lizzette Braga CHLORIDEon 03-31-2022 Chloride [Moles/Vol] 105 mmol/L Normal 98-107 [facility] Comment on above: Performed By: #### C O2, CA, URIC, NA, K, CREA, BUN, CL #### [facility] [address] [place] [address] Dr. Lizzette Braga CO2on 03-31-2022 CO2 [Moles/Vol] 27.7 mmol/L Normal 21.0-32.0 [facility] Comment on above: Performed By: #### C O2, CA, URIC, NA, K, CREA, BUN, CL #### [facility] [address] [place] [address] Dr. Lizzette Braga CREATININEon 03-31-2022 Creatinine [Mass/Vol] 0.96 mg/dL Normal 0.55-1.02 [facility] Comment on above: Performed By: #### C O2, CA, URIC, NA, K, CREA, BUN, CL #### [facility] [address] [place] [address] [address] Lizzette Braga EGFR-AF BARBADIAN >60 Normal >=60 [facility] Comment on above: Performed By: #### C O2, CA, URIC, NA, K, CREA, BUN, CL #### [facility] [address] [place] [address] [address] Lizzette Braga EGFR-NON AF BARBADIAN 59 mL/min/1.73m2 Critically low >=60 [facility] Comment on above: Performed By: #### C O2, CA, URIC, NA, K, CREA, BUN, CL #### [facility] [address] [place] [address] Dr. Lizzette Braga NAon 03-31-2022 Sodium [Moles/Vol] 141 mmol/L Normal 136-145 [facility] Comment on above: Performed By: #### C O2, CA, URIC, NA, K, CREA, BUN, CL #### [facility] [address] [place] [address] Dr. Lizzette Braga POTASSIUMon 03-31-2022 Potassium [Moles/Vol] 4.1 mmol/L Normal 3.5-5.1 [facility] Comment on above: Performed By: #### C O2, CA, URIC, NA, K, CREA, BUN, CL #### [facility] [address] [place] [address] [address] Lizzette Braga URIC ACID SERUMon 03-31-2022 Urate [Mass/Vol] 3.0 mg/dL Normal 2.6-6.0 [facility] Comment on above: Performed By: #### C O2, CA, URIC, NA, K, CREA, BUN, CL #### [facility] [address] [place] [address] Dr. Lizzette Braga XR KUB 1 VIEWon [...] ISRRAEL COOPER Date: 2022-02-28 06:17 Normal [facility] CALCULI, URINARYon 1 2,8 Dihydroxyadenine Normal [facility] Comment on above: Performed By: #### U NICHOLE 24 #### [facility] [address] [place] [address] [address] Lizzette Braga Ammonium Acid Urate Normal [facility] Comment on above: Performed By: #### U NICHOLE 24 #### [facility] [address] [place] [address] Dr. Lizzette Braga Bilirubin Ql (U) Normal [facility] Comment on above: Performed By: #### U NICHOLE 24 #### [facility] [address] [address] [address] Lizzette Braga Ca Oxalate Dihydrate 20 % Normal [facility] Comment on above: Performed By: #### U NICHOLE 24 #### [facility] [address] [address] [address] Lizzette Braga CaHPO4 (Brushite) Normal [facility] Comment on above: Performed By: #### U NICHOLE 24 #### [facility] [address] [address] [address] Lizzette Braga Calcium Bilirubinate Normal [facility] Comment on above: Performed By: #### U NICHOLE 24 #### [facility] [address] [address] [address] Lizzette Braga Calcium Carbonate Normal [facility] Comment on above: Performed By: #### U NICHOLE 24 #### [facility] [address] [address] [address] iLzzette Braga Calcium Oxalate Monohydrate 80 % [facility] Comment on above: Performed By: #### U NICHOLE 24 #### [facility] [address] [place] [address] Dr. Lizzette Braga Calcium Palmitate Normal [facility] Comment on above: Performed By: #### U NICHOLE 24 #### [facility] [address] [address] [address] Lizzette Braga Calcium Phosphate Normal [facility] Comment on above: Performed By: #### U NICHOLE 24 #### [facility] [address] [address] [address] Lizzette Braga Calcium Stearate Normal [facility] Comment on above: Performed By: #### U NICHOLE 24 #### [facility] [address] [address] [address] Lizzette Braga Carbonate Apatite Normal [facility] Comment on above: Performed By: #### U NICHOLE 24 #### [facility] [address] [address] [address] Lizzette Braga Cellular Material Normal [facility] Comment on above: Performed By: #### U NICHOLE 24 #### [facility] [address] [address] [address] Lizzette Braga Cholesterol [facility] Comment on above: Performed By: #### U NICHOLE 24 #### [facility] [address] [address] [address] Lizzette Braga Color (U) Brown Normal [facility] Comment on above: Performed By: #### U NICHOLE 24 #### [facility] [address] [address] [address] Lizzette Braga Comment [facility] Comment on above: Performed By: #### U NICHOLE 24 #### [facility] [address] [address] [address] Lizzette Braga Comment: Comment Normal [facility] Comment on above: Result Comment: Lyle carias questions regarding Calculi Analysis contact [facility] at: [phone]. Performed By: #### U NICHOLE 24 #### [facility] [address] [place] [address] Dr. Lizzette Braga Composition Comment [facility] Comment on above: Result Comment: Perc entage (Represents the % composition) Performed By: #### U NICHOLE 24 #### [facility] [address] [address] [address] Lizzette Braga Cystine Normal [facility] Comment on above: Performed By: #### U NICHOLE 24 #### [facility] [address] [place] [address] Dr. Lizzette Braga Disclaimer: Comment Normal [facility] Comment on above: Result Comment: This test was developed and its performance characteristics determined by [facility]. It has not been cleared or approved by the Food and Drug Administration. Performed By: #### U NICHOLE 24 #### [facility] [address] [address] [address] Lizzette Braga Dried Blood [facility] Comment on above: Performed By: #### U NICHOLE 24 #### [facility] [address] [place] [address] Dr. Lizzette Braga Drug or Metabolite [facility] Comment on above: Performed By: #### U NICHOLE 24 #### [facility] [address] [place] [address] Dr. Lizzette Braga Hydroxyapatite [facility] Comment on above: Performed By: #### U NICHOLE 24 #### [facility] [address] [place] [address] Dr. Lizzette Braga Mg NH4 PO4 (Struvite) [facility] Comment on above: Performed By: #### U NICHOLE 24 #### [facility] [address] [place] [address] Dr. Lizzette Braga MgHPO4 (Newberyite) Normal [facility] Comment on above: Performed By: #### U NICHOLE 24 #### [facility] [address] [place] [address] Dr. Lizzette Braga Other component(s) Normal [facility] Comment on above: Performed By: #### U NICHOLE 24 #### [facility] [address] [place] [address] Dr. Lizzette Braga PDF . Normal [facility] Comment on above: Performed By: #### U NICHOLE 24 #### [facility] [facility] [address] [place] [address] Dr. Lizzette Braga Photo Comment Normal [facility] Comment on above: Result Comment: Phot ograph will follow under a separate cover Performed By: #### U NICHOLE 24 #### [facility] [address] [address] [address] Lizzette Braga Please note: Comment Normal [facility] Comment on above: Result Comment: Calc romelia report will follow via computer, mail or data technical lead delivery. Performed By: #### U NICHOLE 24 #### [facility] [address] [address] [address] Lizzette Braga Size 3x3 [facility] Comment on above: Result Comment: Mult iple pieces received. Dimensions of the largest piece reported. Performed By: #### U NICHOLE 24 #### [facility] [address] [address] [address] Lizzette Braga Sodium Acid Urate [facility] Comment on above: Performed By: #### U NICHOLE 24 #### [facility] [address] [place] [address] Dr. Lizzette Braga Source Comment Normal [facility] Comment on above: Result Comment: Not provided Performed By: #### U NICHOLE 24 #### [facility] [address] [address] [address] Lizzette Braga Triamterene [facility] Comment on above: Performed By: #### U NICHOLE 24 #### [facility] [address] [address] [address] Lizzette Braga Uric Acid [facility] Comment on above: Performed By: #### U NICHOLE 24 #### [facility] [address] [address] [address] Lizzette Braga Uric Acid Dihydrate Normal [facility] Comment on above: Performed By: #### U NICHOLE 24 #### [facility] [address] [address] [address] Lizzette Braga Weight 84 mg [facility] Comment on above: Performed By: #### U NICHOLE 24 #### [facility] [address] [address] [address] Lizzette Braga Xanthine [facility] Comment on above: Performed By: #### U NICHOLE 24 #### [facility] [id number] Lizzette Braga XR KUB 1 VIEWon [...] ISRRAEL COOPER Date: 2021 07:38 Normal [facility] COVID-19 Positive/Negativeon 02-25-2021 SARS-CoV-2 (COVID-19) N gene TREVOR+probe Ql (Resp) Negative Negative [facility] Comment on above: Testing for SARS-CoV -2 by RT-PCRThis test was developed and its performance characteristics determined by [employer]) and validated at the [facility]. This test has not been FDA [...] 02-14-2021 Basophils (Bld) [#/Vol] 0.0 10*3/uL 0.0-0.2 [facility] Basophils/100 WBC Auto (Bld) on 02-14-2021 Basophils/100 WBC (Bld) 0.5 % [facility] Blood hemoglobin measurement (mass/volume)on 02-14-2021 Hemoglobin (Bld) [Mass/Vol] 14.3 g/dL 11.8-15.4 [facility] Blood leukocytes automated c ount (number/volume)on 02-14-2021 WBC (Bld) [#/Vol] 5.0 10*3/uL 4.5-11.0 [facility] Creatinine and Glomerular fi ltration rate.predicted panel (S/P/Bld)on 02-14-2021 Creatinine [Mass/Vol] 0.89 mg/dL 0.44-1.03 [facility] Eosinophils Auto (Bld) [#/Vo l]on 02-14-2021 Eosinophils (Bld) [#/Vol] 0.1 10*3/uL 0.0-0.45 [facility] Eosinophils/100 WBC Auto (Bl d)on 02-14-2021 Eosinophils/100 WBC (Bld) 1.3 % [facility] Erythrocyte distribution wid th Auto (RBC) [Ratio]on 02-14-2021 Erythrocyte distribution width (RBC) [Ratio] 12.8 % 11.9-15.3 [facility] Estimated glomerular filtrat ion rate (GFR) non- Americanon 02-14-2021 GFR/1.73 sq M.predicted among non-blacks MDRD (S/P/Bld) [Vol rate/Area] > 60 mL/Min [facility] Hematocrit Auto (Bld) [Volum e fraction]on 02-14-2021 Hematocrit (Bld) [Volume fraction] 42.9 % 34.0-46.4 [facility] Laboratory - Hematology and Cell countson 02-14-2021 Nucleated RBC/100 WBC (Bld) [Ratio] 0.3 % 0-0.5 [facility] Lymphocytes Auto (Bld) [#/Vo l]on 02-14-2021 Lymphocytes (Bld) [#/Vol] 1.0 10*3/uL 1.00-4.8 [facility] Lymphocytes/100 WBC Auto (Bl d)on 02-14-2021 Lymphocytes/100 WBC (Bld) 19.9 % [facility] MCH Auto (RBC) [Entitic mass ]on 02-14-2021 MCH (RBC) [Entitic mass] 31.1 pg 24.7-34.3 [facility] MCHC Auto (RBC) [Mass/Vol]on 02-14-2021 MCHC (RBC) [Mass/Vol] 33.5 g/dL 32.0-35.0 [facility] MCV Auto (RBC) [Entitic vol] on 02-14-2021 MCV (RBC) [Entitic vol] 93.0 fL 80-100 [facility] Monocytes Auto (Bld) [#/Vol] on 02-14-2021 Monocytes (Bld) [#/Vol] 0.4 10*3/uL 0.0-0.8 [facility] Monocytes/100 WBC Auto (Bld) on 02-14-2021 Monocytes/100 WBC (Bld) 7.1 % [facility] Neutrophils Auto (Bld) [#/Vo l]on 02-14-2021 Neutrophils (Bld) [#/Vol] 3.6 10*3/uL 1.8-7.7 [facility] Neutrophils/100 WBC Auto (Bl d)on 02-14-2021 Neutrophils/100 WBC (Bld) 71.2 % [facility] No Panel Informationon 02-14 Estimated GFR () > 60 mL/Min [facility] Comment on above: GFR estimated refere nce range: According to KDOQI guidelines, <60 ml/min/1.73m2 is sufficient to diagnose a patient with chronic kidney disease. Pharmacy Creatinine Clearance (Chem N/A [facility] Platelet mean volume Auto (B ld) [Entitic vol]on 02-14-2021 Platelet mean volume (Bld) [Entitic vol] 10.2 fL 6.3-10.7 [facility] Platelets Auto (Bld) [#/Vol] on 02-14-2021 Platelets (Bld) [#/Vol] 198 10*3/uL 150-450 [facility] RBC Auto (Bld) [#/Vol]on RBC (Bld) [#/Vol] 4.61 10*6/uL 3.60-5.00 [facility] Serum or plasma calcium macario urement (mass/volume)on 02-14-2021 Calcium [Mass/Vol] 9.5 mg/dL 8.2-10.2 [facility] Serum or plasma chloride tylor surement (moles/volume)on 02-14-2021 Chloride [Moles/Vol] 100 mmol/L 95-114 [facility] Serum or plasma glucose macario urement (mass/volume)on 02-14-2021 Glucose [Mass/Vol] 93 mg/dL 70-100 [facility] Comment on above: ADA recommended refe rence rangeRandom Glucose Reference Range is dependent on time and content of last meal. Glucose of more than 200 mg/dL in a nonstressed, ambulatory subject supports the diagnosis of Diabetes Mellitus. Serum or plasma potassium me asurement (moles/volume)on 02-14-2021 Potassium [Moles/Vol] 4.2 mmol/L 3.5-5.1 [facility] Serum or plasma sodium measu rement (moles/volume)on 02-14-2021 Sodium [Moles/Vol] 139 mmol/L 136-146 [facility] Serum or plasma total carbon dioxide measurement (moles/volume)on 02-14-2021 CO2 [Moles/Vol] 24.7 mmol/L 22.0-30.0 [facility] Serum or plasma urea nitroge n measurement (mass/volume)on 02-14-2021 Urea nitrogen [Mass/Vol] 20 mg/dL 9- [facility] Vital Signs Date Time Vital Sign Value Performing Clinician Facility 07-14-2024 15:26-0500 Body height 165.1 cm Liborio Sarabia MD Work Phone: [facility] 07-14-2024 15:26-0500 Body mass index (BMI) [Ratio] 21.61 kg/m2 Liborio Sarabia MD Work Phone: [facility] 07-14-2024 15:26-0500 Body temperature 96.8 [degF] Liborio Sarabia MD Work Phone: [facility] 07-14-2024 15:26-0500 Body weight 58.9 kg Liborio Sarabia MD Work Phone: [facility] 07-14-2024 15:26-0500 Diastolic blood pressure 87 mm[Hg] Liborio Sarabia MD Work Phone: [facility] 07-14-2024 15:26-0500 Heart rate 66 /min Liborio Sarabia MD Work Phone: [facility] 07-14-2024 15:26-0500 Respiratory rate 16 /min Liborio Sarabia MD Work Phone: [facility] 07-14-2024 15:26-0500 SaO2% (BldA) [Mass fraction] 100 % Liborio Sarabia MD Work Phone: [facility] 07-14-2024 15:26-0500 Systolic blood pressure 151 mm[Hg] Liborio Sarabia MD Work Phone: [facility] 06-07-2024 15:31-0400 Blood Pressure Location Roland VELEZ [facility] 06-07-2024 15:31-0400 Diastolic blood pressure 84 mm[Hg] Roland VELEZ [facility] 06-07-2024 15:31-0400 Heart rate 96 /min Roland VELEZ [facility] 06-07-2024 15:31-0400 Respiratory rate 16 /min Roland VELEZ [facility] 06-07-2024 15:31-0400 Systolic blood pressure 128 mm[Hg] Roland VELEZ [facility] 02-29-2024 11:18-0400 Blood Pressure Location Roland VELEZ [facility] 02-29-2024 11:18-0400 Body temperature 98.6 [degF] Roland VELEZ [facility] 02-29-2024 11:18-0400 Diastolic blood pressure 84 mm[Hg] Roland VELEZ [facility] 02-29-2024 11:18-0400 Heart rate 69 /min Rolandmari VELEZ [facility] 02-29-2024 11:18-0400 Respiratory rate 16 /min Roland VELEZ [facility] 02-29-2024 11:18-0400 Systolic blood pressure 124 mm[Hg] Roland VELEZ [facility] 07-16-2023 14:59-0500 Body height 165.1 cm Liborio Sarabia MD Work Phone: [facility] 07-16-2023 14:59-0500 Body temperature 97.5 [degF] Liborio Sarabia MD Work Phone: [facility] 07-16-2023 14:59-0500 Body weight 58.15 kg Liborio Sarabia MD Work Phone: [facility] 07-16-2023 14:59-0500 Diastolic blood pressure 70 mm[Hg] Liborio Sarabia MD Work Phone: [facility] 07-16-2023 14:59-0500 Heart rate 80 /min Liborio Sarabia MD Work Phone: [facility] 07-16-2023 14:59-0500 Respiratory rate 16 /min Liborio Sarabia MD Work Phone: [facility] 07-16-2023 14:59-0500 SaO2% (BldA) [Mass fraction] 100 % Liborio Sarabia MD Work Phone: [facility] 07-16-2023 14:59-0500 Systolic blood pressure 159 mm[Hg] Liborio Sarabia MD Work Phone: [facility] 06-19-2023 14:45-0400 Body height 161.29 cm Juma Ball Other [employer] Other 06-19-2023 14:45-0400 Body mass index (BMI) [Ratio] 22.14 kg/m2 Juma Ball Other [employer] Other 06-19-2023 14:45-0400 Body weight 57.61 kg Juma Ball Other [employer] Other 06-19-2023 14:45-0400 Diastolic blood pressure 79 mm[Hg] Juma Ball Other [employer] Other 06-19-2023 14:45-0400 Respiratory rate 12 /min Juma Ball Other [employer] Other 06-19-2023 14:45-0400 Systolic blood pressure 156 mm[Hg] Juma Ball Other [employer] Other 10-28-2022 16:30-0500 Body height 161.29 cm Karina Carlson Other [employer] Other 10-28-2022 16:30-0500 Body mass index (BMI) [Ratio] 21.97 kg/m2 Karina Carlson Other [employer] Other 10-28-2022 16:30-0500 Body temperature 97.3 [degF] Karina Carlson Other [employer] Other 10-28-2022 16:30-0500 Body weight 57.15 kg Karina Carlson Other [employer] Other 10-28-2022 16:30-0500 Respiratory rate 19 /min Karina Carlson Other [employer] Other 10-28-2022 16:30-0500 SaO2% (BldA) [Mass fraction] Karina Carlson Other [employer] Other 08-06-2022 15:15-0500 Blood Pressure Location Roland VELEZ [facility] 08-06-2022 15:15-0500 Diastolic blood pressure 80 mm[Hg] Roland VELEZ [facility] 08-06-2022 15:15-0500 Heart rate 72 /min Roland VELEZ [facility] 08-06-2022 15:15-0500 Systolic blood pressure 141 mm[Hg] Roland VELEZ [facility] 06-16-2022 15:31-0400 Body height 165.1 cm Liborio Sarabia MD Work Phone: [facility] 06-16-2022 15:31-0400 Body temperature 97.39 [degF] Liborio Sarabia MD Work Phone: [facility] 06-16-2022 15:31-0400 Body weight 55.97 kg Liborio Sarabia MD Work Phone: [facility] 06-16-2022 15:31-0400 Diastolic blood pressure 67 mm[Hg] Liborio Sarabia MD Work Phone: [facility] 06-16-2022 15:31-0400 Heart rate 82 /min Liborio Sarabia MD Work Phone: [facility] 06-16-2022 15:31-0400 Respiratory rate 16 /min Liborio Sarabia MD Work Phone: [facility] 06-16-2022 15:31-0400 SaO2% (BldA) [Mass fraction] 99 % Liborio Sarabia MD Work Phone: [facility] 06-16-2022 15:31-0400 Systolic blood pressure 147 mm[Hg] Liborio Sarabia MD Work Phone: [facility] 03-12-2022 10:42-0400 Blood Pressure Location Roland VELEZ [facility] 03-12-2022 10:42-0400 Diastolic blood pressure 89 mm[Hg] Roland VELEZ [facility] 03-12-2022 10:42-0400 Heart rate 85 /min Roland VELEZ [facility] 03-12-2022 10:42-0400 Respiratory rate 16 /min Roland VELEZ [facility] 03-12-2022 10:42-0400 Systolic blood pressure 139 mm[Hg] Roland VELEZ [facility] Encounters Encounter Date Encounter Type Care Provider Facility Start: 03-03-2025 ambulatory Roland Dominguezi ty:[facility] Start: 08-30-2024 ambulatory DIPTI Andersen ty:[facility] Start: 07-15-2024 End: 07-15-2024 ambulatory Liborio Sarabia MD Work Phone: Hematology/Oncology Comment on above: Concern Start: 07-15-2024 End: 07-17-2024 Telephone encounter Olivia Oneal RN Hematology/Oncology Start: 07-14-2024 End: 07-14-2024 ambulatory JUMA BUCKNER Facility:[facility] Start: 07-14-2024 End: 07-14-2024 Office outpatient visit 15 minutes Liborio Sarabia MD Work Phone: Hematology/Oncology Comment on above: Malignant neoplasm o f upper-outer quadrant of right breast in female, estrogen receptor positive (HCC) (Primary Dx); Encounter for screening mammogram for malignant neoplasm of breast Start: 06-07-2024 End: 06-07-2024 ambulatory Roland VELEZ Facility:[facility] Start: 06-07-2024 End: 06-07-2024 Patient encounter procedure Roland VELEZ [facility] Start: 05-28-2024 End: 05-28-2024 ambulatory [facility] Start: 05-26-2024 End: 05-26-2024 ambulatory Roland VELEZ Facility:CD:[id number] Start: 05-20-2024 End: 05-20-2024 Patient encounter procedure [facility] Start: 05-20-2024 End: 05-20-2024 Telephone encounter Audra Andrews RN Hematology/Oncology Comment on above: DX code for screenin g mammogram needed Start: 04-13-2024 Non-patient / Non-visit DO Loi Buckner [facility] Work Phone: Start: 04-13-2024 End: 04-14-2024 ambulatory DO Juma Buckner Work Phone: [facility] Work Phone: Start: 04-13-2024 End: 04-13-2024 Departed Referred DO Juma Buckner Work Phone: [facility] Start: 04-04-2024 Non-patient / Non-visit DO Loi Buckner Work Phone: [facility] [employer] Work Phone: Start: 02-29-2024 End: 02-29-2024 ambulatory [facility] Start: 02-29-2024 End: 02-29-2024 Patient encounter procedure Roland VELEZ [facility] Start: 07-17-2023 End: 07-17-2023 ambulatory Juma Buckner Other [employer] Other Start: 07-17-2023 Telephone encounter Juma Buckner [facility] Start: 07-16-2023 End: 07-16-2023 ambulatory Liborio Sarabia MD Work Phone: Hematology/Oncology Comment on above: Malignant neoplasm o f upper-outer quadrant of right breast in female, estrogen receptor positive (HCC) (Primary Dx); Age-related osteoporosis without current pathological fracture Start: 07-16-2023 End: 07-16-2023 Patient encounter procedure Liborio Sarabia MD Work Phone: [employer] Start: 06-19-2023 End: 06-19-2023 ambulatory Juma Buckner Other [employer] Other Start: 06-19-2023 Encounter for genera l adult medical examination without abnormal findings Juma Buckner [facility] Start: 06-19-2023 Periodic preventive med est patient 40-64yrs Juma Buckner [facility] Start: 04-27-2023 Telephone encounter Dipti Baumann RN Hematology/Oncology Comment on above: Orders Start: 10-28-2022 End: 10-28-2022 ambulatory Karina Carlson Other [employer] Other Start: 10-28-2022 Office outpatient ne w 20 minutes Karina Carlson [facility] Start: 08-06-2022 End: 08-06-2022 Patient encounter procedure Roland VELEZ [facility] Start: 06-16-2022 End: 06-16-2022 ambulatory [...] Patient encounter procedure Roland VELEZ [facility] Start: 02-27-2022 End: 02-28-2022 ambulatory [...] Adult depression scr eening assessment Ryan Daniels [employer] Work Phone: Start: 04-30-2021 Mammography Ryan ledesma [employer] Work Phone: Start: 2021 Extracorporeal shock wave lithotripsy of calculus of kidney Roland VELEZ Start: 11-07-2019 Cystoscopy Roland JESUS JORGEKatherin Appendectomy Roland VELEZ Breast structure (cele dy structure) Roland VELEZ Tonsillectomy Roland VELEZ Plan of Treatment Date Care Activity Detail Author Start: 2035 RSV Vaccine (1 - 1-d ose 75+ series) RSV Vaccine (1 - 1-dose 75+ series) [facility] Start: 07-14-2027 Diabetes Screening Diabetes Screenin g [facility] Start: 05-28-2025 Screening for malign ant neoplasm of breast Mammogram Screening [facility] Start: 08-11-2024 End: 08-11-2024 Patient encounter procedure 08/11/2024 4:00 PM EST Office Visit [facility] [address] [place] [address] [place] [address] LAB [facility] Comment on above: LAB Start: 08-11-2024 End: 11-10-2024 Cancer Ag 27-29 [Units/volume] in Serum or Plasma CA 27.29 BLOOD Lab Routine Malignant neoplasm of upper-outer quadrant of right breast in female, estrogen receptor positive (HCC) Expected: 08/11/2024, Expires: 11/10/2024 [facility] Work Phone: Comment on above: Expected: 08/11/2024 , Expires: 11/10/2024 Start: 07-14-2024 End: 07-14-2024 Follow-up encounter 07/14/2024 3:45 PM EST Visit (SP) Office Hematology/Oncology [address] [place] [address] Liborio Sarabia MD [address] [place] [address] [place] [address] 1 year follow up Hematology/Oncology Comment on above: 1 year follow up Start: 07-14-2024 End: 07-14-2024 Patient encounter procedure 07/14/2024 3:30 PM EST Office Visit [facility] [address] [place] [address] 1 year follow up [facility] Comment on above: 1 year follow up Start: 07-14-2024 End: 10-13-2024 Cancer Ag 27-29 [Units/volume] in Serum or Plasma [facility] Work Phone: Comment on above: Expected: 07/14/2024 , Expires: 10/13/2024 Start: 06-17-2024 DIABETES SCREEN DIABETES SCREEN [facility] Start: 06-17-2024 Diabetes Screening Diabetes Screenin g [facility] Start: 05-08-2024 Covid-19 Vaccine ( season) Covid-19 Vaccine ( season) [facility] Start: 05-08-2024 Covid-19 Vaccine ( season) Covid-19 Vaccine ( season) [facility] Start: 05-08-2024 Influenza vaccination Influenza Vacc ine (#1) [facility] Start: 05-04-2024 Mammography Mammogram Screening [facility] Start: 05-04-2024 Screening for malign ant neoplasm of breast Mammogram Screening [facility] Start: 04-10-2024 Screening for malign ant neoplasm of colon [facility] Start: 05-08-2023 Influenza vaccination C [facility] Start: 05-02-2023 Mammography MAMMOGRAM [facility] Start: 09-07-2022 DEPRESSION ASSESSMENT DEPRESSION ASS [facility] Start: 06-17-2022 Adult depression screening assessment DEPRESSION SCREENING [facility] Start: 05-08-2022 Influenza vaccination C [facility] Start: 04-30-2022 Mammography MAMMOGRAM [facility] Start: 09-07-2021 [facility] Start: 2020 RSV Vaccine (1 - 1-d ose 60+ series) RSV Vaccine (1 - 1-dose 60+ series) [facility] Start: 2010 SHINGRIX VACCINE (1 of 2) SHINGRIX VACCINE (1 of 2) [facility] Start: 2005 COLOGUARD (FIT-DNA) COLOGUARD (FIT-D NA) [facility] Start: 2005 Colonoscopy COLONOSCOPY [facility] Start: 2005 COLORECTAL CANCER SCREENING COLORECTAL CANCER SCREENING [facility] Start: [address] COLONOGRAPHY [facility] Start: 2005 FECAL OCCULT BLOOD FECAL OCCULT BLOO D [facility] Start: 2005 Lipid 1996 panel - S gisell or Plasma Lipid Screening [facility] Start: 2005 Lipid panel Lipid Screening [facility] Start: 2005 LIPID SCREEN LIPID SCREEN [facility] Start: 2005 Screening for malign ant neoplasm of colon [facility] Start: 2005 SIGMOIDOSCOPY SIGMOIDOSCOPY [facility] Start: 1990 HPV TESTING HPV TESTING [facility] Start: 1981 PAP TESTING PAP TESTING [facility] Start: 1981 Screening for malign ant neoplasm of cervix Cervical Cancer Screening [facility] Start: 1979 Urine microalbumin profile [facility] Start: 1978 Anxiety Screening Anxiety Screening [facility] Start: 1978 Depression Screening Depression Scre ening [facility] Start: 1978 HEPATITIS C SCREENING HEPATITIS C [facility] Start: 1978 Hepatitis C screening Hepatitis C [facility] Start: 1978 HIV SCREENING HIV SCREENING [facility] Start: 1978 HIV screening HIV Screening [facility] Start: 1966 PNEUMOCOCCAL (1 - PCV) PNEUMOCOCCAL (1 - PCV) [facility] Start: 1965 COVID-19 VACCINE (#1) COVID-19 VACCI NE (#1) [facility] Start: 1960 COVID-19 VACCINE (#1) COVID-19 VACCI NE (#1) [facility] End: 07-16-2023 Diagnostic mammography computer-aided detcj bi [facility] Radiology Routine Malignant neoplasm of upper-outer quadrant of right breast in female, estrogen receptor positive (HCC) 1 Occurrences starting 06/16/2022 until 07/16/2023 [facility] Work Phone: Comment on above: 1 Occurrences starti ng 06/16/2022 until 07/16/2023 End: 08-14-2024 DXA-FOREARM SKELETON DXA-FOREARM SKELETON Radiology Routine Age-related osteoporosis without current pathological fracture Malignant neoplasm of upper-outer quadrant of right breast in female, estrogen receptor positive (HCC) 1 Occurrences starting 07/16/2023 until 08/14/2024 [facility] Work Phone: Comment on above: 1 Occurrences starti ng 07/16/2023 until 08/14/2024 End: 05-26-2024 MEMO SCREENING MEMO SCREENING Radiology Routine Encounter for screening mammogram for malignant neoplasm of breast 1 Occurrences starting 04/27/2023 until 05/26/2024 [facility] Work Phone: Comment on above: 1 Occurrences starti ng 04/27/2023 until 05/26/2024 End: 08-14-2024 MEMO SCREENING W FAISAL MEMO SCREENING W FAISAL Radiology Routine Age-related osteoporosis without current pathological fracture Malignant neoplasm of upper-outer quadrant of right breast in female, estrogen receptor positive (HCC) 1 Occurrences starting 07/16/2023 until 08/14/2024 [facility] Work Phone: Comment on above: 1 Occurrences starti ng 07/16/2023 until 08/14/2024 End: 08-13-2025 MG Breast Screening MEMO SCREENING Radiology Routine Encounter for screening mammogram for malignant neoplasm of breast 1 Occurrences starting 07/14/2024 until 08/13/2025 [facility] Comment on above: 1 Occurrences starti ng 07/14/2024 until 08/13/2025 [facility] Payers Date Payer Category Payer Self-pay [id number] 2016 Unknown [id number] 2012 Unknown MMO MMO [employer] [id number] 2012-Present [phone] [address] [place] [address] O [id number] 1960 Unknown [id number] 2.16.840.1.052743.3.579.2.593 1960 Unknown [id number] 2.16.840.1.319956.3.579.2.593 1960 Unknown [id number] 2.16.840.1.474794.3.579.2.593 1960 Unknown [id number] 2.16.840.1.128944.3.579.2.593 1960 Unknown [id number] 2.16.840.1.654564.3.579.2.593 1960 Unknown [id number] 2.16.840.1.136718.3.579.2.1286 1960 Unknown [id number] 2.16.840.1.418006.3.579.2.1286 1960 Unknown [id number] 2.16.840.1.046619.3.579.2.727 1960 Unknown [id number] 2.16.840.1.726378.3.579.2.727 1960 Unknown [id number] 2.16.840.1.630957.3.579.2.727 1960 Unknown [id number] 2.16.840.1.406133.3.579.2.727 1960 Unknown [id number] 2.16.840.1.517324.3.579.2.727 1960 Unknown [id number] 2.16.840.1.352016.3.579.2.727 1959 Unknown [id number] Unknown [id number] Social History Date Type Detail Facility Start: 04-25-2014 End: 02-14-2021 Tobacco smoking status NHIS Never smoked tobacco (finding) [facility] Start: 1960 Sex Assigned At Female F [facility] Start: 04-25-2014 Tobacco use and exposure Smokeless tobacco non-user [facility] Start: 06-17-2021 End: 07-14-2024 Alcohol intake Current non-drinker of alcohol (finding) [facility] Start: 1960 Sex Assigned At Not on file C [facility] Start: 06-16-2022 End: 07-16-2023 Sex Assigned At Female [facility] Start: 06-06-2022 End: 06-16-2022 Exposure to SARS-CoV-2 (event) Not sure [facility] Tobacco smoking status Never [facility] Start: 06-16-2022 End: 07-16-2023 History of Social function [facility] Functional Status Date Assessment Result Facility 06-07-2024 Functional Status N/A [facility] 02-29-2024 Functional Status N/A [facility] 08-06-2022 Functional Status N/A [facility] 03-12-2022 Functional Status N/A [facility] Clinical Notes 09-02-2012 to 07-15-2024 Telephone Encounter - Ayala James - 07/15/2024 3:33 PM ESTTelephone Encounter - Ayala James - 07/15/2024 3:33 PM ESTTelephone Encounter - Olivia Oneal RN - 07/15/2024 1:48 PM EST Note Date & Type Note Facility 07-15-2024 Telephone encounter Note Patient has been added to schedule w/ notes documented. Ayala James [facility] 07-15-2024 Miscellaneous Notes Patient has been [...] to call back with results and Dr. Saraiba's recommendations. Klever Oneal RN ----- Message from [...] out possible recurrence. documented in this encounter [facility] 07-15-2024 Telephone encounter Note Discussed results with patient. She verbalized understanding. PSS: Please schedule repeat CA27.29 for 08/11/24 at 4pm. Please put in comments patient gets out of school at 330 may be here before 4.(Patient is already aware of this appointment) BRM: Please sign pending lab order. Klever Oneal RN [facility] 07-15-2024 Telephone encounter Note Called and left a VM message for patient to call back with results and Dr. Sarabia's recommendations. Klever Oneal RN [facility] 07-15-2024 Telephone encounter Note ----- Message from Liborio Sarabia MD sent at 07/15/2024 11:48 AM [facility] ----- Please inform the patient that surprisingly her tumor marker jumped slightly. Significance is unclear, and I would suggest that we repeat the lab in 4 weeks to document significance. Findings like this typically are false alarms. However, if the lab increases any further typically we would stage to rule out possible recurrence. [facility] 07-13-2024 Note HNO ID: [id number] Author: LIBORIO SARABIA MD Service: ? Author [...] Diagnosis Date Breast cancer (HCC) Right; ER+ NE- PAST SURGICAL HISTORY: PAST SURGICAL HISTORY Procedure [...] 197 RADIOLOGY/OTHER STUDIES: 05/28/2024 Bilateral screening mammogram ([facility]) No mammographic evidence of malignancy.. Routine follow-up in 1 year recommended. 05/28/2024 Bone density DEXA ([facility]) Osteopenia. Max T score -2.4 left femoral neck, left femur, and right femur. ASSESSMENT/PLAN: 1. 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 [facility] 07-13-2024 History of Presen t illness Narrative [...] Diagnosis Date Breast cancer (HCC) Right; ER+ NE- PAST SURGICAL HISTORY: PAST SURGICAL HISTORY Procedure [...] 197 RADIOLOGY/OTHER STUDIES: 05/28/2024 Bilateral screening mammogram ([facility]) No mammographic evidence of malignancy.. Routine follow-up in 1 year recommended. 05/28/2024 Bone density DEXA ([facility]) Osteopenia. Max T score -2.4 left femoral neck, left femur, and right femur. ASSESSMENT/PLAN: 1. 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 Buckner documented in this encounter [facility] 06-07-2024 Hospital Discharg e instructions Patient [...] you may eat and drink normally. Take dewh-agp-ssoalyc and prescription medicines only as told by your health care provider. Let your health care provider know about any medicines that you are taking, including tyrj-szo-sygqizz medicines, vitamins, herbs, and supplements. Choose a [...] provider. Document Revised: 02/28/2022 Document Reviewed: 02/28/2022 [employer] Patient Education 2023 [employer]. 06/07/2024 15:56:06 Kidney Stones, [place]k-ii-Oerf Kidney Stones Kidney stones are rock-like masses [...] Follow these instructions at home: Medicines Take buqj-hgh-hlqcpuk and prescription medicines only as told by [...] provider. Document Revised: 04/17/2023 Document Reviewed: 04/17/2023 [employer] Patient Education 2023 [employer]. Follow Up Care 06/01/2024 11:18:05 With:PATRICIA STRICKLAND, Roland Barksdale, URL Address: [facility] [address] , [place] [address] [phone] When: Unknown [facility] 06-07-2024 Note Patient Education Urology 24-Hour Urine [...] may eat and drink normally. ? Take nwnr-rwf-jnvtcww and prescription medicines only as told by your health care provider. ? Let your health care provider know about any medicines that you are taking, including iezi-wcm-hpldkzm medicines, vitamins, herbs, and supplements. ? Choose [...] provider. Document Revised: 02/28/2022 Document Reviewed: 02/28/2022 [employer] Patient Education ? 2023 [employer]. Kidney Stones Kidney stones are rock-like masses [...] usually spreads to (more content not included)... [facility] 05-20-2024 Telephone encounter Note [facility] called for DX code to be added to screening mammogram order. Z12.31 added and faxed to requested # [phone]. Pt is scheduled next week. Audra Andrews RN [facility] 05-20-2024 Miscellaneous Notes [facility] called for DX code to be added to screening mammogram order. Z12.31 added and faxed to requested # [phone]. Pt is scheduled next week. Audra Andrews RN documented in this encounter [facility] 02-29-2024 Hospital Discharg e instructions Patient [...] include: ?8 oz (237 mL) of milk, nuizeax-mldwjlmttziq-sljde milk, and calcium-fortifiedfruit juice. Calcium-fortified means that [...] ?Spinach (cooked), rhubarb, beets, sweet potatoes, and Spanish chard. ?Peanuts. ?Potato chips, namibian fries, and baked potatoes with skin on. ?Nuts and nut products. ?Chocolate. If you regularly take a diuretic medicine, make sure to eat at least 1 or 2 servings of fruits or vegetables that are high in potassium each day. These include: ?Avocado. ?Banana. ?[place], prune, carrot, or tomato juice. ?Baked potato. [...] magnesium, fish oil, or vitamin B6. Take wpum-wth-himtiuu and prescription medicines only as told by [...] Casseroles. Pizza. Lasagna. Frozen meals. Potato chips. [place] fries. The items listed above may not [...] provider. Document Revised: 12/04/2022 Document Reviewed: 12/04/2022 [employer] Patient Education 2022 [employer]. Follow Up Care 08/06/2022 16:16:25 With:PATRICIA STRICKLAND, Roland Barksdale, URL Address: [facility] [address], [place] [address] [phone] When: Unknown Comments:1 yr w/ PATRICIA [facility] 07-17-2023 Evaluation note Encounter Date Diagnosis Assessment Notes Jul, Malignant neoplasm of upper-outer quadrant of right female breast (ICD-10 - C50.411) Lumpectomy 2011, adjuvent chemotherapy, adjuvent radiation therapy, completed 9 years hormone therapy Jul, Estrogen receptor positive status [ER+] (ICD-10 - Z17.0) [facility] Other [id number] Nurse Note* Akua Jorge MA - 07/16/2023 3:02 PM EST Patient would like opinion on right hand pinky finger she has a bump her PCP looked at it said it was probably a cyst but she would still like your opinion, it has not changed at all. Akua Jorge MA [facility] History of Present illness Narrative* Liborio [...] Diagnosis Date Breast cancer (HCC) Right; ER+ NE- PAST SURGICAL HISTORY: PAST SURGICAL HISTORY Procedure [...] 197 RADIOLOGY/OTHER STUDIES: 05/04/2023 Bilateral diagnostic mammogram ([facility]) Stable postsurgical change in the right breast. No mammographic evidence of malignancy.. Routine follow-up in 1 year recommended. 05/02/2022 Bone density DEXA ([facility]) Osteoporosis. Max T score -2.6 left femoral neck, left femur, and right femur. ASSESSMENT/PLAN: 1. 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 Buckner documented in [facility] Evaluation note* Encounter Date Diagnosis Assessment [...] to the patient. Recommend referral for excision. [facility] Other 08-21-2023 Miscellaneous Notes* Telephone Encounter - Ayala James - 04/27/2023 4:23 PM EDT Received order at front attendant. Faxed order April 27, 2023 4:23 PM [...] pended for signature. PSS: Please fax to [phone] Thanks. Dipti Baumann RN documented in this encounterProm[facility]02-21-2023 Evaluation note* Encounter Date Diagnosis Assessment [...] to ER immediately, Conjunctivitis material was printed [facility] Other 11-30-2022 Hospital Discharge instructions Patient Education [...] include: ?Spinach. ?Rhubarb. ?Beets. ?Potato chips and namibian fries. ?Nuts. If you regularly take a diuretic medicine, make sure to eat at least 1 2 fruits or vegetables high in potassium each day. These include: ?Avocado. ?Banana. ?[place], prune, carrot, or tomato juice. ?Baked potato. [...] Casseroles. Pizza. Lasagna. Frozen meals. Potato chips. [place] fries. Summary You can reduce your risk [...] 12/19/2011 Document Revised: 12/14/2019 Document Reviewed: 08/04/2017 [employer] Patient Education 2019 [employer]. Follow Up Care 04/30/2022 15:39:48 With:PATRICIA STRICKLAND, Roland Barksdale, URL Address: [facility] [address] [place] [address]- When: Unknown [facility] James 10-10-2022 History of Present illness [...] Diagnosis Date Breast cancer (HCC) Right; ER+ NE- PAST SURGICAL HISTORY: PAST SURGICAL HISTORY Procedure [...] 197 RADIOLOGY/OTHER STUDIES: 05/02/2022 Bone density DEXA ([facility]) Osteoporosis. Max T score -2.6 left femoral neck, left femur, and right femur. And left femur 05/02/2022 Bilateral diagnostic mammogram ([facility]) Stable postsurgical change in the right breast. No mammographic evidence of malignancy or significant change. Routine follow-up in 1 year recommended. ASSESSMENT/PLAN: 1. 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 Buckner documented in this encounterProm[facility]07-[facility]22 Hospital Discharge instructions Patient Education 03/12/2022 [...] Follow these instructions at home: Medicines Take eghg-ova-yfovydc and prescription medicines only as told by [...] 08/24/2006 Document Revised: 01/10/2020 Document Reviewed: 01/10/2020 [employer] Patient Education 2019 [employer]. Follow Up Care 02/13/2022 09:45:15 With:PATRICIA STRICKLAND, Roland Barksdale, URL Address: [facility] [address] , [place] [address]- When:3 months Comments:w/metabolic workup [facility] James 05-23-2022 Miscellaneous Notes* Telephone Encounter [...] appropriate Ryan Daniels APRN.CNP documented in this encounterProm[facility]12-27-2012 History of Past illness Narrative* Problem Noted Date Resolved Date Breast CA 09/02/2012 09/16/2018 Overview: Right; ER+ NE-; HER2 - documented as of this encounter (statuses as of 01/28/2022) [facility]12-27-2012 History of Past illness Narrative* Problem Noted Date Resolved Date Breast CA 09/02/2012 09/16/2018 Overview: Right; ER+ NE-; HER2 - documented as of this encounter (statuses as of 06/17/2022) [facility]12-27-2012 History of Past illness Narrative* Problem Noted Date Diagnosed Date Resolved Date Breast CA 09/02/2012 09/16/2018 Overview: Right; ER+ NE-; HER2 - documented as of this encounter (statuses as of 04/28/2023) [facility]12-27-2012 History of Past illness Narrative* Problem Noted Date Diagnosed Date Resolved Date Breast CA 09/02/2012 09/16/2018 Overview: Right; ER+ NE-; HER2 - documented as of this encounter (statuses as of 07/17/2023) [facility] Future Appointments Appointment Date:06/23/2022 03:00:00 PM Scheduled Provider:Roland VELEZ MD Location:[facility] Appointment Type:URO Office Visit [facility] Evaluation + Plan note Future Appointments Appointment Date:08/10/2023 02:45:00 PM Scheduled Provider:Roland VELEZ MD Location:[facility] Appointment Type:URO Office Visit [facility] Evaluation + Plan note Future Appointments Appointment Date:03/03/2025 08:45:00 AM Scheduled Provider:Roland VELEZ MD Location:[facility] Appointment Type:URO Office Visit [facility] evaluation + Plan note Future Appointments Appointment Date:08/30/2024 09:00:00 AM Scheduled Provider:DIPTI TOVAR PA-C Location:[facility] Appointment Type:URO Office Visit Appointment Date:03/03/2025 08:45:00 AM Scheduled Provider:Roland VELEZ [facility] Type:[facility]O Office Visit [facility] Evaluation noteNo assessment information available [facility] Diagnosis Malignant neoplasm of upper-outer quadrant of right breast in female, estrogen receptor positive (HCC)- Primary Age-related osteoporosis without current pathological fracture Senile osteoporosis documented in this encounter [facility] note* Diagnosis Encounter for screening mammogram for malignant neoplasm of breast- Primary Other screening mammogram documented in this encounter [facility] note* Diagnosis Malignant neoplasm of upper-outer quadrant of right breast in female, estrogen receptor positive (HCC)- Primary Age-related osteoporosis without current pathological fracture Senile osteoporosis documented in this encounter [facility] note* Diagnosis Malignant neoplasm of upper-outer quadrant of right breast in female, estrogen receptor positive (HCC)- Primary Encounter for screening mammogram for malignant neoplasm of breast Other screening mammogram documented in this encounter [facility] note* Diagnosis Malignant neoplasm of upper-outer quadrant of right breast in female, estrogen receptor positive (HCC)- Primary documented in this encounter [facility] general Narrative - Reported* Type Description Date Medical History Breast cancer Surgical History appendectomy Surgical History tonsillectomy Surgical History lumpectomy, right breast x2 201 2 Hospitalization History see above surgical histo [facility] Other History general Narrative - Reported* Type Description Date Medical History Breast cancer Medical History Nephrolithiasis Medical History Osteopenia of lumbar spine Surgical History appendectomy Surgical History tonsillectomy Surgical History lumpectomy, right breast x2 201 2 Hospitalization History see above surgical histo [facility] Other Hospital course Narrative No data available for this section [facility] Progress note No data available for this section [facility] Reason for referral (narrative)* Diagnostic Procedure Only (Routine) - Pending Review Specialty Diagnoses / Procedures Referred By Contac t Referred To Contact [facility] Diagnoses Malignant neoplasm of upper-outer quadrant of right breast in female, estrogen receptor positive (HCC) Procedures MEMO DIAGNOSTIC BILAT DIAGNOSTIC MAMMOGRAPHY COMPUTER-AIDED DETCJ Liborio Miranda MD [address] [place] [address] [place] [address] [facility] [address] [place] [id number] Referral ID Status Reason Start Date Expiration Date Visits Requested Visits Authorized [id number] Pending Review Auto-Generat ed Referral 07/16/2023 1 1 [facility] for referral (narrative)* Diagnostic Procedure Only (Routine) - Pending Review Specialty Diagnoses / Procedures Referred By Contac t Referred To Contact [facility] Diagnoses Encounter for screening mammogram for malignant neoplasm of breast Procedures MEMO SCREENING SCREENING MAMMOGRAPHY BI 2-VIEW BREAST INC Liborio Chau MD [address] [place] [address] [place] [address] [facility] [address] [place] [address] Referral ID Status Reason Start Date Expiration Date Visits Requested Visits Authorized [id number] Pending Review Auto-Generat ed Referral 04/27/2023 05/26/2024 1 1 [facility] for referral (narrative)* Diagnostic Procedure Only (Routine) - Pending Review Specialty Diagnoses / Procedures Referred By Contac t Referred To Contact [facility] IMAGING Diagnoses Age-related osteoporosis without current pathological fracture Malignant neoplasm of upper-outer quadrant of right breast in female, estrogen receptor positive (HCC) Procedures DXA-FOREARM SKELETON DXA BONE DENSITY STUDY 1/>SITES APPENDICLR Liborio Morales MD [address] [place] [address] [place] [address] [place] [address] Referral ID Status Reason Start Date Expiration Date Visits Requested Visits Authorized [id number] Pending Review Auto-Generat ed Referral 07/16/2023 08/14/2024 [...] BI 2-VIEW BREAST INC Liborio Chau MD [address] [place] [address] [place] [address] [facility] [address] [place] [address] Referral ID Status Reason Start Date Expiration Date Visits Requested Visits Authorized [id number] Pending Review Auto-Generat ed Referral 07/16/2023 08/14/2024 1 1 [facility] Diagnostic Procedure Only (Routine) - New Request Specialty Diagnoses / Procedures Referred By Contac t Referred To Contact [facility] Diagnoses Encounter for screening mammogram for malignant neoplasm of breast Procedures MEMO SCREENING SCREENING MAMMOGRAPHY BI 2-VIEW BREAST INC CAD Liborio Sarabia MD [address] [place] [address] [place] [address] [facility] [address] [place] [address] Referral ID Status Reason Start Date Expiration Date Visits Requested Visits Authorized [id number] New Request Auto-Generat ed Referral 07/14/2024 08/13/2025 1 1 [facility] Chief Complaint and Reason for [...] or prosecute any alcohol or drug abuse patient.[facility] HospitalIn the event this information is protected by the Federal Confidentiality of Alcohol and Drug Abuse Patient Records regulations: The Federal rules restrict any use of the information to criminally investigate or prosecute any alcohol or drug abuse patient.[facility] HospitalIn the event this information is protected by the Federal Confidentiality of Alcohol and Drug Abuse Patient Records regulations: The Federal rules restrict any use of the information to criminally investigate or prosecute any alcohol or drug abuse patient.[facility] Hospital[facility] the event this information is protected by the Federal Confidentiality of Alcohol and Drug Abuse Patient Records regulations: The Federal rules restrict any use of the information to criminally investigate or prosecute any alcohol or drug abuse patient.[facility] Hospital[facility] the event this information is protected by the Federal Confidentiality of Alcohol and Drug Abuse Patient Records regulations: The Federal rules restrict any use of the information to criminally investigate or prosecute any alcohol or drug abuse patient.[facility] HospitalIn the event this information is protected by the Federal Confidentiality of Alcohol and Drug Abuse Patient Records regulations: The Federal rules restrict any use of the information to criminally investigate or prosecute any alcohol or drug abuse patient.[facility] HospitalIn the event this information is protected by the Federal Confidentiality of Alcohol and Drug Abuse Patient Records regulations: The Federal rules restrict any use of the information to criminally investigate or prosecute any alcohol or drug abuse patient.[facility] Hospital[facility] the event this information is protected by the Federal Confidentiality of Alcohol and Drug Abuse Patient Records regulations: The Federal rules restrict any use of the information to criminally investigate or prosecute any alcohol or drug abuse patient.[facility] HospitalIn the event this information is protected by the Federal Confidentiality of Alcohol and Drug Abuse Patient Records regulations: The Federal rules restrict any use of the information to criminally investigate or prosecute any alcohol or drug abuse patient.[facility] Reason for Visit (unrecogniz ed section and content) Reason Comments Refill Request Reason Comments Breast Cancer Reason Comments Orders Reason Comments Breast Cancer 1 year follow up Reason Comments DX code for screening mammogram needed Reason Comments Breast Cancer Follow up Care Teams (unrecognized sec tion and content) Glass Etcher Relationship Specialty Start Date End Date Samm Palmer PCP - General Family Practice 01/15/12 Glass Etcher Relationship Specialty Start Date End Date Juma Buckner DO [address] [place] [address] PCP - General Internal Medicine 06/16/22 Glass Etcher Relationship Specialty Start Date End Date Juma Buckner DO [address] [place] [address] PCP - General Internal Medicine 06/16/22 Glass Etcher Relationship Specialty Start Date End Date Juma Buckner DO [address] [place] [address] PCP - General Internal Medicine 06/16/22 Team [...] Attending Provider Active Start: April 13, 2024 Glass Etcher Relationship Specialty Start Date End Date Juma Buckner DO [address] [place] [address] PCP - General Internal Medicine 06/16/22 Glass Etcher Relationship Specialty Start Date End Date Juma Buckner DO [address] [place] [address] PCP - General Internal Medicine 06/16/22 Glass Etcher Relationship Specialty Start Date End Date Juma Buckner DO [address] [place] [address] PCP - General Internal Medicine 06/16/22 Glass Etcher Relationship Specialty Start Date End Date Juma Buckner DO [address] [place] [address] PCP - General Internal Medicine 06/16/22 INFORMATION SOURCE (unrecogn ized section and content) DATE CREATED AUTHOR 04/08/2022 [facility] DATE CREATED AUTHOR AUTHOR'S ORGANIZ ATION 04/20/2024 [facility] DATE CREATED AUTHOR AUTHOR'S ORGANIZ ATION 05/30/2024 [facility] DATE CREATED AUTHOR AUTHOR'S ORGANIZ ATION 06/09/2024 [facility] DATE CREATED AUTHOR AUTHOR'S ORGANIZ ATION 07/18/2024 [facility] FOR RECORDS PERTAINING TO PATIENTS WHO ARE [...] BE BASED ON THE PRIMARY CLINICAL RECORDS. [facility] provides no warranty or guarantee of the accuracy or completeness of information in this document.
[2024-08-01 08:03] LABS: Calcium 8.6 mg/dL (8.5-10.1); Carbon Dioxide 26.9 mmol/L (21.0-32.0); Chloride 104 mmol/L (98-107); Estimated GFR (African America >60 (>=60 mL/min/1.73m^2); Estimated GFR (Non-African Ame 54 (>=60 mL/min/1.73m^2); Phosphorus 3.9 mg/dL (2.6-4.7); Sodium 142 mmol/L (136-145); Uric Acid 3.7 mg/dL (2.6-6.0)
[2024-08-01 09:33] LABS: Calcium Urine Random 7.2 mg/dL (5.1-21.0); Creatinine Urine Random 40.45 mg/dL (20.00-300.00); Sodium Urine Random 53 mmol/L (30-90)
[2024-08-01 09:34] LABS: Total Volume 24 Hour Urine 2150 mL/24hr
[2024-08-01 09:39] LABS: Creatinine 24 Hour Urine 869.68 mg/24 hr (800.00-1800.00)
[2024-08-01 09:40] LABS: Calcium 24 Hour Urine 154.8 mg/24hr (100.0-300.0); Sodium 24 Hour Urine 114 mmol/24h (40-220)
[2024-08-02 04:07] LABS: Uric Acid, Urine 15.6 mg/dL (Not Estab.); Uric Acid,Urine 24hr 335.4 mg/24 hr (142.3-713.2)
[2024-08-02 09:09] LABS: Magnesium, U 4.9 mg/dL (Not Estab.); Magnesium,Urine 24hr 105.4 mg/24 hr (12.0-293.0); Phosphorus, Urine 30.9 mg/dL (Not Estab.); Phosphorus,Urine 24h 664 mg/24 hr (261-1078)
[2024-08-02 12:10] LABS: PTH, Intact 38 pg/mL (15-65)
[2024-08-02 14:09] LABS: Citric Acid, U, 24hr 677 mg/24 hr (320-1240); Citric Acid, Urine 315 mg/L (Undefined)
== END 2024-08-01 07:36 | disposition home or self-care (01) ==
PROVIDERS: PCP Internal Medicine; Visit Provider Urology
DX: N20.0 Calculus of kidney (principal)
CPT/HCPCS: 36415; 81050; 82310; 82340; 82374; 82435; 82507; 82565; 82570; 83735; 83945; 83970; 84100; 84105; 84295; 84300; 84520; 84550; 84560

== ENCOUNTER 2024-08-20 10:24 | Outpatient (OUT) | payer OTHER, SELFPAY ==
--- NOTE | 2024-08-20 | XR_ITS ---
The [address] [address] Patient Name: ALBERT ABREU MRN: [id number] date: 1960 Sex: F Assigned Patient Location: [facility] Current Patient Location: Accession/Order Number: [id number] Exam Date: 08/20/2024 11:05 Report Date: 08/22/2024 07:43 At the request of: ROLAND GOMEZ Procedure: XR abdomen 1V EXAMINATION: XR abdomen 1V HISTORY: KIDNEY STONE N20.0 COMPARISON: 04/22/2024 FINDINGS: KIDNEY/URETER - RIGHT: Stable 6 mm nephrolith KIDNEY/URETER - LEFT: No visible renal or ureteral calcifications. PELVIS: No visible ureteral calcifications. Any visible calcifications favor phleboliths. BOWEL: No abnormal dilation or deviation. Moderate stool BONES: No acute abnormality. Rotatory dextroscoliosis OTHER: Negative. No abnormal gaseous collections. XR/XR abdomen 1V IMPRESSION: Suspected right 6 mm nephrolith Electronically authenticated by: JOSH MORTON Date: 08/22/2024 07:43
--- OUTSIDE RECORDS SUMMARY | 2024-08-20 10:29 | XMS_ITS | CCD ---
Author Organization [facility] Care Team Providers Care Gaggerman Name Role Phone Adrian Oneal Jr Attending Provider [phone] Juma Buckner Primary Care Provider [phone] Samm Palmer Primary Care Provider JUMA BUCKNER [...] Care Provider DO Juma Buckner Attending Provider [phone] Juma Buckner Attending Unavailable Juma Buckner Primary [...] source) Cephalexin Drug Allergy 1 [facility] (19 sources) Cephalexin; Translations: [cephalexin] Drug Allergy 7 Unknown, Weal (disorder) [facility] (5 sources) Cephalexin; Translations: [Keflex] Drug Allergy [facility] (1 source) Cephalexin Drug Allergy 3 [facility] Repository Medications Current Medications Medication Drug Class(es) Dates Sig (Normalized) Sig (Original) anastrozole 1 mg oral tablet (13 sources) Aromatase Inhibitor Start: 11-07-2019 anastrozole (ARIMIDEX) [...] 2021 10:30am Calcium Carbonate / vitamin D3 (11 sources) CALCIUM CARBONAT E/VITAMIN D3 (CALCIUM + [...] Antibacterial, Polymyxin-class Antibacterial, Corticosteroid Start: 10-28-2022 Maxitrol 3.5-99522-0.1 apply directly under left eyelashes Ophthalmic Three [...] potassium bicarbonate 25 meq effervescent oral tablet (11 sources) Start: 03-30-2023 KLOR-CON/EF 25 mEq disintegrating tablet 03/30/2023 Active potassium citrate 10 meq extended release oral tablet (2 sources) Start: 02-29-2024 End: 02-23-2025 potassium CITRATE 10 mEq ER Tab 20 mEq, 2 tab(s), Oral, BID for 30 day(s), 120 tab(s), Refill(s) [address] [place], [place] [id number], 165, cm, 02/29/24 11:29:00 EDT, Height/Length Dosing, [...] 3, Pharmacy: [facility] #[id number], 165, cm, 08/06/22 15:18:00 EST, Height/Length Dosing, [...] Episodic Other bone disease and musculoskeletal deformities (11 sources) Osteopenia; Translations: [Other specified disorders of bone density and structure, unspecified site] Onset: 09-18-2018 09-18-2018 Episodic Results Test Name Value Interpretation Reference Range Facility [facility] 07-15-2024 CNPN Telephone (HEMTSA) ALBERT ROBERTS ([id number]) 1960 F Date Time Provider Department 07/15/24 [facility] During your visit today, we recorded the [...] positive (HCC) [C50.411, Z17.0] Order(s):CA 27.29 BLOOD [[id number]] Order #: [id number] FUTURE Prescriptions as of 07/17/2024 - KLOR-CON/EF [...] Status:Closed by LIBORIO SARABIA on 07/17/[address] [facility] CBC W Auto Differential pane l (Bld)on 07-14-2024 Basophils (Bld) [#/Vol] 0.04 10*3/uL [facility] Basophils/100 WBC (Bld) 0.9 % [facility] Differential cell count method Nom (Bld) Auto [facility] Eosinophils (Bld) [#/Vol] 0.13 10*3/uL [facility] Eosinophils/100 WBC (Bld) 2.8 % [facility] Erythrocyte distribution width (RBC) [Ratio] 12.6 % 11.5 - 15.0 % [facility] Hematocrit (Bld) [Volume fraction] 42.0 % 36.0 - 46.0 % [facility] Hemoglobin (Bld) [Mass/Vol] 14.2 g/dL 11.5 - 15.5 g/dL [facility] Immature granulocytes (Bld) [#/Vol[facility] Immature granulocytes/100 WBC (Bld) 0.2 % [facility] Lymphocytes (Bld) [#/Vol] 1.22 10*3/uL [facility] Lymphocytes/100 WBC (Bld) 26.6 % [facility] MCH (RBC) [Entitic mass] 30.9 pg 26.0 - 34.[address] [facility] MCHC (RBC) [Mass/Vol] 33.8 g/dL 30.5 - 36.0 g/dL [facility] MCV (RBC) [Entitic vol] 91.5 fL 80.0 - 100.[address] [facility] Monocytes (Bld) [#/Vol] 0.47 10*3/uL [facility] Monocytes/100 WBC (Bld) 10.3 % [facility] Neutrophils (Bld) [#/Vol] 2.71 10*3/uL [facility] Neutrophils/100 WBC (Bld) 59.2 % [facility] Nucleated RBC (Bld) [#/Vol] [facility] Nucleated RBC/100 WBC (Bld) [Ratio] 0.0 % /[address] [facility] Platelet mean volume (Bld) [Entitic vol] 10.6 fL 9.0 - 12.[address] [facility] Platelets (Bld) [#/Vol] 220 10*3/uL [facility] RBC (Bld) [#/Vol] 4.59 10*6/uL 3.90 - 5.2 0 m/uL [facility] WBC (Bld) [#/Vol] 4.58 10*3/uL [facility] Basophils (Bld) [#/Vol] 0.04 10*3/uL Normal <0.11 [facility] Comment on above: Order Comment: Speci men Type: BLOOD SPECIMEN Ordering Facility: [facility] Address: [address] [place], [place] [address] Performed By: #### 5 7021-8 #### [facility] CLIA [id number] [address] [place] [address]262 Basophils/100 WBC (Bld) 0.9 % Normal [facility] Comment on above: Order Comment: Speci men Type: BLOOD SPECIMEN Ordering Facility: [facility] Address: [address] [place] [address] Performed By: #### 5 7021-8 #### [facility] CLIA [id number] [address] [place] [address]87 Differential cell count method Nom (Bld) Auto Normal [facility] Comment on above: Order Comment: Speci men Type: BLOOD SPECIMEN Ordering Facility: [facility] Address: [address] [place] [address] Performed By: #### 5 7021-8 #### [facility] CLIA [id number] [address] [place] [address] 26766 Eosinophils (Bld) [#/Vol] 0.13 10*3/uL Normal <0.46 [facility] Comment on above: Order Comment: Speci men Type: BLOOD SPECIMEN Ordering Facility: [facility] Address: [address] [place] [address] Performed By: #### 5 7021-8 #### [facility] CLIA [id number] [address] [place] [address] 92228 Eosinophils/100 WBC (Bld) 2.8 % Normal [facility] Comment on above: Order Comment: Speci men Type: BLOOD SPECIMEN Ordering Facility: [facility] Address: [address] [place] [address] Performed By: #### 5 7021-8 #### [facility] CLIA [id number] [address] [place] [address]258 Erythrocyte distribution width (RBC) [Ratio] 12.6 % Normal 11.5-15.0 [facility] Comment on above: Order Comment: Speci men Type: BLOOD SPECIMEN Ordering Facility: [facility] Address: [address] [place] [address] Performed By: #### 5 7021-8 #### [facility] CLIA [id number] [address] [place] [address] Hematocrit (Bld) [Volume fraction] 42.0 % Normal 36.0-46.0 [facility] Comment on above: Order Comment: Speci men Type: BLOOD SPECIMEN Ordering Facility: [facility] Address: [address] [place] [address] Performed By: #### 5 7021-8 #### [facility] CLIA [id number] [address] [place] [address]60 Hemoglobin (Bld) [Mass/Vol] 14.2 g/dL Normal 11.5-15.5 [facility] Comment on above: Order Comment: Speci men Type: BLOOD SPECIMEN Ordering Facility: [facility] Address: [address] [place] [address] Performed By: #### 5 7021-8 #### [facility] CLIA [id number] [address] [place] [address] 86377 Immature granulocytes (Bld) [#/Vol] 10*3/uL Normal <0.10 [facility] Comment on above: Order Comment: Speci men Type: BLOOD SPECIMEN Ordering Facility: [facility] Address: [address] [place] [address] Performed By: #### 5 7021-8 #### [facility] CLIA [id number] [address] [place] [address] 79507 Immature granulocytes/100 WBC (Bld) 0.2 % Normal [facility] Comment on above: Order Comment: Speci men Type: BLOOD SPECIMEN Ordering Facility: [facility] Address: [address] [place] [address] Performed By: #### 5 7021-8 #### [facility] CLIA [id number] [address] [place] [address] 86676 Lymphocytes (Bld) [#/Vol] 1.22 10*3/uL Normal 1.00-4.00 [facility] Comment on above: Order Comment: Speci men Type: BLOOD SPECIMEN Ordering Facility: [facility] Address: [address] [place] [address] Performed By: #### 5 7021-8 #### [facility] CLIA [id number] [address] [place] [address] 75305 Lymphocytes/100 WBC (Bld) 26.6 % Normal [facility] Comment on above: Order Comment: Speci men Type: BLOOD SPECIMEN Ordering Facility: [facility] Address: [address] [place] [address] Performed By: #### 5 7021-8 #### [facility] CLIA [id number] [address] [place] [address] 57911 MCH (RBC) [Entitic mass] 30.9 pg Normal 26.0-34.0 [facility] Comment on above: Order Comment: Speci men Type: BLOOD SPECIMEN Ordering Facility: [facility] Address: [address] [place] [address] Performed By: #### 5 7021-8 #### [facility] CLIA [id number] [address] [place] [address]82 MCHC (RBC) [Mass/Vol] 33.8 g/dL Normal 30.5-36.0 [facility] Comment on above: Order Comment: Speci men Type: BLOOD SPECIMEN Ordering Facility: [facility] Address: [address] [place] [address] Performed By: #### 5 7021-8 #### [facility] CLIA [id number] [address] [place] [address] 75439 MCV (RBC) [Entitic vol] 91.5 fL Normal 80.0-100.0 [facility] Comment on above: Order Comment: Speci men Type: BLOOD SPECIMEN Ordering Facility: [facility] Address: [address] [place] [address] Performed By: #### 5 7021-8 #### [facility] CLIA [id number] [address] [place] [address] 35755 Monocytes (Bld) [#/Vol] 0.47 10*3/uL Normal <0.87 [facility] Comment on above: Order Comment: Speci men Type: BLOOD SPECIMEN Ordering Facility: [facility] Address: [address] [place] [id number] Performed By: #### 5 7021-8 #### [facility] CLIA [id number] [address] [place] [address] 78245 Monocytes/100 WBC (Bld) 10.3 % Normal [facility] Comment on above: Order Comment: Speci men Type: BLOOD SPECIMEN Ordering Facility: [facility] Address: [address] [place] [address] Performed By: #### 5 7021-8 #### [facility] CLIA [id number] [address] [place] [address] 16137 Neutrophils (Bld) [#/Vol] 2.71 10*3/uL Normal 1.45-7.50 [facility] Comment on above: Order Comment: Speci men Type: BLOOD SPECIMEN Ordering Facility: [facility] Address: [address] [place] [address] Performed By: #### 5 7021-8 #### [facility] CLIA [id number] [address] [place] [address] 80510 Neutrophils/100 WBC (Bld) 59.2 % Normal [facility] Comment on above: Order Comment: Speci men Type: BLOOD SPECIMEN Ordering Facility: [facility] Address: [address] [place] [address] Performed By: #### 5 7021-8 #### [facility] CLIA [id number] [address] [place] [address] 27843 Nucleated RBC (Bld) [#/Vol] 10*3/uL Normal <0.01 [facility] Comment on above: Order Comment: Speci men Type: BLOOD SPECIMEN Ordering Facility: [facility] Address: [address] [place] [address] Performed By: #### 5 7021-8 #### [facility] CLIA [id number] [address] [place] [address] Nucleated RBC/100 WBC (Bld) [Ratio] 0.0 /[address] [facility] Comment on above: Order Comment: Speci men Type: BLOOD SPECIMEN Ordering Facility: [facility] Address: [address] [place] [address] Performed By: #### 5 7021-8 #### [facility] CLIA [id number] [address] [place] [address] Platelet mean volume (Bld) [Entitic vol] 10.6 fL Normal 9.0-12.7 [facility] Comment on above: Order Comment: Speci men Type: BLOOD SPECIMEN Ordering Facility: [facility] Address: [address] [place] [address] Performed By: #### 5 7021-8 #### [facility] CLIA [id number] [address] [place] [address] 91487 Platelets (Bld) [#/Vol] 220 10*3/uL Normal 150-400 [facility] Comment on above: Order Comment: Speci men Type: BLOOD SPECIMEN Ordering Facility: [facility] Address: [address] [place] [address] Performed By: #### 5 7021-8 #### [facility] CLIA [id number] [address] [place] [address] RBC (Bld) [#/Vol] 4.59 10*6/uL Normal 3.90-5.20 [facility] Comment on above: Order Comment: Speci men Type: BLOOD SPECIMEN Ordering Facility: [facility] Address: [address] [place] [address] Performed By: #### 5 7021-8 #### [facility] CLIA [id number] [address] [place] [address] WBC (Bld) [#/Vol] 4.58 10*3/uL Normal 3.70-11.00 [facility] Comment on above: Order Comment: Speci men Type: BLOOD SPECIMEN Ordering Facility: [facility] Address: [facility], [place] [address] Performed By: #### 5 7021-8 #### [facility] CLIA [id number] [address] [place] [address] 45021 CNOVSPon 07-14-2024 CNOVSP Visit (SP) Office (HEMAS[place]) LOISALBERT MORENO ([id number]) 1960 F Date Time Provider Department 07/14/24 [...] Diagnosis Date Breast cancer (HCC) Right; ER+ [facility]- PAST SURGICAL HISTORY: PAST SURGICAL HISTORY Procedure [...] 197 RADIOLOGY/OTHER STUDIES: 05/28/2024 Bilateral screening mammogram ([facility] [employer]) No mammographic evidence of malignancy.. Routine follow-up in 1 year recommended. 05/28/2024 Bone density DEXA ([facility]) Osteopenia. Max T score -2.4 left femoral neck, left femur, and right femur. ASSESSMENT/PLAN: 1. 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 Normal [facility] Cancer Ag27-29 SerPl-aCncon 07-14-2024 Cancer Ag 27-29 Qn 48.5 [arb'U]/mL High [facility].6 [facility] on above: Order Comment: Speci men Type: BLOOD SPECIMEN Ordering Facility: [facility] Address: [address] [place] [address] Result Comment: The CA27.29 test was performed using the Siemens NeuroQuestaur XP chemiluminometric immunoassay method. Results obtained with different assay methods or kits cannot be used interchangeably. Performed By: #### 1 7842-6 #### [facility] CLIA [id number] [address] [place] [address] [place] [address] [place] Comprehensive metabolic 2000 panelOrdered By: Lisa Mayes on 07-14-2024 Albumin [Mass/Vol] 4.6 g/dL 3.9 - 4.9 g/dL [facility] ALP [Catalytic activity/Vol] 87 U/L 34 - 123 U/L [facility] ALT [Catalytic activity/Vol] 14 U/L 7 - 38 U/L [facility] Anion gap [Moles/Vol] 11 mmol/L 8 - 15 mmol/L [facility] AST [Catalytic activity/Vol] 23 U/L 13 - 35 U/L [facility] Bilirubin [Mass/Vol] 0.4 mg/dL 0.2 - 1 .3 mg/dL [facility] Calcium [Mass/Vol] 9.7 mg/dL 8.5 - 10. 2 mg/dL [facility] Chloride [Moles/Vol] 102 mmol/L 98 - 10 7 mmol/L [facility] CO2 [Moles/Vol] 27 mmol/L 22 - 30 mmol/L [facility] Creatinine [Mass/Vol] 0.95 mg/dL 0.58 - 0.96 mg/dL [facility] GFR/1.73 sq M.predicted among non-blacks MDRD (S/P/Bld) [Vol rate/Area] 67 mL/min/{1.73_m2} - PINF [facility] Comment on above: Estimated Glomerular Filtration [...] [Mass/Vol] 97 mg/dL 74 - 99 mg/dL [facility] Comment on above: The [place] Diabete s Association (ADA) provides guidance for [...] Standards of Medical Care in Diabetes 2016, [place] Diabetes Association. Diabetes Care. 2016.39(Suppl 1). Interpretation and review of laboratory results Normal [facility] Potassium [Moles/Vol] 4.2 mmol/L 3.7 - 5.1 mmol/L [facility] Protein [Mass/Vol] 6.6 g/dL 6.3 - 8.0 g/dL [facility] Sodium [Moles/Vol] 140 mmol/L 136 - 144 mmol/L [facility] Urea nitrogen [Mass/Vol] 20 mg/dL 7 - 21 mg/dL [facility] Comprehensive metabolic 2000 panelon 07-14-2024 Albumin [Mass/Vol] 4.6 g/dL Normal 3.9-4.9 [facility] Comment on above: Order Comment: Speci men Type: BLOOD SPECIMEN Ordering Facility: [facility] Address: [address] [place] [address] Performed By: #### 2 4323-8 #### [facility] CLIA [id number] [address] [place] [address]48 ALP [Catalytic activity/Vol] 87 U/L Normal 34-123 [facility] Comment on above: Order Comment: Speci men Type: BLOOD SPECIMEN Ordering Facility: [facility] Address: [address] [place] [address] Performed By: #### 2 4323-8 #### [facility] CLIA [id number] [address] [place] [address] 08297 ALT [Catalytic activity/Vol] 14 U/L Normal 7-38 [facility] Comment on above: Order Comment: Speci men Type: BLOOD SPECIMEN Ordering Facility: [facility] Address: [address] [place] [address] Performed By: #### 2 4323-8 #### [facility] CLIA [id number] [address] [place] [address] 31437 Anion gap [Moles/Vol] 11 mmol/L Normal 8-15 [facility] Comment on above: Order Comment: Speci men Type: BLOOD SPECIMEN Ordering Facility: [facility] Address: [address] [place] [address] Performed By: #### 2 4323-8 #### [facility] CLIA [id number] [address] [place] [address] AST [Catalytic activity/Vol] 23 U/L Normal 13-35 [facility] Comment on above: Order Comment: Speci men Type: BLOOD SPECIMEN Ordering Facility: [facility] Address: [address] [place] [place] [id number] Performed By: #### 2 4323-8 #### [facility] CLIA [id number] [address] [place] [address] Bilirubin [Mass/Vol] 0.4 mg/dL Normal 0.2-1.[address] [facility] Comment on above: Order Comment: Speci men Type: BLOOD SPECIMEN Ordering Facility: [facility] Address: [address] [place] [address] Performed By: #### 2 4323-8 #### [facility] CLIA [id number] [address] [place] [address] Calcium [Mass/Vol] 9.7 mg/dL Normal 8.5-10.2 [facility] Comment on above: Order Comment: Speci men Type: BLOOD SPECIMEN Ordering Facility: [facility] Address: [address] [place] [address] Performed By: #### 2 4323-8 #### [facility] CLIA [id number] [address] [place] [address] Chloride [Moles/Vol] 102 mmol/L Normal 98-[address] [facility] Comment on above: Order Comment: Speci men Type: BLOOD SPECIMEN Ordering Facility: [facility] Address: [address] [place] [place] [id number] Performed By: #### 2 4323-8 #### [facility] CLIA [id number] [address] [place] [address] CO2 [Moles/Vol] 27 mmol/L Normal 22-30 [facility] Comment on above: Order Comment: Speci men Type: BLOOD SPECIMEN Ordering Facility: [facility] Address: [address] [place] [address] Performed By: #### 2 4323-8 #### [facility] CLIA [id number] [address] [place] [address] 67856 Creatinine [Mass/Vol] 0.95 mg/dL Normal 0.58-0.96 [facility] Comment on above: Order Comment: Speci men Type: BLOOD SPECIMEN Ordering Facility: [facility] Address: [address] [place] [address] Performed By: #### 2 4323-8 #### [facility] CLIA [id number] [address] [place] [address]208 Creatinine and Glomerular filtration rate.predicted panel (S/P/Bld) 67 mL/min/1.73m??? Normal >=60 [facility] Comment on above: Order Comment: Igori men Type: BLOOD SPECIMEN Ordering Facility: [facility] Address: [address] [place] [address] Result Comment: Judy mated Glomerular Filtration Rate [...] GFR. Performed By: #### 2 4323-8 #### [facility] CLIA [id number] [address] [place] [address]805 Glucose [Mass/Vol] 97 mg/dL Normal 74-99 [facility] Comment on above: Order Comment: Igori men Type: BLOOD SPECIMEN Ordering Facility: [facility] Address: [address] [id number] Result Comment: The [place] Diabetes Association (ADA) provides guidance for cutoff [...] Standards of Medical Care in Diabetes 2016, [place] Diabetes Association. Diabetes Care. 2016.39(Suppl 1). Performed By: #### 2 4323-8 #### [facility] CLIA [id number] [address] [place] [address] Potassium [Moles/Vol] 4.2 mmol/L Normal 3.7-5.1 [facility] Comment on above: Order Comment: Speci men Type: BLOOD SPECIMEN Ordering Facility: [facility] Address: [address] [place] [address] Performed By: #### 2 4323-8 #### [facility] CLIA [id number] [address] [place] [address]403 Protein [Mass/Vol] 6.6 g/dL Normal 6.3-8.0 [facility] Comment on above: Order Comment: Speci men Type: BLOOD SPECIMEN Ordering Facility: [facility] Address: [address] [place], [place] [address] Performed By: #### 2 4323-8 #### [facility] CLIA [id number] [address] [place] [address] 47715 Sodium [Moles/Vol] 140 mmol/L Normal 136-144 [facility] Comment on above: Order Comment: Speci men Type: BLOOD SPECIMEN Ordering Facility: [facility] Address: [address] [place] [address] Performed By: #### 2 4323-8 #### [facility] CLIA [id number] [address] [place] [address] 31613 Urea nitrogen [Mass/Vol] 20 mg/dL Normal 7-21 [facility] Comment on above: Order Comment: Speci men Type: BLOOD SPECIMEN Ordering Facility: [facility] Address: [address] [place] [address] Performed By: #### 2 4323-8 #### [facility] CLIA [id number] [address] [place] [address] Ambulatory Visit Summaryon 1 Ambulatory Visit Summary [...] DIPTI TOVAR PA-C Where: [facility] [address] [id number]- Thursday 8:45 AM EDT With: Roland VELEZ MD Where: [facility] [address] [address]- You Need to Schedule the Following Appointments Follow Up with Roland VELEZ MD, URL When: Where: [facility] [address] [place] [phone]- [phone] Medications What How Much When Instructions Unchanged [...] may eat and drink normally. ? Take schy-btu-dllhsuy and prescription medicines only as told by your health care provider. ? Let your health care provider know about any medicines that you are taking, including rptb-ulv-ezwrssi medicines, vitamins, herbs, and supplements. ? Choose [...] Urology [address], [place] [address]- [phone] Additional Instructions: 4 mos w/ KUB and metabolic workup Patient Education 24-Hour Urine Collection Kidney Stones, Gtsr-jh-Psux I, Nella Carrillo, personally scribed for Dr. [...] - De (more content not included)... Normal [facility] Comment on above: Result Comment: Elec tronically Signed By: Roland VELEZ MD\.br\Date and Time Signed: 06/07/24 16:02 EDT\.br\Electronically Co-Signed By: Nella Carrillo\.br\Date and Time Co-Signed: 06/07/24 16:00 EDT MAMM SCREENING BILATERAL W C opthalmic tech 05-30-2024 MAMM SCREENING BILATERAL W CAD MAMM SCREENING BILATERAL W CAD ALBERT ROBERTS 1960 [id number] EXAM: MAMM SCREENING BILATERAL W CAD, 05/28/2024 9:30 AM CLINICAL INDICATIONS: Screening, Malignant neoplasm of upper-outer quadrant of right breast in female, estrogen receptor positive ([facility]); Screening mammogram for breast cancer COMPARISON: 05/04/2023 [...] AM 2 c MAMM 1 YR Normal [facility] DEXA SCAN CENTRAL SKELETALon 05-29-2024 DEXA [...] Arellano MD on 05/29/2024 3:48 PM Normal [facility] CNPNon 05-20-2024 CNPN Telephone (HEMASA) ALBERT ROBERTS ([id number]) 1960 F Date Time Provider Department 05/20/24 AUDRA ANDREWS During your visit today, we recorded the following information about you: Audra Andrews RN 05/20/2024 10:30 AM Signed [facility] called for DX code to be added to screening mammogram order. Z12.31 added and faxed to requested # [phone]. Pt is scheduled next week. Audra Andrews RN Allergies As of Date: 05/20/2024 Noted Allergy Reaction KEFLEX (CEPHALEXIN) 01/14/2017 16 - Unknown Date Reviewed: 07/17/2023 Reviewed by: Ryan Daniels APRN.MANAGER OF CONSTRUCTION - Fully Assessed Reason for Visit: DX [...] Status:Closed by AUDRA ANDREWS on 05/20/[address] [facility] Basophils Auto (Bld) [#/Vol] on 04-13-2024 Basophils (Bld) [#/Vol] 0.0 10 3/uL 0.0-0.1 [facility] Basophils/100 WBC Auto (Bld) on 04-13-2024 Basophils/100 WBC (Bld) 0.7 % 0.2-2.0 [facility] Eosinophils/100 WBC Auto (Bl d)on 04-13-2024 Eosinophils/100 WBC (Bld) 1.2 % 0.9-7.0 [facility] Erythrocyte distribution wid th Auto (RBC) [Ratio]on 04-13-2024 Erythrocyte distribution width (RBC) [Ratio] 12.1 % 11.0-15.0 [facility] Hematocrit Auto (Bld) [Volum e fraction]on 04-13-2024 Hematocrit (Bld) [Volume fraction] 41.0 % 36.0-48.0 [facility] Hemoglobin [Mass/volume] in Bloodon 04-13-2024 Hemoglobin (Bld) [Mass/Vol] 13.6 g/dL 12.0-16.0 [facility] Chip 04-13-2024 L Specimen: [id number] Received: 04/18/24 Status: GEMA Oneill Num: [id number] Spec Type: Impression Subm Dr: Juma Buckner DO Tissues: PATHPER Procedures: PATHREVIEW Age/ Patient Sex Location Account Attending Physician Albert Roberts 64/F LABELL [id number] Juma Buckner DO SPEC NUM: [id number] RECD: 04/18/24 STATUS: DAVIDLeonela ONEILL NUM: [id number] GILA: 04/13/[address]: Juma Buckner DO ENTERED: 04/18/[address] [facility] [address]: SPEC TYPE: Impression DEPT: MALENA Alvarez ENTERED BY: [id number] RECV BY: [id number] ORDERED: PATHREVIEW ORDERED: PATHREVIEW Pathologist Review Abnormal [...] antineoplastics. Continuous clinical correlations are suggested CPT: 25003 ---- ---- Specimen: [id number] Received: 04/18/24 Status: GEMA Oneill Num: [id number] Spec Type: Impression Subm Dr: Juma Buckner DO Tissues: PATHPER Procedures: PATHREVIEW ---- Patient: Albert Roberts [id number] (Continued) ---- Signed (signature on file) Yue Braga MD 04/18/242006 Normal [facility] Laboratory - Hematology and Cell countson 04-13-2024 ESR (Bld) [Velocity] 6 mm/h <=30 [facility] Immature granulocytes/100 WBC (Bld) 0.2 % 0.0-0.5 [facility] Leukocytes [#/volume] correc noe for nucleated erythrocytes in Blood by Automated counon 04-13-2024 WBC corrected for nucl RBC Auto (Bld) [#/Vol] 5.7 10 3/uL 4.0-11.0 [facility] Lymphocytes Auto (Bld) [#/Vo l]on 04-13-2024 Lymphocytes (Bld) [#/Vol] 1.1 10 3/uL Low 1.2-3.8 [facility] Lymphocytes/100 WBC Auto (Bl d)on 04-13-2024 Lymphocytes/100 WBC (Bld) 18.8 % Low 20.5-60.0 [facility] MCH Auto (RBC) [Entitic mass ]on 04-13-2024 MCH (RBC) [Entitic mass] 31.3 pg 26.7-34.0 [facility] MCHC Auto (RBC) [Mass/Vol]on 04-13-2024 MCHC (RBC) [Mass/Vol] 33.2 g/dL 29.9-35.2 [facility] MCV Auto (RBC) [Entitic vol] on 04-13-2024 MCV (RBC) [Entitic vol] 94.5 fL 81.0-99.0 [facility] Monocytes Auto (Bld) [#/Vol] on 04-13-2024 Monocytes (Bld) [#/Vol] 0.3 10 3/uL 0.3-0.8 [facility] Monocytes/100 WBC Auto (Bld) on 04-13-2024 Monocytes/100 WBC (Bld) 5.4 % 1.7-12.0 [facility] Neutrophils Auto (Bld) [#/Vo l]on 04-13-2024 Neutrophils (Bld) [#/Vol] 4.2 10 3/uL 1.4-6.5 [facility] Neutrophils/100 WBC Auto (Bl d)on 04-13-2024 Neutrophils/100 WBC (Bld) 73.7 % 43.0-75.0 [facility] No Panel Informationon 04-13 C-Reactive Protein, Quantitative <0.50 mg/dL <=0.50 [facility] Eosinophils # (Auto) 0.1 10 3/uL 0.0-0.7 [facility] Immature Granulocyte # (Auto) 0.01 10 3/uL 0.00-0.03 [facility] Platelet mean volume Auto (B ld) [Entitic vol]on 04-13-2024 Platelet mean volume (Bld) [Entitic vol] 11.2 fL 9.5-13.5 [facility] Platelets Auto (Bld) [#/Vol] on 04-13-2024 Platelets (Bld) [#/Vol] 199 10 3/uL 150-450 [facility] RBC Auto (Bld) [#/Vol]on RBC (Bld) [#/Vol] 4.34 10 6/uL 4.20-5.40 [facility] Serum or plasma free cefurox haylee measurement (mass/volume)on 04-13-2024 Cefuroxime free [Mass/Vol] Negative Negative [facility] Comment on above: Performed at: [facility] [employer] [place] [id number] Director: Dima Sosa PhD, Phone: [phone] Activated partial thrombopla stin time (aPTT) in platelet poor plasma by coagulation aon 04-04-2024 aPTT Coag (PPP) [Time] 29.7 s 22.3-36.2 [facility] Basophils Auto (Bld) [#/Vol] on 04-04-2024 Basophils (Bld) [#/Vol] 0.0 10 3/uL 0.0-0.1 [facility] Basophils/100 WBC Auto (Bld) on 04-04-2024 Basophils/100 WBC (Bld) 1.5 % 0.2-2.0 [facility] Eosinophils/100 WBC Auto (Bl d)on 04-04-2024 Eosinophils/100 WBC (Bld) 3.0 % 0.9-7.0 [facility] Erythrocyte distribution wid th Auto (RBC) [Ratio]on 04-04-2024 Erythrocyte distribution width (RBC) [Ratio] 12.0 % 11.0-15.0 [facility] Estimated glomerular filtrat ion rate (GFR) non- Americanon 04-04-2024 GFR/1.73 sq M.predicted among non-blacks MDRD (S/P/Bld) [Vol rate/Area] 58 mL/min/{1.73_m2} Low >=60 [facility] Hematocrit Auto (Bld) [Volum e fraction]on 04-04-2024 Hematocrit (Bld) [Volume fraction] 42.8 % 36.0-48.0 [facility] Hemoglobin [Mass/volume] in Bloodon 04-04-2024 Hemoglobin (Bld) [Mass/Vol] 14.2 g/dL 12.0-16.0 [facility] INR in Platelet poor plasma by Coagulation assayon 04-04-2024 INR Coag (PPP) [Relative time] 1.13 {INR} [facility] Comment on above: DESIRED INR:2.0-3.0 CONDITIONS NOT LISTED BELOW2.5-3.5 FOR PROSTHETIC HEART VALVE REPLACEMENT2.5-3.5 RECURRENT THROMBOSIS Laboratory - Chemistry and C hemistry - challengeon 04-04-2024 Calcium [Mass/Vol] 8.9 mg/dL 8.5-10.1 [facility] Chloride [Moles/Vol] 104 mmol/L 98-107 [facility] CO2 [Moles/Vol] 27.6 mmol/L 21.0-32.0 [facility] Creatinine [Mass/Vol] 0.97 mg/dL 0.55-1.02 [facility] GFR/1.73 sq M.predicted MDRD (S/P/Bld) [Vol rate/Area] mL/min/{1.73_m2} >=60 [facility] Glucose [Mass/Vol] 92 mg/dL 74-106 [facility] Potassium [Moles/Vol] 4.0 mmol/L 3.5-5.1 [facility] Sodium [Moles/Vol] 140 mmol/L 136-145 [facility] Urea nitrogen [Mass/Vol] 25.0 mg/dL High 7.0-18.0 [facility] Urea nitrogen/Creatinine [Mass ratio] 25.8 mg/mg [facility] Laboratory - Hematology and Cell countson 04-04-2024 Immature granulocytes/100 WBC (Bld) 0.4 % 0.0-0.5 [facility] Leukocytes [#/volume] correc noe for nucleated erythrocytes in Blood by Automated counon 04-04-2024 WBC corrected for nucl RBC Auto (Bld) [#/Vol] 2.7 10 3/uL Low 4.0-11.0 [facility] Lymphocytes Auto (Bld) [#/Vo l]on 04-04-2024 Lymphocytes (Bld) [#/Vol] 0.9 10 3/uL Low 1.2-3.8 [facility] Lymphocytes/100 WBC Auto (Bl d)on 04-04-2024 Lymphocytes/100 WBC (Bld) 33.3 % 20.5-60.0 [facility] MCH Auto (RBC) [Entitic mass ]on 04-04-2024 MCH (RBC) [Entitic mass] 31.0 pg 26.7-34.0 [facility] MCHC Auto (RBC) [Mass/Vol]on 04-04-2024 MCHC (RBC) [Mass/Vol] 33.2 g/dL 29.9-35.2 [facility] MCV Auto (RBC) [Entitic vol] on 04-04-2024 MCV (RBC) [Entitic vol] 93.4 fL 81.0-99.0 [facility] Monocytes Auto (Bld) [#/Vol] on 04-04-2024 Monocytes (Bld) [#/Vol] 0.4 10 3/uL 0.3-0.8 [facility] Monocytes/100 WBC Auto (Bld) on 04-04-2024 Monocytes/100 WBC (Bld) 15.0 % High 1.7-12.0 [facility] Neutrophils Auto (Bld) [#/Vo l]on 04-04-2024 Neutrophils (Bld) [#/Vol] 1.3 10 3/uL Low 1.4-6.5 [facility] Neutrophils/100 WBC Auto (Bl d)on 04-04-2024 Neutrophils/100 WBC (Bld) 46.8 % 43.0-75.0 [facility] No Panel Informationon 04-04 Eosinophils # (Auto) 0.1 10 3/uL 0.0-0.7 [facility] Immature Granulocyte # (Auto) 0.01 10 3/uL 0.00-0.03 [facility] Platelet mean volume Auto (B ld) [Entitic vol]on 04-04-2024 Platelet mean volume (Bld) [Entitic vol] 10.9 fL 9.5-13.5 [facility] Platelets Auto (Bld) [#/Vol] on 04-04-2024 Platelets (Bld) [#/Vol] 198 10 3/uL 150-450 [facility] Prothrombin time (PT)on 03-08 PT Coag (PPP) [Time] 11.8 s High 9.0-11.6 [facility] RBC Auto (Bld) [#/Vol]on RBC (Bld) [#/Vol] 4.58 10 6/uL 4.20-5.40 [facility] Serum or plasma anion gap de terminationon 04-04-2024 Anion gap [Moles/Vol] 12.4 mmol/L [facility] Ambulatory Visit Summaryon 0 02-29-2024 Ambulatory Visit Summary ALBERT ROBERTS :1960 Visit Date:02/29/2024 Ambulatory Visit Instructions Your Diagnosis Kidney stones Asymptomatic microscopic hematuria Tests Performed XR Abdomen 1 View -- Results Pending -- Please visit your patient portal for your results or contact your primary care physician. Your Care Team Attending Physician - PATRICIA STRICKLAND, Roland Barksdale Primary Care Physician - JMUA BUCKNER DO This Is Your Medications List [...] [facility] [address], [place] [address]- [phone] Medications What How Much When Instructions New potassium citrate (potassium CITRATE 10 mEq ER Tab) 2 Tablets By Mouth 2 times a day Duration: 30 Days Refills: 11 Pickup at [facility] #[id number] Unchanged ergocalciferol (Vitamin D) By Mouth Every week Contact prescribing physician if questions or concerns Unchanged Non-Formulary Medication (Calcium) By Mouth Every day Contact prescribing physician if questions or concerns Pharmacy Information [facility] #[id number]: [address], [place] [id number] [phone] What How Much When Comments Stop Taking [...] ? 8 oz (237 mL) of milk, ctyhfjv-qukcncqbadka-d airy milk, and calcium-fortifiedfruit juice. Calcium-fortified means [...] ? Eat (more content not included)... Normal [facility] Patient Educationon 02-29-20 Patient Education Nephrology [...] ? 8 oz (237 mL) of milk, iivztdw-jenkqnpgeiib-v airy milk, and calcium-fortifiedfruit juice. Calcium-fortified means [...] Spinach (cooked), rhubarb, beets, sweet potatoes, and Vietnamese chard. ? Peanuts. ? Potato chips, chinese fries, and baked potatoes with skin on. ? Nuts and nut products. ? Chocolate. ? If you regularly take a diuretic medicine, make sure to eat at least 1 or 2 servings of fruits or vegetables that are high in potassium each day. These include: ? Avocado. ? Banana. ? Dolores, prune, carrot, or tomato juice. ? Baked [...] fish oil, or vitamin B6. ? Take ifov-spu-bwwqahu and prescription medicines only as told by your health care provider. These include supplements. What foods sh (more content not included)... Normal [facility] Urology Office/Clinic Noteon 02-29-2024 Urology Office/Clinic Note Chief Complaint kidney stones and asymptomatic microhematuria HPI Staff 1 yr with KUB @ [facility] 02/24/24 due to kidney stones. Previous DX: asymptomatic microscopic hematuria, dysuria, gross hematuria, hydronephrosis with urinary obstruction due to ureteral calculus, kidney stones, lower abdominal pain, microscopic hematuria, ureteral stone. S/P ESWL 04/11/21. Started Effer-K 25mEq BID at prior OV. Electrolyte panel was not done. Could not find any pertaining labs from PCP ([facility], [facility], or [facility] either. Dysuria: no Incomplete bladder emptying: no [...] only been taking this once per day. Mayer bloated when she took bid. Advised pt [...] [facility] [address] , [place] [address]- [phone] Additional Instructions: 1 yr w/ KUB Patient [...] Use:. Household (more content not included)... Normal [facility] Comment on above: Result Comment: Elec tronically Signed By: Roland VELEZ MD\.br\Date and Time Signed: 02/29/24 12:00 EDT\.br\Electronically Co-Signed By: Nella Carrillobr\Date and Time Co-Signed: 02/29/24 11:56 EDT RAD - MISCon 02-25-2024 RAD - MISC [id number] 0TIFF Normal [facility] OXALATE 24HR URINEon 022 Oxalates, Urine 14 mg/L Normal Undefined [facility] Comment on above: Performed By: #### U NICHOLE 24 #### [facility] [address] [place] [address] Dr. Lizzette Braga Oxalates, Urine 24hr 28 mg/24 hr Normal 4- [facility] Comment on above: Performed By: #### U NICHOLE 24 #### [facility] [address] [place] [address] [address] Lizzette Braga CITRATE URINE 24HRon 022 Citric Acid, U, 24hr 265 mg/24 hr Critically low 320-1240 [facility] Comment on above: Result Comment: This test was developed and its performance characteristics determined by [facility]. It has not been cleared or approved by the Food and Drug Administration. Performed By: #### U NICHOLE 24 #### [facility] [address] [place] [address] [address] Lizzette Braga Citric Acid, Urine 131 mg/L Normal Undefined [facility] Comment on above: Performed By: #### U NICHOLE 24 #### [facility] [address] [place] [address] Dr. Lizzette Braga MAGNESIUM 24HR URINEon 04-03 Magnesium 24hr Urine 68.9 mg/24 hr Normal 12.0-293.0 [facility] Comment on above: Performed By: #### U NICHOLE 24 #### [facility] [address] [place] [address] Dr. Lizzette Braga Magnesium UR 3.4 mg/dL Normal Not Estab. [facility] Comment on above: Performed By: #### U NICHOLE 24 #### [facility] [address] [place] [address] Dr. Lizzette Braga PHOSPHORUS 24HR URINEon 03-08 Phosphorus, Urine 21.6 mg/dL Normal Not Estab. [facility] Comment on above: Performed By: #### U NICHOLE 24 #### [facility] [address] [place] [address] Dr. Lizzette Braga Phosphorus, Urine 24hr 437 mg/24 hr Normal 261-1078 [facility] Comment on above: Performed By: #### U NICHOLE 24 #### [facility] [address] [place] [address] Dr. Lizzette Braga URIC ACID 24 HR URINEon 03-08 Uric Acid, Urine 19.0 mg/dL Normal Not Estab. The [facility] Comment on above: Performed By: #### U NICHOLE 24 #### [facility] [address] [place] [address] Dr. Lizzette Braga Uric Acid, Urine 24hr 384.8 mg/24 hr Normal 142.3-713. 2 [facility] Comment on above: Performed By: #### U NICHOLE 24 #### [facility] [address] [place] [address] Dr. Lizzette Braga CALCIUM 24 HR URINEon 2021 CALC, 24 HR UR 141.8 mg/24 hr Normal 100.0-300.0 [facility] Comment on above: Performed By: #### U NICHOLE 24 #### [facility] [address] [place] [address] Dr. Lizzette Braga UR CALCIUM 7.0 mg/dL Normal 5.1-21.0 [facility] Comment on above: Performed By: #### U NICHOLE 24 #### [facility] [address] [place] [address] Dr. Lizzette Braga CREA 24 HR URINEon 2 CREA, 24 HR UR 896.06 mg/24 hr Normal 800.00-1,8 00.0 0 [facility] Comment on above: Performed By: #### U NICHOLE 24 #### [facility] [address] [place] [address] Dr. Lizzette Barga URINE CREAT 44.25 mg/dL Normal 20.00-300.00 [facility] Comment on above: Performed By: #### U NICHOLE 24 #### [facility] [address] [place] [address] Dr. Lizzette Braga PTH INTACTon 04-01-2022 PTH, Intact 36 pg/mL Normal 15-65 [facility] Comment on above: Performed By: #### U NICHOLE 24 #### [facility] [address] [place] [address] Dr. Lizzette Braga SODIUM 24 HR URINEon 022 NA, 24 HR UR 99 mmol/24 hr Normal 40-[address] [facility] Comment on above: Performed By: #### U NICHOLE 24 #### [facility] [address] [place] [address] Dr. Lizzette Braga Sodium (U) [Moles/Vol] 49 mmol/L Normal 30-90 [facility] Comment on above: Performed By: #### U NICHOLE 24 #### [facility] [address] [place] [address] Dr. Lizzette Braga UR TOT VOL 2025 ml/24 HR Normal [facility] Comment on above: Performed By: #### U NICHOLE 24 #### [facility] [address] [place] [address] Dr. Lizzette Braga BUNon 03-31-2022 Urea nitrogen [Mass/Vol] 18.0 mg/dL Normal 7.0-18.0 [facility] Comment on above: Performed By: #### C O2, CA, URIC, NA, K, CREA, BUN, CL #### [facility] [address] [place] [address] Dr. Lizzette Braga CALCIUMon 03-31-2022 Calcium [Mass/Vol] 9.0 mg/dL Normal 8.5-10.1 [facility] Comment on above: Performed By: #### U NICHOLE 24 #### [facility] [address] [place] [address] Dr. Lizzette Braga CHLORIDEon 03-31-2022 Chloride [Moles/Vol] 105 mmol/L Normal 98-107 [facility] Comment on above: Performed By: #### C O2, CA, URIC, NA, K, CREA, BUN, CL #### [facility] [address] [place] [address] Dr. Lizzette Braga CO2on 03-31-2022 CO2 [Moles/Vol] 27.7 mmol/L Normal 21.0-32.0 [facility] Comment on above: Performed By: #### C O2, CA, URIC, NA, K, CREA, BUN, CL #### [facility] [address] [place] [address] Dr. Lizzette Braga CREATININEon 03-31-2022 Creatinine [Mass/Vol] 0.96 mg/dL Normal 0.55-1.02 [facility] Comment on above: Performed By: #### C O2, CA, URIC, NA, K, CREA, BUN, CL #### [facility] [address] [address] [address] Lizzette Braga EGFR-AF SRI LANKAN >60 Normal >=60 [facility] Comment on above: Performed By: #### C O2, CA, URIC, NA, K, CREA, BUN, CL #### [facility] [address] [address] [address] Lizzette Braga EGFR-NON AF SRI LANKAN 59 mL/min/1.73m2 Critically low >=60 [facility] Comment on above: Performed By: #### C O2, CA, URIC, NA, K, CREA, BUN, CL #### [facility] [address] [place] [address] Dr. Lizzette Braga NAon 03-31-2022 Sodium [Moles/Vol] 141 mmol/L Normal 136-145 [facility] Comment on above: Performed By: #### C O2, CA, URIC, NA, K, CREA, BUN, CL #### [facility] [address] [place] [address] Dr. Lizzette Braga POTASSIUMon 03-31-2022 Potassium [Moles/Vol] 4.1 mmol/L Normal 3.5-5.1 [facility] Comment on above: Performed By: #### C O2, CA, URIC, NA, K, CREA, BUN, CL #### [facility] [address] [address] [address] Lizzette Braga URIC ACID SERUMon 03-31-2022 Urate [Mass/Vol] 3.0 mg/dL Normal 2.6-6.0 [facility] Comment on above: Performed By: #### C O2, CA, URIC, NA, K, CREA, BUN, CL #### [facility] [address] [place] [address] Dr. Lizzette Braga XR KUB 1 VIEWon [...] ISRRAEL COOPER Date: 2022-02-28 06:17 Normal [facility] CALCULI, URINARYon 1 2,8 Dihydroxyadenine Normal [facility] Comment on above: Performed By: #### U NICHOLE 24 #### [facility] [address] [address] [address] Lizzette Braga Ammonium Acid Urate Normal [facility] Comment on above: Performed By: #### U NICHOLE 24 #### [facility] [address] [place] [address] Dr. Lizzette Braga Bilirubin Ql (U) Normal [facility] Comment on above: Performed By: #### U NICHOLE 24 #### [facility] [address] [address] [address] Lizzette Braga Ca Oxalate Dihydrate 20 % Normal [facility] Comment on above: Performed By: #### U NICHOLE 24 #### [facility] [address] [address] [address] Lizzette Braga CaHPO4 (Brushite) Normal [facility] Comment on above: Performed By: #### U NICHOLE 24 #### [facility] [address] [address] [address] Lizzette Braga Calcium Bilirubinate Normal [facility] Comment on above: Performed By: #### U NICHOLE 24 #### [facility] [address] [address] [address] Lizzette Braga Calcium Carbonate Normal [facility] Comment on above: Performed By: #### U NICHOLE 24 #### [facility] [address] [address] [address] Lizzette Braga Calcium Oxalate Monohydrate 80 % [facility] Comment on above: Performed By: #### U NICHOLE 24 #### [facility] [address] [place] [address] Dr. Lizzette Braga Calcium Palmitate Normal [facility] Comment on above: Performed By: #### U NICHOLE 24 #### [facility] [address] [address] [address] Lizzette Braga Calcium Phosphate Normal [facility] Comment on above: Performed By: #### U NICHOLE 24 #### [facility] [address] [address] [address] Lizzette Braga Calcium Stearate Normal [facility] Comment on above: Performed By: #### U NICHOLE 24 #### [facility] [address] [address] [address] Lizzette Braga Carbonate Apatite Normal [facility] Comment on above: Performed By: #### U NICHOLE 24 #### [facility] [address] [address] [address] Lizzette Braga Cellular Material Normal [facility] Comment on above: Performed By: #### U NICHOLE 24 #### [facility] [address] [address] [address] Lizzette Braga Cholesterol [facility] Comment on above: Performed By: #### U NICHOLE 24 #### [facility] [address] [address] [address] Lizzette Braga Color (U) Brown Normal [facility] Comment on above: Performed By: #### U NICHOLE 24 #### [facility] [address] [address] [address] Lizzette Braga Comment [facility] Comment on above: Performed By: #### U NICHOLE 24 #### [facility] [address] [address] [address] Lizzette Braga Comment: Comment Normal [facility] Comment on above: Result Comment: Lyle carias questions regarding Calculi Analysis contact [facility] at: [phone]. Performed By: #### U NICHOLE 24 #### [facility] [address] [place] [address] Dr. Lizzette Braga Composition Comment [facility] Comment on above: Result Comment: Perc entage (Represents the % composition) Performed By: #### U NICHOLE 24 #### [facility] [address] [address] [address] Lizzette Braga Cystine Normal [facility] Comment on above: Performed By: #### U NICHOLE 24 #### [facility] [address] [place] [address] Dr. Lizzette Braga Disclaimer: Comment Normal [facility] Comment on above: Result Comment: This test was developed and its performance characteristics determined by [facility]. It has not been cleared or approved by the Food and Drug Administration. Performed By: #### U NICHOLE 24 #### [facility] [address] [address] [address] Lizzette Braga Dried Blood [facility] Comment on above: Performed By: #### U NICHOLE 24 #### [facility] [address] [place] [address] Dr. Lizzette Braga Drug or Metabolite [facility] Comment on above: Performed By: #### U NICHOLE 24 #### [facility] [address] [place] [address] Dr. Lizzette Braga Hydroxyapatite [facility] Comment on above: Performed By: #### U NICHOLE 24 #### [facility] [address] [place] [address] Dr. Lizzette Braga Mg NH4 PO4 (Struvite) [facility] Comment on above: Performed By: #### U NICHOLE 24 #### [facility] [address] [place] [address] Dr. Lizzette Braga MgHPO4 (Newberyite) Normal [facility] Comment on above: Performed By: #### U NICHOLE 24 #### [facility] [address] [place] [address] Dr. Lizzette Braga Other component(s) Normal [facility] Comment on above: Performed By: #### U NICHOLE 24 #### [facility] [address] [place] [address] Dr. Lizzette Braga PDF . Normal [facility] Comment on above: Performed By: #### U NICHOLE 24 #### [facility] [address] [place] [address] Dr. Lizzette Braga Photo Comment Normal [facility] Comment on above: Result Comment: Phot ograph will follow under a separate cover Performed By: #### U NICHOLE 24 #### [facility] [address] [address] [address] Lizzette Braga Please note: Comment Normal [facility] Comment on above: Result Comment: Calc romelia report will follow via computer, mail or assembler unit delivery. Performed By: #### U NICHOLE 24 #### [facility] [address] [address] [address] Lizzette Braga Size 3x3 Normal [facility] Comment on above: Result Comment: Mult iple pieces received. Dimensions of the largest piece reported. Performed By: #### U NICHOLE 24 #### [facility] [address] [address] [address] Lizzette Braga Sodium Acid Urate [facility] Comment on above: Performed By: #### U NICHOLE 24 #### [facility] [address] [place] [address] Dr. Lizzette Braga Source Comment Normal [facility] Comment on above: Result Comment: Not provided Performed By: #### U NICHOLE 24 #### [facility] [address] [address] [address] Lizzette Braga Triamterene [facility] Comment on above: Performed By: #### U NICHOLE 24 #### [facility] [address] [address] [address] Lizzette Braga Uric Acid [facility] Comment on above: Performed By: #### U NICHOLE 24 #### [facility] [address] [address] [address] Lizzette Braga Uric Acid Dihydrate Normal [facility] Comment on above: Performed By: #### U NICHOLE 24 #### [facility] [address] [address] [address] Lizzette Braga Weight 84 mg [facility] Comment on above: Performed By: #### U NICHOLE 24 #### [facility] [address] [address] [address] Lizzette Braga Xanthine [facility] Comment on above: Performed By: #### U NICHOLE 24 #### [facility] [id number] Lizzette Braga XR KUB 1 VIEWon [...] ISRRAEL COOPER Date: 2021 07:38 Normal [facility] COVID-19 Positive/Negativeon 02-25-2021 SARS-CoV-2 (COVID-19) N gene TREVOR+probe Ql (Resp) Negative Negative [facility] Comment on above: Testing for SARS-CoV -2 by RT-PCRThis test was developed and its performance characteristics determined by [employer] and validated at the [facility]. This test has not been [...] 02-14-2021 Basophils (Bld) [#/Vol] 0.0 10*3/uL 0.0-0.2 [facility] Basophils/100 WBC Auto (Bld) on 02-14-2021 Basophils/100 WBC (Bld) 0.5 % [facility] Blood hemoglobin measurement (mass/volume)on 02-14-2021 Hemoglobin (Bld) [Mass/Vol] 14.3 g/dL 11.8-15.4 [facility] Blood leukocytes automated c ount (number/volume)on 02-14-2021 WBC (Bld) [#/Vol] 5.0 10*3/uL 4.5-11.0 [facility] Creatinine and Glomerular fi ltration rate.predicted panel (S/P/Bld)on 02-14-2021 Creatinine [Mass/Vol] 0.89 mg/dL 0.44-1.03 [facility] Eosinophils Auto (Bld) [#/Vo l]on 02-14-2021 Eosinophils (Bld) [#/Vol] 0.1 10*3/uL 0.0-0.45 [facility] Eosinophils/100 WBC Auto (Bl d)on 02-14-2021 Eosinophils/100 WBC (Bld) 1.3 % [facility] Erythrocyte distribution wid th Auto (RBC) [Ratio]on 02-14-2021 Erythrocyte distribution width (RBC) [Ratio] 12.8 % 11.9-15.3 [facility] Estimated glomerular filtrat ion rate (GFR) non- Americanon 02-14-2021 GFR/1.73 sq M.predicted among non-blacks MDRD (S/P/Bld) [Vol rate/Area] > 60 mL/Min [facility] Hematocrit Auto (Bld) [Volum e fraction]on 02-14-2021 Hematocrit (Bld) [Volume fraction] 42.9 % 34.0-46.4 [facility] Laboratory - Hematology and Cell countson 02-14-2021 Nucleated RBC/100 WBC (Bld) [Ratio] 0.3 % 0-0.5 [facility] Lymphocytes Auto (Bld) [#/Vo l]on 02-14-2021 Lymphocytes (Bld) [#/Vol] 1.0 10*3/uL 1.00-4.8 [facility] Lymphocytes/100 WBC Auto (Bl d)on 02-14-2021 Lymphocytes/100 WBC (Bld) 19.9 % [facility] MCH Auto (RBC) [Entitic mass ]on 02-14-2021 MCH (RBC) [Entitic mass] 31.1 pg 24.7-34.3 [facility] MCHC Auto (RBC) [Mass/Vol]on 02-14-2021 MCHC (RBC) [Mass/Vol] 33.5 g/dL 32.0-35.0 [facility] MCV Auto (RBC) [Entitic vol] on 02-14-2021 MCV (RBC) [Entitic vol] 93.0 fL 80-100 [facility] Monocytes Auto (Bld) [#/Vol] on 02-14-2021 Monocytes (Bld) [#/Vol] 0.4 10*3/uL 0.0-0.8 [facility] Monocytes/100 WBC Auto (Bld) on 02-14-2021 Monocytes/100 WBC (Bld) 7.1 % [facility] Neutrophils Auto (Bld) [#/Vo l]on 02-14-2021 Neutrophils (Bld) [#/Vol] 3.6 10*3/uL 1.8-7.7 [facility] Neutrophils/100 WBC Auto (Bl d)on 02-14-2021 Neutrophils/100 WBC (Bld) 71.2 % [facility] No Panel Informationon 02-14 Estimated GFR () > 60 mL/Min [facility] Comment on above: GFR estimated refere nce range: According to KDOQI guidelines, <60 ml/min/1.73m2 is sufficient to diagnose a patient with chronic kidney disease. Pharmacy Creatinine Clearance (Chem N/A [facility] Platelet mean volume Auto (B ld) [Entitic vol]on 02-14-2021 Platelet mean volume (Bld) [Entitic vol] 10.2 fL 6.3-10.7 [facility] Platelets Auto (Bld) [#/Vol] on 02-14-2021 Platelets (Bld) [#/Vol] 198 10*3/uL 150-450 [facility] RBC Auto (Bld) [#/Vol]on RBC (Bld) [#/Vol] 4.61 10*6/uL 3.60-5.00 [facility] Serum or plasma calcium macario urement (mass/volume)on 02-14-2021 Calcium [Mass/Vol] 9.5 mg/dL 8.2-10.2 [facility] Serum or plasma chloride tylor surement (moles/volume)on 02-14-2021 Chloride [Moles/Vol] 100 mmol/L 95-114 [facility] Serum or plasma glucose macario urement (mass/volume)on 02-14-2021 Glucose [Mass/Vol] 93 mg/dL 70-100 [facility] Comment on above: ADA recommended refe rence rangeRandom Glucose Reference Range is dependent on time and content of last meal. Glucose of more than 200 mg/dL in a nonstressed, ambulatory subject supports the diagnosis of Diabetes Mellitus. Serum or plasma potassium me asurement (moles/volume)on 02-14-2021 Potassium [Moles/Vol] 4.2 mmol/L 3.5-5.1 [facility] Serum or plasma sodium measu rement (moles/volume)on 02-14-2021 Sodium [Moles/Vol] 139 mmol/L 136-146 [facility] Serum or plasma total carbon dioxide measurement (moles/volume)on 02-14-2021 CO2 [Moles/Vol] 24.7 mmol/L 22.0-30.0 [facility] Serum or plasma urea nitroge n measurement (mass/volume)on 02-14-2021 Urea nitrogen [Mass/Vol] 20 mg/dL 9- [facility] Vital Signs Date Time Vital Sign Value Performing Clinician Facility 07-14-2024 15:26-0500 Body height 165.1 cm Liborio Sarabia MD Work Phone: [facility] 07-14-2024 15:26-0500 Body mass index (BMI) [Ratio] 21.61 kg/m2 Liborio Sarabia MD Work Phone: [facility] 07-14-2024 15:26-0500 Body temperature 96.8 [degF] Liborio Sarabia MD Work Phone: [facility] 07-14-2024 15:26-0500 Body weight 58.9 kg Liborio Sarabia MD Work Phone: [facility] 07-14-2024 15:26-0500 Diastolic blood pressure 87 mm[Hg] Liborio Sarabia MD Work Phone: [facility] 07-14-2024 15:26-0500 Heart rate 66 /min Liborio Sarabia MD Work Phone: [facility] 07-14-2024 15:26-0500 Respiratory rate 16 /min Liborio Sarabia MD Work Phone: [facility] 07-14-2024 15:26-0500 SaO2% (BldA) [Mass fraction] 100 % Liborio Sarabia MD Work Phone: [facility] 07-14-2024 15:26-0500 Systolic blood pressure 151 mm[Hg] Liborio Sarabia MD Work Phone: [facility] 06-07-2024 15:31-0400 Blood Pressure Location Roland VELEZ [facility] 06-07-2024 15:31-0400 Diastolic blood pressure 84 mm[Hg] Roland VELEZ [facility] 06-07-2024 15:31-0400 Heart rate 96 /min Roland VELEZ [facility] 06-07-2024 15:31-0400 Respiratory rate 16 /min Roland VELEZ [facility] 06-07-2024 15:31-0400 Systolic blood pressure 128 mm[Hg] Roland VELEZ [facility] 02-29-2024 11:18-0400 Blood Pressure Location Roland VELEZ [facility] 02-29-2024 11:18-0400 Body temperature 98.6 [degF] Roland VELEZ [facility] 02-29-2024 11:18-0400 Diastolic blood pressure 84 mm[Hg] Roland VELEZ [facility] 02-29-2024 11:18-0400 Heart rate 69 /min Rolandmari VELEZ [facility] 02-29-2024 11:18-0400 Respiratory rate 16 /min Roland VELEZ [facility] 02-29-2024 11:18-0400 Systolic blood pressure 124 mm[Hg] Roland VELEZ [facility] 07-16-2023 14:59-0500 Body height 165.1 cm Liborio Sarabia MD Work Phone: [facility] 07-16-2023 14:59-0500 Body temperature 97.5 [degF] Liborio Sarabia MD Work Phone: [facility] 07-16-2023 14:59-0500 Body weight 58.15 kg Liborio Sarabia MD Work Phone: [facility] 07-16-2023 14:59-0500 Diastolic blood pressure 70 mm[Hg] Liborio Sarabia MD Work Phone: [facility] 07-16-2023 14:59-0500 Heart rate 80 /min Liborio Sarabia MD Work Phone: [facility] 07-16-2023 14:59-0500 Respiratory rate 16 /min Liborio Sarabia MD Work Phone: [facility] 07-16-2023 14:59-0500 SaO2% (BldA) [Mass fraction] 100 % Liborio Sarabia MD Work Phone: [facility] 07-16-2023 14:59-0500 Systolic blood pressure 159 mm[Hg] Liborio Sarabia MD Work Phone: [facility] 06-19-2023 14:45-0400 Body height 161.29 cm Juma Ball Other [employer] Other 06-19-2023 14:45-0400 Body mass index (BMI) [Ratio] 22.14 kg/m2 Juma Ball Other [employer] Other 06-19-2023 14:45-0400 Body weight 57.61 kg Juma Ball Other [employer] Other 06-19-2023 14:45-0400 Diastolic blood pressure 79 mm[Hg] Juma Ball Other [employer] Other 06-19-2023 14:45-0400 Respiratory rate 12 /min Juma Ball Other [employer] Other 06-19-2023 14:45-0400 Systolic blood pressure 156 mm[Hg] Juma Ball Other [employer] Other 10-28-2022 16:30-0500 Body height 161.29 cm Karina Carlson Other [employer] Other 10-28-2022 16:30-0500 Body mass index (BMI) [Ratio] 21.97 kg/m2 Karina Carlson Other [facility] Other 10-28-2022 16:30-0500 Body temperature 97.3 [degF] Karina Carlson Other [employer] Other 10-28-2022 16:30-0500 Body weight 57.15 kg Karina Carlson Other [employer] Other 10-28-2022 16:30-0500 Respiratory rate 19 /min Karina Carlson Other [employer] Other 10-28-2022 16:30-0500 SaO2% (BldA) [Mass fraction] Karina Carlson Other [employer] Other 08-06-2022 15:15-0500 Blood Pressure Location Roland VELEZ [facility] 08-06-2022 15:15-0500 Diastolic blood pressure 80 mm[Hg] Roland VELEZ [facility] 08-06-2022 15:15-0500 Heart rate 72 /min Roland VELEZ [facility] 08-06-2022 15:15-0500 Systolic blood pressure 141 mm[Hg] Roland VELEZ [facility] 06-16-2022 15:31-0400 Body height 165.1 cm Liborio Sarabia MD Work Phone: [facility] 06-16-2022 15:31-0400 Body temperature 97.39 [degF] Liborio Sarabia MD Work Phone: [facility] 06-16-2022 15:31-0400 Body weight 55.97 kg Liborio Sarabia MD Work Phone: [facility] 06-16-2022 15:31-0400 Diastolic blood pressure 67 mm[Hg] Liborio Sarabia MD Work Phone: [facility] 06-16-2022 15:31-0400 Heart rate 82 /min Liborio Sarabia MD Work Phone: [facility] 06-16-2022 15:31-0400 Respiratory rate 16 /min Liborio Sarabia MD Work Phone: [facility] 06-16-2022 15:31-0400 SaO2% (BldA) [Mass fraction] 99 % Liborio Sarabia MD Work Phone: [facility] 06-16-2022 15:31-0400 Systolic blood pressure 147 mm[Hg] Liborio Sarabia MD Work Phone: [facility] 03-12-2022 10:42-0400 Blood Pressure Location Roland VELEZ [facility] 03-12-2022 10:42-0400 Diastolic blood pressure 89 mm[Hg] Roland VELEZ [facility] 03-12-2022 10:42-0400 Heart rate 85 /min Roland VELEZ [facility] 03-12-2022 10:42-0400 Respiratory rate 16 /min Roland VELEZ [facility] 03-12-2022 10:42-0400 Systolic blood pressure 139 mm[Hg] Roland VELEZ [facility] Encounters Encounter Date Encounter Type Care Provider Facility Start: 03-03-2025 ambulatory Roland Dominguezi ty:[facility] Start: 08-30-2024 ambulatory DIPTI Andersen ty:[facility] Start: 08-17-2024 End: 08-17-2024 Telephone encounter Audra Andrews RN Hematology/Oncology Comment on above: Results Start: 08-15-2024 End: 08-16-2024 ambulatory Liborio Sarabia MD Work Phone: Hematology/Oncology Comment on above: Test Start: 07-15-2024 End: 07-15-2024 ambulatory Liborio Sarabia MD Work Phone: Hematology/Oncology Comment on above: Concern Start: 07-15-2024 End: 07-17-2024 Telephone encounter Olivia Oneal RN Hematology/Oncology Start: 07-14-2024 End: 07-14-2024 ambulatory JUMA BUCKNER Facility:[facility] Start: 07-14-2024 End: 07-14-2024 Office outpatient [...] encounter procedure Roland VELEZ [facility] Start: 05-28-2024 End: 05-28-2024 ambulatory [facility] Start: 05-26-2024 End: 05-26-2024 ambulatory Roland VELEZ Facility:[id number] Start: 05-20-2024 End: 05-20-2024 Patient encounter procedure [facility] Provider [facility] Department Start: 05-20-2024 End: 05-20-2024 Telephone encounter Audra Andrews RN Hematology/Oncology Comment on above: DX code for screenin g mammogram needed Start: 04-13-2024 Non-patient / Non-visit DO Loi Buckner [facility] Work Phone: Start: 04-13-2024 End: 04-14-2024 ambulatory DO Juma Buckner Work Phone: [facility] Work Phone: Start: 04-13-2024 End: 04-13-2024 Departed Referred DO Juma Buckner Work Phone: [facility] Start: 04-04-2024 Non-patient / Non-visit DO Loi Buckner Work Phone: [facility] Work Phone: Start: 02-29-2024 End: 02-29-2024 ambulatory Roland VELEZ Facility:[facility] Start: 02-29-2024 End: 02-29-2024 Patient encounter procedure Roland VELEZ [facility] Start: 07-17-2023 End: 07-17-2023 ambulatory Juma Dudley Other [facility] Other Start: 07-17-2023 Telephone encounter Juma Buckner [facility] Start: 07-16-2023 End: 07-16-2023 ambulatory Liborio Sarabia MD Work Phone: Hematology/Oncology Comment on above: Malignant neoplasm o f upper-outer quadrant of right breast in female, estrogen receptor positive (HCC) (Primary Dx); Age-related osteoporosis without current pathological fracture Start: 07-16-2023 End: 07-16-2023 Patient encounter procedure Liborio Sarabia MD Work Phone: [facility] Start: 06-19-2023 End: 06-19-2023 ambulatory Juma Buckner Other [facility] Other Start: 06-19-2023 Encounter for genera l adult medical examination without abnormal findings Juma Buckner [facility] Start: 06-19-2023 Periodic preventive med est patient 40-64yrs Juma Dudley [facility] Start: 04-27-2023 Telephone encounter Dipti Baumann RN Hematology/Oncology Comment on above: Orders Start: 10-28-2022 End: 10-28-2022 ambulatory Karina Carlson Other [facility] Other Start: 10-28-2022 Office outpatient ne w 20 minutes Karina Carlson [facility] Start: 08-06-2022 End: 08-06-2022 Patient encounter procedure Roland VELEZ [facility] Start: 06-16-2022 End: 06-16-2022 ambulatory Liborio Sarabia MD Work Phone: Hematology/Oncology Comment on above: Malignant neoplasm o f upper-outer quadrant of right breast in female, estrogen receptor positive (HCC) (Primary Dx); Age-related osteoporosis without current pathological fracture Start: 06-16-2022 End: 06-16-2022 Patient encounter procedure Liborio Sarabia MD Work Phone: [facility] Start: 04-01-2022 End: 04-01-[address] ROLAND VELEZ Facility:[facility] Start: 03-31-2022 End: 04-01-[address] ROLAND VELEZ Facility:[facility] Start: 03-12-2022 End: 03-12-2022 Patient encounter procedure Roland VELEZ [facility] Start: 02-27-2022 End: 02-28-[address] JUMA [...] Adult depression scr eening assessment Ryan Daniels [employer] PROFESSIONAL[employer]GER [employer]STRUCTION Work Phone: Start: 04-30-2021 Mammography Ryan ledesma [employer] PROFESSIONAL.MANAGER [employer]STRUCTION Work Phone: Start: 2021 Extracorporeal shock wave lithotripsy of calculus of kidney Roland VELEZ Start: 11-07-2019 Cystoscopy Roland JESUS JORGEKatherin Appendectomy Roland VELEZ Breast structure (cele dy structure) Roland VELEZ Tonsillectomy Roland VELEZ Plan of Treatment Date Care Activity Detail Author Start: 2035 RSV Vaccine (1 - 1-d ose 75+ series) RSV Vaccine (1 - 1-dose 75+ series) [facility] Start: 07-14-2027 Diabetes Screening Diabetes Screenin g [facility] Start: 05-28-2025 Screening for malign ant neoplasm of breast Mammogram Screening [facility] Start: 08-11-2024 End: 08-11-2024 Patient encounter procedure 08/11/2024 4:00 PM EST Office Visit [facility] [address] [place] [address] [place] [address] LAB [facility] Comment on above: LAB Start: 08-11-2024 End: 11-10-2024 Cancer Ag 27-29 [Units/volume] in Serum or Plasma CA 27.29 BLOOD Lab Routine Malignant neoplasm of upper-outer quadrant of right breast in female, estrogen receptor positive (HCC) Expected: 08/11/2024, Expires: 11/10/2024 [facility] Work Phone: Comment on above: Expected: 08/11/2024 , Expires: 11/10/2024 Start: 07-14-2024 End: 07-14-2024 Follow-up encounter 07/14/2024 3:45 PM EST Visit (SP) Office Hematology/Oncology [address] [place] [address] Liborio Sarabia MD [address] [place] [address] 1 year follow up Hematology/Oncology Comment on above: 1 year follow up Start: 07-14-2024 End: 07-14-2024 Patient encounter procedure 07/14/2024 3:30 PM EST Office Visit [facility] [address] [place] [address] 1 year follow up [facility] Comment on above: 1 year follow up Start: 07-14-2024 End: 10-13-2024 Cancer Ag 27-29 [Units/volume] in Serum or Plasma [facility] Work Phone: Comment on above: Expected: 07/14/2024 , Expires: 10/13/2024 Start: 06-17-2024 DIABETES SCREEN DIABETES SCREEN [facility] Start: 06-17-2024 Diabetes Screening Diabetes Screenin g [facility] Start: 05-08-2024 Covid-19 Vaccine ( season) Covid-19 Vaccine ( season) [facility] Start: 05-08-2024 Covid-19 Vaccine ( season) Covid-19 Vaccine ( season) [facility] Start: 05-08-2024 Influenza vaccination Influenza Vacc ine (#1) [facility] Start: 05-04-2024 Mammography Mammogram Screening [facility] Start: 05-04-2024 Screening for malign ant neoplasm of breast Mammogram Screening [facility] Start: 04-10-2024 Screening for malign ant neoplasm of colon [facility] Start: 05-08-2023 Influenza vaccination C [facility] Start: 05-02-2023 Mammography MAMMOGRAM [facility] Start: 09-07-2022 DEPRESSION ASSESSMENT DEPRESSION ASS ESSMENT [facility] Start: 06-17-2022 Adult depression screening assessment DEPRESSION SCREENING [facility] Start: 05-08-2022 Influenza vaccination C [facility] Start: 04-30-2022 Mammography MAMMOGRAM [facility] Start: 09-07-2021 DEPRESSION ASSESSMENT DEPRESSION ASS ESSMENT [facility] Start: 2020 RSV Vaccine (1 - 1-d ose 60+ series) RSV Vaccine (1 - 1-dose 60+ series) [facility] Start: 2010 SHINGRIX VACCINE (1 of 2) SHINGRIX VACCINE (1 of 2) [facility] Start: 2005 COLOGUARD (FIT-DNA) COLOGUARD (FIT-D NA) [facility] Start: 2005 Colonoscopy COLONOSCOPY [facility] Start: 2005 COLORECTAL CANCER SCREENING COLORECTAL CANCER SCREENING [facility] Start: [address] COLONOGRAPHY [facility] Start: 2005 FECAL OCCULT BLOOD FECAL OCCULT BLOO D [facility] Start: 2005 Lipid 1996 panel - S gisell or Plasma Lipid Screening [facility] Start: 2005 Lipid panel Lipid Screening [facility] Start: 2005 LIPID SCREEN LIPID SCREEN [facility] Start: 2005 Screening for malign ant neoplasm of colon [facility] Start: 2005 SIGMOIDOSCOPY SIGMOIDOSCOPY [facility] Start: 1990 HPV TESTING HPV TESTING [facility] Start: 1981 PAP TESTING PAP TESTING [facility] Start: 1981 Screening for malign ant neoplasm of cervix Cervical Cancer Screening [facility] Start: 1979 Urine microalbumin profile [facility] Start: 1978 Anxiety Screening Anxiety Screening [facility] Start: 1978 Depression Screening Depression Scre ening [facility] Start: 1978 HEPATITIS C SCREENING HEPATITIS C [facility] Start: 1978 Hepatitis C screening Hepatitis C [facility] Start: 1978 HIV SCREENING HIV SCREENING [facility] Start: 1978 HIV screening HIV Screening [facility] Start: 1966 PNEUMOCOCCAL (1 - PCV) PNEUMOCOCCAL (1 - PCV) [facility] Start: 1965 COVID-19 VACCINE (#1) COVID-19 VACCI NE (#1) [facility] Start: 1960 COVID-19 VACCINE (#1) COVID-19 VACCI NE (#1) [facility] End: 07-16-2023 Diagnostic mammography computer-aided detcj bi MEMO DIAGNOSTIC BILAT Radiology Routine Malignant neoplasm of upper-outer quadrant of right breast in female, estrogen receptor positive (HCC) 1 Occurrences starting 06/16/2022 until 07/16/2023 [facility] Work Phone: Comment on above: 1 Occurrences starti ng 06/16/2022 until 07/16/2023 End: 08-14-2024 DXA-FOREARM SKELETON DXA-FOREARM SKELETON Radiology Routine Age-related osteoporosis without current pathological fracture Malignant neoplasm of upper-outer quadrant of right breast in female, estrogen receptor positive (HCC) 1 Occurrences starting 07/16/2023 until 08/14/2024 [facility] Work Phone: Comment on above: 1 Occurrences starti ng 07/16/2023 until 08/14/2024 End: 05-26-2024 MEMO SCREENING MEMO SCREENING Radiology Routine Encounter for screening mammogram for malignant neoplasm of breast 1 Occurrences starting 04/27/2023 until 05/26/2024 [facility] Work Phone: Comment on above: 1 Occurrences starti ng 04/27/2023 until 05/26/2024 End: 08-14-2024 MEMO SCREENING W FAISAL MEMO SCREENING W FAISAL Radiology Routine Age-related osteoporosis without current pathological fracture Malignant neoplasm of upper-outer quadrant of right breast in female, estrogen receptor positive (HCC) 1 Occurrences starting 07/16/2023 until 08/14/2024 [facility] Work Phone: Comment on above: 1 Occurrences starti ng 07/16/2023 until 08/14/2024 End: 08-13-2025 MG Breast Screening MEMO SCREENING Radiology Routine Encounter for screening mammogram for malignant neoplasm of breast 1 Occurrences starting 07/14/2024 until 08/13/[address] [facility] Comment on above: 1 Occurrences starti ng 07/14/2024 until 08/13/2025 [facility] Payers Date Payer Category Payer Self-pay [id number] 2016 Unknown [id number] 2012 Unknown MMO MMO [employer] [id number] 2012-Present [phone] [address] [place] [address] PPO [id number] 1960 Unknown [id number] 1960 Unknown [id number] 1960 Unknown [id number] 1960 Unknown [id number] 1960 Unknown [id number] 1960 Unknown [id number] 1960 Unknown [id number] 1960 Unknown [id number] [id number] 1960 Unknown [id number] [id number] 1960 Unknown [id number] [id number] 1960 Unknown [id number] [id number] 1960 Unknown [id number] [id number] 1960 Unknown [id number] [id number] 1959 Unknown [id number] Unknown [id number] Social History Date Type Detail Facility Start: 04-25-2014 End: 02-14-2021 Tobacco smoking status NHIS Never smoked tobacco (finding) [facility] Start: 1960 Sex Assigned At Female F [facility] Start: 04-25-2014 Tobacco use and exposure Smokeless tobacco non-user [facility] Start: 06-17-2021 End: 07-14-2024 Alcohol intake Current non-drinker of alcohol (finding) [facility] Start: 1960 Sex Assigned At Not on file C [facility] Start: 06-16-2022 End: 07-16-2023 Sex Assigned At Female [facility] Start: 06-06-2022 End: 06-16-2022 Exposure to SARS-CoV-2 (event) Not sure [facility] Tobacco smoking status Never [facility] Start: 06-16-2022 End: 07-16-2023 History of Social function [facility] Functional Status Date Assessment Result Facility 06-07-2024 Functional Status N/A [facility] 02-29-2024 Functional Status N/A [facility] 08-06-2022 Functional Status N/A [facility] 03-12-2022 Functional Status N/A [facility] Clinical Notes 09-02-2012 to 08-17-2024 Telephone Encounter - Audra Andrews RN - 08/17/2024 11:17 AM ESTTelephone Encounter - Audra Andrews RN - 08/17/2024 11:17 AM ESTTelephone Encounter - Ayala James - 07/15/2024 3:33 PM EST Note Date & Type Note Facility 08-17-2024 Telephone encounter Note VM left for pt with BRM message below. Encouraged to call with any questions, needs or concerns. Audra Andrews RN [facility] 08-17-2024 Miscellaneous Notes VM left for pt with BRM message below. Encouraged to call with any questions, needs or concerns. Audra Andrews RN ----- Message from Liborio Sarabia MD sent at 08/17/2024 11:09 AM EST ----- Please inform the patient that her follow-up tumor marker is normal. I believe the lab obtained 07/14 was a false alarm. No need for further follow-up at this time. Call if symptoms develop. documented in this encounter [facility] 08-17-2024 Telephone encounter Note ----- Message from Liborio Sarabia MD sent at 08/17/2024 11:09 AM EST ----- Please inform the patient that her follow-up tumor marker is normal. I believe the lab obtained 07/14 was a false alarm. No need for further follow-up at this time. Call if symptoms develop. [facility] 07-15-2024 Telephone encounter Note Patient has been added to schedule w/ notes documented. Ayala James [facility] 07-15-2024 Miscellaneous Notes Patient has been added to schedule w/ notes documented. Ayala Jacob Discussed results with patient. She verbalized understanding. [...] out possible recurrence. documented in this encounter [facility] 07-15-2024 Telephone encounter Note Discussed results with patient. She verbalized understanding. PSS: Please schedule repeat CA27.29 for 08/11/24 at 4pm. Please put in comments patient gets out of school at 330 may be here before 4.(Patient is already aware of this appointment) BRM: Please sign pending lab order. Klever Oneal RN [facility] 07-15-2024 Telephone encounter Note Called and left a VM message for patient to call back with results and Dr. Sarabia's recommendations. Klever Oneal RN [facility] 07-15-2024 Telephone encounter Note ----- Message from Liborio Sarabia MD sent at 07/15/2024 11:48 AM [facility] ----- Please inform the patient that surprisingly her tumor marker jumped slightly. Significance is unclear, and I would suggest that we repeat the lab in 4 weeks to document significance. Findings like this typically are false alarms. However, if the lab increases any further typically we would stage to rule out possible recurrence. [facility] 07-13-2024 Note HNO ID: [id number] Author: LIBORIO SARABIA MD Service: ? Author [...] Diagnosis Date Breast cancer (HCC) Right; ER+ VA- PAST SURGICAL HISTORY: PAST SURGICAL HISTORY Procedure [...] 197 RADIOLOGY/OTHER STUDIES: 05/28/2024 Bilateral screening mammogram ([employer]) No mammographic evidence of malignancy.. Routine follow-up in 1 year recommended. 05/28/2024 Bone density DEXA ([employer]) Osteopenia. Max T score -2.4 left femoral neck, left femur, and right femur. ASSESSMENT/PLAN: 1. 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 [facility] 07-13-2024 History of Presen t illness Narrative [...] Diagnosis Date Breast cancer (HCC) Right; ER+ [facility]- PAST SURGICAL HISTORY: PAST SURGICAL HISTORY Procedure [...] 197 RADIOLOGY/OTHER STUDIES: 05/28/2024 Bilateral screening mammogram ([employer]) No mammographic evidence of malignancy.. Routine follow-up in 1 year recommended. 05/28/2024 Bone density DEXA ([employer]) Osteopenia. Max T score -2.4 left femoral neck, left femur, and right femur. ASSESSMENT/PLAN: 1. 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 Buckner documented in this encounter [facility] 06-07-2024 Hospital Discharg e instructions Patient [...] you may eat and drink normally. Take eflv-ack-blgqrsp and prescription medicines only as told by your health care provider. Let your health care provider know about any medicines that you are taking, including eyxi-fnp-xpydkci medicines, vitamins, herbs, and supplements. Choose a [...] provider. Document Revised: 02/28/2022 Document Reviewed: 02/28/2022 [employer] Patient Education 2023 [employer]. 06/07/2024 15:56:06 Kidney Stones, Zsud-an-Lehp Kidney Stones Kidney stones are rock-like masses [...] Follow these instructions at home: Medicines Take yknz-obn-pnglprr and prescription medicines only as told by [...] provider. Document Revised: 04/17/2023 Document Reviewed: 04/17/2023 [employer] Patient Education 2023 [employer]. Follow Up Care 06/01/2024 11:18:05 With:PATRICIA STRICKLAND, Roland Barksdale, URL Address: [facility] [address] [place] [address] [phone] When: Unknown [facility] 06-07-2024 Note Patient Education Urology 24-Hour Urine [...] may eat and drink normally. ? Take lxyy-cih-isgqign and prescription medicines only as told by your health care provider. ? Let your health care provider know about any medicines that you are taking, including lycm-pyl-htgmpnr medicines, vitamins, herbs, and supplements. ? Choose [...] provider. Document Revised: 02/28/2022 Document Reviewed: 02/28/2022 [employer] Patient Education ? 2023 [employer]. Kidney Stones Kidney stones are rock-like masses [...] usually spreads to (more content not included)... [facility] 05-20-2024 Telephone encounter Note [facility] called for DX code to be added to screening mammogram order. Z12.31 added and faxed to requested # [phone]. Pt is scheduled next week. Audra Andrews RN [facility] 05-20-2024 Miscellaneous Notes [facility] called for DX code to be added to screening mammogram order. Z12.31 added and faxed to requested # [phone]. Pt is scheduled next week. Audra Andrews RN documented in this encounter [facility] 02-29-2024 Hospital Discharg e instructions Patient [...] include: ?8 oz (237 mL) of milk, sjutogn-cwczhztwvoxd-vnryu milk, and calcium-fortifiedfruit juice. Calcium-fortified means that [...] ?Spinach (cooked), rhubarb, beets, sweet potatoes, and Vietnamese chard. ?Peanuts. ?Potato chips, chinese fries, and baked potatoes with skin on. ?Nuts and nut products. ?Chocolate. If you regularly take a diuretic medicine, make sure to eat at least 1 or 2 servings of fruits or vegetables that are high in potassium each day. These include: ?Avocado. ?Banana. ?Dolores, prune, carrot, or tomato juice. ?Baked potato. [...] magnesium, fish oil, or vitamin B6. Take ptvx-cdf-qfbvaoq and prescription medicines only as told by [...] Casseroles. Pizza. Lasagna. Frozen meals. Potato chips. Indonesian fries. The items listed above may not [...] provider. Document Revised: 12/04/2022 Document Reviewed: 12/04/2022 [employer] Patient Education 2022 [employer]. Follow Up Care 08/06/2022 16:16:25 With:PATRICIA STRICKLAND, Roland Barksdale, URL Address: [facility] [address] [place] [address] [id number] When: Unknown Comments:1 yr w/ PATRICIA [facility] 07-17-2023 Evaluation note Encounter Date Diagnosis Assessment Notes Jul, Malignant neoplasm of upper-outer quadrant of right female breast (ICD-10 - C50.411) Lumpectomy 2011, adjuvent chemotherapy, adjuvent radiation therapy, completed 9 years hormone therapy Jul, Estrogen receptor positive status [ER+] (ICD-10 - Z17.0) [employer] Other [id number] Nurse Note* Akua Jorge MA - 07/16/2023 3:02 PM EST Patient would like opinion on right hand pinky finger she has a bump her PCP looked at it said it was probably a cyst but she would still like your opinion, it has not changed at all. Akua Jorge MA [facility] History of Present illness Narrative* Liborio [...] Diagnosis Date Breast cancer (HCC) Right; ER+ VA- PAST SURGICAL HISTORY: PAST SURGICAL HISTORY Procedure [...] 197 RADIOLOGY/OTHER STUDIES: 05/04/2023 Bilateral diagnostic mammogram ([employer]) Stable postsurgical change in the right breast. No mammographic evidence of malignancy.. Routine follow-up in 1 year recommended. 05/02/2022 Bone density DEXA ([employer]) Osteoporosis. Max T score -2.6 left femoral neck, left femur, and right femur. ASSESSMENT/PLAN: 1. 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 Buckner [facility] note* Encounter Date Diagnosis Assessment [...] to the patient. Recommend referral for excision. 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 Faxed order April 27, 2023 4:23 PM Ayala James * Telephone Encounter - Sheila Muir - 04/27/2023 2:22 PM EDT Will fax over order thanks Nicol * Telephone Encounter - Dipti Baumann RN - 04/27/2023 1:14 PM EDT Patient is scheduled for aida diagnostic memo. Per their protocol since she is so far out from diagnosis they need a aida screening ordered with a screening dx. Dipti Baumann RN ' BRM: Order pended for signature. PSS: Please fax to [phone] Thanks. Dipti Baumann RN [facility] Evaluation note* Encounter Date Diagnosis Assessment [...] to ER immediately, Conjunctivitis material was printed [employer] Other 11-30-2022 Hospital Discharge instructions Patient Education [...] include: ?Spinach. ?Rhubarb. ?Beets. ?Potato chips and chinese fries. ?Nuts. If you regularly take a diuretic medicine, make sure to eat at least 1 2 fruits or vegetables high in potassium each day. These include: ?Avocado. ?Banana. ?Dolores, prune, carrot, or tomato juice. ?Baked potato. [...] Casseroles. Pizza. Lasagna. Frozen meals. Potato chips. Indonesian fries. Summary You can reduce your risk [...] 12/19/2011 Document Revised: 12/14/2019 Document Reviewed: 08/04/2017 [employer] Patient Education 2020 [employer]. Follow Up Care 04/30/2022 15:39:48 With:PATRICIA STRICKLANDRoland, URL Address: [facility] [address] [place] [address]- When: Unknown [facility] 10-10-2022 History of Present illness [...] Diagnosis Date Breast cancer (HCC) Right; ER+ [facility]- PAST SURGICAL HISTORY: PAST SURGICAL HISTORY Procedure [...] 197 RADIOLOGY/OTHER STUDIES: 05/02/2022 Bone density DEXA ([employer]) Osteoporosis. Max T score -2.6 left femoral neck, left femur, and right femur. And left femur 05/02/2022 Bilateral diagnostic mammogram ([employer]) Stable postsurgical change in the right breast. No mammographic evidence of malignancy or significant change. Routine follow-up in 1 year recommended. ASSESSMENT/PLAN: 1. 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 Buckner documented [facility] Discharge instructions Patient Education 03/12/2022 [...] Follow these instructions at home: Medicines Take tbgl-xlq-ycsguev and prescription medicines only as told by [...] 08/24/2006 Document Revised: 01/10/2020 Document Reviewed: 01/10/2020 [employer] Patient Education 2020 [employer]. Follow Up Care 02/13/2022 09:45:15 With:PATRICIA STRICKLAND, Roland Barksdale, URL Address: [facility] [address], [place] [address]- When:3 months Comments:w/metabolic workup [facility] 05-23-2022 Miscellaneous Notes* Telephone Encounter - Ryan Daniels APRN.CNP - 01/27/2022 4:44 PM EDT The following approved medication requests have been refused. Refused Prescriptions Disp Refills anastrozole (ARIMIDEX) 1 mg tablet [Pharmacy Med Name: ANASTROZOLE TABS 1MG] 90 tablet 3 Sig: TAKE 1 TABLET DAILY OFELIA: No Refused By: RYAN DANIELS Reason for Refusal: A Refill not appropriate Ryan Daniels APRN.MANAGER OF CONSTRUCTION documented [facility] History of Past illness Narrative* Problem Noted Date Resolved Date Breast CA 09/02/2012 09/16/2018 Overview: Right; ER+ [facility]-; HER2 - documented as of this encounter (statuses as of 01/28/2022) [place] [address]-27-2012 History of Past illness Narrative* Problem Noted Date Resolved Date Breast CA 09/02/2012 09/16/2018 Overview: Right; ER+ [facility]-; HER2 - documented as of this encounter (statuses as of 06/17/2022) [place] [address]-27-2012 History of Past illness Narrative* Problem Noted Date Diagnosed Date Resolved Date Breast CA 09/02/2012 09/16/2018 Overview: Right; ER+ [facility]-; HER2 - documented as of this encounter (statuses as of 04/28/2023) [facility]12-27[facility]2012 History of Past illness Narrative* Problem Noted Date Diagnosed Date Resolved Date Breast CA 09/02/2012 09/16/2018 Overview: Right; ER+ [facility]-; HER2 - documented as of this encounter (statuses as of 07/17/2023) [facility] Future Appointments Appointment Date:06/23/2022 03:00:00 PM Scheduled Provider:Roland VELEZ MD Location:[facility] [place] Appointment Type:URO Office Visit [facility] Evaluation + Plan note Future Appointments Appointment Date:08/10/2023 02:45:00 PM Scheduled Provider:Roland VELEZ MD Location:[facility] [place] Appointment Type:URO Office Visit [facility] Evaluation + Plan note Future Appointments Appointment Date:03/03/2025 08:45:00 AM Scheduled Provider:Roland VELEZ MD Location:[facility] [place] Appointment Type:URO Office Visit [facility] [place] evaluation + Plan note Future Appointments Appointment Date:08/30/2024 09:00:00 AM Scheduled Provider:DIPTI TOVAR PA-C Location:[facility] [place] Appointment Type:URO Office Visit Appointment Date:03/03/2025 08:45:00 AM Scheduled Provider:Roland VELEZ MD Location:[facility] [place] Appointment Type:URO Office Visit [facility] Evaluation noteNo assessment information available [facility]* Diagnosis Malignant neoplasm of upper-outer quadrant of right breast in female, estrogen receptor positive (HCC)- Primary Age-related osteoporosis without current pathological fracture Senile osteoporosis [facility] Diagnosis Encounter for screening mammogram for malignant neoplasm of breast- Primary Other screening mammogram [facility]* Diagnosis Malignant neoplasm of upper-outer quadrant of right breast in female, estrogen receptor positive (HCC)- Primary Age-related osteoporosis without current pathological fracture Senile osteoporosis documented in this encounter [facility] note* Diagnosis Malignant neoplasm of upper-outer quadrant of right breast in female, estrogen receptor positive (HCC)- Primary Encounter for screening mammogram for malignant neoplasm of breast Other screening mammogram [facility] Hospital note* Diagnosis Malignant neoplasm of upper-outer quadrant of right breast in female, estrogen receptor positive (HCC)- Primary documented in this encounter [facility] general Narrative - Reported* Type Description Date Medical History Breast cancer Surgical History appendectomy Surgical History tonsillectomy Surgical History lumpectomy, right breast x2 201 2 Hospitalization History see above surgical [employer] Other History general Narrative - Reported* Type Description Date Medical History Breast cancer Medical History Nephrolithiasis Medical History Osteopenia of lumbar spine Surgical History appendectomy Surgical History tonsillectomy Surgical History lumpectomy, right breast x2 201 2 Hospitalization History see above surgical histo [employer] Other Hospital course Narrative No data available for this section [facility] Progress note No data available for this section [facility] Reason for referral (narrative)* Diagnostic Procedure Only (Routine) - Pending Review Specialty Diagnoses / Procedures Referred By Estebanac t Referred To Contact [facility] Diagnoses Malignant neoplasm of upper-outer quadrant of right breast in female, estrogen receptor positive (HCC) Procedures MEMO DIAGNOSTIC BILAT DIAGNOSTIC MAMMOGRAPHY COMPUTER-AIDED DETCJ Liborio Miranda MD [address] [place] [address] [place] [address] [facility] [address] [place] [phone] Referral ID Status Reason Start Date Expiration Date Visits Requested Visits Authorized [id number] Pending Review Auto-Generat ed Referral 2 07/16/2023 1 1 [facility] for referral (narrative)* Diagnostic Procedure Only (Routine) - Pending Review Specialty Diagnoses / Procedures Referred By Contac t Referred To Contact [facility] Diagnoses Encounter for screening mammogram for malignant neoplasm of breast Procedures MEMO SCREENING SCREENING MAMMOGRAPHY BI 2-VIEW BREAST INC Liborio Chau MD [address] [place] [address] [place] [address] [facility] [address] [place] [phone] Referral ID Status Reason Start Date Expiration Date Visits Requested Visits Authorized [id number] Pending Review Auto-Generat ed Referral 04/27/2023 05/26/2024 1 1 [facility] for referral (narrative)* Diagnostic Procedure Only (Routine) - Pending Review Specialty Diagnoses / Procedures Referred By Contac t Referred To Contact XR IMAGING Diagnoses Age-related osteoporosis without current pathological fracture Malignant neoplasm of upper-outer quadrant of right breast in female, estrogen receptor positive (HCC) Procedures DXA-FOREARM SKELETON DXA BONE DENSITY STUDY 1/>SITES APPENDICLR Liborio Morales MD [address] [place] [address] [place] [address] [id number] Referral ID Status Reason Start Date Expiration Date Visits Requested Visits Authorized [id number] Pending Review Auto-Generat ed Referral 07/16/2023 08/14/2024 [...] BI 2-VIEW BREAST INC Liborio Chau MD [address] [place] [address] [place] [address] [facility] [place] [address] Referral ID Status Reason Start Date Expiration Date Visits Requested Visits Authorized [id number] Pending Review Auto-Generat ed Referral 07/16/2023 08/14/2024 1 [facility] Diagnostic Procedure Only (Routine) - New Request Specialty Diagnoses / Procedures Referred By Contac t Referred To Contact [facility] Diagnoses Encounter for screening mammogram for malignant neoplasm of breast Procedures MEMO SCREENING SCREENING MAMMOGRAPHY BI 2-VIEW BREAST INC Liborio Chau MD [address] [place] [address] [place] [address] [facility] [address] [place] [address] Referral ID Status Reason Start Date Expiration Date Visits Requested Visits Authorized [id number] New Request Auto-Generat ed Referral 07/14/2024 08/13/2025 1 1 [facility] Chief Complaint and Reason for Visit Chief Complaint kidney stone kidney stone Chief Complaint Unknown Family History Relationship Condition Age at Onset Recorded Date/T haylee father Hypertension Unknown Congestive heart failure Unknown Relationship Condition Age at Onset Recorded Date/T haylee father Hypertension Unknown Congestive heart failure Unknown father Heart disease Unknown Unknown Hernia Unknown Advance Directives Advance Directive Response Recorded Date/ Time Advance [...] or prosecute any alcohol or drug abuse patient.[facility] the event this information is protected by the Federal Confidentiality of Alcohol and Drug Abuse Patient Records regulations: The Federal rules restrict any use of the information to criminally investigate or prosecute any alcohol or drug abuse patient.[facility] the event this information is protected by the Federal Confidentiality of Alcohol and Drug Abuse Patient Records regulations: The Federal rules restrict any use of the information to criminally investigate or prosecute any alcohol or drug abuse patient.[facility] the event this information is protected by the Federal Confidentiality of Alcohol and Drug Abuse Patient Records regulations: The Federal rules restrict any use of the information to criminally investigate or prosecute any alcohol or drug abuse patient.[facility]In the event this information is protected by the Federal Confidentiality of Alcohol and Drug Abuse Patient Records regulations: The Federal rules restrict any use of the information to criminally investigate or prosecute any alcohol or drug abuse patient.[facility] the event this information is protected by the Federal Confidentiality of Alcohol and Drug Abuse Patient Records regulations: The Federal rules restrict any use of the information to criminally investigate or prosecute any alcohol or drug abuse patient.[facility] Hospital[facility] the event this information is protected by the Federal Confidentiality of Alcohol and Drug Abuse Patient Records regulations: The Federal rules restrict any use of the information to criminally investigate or prosecute any alcohol or drug abuse patient.[facility] HospitalIn the event this information is protected by the Federal Confidentiality of Alcohol and Drug Abuse Patient Records regulations: The Federal rules restrict any use of the information to criminally investigate or prosecute any alcohol or drug abuse patient.[facility] HospitalIn the event this information is protected by the Federal Confidentiality of Alcohol and Drug Abuse Patient Records regulations: The Federal rules restrict any use of the information to criminally investigate or prosecute any alcohol or drug abuse patient.[facility] HospitalIn the event this information is protected by the Federal Confidentiality of Alcohol and Drug Abuse Patient Records regulations: The Federal rules restrict any use of the information to criminally investigate or prosecute any alcohol or drug abuse patient.[facility] HospitalIn the event this information is protected by the Federal Confidentiality of Alcohol and Drug Abuse Patient Records regulations: The Federal rules restrict any use of the information to criminally investigate or prosecute any alcohol or drug abuse patient.[facility] Reason for Visit (unrecogniz ed section and content) Reason Comments Refill Request Reason Comments Breast Cancer Reason Comments Orders Reason Comments Breast Cancer 1 year follow up Reason Comments DX code for screening mammogram needed Reason Comments Breast Cancer Follow up Reason Comments Results Care Teams (unrecognized sec tion and content) Gaggerman Relationship Specialty Start Date End Date Samm Palmer PCP - General Family Practice 01/15/12 Gaggerman Relationship Specialty Start Date End Date Juma Buckner DO [address] [place] [address] PCP - General Internal Medicine 06/16/22 Gaggerman Relationship Specialty Start Date End Date Juma Buckner DO [address] [place] [address] PCP - General Internal Medicine 06/16/22 Gaggerman Relationship Specialty Start Date End Date Juma Buckner DO [address] [place] [address] PCP - General Internal Medicine 06/16/22 Team [...] Attending Provider Active Start: April 13, 2024 Gaggerman Relationship Specialty Start Date End Date Juma Buckner DO [address] [place] [address] PCP - General Internal Medicine 06/16/22 Gaggerman Relationship Specialty Start Date End Date Juma Buckner DO [address] [place] [address] PCP - General Internal Medicine 06/16/22 Gaggerman Relationship Specialty Start Date End Date Juma Buckner DO [address] [place] [address] PCP - General Internal Medicine 06/16/22 Gaggerman Relationship Specialty Start Date End Date Juma Buckner DO [address] [place] [address] PCP - General Internal Medicine 06/16/22 Gaggerman Relationship Specialty Start Date End Date Juma BucknerDO [address] [facility] [place] [address] PCP - General Internal Medicine 06/16/22 INFORMATION SOURCE (unrecogn ized section and content) DATE CREATED AUTHOR 04/08/2022 [facility] DATE CREATED AUTHOR AUTHOR'S ORGANIZ ATION 04/20/2024 [facility] DATE CREATED AUTHOR AUTHOR'S ORGANIZ ATION 05/30/2024 [facility] DATE CREATED AUTHOR AUTHOR'S ORGANIZ ATION 06/09/2024 [facility] DATE CREATED AUTHOR AUTHOR'S ORGANIZ ATION 07/18/2024 [facility] FOR RECORDS PERTAINING TO PATIENTS WHO ARE [...] BE BASED ON THE PRIMARY CLINICAL RECORDS. [employer] provides no warranty or guarantee of the accuracy or completeness of information in this document.
== END 2024-08-20 10:25 | disposition home or self-care (01) ==
LOC: RAD 10:26
PROVIDERS: PCP Internal Medicine; Visit Provider Urology
DX: N20.0 Calculus of kidney (principal)
CPT/HCPCS: 74018

== ENCOUNTER 2024-10-14 12:05 | Outpatient (OUT) | payer OTHER, SELFPAY ==
[2024-10-13 10:20] LABS: Cholesterol 188 mg/dL (<=200); HDL Cholesterol 63 mg/dL (40-60); Triglycerides 49 mg/dL (<=150); VLDL CHOLESTEROL 9.8 mg/dL
== END 2024-10-14 12:06 | disposition home or self-care (01) ==
LOC: LAB 12:05
PROVIDERS: PCP Internal Medicine; Visit Provider Internal Medicine
DX: Z00.00 Encounter for general adult medical examination without abnormal findings (principal); R03.0 Elevated blood-pressure reading, without diagnosis of hypertension; E55.9 Vitamin D deficiency, unspecified
CPT/HCPCS: 36415; 80061; 82306

== ENCOUNTER 2025-01-10 16:11 | Outpatient (OUT) | payer OTHER, SELFPAY | END 2025-01-10 16:12 | disposition home or self-care (01) | LOC: LAB 16:12 | PROVIDERS: PCP Internal Medicine; Visit Provider Internal Medicine | DX: E55.9 Vitamin D deficiency, unspecified (principal) | CPT/HCPCS: 36415; 82306 ==

== ENCOUNTER 2025-02-24 09:20 | Outpatient (OUT) | payer OTHER, SELFPAY ==
--- NOTE | 2025-02-24 | XR_ITS ---
[facility] [place] [id number] Patient Name: ALBERT ABREU MRN: [id number] date: 1960 Sex: F Assigned Patient Location: [facility] Current Patient Location: [facility] Accession/Order Number: [id number] Exam Date: 02/24/2025 10:15 Report Date: 02/24/2025 10:18 At the request of: ROLAND GOMEZ MD Procedure: XR abdomen 1V SINGLE VIEW ABDOMEN COMPARISON: CT 05/28/2024 and plain films 08/20/2024 CLINICAL DATA: Follow-up of kidney stones. Supine view of the abdomen and pelvis was obtained. There is air within the stomach. There is mild air as well as stool within the colon, greater on the right where the kidney is partially obscured. No dilated small bowel is visualized. There is a right renal stone measuring approximately 5 mm in size. No suspect left renal or ureteral stones are identified. There are pelvic phleboliths. No soft tissue masses are noted. There is dextroscoliotic curvature and degenerative change at the spine. XR/XR abdomen 1V IMPRESSION: RIGHT NEPHROLITHIASIS. Impression dictated by: Tasha Liz M.D. 02/24/2025 10:18 AM Dictation Location: [place] [address] Electronically authenticated by: [id number] Y Date: 02/24/2025 10:18
--- OUTSIDE RECORDS SUMMARY | 2025-02-24 09:40 | XMS_ITS | CCD ---
Author Organization [facility] Informat ion Partnership [facility] Care Team Providers Care Miller Supervisor Name Role Phone Adrian Oneal Jr Attending [...] Unavailable BALL, DR GREEN Primary Care Unavailable PATRICIA, DR WATKINS Attending Unavailable VELEZ, DR WATKINS Consulting Unavailable VELEZ, DR WATKINS Admitting Unavailable BALL, DR GREEN Primary Care Unavailable VELEZ, DR WATKINS Attending Unavailable VELEZ, DR WATKINS Consulting Unavailable BALL, DR GREEN Referring Unavailable BALL, DR GREEN Primary Care Unavailable PATRICIA, DR WATKINS Admitting Unavailable VELEZ, DR WATKINS Attending Unavailable VELEZ, DR WATKINS Consulting Unavailable ZIEBTIFFANIE, DR ISRRAEL [place] Consulting Unavailable Juma Buckner DO Primary Care Provider Karina Carlson Unavailable Juma Buckner DO Primary Care Provider Juma Buckner Unavailable DO Juma Buckner Primary Care Provider [phone] DO Juma Buckner Attending Provider Juma Buckner Attending Unavailable Juma Buckner Primary Care Unavailable Juma Buckner Admitting Unavailable Juma Buckner DO Primary Care Provider RYAN DANIELS Referring Unavailable JUMA BUCKNER Primary Care Unavailable LIBORIO SARABIA Attending Unavailable LIBORIO SARABIA Referring Unavailable JUMA BUCKNER Primary Care Unavailable JUMA BUCKNER Primary Care Unavailable JUMA BUCKNER Primary Care Unavailable LIBORIO SARABIA Attending Unavailable DIPTI TOVAR Attending Unavailable DIPTI TOVAR Admitting Unavailable Roland VELEZ Attending Unavailable Roland VELEZ Attending Unavailable Roland VELEZ Attending Unavailable DIPTI TOVAR Attending Unavailable DIPTI TOVAR Admitting Unavailable DIPTI TOVAR Attending Unavailable Roland VELEZ Attending Unavailable Roland VELEZ Referring Unavailable Roland VELEZ Attending Unavailable Allergies Allergy Classification Reported Allergen(s) Allergy Type Date of Onset Reaction(s) Facility Cephalosporins (antibiotic) (1 source) Cephalexin Drug Allergy 1 [facility] (20 sources) Cephalexin; Translations: [cephalexin] Drug Allergy 7 Unknown, Weal (disorder) [facility] (5 sources) Cephalexin; Translations: [Keflex] Drug Allergy [facility] Repository (1 source) Cephalexin Drug Allergy 3 [facility] Repository Medications Current Medications Medication Drug [...] Antibacterial, Polymyxin-class Antibacterial, Corticosteroid Start: 10-28-2022 Maxitrol 3.5-51097-1.1 apply directly under left eyelashes Ophthalmic Three [...] citrate 10 meq extended release oral tablet (4 sources) Start: 02-29-2024 End: 08-25-2025 potassium CITRATE 10 mEq ER Tab 20 mEq, 2 tab(s), Oral, BID for 30 day(s), 120 tab(s), Refill(s) 11, [facility]/pharmacy #[id number], 165, cm, 02/29/24 11:29:00 EDT, Height/Length Dosing, 58.5, kg, 06/07/24 15:33:00 EDT, Weight Dosing Start Date: 08/30/24 Stop Date: 08/25/25 Status: Ordered Vitamin D (5 sources) Start: 08-06-2022 Vitamin D Inte rnational_Unit, [...] tab(s), Refills(s) 3, Pharmacy: [facility] #[id number], 165, cm, 08/06/22 15:18:00 EST, Height/Length Dosing, [...] Date Documented Da te Episodic/Chronic Abdominal pain (6 sources) Lower abdominal pain 10-27-2019 Episodic Calculus [...] 04-12-2024 Chronic Genitourinary symptoms and ill-defined conditions (20 sources) Microscopic hematuria; Translations: [Asymptomatic microscopic hematuria] Onset: 04-15-2021 Episodic Inflammation; infection of eye (except that caused by tuberculosis or sexually transmitteddisease) (1 source) Unspecified acute conjunctivitis, left eye Episodic Joint disorders and dislocations; trauma-related (3 sources) Loose body in knee; Translations: [Loose body in knee, unspecified knee] Chronic Menopausal disorders (4 sources) Atrophic vaginitis; Translations: [Postmenopausal atrophic vaginitis] [...] Episodic Other diseases of bladder and urethra (5 sources) Urethral stricture; Translations: [Unspecified urethral stricture, female] Onset: 06-07-2024 Episodic Other diseases of kidney and ureters (6 sources) Hydronephrosis due to ureteral obstruction 11-03-2019 Episodic Other injuries and conditions due to external causes (1 source) Foreign body in bladder; Translations: [Foreign body in bladder, initial encounter] Onset: 06-07-2024 Episodic Other screening for suspected conditions (not mental disorders or infectious disease) (4 sources) Patient encounter status; Translations: [Encounter for screening mammogram for malignant neoplasm of breast] Onset: 05-28-2024 04-27-2023 Episodic Other skin disorders (1 source) Localized swelling, mass and lump, unspecified Episodic Residual codes; unclassified (2 sources) Abnormal finding on evaluation procedure 08-30-2024 Episodic Unclassified (6 sources) Asymptomatic microscopic hematuria 12-04-2020 Past or Other Problems Problem Classification Problem Date Documented Da te Episodic/Chronic Cancer of breast (1 source) Personal history of malignant neoplasm of breast; Translations: [PERS HX MALIGNANT NEOPLASM BREAST] Onset: 04-15-2021 Episodic Other bone disease and musculoskeletal deformities (11 sources) Osteopenia; Translations: [Other specified disorders of bone density and structure, unspecified site] Onset: 09-18-2018 09-18-2018 Episodic Residual codes; unclassified (3 sources) Estrogen receptor positive status [ER+]; Translations: [Estrogen receptor positive status (ER+)] Onset: 09-16-2018 Episodic Results Test Name Value Interpretation Reference Range Facility C Urineon 09-01-2024 Bacteria identified Cx Nom (U) Microbiology PROCEDURE: Urine Culture [R1] SOURCE: U CleanCatch BODY SITE: COLLECTED DATE/TIME: 08/30/2024 10:18 EST RECEIVED DATE/TIME: 08/30/2024 16:02 EST START DATE/TIME: 08/30/2024 16:02 EST FREE TEXT SOURCE: DIPTI TOVAR PA-C, PA-C, JENNIFER E FINAL REPORTS Final Report [] Verified Date/Time: 09/01/2024 09:06 EST 3,000 cfu/ml Mixed skin contaminants Performing Locations R1: This test was performed at: [facility], [address] [place] [address], [address] , [place], [facility] Comment on above: Performed By: #### 2 [id number] #### [facility] [address] [place] [address] URINALYSISOrdered By: SYSTEM SYSTEM on 08-30-2024 Bacteria Auto Ql (U) 1+ /HPF Invalid Interpretation Code Trace/HPF [facility] UA Auto SS Bilirubin Ql (U) Negative Normal Negativemg/dL [facility] UA Auto SS Calcium oxalate crystals Computer assisted Ql (U) Present graded/HPF Invalid Interpretation Code [facility] UA Auto SS Clarity (U) Turbid *ABN* (08/30/24 10:18 AM) Invalid Interpretation Code Clear [facility] UA Auto SS Color (U) Yellow 1 (08/30/24 10:18 AM) Normal Yellow [facility] UA Auto SS Comment on above: Interpretive Data: M icroscopic readings are only performed on those samples that meet specific criteria set forth by [facility]. Epithelial cells.renal Computer assisted Ql (U) 0-2 graded/HPF Invalid Interpretation Code [facility] UA Auto SS Epithelial cells.squamous Auto (Urine sed) [#/Area] 0-2 graded/HPF Invalid Interpretation Code [facility] UA Auto SS Glucose Ql (U) Negative Normal Negativemg/dL [facility] UA Auto SS Hemoglobin Auto test strip (U) [Mass/Vol] 2+ mg/dL Invalid Interpretation Code Negativemg/dL [facility] UA Auto SS Ketones Auto test strip Ql (U) Negative Normal Negativemg/dL [facility] UA Auto SS Leukocyte esterase Auto test strip Ql (U) 25 Yamilka/uL Yamilka/uL Normal NegativeLeu/u L [facility] UA Auto SS Mucus Auto Ql (U) 3+ graded/LPF Invalid Interpretation Code Negativegrade d/LPF [facility] UA Auto SS Nitrite Auto test strip Ql (U) Negative Normal Negativemg/dL [facility] UA Auto SS pH (U) 6.0 *NA* (08/30/24 10:18 AM) Invalid Interpretation Code 5.0 - 9.0 [facility] UA Auto SS Protein Ql (U) Trace mg/dL Invalid Interpretation Code Negativemg/dL [facility] UA Auto SS RBC Ql (U) 21-30 graded/HPF Invalid Interpretation Code 0-3graded/HPF [facility] UA Auto SS Specific gravity (U) [Rel density] 1.030 *NA* (08/30/24 10:18 AM) Invalid Interpretation Code 1.005 - 1.030 [facility] UA Auto SS Urobilinogen (U) [Mass/Vol] Negative Normal Negativemg/dL [facility] UA Auto SS WBC Auto (Urine sed) [#/Area] 6-15 graded/HPF Invalid Interpretation Code 0-5graded/HPF [facility] UA Auto SS URINALYSISOrdered By: Georgina Bridgette on 08-30-2024 UA Spec Desc Clean Catch (08/30/24 10:18 AM) Normal [facility] UA Auto SS Urinalysis with Microon 08-08 Bacteria Auto Ql (U) 1+ /HPF Abnormal Trace Fish [facility] Comment on above: Performed By: #### 4 [id number] #### [facility] [address] [place] [address] Bilirubin Ql (U) Negative Normal Negative [facility] Comment on above: Performed By: #### 4 [id number] #### [facility] [address] [place] [address] Calcium oxalate crystals Computer assisted Ql (U) Present Abnormal [facility] Comment on above: Performed By: #### 4 [id number] #### [facility] [address] [place] [address] Clarity (U) Turbid Abnormal Clear [facility] Comment on above: Performed By: #### 4 [id number] #### [facility] [address] [place] [address] Color (U) Yellow Normal Yellow [facility] Comment on above: Result Comment: Micr oscopic readings are only performed on those samples that meet specific criteria set forth by [facility]. Performed By: #### 4 [id number] #### [facility] [address] [place] [address] Epithelial cells.renal Computer assisted Ql (U) 0-2 Abnormal [facility] Comment on above: Performed By: #### 4 [id number] #### [facility] [address] [place] [address] Epithelial cells.squamous Auto (Urine sed) [#/Area] 0-2 Invalid Interpretation Code [facility] Comment on above: Performed By: #### 4 [id number] #### [facility] [address] [place] [address] Glucose Ql (U) Negative Normal Negative [facility] Comment on above: Performed By: #### 4 [id number] #### [facility] [address] [place] [address] Hemoglobin Auto test strip (U) [Mass/Vol] 2+ mg/dL Abnormal Negative [facility] Comment on above: Performed By: #### 4 [id number] #### [facility] [address] [place] [address] Ketones Auto test strip Ql (U) Negative Normal Negative [facility] Comment on above: Performed By: #### 4 [id number] #### [facility] [address] [place] [address] Leukocyte esterase Auto test strip Ql (U) 25 Yamilka/uL Normal Negative [facility] Comment on above: Performed By: #### 4 [id number] #### [facility] [address] [place] [address] Mucus Auto Ql (U) 3+ [id number] Abnormal Negative [facility] Comment on above: Performed By: #### 4 [id number] #### [facility] [address] [place] [address] Nitrite Auto test strip Ql (U) Negative Normal Negative [facility] Comment on above: Performed By: #### 4 [id number] #### [facility] [address] [place] [address] pH (U) 6.0 [pH] Invalid Interpretation Code 5.0-9.0 [facility] Comment on above: Performed By: #### 4 [id number] #### [facility] [address] [place] [address] Protein Ql (U) Trace Abnormal Negative [facility] Comment on above: Performed By: #### 4 [id number] #### [facility] [address] [place] [address] RBC Ql (U) 21-30 Abnormal 0-3 [facility] Comment on above: Performed By: #### 4 [id number] #### [facility] [address] [place] [address] Specific gravity (U) [Rel density] 1.030 Invalid Interpretation Code 1.005-1.030 [facility] Comment on above: Performed By: #### 4 [id number] #### [facility] [address] [place] [address] Urobilinogen (U) [Mass/Vol] Negative Normal Negative [facility] Comment on above: Performed By: #### 4 [id number] #### [facility] [address] [place] [address] WBC Auto (Urine sed) [#/Area] 6-15 Abnormal 0-5 [facility] Comment on above: Performed By: #### 4 [id number] #### [facility] [address] [place] [address] Type of Urine collection method Clean Catch Normal [facility] Comment on above: Performed By: #### 4 [id number] #### [facility] [address] [place] [address] Urology Office/Clinic Noteon 08-30-2024 Urology Office/Clinic Note Urology Office/Clinic Note HPI Staff 64 year old female here for F/U with met w/up and KUB Previous DX: kidney stones, unspecified urethral stricture and vaginal atrophy S/P R ESWL 04/14/24 & cysto/ud, R RUDDY, R pyeloscopy, R stent placement 05/26/24 KUB done 08/20/24 and met w/up 08/01/24 Dysuria: no Incomplete bladder emptying: no Hematuria: no Frequency: q2-3hrs Urgency: no Nocturia: 0-1x Stream:good stream Leaking: no Post void dripping: no Wearing pads/ Depends: no Urge incontinence: no Stress incontinence: no Incontinence without Sensory Awareness: no Abdominal pain: no Flank pain: no Sexual complaints: no Review of Systems no fever, chills, malaise, myalgia. no rash/lesions. no chest pain, palpitations, or SOB. no abdominal pain, nausea, vomiting. Physical Exam General: nontoxic, NAD Mouth: moist mucosa Lungs: normal respiratory effort Cardio: regular rate, good distal perfusion Abdomen: nondistended Neurologic: Grossly normal Skin: No rashes or suspicious lesions Assessment/Plan BBSQ 5 total control. 1. Kidney stones (N20.0: Calculus of kidney) [...] for stone prevention. Pt willing to proceed. TODAY: Blood work looks good. 24hr urine looks good - volume slightly below goal (2150), 24hr oxalate slightly high (34), otherwise no major abnormalities. KUB shows persistent R renal calc (which is expected since it was found to be embedded/not accessible during procedure 05/26/24). No new stones. -Continue potassium citrate. Refills provided. -Decreased oxalate in diet. Provided printed material. -Increase fluids -KUB/RUDDY 1 yr for stone monitoring Ordered: E&M of Est. Patient Moderate 30-39 Min 62287 Urnls Dip Stick Auto w/o Microscopy POC 56030 2. Unspecified urethral stricture, female (N35.92: Unspecified urethral stricture, female) S/p Cysto/UD, R URS, R pyeloscopy, R stent placement 05/26/24 - Severe urethral stenosis, dilated to 32Fr. Atrophy noted on vaginal exam. Not on estrogen cream. Hx breast ca. See #3. Ordered: E&M of Est. Patient Moderate 30-39 Min 10964 3. Elevated tumor markers (R97.8: Other abnormal tumor markers) Pt and her are concerned that the calcification which was originally considered a stone (see #1), may actually be a renal tumor. Hx breast ca, her tumor markers came back elevated recently and so they are worried this may have been misdiagnosed. I was unable to view image myself today, only report. Will have PRW review CT image. I told pt if it's clearly a stone, we would let them know. If PRW has any concern, we will get a CT w con to evaluate further. If no further action needed, plan will be f/u 1 yr w stone monitoring imaging (see #1). Ordered: E&M of Est. Patient Moderate 30-39 Min 07163 4. Asymptomatic microscopic hematuria (R31.21: Asymptomatic microscopic hematuria) Will send today's urine for micro/cx since it shows large blood. See #3. Ordered: E&M of Est. Patient Moderate 30-39 Min 07131 Urinalysis with Micro Urine Culture Orders: potassium citrate, 20 mEq, 2 tab(s), Oral, BID for 30 day(s), 120 tab(s), Refill(s) 11, [facility]/pharmacy #[id number], 165, cm, 02/29/24 11:29:00 EDT, Height/Length Dosing, 58.5, kg, 06/07/24 15:33:00 EDT, Weight Dosing Follow-up With When Contact Information DIPTI TOVAR PA-C, URL [address] [place] [address] [facility] (1) Additional Instructions: pending results of imaging/testing, will call with next steps Patient Education Kidney Stones, Zgpp-my-Tcit Problem List/Past Medical History Ongoing Asymptomatic microscopic hematuria Breast cancer Dysuria Elevated tumor markers Gross hematuria Hydronephrosis with urinary obstruction due to ureteral calculus Kidney stones Lower abdominal pain Microscopic hematuria Unspecified urethral stricture, female Ureteral stone Vaginal atrophy Historical No qualifying data Procedure/Surgical History Cystoscopic removal of ureteric stent (06/07/2024), ESWL of kidney (2021), Cystoscopy (11/07/2019), Appendectomy, Breast, Tonsillectomy. Medications potassium CITRATE 10 mEq ER Tab, 20 mEq= 2 tab(s), Oral, BID, 11 refills Vitamin D, Oral, qWeek Aller (more content not included)... Normal [facility] Comment on above: Result Comment: Elec tronically Signed By: LA DEVINE, DIPTI Mohr.br\Date and Time Signed: 08/30/24 12:42 EST Ifrah 08-17-2024 CNPN Telephone (HEMASA) ALBERT ROBERTS ([id number]) 1960 F Date Time Provider Department 08/17/24 AUDRA ANDREWS HEMASA During your visit today, we recorded the following information about you: Audra Andrews RN 08/17/2024 11:16 AM Signed ----- Message from Liborio Sarabia MD sent at 08/17/2024 11:09 AM EST ----- Please inform the patient that her follow-up tumor marker is normal. I believe the lab obtained 07/14 was a false alarm. No need for further follow-up at this time. Call if symptoms develop. Audra Andrews RN 08/17/2024 11:17 AM Signed VM left for pt with BR message below. Encouraged to call with any questions, needs or concerns. Audra Andrews RN Allergies As of Date: 08/17/2024 Noted Allergy Reaction KEFLEX (CEPHALEXIN) 01/14/2017 16 - Unknown Date Reviewed: 07/14/2024 Reviewed by: Julianne Oneal MA - Fully Assessed Reason for Visit: Results [95] Prescriptions as of 08/17/2024 - KLOR-CON/EF 25 mEq disintegrating tablet - anastrozole (ARIMIDEX) 1 mg tablet TAKE 1 TABLET DAILY - CALCIUM CARBONATE/VITAMIN D3 (CALCIUM + D ORAL) Take by mouth. Problem List As Of Date 08/17/2024 Noted Resolved Breast CA (HCC) [C50.919] 09/02/2012 09/16/2018 Malignant neoplasm of upper-outer quadrant of r*09/16/2018 Osteopenia [M85.80] 09/18/2018 Encounter Status:Closed by ANDREWSAUDRA on 08/17/24 Normal [facility] Cancer Ag27-29 SerPl-aCncon 08-11-2024 Cancer Ag 27-29 Qn 27.7 [arb'U]/mL Normal <38.6 [facility] Comment on above: Order Comment: Speci men Type: BLOOD SPECIMEN Ordering Facility: [facility] Address: [address] [place] [address] Result Comment: The CA27.29 test was performed using the Siemens Datalogixaur XP chemiluminometric immunoassay method. Results obtained with different assay methods or kits cannot be used interchangeably. Performed By: #### 1 [id number] #### [facility] CLIA [id number] [address] [place], [place] [address]K [address] CNPMerle 07-15-2024 CNPN Telephone (HEMTSA) ALBERT ROBERTS ([id number]) 1960 F Date Time Provider Department 07/15/24 OLIVIA ONEAL HEMTSA During your visit today, we recorded the [...] results and Dr. Sarabia's recommendations. KALEIGH Michelle Tiffaney, RN 07/15/2024 1:50 PM Signed Discussed results [...] positive (HCC) [C50.411, Z17.0] Order(s):CA 27.29 BLOOD [[id number]] Order #: [id number] FUTURE Prescriptions as of 07/17/2024 - KLOR-CON/EF [...] Status:Closed by LIBORIO SARABIA on 07/17/24 Normal [facility] CBC W Auto Differential pane l (Bld)on 07-14-2024 Basophils (Bld) [#/Vol] 0.04 10*3/uL [facility] Basophils/100 WBC (Bld) 0.9 % [facility] Differential cell count method Nom (Bld) Auto [facility] Eosinophils (Bld) [#/Vol] 0.13 10*3/uL [facility] Eosinophils/100 WBC (Bld) 2.8 % [facility] Erythrocyte distribution width (RBC) [Ratio] 12.6 % 11.5 - 15.0 % [facility] Hematocrit (Bld) [Volume fraction] 42.0 % 36.0 - 46.0 % [facility] Hemoglobin (Bld) [Mass/Vol] 14.2 g/dL 11.5 - 15.5 g/dL [facility] Immature granulocytes (Bld) [#/Vol] [facility] Immature granulocytes/100 WBC (Bld) 0.2 % [facility] Lymphocytes (Bld) [#/Vol] 1.22 10*3/uL [facility] Lymphocytes/100 WBC (Bld) 26.6 % [facility] MCH (RBC) [Entitic mass] 30.9 pg 26.0 - 34.0 pg [facility] MCHC (RBC) [Mass/Vol] 33.8 g/dL 30.5 - 36.0 g/dL [facility] MCV (RBC) [Entitic vol] 91.5 fL 80.0 - 100.0 fL [facility] Monocytes (Bld) [#/Vol] 0.47 10*3/uL [facility] Monocytes/100 WBC (Bld) 10.3 % [facility] Neutrophils (Bld) [#/Vol] 2.71 10*3/uL [facility] Neutrophils/100 WBC (Bld) 59.2 % [facility] Nucleated RBC (Bld) [#/Vol] [facility] Nucleated RBC/100 WBC (Bld) [Ratio] 0.0 % /100 WBC [facility] Platelet mean volume (Bld) [Entitic vol] 10.6 fL 9.0 - 12.7 fL [facility] Platelets (Bld) [#/Vol] 220 10*3/uL [facility] RBC (Bld) [#/Vol] 4.59 10*6/uL 3.90 - 5.2 0 m/uL [facility] WBC (Bld) [#/Vol] 4.58 10*3/uL [facility] Basophils (Bld) [#/Vol] 0.04 10*3/uL Normal <0.11 [facility] Comment on above: Order Comment: Speci men Type: BLOOD SPECIMEN Ordering Facility: [facility] Address: [address] [place] [address] Performed By: #### 5 7021-8 #### [facility] CLIA [id number] [address] [place] [address] Basophils/100 WBC (Bld) 0.9 % Normal [facility] Comment on above: Order Comment: Speci men Type: BLOOD SPECIMEN Ordering Facility: [facility] Address: [address] [place] [address] Performed By: #### 5 7021-8 #### [facility] CLIA [id number] [address] [place] [address] Differential cell count method Nom (Bld) Auto Normal [facility] Comment on above: Order Comment: Speci men Type: BLOOD SPECIMEN Ordering Facility: [facility] Address: [address] [place] [address] Performed By: #### 5 7021-8 #### [facility] CLIA [id number] [address] [place] [address] Eosinophils (Bld) [#/Vol] 0.13 10*3/uL Normal <0.46 [facility] Comment on above: Order Comment: Speci men Type: BLOOD SPECIMEN Ordering Facility: [facility] Address: [address] [place] [address] Performed By: #### 5 7021-8 #### [facility] CLIA [id number] [address] [place] [address] Eosinophils/100 WBC (Bld) 2.8 % Normal [facility] Comment on above: Order Comment: Speci men Type: BLOOD SPECIMEN Ordering Facility: [facility] Address: [address] [place] [address] Performed By: #### 5 7021-8 #### [facility] CLIA [id number] [address] [place] [address] Erythrocyte distribution width (RBC) [Ratio] 12.6 % Normal 11.5-15.0 [facility] Comment on above: Order Comment: Speci men Type: BLOOD SPECIMEN Ordering Facility: [facility] Address: [address] [id number] Performed By: #### 5 7021-8 #### [facility] CLIA [id number] [address] [place] [address] Hematocrit (Bld) [Volume fraction] 42.0 % Normal 36.0-46.0 [facility] Comment on above: Order Comment: Speci men Type: BLOOD SPECIMEN Ordering Facility: [facility] Address: [address] [place] [address] Performed By: #### 5 7021-8 #### [facility] CLIA [id number] [address] [place] [address] 11544 Hemoglobin (Bld) [Mass/Vol] 14.2 g/dL Normal 11.5-15.5 [facility] Comment on above: Order Comment: Speci men Type: BLOOD SPECIMEN Ordering Facility: [facility] Address: [address] [place] [address] Performed By: #### 5 7021-8 #### [facility] CLIA [id number] [address] [place] [address] 59767 Immature granulocytes (Bld) [#/Vol] 10*3/uL Normal <0.10 [facility] Comment on above: Order Comment: Speci men Type: BLOOD SPECIMEN Ordering Facility: [facility] Address: [address] [place] [address] Performed By: #### 5 7021-8 #### [facility] CLIA [id number] [address] [place] [address] 71419 Immature granulocytes/100 WBC (Bld) 0.2 % Normal [facility] Comment on above: Order Comment: Speci men Type: BLOOD SPECIMEN Ordering Facility: [facility] Address: [address] [place] [address] Performed By: #### 5 7021-8 #### [facility] CLIA [id number] [address] [place] [address] 02736 Lymphocytes (Bld) [#/Vol] 1.22 10*3/uL Normal 1.00-4.00 [facility] Comment on above: Order Comment: Speci men Type: BLOOD SPECIMEN Ordering Facility: [facility] Address: [address] [place] [address] Performed By: #### 5 7021-8 #### [facility] CLIA [id number] [address] [place] [address] 54661 Lymphocytes/100 WBC (Bld) 26.6 % Normal [facility] Comment on above: Order Comment: Speci men Type: BLOOD SPECIMEN Ordering Facility: [facility] Address: [address] [place] [address] Performed By: #### 5 7021-8 #### [facility] CLIA [id number] [address] [place] [address] 81282 MCH (RBC) [Entitic mass] 30.9 pg Normal 26.0-34.0 [facility] Comment on above: Order Comment: Speci men Type: BLOOD SPECIMEN Ordering Facility: [facility] Address: [address] [place] [address] Performed By: #### 5 7021-8 #### [facility] CLIA [id number] [address] [place] [address] 36187 MCHC (RBC) [Mass/Vol] 33.8 g/dL Normal 30.5-36.0 [facility] Comment on above: Order Comment: Speci men Type: BLOOD SPECIMEN Ordering Facility: [facility] Address: [address] [place] [address] Performed By: #### 5 7021-8 #### [facility] CLIA [id number] [address] [place] [address] 26373 MCV (RBC) [Entitic vol] 91.5 fL Normal 80.0-100.0 [facility] Comment on above: Order Comment: Speci men Type: BLOOD SPECIMEN Ordering Facility: [facility] Address: [address] [place] [address] Performed By: #### 5 7021-8 #### [facility] CLIA [id number] [address] [place] [address] Monocytes (Bld) [#/Vol] 0.47 10*3/uL Normal <0.87 [facility] Comment on above: Order Comment: Speci men Type: BLOOD SPECIMEN Ordering Facility: [facility] Address: [address] [place] [address] Performed By: #### 5 7021-8 #### [facility] CLIA [id number] [address] [place] [address] 77897 Monocytes/100 WBC (Bld) 10.3 % Normal [facility] Comment on above: Order Comment: Speci men Type: BLOOD SPECIMEN Ordering Facility: [facility] Address: [address] [place] [address] Performed By: #### 5 7021-8 #### [facility] CLIA [id number] [address] [place] [address] 86641 Neutrophils (Bld) [#/Vol] 2.71 10*3/uL Normal 1.45-7.50 [facility] Comment on above: Order Comment: Speci men Type: BLOOD SPECIMEN Ordering Facility: [facility] Address: [address] [place] [address] Performed By: #### 5 7021-8 #### [facility] CLIA [id number] [address] [place] [address] 15822 Neutrophils/100 WBC (Bld) 59.2 % Normal [facility] Comment on above: Order Comment: Speci men Type: BLOOD SPECIMEN Ordering Facility: [facility] Address: [address] [place] [address] Performed By: #### 5 7021-8 #### [facility] CLIA [id number] [address] [place] [address] 93288 Nucleated RBC (Bld) [#/Vol] 10*3/uL Normal <0.01 [facility] Comment on above: Order Comment: Speci men Type: BLOOD SPECIMEN Ordering Facility: [facility] Address: [address] [place] [address] Performed By: #### 5 7021-8 #### [facility] CLIA [id number] [address] [place] [address] Nucleated RBC/100 WBC (Bld) [Ratio] 0.0 /100 WBC Normal [facility] Comment on above: Order Comment: Speci men Type: BLOOD SPECIMEN Ordering Facility: [facility] Address: [address] [place] [address] Performed By: #### 5 7021-8 #### [facility] CLIA [id number] [address] [place] [address] 04399 Platelet mean volume (Bld) [Entitic vol] 10.6 fL Normal 9.0-12.7 [facility] Comment on above: Order Comment: Speci men Type: BLOOD SPECIMEN Ordering Facility: [facility] Address: [address] [place] [address] Performed By: #### 5 7021-8 #### [facility] CLIA [id number] [address] [place] [address] 53515 Platelets (Bld) [#/Vol] 220 10*3/uL Normal 150-400 [facility] Comment on above: Order Comment: Speci men Type: BLOOD SPECIMEN Ordering Facility: [facility] Address: [address] [place] [address] Performed By: #### 5 7021-8 #### [facility] CLIA [id number] [address] [place] [address] 46215 RBC (Bld) [#/Vol] 4.59 10*6/uL Normal 3.90-5.20 [facility] Comment on above: Order Comment: Speci men Type: BLOOD SPECIMEN Ordering Facility: [facility] Address: [address] [place] [address] Performed By: #### 5 7021-8 #### [facility] CLIA [id number] [address] [place] [address] 72988 WBC (Bld) [#/Vol] 4.58 10*3/uL Normal 3.70-11.00 [facility] Comment on above: Order Comment: Speci men Type: BLOOD SPECIMEN Ordering Facility: [facility] Address: [address] [place] [address] Performed By: #### 5 7021-8 #### [facility] CLIA [id number] [address] [place] [address] 32290 CNOVSPon 07-14-2024 CNOVSP Visit (SP) Office ([place]) LOISALBERT MORENO ([id number]) 1960 F Date Time Provider Department 07/14/24 3:40 PM LIBORIO SARABIA During your visit today, we recorded the following information about you: Temperature Pulse Respiration Blood pressure 96.8 degrees 66/minute 16/minute 151/87 Weight Height 58.9 kg 1.651 Liborio Orr MD 07/14/2024 9:26 PM Signed PATIENT NAME: [...] Diagnosis Date Breast cancer (HCC) Right; ER+ IA- PAST SURGICAL HISTORY: PAST SURGICAL HISTORY Procedure [...] 197 RADIOLOGY/OTHER STUDIES: 05/28/2024 Bilateral screening mammogram ([facility]) No mammographic evidence of malignancy.. Routine follow-up in 1 year recommended. 05/28/2024 Bone density DEXA ([facility]) Osteopenia. Max T score -2.4 left femoral neck, left femur, and right femur. ASSESSMENT/PLAN: 1. 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 Normal [facility] Cancer Ag27-29 SerPl-aCncon 07-14-2024 Cancer Ag 27-29 Qn 48.5 [arb'U]/mL High <38.6 [facility] Comment on above: Order Comment: Speci men Type: BLOOD SPECIMEN Ordering Facility: [facility] Address: [address] [place] [address] Result Comment: The CA27.29 test was performed using the Siemens Datalogixaur XP chemiluminometric immunoassay method. Results obtained with different assay methods or kits cannot be used interchangeably. Performed By: #### 1 7842-6 #### [facility] CLIA [id number] [address] [place] [address] [place] Comprehensive metabolic 2000 panelOrdered By: Lisa Mayes on 07-14-2024 Albumin [Mass/Vol] 4.6 g/dL 3.9 - 4.9 g/dL [facility] ALP [Catalytic activity/Vol] 87 U/L 34 - 123 U/L [facility] ALT [Catalytic activity/Vol] 14 U/L 7 - 38 U/L [facility] Anion gap [Moles/Vol] 11 mmol/L 8 - 15 mmol/L [facility] AST [Catalytic activity/Vol] 23 U/L 13 - 35 U/L [facility] Bilirubin [Mass/Vol] 0.4 mg/dL 0.2 - 1 .3 mg/dL [facility] Calcium [Mass/Vol] 9.7 mg/dL 8.5 - 10. 2 mg/dL [facility] Chloride [Moles/Vol] 102 mmol/L 98 - 10 7 mmol/L [facility] CO2 [Moles/Vol] 27 mmol/L 22 - 30 mmol/L [facility] Creatinine [Mass/Vol] 0.95 mg/dL 0.58 - 0.96 mg/dL [facility] GFR/1.73 sq M.predicted among non-blacks MDRD (S/P/Bld) [Vol rate/Area] 67 mL/min/{1.73_m2} - PINF [facility] Comment on above: Estimated Glomerular Filtration Rate [...] [Mass/Vol] 97 mg/dL 74 - 99 mg/dL [facility] Comment on above: The [place] Diabete s Association (ADA) provides guidance for [...] Standards of Medical Care in Diabetes 2016, [place] Diabetes Association. Diabetes Care. 2016.39(Suppl 1). Interpretation and review of laboratory results Normal [facility] Potassium [Moles/Vol] 4.2 mmol/L 3.7 - 5.1 mmol/L [facility] Protein [Mass/Vol] 6.6 g/dL 6.3 - 8.0 g/dL [facility] Sodium [Moles/Vol] 140 mmol/L 136 - 144 mmol/L [facility] Urea nitrogen [Mass/Vol] 20 mg/dL 7 - 21 mg/dL [facility] Comprehensive metabolic 2000 panelon 07-14-2024 Albumin [Mass/Vol] 4.6 g/dL Normal 3.9-4.9 [facility] Comment on above: Order Comment: Dimitri curz Type: BLOOD SPECIMEN Ordering Facility: [facility] Address: [address] [place] [address] Performed By: #### 2 4323-8 #### [facility] CLIA [id number] [address] [place] [address] 71658 ALP [Catalytic activity/Vol] 87 U/L Normal 34-123 [facility] Comment on above: Order Comment: Dimitri cruz Type: BLOOD SPECIMEN Ordering Facility: [facility] Address: [address] [place] [address] Performed By: #### 2 4323-8 #### [facility] CLIA [id number] [address] [place] [address] 87405 ALT [Catalytic activity/Vol] 14 U/L Normal 7-38 [facility] Comment on above: Order Comment: Igori anthony Type: BLOOD SPECIMEN Ordering Facility: [facility] Address: [facility] [place] [address] Performed By: #### 2 4323-8 #### [facility] CLIA [id number] [address] [place] [address] 05403 Anion gap [Moles/Vol] 11 mmol/L Normal 8-15 [facility] Comment on above: Order Comment: Speci men Type: BLOOD SPECIMEN Ordering Facility: [facility] Address: [address] [address] Performed By: #### 2 4323-8 #### [facility] CLIA [id number] [address] [place] [address] 92752 AST [Catalytic activity/Vol] 23 U/L Normal 13-35 [facility] Comment on above: Order Comment: Speci men Type: BLOOD SPECIMEN Ordering Facility: [facility] Address: [address] [address] Performed By: #### 2 4323-8 #### [facility] CLIA [id number] [address] [place] [address] 08224 Bilirubin [Mass/Vol] 0.4 mg/dL Normal 0.2-1.3 [facility] Comment on above: Order Comment: Speci men Type: BLOOD SPECIMEN Ordering Facility: [facility] Address: [address] [address] Performed By: #### 2 4323-8 #### [facility] CLIA [id number] [address] [place] [address] 32719 Calcium [Mass/Vol] 9.7 mg/dL Normal 8.5-10.2 [facility] Comment on above: Order Comment: Speci men Type: BLOOD SPECIMEN Ordering Facility: [facility] Address: [address] [place] [address] Performed By: #### 2 4323-8 #### [facility] CLIA [id number] [address] [place] [address] 27218 Chloride [Moles/Vol] 102 mmol/L Normal 98-107 [facility] Comment on above: Order Comment: Speci men Type: BLOOD SPECIMEN Ordering Facility: [facility] Address: [address] [place] [address] Performed By: #### 2 4323-8 #### [facility] CLIA [id number] [address] [place] [address] CO2 [Moles/Vol] 27 mmol/L Normal 22-30 [facility] Comment on above: Order Comment: Speci men Type: BLOOD SPECIMEN Ordering Facility: [facility] Address: [address] [place] [address] Performed By: #### 2 4323-8 #### [facility] CLIA [id number] [address] [place] [address] 28387 Creatinine [Mass/Vol] 0.95 mg/dL Normal 0.58-0.96 [facility] Comment on above: Order Comment: Speci men Type: BLOOD SPECIMEN Ordering Facility: [facility] Address: [address] [place] [address] Performed By: #### 2 4323-8 #### [facility] CLIA [id number] [address] [place] [address] 82076 Creatinine and Glomerular filtration rate.predicted panel (S/P/Bld) 67 mL/min/1.73m??? Normal >=60 [facility] Comment on above: Order Comment: Speci men Type: BLOOD SPECIMEN Ordering Facility: [facility] Address: [address] [place] [address] Result Comment: Judy mated Glomerular Filtration Rate [...] GFR. Performed By: #### 2 4323-8 #### [facility] CLIA [id number] [address] [place] [address] 19344 Glucose [Mass/Vol] 97 mg/dL Normal 74-99 [facility] Comment on above: Order Comment: Speci men Type: BLOOD SPECIMEN Ordering Facility: [facility] Address: [address] [place] [address] Result Comment: The [place] Diabetes Association (ADA) provides guidance for cutoff [...] Standards of Medical Care in Diabetes 2016, [place] Diabetes Association. Diabetes Care. 2016.39(Suppl 1). Performed By: #### 2 4323-8 #### [facility] CLIA [id number] [address] [place] [address] Potassium [Moles/Vol] 4.2 mmol/L Normal 3.7-5.1 [facility] Comment on above: Order Comment: Speci men Type: BLOOD SPECIMEN Ordering Facility: [facility] Address: [address] [place] [address] Performed By: #### 2 4323-8 #### [facility] CLIA [id number] [address] [place] [address] 94031 Protein [Mass/Vol] 6.6 g/dL Normal 6.3-8.0 [facility] Comment on above: Order Comment: Speci men Type: BLOOD SPECIMEN Ordering Facility: [facility] Address: [address] [place] [address] Performed By: #### 2 4323-8 #### [facility] CLIA [id number] [address] [place] [address] 06922 Sodium [Moles/Vol] 140 mmol/L Normal 136-144 [facility] Comment on above: Order Comment: Speci men Type: BLOOD SPECIMEN Ordering Facility: [facility] Address: [address] [address] Performed By: #### 2 4323-8 #### [facility] CLIA [id number] [address] [place] [address] 89288 Urea nitrogen [Mass/Vol] 20 mg/dL Normal 7-21 [facility] Comment on above: Order Comment: Speci men Type: BLOOD SPECIMEN Ordering Facility: [facility] Address: [place] [address] Performed By: #### 2 4323-8 #### [facility] CLIA [id number] [address] [place] [address] Ambulatory Visit Summaryon 1 Ambulatory Visit Summary [...] DIPTI TOVAR PA-C Where: [facility] [address] [place] [address]- Thursday 8:45 AM EDT With: Roland VELEZ MD Where: [facility] [address] [place] [address]- You Need to Schedule the Following Appointments Follow Up with Roland VELEZ MD, URL When: Where: [facility] [address] [place] [address]- [phone] Medications What How Much When Instructions Unchanged [...] may eat and drink normally. ? Take fkyl-kyj-gdgrblk and prescription medicines only as told by your health care provider. ? Let your health care provider know about any medicines that you are taking, including hole-udt-kiedesm medicines, vitamins, herbs, and supplements. ? Choose [...] end o (more content not included)... Normal [facility] Urology Office/Clinic Noteon 06-07-2024 Urology Office/Clinic Note [...] placement 05/26/24. Follow-up With When Contact Information PATRICIA STRICKLAND, Roland Barksdale, URL [facility] [address], [place] [phone] Additional Instructions: 4 mos w/ KUB and metabolic workup Patient Education 24-Hour Urine Collection Kidney Stones, Fomq-xj-Tjtb I, Nella Carrillo, personally scribed for Dr. Velez on 06/07/2024 15:59:39. . Documentation recorded by the scribe, Nella [...] - De (more content not included)... 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 05-30-2024 MAMM SCREENING BILATERAL W CAD MAMM SCREENING BILATERAL W CAD ALBERT ROBERTS 1960 [id number] EXAM: MAMM SCREENING BILATERAL W CAD, 05/28/2024 9:30 AM CLINICAL INDICATIONS: Screening, Malignant neoplasm of upper-outer quadrant of right breast in female, estrogen receptor positive (CMS-HCC); Screening mammogram for breast cancer COMPARISON: 05/04/2023 [...] AM 2 c MAMM 1 YR Normal [facility] DEXA SCAN CENTRAL SKELETALon 05-29-2024 [...] Arellano MD on 05/29/2024 3:48 PM Normal [facility] Ifrah 05-20-2024 CNPN Telephone (HEMASA) ALBERT ROBERTS ([id number]) 1960 F Date Time Provider Department 05/20/24 AUDRA ANDREWS During your visit today, we recorded the following information about you: Audra Andrews RN 05/20/2024 10:30 AM Signed [facility] called for DX code to be added to screening mammogram order. Z12.31 added and faxed to requested # [phone]. Pt is scheduled next week. 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0-15.0 [facility] Hematocrit Auto (Bld) [Volum e fraction]on 04-13-2024 Hematocrit (Bld) [Volume fraction] 41.0 % 36.0-48.0 [facility] Hemoglobin [Mass/volume] in Bloodon 04-13-2024 Hemoglobin (Bld) [Mass/Vol] 13.6 g/dL 12.0-16.0 [facility] Chip 04-13-2024 L Specimen: [id number] Received: 04/18/24 Status: SOUT Reariel Num: [id number] Spec Type: Impression Subm Dr: Juma Buckner DO Tissues: PATHPER Procedures: PATHREVIEW Age/ Patient Sex Location Account Attending Physician Albert Roberts 64/F [place] [id number] Juma Buckner DO SPEC NUM: [id number] RECD: 04/18/24 STATUS: SOUT REQ NUM: [id number] GILA: 04/13/[address]: Juma Buckner DO ENTERED: 04/18/[address] [facility] [address]: SPEC TYPE: Impression DEPT: MALENA Alvarez ENTERED BY: [id number] RECV BY: [id number] ORDERED: PATHREVIEW ORDERED: PATHREVIEW Pathologist Review Abnormal [...] antineoplastics. Continuous clinical correlations are suggested CPT: 40159 -------- -------- Specimen: [id number] Received: 04/18/24 Status: GEMA Oneill Num: [id number] Spec Type: Impression Subm Dr: Juma Buckner DO Tissues: PATHPER Procedures: PATHREVIEW -------- Patient: Albert Roberts [id number] (Continued) -------- Signed (signature on file) Zehra Braga MD 04/18/242006 Normal [facility] - Hematology and Cell countson 04-13-2024 ESR (Bld) [Velocity] 6 mm/h <=30 [facility] Immature granulocytes/100 WBC (Bld) 0.2 % 0.0-0.5 [facility] Leukocytes [#/volume] correc noe for nucleated erythrocytes in Blood by Automated counon 04-13-2024 WBC corrected for nucl RBC Auto (Bld) [#/Vol] 5.7 10 3/uL 4.0-11.0 [facility] Lymphocytes Auto (Bld) [#/Vo l]on 04-13-2024 Lymphocytes (Bld) [#/Vol] 1.1 10 3/uL Low 1.2-3.8 [facility] Lymphocytes/100 WBC Auto (Bl d)on 04-13-2024 Lymphocytes/100 WBC (Bld) 18.8 % Low 20.5-60.0 [facility] MCH Auto (RBC) [Entitic mass ]on 04-13-2024 MCH (RBC) [Entitic mass] 31.3 pg 26.7-34.0 [facility] MCHC Auto (RBC) [Mass/Vol]on 04-13-2024 MCHC (RBC) [Mass/Vol] 33.2 g/dL 29.9-35.2 [facility] MCV Auto (RBC) [Entitic vol] on 04-13-2024 MCV (RBC) [Entitic vol] 94.5 fL 81.0-99.0 [facility] Monocytes Auto (Bld) [#/Vol] on 04-13-2024 Monocytes (Bld) [#/Vol] 0.3 10 3/uL 0.3-0.8 [facility] Monocytes/100 WBC Auto (Bld) on 04-13-2024 Monocytes/100 WBC (Bld) 5.4 % 1.7-12.0 [facility] Neutrophils Auto (Bld) [#/Vo l]on 04-13-2024 Neutrophils (Bld) [#/Vol] 4.2 10 3/uL 1.4-6.5 [facility] Neutrophils/100 WBC Auto (Bl d)on 04-13-2024 Neutrophils/100 WBC (Bld) 73.7 % 43.0-75.0 [facility] No Panel Informationon 04-13 C-Reactive Protein, Quantitative <0.50 mg/dL <=0.50 [facility] Eosinophils # (Auto) 0.1 10 3/uL 0.0-0.7 [facility] Immature Granulocyte # (Auto) 0.01 10 3/uL 0.00-0.03 [facility] Platelet mean volume Auto (B ld) [Entitic vol]on 04-13-2024 Platelet mean volume (Bld) [Entitic vol] 11.2 fL 9.5-13.5 [facility] Platelets Auto (Bld) [#/Vol] on 04-13-2024 Platelets (Bld) [#/Vol] 199 10 3/uL 150-450 [facility] RBC Auto (Bld) [#/Vol]on RBC (Bld) [#/Vol] 4.34 10 6/uL 4.20-5.40 [facility] Serum or plasma free cefurox haylee measurement (mass/volume)on 04-13-2024 Cefuroxime free [Mass/Vol] Negative Negative [facility] Comment on above: Performed at: [address] [id number] Director: Dima Sosa PhD, Phone: [phone] Activated partial thrombopla stin time (aPTT) in platelet poor plasma by coagulation aon 04-04-2024 aPTT Coag (PPP) [Time] 29.7 s 22.3-36.2 [facility] Basophils Auto (Bld) [#/Vol] on 04-04-2024 Basophils (Bld) [#/Vol] 0.0 10 3/uL 0.0-0.1 [facility] Basophils/100 WBC Auto (Bld) on 04-04-2024 Basophils/100 WBC (Bld) 1.5 % 0.2-2.0 [facility] Eosinophils/100 WBC Auto (Bl d)on 04-04-2024 Eosinophils/100 WBC (Bld) 3.0 % 0.9-7.0 [facility] Erythrocyte distribution wid th Auto (RBC) [Ratio]on 04-04-2024 Erythrocyte distribution width (RBC) [Ratio] 12.0 % 11.0-15.0 [facility] Estimated glomerular filtrat ion rate (GFR) non- [place]on 04-04-2024 GFR/1.73 sq M.predicted among non-blacks MDRD (S/P/Bld) [Vol rate/Area] 58 mL/min/{1.73_m2} Low >=60 [facility] Hematocrit Auto (Bld) [Volum e fraction]on 04-04-2024 Hematocrit (Bld) [Volume fraction] 42.8 % 36.0-48.0 [facility] Hemoglobin [Mass/volume] in Bloodon 04-04-2024 Hemoglobin (Bld) [Mass/Vol] 14.2 g/dL 12.0-16.0 [facility] INR in Platelet poor plasma by Coagulation assayon 04-04-2024 INR Coag (PPP) [Relative time] 1.13 {INR} [facility] Comment on above: DESIRED INR:2.0-3.0 CONDITIONS NOT LISTED BELOW2.5-3.5 FOR PROSTHETIC HEART VALVE REPLACEMENT2.5-3.5 RECURRENT THROMBOSIS Laboratory - Chemistry and C hemistry - challengeon 04-04-2024 Calcium [Mass/Vol] 8.9 mg/dL 8.5-10.1 [facility] Chloride [Moles/Vol] 104 mmol/L 98-107 [facility] CO2 [Moles/Vol] 27.6 mmol/L 21.0-32.0 [facility] Creatinine [Mass/Vol] 0.97 mg/dL 0.55-1.02 [facility] GFR/1.73 sq M.predicted MDRD (S/P/Bld) [Vol rate/Area] mL/min/{1.73_m2} >=60 [facility] Glucose [Mass/Vol] 92 mg/dL 74-106 [facility] Potassium [Moles/Vol] 4.0 mmol/L 3.5-5.1 [facility] Sodium [Moles/Vol] 140 mmol/L 136-145 [facility] Urea nitrogen [Mass/Vol] 25.0 mg/dL High 7.0-18.0 [facility] Urea nitrogen/Creatinine [Mass ratio] 25.8 mg/mg [facility] Laboratory - Hematology and Cell countson 04-04-2024 Immature granulocytes/100 WBC (Bld) 0.4 % 0.0-0.5 [facility] Leukocytes [#/volume] correc noe for nucleated erythrocytes in Blood by Automated counon 04-04-2024 WBC corrected for nucl RBC Auto (Bld) [#/Vol] 2.7 10 3/uL Low 4.0-11.0 [facility] Lymphocytes Auto (Bld) [#/Vo l]on 04-04-2024 Lymphocytes (Bld) [#/Vol] 0.9 10 3/uL Low 1.2-3.8 [facility] Lymphocytes/100 WBC Auto (Bl d)on 04-04-2024 Lymphocytes/100 WBC (Bld) 33.3 % 20.5-60.0 [facility] MCH Auto (RBC) [Entitic mass ]on 04-04-2024 MCH (RBC) [Entitic mass] 31.0 pg 26.7-34.0 [facility] MCHC Auto (RBC) [Mass/Vol]on 04-04-2024 MCHC (RBC) [Mass/Vol] 33.2 g/dL 29.9-35.2 [facility] MCV Auto (RBC) [Entitic vol] on 04-04-2024 MCV (RBC) [Entitic vol] 93.4 fL 81.0-99.0 [facility] Monocytes Auto (Bld) [#/Vol] on 04-04-2024 Monocytes (Bld) [#/Vol] 0.4 10 3/uL 0.3-0.8 [facility] Monocytes/100 WBC Auto (Bld) on 04-04-2024 Monocytes/100 WBC (Bld) 15.0 % High 1.7-12.0 [facility] Neutrophils Auto (Bld) [#/Vo l]on 04-04-2024 Neutrophils (Bld) [#/Vol] 1.3 10 3/uL Low 1.4-6.5 [facility] Neutrophils/100 WBC Auto (Bl d)on 04-04-2024 Neutrophils/100 WBC (Bld) 46.8 % 43.0-75.0 [facility] No Panel Informationon 04-04 Eosinophils # (Auto) 0.1 10 3/uL 0.0-0.7 [facility] Immature Granulocyte # (Auto) 0.01 10 3/uL 0.00-0.03 [facility] Platelet mean volume Auto (B ld) [Entitic vol]on 04-04-2024 Platelet mean volume (Bld) [Entitic vol] 10.9 fL 9.5-13.5 [facility] Platelets Auto (Bld) [#/Vol] on 04-04-2024 Platelets (Bld) [#/Vol] 198 10 3/uL 150-450 [facility] Prothrombin time (PT)on 03-08 PT Coag (PPP) [Time] 11.8 s High 9.0-11.6 [facility] RBC Auto (Bld) [#/Vol]on RBC (Bld) [#/Vol] 4.58 10 6/uL 4.20-5.40 [facility] Serum or plasma anion gap de terminationon 04-04-2024 Anion gap [Moles/Vol] 12.4 mmol/L [facility] Ambulatory Visit Summaryon 0 02-29-2024 Ambulatory Visit [...] PATRICIA Where: [facility] [address], [place] [address] [phone] Medications What How Much When Instructions New potassium citrate (potassium CITRATE 10 mEq ER Tab) 2 Tablets By Mouth 2 times a day Duration: 30 Days Refills: 11 Pickup at [facility] #[id number] Unchanged ergocalciferol (Vitamin D) By Mouth Every week Contact prescribing physician if questions or concerns Unchanged Non-Formulary Medication (Calcium) By Mouth Every day Contact prescribing physician if questions or concerns Pharmacy Information [facility] #[id number]: [id number], [place] [phone] What How Much When Comments Stop Taking [...] ? Eat (more content not included)... Normal [facility] Patient Educationon 02-29-20 Patient Education Nephrology [...] Spinach (cooked), rhubarb, beets, sweet potatoes, and [place]guill[place] chard. ? Peanuts. ? Potato chips, swedish fries, and baked potatoes with skin on. ? Nuts and nut products. ? Chocolate. ? If you regularly take a diuretic medicine, make sure to eat at least 1 or 2 servings of fruits or vegetables that are high in potassium each day. These include: ? Avocado. ? Banana. ? [place], prune, carrot, or tomato juice. ? Baked [...] fish oil, or vitamin B6. ? Take ndjs-ghj-ewzedyw and prescription medicines only as told by your health care provider. These include supplements. What foods sh (more content not included)... Normal [facility] Urology Office/Clinic Noteon 02-29-2024 Urology Office/Clinic Note Chief Complaint kidney stones and asymptomatic microhematuria HPI Staff 1 yr with PATRICIA @ [facility] 02/24/24 due to kidney stones. Previous DX: asymptomatic microscopic hematuria, dysuria, gross hematuria, hydronephrosis with urinary obstruction due to ureteral calculus, kidney stones, lower abdominal pain, microscopic hematuria, ureteral stone. S/P ESWL 04/11/21. Started Effer-K 25mEq BID at prior OV. Electrolyte panel was not done. Could not find any pertaining labs from PCP [place], [facility] [place] [facility] either. Dysuria: no Incomplete bladder emptying: no [...] only been taking this once per day. Hiram bloated when she took bid. Advised pt [...] [facility] [address], [place] [address]- [phone] Additional Instructions: 1 yr w/ KUB Patient [...] Use:. Household (more content not included)... Normal [facility] Comment on above: Result Comment: Elec tronically Signed By: Roland VELEZ MD\.br\Date and Time Signed: 02/29/24 12:00 EDT\.br\Electronically Co-Signed By: Nella Carrillo\.br\Date and Time Co-Signed: 02/29/24 11:56 EDT RAD - MISCon 02-25-2024 RAD - MISC [id number] Normal [facility] OXALATE 24HR URINEon 022 Oxalates, Urine 14 mg/L Normal Undefined [facility] Comment on above: Performed By: #### U NICHOLE 24 #### [facility] [address] [address] [address] Lizzette Braga Oxalates, Urine 24hr 28 mg/24 hr Normal 4-31 [facility] Comment on above: Performed By: #### U NICHOLE 24 #### [facility] [address] [place] [address] Dr. Lizzette Braga CITRATE URINE 24HRon 04-03- 022 Citric Acid, U, 24hr 265 mg/24 hr Critically low 320-1240 [facility] Comment on above: Result Comment: This test was developed and its performance characteristics determined by [employer]. It has not been cleared or approved by the Food and Drug Administration. Performed By: #### U NICHOLE 24 #### [facility] [address] [address] [address] Lizzette Braga Citric Acid, Urine 131 mg/L Normal Undefined [facility] Comment on above: Performed By: #### U NICHOLE 24 #### [facility] [address] [place] [address] Dr. Lizzette Braga MAGNESIUM 24HR URINEon 04-03 Magnesium 24hr Urine 68.9 mg/24 hr Normal 12.0-293.0 [facility] Comment on above: Performed By: #### U NICHOLE 24 #### [facility] [address] [place] [address] Dr. Lizzette Braga Magnesium UR 3.4 mg/dL Normal Not Estab. [facility] Comment on above: Performed By: #### U NICHOLE 24 #### [facility] [address] [address] [address] Lizzette Braga PHOSPHORUS 24HR URINEon 03-08 Phosphorus, Urine 21.6 mg/dL Normal Not Estab. [facility] Comment on above: Performed By: #### U NICHOLE 24 #### [facility] [address] [place], [place] [address] Dr. Lizzette Braga Phosphorus, Urine 24hr 437 mg/24 hr Normal 261-1078 [facility] Comment on above: Performed By: #### U NICHOLE 24 #### [facility] [address] [place] [address] Dr. Lizzette Braga URIC ACID 24 HR URINEon 03-08 Uric Acid, Urine 19.0 mg/dL Normal Not Estab. The [facility] Comment on above: Performed By: #### U NICHOLE 24 #### [facility] [address] [place] [address] Dr. Lizzette Braga Uric Acid, Urine 24hr 384.8 mg/24 hr Normal 142.3-713. 2 [facility] Comment on above: Performed By: #### U NICHOLE 24 #### [facility] [address] [address] [address] Lizzette Braga CALCIUM 24 HR URINEon 2021 CALC, 24 HR UR 141.8 mg/24 hr Normal 100.0-300.0 [facility] Comment on above: Performed By: #### U NICHOLE 24 #### [facility] [address] [place] [address] Dr. Lizzette Braga UR CALCIUM 7.0 mg/dL Normal 5.1-21.0 [facility] Comment on above: Performed By: #### U NICHOLE 24 #### [facility] [address] [place] [address] Dr. Lizzette Braga CREA 24 HR URINEon 2 CREA, 24 HR UR 896.06 mg/24 hr Normal 800.00-1,8 00. 00 [facility] Comment on above: Performed By: #### U NICHOLE 24 #### [facility] [address] [place] [address] Dr. Lizzette Braga URINE CREAT 44.25 mg/dL Normal 20.00-300.00 [facility] Comment on above: Performed By: #### U NICHOLE 24 #### [facility] [address] [place] [address] Dr. Lizzette Braga PTH INTACTon 04-01-2022 PTH, Intact 36 pg/mL Normal 15-[address] [facility] Comment on above: Performed By: #### U NICHOLE 24 #### [facility] [address] [place] [address] Dr. Lizzette Braga SODIUM 24 HR URINEon 022 NA, 24 HR UR 99 mmol/24 hr Normal 40-220 [facility] Comment on above: Performed By: #### U NICHOLE 24 #### [facility] [address] [address] [address] Lizzette Braga Sodium (U) [Moles/Vol] 49 mmol/L Normal 30-90 [facility] Comment on above: Performed By: #### U NICHOLE 24 #### [facility] [address] [address] [address] Lizzette Braga UR TOT VOL 2025 ml/24 HR Normal [facility] Comment on above: Performed By: #### U NICHOLE 24 #### [facility] [address] [address] [address] Lizzette Braga BUNon 03-31-2022 Urea nitrogen [Mass/Vol] 18.0 mg/dL Normal 7.0-18.0 [facility] Comment on above: Performed By: #### C O2, CA, URIC, NA, K, CREA, BUN, CL #### [facility] [address] [place] [address] Dr. Lizzette Braga CALCIUMon 03-31-2022 Calcium [Mass/Vol] 9.0 mg/dL Normal 8.5-10.1 [facility] Comment on above: Performed By: #### U NICHOLE 24 #### [facility] [address] [address] [address] Lizzette Braga CHLORIDEon 03-31-2022 Chloride [Moles/Vol] 105 mmol/L Normal 98-[address] [facility] Comment on above: Performed By: #### C O2, CA, URIC, NA, K, CREA, BUN, CL #### [facility] [address] [place] [address] Dr. Lizzette Braga CO2on 03-31-2022 CO2 [Moles/Vol] 27.7 mmol/L Normal 21.0-32.0 [facility] Comment on above: Performed By: #### C O2, CA, URIC, NA, K, CREA, BUN, CL #### [facility] [address] [place] [address] Dr. Lizzette Braga CREATININEon 03-31-2022 Creatinine [Mass/Vol] 0.96 mg/dL Normal 0.55-1.02 [facility] Comment on above: Performed By: #### C O2, CA, URIC, NA, K, CREA, BUN, CL #### [facility] [address] [place] [address] Dr. Lizzette Braga EGFR-AF ANGUILLAN >60 Normal >=60 [facility] Comment on above: Performed By: #### C O2, CA, URIC, NA, K, CREA, BUN, CL #### [facility] [address] [place] [address] Dr. Lizzette Braga EGFR-NON AF ANGUILLAN 59 mL/min/1.73m2 Critically low >=60 [facility] Comment on above: Performed By: #### C O2, CA, URIC, NA, K, CREA, BUN, CL #### [facility] [address] [place] [address] Dr. Lizzette Braga NAon 03-31-2022 Sodium [Moles/Vol] 141 mmol/L Normal 136-145 [facility] Comment on above: Performed By: #### C O2, CA, URIC, NA, K, CREA, BUN, CL #### [facility] [address] [place] [address] Dr. Lizzette Braga POTASSIUMon 03-31-2022 Potassium [Moles/Vol] 4.1 mmol/L Normal 3.5-5.1 [facility] Comment on above: Performed By: #### C O2, CA, URIC, NA, K, CREA, BUN, CL #### [facility] [address] [place] [address] Dr. Lizzette Braga URIC ACID SERUMon 03-31-2022 Urate [Mass/Vol] 3.0 mg/dL Normal 2.6-6.0 [facility] Comment on above: Performed By: #### C O2, CA, URIC, NA, K, CREA, BUN, CL #### [facility] [address] [place] [address] Dr. Lizzette Braga XR KUB 1 VIEWon [...] by: ISRRAEL COOPER Date: 2022-02-28 06:17 Normal [facility] CALCULI, URINARYon 1 2,8 Dihydroxyadenine Normal [facility] Comment on above: Performed By: #### U NICHOLE 24 #### [facility] [address] [place] [address] Dr. Lizzette Braga Ammonium Acid Urate Normal [facility] Comment on above: Performed By: #### U NICHOLE 24 #### [facility] [address] [place] [address] Dr. Lizzette Braga Bilirubin Ql (U) Normal [facility] Comment on above: Performed By: #### U NICHOLE 24 #### [facility] [address] [place] [address] Dr. Lizzette Braga Ca Oxalate Dihydrate 20 % Normal [facility] Comment on above: Performed By: #### U NICHOLE 24 #### [facility] [address] [place] [address] Dr. Lizzette Braga CaHPO4 (Brushite) Normal [facility] Comment on above: Performed By: #### U NICHOLE 24 #### [facility] [address] [place] [address] Dr. Lizzette Braga Calcium Bilirubinate Normal [facility] Comment on above: Performed By: #### U NICHOLE 24 #### [facility] [address] [place] [address] Dr. Lizzette Braga Calcium Carbonate Normal [facility] Comment on above: Performed By: #### U NICHOLE 24 #### [facility] [address] [place] [address] Dr. Lizzette Braga Calcium Oxalate Monohydrate 80 % Normal [facility] Comment on above: Performed By: #### U NICHOLE 24 #### [facility] [address] [address] [address] Lizzette Braga Calcium Palmitate Normal [facility] Comment on above: Performed By: #### U NICHOLE 24 #### [facility] [address] [address] [address] Lizzette Braga Calcium Phosphate Normal [facility] Comment on above: Performed By: #### U NICHOLE 24 #### [facility] [address] [address] [address] Lizzette Braga Calcium Stearate [facility] Comment on above: Performed By: #### U NICHOLE 24 #### [facility] [address] [address] [address] Lizzette Braga Carbonate Apatite Normal [facility] Comment on above: Performed By: #### U NICHOLE 24 #### [facility] [address] [place] [address] Dr. Lizzette Braga Cellular Material Normal [facility] Comment on above: Performed By: #### U NICHOLE 24 #### [facility] [address] [place] [address] Dr. Lizzette Braga Cholesterol [facility] Comment on above: Performed By: #### U NICHOLE 24 #### [facility] [address] [address] [address] Lizzette Braga Color (U) Brown Normal [facility] Comment on above: Performed By: #### U NICHOLE 24 #### [facility] [address] [address] [address] Lizzette Braga Comment Normal [facility] Comment on above: Performed By: #### U NICHOLE 24 #### [facility] [address] [place] [address] Dr. Lizzette Braga Comment: Comment Normal [facility] Comment on above: Result Comment: Llye carias questions regarding Calculi Analysis contact [facility] at: [phone]. Performed By: #### U NICHOLE 24 #### [facility] [address] [place] [address] Dr. Lizzette Braga Composition Comment [facility] Comment on above: Result Comment: Perc entage (Represents the % composition) Performed By: #### U NICHOLE 24 #### [facility] [address] [address] [address] Lizzette Braga Cystine [facility] Comment on above: Performed By: #### U NICHOLE 24 #### [facility] [address] [place] [address] Dr. Lizzette Braga Disclaimer: Comment Normal [facility] Comment on above: Result Comment: This test was developed and its performance characteristics determined by [employer]. It has not been cleared or approved by the Food and Drug Administration. Performed By: #### U NICHOLE 24 #### [facility] [address] [place] [address] Dr. Lizzette Braga Dried Blood [facility] Comment on above: Performed By: #### U NICHOLE 24 #### [facility] [address] [place] [address] Dr. Lizzette Braga Drug or Metabolite Normal [facility] Comment on above: Performed By: #### U NICHOLE 24 #### [facility] [address] [place] [address] Dr. Lizzette Braga Hydroxyapatite [facility] Comment on above: Performed By: #### U NICHOLE 24 #### [facility] [address] [place] [address] Dr. Lizzette Braga Mg NH4 PO4 (Struvite) [facility] Comment on above: Performed By: #### U NICHOLE 24 #### [facility] [address] [place] [address] Dr. Lizzette Braga MgHPO4 (Newberyite) [facility] Comment on above: Performed By: #### U NICHOLE 24 #### [facility] [address] [place] [address] Dr. Lizzette Braga Other component(s) Normal [facility] Comment on above: Performed By: #### U NICHOLE 24 #### [facility] [address] [place] [address] Dr. Lizzette Braga PDF . Normal [facility] Comment on above: Performed By: #### U NICHOLE 24 #### [facility] [address] [address] [address] Lizzette Braga Photo Comment Normal [facility] Comment on above: Result Comment: Phill perez will follow under a separate cover Performed By: #### U NICHOLE 24 #### [facility] [address] [address] [address] Lizzette Braga Please note: Comment Normal [facility] Comment on above: Result Comment: Calc romelia report will follow via computer, mail or shot core drill operator helper delivery. Performed By: #### U NICHOLE 24 #### [facility] [address] [address] [address] Lizzette Braga Size 3x3 [facility] Comment on above: Result Comment: Mult iple pieces received. Dimensions of the largest piece reported. Performed By: #### U NICHOLE 24 #### [facility] [address] [place] [address] Dr. Lizzette Braga Sodium Acid Urate Normal [facility] Comment on above: Performed By: #### U NICHOLE 24 #### [facility] [address] [address] [address] Lizzette Braga Source Comment [facility] Comment on above: Result Comment: Not provided Performed By: #### U NICHOLE 24 #### [facility] [address] [address] [address] Lizzette Braga Triamterene [facility] Comment on above: Performed By: #### U NICHOLE 24 #### [facility] [address] [address] [address] Lizzette Braga Uric Acid [facility] Comment on above: Performed By: #### U NICHOLE 24 #### [facility] [address] [address] [address] Lizzette Braga Uric Acid Dihydrate Normal [facility] Comment on above: Performed By: #### U NICHOLE 24 #### [facility] [address] [place] [address] Dr. Lizzette Braga Weight 84 mg Normal [facility] Comment on above: Performed By: #### U NICHOLE 24 #### [facility] [address] [address] [address] Lizzette Braga Xanthine Normal [facility] Comment on above: Performed By: #### U NICHOLE 24 #### [facility] [address] [address] [address] Lizzette Braga XR KUB 1 VIEWon [...] ISRRAEL COOPER Date: 2021 07:[address] [facility] COVID-19 Positive/Negativeon 02-25-2021 SARS-CoV-2 (COVID-19) N gene TREVOR+probe Ql (Resp) Negative Negative [facility] Comment on above: Testing for SARS-CoV -2 by RT-PCRThis test was developed and its performance characteristics determined by [employer] and validated at the [facility]. This test has not been FDA [...] 02-14-2021 Basophils (Bld) [#/Vol] 0.0 10*3/uL 0.0-0.2 [facility] Basophils/100 WBC Auto (Bld) on 02-14-2021 Basophils/100 WBC (Bld) 0.5 % [facility] Blood hemoglobin measurement (mass/volume)on 02-14-2021 Hemoglobin (Bld) [Mass/Vol] 14.3 g/dL 11.8-15.4 [facility] Blood leukocytes automated c ount (number/volume)on 02-14-2021 WBC (Bld) [#/Vol] 5.0 10*3/uL 4.5-11.0 [facility] Creatinine and Glomerular fi ltration rate.predicted panel (S/P/Bld)on 02-14-2021 Creatinine [Mass/Vol] 0.89 mg/dL 0.44-1.03 [facility] Eosinophils Auto (Bld) [#/Vo l]on 02-14-2021 Eosinophils (Bld) [#/Vol] 0.1 10*3/uL 0.0-0.45 [facility] Eosinophils/100 WBC Auto (Bl d)on 02-14-2021 Eosinophils/100 WBC (Bld) 1.3 % [facility] Erythrocyte distribution wid th Auto (RBC) [Ratio]on 02-14-2021 Erythrocyte distribution width (RBC) [Ratio] 12.8 % 11.9-15.3 [facility] Estimated glomerular filtrat ion rate (GFR) non- Americanon 02-14-2021 GFR/1.73 sq M.predicted among non-blacks MDRD (S/P/Bld) [Vol rate/Area] > 60 mL/Min [facility] Hematocrit Auto (Bld) [Volum e fraction]on 02-14-2021 Hematocrit (Bld) [Volume fraction] 42.9 % 34.0-46.4 [facility] Laboratory - Hematology and Cell countson 02-14-2021 Nucleated RBC/100 WBC (Bld) [Ratio] 0.3 % 0-0.5 [facility] Lymphocytes Auto (Bld) [#/Vo l]on 02-14-2021 Lymphocytes (Bld) [#/Vol] 1.0 10*3/uL 1.00-4.8 [facility] Lymphocytes/100 WBC Auto (Bl d)on 02-14-2021 Lymphocytes/100 WBC (Bld) 19.9 % [facility] MCH Auto (RBC) [Entitic mass ]on 02-14-2021 MCH (RBC) [Entitic mass] 31.1 pg 24.7-34.3 [facility] MCHC Auto (RBC) [Mass/Vol]on 02-14-2021 MCHC (RBC) [Mass/Vol] 33.5 g/dL 32.0-35.0 [facility] MCV Auto (RBC) [Entitic vol] on 02-14-2021 MCV (RBC) [Entitic vol] 93.0 fL 80-100 [facility] Monocytes Auto (Bld) [#/Vol] on 02-14-2021 Monocytes (Bld) [#/Vol] 0.4 10*3/uL 0.0-0.8 [facility] Monocytes/100 WBC Auto (Bld) on 02-14-2021 Monocytes/100 WBC (Bld) 7.1 % [facility] Neutrophils Auto (Bld) [#/Vo l]on 02-14-2021 Neutrophils (Bld) [#/Vol] 3.6 10*3/uL 1.8-7.7 [facility] Neutrophils/100 WBC Auto (Bl d)on 02-14-2021 Neutrophils/100 WBC (Bld) 71.2 % [facility] No Panel Informationon 02-14 Estimated GFR () > 60 mL/Min [facility] Comment on above: GFR estimated refere nce range: According to KDOQI guidelines, <60 ml/min/1.73m2 is sufficient to diagnose a patient with chronic kidney disease. Pharmacy Creatinine Clearance (Chem N/A [facility] Platelet mean volume Auto (B ld) [Entitic vol]on 02-14-2021 Platelet mean volume (Bld) [Entitic vol] 10.2 fL 6.3-10.7 [facility] Platelets Auto (Bld) [#/Vol] on 02-14-2021 Platelets (Bld) [#/Vol] 198 10*3/uL 150-450 [facility] RBC Auto (Bld) [#/Vol]on RBC (Bld) [#/Vol] 4.61 10*6/uL 3.60-5.00 [facility] Serum or plasma calcium macario urement (mass/volume)on 02-14-2021 Calcium [Mass/Vol] 9.5 mg/dL 8.2-10.2 [facility] Serum or plasma chloride tylor surement (moles/volume)on 02-14-2021 Chloride [Moles/Vol] 100 mmol/L 95-[address] [facility] Serum or plasma glucose macario urement (mass/volume)on 02-14-2021 Glucose [Mass/Vol] 93 mg/dL 70-100 [facility] Comment on above: ADA recommended refe rence rangeRandom Glucose Reference Range is dependent on time and content of last meal. Glucose of more than 200 mg/dL in a nonstressed, ambulatory subject supports the diagnosis of Diabetes Mellitus. Serum or plasma potassium me asurement (moles/volume)on 02-14-2021 Potassium [Moles/Vol] 4.2 mmol/L 3.5-5.1 [facility] Serum or plasma sodium measu rement (moles/volume)on 02-14-2021 Sodium [Moles/Vol] 139 mmol/L 136-146 [facility] Serum or plasma total carbon dioxide measurement (moles/volume)on 02-14-2021 CO2 [Moles/Vol] 24.7 mmol/L 22.0-30.0 [facility] Serum or plasma urea nitroge n measurement (mass/volume)on 02-14-2021 Urea nitrogen [Mass/Vol] 20 mg/dL 9-23 [facility] Vital Signs Date Time Vital Sign Value Performing Clinician Facility 07-14-2024 15:26-0500 Body height 165.1 cm Liborio Sarabia MD Work Phone: [facility] 07-14-2024 15:26-0500 Body mass index (BMI) [Ratio] 21.61 kg/m2 Liborio Sarabia MD Work Phone: [facility] 07-14-2024 15:26-0500 Body temperature 96.8 [degF] Liborio Sarabia MD Work Phone: [facility] 07-14-2024 15:26-0500 Body weight 58.9 kg Liborio Sarabia MD Work Phone: [facility] 07-14-2024 15:26-0500 Diastolic blood pressure 87 mm[Hg] Liborio Sarabia MD Work Phone: [facility] 07-14-2024 15:26-0500 Heart rate 66 /min Liborio Sarabia MD Work Phone: [facility] 07-14-2024 15:26-0500 Respiratory rate 16 /min Liborio Sarabia MD Work Phone: [facility] 07-14-2024 15:26-0500 SaO2% (BldA) [Mass fraction] 100 % Liborio Sarabia MD Work Phone: [facility] 07-14-2024 15:26-0500 Systolic blood pressure 151 mm[Hg] Liborio Sarabia MD Work Phone: [facility] 06-07-2024 15:31-0400 Blood Pressure Location Rolandmari VELEZ [facility] 06-07-2024 15:31-0400 Diastolic blood pressure 84 mm[Hg] Roland VELEZ [facility] 06-07-2024 15:31-0400 Heart rate 96 /min Roland VELEZ [facility] 06-07-2024 15:31-0400 Respiratory rate 16 /min Roland VELEZ [facility] 06-07-2024 15:31-0400 Systolic blood pressure 128 mm[Hg] Roland VELEZ [facility] 02-29-2024 11:18-0400 Blood Pressure Location Roland VELEZ [facility] 02-29-2024 11:18-0400 Body temperature 98.6 [degF] Roland VELEZ [facility] 02-29-2024 11:18-0400 Diastolic blood pressure 84 mm[Hg] Roland VELEZ [facility] 02-29-2024 11:18-0400 Heart rate 69 /min Rolandmari VELEZ [facility] 02-29-2024 11:18-0400 Respiratory rate 16 /min Roland VELEZ [facility] 02-29-2024 11:18-0400 Systolic blood pressure 124 mm[Hg] Roland VELEZ [facility] 07-16-2023 14:59-0500 Body height 165.1 cm Liborio Sarabia MD Work Phone: [facility] 07-16-2023 14:59-0500 Body temperature 97.5 [degF] Liborio Sarabia MD Work Phone: [facility] 07-16-2023 14:59-0500 Body weight 58.15 kg Liborio Sarabia MD Work Phone: [facility] 07-16-2023 14:59-0500 Diastolic blood pressure 70 mm[Hg] Liborio Sarabia MD Work Phone: [facility] 07-16-2023 14:59-0500 Heart rate 80 /min Liborio Sarabia MD Work Phone: [facility] 07-16-2023 14:59-0500 Respiratory rate 16 /min Liborio Sarabia MD Work Phone: [facility] 07-16-2023 14:59-0500 SaO2% (BldA) [Mass fraction] 100 % Liborio Sarabia MD Work Phone: [facility] 07-16-2023 14:59-0500 Systolic blood pressure 159 mm[Hg] Liborio Sarabia MD Work Phone: [facility] 06-19-2023 14:45-0400 Body height 161.29 cm Juma Ball Other [employer] Other 06-19-2023 14:45-0400 Body mass index (BMI) [Ratio] 22.14 kg/m2 Juma Ball Other [employer] Other 06-19-2023 14:45-0400 Body weight 57.61 kg Juma Ball Other [employer] Other 06-19-2023 14:45-0400 Diastolic blood pressure 79 mm[Hg] Juma Ball Other [employer] Other 06-19-2023 14:45-0400 Respiratory rate 12 /min Juma Ball Other [employer] Other 06-19-2023 14:45-0400 Systolic blood pressure 156 mm[Hg] Juma Ball Other [employer] Other 10-28-2022 16:30-0500 Body height 161.29 cm Karina Aldo Other [employer] Other 10-28-2022 16:30-0500 Body mass index (BMI) [Ratio] 21.97 kg/m2 Karina Carlson Other [employer] Other 10-28-2022 16:30-0500 Body temperature 97.3 [degF] Karina Carlson Other [employer] Other 10-28-2022 16:30-0500 Body weight 57.15 kg Karina Carlson Other [employer] Other 10-28-2022 16:30-0500 Respiratory rate 19 /min Karina Carlson Other [employer] Other 10-28-2022 16:30-0500 SaO2% (BldA) [Mass fraction] Karina Carlson Other [employer] Other 08-06-2022 15:15-0500 Blood Pressure Location Roland VELEZ [facility] 08-06-2022 15:15-0500 Diastolic blood pressure 80 mm[Hg] Roland VELEZ [facility] 08-06-2022 15:15-0500 Heart rate 72 /min Roland VELEZ [facility] 08-06-2022 15:15-0500 Systolic blood pressure 141 mm[Hg] Roland VELEZ [facility] 06-16-2022 15:31-0400 Body height 165.1 cm Liborio Sarabia MD Work Phone: [facility] 06-16-2022 15:31-0400 Body temperature 97.39 [degF] Liborio Sarabia MD Work Phone: [facility] 06-16-2022 15:31-0400 Body weight 55.97 kg Liborio Sarabia MD Work Phone: [facility] 06-16-2022 15:31-0400 Diastolic blood pressure 67 mm[Hg] Liborio Sarabia MD Work Phone: [facility] 06-16-2022 15:31-0400 Heart rate 82 /min Liborio Sarabia MD Work Phone: [facility] 06-16-2022 15:31-0400 Respiratory rate 16 /min Liborio Sarabia MD Work Phone: [facility] 06-16-2022 15:31-0400 SaO2% (BldA) [Mass fraction] 99 % Liborio Sarabia MD Work Phone: [facility] 06-16-2022 15:31-0400 Systolic blood pressure 147 mm[Hg] Liborio Sarabia MD Work Phone: [facility] 03-12-2022 10:42-0400 Blood Pressure Location Roland VELEZ [facility] 03-12-2022 10:42-0400 Diastolic blood pressure 89 mm[Hg] Rolandmari VELEZ [facility] 03-12-2022 10:42-0400 Heart rate 85 /min Roland VELEZ [facility] 03-12-2022 10:42-0400 Respiratory rate 16 /min Roland VELEZ [facility] 03-12-2022 10:42-0400 Systolic blood pressure 139 mm[Hg] Roland VELEZ [facility] Encounters Encounter Date Encounter Type Care Provider Facility Start: 03-03-2025 ambulatory Roland Andersen ty:[facility] Start: 08-30-2024 End: 08-30-2024 ambulatory DIPTI TOVAR Facility:[facility] Start: 08-30-2024 End: 08-30-2024 Lab Drop off DIPTI TOVAR [facility] Start: 08-30-2024 End: 08-30-2024 ambulatory DIPTI TOVAR Facility: [facility] Start: 08-30-2024 End: 08-30-2024 Patient encounter procedure DIPTI TOVAR [facility] Start: 08-17-2024 End: 08-17-2024 Telephone encounter Audra Andrews RN Hematology/Oncology Comment on above: Results Start: 08-15-2024 End: 08-16-2024 ambulatory Liborio Sarabia MD Work Phone: Hematology/Oncology Comment on above: Test Start: 08-11-2024 End: 08-11-2024 ambulatory JUMA BUCKNER Facility:[facility] Start: 07-15-2024 End: 07-15-2024 ambulatory Liborio Sarabia MD Work Phone: Hematology/Oncology Comment on above: Concern Start: 07-15-2024 End: 07-17-2024 Telephone encounter Olivia Oneal RN Hematology/Oncology Start: 07-14-2024 End: 07-14-2024 ambulatory JUMA BUCKNER Facility:[facility] Start: 07-14-2024 End: 07-14-2024 Office outpatient visit 15 minutes Liborio Sarabia MD Work Phone: Hematology/Oncology Comment on above: Malignant neoplasm o f upper-outer quadrant of right breast in female, estrogen receptor positive (HCC) (Primary Dx); Encounter for screening mammogram for malignant neoplasm of breast Start: 06-07-2024 End: 06-07-2024 ambulatory Roland VELEZ Facility:[facility] Start: 06-07-2024 End: 06-07-2024 Patient encounter procedure Roland VELEZ [facility] Start: 05-28-2024 End: 05-28-2024 ambulatory [facility] Start: 05-26-2024 End: 05-26-2024 ambulatory Roland R VELEZ Facility:[id number] Start: 05-20-2024 End: 05-20-2024 Patient encounter procedure [facility] Provider [facility] Department Start: 05-20-2024 End: 05-20-2024 Telephone encounter Audra Andrews RN Hematology/Oncology Comment on above: DX code for screenin g mammogram needed Start: 04-13-2024 Non-patient / Non-visit DO Loi Buckner Work Phone: [facility] Work Phone: Start: 04-13-2024 End: 04-14-2024 ambulatory DO Juma Buckner Work Phone: [facility] Work Phone: Start: 04-13-2024 End: 04-13-2024 Departed Referred DO Juma Buckner Work Phone: [facility] Start: 04-04-2024 Non-patient / Non-visit DO Loi Buckner Work Phone: [facility] Work Phone: Start: 02-29-2024 End: 02-29-2024 ambulatory Roland VELEZ Facility:[facility] Start: 02-29-2024 End: 02-29-2024 Patient encounter procedure Roland VELEZ [facility] Start: 07-17-2023 End: 07-17-2023 ambulatory Juma Buckner Other [facility] [employer] Other Start: 07-17-2023 Telephone encounter Juma Buckner [facility] Start: 07-16-2023 End: 07-16-2023 ambulatory Liborio Sarabia MD Work Phone: Hematology/Oncology Comment on above: Malignant neoplasm o f upper-outer quadrant of right breast in female, estrogen receptor positive (HCC) (Primary Dx); Age-related osteoporosis without current pathological fracture Start: 07-16-2023 End: 07-16-2023 Patient encounter procedure Liborio Sarabia MD Work Phone: [facility] Start: 06-19-2023 End: 06-19-2023 ambulatory Juma Buckner Other [employer] Other Start: 06-19-2023 Encounter for genera l adult medical examination without abnormal findings Juma Buckner [facility] Start: 06-19-2023 Periodic preventive med est patient 40-64yrs Juma Buckner [facility] Start: 04-27-2023 Telephone encounter Dipti Baumann RN Hematology/Oncology Comment on above: Orders Start: 10-28-2022 End: 10-28-2022 ambulatory Karina Carlson Other [employer] Other Start: 10-28-2022 Office outpatient ne w 20 minutes Karina Carlson [facility] Start: 08-06-2022 End: 08-06-2022 Patient encounter procedure Roland VELEZ [facility] Start: 06-16-2022 End: 06-16-2022 ambulatory Liborio Sarabia [...] encounter procedure Roland VELEZ [facility] Start: 02-27-2022 End: 02-28-[address] JUMA BUCKNER Facility:[facility] Start: 01-27-2022 Refill Ryan Daniels [employer]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[employer]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 Phone: Hematology/Oncology Comment on above: Refill Request Start: 04-26-2021 End: 04-26-[address] ROLAND VELEZ Facility:[facility] Start: 2021 End: [address] ROLAND VELEZ Facility:[facility] Start: 02-25-2021 End: 02-25-2021 Patient encounter procedure Adrian nOeal Jr Work Phone: -Pre-Surgical Testing Start: 02-14-2021 End: 02-14-2021 Patient encounter procedure Adrian Oneal Work Phone: -Pre-Surgical Testing Procedures Date Procedure Procedure Detail Performing Clinician Start: 06-07-2024 Cystoscopic removal of ureteric stent Roland VELEZ Start: 05-02-2022 Mammography Dipti shearer RN Start: 06-17-2021 Adult depression scr eening assessment Ryan Daniels TRANSVERSE ABDOM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 Phone: Start: 04-30-2021 Mammography Ryan ledesma TRANSVERSE ABDOM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 Phone: Start: 2021 Extracorporeal shock wave lithotripsy of calculus of kidney Roland VELEZ Start: 11-07-2019 Cystoscopy Roland MATHEWS Appendectomy Roland VELEZ Breast structure (cele dy structure) Roland VELEZ Tonsillectomy Roland VELEZ Plan of Treatment Date Care Activity Detail Author Start: 2035 RSV Vaccine (1 - 1-d ose 75+ series) RSV Vaccine (1 - 1-dose 75+ series) [facility] Start: 07-14-2027 Diabetes Screening Diabetes Screenin g [facility] Start: 05-28-2025 Screening for malign ant neoplasm of breast Mammogram Screening [facility] Start: 08-11-2024 End: 08-11-2024 Patient encounter procedure 08/11/2024 4:00 PM EST Office Visit [facility] [address] [place] [address] LAB [facility] Comment on above: LAB Start: 08-11-2024 End: 11-10-2024 Cancer Ag 27-29 [Units/volume] in Serum or Plasma CA 27.29 BLOOD Lab Routine Malignant neoplasm of upper-outer quadrant of right breast in female, estrogen receptor positive (HCC) Expected: 08/11/2024, Expires: 11/10/2024 [facility] Work Phone: Comment on above: Expected: 08/11/2024 , Expires: 11/10/2024 Start: 07-14-2024 End: 07-14-2024 Follow-up encounter 07/14/2024 3:45 PM EST Visit (SP) Office Hematology/Oncology [address] [place] [address] Liborio Sarabia MD [address] [address] 1 year follow up Hematology/Oncology Comment on above: 1 year follow up Start: 07-14-2024 End: 07-14-2024 Patient encounter procedure 07/14/2024 3:30 PM EST Office Visit [facility] [address] [place] [address] 1 year follow up [facility] Comment on above: 1 year follow up Start: 07-14-2024 End: 10-13-2024 Cancer Ag 27-29 [Units/volume] in Serum or Plasma [facility] Work Phone: Comment on above: Expected: 07/14/2024 , Expires: 10/13/2024 Start: 06-17-2024 DIABETES SCREEN DIABETES SCREEN [facility] Start: 06-17-2024 Diabetes Screening Diabetes Screenin g [facility] Start: 05-08-2024 Covid-19 Vaccine ( season) Covid-19 Vaccine () [facility] Start: 05-08-2024 Covid-19 Vaccine ( season) Covid-19 Vaccine () [facility] Start: 05-08-2024 Influenza vaccination Influenza Vacc ine (#1) [facility] Start: 05-04-2024 Mammography Mammogram Screening [facility] Start: 05-04-2024 Screening for malign ant neoplasm of breast Mammogram Screening [facility] Start: 04-10-2024 Screening for malign ant neoplasm of colon [facility] Start: 05-08-2023 Influenza vaccination C [facility] Start: 05-02-2023 Mammography MAMMOGRAM [facility] Start: 09-07-2022 DEPRESSION ASSESSMENT DEPRESSION ASS [facility] Start: 06-17-2022 Adult depression screening assessment DEPRESSION SCREENING [facility] Start: 05-08-2022 Influenza vaccination C [facility] Start: 04-30-2022 Mammography MAMMOGRAM [facility] Start: 09-07-2021 DEPRESSION ASSESSMENT DEPRESSION ASS ESSMENT [facility] Start: 2020 RSV Vaccine (1 - 1-d ose 60+ series) RSV Vaccine (1 - 1-dose 60+ series) [facility] Start: 2010 SHINGRIX VACCINE (1 of 2) SHINGRIX VACCINE (1 of 2) [facility] Start: 2005 COLOGUARD (FIT-DNA) COLOGUARD (FIT-D NA) [facility] Start: 2005 Colonoscopy COLONOSCOPY [facility] Start: 2005 COLORECTAL CANCER SCREENING COLORECTAL CANCER SCREENING [facility] Start: [address] COLONOGRAPHY [facility] Start: 2005 FECAL OCCULT BLOOD FECAL OCCULT BLOO D [facility] Start: 2005 Lipid 1996 panel - S gisell or Plasma Lipid Screening [facility] Start: 2005 Lipid panel Lipid Screening [facility] Start: 2005 LIPID SCREEN LIPID SCREEN [facility] Start: 2005 Screening for malign ant neoplasm of colon [facility] Start: 2005 SIGMOIDOSCOPY SIGMOIDOSCOPY [facility] Start: 1990 HPV TESTING HPV TESTING [facility] Start: 1981 PAP TESTING PAP TESTING [facility] Start: 1981 Screening for malign ant neoplasm of cervix Cervical Cancer Screening [facility] Start: 1979 Urine microalbumin profile [facility] Start: 1978 Anxiety Screening Anxiety Screening [facility] Start: 1978 Depression Screening Depression Scre ening [facility] Start: 1978 HEPATITIS C SCREENING HEPATITIS C SC [facility] Start: 1978 Hepatitis C screening Hepatitis C Sc [facility] Start: 1978 HIV SCREENING HIV SCREENING [facility] Start: 1978 HIV screening HIV Screening [facility] Start: 1966 PNEUMOCOCCAL (1 - PCV) PNEUMOCOCCAL (1 - PCV) [facility] Start: 1965 COVID-19 VACCINE (#1) COVID-19 VACCI NE (#1) [facility] Start: 1960 COVID-19 VACCINE (#1) COVID-19 VACCI NE (#1) [facility] End: 07-16-2023 Diagnostic mammography computer-aided detcj bi MEMO DIAGNOSTIC BILAT Radiology Routine Malignant neoplasm of upper-outer quadrant of right breast in female, estrogen receptor positive (HCC) 1 Occurrences starting 06/16/2022 until 07/16/2023 [facility] Work Phone: Comment on above: 1 Occurrences starti ng 06/16/2022 until 07/16/2023 End: 08-14-2024 DXA-FOREARM SKELETON DXA-FOREARM SKELETON Radiology Routine Age-related osteoporosis without current pathological fracture Malignant neoplasm of upper-outer quadrant of right breast in female, estrogen receptor positive (HCC) 1 Occurrences starting 07/16/2023 until 08/14/2024 [facility] Work Phone: Comment on above: 1 Occurrences starti ng 07/16/2023 until 08/14/2024 End: 05-26-2024 MEMO SCREENING MEMO SCREENING Radiology Routine Encounter for screening mammogram for malignant neoplasm of breast 1 Occurrences starting 04/27/2023 until 05/26/2024 [facility] Work Phone: Comment on above: 1 Occurrences starti ng 04/27/2023 until 05/26/2024 End: 08-14-2024 MEMO SCREENING W FAISAL MEMO SCREENING W FAISAL Radiology Routine Age-related osteoporosis without current pathological fracture Malignant neoplasm of upper-outer quadrant of right breast in female, estrogen receptor positive (HCC) 1 Occurrences starting 07/16/2023 until 08/14/2024 [facility] Work Phone: Comment on above: 1 Occurrences starti ng 07/16/2023 until 08/14/2024 End: 08-13-2025 MG Breast Screening MEMO SCREENING Radiology Routine Encounter for screening mammogram for malignant neoplasm of breast 1 Occurrences starting 07/14/2024 until 08/13/2025 [facility] Comment on above: 1 Occurrences starti ng 07/14/2024 until 08/13/2025 [facility] Immunizations Immunization Date Immunization Notes Care Provider Fa cility NEGATED: Highlighted row has not occurred!08-30-2024 influenza virus vaccine, unspecified formulation DIPTIOC TOVAR [facility] Payers Date Payer Category Payer Self-pay [id number] 2016 Unknown [id number] 2012 Unknown MMO MMO [employer] [id number] 2012-Present [phone] [address] [place] [address] PPO [id number] 1960 Unknown [id number] 1960 Unknown [id number] 1960 Unknown [id number] 1960 Unknown [id number] 1960 Unknown [id number] [id number] 1960 Unknown [id number] [id number] 1960 Unknown [id number] 1960 Unknown [id number] [id number] 1960 Unknown [id number] [id number] 1960 Unknown [id number] [id number] 1960 Unknown [id number] [id number] 1960 Unknown [id number] [id number] 1960 Unknown [id number] [id number] 1960 Unknown [id number] 1959 Unknown [id number] Unknown [id number] Social History Date Type Detail Facility Start: 02-14-2021 End: 08-30-2024 Tobacco smoking status NHIS Never smoked tobacco (finding) [facility] Start: 1960 Sex Assigned At Female F [facility] Start: 04-25-2014 Tobacco use and exposure Smokeless tobacco non-user [facility] Start: 06-17-2021 End: 07-14-2024 Alcohol intake Current non-drinker of alcohol (finding) [facility] Start: 1960 Sex Assigned At Not on file C [facility] Start: 06-16-2022 End: 07-16-2023 Sex Assigned At Female [facility] Start: 06-06-2022 End: 06-16-2022 Exposure to SARS-CoV-2 (event) Not sure [facility] Tobacco smoking status Never [facility] Start: 06-16-2022 End: 07-16-2023 History of Social function [facility] Functional Status Date Assessment Result Facility 06-07-2024 Functional Status N/A [facility] 02-29-2024 Functional Status N/A [facility] 08-06-2022 Functional Status N/A [facility] 03-12-2022 Functional Status N/A [facility] [employer] Clinical Notes 09-02-2012 to 08-29-2024 Telephone Encounter - Audra Andrews RN - 08/17/2024 11:17 AM ESTTelephone Encounter - Audra Andrews RN - 08/17/2024 11:17 AM ESTTelephone Encounter - Ayala James - 07/15/2024 3:33 PM EST Note Date & Type Note Facility 08-29-2024 Hospital Discharg e instructions Patient Education 08/29/2024 13:18:44 Kidney Stones, Weez-wt-Njlz Kidney Stones Kidney stones are rock-like masses [...] Follow these instructions at home: Medicines Take cqdp-tof-fpwunot and prescription medicines only as told by [...] Kidney Foundation (NKF): kidney.org Urology Care Foundation (F): urologyhealth.org Contact a doctor if: You have [...] provider. Document Revised: 04/17/2023 Document Reviewed: 04/17/2023 [employer] Patient Education 2023 [employer]. Follow Up Care 06/07/2024 16:03:52 With:DIPTI TOVAR PA-C, URL Address: [address] [place] [address]. [place] [address] Business (1) When: Unknown Comments:pending results of imaging/testing, will call with next steps [facility] 08-29-2024 Note Patient Education Urology Kidney Stones Kidney stones are rock-like masses that form inside of the kidneys. Kidneys are organs that make pee (urine). A kidney stone may move into other parts of the urinary tract, including: ??? The tubes that connect the kidneys to the bladder (ureters). ??? The bladder. ??? The tube that carries urine out of the body (urethra). Kidney stones can cause very bad pain and can block the flow of pee. The stone usually leaves your body through your pee. A doctor may need to take out the stone. What are the causes? Kidney stones may be caused by: ??? Too much calcium in the body. This may be caused by too much parathyroid hormone in the blood. ??? Uric acid crystals in the bladder. The body makes uric acid when you eat certain foods. ??? Narrowing of one or both of the ureters. ??? A kidney blockage that you were born with. ??? Past surgery on the kidney or the ureters. What increases the risk? You are more likely to develop this condition if: ??? You have had a kidney stone in the past. ??? Other people in your family have had kidney stones. ??? You do not drink enough water. ??? You eat a diet that is high in protein, salt (sodium), or sugar. ??? You are very overweight (obese). What are the signs or symptoms? Symptoms of a kidney stone may include: ??? Pain in the side of the belly, right below the ribs. Pain usually spreads to the groin. ??? Needing to pee often or right away. ??? Pain when peeing. ??? Blood in your pee. ??? Feeling like you may vomit (nauseous). ??? Vomiting. ??? Fever and chills. How is this treated? Treatment depends on the size, location, and makeup of the kidney stones. The stones will often pass out of the body when you pee. You may need to: ??? Drink more fluid to help pass the stone. ? In some cases, you may be given fluids through an IV tube at the hospital. ??? Take medicine for pain. ??? Change your diet to help keep kidney stones from coming back. Sometimes, you may need: ??? A procedure to break up kidney stones using a beam of light (laser) or shock waves. ??? Surgery to remove the kidney stones. Follow these instructions at home: Medicines ??? Take cdrv-ukt-fctphbk and prescription medicines only as told by your doctor. ??? Ask your doctor if the medicine prescribed to you requires you to avoid driving or using machinery. Eating and drinking ??? Drink enough fluid to keep your pee pale yellow. ? You may be told to drink at least 8?10 glasses of water each day. This will help you pass the stone. ??? If told by your doctor, change your diet. You may be told to: ? Limit how much salt you eat. ? Eat more fruits and vegetables. ? Limit how much meat, poultry, fish, and eggs you eat. ??? Follow instructions from your doctor about what you may eat and drink. General instructions ??? Collect pee samples as told by your doctor. You may need to collect a pee sample: ? 24 hours after a stone comes out. ? 8?12 weeks after a stone comes out, and every 6?12 months after that. ??? Strain your pee every time you pee. Use the strainer that your doctor recommends. ??? Do not throw out the stone. Keep it so that it can be tested by your doctor. ??? Keep all follow-up visits. You may need X-rays and ultrasounds to make sure the stone has come out. How is this prevented? To prevent another kidney stone: ??? Drink enough fluid to keep your pee pale yellow. This is the best way to prevent kidney stones. ??? Eat healthy foods. ??? Avoid certain foods as told by your doctor. You may be told to eat less protein. ??? Stay at a healthy weight. Where to find more information ??? National Kidney Foundation (NKF): kidney.org ??? Urology Care Foundation (UCF): urologyhealth.org Contact a doctor if: ??? You have pain that gets worse or does not get better with medicine. Get help right away if: ??? You have a fever or chills. ??? You get very bad pain. ??? You get new pain in your belly. ??? You faint. ??? You cannot pee. This information is not intended to replace advice given to you by your health care provider. Make sure you discuss any questions you have with your health care provider. Document Revised: 04/17/2023 Document Reviewed: 04/17/2023 [employer] Patient Education ? 2023 [employer]. [facility] 08-17-2024 Telephone encounter Note VM left for pt with BRM message below. Encouraged to call with any questions, needs or concerns. Audra Andrews RN [facility] 08-17-2024 Miscellaneous Notes VM left for pt [...] if symptoms develop. documented in this encounter [facility] 08-17-2024 Telephone encounter Note ----- Message from Liborio Sarabia MD sent at 08/17/2024 11:09 AM EST ----- Please inform the patient that her follow-up tumor marker is normal. I believe the lab obtained 07/14 was a false alarm. No need for further follow-up at this time. Call if symptoms develop. [facility] 07-15-2024 Telephone encounter Note Patient has been added to schedule w/ notes documented. Ayala James [facility] 07-15-2024 Miscellaneous Notes Patient has been added [...] out possible recurrence. documented in this encounter [facility] 07-15-2024 Telephone encounter Note Discussed results with patient. She verbalized understanding. PSS: Please schedule repeat CA27.29 for 08/11/24 at 4pm. Please put in comments patient gets out of school at 330 may be here before 4.(Patient is already aware of this appointment) BRM: Please sign pending lab order. Klever Oneal RN [facility] 07-15-2024 Telephone encounter Note Called and left a VM message for patient to call back with results and Dr. Sarabia's recommendations. Klever Oneal RN [facility] 07-15-2024 Telephone encounter Note ----- Message from [...] would stage to rule out possible recurrence. [facility] 07-13-2024 Note HNO ID: [id number] Author: LIBORIO SARABIA MD Service: ? Author [...] Diagnosis Date Breast cancer (HCC) Right; ER+ IA- PAST SURGICAL HISTORY: PAST SURGICAL HISTORY Procedure [...] 197 RADIOLOGY/OTHER STUDIES: 05/28/2024 Bilateral screening mammogram ([facility]) No mammographic evidence of malignancy.. Routine follow-up in 1 year recommended. 05/28/2024 Bone density DEXA ([facility]) Osteopenia. Max T score -2.4 left femoral neck, left femur, and right femur. ASSESSMENT/PLAN: 1. 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 [facility] 07-13-2024 History of Presen t illness Narrative [...] Diagnosis Date Breast cancer (HCC) Right; ER+ IA- PAST SURGICAL HISTORY: PAST SURGICAL HISTORY Procedure [...] 197 RADIOLOGY/OTHER STUDIES: 05/28/2024 Bilateral screening mammogram ([facility]) No mammographic evidence of malignancy.. Routine follow-up in 1 year recommended. 05/28/2024 Bone density DEXA ([facility]) Osteopenia. Max T score -2.4 left femoral neck, left femur, and right femur. ASSESSMENT/PLAN: 1. 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 Buckner documented in this encounter [facility] 06-07-2024 Hospital Discharg e instructions Patient Education [...] you may eat and drink normally. Take vvrc-qbk-ybokteb and prescription medicines only as told by your health care provider. Let your health care provider know about any medicines that you are taking, including pdat-csn-oinvwym medicines, vitamins, herbs, and supplements. Choose a [...] provider. Document Revised: 02/28/2022 Document Reviewed: 02/28/2022 [employer] Patient Education 2023 [employer]. 06/07/2024 15:56:06 Kidney Stones, Smgo-fg-Vbvq Kidney Stones Kidney stones are rock-like masses [...] Follow these instructions at home: Medicines Take lasv-ogu-hrhenbk and prescription medicines only as told by [...] provider. Document Revised: 04/17/2023 Document Reviewed: 04/17/2023 [employer] Patient Education 2023 [employer]. Follow Up Care 06/01/2024 11:18:05 With:PATRICIA STRICKLAND, Roland Barksdale, URL Address: [facility] [address] , [place] [phone] When: Unknown [facility] 06-07-2024 Note Patient Education Urology 24-Hour [...] may eat and drink normally. ? Take tkuh-ktd-bcnetrb and prescription medicines only as told by your health care provider. ? Let your health care provider know about any medicines that you are taking, including iemm-lkk-eqsdfat medicines, vitamins, herbs, and supplements. ? Choose [...] provider. Document Revised: 02/28/2022 Document Reviewed: 02/28/2022 [employer] Patient Education ? 2023 [employer]. Kidney Stones Kidney stones are rock-like masses [...] usually spreads to (more content not included)... [facility] 05-20-2024 Telephone encounter Note [facility] called for DX code to be added to screening mammogram order. Z12.31 added and faxed to requested # [phone]. Pt is scheduled next week. Audra Andrews RN [facility] 05-20-2024 Miscellaneous Notes [facility] called for DX code to be added to screening mammogram order. Z12.31 added and faxed to requested # [phone]. Pt is scheduled next week. Audra Andrews RN documented in this encounter [facility] 02-29-2024 Hospital Discharg e instructions [...] include: ?8 oz (237 mL) of milk, jdabweq-bwipshpjckgj-wwsjq milk, and calcium-fortifiedfruit juice. Calcium-fortified means that [...] ?Spinach (cooked), rhubarb, beets, sweet potatoes, and [place]guillan chard. ?Peanuts. ?Potato chips, swedish fries, and baked potatoes with skin on. ?Nuts and nut products. ?Chocolate. If you regularly take a diuretic medicine, make sure to eat at least 1 or 2 servings of fruits or vegetables that are high in potassium each day. These include: ?Avocado. ?Banana. ?Flint, prune, carrot, or tomato juice. ?Baked potato. [...] magnesium, fish oil, or vitamin B6. Take jead-ljq-qitwxaa and prescription medicines only as told by [...] Casseroles. Pizza. Lasagna. Frozen meals. Potato chips. Moroccan fries. The items listed above may not [...] provider. Document Revised: 12/04/2022 Document Reviewed: 12/04/2022 [employer] Patient Education 2022 [employer]. Follow Up Care 08/06/2022 16:16:25 With:PATRICAI STRICKLAND, Roland Barksdale, URL Address: [facility] [address], [place] [address]- [phone] When: Unknown Comments:1 yr w/ PATRICIA [facility] 07-17-2023 Evaluation note Encounter Date Diagnosis Assessment Notes Jul, Malignant neoplasm of upper-outer quadrant of right female breast (ICD-10 - C50.411) Lumpectomy 2011, adjuvent chemotherapy, adjuvent radiation therapy, completed 9 years hormone therapy Jul, Estrogen receptor positive status [ER+] (ICD-10 - Z17.0) [employer] Other [id number] Nurse Note* Akua Jorge MA - 07/16/2023 3:02 PM EST Patient would like opinion on right hand pinky finger she has a bump her PCP looked at it said it was probably a cyst but she would still like your opinion, it has not changed at all. Akua Jorge MA documented in [facility] History of Present illness Narrative* Liborio Sarabia [...] Diagnosis Date Breast cancer (HCC) Right; ER+ IA- PAST SURGICAL HISTORY: PAST SURGICAL HISTORY Procedure [...] 197 RADIOLOGY/OTHER STUDIES: 05/04/2023 Bilateral diagnostic mammogram ([facility]) Stable postsurgical change in the right breast. No mammographic evidence of malignancy.. Routine follow-up in 1 year recommended. 05/02/2022 Bone density DEXA ([facility]) Osteoporosis. Max T score -2.6 left femoral neck, left femur, and right femur. ASSESSMENT/PLAN: 1. 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 Buckner documented in [facility] Evaluation note* Encounter Date Diagnosis [...] to the patient. Recommend referral for excision. [employer] Other 08-21-2023 Miscellaneous Notes* Telephone Encounter - Ayala James - 04/27/2023 4:23 PM EDT Received order at lead front desk agent. Faxed order April 27, 2023 4:23 PM [...] pended for signature. PSS: Please fax to [phone] Thanks. Dipti Baumann RN documented in this encounterUniversity [facility]23 Evaluation note* Encounter Date Diagnosis [...] to ER immediately, Conjunctivitis material was printed [employer] Other 11-30-2022 Hospital Discharge instructions Patient Education [...] include: ?Spinach. ?Rhubarb. ?Beets. ?Potato chips and swedish fries. ?Nuts. If you regularly take a diuretic medicine, make sure to eat at least 1 2 fruits or vegetables high in potassium each day. These include: ?Avocado. ?Banana. ?Flint, prune, carrot, or tomato juice. ?Baked potato. [...] Casseroles. Pizza. Lasagna. Frozen meals. Potato chips. Moroccan fries. Summary You can reduce your risk [...] 12/19/2011 Document Revised: 12/14/2019 Document Reviewed: 08/04/2017 [employer] Patient Education 2020 [employer]. Follow Up Care 04/30/2022 15:39:48 With:PATRICIA STRICKLAND, Roland Barksdale, URL Address: [facility] [address], [place] [address]- When: Unknown [facility] 10-10-2022 History of Present illness Narrative* Liborio [...] Diagnosis Date Breast cancer (HCC) Right; ER+ IA- PAST SURGICAL HISTORY: PAST SURGICAL HISTORY Procedure [...] 197 RADIOLOGY/OTHER STUDIES: 05/02/2022 Bone density DEXA ([facility]) Osteoporosis. Max T score -2.6 left femoral neck, left femur, and right femur. And left femur 05/02/2022 Bilateral diagnostic mammogram ([facility]) Stable postsurgical change in the right breast. No mammographic evidence of malignancy or significant change. Routine follow-up in 1 year recommended. ASSESSMENT/PLAN: 1. 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 Buckner documented in this encounter[facility] Hospital Discharge instructions Patient Education [...] Follow these instructions at home: Medicines Take trix-svz-itxtsxf and prescription medicines only as told by [...] 08/24/2006 Document Revised: 01/10/2020 Document Reviewed: 01/10/2020 [employer] Patient Education 2019 [employer]. Follow Up Care 02/13/2022 09:45:15 With:PATRICIA STRICKLAND, Roland Barksdale, URL Address: [facility] [address], [place] [address]- When:3 months Comments:w/metabolic workup [facility] 05-23-2022 Miscellaneous Notes* Telephone Encounter - Ryan Daniels APRN.CNP - 01/27/2022 4:44 PM EDT The following approved medication requests have been refused. Refused Prescriptions Disp Refills anastrozole (ARIMIDEX) 1 mg tablet [Pharmacy Med Name: ANASTROZOLE TABS 1MG] 90 tablet 3 Sig: TAKE 1 TABLET DAILY OFELIA: No Refused By: RYAN DANIELS Reason for Refusal: A Refill not appropriate Ryan Daniels APRN.[employer] FARMWORK[employer] documented in this encounterUniversity [facility]12-27-2012 History of Past illness Narrative* Problem Noted Date Resolved Date Breast CA 09/02/2012 09/16/2018 Overview: Right; ER+ IA-; HER2 - documented as of this encounter (statuses as of 01/28/2022) [facility]12[facility] History of Past illness Narrative* Problem Noted Date Resolved Date Breast CA 09/02/2012 09/16/2018 Overview: Right; ER+ IA-; HER2 - documented as of this encounter (statuses as of 06/17/2022) [place] [id number] History of Past illness Narrative* Problem Noted Date Diagnosed Date Resolved Date Breast CA 09/02/2012 09/16/2018 Overview: Right; ER+ IA-; HER2 - documented as of this encounter (statuses as of 04/28/2023) [place] [id number] History of Past illness Narrative* Problem Noted Date Diagnosed Date Resolved Date Breast CA 09/02/2012 09/16/2018 Overview: Right; ER+ IA-; HER2 - documented as of this encounter (statuses as of 07/17/2023) [facility] Appointment Date:06/23/2022 03:00:00 PM Scheduled Provider:[facility]LEZ [facility] Evaluation + Plan note Future Appointments Appointment Date:08/10/2023 02:45:00 PM Scheduled Provider:Roland VELEZ MD [facility] Type:[facility]O Office Visit [facility] evaluation + Plan note Future Appointments Appointment Date:03/03/2025 08:45:00 AM Scheduled Provider:Roland VELEZ MD Location:[facility] Appointment Type:URO Office Visit [facility] evaluation + Plan note Future Appointments Appointment Date:08/30/2024 09:00:00 AM Scheduled Provider:DIPTI TOVAR PA-C Location:[facility] Appointment Type:URO Office Visit Appointment Date:03/03/2025 08:45:00 AM Scheduled Provider:Roland VELEZ MD [facility] Type:URO Office Visit [facility] [employer] evaluation + Plan note Future Appointments Appointment Date:03/03/2025 08:45:00 AM Scheduled Provider:Roland VELEZ MD [facility] Type:URO Office Visit Diagnostic Tests Pending * Urine Culture 08/30/24 [facility] evaluation noteNo assessment information available [facility] Diagnosis Malignant neoplasm of upper-outer quadrant of right breast in female, estrogen receptor positive (HCC)- Primary Age-related osteoporosis without current pathological fracture Senile osteoporosis documented in this encounter [facility]* Diagnosis Encounter for screening mammogram for malignant neoplasm of breast- Primary Other screening mammogram documented in this encounter [facility]* Diagnosis Malignant neoplasm of upper-outer quadrant of right breast in female, estrogen receptor positive (HCC)- Primary Age-related osteoporosis without current pathological fracture Senile osteoporosis documented in this encounter [facility] note* Diagnosis Malignant neoplasm of upper-outer quadrant of right breast in female, estrogen receptor positive (HCC)- Primary Encounter for screening mammogram for malignant neoplasm of breast Other screening mammogram documented in this encounter [facility] note* Diagnosis Malignant neoplasm of upper-outer quadrant of right breast in female, estrogen receptor positive (HCC)- Primary documented in this encounter [facility] general Narrative - Reported* Type Description Date Medical History Breast cancer Surgical History appendectomy Surgical History tonsillectomy Surgical History lumpectomy, right breast x2 201 2 Hospitalization History see above surgical [employer] VTM Other History general Narrative - Reported* Type Description Date Medical History Breast cancer Medical History Nephrolithiasis Medical History Osteopenia of lumbar spine Surgical History appendectomy Surgical History tonsillectomy Surgical History lumpectomy, right breast x2 201 2 Hospitalization History see above surgical histo VTM Other Hospital course Narrative No data available for this section [facility] Hospital Discharge instructions No data available for this section [facility] Progress note No data available for this section [facility] Reason for referral (narrative)* Diagnostic Procedure Only (Routine) - Pending Review Specialty Diagnoses / Procedures Referred By Contac t Referred To Contact [facility] Diagnoses Malignant neoplasm of upper-outer quadrant of right breast in female, estrogen receptor positive (HCC) Procedures MEMO DIAGNOSTIC BILAT DIAGNOSTIC MAMMOGRAPHY COMPUTER-AIDED DETCJ Liborio Miranda MD [address] [place] [address] [place] [address] [facility] [address] [place] [address] Referral ID Status Reason Start Date Expiration Date Visits Requested Visits Authorized [id number] Pending Review Auto-Generat ed Referral 2 07/16/2023 1 1 [facility] for referral (narrative)* Diagnostic Procedure Only (Routine) - Pending Review Specialty Diagnoses / Procedures Referred By Contac t Referred To Contact [facility] Diagnoses Encounter for screening mammogram for malignant neoplasm of breast Procedures MEMO SCREENING SCREENING MAMMOGRAPHY BI 2-VIEW BREAST INC Liborio Chau MD [address] [place] [address] [place] [address] [facility] [address] [facility] [place] [address] Referral ID Status Reason Start Date Expiration Date Visits Requested Visits Authorized [id number] Pending Review Auto-Generat ed Referral 04/27/2023 05/26/2024 1 1 [facility] for referral (narrative)* Diagnostic Procedure Only (Routine) - Pending Review Specialty Diagnoses / Procedures Referred By Contac t Referred To Contact XR IMAGING Diagnoses Age-related osteoporosis without current pathological fracture Malignant neoplasm of upper-outer quadrant of right breast in female, estrogen receptor positive (HCC) Procedures DXA-FOREARM SKELETON DXA BONE DENSITY STUDY 1/>SITES APPENDICLR Liborio Morales MD [address] [place] [address] [place] [address] [place] [address] Referral ID Status Reason Start Date Expiration Date Visits Requested Visits Authorized [id number] Pending Review Auto-Generat ed Referral 07/16/2023 08/14/2024 [...] BI 2-VIEW BREAST INC Liborio Chau MD [address] [place] [address] DR [place] [address] [facility] [address] [place] [address] Referral ID Status Reason Start Date Expiration Date Visits Requested Visits Authorized [id number] Pending Review Auto-Generat ed Referral 07/16/2023 08/14/2024 1 1 [facility] Diagnostic Procedure Only (Routine) - New Request Specialty Diagnoses / Procedures Referred By Contac t Referred To Contact [facility] Diagnoses Encounter for screening mammogram for malignant neoplasm of breast Procedures MEMO SCREENING SCREENING MAMMOGRAPHY BI 2-VIEW BREAST INC Liborio Chau MD [address] [place] [address] [place] [address] [facility] [address] [place] [address] Referral ID Status Reason Start Date Expiration Date Visits Requested Visits Authorized [id number] New Request Auto-Generat ed Referral 07/14/2024 08/13/2025 1 1 [facility] Chief Complaint and Reason for Visit [...] this section No data available for this section No data available for this section Source Comments (unrecognize d section and content) In the event this informatio n is protected by the Federal Confidentiality of Alcohol and Drug Abuse Patient Records regulations: The Federal rules restrict any use of the information to criminally investigate or prosecute any alcohol or drug abuse patient.[facility] CenterIn the event this information is protected by the Federal Confidentiality of Alcohol and Drug Abuse Patient Records regulations: The Federal rules restrict any use of the information to criminally investigate or prosecute any alcohol or drug abuse patient.[facility] CenterIn the event this information is protected by the Federal Confidentiality of Alcohol and Drug Abuse Patient Records regulations: The Federal rules restrict any use of the information to criminally investigate or prosecute any alcohol or drug abuse patient.[facility] CenterIn the event this information is protected by the Federal Confidentiality of Alcohol and Drug Abuse Patient Records regulations: The Federal rules restrict any use of the information to criminally investigate or prosecute any alcohol or drug abuse patient.[facility] CenterIn the event this information is protected by the Federal Confidentiality of Alcohol and Drug Abuse Patient Records regulations: The Federal rules restrict any use of the information to criminally investigate or prosecute any alcohol or drug abuse patient.[facility] CenterIn the event this information is protected by the Federal Confidentiality of Alcohol and Drug Abuse Patient Records regulations: The Federal rules restrict any use of the information to criminally investigate or prosecute any alcohol or drug abuse patient.[facility] CenterIn the event this information is protected by the Federal Confidentiality of Alcohol and Drug Abuse Patient Records regulations: The Federal rules restrict any use of the information to criminally investigate or prosecute any alcohol or drug abuse patient.[facility] CenterIn the event this information is protected by the Federal Confidentiality of Alcohol and Drug Abuse Patient Records regulations: The Federal rules restrict any use of the information to criminally investigate or prosecute any alcohol or drug abuse patient.[facility] CenterIn the event this information is protected by the Federal Confidentiality of Alcohol and Drug Abuse Patient Records regulations: The Federal rules restrict any use of the information to criminally investigate or prosecute any alcohol or drug abuse patient.[facility] CenterIn the event this information is protected by the Federal Confidentiality of Alcohol and Drug Abuse Patient Records regulations: The Federal rules restrict any use of the information to criminally investigate or prosecute any alcohol or drug abuse patient.[facility] CenterIn the event this information is protected by the Federal Confidentiality of Alcohol and Drug Abuse Patient Records regulations: The Federal rules restrict any use of the information to criminally investigate or prosecute any alcohol or drug abuse patient.[facility] Reason for Visit (unrecogniz ed section and content) Reason Comments Refill Request Reason Comments Breast Cancer Reason Comments Orders Reason Comments Breast Cancer 1 year follow up Reason Comments DX code for screening mammogram needed Reason Comments Breast Cancer Follow up Reason Comments Results Care Teams (unrecognized sec tion and content) Miller Supervisor Relationship Specialty Start Date End Date Samm Palmer PCP - General Family Practice 01/15/12 Miller Supervisor Relationship Specialty Start Date End Date Juma Buckner, [address] [place] [address] PCP - General Internal Medicine 06/16/22 Miller Supervisor Relationship Specialty Start Date End Date Juma Buckner DO [address] [place] [address] PCP - General Internal Medicine 06/16/22 Miller Supervisor Relationship Specialty Start Date End Date Juma Buckner DO [address] [place] [address] PCP - General Internal Medicine 06/16/22 Team [...] Attending Provider Active Start: April 13, 2024 Miller Supervisor Relationship Specialty Start Date End Date Juma Buckner DO [address] [place] [address] PCP - General Internal Medicine 06/16/22 Miller Supervisor Relationship Specialty Start Date End Date Juma Buckner DO [address] [place] [address] PCP - General Internal Medicine 06/16/22 Miller Supervisor Relationship Specialty Start Date End Date Juma Buckner DO [address] [place] [address] PCP - General Internal Medicine 06/16/22 Miller Supervisor Relationship Specialty Start Date End Date Juma Buckner DO [address] [place] [facility] [place] [address] PCP - General Internal Medicine 06/16/22 Miller Supervisor Relationship Specialty Start Date End Date Juma Buckner [address] [place] [facility] [place] [address] PCP - General Internal Medicine 06/16/22 INFORMATION SOURCE (unrecogn ized section and content) DATE CREATED AUTHOR 04/08/2022 [facility] DATE CREATED AUTHOR AUTHOR'S ORGANIZ ATION 04/20/2024 [facility] DATE CREATED AUTHOR AUTHOR'S ORGANIZ ATION 05/30/2024 [facility] DATE CREATED AUTHOR AUTHOR'S ORGANIZ ATION 08/20/2024 [facility] DATE CREATED AUTHOR AUTHOR'S ORGANIZ ATION 09/01/2024 [facility] DATE CREATED AUTHOR AUTHOR'S ORGANIZ ATION 09/02/2024 [facility] DATE CREATED AUTHOR AUTHOR'S ORGANIZ ATION 09/07/2024 [facility] FOR RECORDS PERTAINING TO PATIENTS WHO [...] BE BASED ON THE PRIMARY CLINICAL RECORDS. [employer] [facility]. provides no warranty or guarantee of the accuracy or completeness of information in this document.
== END 2025-02-24 09:21 | disposition home or self-care (01) ==
LOC: RAD 09:21
PROVIDERS: PCP Internal Medicine; Visit Provider Urology
DX: N20.0 Calculus of kidney (principal)
CPT/HCPCS: 74018